=== PATIENT | male | born 1935 | race Caucasian/White ===

== ENCOUNTER → 2016-10-04 | Outpatient (CLI) | payer MEDICARE, BC ==
[~2016-10-04] MED LIST: ALB0.5V PO; ALBU2.5V4 IH; ASCO-262 PO; ASP325TEC PO; ASPI-9 PO; ASPI-983 PO; ATEN1TAB3 PO; ATEN25TA PO; ATEN50TA PO; ATN50T; Aspirin PO; CARV12.53 PO; CEFD300C3 PO; CHOL20003 PO; CLD600T; CLOP75TA28 PO; CLOP75TA69 PO; COD LIVER OIL; CRAN500C3 PO; DICL500C PO; DIGO125T6 PO; DILT240C53 PO; DIPH25CA6 PO; ENAL10TA; ENOX300V3 SQ; FAMO-119 PO; FURO10VI IV; FURO20TA4 PO; FURO40TA4 PO; GABA-488 PO; GUAI-366 PO; HYDR-3816 PO; INSA10V; INSA10V SQ; INSU100I13 SC; INSU100I13 SQ; INSU100I14 SQ; INSU100V SQ; INSU100V16 SC; INSU100V5 SQ; IPRA3AMP IH; IPRA3AMP NEB; IRON-17 PO; KRIL1CAP12 PO; LACT1CAP62 PO; LOSA25TA2 PO; LOSA25TA21 PO; LOSA50TA36 PO; MAGN400C PO; MAGN400T6 PO; MECL25TA56 PO; MELA1TAB10 PO; MULT-928 PO; MULT1TAB63 PO; MULT1TAB69 PO; NATTOKINASE; NATTOKINASE PO; NEOM14.217 TP; NIA500ERT; NIAC-4 PO; NIAC500T24 PO; NIAC500T9 PO; OMG1KC; ONDA4TAB10 PO; POLY119P5 PO; POTA-51 PO; POTA10CA43 PO; POTA20TA15 PO; POTA20TA8 PO; PRD10T PO; PRD20T PO; RMP5C; SAWP1CAP; TAMS0.4C2 PO; TAMS0.4C98 PO; TRIM100T PO; TURM500C7 PO; Tumeric PO; UBID200C; VANC10VI PO; VANC250C2 PO; VITA1CAP59; WARF-48 PO; WARF2.5T PO; WARF5TAB PO; WARF5TAB6 PO; WARF7.5T PO; WRF10T; WRF1T; WRF5T; WRF5T PO; [UNRECOGNIZED DRUG - CODE] PO
--- OUTSIDE RECORDS SUMMARY | 2016-10-04 10:23 | XMS REPORT | Continuity of Care Document ---
Author Author [facility] Organization [facility] Address Unknown Phone Unavailable Care Team Providers Care Lead Nurse Name Role Phone Jason Ru PCP [phone] Source Comments Some departments are not documenting in the electronic medical record. If you do not see the information that you expected, contact Release of Information in the Health Information Management department at [phone] for further assistance in locating additional records.[facility] Active Allergies and Adverse Reactions Allergen Noted Date Severity Reactions Comments Bactrim 06/30/2015 Medium RASH Current Medications Prescription Sig. Disp. Refills Start End Date Status Date warfarin (COUMADIN) 5 mg Take 5 mg by mouth daily. Active tablet Tues, th, fri, sun 5mg, mon, wed, fri 7.5mg7.5 4 days week 5mg 3 days week 05/31/16 magnesium oxide (MAG-OX) Take 500 mg by mouth Active 400 mg tablet daily. MULTIVITAMIN PO Take by mouth daily. Active insulin aspart 70/30 (+) Inject 30 Units into Active (NOVOLOG MIX 70-30) 100 area(s) as directed twice unit/mL (70/30) soln daily. 30 units in the afternoon and 33 units in the evening niacin 500 mg tablet Take 500 mg by mouth Active daily. other medication 1 Dose daily. Natokinase Active Cholecalciferol (Vitamin Take by mouth daily. Active D3) (VITAMIN D-3) 2,000 unit cap tamsulosin (FLOMAX) 0.4 Take 0.4 mg by mouth Active mg capsule daily. albuterol 0.083% Inhale 3 mL solution as 75 mL 11 10/20/19 Active (PROVENTIL; VENTOLIN) 2.5 directed every 4 hours as 16 mg /3 mL (0.083 %) needed for Wheezing. nebulizer solution Indications: CHRONIC OBSTRUCTIVE PULMONARY DISEASE ipratropium (ATROVENT) Inhale 2.5 mL by mouth 1 Bottle 11 10/20/19 Active 0.02 % nebulizer solution twice daily. Indications: 16 CHRONIC OBSTRUCTIVE ASTHMA diltiazem CD (CARDIZEM Take 2 Caps by mouth 60 Cap 11 10/26/19 Active CD) 240 mg capsule daily. 16 aspirin EC 81 mg tablet Take 81 mg by mouth Active daily. losartan (COZAAR) 25 mg Take 25 mg by mouth Active tablet daily. atenolol (TENORMIN) 25 mg Take 1 Tab by mouth 90 Tab 3 01/17/20 Active tablet daily. 16 furosemide (LASIX) 20 mg Take 1 Tab by mouth twice 180 Tab 3 03/29/20 Active tablet daily. 16 potassium chloride SR Take 2 Tabs by mouth 360 Cap 2 04/22/20 Active (K-DUR) 20 mEq tablet twice daily. 16 Active Problems Problem Noted Date VIPIN treated with BiPAP 05/31/2016 Last Assessment & Plan: Not tolerating current settings which have not been changed since his most recent polysom. -Autotitrating BiPAP on its way. -Will assess with nocox to evaluate need for O2 bleed in. Paroxysmal atrial fibrillation ([facility]) 06/30/2015 Overview: 12/02/13: Echo: LA size 5.5cm. EF 60%. Normal left ventricular systolic function. Mild MR, Mild TR. Essential hypertension 06/30/2015 COPD (chronic obstructive pulmonary disease) ([facility]) 06/30/2015 Last Assessment & Plan: COPD with improvement in wheezing and SOB with bronchodilator. Unfortunately he is so tremulous he cannot actuate a diskus, respimat or MDI. Given his limitation the best mechanism to deliver the medication is via nebulizer. He will not be able to be placed on maximal medical management but hopefully will be enough to improve his symptoms. Also discussed the need the evaluate him for hypoxemia. -alb and atrovent via nebulizer -Home health to train and evaluate his ability to use nebulizer/compressor -Ex ox and Noc ox Coronary artery disease involving [place] coronary artery of [place] heart 10/2014 without angina pectoris Diabetic neuropathy (HCC) 06/30/2015 Diabetes mellitus (HCC) 06/30/2015 Shortness of breath 06/30/2015 Last Assessment & Plan: Multifactorial with deconditioning, Afib, VIPIN Fatigue 06/30/2015 Obesity 06/30/2015 Peripheral neuropathy (HCC) 06/30/2015 Social History Tobacco Use Types Packs/Day Years Used Date Former Smoker Cigarettes 2 50 Smokeless Tobacco: Never Used Comments: Quit in 2002 Alcohol Use Drinks/Week oz/Week Comments No Last Filed Vital Signs Vital Sign Reading Time Taken Blood Pressure 154/88 05/31/2016 12:46 PM CDT Pulse 60 05/31/2016 12:46 PM CDT Temperature 36.7 C (98 F) 05/31/2016 12:46 PM CDT Respiratory Rate 20 05/31/2016 12:46 PM CDT Height 1.727 m (5' 8") 05/31/2016 12:46 PM CDT Weight 119.931 kg (264 lb 6.4 05/31/2016 12:46 PM CDT oz) Body Mass Index 40.21 05/31/2016 12:46 PM CDT Oxygen Saturation 96% 05/31/2016 12:46 PM CDT Plan of Care Date Type Specialty Providers Description 11/15/2016 Appointment Pulmonology Ronen Agosto MD [address] [facility] [address] [place] [address] [phone] (Fax) Health Maintenance Due Date Last Done Comments Physical (Comprehensive) 1942 Exam Pertussis Vaccine 1946 Tetanus Vaccine 1953 Dilated Eye Exam 1954 Foot Exam 1954 Hba1c 1954 Microalbumin 1954 Shingles Vaccine 1996 Prevnar/Pneumovax (#1) 2001 Influenza Vaccine 05/30/2016 Results from Last 3 Months Not on file
[2016-10-04 10:41] LABS: PROTHROMBIN TIME PATIENT 22.1 SEC (12.2-14.7)
== END ==
LOC: HH 10:19
PROVIDERS: ATTEND Internal Medicine Cardiovascular Disease
DX: I48.91 Unspecified atrial fibrillation (principal); I25.10 Atherosclerotic heart disease of native coronary artery without angina pectoris; D64.9 Anemia, unspecified; Z79.01 Long term (current) use of anticoagulants
CPT/HCPCS: 85610

== ENCOUNTER → 2016-10-04 | Outpatient (CLI) | payer MEDICARE, BC ==
--- OUTSIDE RECORDS SUMMARY | 2016-10-04 10:25 | XMS REPORT | Continuity of Care Document ---
Author Author [facility] Organization [facility] Address Unknown Phone Unavailable Care Team Providers Care Occasional Babysitter Name Role Phone Jason Ru PCP [phone] Source Comments Some departments are not documenting in the electronic medical record. If you do not see the information that you expected, contact Release of Information in the Health Information Management department at [phone] for further assistance in locating additional records.[facility] Active Allergies and Adverse Reactions Allergen Noted [...] for O2 bleed in. Paroxysmal atrial fibrillation ([facility]) 06/30/2015 Overview: 12/02/13: Echo: LA size 5.5cm. EF 60%. Normal left ventricular systolic function. Mild MR, Mild TR. Essential hypertension 06/30/2015 COPD (chronic obstructive pulmonary disease) ([facility]) 06/30/2015 Last Assessment & Plan: COPD with [...] Noc ox Coronary artery disease involving [place] coronary artery of [place] heart 10/2014 without angina pectoris Diabetic neuropathy [...] 11/15/2016 Appointment Pulmonology Ronen Agosto MD [address] [facility] [address] [place] [address] [phone] (Fax) Health Maintenance Due Date Last Done Comments Physical (Comprehensive) 1942 Exam Pertussis Vaccine 1947 Tetanus Vaccine 1953 Dilated Eye Exam 1954 Foot Exam 1954 Hba1c 1954 Microalbumin 1954 Shingles Vaccine 1996 Prevnar/Pneumovax (#1) 2001 Influenza Vaccine 05/30/2016 Results from Last 3 Months Not on file
[2016-10-04 10:28] LABS: BASOPHILS % (AUTO) 0 % (0-10); EOSINOPHILS # (AUTO) 0.2 10^3/uL (0.0-0.3); EOSINOPHILS % (AUTO) 1 % (0-10); LYMPHOCYTES % (AUTO) 19 % (12-44); MEAN CORPUSCULAR HEMOGLOBIN 32 PG (25-34); MEAN CORPUSCULAR HGB CONC 35 G/DL (32-36); MEAN CORPUSCULAR VOLUME 90 FL (80-99); MEAN PLATELET VOLUME 10.7 FL (7.4-10.4); MONOCYTES # (AUTO) 1.4 X 10^3 (0.0-1.0); MONOCYTES % (AUTO) 14 % (0-12); NEUTROPHILS # (AUTO) 6.9 X 10^3 (1.8-7.8); NEUTROPHILS % (AUTO) 66 % (42-75); PLATELET COUNT 113 10^3/uL (130-400); RED BLOOD COUNT 4.37 10^6/uL (4.35-5.85); RED CELL DISTRIBUTION WIDTH 14.4 % (10.0-14.5); WHITE BLOOD COUNT 10.4 10^3/uL (4.3-11.0)
[2016-10-04 10:52] LABS: ALBUMIN 3.3 G/DL (3.2-4.5); BILIRUBIN,TOTAL 0.8 MG/DL (0.1-1.0); CALCIUM 9.2 MG/DL (8.5-10.1); CREATININE SERUM 1.24 MG/DL (0.60-1.30); TOTAL PROTEIN 5.6 G/DL (6.4-8.2)
== END ==
LOC: HH 10:21
PROVIDERS: ATTEND Family Medicine
DX: I48.91 Unspecified atrial fibrillation (principal); I11.0 Hypertensive heart disease with heart failure; I50.9 Heart failure, unspecified; I25.10 Atherosclerotic heart disease of native coronary artery without angina pectoris; E11.51 Type 2 diabetes mellitus with diabetic peripheral angiopathy without gangrene; Z79.01 Long term (current) use of anticoagulants
CPT/HCPCS: 80053; 85025

== ENCOUNTER 2016-10-13 21:18 | Inpatient (IN) | payer MEDICARE, BC ==
[~2016-10-13] VITALS: Ht 175.3 cm; Wt 127.3 kg
[~2016-10-13 21:18] MED LIST changes: -ALB0.5V PO; -ALBU2.5V4 IH; -ASCO-262 PO; -CARV12.53 PO; -CLOP75TA28 PO; -CLOP75TA69 PO; -CRAN500C3 PO; -DIGO125T6 PO; -DIPH25CA6 PO; -ENOX300V3 SQ; -FAMO-119 PO; -FURO10VI IV; +FUROSEMIDE 40 MG/4 ML INJ (LASIX) ONE; -GABA-488 PO; -GUAI-366 PO; -HYDR-3816 PO; -INSU100V SQ; -INSU100V16 SC; -INSU100V5 SQ; -IRON-17 PO; -LACT1CAP62 PO; -LOSA25TA2 PO; -MAGN400T6 PO; -MELA1TAB10 PO; -MULT-928 PO; -NEOM14.217 TP; -NIAC500T9 PO; -ONDA4TAB10 PO; -POLY119P5 PO; -POTA-51 PO; +RX-NITROGLYCERIN 0.4 MG TAB BTL 25'S SL ONE; -TAMS0.4C98 PO; -TRIM100T PO; -TURM500C7 PO; -Tumeric PO; -WARF2.5T PO
--- OUTSIDE RECORDS SUMMARY | 2016-10-13 21:24 | XMS REPORT | Continuity of Care Document ---
Author Author [facility] Organization [facility] Address Unknown Phone Unavailable Care Team Providers Care Injection Wax Molder Name Role Phone Jason Ru PCP [phone] Source Comments Some departments are not documenting in the electronic medical record. If you do not see the information that you expected, contact Release of Information in the Health Information Management department at [phone] for further assistance in locating additional records.[facility] Active Allergies and Adverse Reactions [...] daily. 16 Active Problems Problem Noted Date VPIIN treated with BiPAP 05/31/2016 Last Assessment & Plan: Not tolerating current settings which have not been changed since his most recent polysom. -Autotitrating BiPAP on its way. -Will assess with nocox to evaluate need for O2 bleed in. Paroxysmal atrial fibrillation ([facility]) 06/30/2015 Overview: 12/02/13: Echo: LA size 5.5cm. EF 60%. Normal left ventricular systolic function. Mild MR, Mild TR. Essential hypertension 06/30/2015 COPD (chronic obstructive pulmonary disease) ([facility]) 06/30/2015 Last Assessment & Plan: [...] and Noc ox Coronary artery disease involving [place] coronary artery of [place] heart 10/2014 without angina pectoris Diabetic neuropathy (HCC) 06/30/2015 Diabetes mellitus (HCC) 06/30/2015 Shortness of breath 06/30/2015 Last Assessment & Plan: Multifactorial with deconditioning, Afib, VPIIN Fatigue 06/30/2015 Obesity 06/30/2015 Peripheral neuropathy (HCC) [...] 11/15/2016 Appointment Pulmonology Ronen Agosto MD [address] [facility] [address] [place] [address] [phone] (Fax) Health Maintenance Due Date Last Done Comments Physical (Comprehensive) 1942 Exam Pertussis Vaccine 1947 Tetanus Vaccine 1953 Dilated Eye Exam 1954 Foot Exam 1954 Hba1c 1954 Microalbumin 1954 Shingles Vaccine 1996 Prevnar/Pneumovax (#1) 2001 Influenza Vaccine 05/30/2016 Results from Last 3 Months Not on file
--- NOTE | 2016-10-13 21:27 | ED Dyspnea ---
General Stated Complaint: SOA Source of Information: EMS Exam Limitations: No Limitations (DEREK ST APRN) History of Present Illness Time Seen by Provider: 21:25 Initial Comments To ER per EMS from home with reports of shortness of breath since earlier this evening. He wears oxygen at 2 L [id number] for history of COPD. reported that after a trip to the bathroom he returned and his oxygen saturation red 60 percent and he appeared very dyspneic. She increased his oxygen level. EMS arrived and he was ultimately started on CPAP With an increase in his oxygen saturations 96 percent of his mentation did not improve nor did his appearance. He was recently discharged from the hospital from the rehabilitation unit following a prolonged bout of pneumonia complicated by COPD , atrial fibrillation, peripheral vascular disease and heart failure with preserved ejection fraction. Timing/Duration: Unknown Severity: Severe (DEREK ST APRN) Initial Comments reports that he has had increasing shortness of breath over the last 1-2 days but markedly severe tonight. No report of vomiting or fevers at home. reports that he had significant runny nose today as well. Timing/Duration: 24 Hours, Increasing Prior Episodes/Possible Cause: Occasional Episodes Modifying Factors: Improves With Coughing Associated Symptoms: Chest Pain, Cough, Edema, Fever, Weakness (OKSANA MOODY MD) Allergies and Home Medications Allergies Coded Allergies: sulfamethoxazole (Verified Allergy, Mild, RASH, 10/31/15) trimethoprim (Verified Allergy, Mild, RASH, 10/31/15) Home Medications 2,000 UNITS PO DAILY (Reported) Aspirin 81 Mg Tablet.dr 81 MG PO HS (Reported) Atenolol 50 Mg Tablet #30 50 MG PO DAILY Prescribed by: SASCHA MORTENSEN on 09/16/16851 Cholecalciferol (Vitamin D3) 2,000 Unit Capsule 2,000 UNIT PO DAILY (Reported) Diltiazem HCl 240 Mg Cap.er.24h 480 MG PO DAILY (Reported) Furosemide 40 Mg Tablet #30 40 MG PO DAILY@0700 Prescribed by: SASCHA MORTENSEN on 09/16/16851 Furosemide 40 Mg Tablet #30 40 MG PO DAILY@1400 Prescribed by: SASCHA MORTENSEN on 09/16/16851 Insulin Aspart 300 Units/3 Ml Solution 32-33 UNITS SQ HS (Reported) Insuln Asp Prt/Insulin Aspart 300 Units/3 Ml Solution 30 UNITS SQ DAILY@1300 ( Reported) Ipratropium/Albuterol Sulfate 3 Ml Ampul.neb 30Days 3 ML IH Q4H PRN PRN SHORTNESS OF BREATH Prescribed by: SASCHA MORTENSEN on 09/06/16927 Ipratropium/Albuterol Sulfate 3 Ml Ampul.neb 3 ML IH BID PRN PRN SHORTNESS OF BREATH (Reported) Losartan Potassium 50 Mg Tablet #30 50 MG PO DAILY Prescribed by: SASCHA MORTENSEN on 09/16/16851 Magnesium Oxide 500 Mg Tablet 500 MG PO HS (Reported) Multivitamin 1 Each Tablet 1 TAB PO DAILY (Reported) Niacinamide 500 Mg Tablet 500 MG PO DAILY (Reported) Potassium Chloride 20 Meq Tab.er.prt 40 MEQ PO BID (Reported) TAKES 2 (20 MEQ) TABLETS Prednisone 20 Mg Tab #30 20 MG PO DAILY Prescribed by: SASCHA MORTENSEN on 09/16/16851 Tamsulosin HCl 0.4 Mg Cap.er.24h 0.4 MG PO EVERY EVENING (Reported) Warfarin Sodium 5 Mg Tablet 30Days 5 MG PO DAILY Prescribed by: SASCHA MORTENSEN on 09/06/16927 Constitutional: see HPINo chills, No fever, other (unable to obtain review of systems due to his severe respiratory distress) (DEREK ST APRN) Other Unable to complete review of systems due to altered mental status (OKSANA MOODY MD) Past Ncoqkan-Maesvj-Bkkvav Hx Patient Social History Type Used: Cigarettes Former Smoker/When Quit: Apr 24, 2005 Recent Hopitalizations: No (DEREK ST APRN) Immunizations Up To Date Tetanus Booster (TDap): Less than 5yrs PED Vaccines UTD: No Date of Pneumonia Vaccine: Aug 28, 2016 Date of Influenza Vaccine: Aug 28, [address] ([address] APRN) Seasonal Allergies Seasonal Allergies: No (DEREK ST APRN) Surgeries HX Surgeries: Yes (CATARACTS, CARPAL TUNNEL, BILAT.THUMBS) Surgeries: Eye Surgery, Orthopedic, Tonsillectomy (DEREK ST APRN) Respiratory Hx Respiratory Disorders: Yes (CPAP AT HS) Respiratory Disorders: Sleep Apnea, COPD (DEREK ST APRN) Cardiovascular Hx Cardiac Disorders: Yes Cardiac Disorders: Atrial Fibrillation, High Cholesterol, Hypertension (DEREK ST APRN) Neurological Hx Neurological Disorders: Yes (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) Neurological Disorders: Neuropathy (DEREK ST APRN) Reproductive System Hx Reproductive Disorders: No Sexually Transmitted Disease: No HIV/AIDS: No (DEREK ST APRN) Genitourinary Hx Genitourinary Disorders: Yes Genitourinary Disorders: Benign Prostatic Hyperpl (DEREK ST APRN) Gastrointestinal Hx Gastrointestinal Disorders: No (DEREK ST APRN) Musculoskeletal Hx Musculoskeletal Disorders: No (DEREK ST APRN) Endocrine Hx Endocrine Disorders: Yes Endocrine Disorders: Diabetes, Insulin dep (DEERK ST APRN) HEENT HX ENT Disorders: Yes HEENT Disorders: Cataract, Macular Degeneration Hearing Impairment: Hard of Hearing (DEREK ST APRN) Cancer Hx Cancer: Yes (BASAL CELL CARCINOMA) Cancer: Skin (DEREK ST APRN) Psychosocial Hx Psychiatric Problems: No (DEREK ST APRN) Integumentary HX Skin/Integumentary Disorder: Yes (CELLULITIS IN LEFT KNEE EARLY OCTOBER 2013) Skin/Integumentary Disorders: Recent Skin Changes (DEREK ST APRN) Blood Transfusions Hx Blood Disorders: No Adverse Reaction to a Blood Tr: No (DEREK ST APRN) Reviewed Nursing Assessment Reviewed/Agree w Nursing PMH: Yes (OKSANA MOODY MD) Family Medical History Significant Family History: Cancer Family Medial History: COPD 19 FATHER Colon cancer 19 MOTHER Diabetes mellitus G8 SISTER Drug abuse G8 SISTER Lung cancer 19 FATHER Polio G8 BROTHER Sarcoidosis G8 BROTHER (DEREK ST APRN) Family Medial History: COPD 19 FATHER Colon cancer 19 MOTHER Diabetes mellitus G8 SISTER Drug abuse G8 SISTER Lung cancer 19 FATHER Polio G8 BROTHER Sarcoidosis G8 BROTHER (OKSANA MOODY MD) Physical Exam Vital Signs Vital Sign - Last 12Hours 10/13/16 10/13/16 10/13/16 21:18 22:30 23:10 Temp 97.9 Pulse 111 Resp 45 B/P 153/98 Pulse Ox 94 O2 Delivery NIV/CPAP O2 Flow Rate 70 FiO2 100 (OKSANA MOODY MD) Vital Signs Capillary Refill : (DEREK ST APRN) General Appearance: Chronically ill Severe Distress HEENT: PERRL/EOMI Pharynx Normal Neck: Non Tender Supple Respiratory: Accessory Muscle Use Crackles Decreased Breath Sounds Respiratory Distress Wheezing Cardiovascular: Irregularly Irregular Tachycardia Gastrointestinal: Non Tender Soft Extremity: Non Tender Pedal Edema (4+to knees bilaterally) Neurologic/Psychiatric: Disoriented x3 Motor Weakness Other (mumbling a few crosswords and moving all 4 extremities.) Skin: Normal Color Warm/Dry (OKSANA MOODY MD) Date of ETT Placement: Oct 13, 2016 Time of ETT Placement: 21:30 Intubation Method: orotracheal Medications: Etomidate, Fentanyl, Succinylcholine, Versed Positive End Tide CO2: Yes Breath Sounds after Intubation: bilateral-equal Intubation Complications: no complications Post Intubation Xray: Yes (OKSANA MOODY MD) Progress/Results/Core Measures Results/Orders Lab Results Laboratory Tests Test 10/13/16 21:28 10/13/16 21:44 10/13/16 21:53 Range/Units Alanine Aminotransferase (ALT/SGPT) 41 0-55 U/L Albumin 3.9 3.2-4.5 G/DL Alkaline Phosphatase 73 40-136 U/L Anion Gap 12 5-14 MMOL/L Aspartate Amino Transf (AST/SGOT) 37 H 5-34 U/L B-Type Natriuretic Peptide 925.6 H <100.0 PG/ML BUN/Creatinine Ratio 22 Band Neutrophils 1 % Basophils # (Auto) 0.1 0.0-0.1 10^3/uL Basophils % (Manual) 0 % Basophils (%) (Auto) 0 0-10 % Blood Morphology Comment NORMAL Blood Urea Nitrogen 28 H 7-18 MG/DL Calcium Level 9.5 8.5-10.1 MG/DL Carbon Dioxide Level 28 21-32 MMOL/L Chloride Level 97 L 98-107 MMOL/L Creatinine 1.27 0.60-1.30 MG/DL Eosinophils # (Auto) 0.2 0.0-0.3 10^3/uL Eosinophils % (Manual) 0 % Eosinophils (%) (Auto) 1 0-10 % Estimat Glomerular Filtration Rate 55 Glucose Level 273 H 70-105 MG/DL Hematocrit 43 40-54 % Hemoglobin 15.3 13.3-17.7 G/DL INR Comment 1.9 H 0.8-1.4 Lactic Acid Level 1.2 0.5-2.0 MMOL/L Lymphocytes # (Auto) 3.2 1.0-4.0 X 10^3 Lymphocytes % (Manual) 15 % Lymphocytes (%) (Auto) 15 12-44 % Mean Corpuscular Hemoglobin 32 25-34 PG Mean Corpuscular Hemoglobin Concent 35 32-36 G/DL Mean Corpuscular Volume 91 80-99 FL Mean Platelet Volume 10.5 H 7.4-10.4 FL Metamyelocytes % 2 % Monocytes # (Auto) 3.2 H 0.0-1.0 X 10^3 Monocytes % (Manual) 11 % Monocytes (%) (Auto) 15 H 0-12 % Neutrophils # (Auto) 14.5 H 1.8-7.8 X 10^3 Neutrophils % (Manual) 71 % Neutrophils (%) (Auto) 69 42-75 % Platelet Count 172 130-400 10^3/uL Potassium Level 3.6 3.6-5.0 MMOL/L Prothrombin Time 21.6 H 12.2-14.7 SEC Red Blood Count 4.77 4.35-5.85 10^6/uL Red Cell Distribution Width 14.7 H 10.0-14.5 % Sodium Level 137 135-145 MMOL/L Total Bilirubin 0.9 0.1-1.0 MG/DL Total Protein 7.2 6.4-8.2 G/DL White Blood Count 21.1 H 4.3-11.0 10^3/uL Kadeem Test YES-POS Arterial Blood Base Excess 1.5 -2.5-2.5 MMOL/L Arterial Blood HCO3 31 H 23-27 MMOL/L Arterial Blood Oxygen Saturation 99 94-100 % Arterial Blood Partial Pressure CO2 71 *H 35-45 MMHG Arterial Blood Partial Pressure O2 184 H 79-93 MMHG Arterial Blood Total CO2 33.3 H 21.0-31.0 MMOL/L Arterial Blood pH 7.26 *L 7.37-7.43 Blood Gas Inspired Oxygen 100% Blood Gas Patient Temperature 97.4 Blood Gas Puncture Site RT RADIAL Blood Gas Ventilator Setting YES Urine Bacteria NONE /HPF Urine Bilirubin NEGATIVE NEGATIVE Urine Casts NONE /LPF Urine Clarity SLIGHTLY CLOUDY Urine Color YELLOW Urine Crystals NONE /LPF Urine Culture Indicated NO Urine Glucose (UA) 3+ H NEGATIVE Urine Ketones NEGATIVE NEGATIVE Urine Leukocyte Esterase NEGATIVE NEGATIVE Urine Mucus NEGATIVE /LPF Urine Nitrite NEGATIVE NEGATIVE Urine Protein 4+ NEGATIVE Urine RBC 10-25 H /HPF Urine RBC (Auto) 3+ H NEGATIVE Urine Specific [place] 1.015 L 1.016-1.022 Urine Urobilinogen NORMAL NORMAL MG/DL Urine WBC NONE /HPF Urine pH 6 5-9 (OKSANA MOODY MD) Micro Results Microbiology 10/13/16 Influenza Types A,B Antigen (JOSEPH) - Final, Complete (OKSANA MOODY MD) My Orders Orders-OKSANA MOODY MD Catheter(Urinary) Insert & Ass ,15 (10/13/16 21:39) Ng Tube Insert & Assessment (10/13/16 21:39) O2 (10/13/16 21:39) Monitor-Rhythm Ecg Trace Only (10/13/16 21:39) Propofol Injection (Diprivan Injection) (10/13/16 22:15) Propofol Drip (Icu) (Diprivan Drip (Icu) (10/13/16 22:30) Influenza A And B Antigens (10/13/16 22:27) Propofol Drip (Icu) (Diprivan Drip (Icu) (10/13/16 22:30) Levofloxacin 750 Mg/150 Ml Iv (Levaquin (10/13/16 22:58) (OKSANA MOODY MD) Medications Given in ED Current Medications Medications Dose Ordered Sig/Nidhi Route Start Time Stop Time Status Last Admin Dose Admin Furosemide 80 mg ONCE ONCE IVP 10/13/16 21:30 10/13/16 21:31 DC 10/13/16 21:45 80 MG (OKSANA MOODY MD) Vital Signs/I&O Vital Sign - Last 12Hours 10/13/16 10/13/16 10/13/16 10/13/16 21:18 22:30 22:49 23:10 Temp 97.9 98.5 Pulse 111 75 66 Resp 45 16 16 B/P 153/98 109/68 Pulse Ox 94 100 100 100 O2 Delivery NIV/CPAP Mechanical Ventilator Mechanical Ventilator O2 Flow Rate 70 FiO2 100 80 (OKSANA MOODY MD) Progress Note : Progress Note Seen and evaluated on arrival by EMS. Patient is in extremis with significant respiratory distress despite CPAP at 10. Patient's mentation declining to despite improvement in his O2 saturations concerning for hypercarbic respiratory failure. Patient has significant crackles bilaterally with hypertension. I did discuss with the on her arrival shortly after his arrival that patient may need intubation. She states that she does not want her to and to do everything we can. We elected for emergent intubation. He was intubated by me and placed on ventilator after etomidate and succinylcholine. We will continue postintubation sedation with propofol. Interim dosing of Versed and fentanyl given. Labs, EKG, chest x-ray, OG tube and Soriano catheter placed. Lasix 80 mg IV given. Monitor patient. 2229: Patient did receive rocuronium 50 mg IV as he was overbreathing the vent. Patient did become hypotensive with propofol and this was titrated down. Vent was changed. Monitor patient. 2299: Patient tolerating new vent much better. Propofol has been titrated up to 25 mcg/kg/m and patient's blood pressure has stabilized at 109/68 with a heart rate of 72 and O2 sat 98 percent on vent at rate of 16 with tidal line 500 and PEEP of 5. FiO2 titrated down to 50 percent currently. I have discussed the case with Dr. Chamberlain. Patient does have findings of right-sided pneumonia. This would be healthcare acquired due to recent hospitalization. Levaquin 500 mg IV has been given. Patient's lactic acid is 1.2. Currently he is not hypotensive. Patient does have significant volume overload concerns and high volume fluid resuscitation would be detrimental to this patient. I do believe that hypotension was related to his medication effect and initial ventilator concerns. Overall that has improved and he has been titrated up on his propofol. He is not hypotensive. He does have findings of sepsis but not septic shock and we will hold fluid resuscitation now. We are actively trying to decrease overall body volume of fluid with Lasix currently. Admit inpatient status, critical condition. Family agrees with plan. (OKSANA MOODY MD) ECG Initial ECG Impression Date: Oct 13, 2016 Initial ECG Impression Time: 21:36 Initial ECG Rate: 96 Initial ECG Rhythm: A Fib/Flutter Comment Atrial fibrillation rate 96 with left bundle branch block. Normal axis. No evidence of ST elevation NM. Similar to previous of 09/02/16. Interpreted by me. (OKSANA MOODY MD) Diagnostic Imaging Diagonstic Imaging: Xray Plain Films/CT/US/NM/MRI: chest Comments Right middle lung pneumonia. ET tube in good position. OG tube in good position. Reviewed: Reviewed by Me (OKSANA MOODY MD) Departure Communication Time/Spoke to Admitting Phy: 23:00 (OKSANA MOODY MD) Impression Impression: Primary Impression: Acute respiratory failure with hypoxia and hypercapnia Additional Impressions: Pneumonia involving right lung Qualified Code: J18.1 - Lobar pneumonia, unspecified organism Volume overload Qualified Code: E87.70 - Fluid overload, unspecified Disposition: ADMITTED INPATIENT Condition: Critical Decision to Admit Reason: Admit from ER (General) Decision to Admit/Date: Oct 13, 2016 Time/Decision to Admit Time: 23:00 (OKSANA MOODY MD) Departure-Patient Inst. Referrals: ASCENCION CADENA MD (PCP/Family) Primary Care Physician DEREK ST APRN Oct 13, 2016 21:27 OKSANA MOODY MD Oct 13, 2016 21:48
[2016-10-13] MEDS ORDERED: PROPOFOL DRIP (ICU) 100 ML IV ONE (21:28)
[2016-10-13] MEDS ORDERED: NITROGLYCERIN DRIP 25 MG/D5W 250 ML IV SCH (21:30)
[2016-10-13] MEDS ORDERED: FUROSEMIDE 40 MG/4 ML INJ (LASIX) IVP ONE (21:30)
[2016-10-13 21:40] LABS: BASOPHILS # (AUTO) 0.1 10^3/uL (0.0-0.1); BASOPHILS % (AUTO) 0 % (0-10); EOSINOPHILS # (AUTO) 0.2 10^3/uL (0.0-0.3); EOSINOPHILS % (AUTO) 1 % (0-10); LYMPHOCYTES # (AUTO) 3.2 X 10^3 (1.0-4.0); LYMPHOCYTES % (AUTO) 15 % (12-44); MEAN CORPUSCULAR HEMOGLOBIN 32 PG (25-34); MEAN CORPUSCULAR HGB CONC 35 G/DL (32-36); MEAN CORPUSCULAR VOLUME 91 FL (80-99); MEAN PLATELET VOLUME 10.5 FL (7.4-10.4); MONOCYTES # (AUTO) 3.2 X 10^3 (0.0-1.0); MONOCYTES % (AUTO) 15 % (0-12); NEUTROPHILS # (AUTO) 14.5 X 10^3 (1.8-7.8); NEUTROPHILS % (AUTO) 69 % (42-75); PLATELET COUNT 172 10^3/uL (130-400); RED BLOOD COUNT 4.77 10^6/uL (4.35-5.85); RED CELL DISTRIBUTION WIDTH 14.7 % (10.0-14.5); WHITE BLOOD COUNT 21.1 10^3/uL (4.3-11.0)
[2016-10-13 21:46] LABS: INR 1.9 (0.8-1.4); PROTHROMBIN TIME PATIENT 21.6 SEC (12.2-14.7)
[2016-10-13 21:52] LABS: ABG BASE EXCESS 1.5 MMOL/L (-2.5-2.5); ABG HCO3 31 MMOL/L (23-27); ABG OXYGEN SATURATION 99 % (94-100); ABG PO2 184 MMHG (79-93); ABG TCO2 33.3 MMOL/L (21.0-31.0)
[2016-10-13 21:55] LABS: ABG PCO2 71 MMHG (35-45); ABG PH 7.26 (7.37-7.43)
[2016-10-13 21:56] LABS: ALLENS TEST YES-POS; PATIENT TEMP 97.4
[2016-10-13 21:57] LABS: ALBUMIN 3.9 G/DL (3.2-4.5); BILIRUBIN,TOTAL 0.9 MG/DL (0.1-1.0); CALCIUM 9.5 MG/DL (8.5-10.1); CREATININE SERUM 1.27 MG/DL (0.60-1.30); POTASSIUM 3.6 MMOL/L (3.6-5.0); TOTAL PROTEIN 7.2 G/DL (6.4-8.2)
[2016-10-13] MEDS ORDERED: ETOMIDATE IV SOLN 20 MG/10 ML VIAL IV ONE (22:00)
[2016-10-13] MEDS ORDERED: fentaNYL INJECTION 100 MCG/2 ML AMP INJ ONE (22:00)
[2016-10-13] MEDS ORDERED: MIDAZOLAM 5 MG/5 ML (VERSED) VIAL INJ ONE (22:00)
[2016-10-13] MEDS ORDERED: ROCURONIUM 50 MG/5 ML (ZEMURON) VIAL IV ONE (22:00)
[2016-10-13] MEDS ORDERED: SUCCINYLCHOLINE INJ 100 MG/5 ML SYR INJ ONE (22:00)
[2016-10-13 22:03] LABS: BILIRUBIN,URINE NEGATIVE (NEGATIVE); KETONES,URINE NEGATIVE (NEGATIVE); LEUKOCYTE ESTERASE ,URINE NEGATIVE (NEGATIVE); NITRITE,URINE NEGATIVE (NEGATIVE); PH,URINE 6 (5-9); PROTEIN,URINE 4+ (NEGATIVE); UROBILINOGEN,URINE NORMAL (NORMAL)
[2016-10-13] MEDS ORDERED: DOPamine DRIP 250 ML IV ONE (22:03)
[2016-10-13 22:10] LABS: BAND NEUTROPHILS 1 %; BASOPHILS % (MANUAL) 0 %; EOSINOPHILS % (MANUAL) 0 %; LYMPHOCYTES % (MANUAL) 15 %; METAMYELOCYTES % 2 %; NEUTROPHILS % (MANUAL) 71 %
[2016-10-13] MEDS ORDERED: PROPOFOL INJECTION 50 ML IV SCH (22:15)
[2016-10-13] MEDS ORDERED: PROPOFOL DRIP (ICU) 100 ML IV SCH ×2 (22:30)
[2016-10-13] MEDS ORDERED: LEVOFLOXACIN 750 MG/150 ML IV 150 ML IV STA (22:58)
[2016-10-13 23:10] VITALS: BP 109/68
[2016-10-13 23:47] VITALS: BP 111/52
[2016-10-14] VITALS (36 sets, daily range): BP systolic 100–142; BP diastolic 50–94
[2016-10-14] MEDS ORDERED: NS IV 1000 ML 1,000 ML ONE (00:01)
[2016-10-14] MEDS ORDERED: VANCOMYCIN 1 GM/NS 250 ML IVPB IV SCH ×2 (00:30)
[2016-10-14] MEDS: NS IV 1000 ML 1,000 ML IV SCH ×2 (00:33→13:16)
[2016-10-14] MEDS: CEFEPIME 2 GM/NS 50 ML IVPB IV SCH ×4 (01:26→15:45)
[2016-10-14] MEDS ORDERED: PRD20T PO (03:09)
[2016-10-14] MEDS ORDERED: Tumeric PO (03:09)
[2016-10-14] MEDS ORDERED: LACT1CAP62 PO (03:11)
[2016-10-14 04:41] LABS: BASOPHILS % (AUTO) 0 % (0-10); EOSINOPHILS # (AUTO) 0.1 10^3/uL (0.0-0.3); EOSINOPHILS % (AUTO) 1 % (0-10); LYMPHOCYTES # (AUTO) 1.2 X 10^3 (1.0-4.0); LYMPHOCYTES % (AUTO) 12 % (12-44); MEAN CORPUSCULAR HEMOGLOBIN 32 PG (25-34); MEAN CORPUSCULAR HGB CONC 35 G/DL (32-36); MEAN CORPUSCULAR VOLUME 92 FL (80-99); MEAN PLATELET VOLUME 10.5 FL (7.4-10.4); MONOCYTES # (AUTO) 1.9 X 10^3 (0.0-1.0); MONOCYTES % (AUTO) 18 % (0-12); NEUTROPHILS # (AUTO) 7.3 X 10^3 (1.8-7.8); NEUTROPHILS % (AUTO) 69 % (42-75); PLATELET COUNT 114 10^3/uL (130-400); RED BLOOD COUNT 3.55 10^6/uL (4.35-5.85); RED CELL DISTRIBUTION WIDTH 14.6 % (10.0-14.5); WHITE BLOOD COUNT 10.5 10^3/uL (4.3-11.0)
[2016-10-14 05:08] LABS: ALBUMIN 2.7 G/DL (3.2-4.5); CALCIUM 8.7 MG/DL (8.5-10.1); CREATININE SERUM 1.31 MG/DL (0.60-1.30); MAGNESIUM 2.1 MG/DL (1.8-2.4); PHOSPHORUS 3.8 MG/DL (2.3-4.7); POTASSIUM 3.6 MMOL/L (3.6-5.0); TOTAL PROTEIN 4.7 G/DL (6.4-8.2)
[2016-10-14 05:35] LABS: ABG BASE EXCESS 5.4 MMOL/L (-2.5-2.5); ABG HCO3 31 MMOL/L (23-27); ABG OXYGEN SATURATION 93 % (94-100); ABG PCO2 48 MMHG (35-45); ABG PH 7.43 (7.37-7.43); ABG PO2 61 MMHG (79-93); ABG TCO2 32.4 MMOL/L (21.0-31.0)
[2016-10-14 05:36] LABS: ALLENS TEST YES-POS
[2016-10-14] MEDS: MAGNESIUM 1 GM/100 ML IVPB 100 ML IV SCH (06:00)
[2016-10-14] MEDS: POTASSIUM CL 10MEQ/50ML IVPB 50 ML IV SCH ×3 (06:00→07:54)
[2016-10-14] MEDS: KCL 20 MEQ TAB (K-DUR) PO SCH (06:00)
--- NOTE | 2016-10-14 07:09 | Pulmonary Consultation ---
History of Present Illness History of Present Illness Date of Consultation 10/14/16 07:02 Date of Admission History of Present Illness 80yo with hx of severe COPD oxygen dependents presents secondary to worsening SOB. PT was placed on CPAP and oxygen saturations imporved. PT was intubated in ED. He was recently discharged from the hospital from the rehabilitation unit following a prolonged bout of pneumonia complicated by COPD, atrial fibrillation , peripheral vascular disease and heart failure with preserved ejection fraction. I am consulted for pulmonary management. Allergies and Home Medications Allergies Coded Allergies: sulfamethoxazole (Verified Allergy, Mild, RASH, 10/31/15) trimethoprim (Verified Allergy, Mild, RASH, 10/31/15) Home Medications 2,000 UNITS PO DAILY (Reported) 500 MG PO DAILY (Reported) Aspirin 81 Mg Tablet.dr 81 MG PO DAILY (Reported) Atenolol 50 Mg Tablet #30 50 MG PO DAILY Prescribed by: SASCHA MORTENSEN on 09/16/16 0852 Cholecalciferol (Vitamin D3) 2,000 Unit Capsule 2,000 UNIT PO DAILY (Reported) Diltiazem HCl 240 Mg Cap.er.24h 480 MG PO DAILY (Reported) Furosemide 40 Mg Tablet #30 40 MG PO DAILY@0700 Prescribed by: SASCHA MORTENSEN on 09/16/16 0852 Furosemide 40 Mg Tablet #30 40 MG PO DAILY@1400 Prescribed by: SASCHA MORTENSEN on 09/16/16 08 Insulin Aspart 300 Units/3 Ml Solution 32-33 UNITS SQ HS (Reported) Insuln Asp Prt/Insulin Aspart 300 Units/3 Ml Solution 30 UNITS SQ DAILY ( Reported) Daily in am Ipratropium/Albuterol Sulfate 3 Ml Ampul.neb 30Days 3 ML IH Q4H PRN PRN SHORTNESS OF BREATH Prescribed by: SASCHA MORTENSEN on 09/06/16 0928 Ipratropium/Albuterol Sulfate 3 Ml Ampul.neb 3 ML IH BID PRN PRN SHORTNESS OF BREATH (Reported) Lactobacillus Acidophilus 1 Each Capsule 1 EACH PO DAILY (Reported) Losartan Potassium 50 Mg Tablet #30 50 MG PO DAILY Prescribed by: SASCHA MORTENSEN on 09/16/16 0852 Magnesium Oxide 500 Mg Tablet 500 MG PO HS (Reported) Multivitamin 1 Each Tablet 1 TAB PO DAILY (Reported) Niacinamide 500 Mg Tablet 500 MG PO DAILY (Reported) Potassium Chloride 20 Meq Tab.er.prt 40 MEQ PO BID (Reported) TAKES 2 (20 MEQ) TABLETS Prednisone 20 Mg Tab #11 20 MG PO DAILY (Reported) Tapered down to 5 mg PO daily. Tamsulosin HCl 0.4 Mg Cap.er.24h 0.4 MG PO EVERY EVENING (Reported) Warfarin Sodium 5 Mg Tablet 30Days 5 MG PO DAILY Prescribed by: SASCHA MORTENSEN on 09/06/16 0928 Past Eegwkhu-Vvlgzi-Qgsacc Hx Patient Social History Alcohol Use: Denies Use Recreational Drug Use: No Smoking Status: Former Smoker Type Used: Cigarettes Former Smoker/When Quit: Apr 24, 2005 Recent Foreign Travel: No Contact w/Someone Who Travel: No Recent Infectious Disease Expo: No Recent Hopitalizations: Yes (Pneumonia 08/2016) Physical Abuse Screen: No Sexual Abuse: No Immunizations Up To Date Tetanus Booster (TDap): Less than 5yrs PED Vaccines UTD: No Date of Pneumonia Vaccine: Aug 28, 2016 Date of Influenza Vaccine: Aug 28, 2016 Seasonal Allergies Seasonal Allergies: No Surgeries HX Surgeries: Yes (CATARACTS, CARPAL TUNNEL, BILAT.THUMBS) Surgeries: Eye Surgery, Orthopedic, Tonsillectomy Respiratory Hx Respiratory Disorders: Yes (CPAP AT HS) Respiratory Disorders: Pneumonia, Sleep Apnea, COPD Cardiovascular Hx Cardiac Disorders: Yes Cardiac Disorders: Atrial Fibrillation, High Cholesterol, Hypertension Neurological Hx Neurological Disorders: Yes (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) Neurological Disorders: Neuropathy Reproductive System Hx Reproductive Disorders: No Sexually Transmitted Disease: No HIV/AIDS: No Genitourinary Hx Genitourinary Disorders: Yes Genitourinary Disorders: Benign Prostatic Hyperpl Gastrointestinal Hx Gastrointestinal Disorders: No Musculoskeletal Hx Musculoskeletal Disorders: No Endocrine Hx Endocrine Disorders: Yes Endocrine Disorders: Diabetes, Insulin dep HEENT HX ENT Disorders: Yes HEENT Disorders: Cataract, Macular Degeneration Hearing Impairment: Hard of Hearing Cancer Hx Cancer: Yes (BASAL CELL CARCINOMA) Cancer: Skin Psychosocial Hx Psychiatric Problems: No Integumentary HX Skin/Integumentary Disorder: Yes (CELLULITIS IN LEFT KNEE EARLY OCTOBER 2013) Skin/Integumentary Disorders: Recent Skin Changes Blood Transfusions Hx Blood Disorders: No Adverse Reaction to a Blood Tr: No Reviewed Nursing Assessment Reviewed/Agree w Nursing PMH: Yes Family Medical History Significant Family History: Cancer Family Medial History: COPD 19 FATHER Colon cancer 19 MOTHER Diabetes mellitus G8 SISTER Drug abuse G8 SISTER Lung cancer 19 FATHER Polio G8 BROTHER Sarcoidosis G8 BROTHER Exam Exam Vital Signs Date Time Temp Pulse Resp B/P Pulse Ox O2 Delivery O2 Flow Rate FiO2 10/14/16 06:52 62 115/72 Mechanical Ventilator 50.00 10/14/16 06:42 64 10 90 45 10/14/16 06:01 57 15 113/78 91 Mechanical Ventilator 45.00 10/14/16 05:00 53 114/77 92 Mechanical Ventilator 45.00 10/14/16 04:42 47 16 91 45 10/14/16 04:00 91 Mechanical Ventilator 45 10/14/16 04:00 97.0 55 17 102/65 91 Mechanical Ventilator 45.00 10/14/16 03:25 51 16 91 45 10/14/16 03:00 56 100/70 91 Mechanical Ventilator 45.00 10/14/16 02:00 56 103/68 91 Mechanical Ventilator 45.00 10/14/16 01:39 60 105/68 10/14/16 01:00 70 16 105/68 92 Mechanical Ventilator 45.00 10/14/16 01:00 70 105/68 92 Mechanical Ventilator 45.00 10/14/16 00:35 69 111/72 10/14/16 00:23 67 18 95 50 10/14/16 00:18 67 10/14/16 00:01 70 10/14/16 00:00 65 110/73 96 Mechanical Ventilator 50.00 10/13/16 23:47 96 Mechanical Ventilator 50 10/13/16 23:47 97.0 70 18 111/52 96 Mechanical Ventilator 50.00 10/13/16 23:40 99.1 61 16 98/68 96 Mechanical Ventilator 10/13/16 23:21 98.5 72 16 96 Mechanical Ventilator 50 10/13/16 23:10 98.5 66 16 109/68 100 Mechanical Ventilator 70 10/13/16 22:49 100 Mechanical Ventilator 80 10/13/16 22:30 75 16 100 100 10/13/16 21:18 97.9 111 45 153/98 94 NIV/CPAP I & O 10/14/16 07:00 Intake Total 900 ml Output Total 550 ml Balance 350 ml General Appearance: Chronically ill Severe Distress HEENT: PERRL/EOMI Pharynx Normal Neck: Non Tender Supple Respiratory: Accessory Muscle Use Crackles Decreased Breath Sounds Respiratory Distress Wheezing Cardiovascular: Irregularly Irregular Tachycardia Capillary Refill: Less Than 3 Seconds Extremity: Non Tender Pedal Edema (4+to knees bilaterally) Neurologic/Psychiatric: Disoriented x3 Motor Weakness Other (mumbling a few crosswords and moving all 4 extremities.) Skin: Normal Color Warm/Dry Results Lab Laboratory Tests 10/13/16 21:28 10/14/16 04:00 Assessment/Plan Assessment/Plan Acute respiratory failure -Continue current vent management. Pulmonary edema -Lasix Hx of severe COPD Clinical Quality Measures DVT/VTE Risk/Contraindication: Risk Factor Score Per Nursin RFS Level Per Nursing on Admit: 4+=Very High KEIKO VALENZUELA DO Oct 14, 2016 07:08
--- NOTE | 2016-10-14 07:28 | Diagnostic Imaging Report ---
INDICATION: Intubation. COMPARISON: 09/13/2016. FINDINGS: ET tube has tip 3 cm above the latisha. Enteric tube is seen coursing into the stomach and off the telhp-aa-bnjh. There are bilateral interstitial opacities in the midlung zones, which are new since prior examination. On the right, there are ill-defined pulmonary airspace opacities. No pleural effusion or pneumothorax. Normal heart size. IMPRESSION: 1. Increasing bilateral midlung zone interstitial opacities which could be due to developing pulmonary edema. Additionally, there are increased heterogeneous opacities in the right midlung zone which may relate to pneumonia in the appropriate setting. 2. Life support devices as detailed above. Dictated by: Dictated on workstation # [id number]
[2016-10-14] MEDS ORDERED: RT-ALBUTEROL/IPRATROPIUM 3 ML (DUONEB) VIAL INH PRN (08:00)
[2016-10-14] MEDS ORDERED: RT-ALBUTEROL/IPRATROPIUM 3 ML (DUONEB) VIAL INH SCH (08:00)
--- NOTE | 2016-10-14 08:04 | Diagnostic Imaging Report ---
INDICATION: Respiratory distress. 0511 hours Comparison is made study of one day earlier. FINDINGS: There is mild cardiomegaly and pulmonary venous congestion. There is no focal consolidation, although mildly prominent interstitial markings have increased since previous study. There is no evidence of pneumothorax. Old right rib fractures are noted. Nasogastric tube passes below the diaphragm. Enteric tube is in place with tip just below the thoracic inlet. IMPRESSION: Increased interstitial prominence may reflect mild interstitial edema or pneumonitis. No consolidation or other significant change is identified. Dictated by: Dictated on workstation # [id number]
--- NOTE | 2016-10-14 08:54 | History & Physical-Hospitalist ---
HPI History of Present Illness: HPI/Chief Complaint This is a 80-year-old white male just recently discharged after a 3 week hospitalization for respiratory failure and diabetes out of control. He had been doing fairly well but had a being fluctuating weight at home. He is been followed closely by home health. denies any increased pedal edema. Evidently he got up in the middle of the night and went to the bathroom to get a drink of water. He became acutely short of breath and unable to catch his breath despite using his home oxygen. He presented to the emergency room in hypercapnic respiratory failure and was intubated. This morning he is still intubated with improved blood gases. Chest x-ray shows increased interstitial edema. Source: family Exam Limitations: clinical condition Date Seen 10/14/16 Attending Physician Hiram Chamberlain MD PCP Ru Gomez MD Referring Physician Date of Admission Oct 13, 2016 at 23:19 Home Medications & Allergies Home Medications Reviewed patient Home Medication Reconciliation Form Allergies Coded Allergies: sulfamethoxazole (Verified Allergy, Mild, RASH, 10/31/15) trimethoprim (Verified Allergy, Mild, RASH, 10/31/15) Past Hhbiyls-Xurukk-Maenwd Hx Patient Social History Alcohol Use: Denies Use Recreational Drug Use: No Smoking Status: Former Smoker Former smoker/When Quit: Apr 24, 2005 Type Used: Cigarettes Physical Abuse Screen: No Sexual Abuse: No Recent Foreign Travel: No Contact w/other who traveled: No Recent Hopitalizations: Yes (Pneumonia 08/2016) Recent Infectious Disease Expo: No Immunizations Up To Date Tetanus Booster (TDap): Less than 5yrs Date of Pneumonia Vaccine: Aug 28, 2016 Date of Influenza Vaccine: Aug 28, 2016 Seasonal Allergies Seasonal Allergies: No Surgeries HX Surgeries: Yes (CATARACTS, CARPAL TUNNEL, BILAT.THUMBS) Surgeries: Eye Surgery, Orthopedic, Tonsillectomy Respiratory Hx Respiratory Disorders: Yes (CPAP AT HS) Cardiovascular Hx Cardiovascular Disorders: Yes Cardiac Disorders: Atrial Fibrillation, High Cholesterol, Hypertension Neurological Hx Neurological Disorders: Yes (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) Neurological Disorders: Neuropathy Reproductive System Hx Reproductive Disorders: No Sexually Transmitted Disease: No HIV/AIDS: No Genitourinary Hx Genitourinary Disorders: Yes Genitourinary Disorders: Benign Prostatic Hyperpl Gastrointestinal Hx Gastrointestinal Disorders: No Musculoskeletal Hx Musculoskeletal Disorders: No Endocrine Hx Endocrine Disorders: Yes Endocrine Disorders: Diabetes, Insulin dep HEENT HX ENT Disorders: Yes HEENT Disorders: Cataract, Macular Degeneration Hearing Impairment: Hard of Hearing Cancer Hx Cancer: Yes (BASAL CELL CARCINOMA) Cancer: Skin Psychosocial Hx Psychiatric Problems: No Integumentary HX Skin/Integumentary Disorder: Yes (CELLULITIS IN LEFT KNEE EARLY OCTOBER 2013) Skin/Integumentary Disorders: Recent Skin Changes Blood Transfusions Hx Blood Disorders: No Adverse Reaction to a Blood Tr: No Reviewed Nursing Assessment Reviewed/Agree w Nursing PMH: Yes Family Medical History Significant Family History: Cancer Family Hx: COPD 19 FATHER Colon cancer 19 MOTHER Diabetes mellitus G8 SISTER Drug abuse G8 SISTER Lung cancer 19 FATHER Polio G8 BROTHER Sarcoidosis G8 BROTHER Review of Systems Constitutional: weight gain Respiratory: short of breath Physical Exam Physical Exam Vital Signs Vital Sign - Last 12Hours 10/13/16 10/13/16 10/13/16 21:18 22:30 23:10 Temp 97.9 Pulse 111 Resp 45 B/P 153/98 Pulse Ox 94 O2 Delivery NIV/CPAP O2 Flow Rate 70 FiO2 100 Capillary Refill : Less Than 3 Seconds General Appearance: Other (Intubated) HEENT: Other (Patient will edema) Neck: Limited Range of Motion Respiratory: Decreased Breath Sounds Rales Cardiovascular: Irregularly Irregular Gastrointestinal: Soft Rectal: Deferred Extremity: Pedal Edema Neurologic/Psychiatric: Other (Intubated sedated) Results Results/Procedures Lab Laboratory Tests 10/13/16 21:28 10/14/16 04:00 Assessment/Plan Admission Diagnosis 1. Acute respiratory uvbcoph-uuxvcntvwfg-bt cefepime, Levaquin, and vancomycin and steroids 2. Chronic respiratory failure 3. Chronic atrial fibrillation 4. Type II diabetes out of control 5. CHF most likely secondary to diastolic dysfunction 6. Morbid obesity 7. Deconditioning 8. Anemia with a drop in hemoglobin- Hemoccult stools. NG aspirin 9. Acute renal insufficiency Plan- continue ventilator support, Lasix as needed, monitor blood sugars, pulmonary and cardiac consultation, Clinical Quality Measures DVT/VTE Risk/Contraindication: Risk Factor Score Per Nursin RFS Level Per Nursing on Admit: 4+=Very High ASHLEY MEJIAS MD Oct 14, 2016 08:54
[2016-10-14] MEDS: RT-ALBUTEROL/IPRATROPIUM 3 ML (DUONEB) VIAL INH SCH ×4 (10:08→21:57)
[2016-10-14] MEDS ORDERED: PRD10T PO (10:46)
[2016-10-14] MEDS ORDERED: GABA-488 PO (10:46)
[2016-10-14] MEDS ORDERED: WARF-48 PO (10:46)
[2016-10-14] MEDS ORDERED: ATEN25TA PO (10:46)
[2016-10-14] MEDS ORDERED: FURO40TA4 PO (10:57)
[2016-10-14] MEDS ORDERED: LOSA50TA36 PO (10:57)
[2016-10-14] MEDS ORDERED: inSUlin (REGULAR) HUMAN 1 UNIT/0.01 ML (CHARGE PER UNIT) SC SCH (11:00)
[2016-10-14] MEDS ORDERED: VANCOMYCIN INJECTION 1,750 MG in NS IV 500 ML 500 ML IV SCH (11:00)
[2016-10-14] MEDS: FUROSEMIDE 40 MG/4 ML INJ (LASIX) IV SCH ×2 (13:16→21:18)
[2016-10-14 13:48] LABS: OCCULT BLOOD NEGATIVE QC NEGATIVE (NEGATIVE); OCCULT BLOOD POSITIVE QC POSITIVE (POSITIVE); OCCULT BLOOD,GASTRIC FLUID POSITIVE (NEGATIVE)
--- NOTE | 2016-10-14 14:16 | Physician Query-General Query ---
Physician Query-General Query to Physician: For clarification: 1. ED record indicated that the patient did have findings of sepsis, not septic shock. Do you agree or disagree with the diagnosis of sepsis? 2. If sepsis, was the acute respiratory failure related to it or other etiology ? 3. Pneumonia was listed on ED also. Was it ruled in or out? 4. Was patient's diastolic heart failure acute, chronic or acute on chronic? PHYSICIAN RESPONSE: Based on the clinical findings in the record, please respond to the query above on this document as an addendum. Possible, probable, or questionable diagnosis can be coded for INPATIENTS ONLY. Physician Response: Physician Response 1. No sepsis 2. acute RESPIRATORY FAILURE SECONDARY TO PULMONARY EDEMA FROM DIASTOLIC DYSFUNCTION 3. No evidence for pneumonia 4. Acute on chronic If you have questions please contact: Impregnating Tank Operator:Uma Figueroa [facility] Ext:[phone] Thank you for your time and cooperation. Clinical Bleacher Pulp/Impregnating Tank Operator This is a permanent part of the medical record UMA FIGUEROA Oct 14, 2016 14:16 ASHLEY MEJIAS MD Oct 17, 2016 10:20
[2016-10-14 14:27] LABS: BASOPHILS % (AUTO) 0 % (0-10); EOSINOPHILS # (AUTO) 0.1 10^3/uL (0.0-0.3); EOSINOPHILS % (AUTO) 1 % (0-10); LYMPHOCYTES # (AUTO) 1.5 X 10^3 (1.0-4.0); LYMPHOCYTES % (AUTO) 14 % (12-44); MEAN CORPUSCULAR HEMOGLOBIN 32 PG (25-34); MEAN CORPUSCULAR HGB CONC 35 G/DL (32-36); MEAN CORPUSCULAR VOLUME 93 FL (80-99); MEAN PLATELET VOLUME 10.1 FL (7.4-10.4); MONOCYTES # (AUTO) 1.6 X 10^3 (0.0-1.0); MONOCYTES % (AUTO) 15 % (0-12); NEUTROPHILS # (AUTO) 7.3 X 10^3 (1.8-7.8); NEUTROPHILS % (AUTO) 70 % (42-75); PLATELET COUNT 101 10^3/uL (130-400); RED BLOOD COUNT 3.82 10^6/uL (4.35-5.85); RED CELL DISTRIBUTION WIDTH 14.7 % (10.0-14.5); WHITE BLOOD COUNT 10.5 10^3/uL (4.3-11.0)
[2016-10-14] MEDS: inSUlin (REGULAR) HUMAN 1 UNIT/0.01 ML (CHARGE PER UNIT) SC SCH (18:00)
[2016-10-14] MEDS: CATHETER FLUSH 10 ML SYR IV PRN (21:18)
[2016-10-14] MEDS: LEVOFLOXACIN 750 MG/150 ML D5W (PRE-MIX) IV SCH (22:12)
[2016-10-15] VITALS (28 sets, daily range): BP systolic 87–154; BP diastolic 60–107
[2016-10-15] MEDS: CEFEPIME 2 GM/NS 50 ML IVPB IV SCH ×2 (00:51)
[2016-10-15] MEDS: RT-ALBUTEROL/IPRATROPIUM 3 ML (DUONEB) VIAL INH SCH ×6 (02:35→22:31)
[2016-10-15 04:44] LABS: BASOPHILS % (AUTO) 0 % (0-10); EOSINOPHILS # (AUTO) 0.1 10^3/uL (0.0-0.3); EOSINOPHILS % (AUTO) 1 % (0-10); LYMPHOCYTES # (AUTO) 1.3 X 10^3 (1.0-4.0); LYMPHOCYTES % (AUTO) 12 % (12-44); MEAN CORPUSCULAR HEMOGLOBIN 32 PG (25-34); MEAN CORPUSCULAR HGB CONC 34 G/DL (32-36); MEAN CORPUSCULAR VOLUME 94 FL (80-99); MONOCYTES # (AUTO) 1.8 X 10^3 (0.0-1.0); MONOCYTES % (AUTO) 17 % (0-12); NEUTROPHILS # (AUTO) 7.5 X 10^3 (1.8-7.8); NEUTROPHILS % (AUTO) 70 % (42-75); PLATELET COUNT 111 10^3/uL (130-400); RED BLOOD COUNT 3.82 10^6/uL (4.35-5.85); RED CELL DISTRIBUTION WIDTH 14.8 % (10.0-14.5); WHITE BLOOD COUNT 10.7 10^3/uL (4.3-11.0)
[2016-10-15 04:44] LABS: ABG BASE EXCESS 5.9 MMOL/L (-2.5-2.5); ABG HCO3 31 MMOL/L (23-27); ABG OXYGEN SATURATION 94 % (94-100); ABG PCO2 49 MMHG (35-45); ABG PH 7.42 (7.37-7.43); ABG PO2 66 MMHG (79-93); ABG TCO2 32.8 MMOL/L (21.0-31.0)
[2016-10-15 04:50] LABS: ALLENS TEST YES-POS; PATIENT TEMP 98.4
[2016-10-15 05:10] LABS: ALBUMIN 2.8 G/DL (3.2-4.5); CALCIUM 8.6 MG/DL (8.5-10.1); CREATININE SERUM 1.52 MG/DL (0.60-1.30); PHOSPHORUS 3.5 MG/DL (2.3-4.7); POTASSIUM 3.2 MMOL/L (3.6-5.0); TOTAL PROTEIN 5.1 G/DL (6.4-8.2)
[2016-10-15] MEDS: NS IV 1000 ML 1,000 ML IV SCH ×2 (05:24→17:24)
[2016-10-15] MEDS: POTASSIUM CL 10MEQ/50ML IVPB 50 ML IV SCH ×5 (05:38→08:17)
[2016-10-15] MEDS: MAGNESIUM 1 GM/100 ML IVPB 100 ML IV SCH (05:42)
[2016-10-15] MEDS: KCL 20 MEQ TAB (K-DUR) PO SCH ×3 (05:42→17:23)
--- NOTE | 2016-10-15 06:34 | Pulmonary Progress Note ---
Subjective Subjective/Events-last exam no complications noted. Exam Exam Vital Signs Date Time Temp Pulse Resp B/P Pulse Ox O2 Delivery O2 Flow Rate FiO2 10/15/16 06:15 113 16 106/71 98 Mechanical Ventilator 35.00 10/15/16 06:10 112 16 100 35 10/15/16 06:00 112 16 106/71 100 Mechanical Ventilator 35.00 10/15/16 05:00 120 9 107/83 98 Mechanical Ventilator 35.00 10/15/16 04:32 123 19 94 40 10/15/16 04:00 97 Mechanical Ventilator 35 10/15/16 04:00 98.4 118 18 108/81 97 Mechanical Ventilator 35.00 10/15/16 03:10 126 21 118/67 94 Mechanical Ventilator 35.00 10/15/16 03:00 125 15 118/67 97 Mechanical Ventilator 35.00 10/15/16 02:35 110 16 96 35 10/15/16 02:00 112 15 128/69 94 Mechanical Ventilator 35.00 10/15/16 01:00 111 10/15/16 01:00 111 17 128/81 97 Mechanical Ventilator 35.00 10/15/16 00:45 117 16 108/70 91 Mechanical Ventilator 35.00 10/15/16 00:15 111 16 91 40 10/15/16 00:00 91 Mechanical Ventilator 35 10/15/16 00:00 99.3 126 12 115/78 90 Mechanical Ventilator 35.00 10/14/16 23:00 146 11 139/77 87 Mechanical Ventilator 35.00 10/14/16 22:11 108 16 142/79 92 Mechanical Ventilator 35.00 10/14/16 22:00 112 9 142/79 97 Mechanical Ventilator 35.00 10/14/16 21:58 111 20 94 35 10/14/16 21:00 102 15 128/69 91 Mechanical Ventilator 35.00 10/14/16 20:20 84 16 92 40 10/14/16 20:00 98.6 121 20 128/69 95 Mechanical Ventilator 35.00 10/14/16 20:00 95 Mechanical Ventilator 35 10/14/16 19:39 135/86 10/14/16 19:00 121 10/14/16 19:00 121 34 116/50 98 Mechanical Ventilator 35.00 10/14/16 18:36 111 21 94 35 10/14/16 18:00 94 21 127/65 93 Mechanical Ventilator 45.00 10/14/16 17:00 93 23 117/74 99 Mechanical Ventilator 45.00 10/14/16 16:58 119/89 10/14/16 16:14 84 16 92 40 10/14/16 16:00 85 119/89 94 Mechanical Ventilator 45.00 10/14/16 16:00 98.5 Mechanical Ventilator 45.00 10/14/16 16:00 94 Mechanical Ventilator 45 10/14/16 15:00 92 32 121/61 93 Mechanical Ventilator 45.00 10/14/16 14:35 77 16 93 45 10/14/16 14:14 127/77 10/14/16 14:00 75 5 111/92 92 Mechanical Ventilator 45.00 10/14/16 13:27 84 16 92 45 10/14/16 13:00 81 10/14/16 13:00 80 117/88 91 Mechanical Ventilator 45.00 10/14/16 12:00 98.8 Mechanical Ventilator 45.00 10/14/16 12:00 86 117/72 94 Mechanical Ventilator 45.00 10/14/16 12:00 94 Mechanical Ventilator 45 10/14/16 11:00 82 30 125/73 97 Mechanical Ventilator 45.00 10/14/16 10:55 137/77 10/14/16 10:08 61 16 93 45 10/14/16 10:00 67 15 137/77 93 Mechanical Ventilator 45.00 10/14/16 09:00 68 15 110/73 94 Mechanical Ventilator 45.00 10/14/16 08:34 58 16 93 50 10/14/16 08:00 94 Mechanical Ventilator 45 10/14/16 08:00 98.4 Mechanical Ventilator 45.00 10/14/16 08:00 64 116/75 96 Mechanical Ventilator 45.00 10/14/16 07:26 65 16 92 50 10/14/16 07:00 71 10/14/16 07:00 63 16 124/94 91 Mechanical Ventilator 45.00 10/14/16 06:52 62 115/72 Mechanical Ventilator 50.00 10/14/16 06:42 64 10 90 45 I & O 10/15/16 06:59 Intake Total 2891 ml Output Total 3125 ml Balance -234 ml General Appearance: No Apparent Distress Other (Intubated) HEENT: Other (Patient will edema) Neck: Limited Range of Motion Respiratory: Decreased Breath Sounds Rales Cardiovascular: Irregularly Irregular Capillary Refill: Less Than 3 Seconds Extremity: Pedal Edema Neurologic/Psychiatric: Other (Intubated sedated) Skin: Normal Color Warm/Dry Results Lab Laboratory Tests 10/13/16 21:28 10/14/16 04:00 10/14/16 14:21 10/15/16 04:05 Assessment/Plan Assessment/Plan Acute respiratory failure -will attempt vent weaning -change Diprivan to Precedex -Add morphine -D/C vanco and cefepime and continue Levaquin for now Hypokalemia -replace Pulmonary edema -Lasix acute renal failure -monitor Hx of severe COPD morbid obesity Clinical Quality Measures DVT/VTE Risk/Contraindication: Risk Factor Score Per Nursin RFS Level Per Nursing on Admit: 4+=Very High KEIKO VALENZUELA DO Oct 15, 2016 06:34
[2016-10-15] MEDS ORDERED: morphine INJ 4 MG/ML 1 ML (VIAL/SYRINGE) IVP PRN (06:45)
[2016-10-15] MEDS: inSUlin (REGULAR) HUMAN 1 UNIT/0.01 ML (CHARGE PER UNIT) SC SCH ×5 (06:46→21:20)
[2016-10-15] MEDS: DEXMEDETOMIDINE PRE-MIX 100 ML IV SCH ×2 (06:55→22:29)
[2016-10-15] MEDS ORDERED: HALOPERIDOL 5 MG/ML (HALDOL) AMP ONE (06:58)
[2016-10-15] MEDS ORDERED: ENOXAPARIN 40 MG/0.4 ML (LOVENOX) SYR SC SCH (08:15)
[2016-10-15] MEDS: FUROSEMIDE 40 MG/4 ML INJ (LASIX) IV SCH ×2 (08:17→21:14)
--- NOTE | 2016-10-15 08:36 | Diagnostic Imaging Report ---
INDICATION: Dyspnea, intubation. DISCUSSION: Single portable upright view of the chest was obtained, comparison 10/14/2016. Stable normal heart size. The lungs remain hyperinflated, consistent with underlying COPD. Improved aeration of the bilateral lungs with decreasing interstitial opacities. No focal consolidation. Multiple right rib fractures are again noted. No pneumothorax. Stable endotracheal tube and enteric tube. IMPRESSION: 1. COPD with improved aeration. Dictated by: Dictated on workstation # [id number]
[2016-10-15] MEDS: GABAPENTIN 300 MG (NEURONTIN) CAP PO SCH ×3 (09:06→21:14)
[2016-10-15] MEDS: MAGNESIUM OXIDE (MAG-OX)400 MG TAB PO SCH (09:06)
[2016-10-15] MEDS: ASPIRIN E.C. 81 MG (ECOTRIN) TAB PO SCH (09:06)
[2016-10-15] MEDS: DILTIAZEM 240 MG (CARDIZEM CD) CAP PO SCH (09:08)
[2016-10-15] MEDS: ATENOLOL 25 MG (TENORMIN) TAB PO SCH (09:08)
[2016-10-15] MEDS: LOSARTAN 50 MG (COZAAR) TAB PO SCH (09:08)
--- NOTE | 2016-10-15 15:16 | Progress Note-Hospitalist ---
Standard Progress Note Progress Notes/Assess & Plan Date Seen 10/15/16 Diagnosis 1. Acute respiratory kkxcojk-pmdtldgzjmc-hg cefepime, Levaquin, and vancomycin and steroids 2. Chronic respiratory failure 3. Chronic atrial fibrillation 4. Type II diabetes out of control 5. CHF most likely secondary to diastolic dysfunction 6. Morbid obesity 7. Deconditioning 8. Anemia with a drop in hemoglobin- Hemoccult stools. NG aspirin 9. Acute renal insufficiency Plan- continue ventilator support, Lasix as needed, monitor blood sugars, pulmonary and cardiac consultation, Assess & Plan/Chief Complaint The patient was successfully extubated today. He is sitting at the bedside in a chair. He is able to speak in complete sentences. He reports that the staff attempted to stand him up and he was shocked at how weak he felt. We also discussed removal of his Soriano catheter and he is in favor of that. Physical exam: He is pink and comfortable. Lungs are distant but clear. CV is regular without murmur. The abdomen is quite obese. The hands show and puffiness on the dorsum and the ankles appear to be puffy as well. Impression: Severe respiratory disease/COPD with successful extubation. Generalized weakness. Plan: PT consult and advance activity Labs Laboratory Tests 10/13/16 21:28 10/14/16 04:00 10/14/16 14:21 10/15/16 04:05 MARILOU RODAS MD Oct 15, 2016 15:16
--- NOTE | 2016-10-15 15:30 | Physical Therapy Evaluation ---
PT Evaluation-General Medical Diagnosis Admission Date Oct 13, 2016 at 23:19 Medical Diagnosis: pneumonia/ARF Onset Date: Oct 13, 2016 Therapy Diagnosis Therapy Diagnosis: debility and weakness Height/Weight Height (Feet): 5 Height (Inches): 9.00 Weight (Pounds): 280 Weight (Ounces): 4.8 Precautions Precautions/Isolations: Fall Prevention, Standard Precautions Referral Physician: Merrill Reason for Referral: Evaluation/Treatment Medical History Pertinent Medical History: Atrial Fib, COPD, DM, HTN, Macular Degenertion, Neuropathy, PVD, Smoking Additional Medical History recent stay in ARU Current History ED per EMS - Cpap, hypoxia, on 2L O2 NC at home continuous; decrease in SAO2 to 60% after ambulating to bathroom at home Reviewed History: Yes Social History Home: Single Level Current Living Status: Spouse Prior/Core FIM Prior Level of Function Functional [place] Measure 0=Not Assessed/NA 4=Minimal Assistance 1=Total Assistance 5=Supervision or Setup 2=Maximal Assistance 6=Modified [place] 3=Moderate Assistance 7=Complete [place] Bed Mobility: 6 Transfers (B,C,W/C) (FIM): 6 Gait: 6 PT Evaluation-Current Subjective Patient is sitting in recliner and agrees to PT. Patient voices frustration with his disease process. Pain Numeric Pain Scale: 0-No Pain Location: No Pain Reported Objective Patient Orientation: Normal For Age Problem Solving: Fair Attachments: Oxygen, Soriano Catheter, IV ROM/Strength ROM Lower Extremities bilateral LE WFL Strenght Lower Extremities 3/5 grossly bilateral LE in seated position with MMT Integumentary/Posture Integumentary noted increase in edema bilateral LE with redness Bowel Incontinence: No Bladder Incontinence: Soriano Cath Posture WNL Neuromuscular (Tone, Coordination, Reflexes) diminished coordination; noted bilateral hand tremors Sensory Vision: Functional Hearing: Functional Sensation Right Lower Extremit: Impaired Sensation Left Lower Extremity: Impaired Transfers Functional [place] Measure 0=Not Assessed/NA 4=Minimal Assistance 1=Total Assistance 5=Supervision or Setup 2=Maximal Assistance 6=Modified [place] 3=Moderate Assistance 7=Complete [place] Transfers (B, C, W/C) (FIM): 2 Scootin Sit to/from Stand: 2 Gait Mode of Locomotion: Walk Anticipated Mode of Locomotion: Walk Gait (FIM): 1 Distance (FIM): 1=up to 49 ft Distance: 10' Gait Level of Assist: 3 Gait Persons Needed: 2 (for safety) Gait Assistive Device: FWW Comments/Gait Description unsteady Balance Sitting Static: Normal Sitting Dynamic: Normal Standing Static: Fair Standing Dynamic: Fair Assessment/Needs 80 y.o. male, will benefit from skilled PT to address functional strength and mobility to improve cardiopulmonary function to safely return to home with spouse at maximum LOF. Patient currently wears O2 2L NC at home 21/04. Rehab Potential: Fair Post Rehab Potential-Barriers: COPD PT Halfway Goals Foam Tank Laminator Goals PT Halfway Goals Time Frame: Oct 29, 2016 Transfers (B,C,W/C) (FIM): 6 Gait (FIM): 6 Gait distance (FIM): 3=150 ft Distance: 150' Gait Level of Assist: 6 Gait Assistive Device: FWW, Cane Single Point PT Plan Problem List Problem List: Activity Tolerance, Functional Strength, Safety, Balance, Gait, Transfer Treatment/Plan Treatment Plan: Continue Plan of Care Treatment Plan: Bed Mobility, Education, Functional Activity Amanda, Functional Strength, Gait, Safety, Therapeutic Exercise, Transfers Treatment Duration: Oct 29, 2016 # of days/week 6 Visits Per Week: 10-11 Pt/Family Agrees w/Plan: Yes Safety Risks/Education Patient Education: Instructions to Caregiver, Safety Issues Teaching Recipient: Patient Teaching Methods: Discussion Response to Teaching: Verbalize Understanding Time/GCodes Time In: 1450 Time Out: 1515 Total Billed Treatment Time: 25 Total Billed Treatment 1 visit EVHigh 25 min NIKHIL LEBLANC PT Oct 15, 2016 15:30
--- NOTE | 2016-10-15 15:57 | Occupational Therapy Eval ---
OT Evaluation-General/PLF Medical Diagnosis Admission Date Oct 13, 2016 at 23:19 Medical Diagnosis: pneumonia/ARF Onset Date: Oct 13, 2016 Therapy Diagnosis Therapy Diagnosis: weakness, decreased self care skills Height/Weight Height (Feet): 5 Height (Inches): 9.00 Weight (Pounds): 280 Weight (Ounces): 4.8 Precautions Precautions/Isolations: Fall Prevention, Standard Precautions Safety Interventions: Place Restraint, Reorient-Attempt, Reorient-PRN Referral Physician: Merrill Medical History Pertinent Medical History: Atrial Fib, COPD, DM, HTN, Macular Degenertion, Neuropathy, PVD, Smoking Additional Medical History carpal tunnel, sleep apnea, high cholesterol, BPH, cataracts, basal cell carcinoma, left knee cellulitis 11/12 Reviewed History: Yes Social History Home: Single Level Current Living Status: Spouse Entry Into Home: Stairs With Railing Steps Into Home: 4 ADL-Prior Level of Function ADL PLOF Comments Pt had recent ARU stay, states since he has been home he receives assistance donning socks and occasionally pants. Uses cane for mobility. Pt states he has some difficulty with feeding secondary to tremors. Has UE wrist weights that improve feeding ability. DME/Equipment: Grab Bars, Shower, Sock Aid, Tall Toilet DME/Equipment Comments shoe funnel OT Current Status Subjective Pt sitting in chair with spouse present. Agrees to therapy evaluation. Mental Status/Objective Patient Orientation: Person, Place, Situation Attachments: Soriano Catheter, IV, Oxygen Current Hand Dominance: Right Upper Extremity ROM Grossly WFL Upper Extremity Coordination Decreased Upper Extremity Sensation Pt reports numbness/tingling in hands and feet Upper Extremity Strength Grossly 3/5 Edema: Pt has edema in bilateral UE ADL-Treatment ADL-Current Pt participated in UE assessment while seated. Pt states he recently got up to chair, states he had great difficulty with task. Pt drinks from cup with straw without assistance. Will assess further ADLs as pt able to tolerate. Education provided regarding role of OT and plan of care. Pt states understanding and agrees. Pt sitting in chair with needs met and spouse present after session. Functional [place] Measure 0=Not Assessed/NA 4=Minimal Assistance 1=Total Assistance 5=Supervision or Setup 2=Maximal Assistance 6=Modified [place] 3=Moderate Assistance 7=Complete IndependenceIRFPAI Quality Coding Scale 6 Independent with activity with or without an assistive device 5 Patient requires set up or clean up by helper. Patient completes activity by themselves 4 Supervision or touching assist (CGA). [place] provide cues , steadying assist 3 The helper provides less than half the effort to complete the activity 2 The helper provides more than half the effort to complete the activity 1 Dependent. The helper does all the effort to complete an activity 7 Patient refused to complete or attempt activity 9 The patient did not perform the activity before the current illness or injury 88 Not attempted due to Medical conditions or safety concerns Education OT Patient Education: Rehab process Teaching Recipient: Patient Teaching Methods: Discussion Response to Teaching: Verbalize Understanding OT Short Term Goals Short Term Goals 1=Demonstrate adherence to instructed precautions during ADL tasks. 2=Patient will verbalize/demonstrate understanding of assistive devices/ modifications for ADL. 3=Patient will improve strength/tolerance for activity to enable patient to perform ADL's. OT Head Librarian Goals Head Librarian Goals Time Frame: Oct 29, 2016 Eating (FIM): 6 Grooming(FIM): 6 Upper Body Dressing(FIM): 5 Lower Body Dressing(FIM): 4 Toileting(FIM): 5 Toilet/Commode Transfer(FIM): 5 Additional Goals: 1-Demonstrate ADL Tasks, 2-Verbalize Understanding, 3- ImproveStrength/Amanda 1=Demonstrate adherence to instructed precautions during ADL tasks. 2=Patient will verbalize/demonstrate understanding of assistive devices/ modifications for ADL. 3=Patient will improve strength/tolerance for activity to enable patient to perform ADL's. OT Education/Plan Problem List/Assessment Assessment: Decreased Activ Tolerance, Decreased UE Strength, Dependent Transfers, Impaired Coordination, Impaired Funct Balance, Impaired Self-Care Skills Pt demonstrates decreased activity tolerance, mobility, strength, and ADL functioning. Pt to benefit from skilled OT intervention for ADL training, transfers, strengthening, adaptive equipment training as needed and home safety education to increase level of independence and allow safe discharge. Discharge Recommendations Plan/Recommendations: Continue POC Treatment Plan/Plan of Care Treatment,Training & Education: Yes Patient would benefit from OT for education, treatment and training to promote independence in ADL's, mobility, safety and/or upper extremity function for ADL' s. Plan of Care: ADL Retraining, Functional Mobility, UE Funct Exercise/Act Treatment Duration: Oct 29, 2016 # of days/week 5 Visits Per Week: 5 Agreement: Yes Rehab Potential: Fair Time/GCodes Start Time: 15:30 Stop Time: 15:45 Total Time Billed (hr/min): 15 Billed Treatment Time 1 visit, [facility](15minutes) AROLDO HORTON OT Oct 15, 2016 15:57
[2016-10-15] MEDS: NIACIN 500 MG TABLET PO SCH (17:23)
[2016-10-15] MEDS: ALFUZOSIN HCL 10 MG TAB (UROXATRAL) PO SCH (21:14)
[2016-10-15] MEDS: LEVOFLOXACIN 750 MG/150 ML D5W (PRE-MIX) IV SCH (22:09)
[2016-10-16] VITALS (14 sets, daily range): BP systolic 87–132; BP diastolic 53–83
[2016-10-16] MEDS: RT-ALBUTEROL/IPRATROPIUM 3 ML (DUONEB) VIAL INH SCH ×5 (02:24→19:05)
[2016-10-16 04:41] LABS: BASOPHILS % (AUTO) 0 % (0-10); EOSINOPHILS # (AUTO) 0.1 10^3/uL (0.0-0.3); EOSINOPHILS % (AUTO) 1 % (0-10); LYMPHOCYTES # (AUTO) 1.2 X 10^3 (1.0-4.0); LYMPHOCYTES % (AUTO) 12 % (12-44); MEAN CORPUSCULAR HEMOGLOBIN 32 PG (25-34); MEAN CORPUSCULAR HGB CONC 34 G/DL (32-36); MEAN CORPUSCULAR VOLUME 93 FL (80-99); MEAN PLATELET VOLUME 10.5 FL (7.4-10.4); MONOCYTES # (AUTO) 1.5 X 10^3 (0.0-1.0); MONOCYTES % (AUTO) 15 % (0-12); NEUTROPHILS # (AUTO) 7.2 X 10^3 (1.8-7.8); NEUTROPHILS % (AUTO) 72 % (42-75); PLATELET COUNT 101 10^3/uL (130-400); RED BLOOD COUNT 3.42 10^6/uL (4.35-5.85); RED CELL DISTRIBUTION WIDTH 14.4 % (10.0-14.5)
[2016-10-16 05:02] LABS: ALBUMIN 2.7 G/DL (3.2-4.5); BILIRUBIN,TOTAL 1.3 MG/DL (0.1-1.0); CALCIUM 8.6 MG/DL (8.5-10.1); CREATININE SERUM 1.5 MG/DL (0.60-1.30); MAGNESIUM 1.9 MG/DL (1.8-2.4); PHOSPHORUS 2.9 MG/DL (2.3-4.7); POTASSIUM 3.3 MMOL/L (3.6-5.0); TOTAL PROTEIN 4.9 G/DL (6.4-8.2)
[2016-10-16] MEDS: NS IV 1000 ML 1,000 ML IV SCH (05:50)
[2016-10-16] MEDS: MAGNESIUM 1 GM/100 ML IVPB 100 ML IV SCH (05:53)
[2016-10-16] MEDS: KCL 20 MEQ TAB (K-DUR) PO SCH ×3 (05:53→17:27)
[2016-10-16] MEDS: POTASSIUM CL 10MEQ/50ML IVPB 50 ML IV SCH (05:53)
[2016-10-16] MEDS: inSUlin (REGULAR) HUMAN 1 UNIT/0.01 ML (CHARGE PER UNIT) SC SCH ×4 (06:00→21:22)
--- NOTE | 2016-10-16 06:22 | Pulmonary Progress Note ---
Subjective Subjective/Events-last exam Pt is doing well off vent no complications noted. Exam Exam Vital Signs Date Time Temp Pulse Resp B/P Pulse Ox O2 Delivery O2 Flow Rate FiO2 10/16/16 06:00 89 27 116/63 97 High Flow NC 1.50 10/16/16 05:00 92 21 110/59 92 High Flow NC 1.50 10/16/16 04:00 98.9 10/16/16 04:00 94 25 116/64 90 High Flow NC 1.50 10/16/16 04:00 95 Nasal Cannula 1.50 10/16/16 03:00 87 22 88/72 91 High Flow NC 1.50 10/16/16 02:24 94 Nasal Cannula 1.50 10/16/16 02:00 102 27 116/73 92 High Flow NC 1.50 10/16/16 01:00 89 18 102/53 93 High Flow NC 1.50 10/16/16 01:00 89 10/16/16 00:00 90 25 105/56 91 High Flow NC 1.50 10/16/16 00:00 95 Nasal Cannula 1.50 10/16/16 00:00 99.0 10/15/16 23:00 86 28 110/60 92 High Flow NC 1.50 10/15/16 22:31 94 Nasal Cannula 1.50 10/15/16 22:00 85 26 130/65 94 High Flow NC 1.50 10/15/16 21:00 95 17 121/72 93 High Flow NC 1.50 10/15/16 20:00 99.9 96 23 129/91 92 High Flow NC 1.50 10/15/16 20:00 95 Nasal Cannula 1.50 10/15/16 19:00 98 12 114/65 94 High Flow NC 1.50 10/15/16 19:00 98 10/15/16 18:39 94 Nasal Cannula 1.50 10/15/16 18:00 96 21 133/82 98 High Flow NC 1.50 10/15/16 17:00 93 18 153/92 94 High Flow NC 4.00 10/15/16 16:36 94 High Flow NC 4.00 10/15/16 16:36 97.9 10/15/16 16:00 96 20 132/75 93 High Flow NC 4.00 10/15/16 15:00 93 11 123/69 93 High Flow NC 4.00 10/15/16 14:00 83 13 136/63 100 High Flow NC 4.00 10/15/16 13:52 95 Nasal Cannula 4.00 10/15/16 13:00 94 25 112/67 96 High Flow NC 4.00 10/15/16 13:00 98 10/15/16 12:00 110 17 118/62 92 High Flow NC 4.00 10/15/16 11:54 98.5 10/15/16 11:54 94 High Flow NC 4.00 10/15/16 11:00 134 18 87/71 92 High Flow NC 4.00 10/15/16 10:20 94 Nasal Cannula 4.00 10/15/16 10:00 116 29 140/83 95 High Flow NC 4.00 10/15/16 09:00 115 8 154/101 94 High Flow NC 4.00 10/15/16 08:26 99.8 94 High Flow NC 4.00 10/15/16 08:25 94 High Flow NC 4.00 10/15/16 08:00 110 18 149/107 94 Mechanical Ventilator 30.00 10/15/16 07:10 95 Nasal Cannula 4.00 10/15/16 07:00 133 16 152/83 98 Mechanical Ventilator 30.00 10/15/16 07:00 122 10/15/16 06:55 120 12 112/73 100 Mechanical Ventilator 30.00 I & O 10/16/16 06:59 Intake Total 2200 ml Output Total 2825 ml Balance -625 ml General Appearance: No Apparent Distress HEENT: Other (Patient will edema) Neck: Limited Range of Motion Respiratory: Decreased Breath Sounds Rales Cardiovascular: Irregularly Irregular Capillary Refill: Less Than 3 Seconds Extremity: Pedal Edema Neurologic/Psychiatric: Other (Intubated sedated) Skin: Normal Color Warm/Dry Results Lab Laboratory Tests 10/14/16 14:21 10/15/16 04:05 10/16/16 04:18 Assessment/Plan Assessment/Plan Acute respiratory failure --Pt is doing well off vent -Levaquin for now Pulmonary edema -Lasix acute renal failure -monitor Hx of severe COPD -Continue SVNs morbid obesity Deconditioning -consult PT/OT transfer to [facility] Clinical Quality Measures DVT/VTE Risk/Contraindication: Risk Factor Score Per Nursin RFS Level Per Nursing on Admit: 4+=Very High KEIKO VALENZUELA DO Oct 16, 2016 06:22
[2016-10-16] MEDS ORDERED: ENOXAPARIN 40 MG/0.4 ML (LOVENOX) SYR SC SCH (08:00)
[2016-10-16] MEDS: MAGNESIUM OXIDE (MAG-OX)400 MG TAB PO SCH (08:28)
[2016-10-16] MEDS: ATENOLOL 25 MG (TENORMIN) TAB PO SCH (08:28)
[2016-10-16] MEDS: GABAPENTIN 300 MG (NEURONTIN) CAP PO SCH ×3 (08:28→20:29)
[2016-10-16] MEDS: DILTIAZEM 240 MG (CARDIZEM CD) CAP PO SCH (08:28)
[2016-10-16] MEDS: LOSARTAN 50 MG (COZAAR) TAB PO SCH (08:28)
[2016-10-16] MEDS: FUROSEMIDE 40 MG/4 ML INJ (LASIX) IV SCH ×2 (08:28→20:28)
[2016-10-16] MEDS: ASPIRIN E.C. 81 MG (ECOTRIN) TAB PO SCH (08:30)
--- NOTE | 2016-10-16 08:35 | Diagnostic Imaging Report ---
INDICATION: Respiratory failure. EXAMINATION: Portable chest at 5:19 AM. FINDINGS: The heart size and pulmonary vascularity are normal. The lungs are clear. There are no effusions or pneumothoraces. There has been interval removal of the ET tube and NG tube since the previous day. The right posterior thoracic rib fractures are again noted. IMPRESSION: Interval removal of the support tubes. No acute abnormalities are seen in the chest. Dictated by: Dictated on workstation # [id number]
--- NOTE | 2016-10-16 09:39 | Physical Therapy Daily Note ---
PT Daily Note-Current Subjective Patient in recliner pre tx, agrees to PT reluctantly, patient is very tired but he has to use the commode. Pain Numeric Pain Scale: 0-No Pain Appearance Patient in recliner post tx, has nurse call, phone, tray, all needs met. Mental Status Patient Orientation: Normal For Age Attachments: Oxygen Transfers Functional [place] Measure 0=Not Assessed/NA 4=Minimal Assistance 1=Total Assistance 5=Supervision or Setup 2=Maximal Assistance 6=Modified [place] 3=Moderate Assistance 7=Complete IndependenceIRFPAI Quality Coding Scale 6 Independent with activity with or without an assistive device 5 Patient requires set up or clean up by helper. Patient completes activity by themselves 4 Supervision or touching assist (CGA). [place] provide cues , steadying assist 3 The helper provides less than half the effort to complete the activity 2 The helper provides more than half the effort to complete the activity 1 Dependent. The helper does all the effort to complete an activity 7 Patient refused to complete or attempt activity 9 The patient did not perform the activity before the current illness or injury 88 Not attempted due to Medical conditions or safety concerns Transfers (B, C, W/C) (FIM): 3 Sit to/from Stand: 3 Patient performed sit to stand with mod assist the first time but with min assist the second time, going back to the recliner. Patient was transferred to the commode and back. His O2 dropped to mid 80's during the transfer but came back up to 90 quickly. He was very SOB with any activity. Gait Training Gait (FIM): 1 Distance: 5' Gait Level of Assist: 4 (CGA) Gait Persons Needed: 1 Gait Assistive Device: FWW Treatments transfers, patient was toileted, ambulation Assessment Current Status: Poor Progress no changes in mobility, patient very SOB and O2 drops with activity PT Environmental Engineering Technician Goals Snf Goals PT Snf Goals Time Frame: Oct 29, 2016 Transfers (B,C,W/C) (FIM): 6 Gait (FIM): 6 Gait distance (FIM): 3=150 ft Distance: 150' Gait Level of Assist: 6 Gait Assistive Device: FWW, Cane Single Point PT Plan Problem List Problem List: Activity Tolerance, Functional Strength, Safety, Balance, Gait, Transfer, Bed Mobility Treatment/Plan Treatment Plan: Continue Plan of Care Treatment Plan: Bed Mobility, Education, Functional Activity Amanda, Functional Strength, Gait, Safety, Therapeutic Exercise, Transfers Treatment Duration: Oct 29, 2016 Visits Per Week: 10-11 Safety Risks/Education Patient Education: Gait Training, Transfer Techniques, Safety Issues Teaching Recipient: Patient Teaching Methods: Demonstration, Discussion Response to Teaching: Reinforcement Needed Time/GCodes Time In: 907 Time Out: 931 Total Billed Treatment Time: 24 Total Billed Treatment 1 visit FA 24 min JOHN MAYO PT Oct 16, 2016 09:39
[2016-10-16] MEDS ORDERED: TROUGH ORDER-PHARMACY XX NR (10:00)
--- NOTE | 2016-10-16 10:37 | Consultation-Cardiology ---
HPI-Cardiology Cardiology Consultation Date of Consultation 10/16/16 Date of Admission Indication: dyspnea, CHF HPI Patient is a 80 y/o gentleman with history of severe COPD, diastolic dysfunction , chronic afib, with hospitalization in August 2016 for respiratory failure and pneumonia. Presented to the ER on 10/13/16 with complaints of increased dyspnea. Patient is maintained on O2 at home. Currently sitting up in chair, continues to complain of dyspnea. Denies any CP, dizziness,lightheadedness, or syncope. Complains of chronic peripheral edema. Patient was seen and evaluated with Mayi, he is a 80-year-old gentleman with history of severe COPD, history of left ventricular diastolic dysfunction and chronic atrial fibrillation, hospitalized for pneumonia recently. Was in his usual state of health started having sudden onset of shortness of breath, increasing dyspnea on exertion, admitted to the hospital intubated, patient was extubated and we were called for evaluation for fluid overload possible decompensated heart failure. He denied any cough or sputum. Has been having worsening pedal edema, having significant dyspnea with minimal exertion Home Medications & Allergies Allergies: Coded Allergies: sulfamethoxazole (Verified Allergy, Mild, RASH, 10/31/15) trimethoprim (Verified Allergy, Mild, RASH, 10/31/15) Home Medication List Reviewed: Yes [id number] Hx Patient Social History Marital Status: Alcohol Use: Denies Use Recreational Drug Use: No Smoking Status: Former Smoker Former smoker/When Quit: Apr 24, 2005 Type Used: Cigarettes Recent Foreign Travel: No Recent Infectious Disease Expo: No Recent Hopitalizations: Yes (Pneumonia 08/2016) Physical Abuse Screen: No Sexual Abuse: No Immunizations Up To Date Tetanus Booster (TDap): Less than 5yrs Date of Pneumonia Vaccine: Aug 28, 2016 Date of Influenza Vaccine: Aug 28, 2016 Past Medical History Afib, COPD, diastolic dysfunction, DM, HTN Family Medical History Significant Family History: Cancer Family History: COPD 19 FATHER Colon cancer 19 MOTHER Diabetes mellitus G8 SISTER Drug abuse G8 SISTER Lung cancer 19 FATHER Polio G8 BROTHER Sarcoidosis G8 BROTHER Constitutional: No chills, No diaphoresis, No dizziness, No fever, malaise weakness EENTM: No blurred vision, No double vision, No epistaxis, No nose pain, No throat pain, No vision loss Respiratory: cough dyspnea on exertionNo orthopnea, short of breath Cardiovascular: No chest pain, edemaNo palpitations, No syncope, vascular heart diseas Gastrointestinal: No abdominal pain, No constipation, No diarrhea Genitourinary: No dysuria, No frequency Musculoskeletal: No back pain Skin: No lesions, No rash Psychiatric/Neurological: Denies Anxiety, Denies Depressed Reviewed Test Results Reviewed Test Results Lab Laboratory Tests 10/15/16 11:59: Glucometer 207H 10/15/16 17:29: Glucometer 178H 10/15/16 21:17: Glucometer 217H 10/16/16 04:18: Alanine Aminotransferase (ALT/SGPT) 17, Albumin 2.7L, Alkaline Phosphatase 43, Anion Gap 10, Aspartate Amino Transf (AST/SGOT) 16, BUN/Creatinine Ratio 15, Basophils # (Auto) 0.0, Basophils (%) (Auto) 0, Blood Urea Nitrogen 23H, Calcium Level 8.6, Carbon Dioxide Level 25, Chloride Level 101, Creatinine 1.50H , Eosinophils # (Auto) 0.1, Eosinophils (%) (Auto) 1, Estimat Glomerular Filtration Rate 45, Glucose Level 147H, Hematocrit 32L, Hemoglobin 10.9L, Lymphocytes # (Auto) 1.2, Lymphocytes (%) (Auto) 12, Magnesium Level 1.9, Mean Corpuscular Hemoglobin 32, Mean Corpuscular Hemoglobin Concent 34, Mean Corpuscular Volume 93, Mean Platelet Volume 10.5H, Monocytes # (Auto) 1.5H, Monocytes (%) (Auto) 15H, Neutrophils # (Auto) 7.2, Neutrophils (%) (Auto) 72, Phosphorus Level 2.9, Platelet Count 101L, Potassium Level 3.3L, Red Blood Count 3.42L, Red Cell Distribution Width 14.4, Sodium Level 136, Total Bilirubin 1.3H, Total Protein 4.9L, White Blood Count 10.0 10/16/16 09:58: Vancomycin Level Trough 6.4L Microbiology 10/13/16 Blood Culture - Preliminary, Resulted No growth 10/14/16 Gram Stain - Final, Resulted 10/14/16 Sputum Culture - Preliminary, Resulted Usual/normal [place] isolated. ECG Impression ECG Initial ECG Rhythm: A Fib/Flutter Physical Exam Vital Signs Vital Sign - Last 12Hours 10/13/16 10/13/16 10/13/16 21:18 22:30 23:10 Temp 97.9 Pulse 111 Resp 45 B/P 153/98 Pulse Ox 94 O2 Delivery NIV/CPAP O2 Flow Rate 70 FiO2 100 Capillary Refill : Less Than 3 Seconds General Appearance: No Apparent Distress WD/WN HEENT: PERRL/EOMI Normal ENT Inspection Neck: Non Tender Supple Respiratory: No Accessory Muscle Use No Respiratory Distress Decreased Breath Sounds Rhonci Cardiovascular: No Gallop No JVD No Murmur Irregularly Irregular Tachycardia Gastrointestinal: Normal Bowel Sounds Non Tender Soft Rectal: Deferred Back: No CVA Tenderness Extremity: Non Tender No Calf Tenderness Pedal Edema Neurologic/Psychiatric: Alert Oriented x3 gate agent II-XII Norm as Tested A/P-Cardiology Admission Diagnosis Respiratory failure Permanent atrial fibrillation COPD HTN Assessment/Plan Acute respiratory failure- patient is extubated and up in chair. Slowly improving. was hospitalized in Aug 2016 for respiratory failure and pneumonia. patient is receiving IV Lasix and antibiotics. I'll continue with aggressive diuresis, noted to have a elevated BNP, I will evaluate echocardiogram. Permanent atrial fibrillation, rate slightly tachycardic. [id number] score is 4, yearly risk of stroke without oral anticoagulation is 4 percent. Maintained on Coumadin. Recommended INR is 2-3. Continue to monitor telemetry. Severe COPD, VIPIN- followed by Dr. Herring. Patient uses CPAP at home. Hypertension. Controlled. Continue to monitor BP/HR Diastolic dysfunction- most recent 2D Echo 11/14 revealed EF 60%, diastolic dysfunction. BNP elevated. Continue to diurese. I will reevaluate 2D Echo. Questionable coronary artery disease, patient has multiple risk factors, has been refusing to have a stress test. Peripheral vascular disease, patient had RANULFO done in February 2015, it was 0.54 on the right, 0.77 on the left, patient had angiogram with complex intervention with angioplasty to the right anterior tibial artery, the right peroneal artery with good results with Dr. Gutiérrez. 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 Patient was staged for angiogram and intervention of the left leg then Dr. Gutiérrez has left. Most recent RANULFO done October 2015 within normal limits. Continue to monitor. Chronic venous insufficiency, seen by Dr. Castro in [place], status post ablation by Dr. Castro on the right side. Acute on chronic renal insufficiency- continue to monitor renal function. Hyperlipidemia, controlled. Continue to monitor Diabetes mellitus. Followed and managed by primary care physician. Continue to monitor, no changes. Diabetic neuropathy. Mild bilateral carotid stenosis, last ultrasound was done in March 2016. Continue to monitor. Thank you for allowing us to participate in the management of Mr. Bourne. This is Mayi Ryan PA-C as a scribe for Dr. Niño. This is Dr. Niño, I have seen and evaluated the patient with Mayi, patient is extubated, still having dyspnea with minimal exertion, has fluid overload in addition to exacerbation of COPD. I will reevaluate 2-D echocardiogram, continue an antibiotic and on diuretics. Monitor intake and output closely. Patient is at an increased risk of coronary artery disease, has been refusing stress test in the past. He might require cardiac catheterization, renal function appeared to be slightly worse after aggressive diuretics. He is maintained on Lasix 40 mg IV twice a day, still having significant edema. Lungs exam showed diminished air entry at the bases with bilateral rhonchi, distant heart sound. I reviewed the current note, I agree with a scribe, did few minor modification, I used Italic Font Clinical Quality Measures DVT/VTE Risk/Contraindication: Risk Factor Score Per Nursin RFS Level Per Nursing on Admit: 4+=Very High MAYI SHARPE Oct 16, 2016 10:37 KEELEY NIÑO MD Oct 16, 2016 13:03
--- NOTE | 2016-10-16 10:51 | Progress Note-Hospitalist ---
Progress Note HPI/CC on Admission This is a 80-year-old white male just recently discharged after a 3 week hospitalization for respiratory failure and diabetes out of control. He had been doing fairly well but had a being fluctuating weight at home. He is been followed closely by home health. denies any increased pedal edema. Evidently he got up in the middle of the night and went to the bathroom to get a drink of water. He became acutely short of breath and unable to catch his breath despite using his home oxygen. He presented to the emergency room in hypercapnic respiratory failure and was intubated. This morning he is still intubated with improved blood gases. Chest x-ray shows increased interstitial edema. Progress Notes/Assess & Plan Date Seen 10/16/16 Diagonsis/Assessment & Plan Chart Review: No fever Vitals stable Extubated without difficulty Conferred with Dr. 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 Patient Interview: Pt states that Dr. Niño is his [place]. Pt has significant cough. Physical exam was stable. Dr. Mortensen explains to pt why he may have increased fluid on lungs. Pt states that he has not seen Dr. Niño today. Pt states that PCP is Dr. Gomez. Pt states that he thinks he saw Dr. Gomez after his previous hospitalization. Pt has home O2 but only recently started using it regularly. Pt states that he has significant SOB and desatting when he walks. Pt states that he has not had a BM since he came to the ICU. Pt ate oatmeal and sausage today. AFVSS, Chronically ill, pleasant Irr Irr, CTAB decreased BS all [place] Trace edema Laboratory Tests 10/16/16 04:18 Assessment: 1. VDRF s/p extubation due to acute on chronic diastolic dysfunction with pulmonary edema s/p with possible atypical pneumonia that is requiring Levaquin. 2. Acute COPD exacerbation 3. Chronic atrial fibrillation on Coumadin 4. Type II diabetes mellitus insulin-requiring and monitor fingerstick blood sugars. 5. Mild hypokalemia 6. Debility 7. Edema 8. ARF Plan: Consult Cardiology Move to 4th floor Replace potassium Palliative care consultation Scribed by Shalom Alexandra under the direct supervision of Dr. Mortensen. SASCHA MORTENSEN DO Oct 16, 2016 10:51
--- NOTE | 2016-10-16 12:54 | Occupational Ther Daily Note ---
OT Current Status-Daily Note Subjective Pt seen in room in ICU, up on BSC, agreeable to OT. Pt c/o feeling short of air. O2 sats 88-89%. Nsg notified Appearance Alert, cooperative Mental Status/Objective Functional [place] Measure 0=Not Assessed/NA 4=Minimal Assistance 1=Total Assistance 5=Supervision or Setup 2=Maximal Assistance 6=Modified [place] 3=Moderate Assistance 7=Complete [place] ADL-Treatment Nursing adjusted O2 and sats came up to 90-92% while at rest. Pt was up on BSC and ready to go back to chair. Pt needed mod assist sit to stand and mod assist transfer back to recliner, using FWW. Nursing noted that his transfer was much better with FWW than without and pt reluctantly agreed. Cues for hand placement and for not sitting too soon. He was unable to adequately control his descent to the chair. Pt left up in recliner, call light present, O2 in place, aida needs met. Toilet/Commode Transfer (FIM): 3 Education OT Patient Education: Correct positioning, Purpose of tx/functional activities , Safety issues, Transfer techniques Teaching Recipient: Patient Teaching Methods: Discussion Response to Teaching: Return Demonstration, Reinforcement Needed OT Short Term Goals Short Term Goals 1=Demonstrate adherence to instructed precautions during ADL tasks. 2=Patient will verbalize/demonstrate understanding of assistive devices/ modifications for ADL. 3=Patient will improve strength/tolerance for activity to enable patient to perform ADL's. OT Reel Operator Goals Long-Term Goals Time Frame: Oct 29, 2016 Eating (FIM): 6 Grooming(FIM): 6 Upper Body Dressing(FIM): 5 Lower Body Dressing(FIM): 4 Toileting(FIM): 5 Toilet/Commode Transfer(FIM): 5 Additional Goals: 1-Demonstrate ADL Tasks, 2-Verbalize Understanding, 3- ImproveStrength/Amanda 1=Demonstrate adherence to instructed precautions during ADL tasks. 2=Patient will verbalize/demonstrate understanding of assistive devices/ modifications for ADL. 3=Patient will improve strength/tolerance for activity to enable patient to perform ADL's. OT Education/Plan Problem List/Assessment Pt demonstrates decreased activity tolerance, mobility, strength, and ADL functioning. Pt to benefit from skilled OT intervention for ADL training, transfers, strengthening, adaptive equipment training as needed and home safety education to increase level of independence and allow safe discharge. Discharge Recommendations Plan/Recommendations: Continue POC Treatment Plan/Plan of Care Patient would benefit from OT for education, treatment and training to promote independence in ADL's, mobility, safety and/or upper extremity function for ADL' s. Plan of Care: ADL Retraining, Functional Mobility, UE Funct Exercise/Act Treatment Duration: Oct 29, 2016 Visits Per Week: 5 Agreement: Yes Rehab Potential: Fair Time/GCodes Start Time: 10:58 Stop Time: 11:12 Total Time Billed (hr/min): 14 Billed Treatment Time visit, 14 minutes ADL MAGDALENA OSBORN OT Oct 16, 2016 12:54
--- NOTE | 2016-10-16 15:39 | Physical Therapy Daily Note ---
PT Daily Note-Current Subjective Patient in recliner pre tx, has come downstairs to the medical floor to 409. He agrees to PT. Pain Numeric Pain Scale: 0-No Pain Appearance Patient in recliner post tx with legs elevated and on a pillow, son in room, has nurse call, phone, tray, all needs met. Mental Status Patient Orientation: Normal For Age Attachments: Oxygen Transfers Functional [place] Measure 0=Not Assessed/NA 4=Minimal Assistance 1=Total Assistance 5=Supervision or Setup 2=Maximal Assistance 6=Modified [place] 3=Moderate Assistance 7=Complete IndependenceIRFPAI Quality Coding Scale 6 Independent with activity with or without an assistive device 5 Patient requires set up or clean up by helper. Patient completes activity by themselves 4 Supervision or touching assist (CGA). [place] provide cues , steadying assist 3 The helper provides less than half the effort to complete the activity 2 The helper provides more than half the effort to complete the activity 1 Dependent. The helper does all the effort to complete an activity 7 Patient refused to complete or attempt activity 9 The patient did not perform the activity before the current illness or injury 88 Not attempted due to Medical conditions or safety concerns Transfers (B, C, W/C) (FIM): 4 Supine to/from Sit: 4 Patient needed min assist to stand, he thought he could stand on his own but he was not able to. He stood by the chair for about 10 min before fatigue and needing to sit down. He did also get SOB. Exercises Seated Therapy Exercises: Ankle pumps, Long arc quads, Hip flexion Seated Reps: 20 Treatments transfers, standing, functional strengthening Assessment Current Status: Fair Progress increasing endurance, he may be able to ambulate a short distance tomorrow PT [facility] Goals School Operations Manager Goals PT School Operations Manager Goals Time Frame: Oct 29, 2016 Transfers (B,C,W/C) (FIM): 6 Gait (FIM): 6 Gait distance (FIM): 3=150 ft Distance: 150' Gait Level of Assist: 6 Gait Assistive Device: FWW, Cane Single Point PT Plan Problem List Problem List: Activity Tolerance, Functional Strength, Safety, Balance, Gait, Transfer, Bed Mobility Treatment/Plan Treatment Plan: Continue Plan of Care Treatment Plan: Bed Mobility, Education, Functional Activity Amanda, Functional Strength, Gait, Safety, Therapeutic Exercise, Transfers Treatment Duration: Oct 29, 2016 Visits Per Week: 10-11 Safety Risks/Education Patient Education: Transfer Techniques, Correct Positioning, Safety Issues Teaching Recipient: Patient Teaching Methods: Demonstration, Discussion Response to Teaching: Reinforcement Needed Time/GCodes Time In: 1405 Time Out: 1420 Total Billed Treatment Time: 15 Total Billed Treatment 1 visit FA 15 min JOHN MAYO PT Oct 16, 2016 15:39
[2016-10-16] MEDS: NIACIN 500 MG TABLET PO SCH (18:45)
[2016-10-16] MEDS: CATHETER FLUSH 10 ML SYR IV PRN (20:28)
[2016-10-16] MEDS: ALFUZOSIN HCL 10 MG TAB (UROXATRAL) PO SCH (20:29)
[2016-10-16] MEDS: LEVOFLOXACIN 750 MG/150 ML D5W (PRE-MIX) IV SCH (21:23)
[2016-10-17] VITALS: BP 129/69
[2016-10-17 04:00] VITALS: BP 131/76
[2016-10-17 06:00] LABS: BASOPHILS % (AUTO) 0 % (0-10); EOSINOPHILS # (AUTO) 0.2 10^3/uL (0.0-0.3); EOSINOPHILS % (AUTO) 2 % (0-10); LYMPHOCYTES % (AUTO) 11 % (12-44); MEAN CORPUSCULAR HEMOGLOBIN 32 PG (25-34); MEAN CORPUSCULAR HGB CONC 35 G/DL (32-36); MEAN CORPUSCULAR VOLUME 94 FL (80-99); MEAN PLATELET VOLUME 10.6 FL (7.4-10.4); MONOCYTES # (AUTO) 1.3 X 10^3 (0.0-1.0); MONOCYTES % (AUTO) 14 % (0-12); NEUTROPHILS # (AUTO) 6.9 X 10^3 (1.8-7.8); NEUTROPHILS % (AUTO) 74 % (42-75); PLATELET COUNT 117 10^3/uL (130-400); RED BLOOD COUNT 3.41 10^6/uL (4.35-5.85); RED CELL DISTRIBUTION WIDTH 14.3 % (10.0-14.5); WHITE BLOOD COUNT 9.4 10^3/uL (4.3-11.0)
[2016-10-17] MEDS: inSUlin (REGULAR) HUMAN 1 UNIT/0.01 ML (CHARGE PER UNIT) SC SCH ×4 (06:00→21:10)
[2016-10-17 06:27] LABS: ALBUMIN 2.8 G/DL (3.2-4.5); BILIRUBIN,TOTAL 0.8 MG/DL (0.1-1.0); CALCIUM 9.1 MG/DL (8.5-10.1); CREATININE SERUM 1.72 MG/DL (0.60-1.30); MAGNESIUM 2.1 MG/DL (1.8-2.4); TOTAL PROTEIN 5.1 G/DL (6.4-8.2)
[2016-10-17] MEDS: KCL 20 MEQ TAB (K-DUR) PO SCH ×2 (06:42→17:13)
--- NOTE | 2016-10-17 07:22 | Pulmonary Progress Note ---
Subjective Subjective/Events-last exam No complications noted. Exam Exam Vital Signs Date Time Temp Pulse Resp B/P Pulse Ox O2 Delivery O2 Flow Rate FiO2 10/17/16 04:00 97.4 84 20 131/76 94 High Flow NC 3.00 10/17/16 01:18 81 10/17/16 00:00 98.5 78 20 129/69 96 High Flow NC 3.00 10/16/16 20:00 99.5 78 20 129/62 95 High Flow NC 1.50 10/16/16 20:00 Nasal Cannula 3.00 10/16/16 19:05 94 3.00 10/16/16 19:00 81 10/16/16 17:27 99.4 10/16/16 16:00 99.4 70 20 100/58 95 High Flow NC 1.50 10/16/16 14:45 96 Nasal Cannula 3.00 10/16/16 13:00 Nasal Cannula 3.00 10/16/16 12:45 99.1 10/16/16 12:00 99.1 10/16/16 12:00 97.1 103 20 132/83 94 High Flow NC 1.50 10/16/16 12:00 96 Nasal Cannula 1.50 10/16/16 10:00 112 23 126/72 88 High Flow NC 1.50 10/16/16 09:00 111 18 131/62 90 High Flow NC 1.50 10/16/16 08:00 96 Nasal Cannula 1.50 10/16/16 08:00 91 24 87/63 98 High Flow NC 1.50 10/16/16 08:00 97.2 96 High Flow NC 1.50 10/16/16 07:40 95 Nasal Cannula 1.50 I & O 10/17/16 07:00 Intake Total 2140 ml Output Total 1600 ml Balance 540 ml General Appearance: No Apparent Distress WD/WN HEENT: PERRL/EOMI Normal ENT Inspection Neck: Non Tender Supple Respiratory: No Accessory Muscle Use No Respiratory Distress Decreased Breath Sounds Rhonci Cardiovascular: No Gallop No JVD No Murmur Irregularly Irregular Tachycardia Capillary Refill: Less Than 3 Seconds Extremity: Non Tender No Calf Tenderness Pedal Edema Neurologic/Psychiatric: Alert Oriented x3 wire bender II-XII Norm as Tested Skin: Normal Color Warm/Dry Results Lab Laboratory Tests 10/16/16 04:18 10/17/16 05:06 Assessment/Plan Assessment/Plan Acute respiratory failure s/p vent -Levaquin for now Pulmonary edema -Lasix acute renal failure -monitor Hx of severe COPD -Continue SVNs morbid obesity with VIPIN -Pt uses home BiPAP with oxygen -restart hospital BiPAP Deconditioning obesity -SW for possible ECF vs hospice -Dietary for education -consult PT/OT Clinical Quality Measures DVT/VTE Risk/Contraindication: Risk Factor Score Per Nursin RFS Level Per Nursing on Admit: 4+=Very High KEIKO VALENZUELA DO Oct 17, 2016 07:22
--- NOTE | 2016-10-17 07:42 | ECHOCARDIOGRAPHY REPORT ---
PROCEDURE PHYSICIAN: KEELEY ROSSI DATE OF PROCEDURE: 10/16/2016 TWO DIMENSIONAL ECHOCARDIOGRAM REPORT PRIMARY PHYSICIAN: OTHER PHYSICIAN: REFERRING PHYSICIAN: Dr. Goyal ORDERING PHYSICIAN: INDICATION FOR THE PROCEDURE: Shortness of breath. MEASUREMENTS DERIVED VALUES LV DIAMETER (LAX) NORMALS NORMALS Diastolic (3.6-5.2) Eject. Fract. (60%+/-6%) Systolic (2.3-3.9) Diastolic Vol. % Shortening (0.22-0.42) Systolic Vol. Aortic Root IVS THICKNESS Diastolic (0.6-1.1) LVPW THICKNESS Diastolic (0.6-1.1) LA DIAMETER Systolic (2.1-3.7) FINDINGS: 1. Technically difficult study. Contrast was used for better enhancement of the endocardium. 2. The left ventricle is normal in size. Endocardium was not well visualized initially. After the contrast it appeared to be normal in contractility with ejection fraction 60%. Diastolic dysfunction is suggested by Doppler. 3. The left atrium is slightly prominent. No clot or thrombus were seen. 4. The right atrium and right ventricle are normal in size. No clot or thrombus were seen within the right side. 5. Mitral valve is normal in morphology with mild mitral regurgitation noted by color Doppler flow. No mitral valve prolapse. No mitral valve stenosis. 6. Aortic valve is functioning normally. No significant aortic stenosis or regurgitation was seen. 7. Tricuspid valve is normal in morphology with mild tricuspid regurgitation noted by color Doppler flow. Doppler across tricuspid valve estimated pulmonary artery pressure 16+ right atrial pressure. 8. Pulmonic valve is functioning normally. 9. No pericardial effusion. IN CONCLUSION: 1. Technically difficult study. Contrast was used for better enhancement of the endocardium. 2. Normal left ventricular size and systolic function. Estimated ejection fraction 60%. 3. Diastolic dysfunction is suggested by Doppler. 4. Mild mitral and tricuspid regurgitation. 5. Estimated pulmonary artery pressure of 25 mmHg. Job ID: [id number] Dictated Date: 10/16/2016 14:54:40 Pad Hand Date: 10/17/2016 07:39:22 / debra
[2016-10-17 08:34] VITALS: BP 140/70
[2016-10-17] MEDS: RT-ALBUTEROL/IPRATROPIUM 3 ML (DUONEB) VIAL INH SCH ×4 (08:39→19:16)
[2016-10-17] MEDS: MAGNESIUM OXIDE (MAG-OX)400 MG TAB PO SCH (08:49)
[2016-10-17] MEDS: LOSARTAN 50 MG (COZAAR) TAB PO SCH (08:49)
[2016-10-17] MEDS: FUROSEMIDE 40 MG/4 ML INJ (LASIX) IV SCH ×2 (08:50→21:10)
[2016-10-17] MEDS: DILTIAZEM 240 MG (CARDIZEM CD) CAP PO SCH (08:50)
[2016-10-17] MEDS: GABAPENTIN 300 MG (NEURONTIN) CAP PO SCH ×3 (08:50→21:10)
[2016-10-17] MEDS: ATENOLOL 25 MG (TENORMIN) TAB PO SCH (08:50)
--- NOTE | 2016-10-17 09:49 | Physical Therapy Daily Note ---
PT Daily Note-Current Subjective Patient is up in recliner with spouse present. Patient agrees to PT. Pain Numeric Pain Scale: 0-No Pain Location: No Pain Reported Mental Status Patient Orientation: Normal For Age Attachments: Oxygen (3L HF NC) Transfers Functional [place] Measure 0=Not Assessed/NA 4=Minimal Assistance 1=Total Assistance 5=Supervision or Setup 2=Maximal Assistance 6=Modified [place] 3=Moderate Assistance 7=Complete IndependenceIRFPAI Quality Coding Scale 6 Independent with activity with or without an assistive device 5 Patient requires set up or clean up by helper. Patient completes activity by themselves 4 Supervision or touching assist (CGA). [place] provide cues , steadying assist 3 The helper provides less than half the effort to complete the activity 2 The helper provides more than half the effort to complete the activity 1 Dependent. The helper does all the effort to complete an activity 7 Patient refused to complete or attempt activity 9 The patient did not perform the activity before the current illness or injury 88 Not attempted due to Medical conditions or safety concerns Transfers (B, C, W/C) (FIM): 4 Scootin Sit to/from Stand: 4 CGA assist with initial sit to stand transfers Gait Training Gait (FIM): 2 Distance (FIM): 7=323-10 ft Distance: 80' x 3 Gait Level of Assist: 4 Gait Persons Needed: 1 Gait Assistive Device: FWW safe and functional Exercises Seated Therapy Exercises: Ankle pumps, Long arc quads, Hip flexion Seated Reps: 20 (x 2 sets) Treatments increase in activity to improve cardiopulmonary functional with functional mobility Assessment Patient is improving with treatment. Education with patient and spouse on continuing exercises and ambulation at home after dismissal given. Patient continued to state he is very inactive when he returns to home. Patient SAO2 on 3L with activity remains 90% or better. PT Shelter Goals Shelter Goals PT Electronic Equipment Trades Worker Goals Time Frame: Oct 29, 2016 Transfers (B,C,W/C) (FIM): 6 Gait (FIM): 6 Gait distance (FIM): 3=150 ft Distance: 150' Gait Level of Assist: 6 Gait Assistive Device: FWW, Cane Single Point PT Plan Treatment/Plan Treatment Plan: Continue Plan of Care Treatment Plan: Bed Mobility, Education, Functional Activity Amanda, Functional Strength, Gait, Safety, Therapeutic Exercise, Transfers Treatment Duration: Oct 29, 2016 Visits Per Week: 10-11 Time/GCodes Time In: 855 Time Out: 920 Total Billed Treatment Time: 25 Total Billed Treatment 1 visit FA 15 min EX 10 min NIKHIL LEBLANC PT Oct 17, 2016 09:49
--- NOTE | 2016-10-17 10:00 | Progress Note-Hospitalist ---
Progress Note HPI/CC on Admission This is a 80-year-old white male just recently discharged after a 3 week hospitalization for respiratory failure and diabetes out of control. He had been doing fairly well but had a being fluctuating weight at home. He is been followed closely by home health. denies any increased pedal edema. Evidently he got up in the middle of the night and went to the bathroom to get a drink of water. He became acutely short of breath and unable to catch his breath despite using his home oxygen. He presented to the emergency room in hypercapnic respiratory failure and was intubated. This morning he is still intubated with improved blood gases. Chest x-ray shows increased interstitial edema. Progress Notes/Assess & Plan Date Seen 10/17/16 Diagonsis/Assessment & Plan Chart Review: RN called to report hematuria so Lovenox and Aspirin were stopped and pt declined consult with Dr. Ascencio. No fever. Vitals stable. WBC 9.4 Hgb 11 Creat 1.[address] Herring Pt interview: Pt has been working with PT. Pt no longer urinating blood. Pt states that he has had BM. Physical exam was stable. Pt has concerns about weight gain. Dr. Mortensen discusses options with pt in case he does not qualify for in-pt rehab. Pt states that he does not want to go home, but does not have specific care facility in mind. AFVSS, Chronically ill, pleasant Irr Irr, CTAB decreased BS all [place] but improved Trace edema Laboratory Tests 10/17/16 05:06 Assessment: 1. VDRF s/p extubation due to acute on chronic diastolic dysfunction with pulmonary edema s/p with possible atypical pneumonia that is requiring Levaquin. 2. Acute COPD exacerbation 3. Chronic atrial fibrillation on Coumadin 4. Type II diabetes mellitus insulin-requiring and monitor fingerstick blood sugars. 5. Mild hypokalemia 6. Debility 7. Edema 8. ARF worsened due to Lasix 9. Hematuria gross requiring hold of Lovenox and Coumadin and ASA Plan: In-pt rehab eval but likely will go to [facility] tomorrow SW/SS consult regarding DC to care/rehab facility Will confer with Cardiology regarding anti-coagulation and ASA since both were stopped yesterday due to hematuria Poor prognosis film writer and Palliative Care has been consulted for preparation since the decline is noted and multiple hospitalization recently and now [facility] placement indicating decline Scribed by Shalom Alexandra under the direct supervision of Dr. Mortensen. SASCHA MORTENSEN DO Oct 17, 2016 10:00
--- NOTE | 2016-10-17 10:45 | Occupational Ther Daily Note ---
OT Current Status-Daily Note Subjective Pt alert, sitting in recliner. Pt's present in room. Pt agreed to therapy. Pt stated that he was going to take a shower later. No c/o pain at this time. Mental Status/Objective Patient Orientation: Person, Place, Time, Situation Functional [place] Measure 0=Not Assessed/NA 4=Minimal Assistance 1=Total Assistance 5=Supervision or Setup 2=Maximal Assistance 6=Modified [place] 3=Moderate Assistance 7=Complete [place] Attachments: IV, Oxygen Other Treatment Pt completed 4 UE exercises against gravity 2 sets of sets. Pt tolerated exercises though had increased SOA and c/o shldr discomfort, recovered in moderate time. Arm chair pushups completed 1 set of 3 reps and 1 set of 2 reps , pt very fatigued after this. Pt given exercise handout to complete when able. After therapy, pt sitting in recliner with call light/phone in reach. All needs met in room. present in room. OT Short Term Goals Short Term Goals 1=Demonstrate adherence to instructed precautions during ADL tasks. 2=Patient will verbalize/demonstrate understanding of assistive devices/ modifications for ADL. 3=Patient will improve strength/tolerance for activity to enable patient to perform ADL's. OT Data Warehousing Manager Goals [facility] Goals Time Frame: Oct 29, 2016 Eating (FIM): 6 Grooming(FIM): 6 Upper Body Dressing(FIM): 5 Lower Body Dressing(FIM): 4 Toileting(FIM): 5 Toilet/Commode Transfer(FIM): 5 Additional Goals: 1-Demonstrate ADL Tasks, 2-Verbalize Understanding, 3- ImproveStrength/Amanda 1=Demonstrate adherence to instructed precautions during ADL tasks. 2=Patient will verbalize/demonstrate understanding of assistive devices/ modifications for ADL. 3=Patient will improve strength/tolerance for activity to enable patient to perform ADL's. OT Education/Plan Problem List/Assessment Pt demonstrates decreased activity tolerance, mobility, strength, and ADL functioning. Pt to benefit from skilled OT intervention for ADL training, transfers, strengthening, adaptive equipment training as needed and home safety education to increase level of independence and allow safe discharge. Discharge Recommendations Plan/Recommendations: Continue POC Treatment Plan/Plan of Care Patient would benefit from OT for education, treatment and training to promote independence in ADL's, mobility, safety and/or upper extremity function for ADL' s. Plan of Care: ADL Retraining, Functional Mobility, UE Funct Exercise/Act Treatment Duration: Oct 29, 2016 Visits Per Week: 5 Agreement: Yes Rehab Potential: Fair Time/GCodes Start Time: 09:30 Stop Time: 09:50 Total Time Billed (hr/min): 20 Billed Treatment Time 1 visit-EX 1 (20 min) PIYUSH RAZO Oct 17, 2016 10:45
--- NOTE | 2016-10-17 10:57 | Cardiology Progress Note ---
Subjective Subjective/Events-last exam Patient sitting up in bed, no new complaint. Continues to complain of dyspnea. Review of Systems General: No Night Sweats, No Fatigue, No Malaise HEENT: No Visual Changes, No Dysphasia, No Sore Throat Pulmonary: No Dyspnea, No Cough Cardiovascular: : EdemaNo: Chest Pain, Palpitations, Paroxysmal Noc. Dyspnea Gastrointestinal: No: Nausea, Vomiting Genitourinary: No Dysuria, No Frequency, Hematuria Musculoskeletal: No: neck pain Neurological: : WeaknessNo: Change in speech, Confusion, Numbness Objective-Cardiology Exam Last Set of Vital Signs Vital Signs 10/15/16 10/17/16 10/17/16 10/17/16 06:10 08:34 08:39 10:35 Temp 97.2 Pulse 81 Resp 20 B/P 140/70 Pulse Ox 92 O2 Delivery Nasal Cannula O2 Flow Rate 3.00 FiO2 35 Capillary Refill : Less Than 3 Seconds I&O Intake and Output 10/17/16 00:00 Intake Total 1990 ml Output Total 1400 ml Balance 590 ml Intake Oral 1840 ml IV Total 150 ml Output Urine Total 1400 ml # Bowel Movements 1 General: Alert, Oriented X3, Cooperative HEENT: Atraumatic, PERRLA Neck: Supple, No JVD, No Thyromegaly Lungs: Other (diminished breath sounds) Heart: Other (irregularly irregular) Abdomen: Normal Bowel Sounds, Soft Extremities: Other (+2 edema BLE) Neuro: Normal Speech, Cranial Nerves 3-12 NL Psych/Mental Status: Mental Status NL, Mood NL Results Lab Laboratory Tests 10/17/16 05:06 A/P-Cardiology Admission Diagnosis Respiratory failure Permanent atrial fibrillation COPD HTN Assessment/Plan Acute respiratory failure- patient is extubated and up in chair. Slowly improving. was hospitalized in Aug 2016 for respiratory failure and pneumonia. Improving slowly. Continue to monitor Permanent atrial fibrillation, rate slightly tachycardic. [id number] score is 4, yearly risk of stroke without oral anticoagulation is 4 percent. Coumadin on hold secondary to hematuria. Severe COPD, VIPIN- followed by Dr. Herring. Patient uses CPAP at home. Hypertension. Controlled. Continue to monitor BP/HR Diastolic dysfunction- most recent 2D Echo 10/16/16 revealed EF 60%, diastolic dysfunction. Questionable coronary artery disease, patient has multiple risk factors, has been refusing to have a stress test. Peripheral vascular disease, patient had RANULFO done in February 2015, it was 0.54 on the right, 0.77 on the left, patient had angiogram with complex intervention with angioplasty to the right anterior tibial artery, the right peroneal artery with good results with Dr. Gutiérrez. 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 Patient was staged for angiogram and intervention of the left leg then Dr. Gutiérrez has left. Most recent RANULFO done October 2015 within normal limits. Continue to monitor. Chronic venous insufficiency, seen by Dr. Castro in [place], status post ablation by Dr. Castro on the right side. Acute on chronic renal insufficiency- continue to monitor renal function. Hyperlipidemia, controlled. Continue to monitor Diabetes mellitus. Followed and managed by primary care physician. Continue to monitor, no changes. Diabetic neuropathy. Mild bilateral carotid stenosis, last ultrasound was done in March 2016. Continue to monitor. Gross hematuria- refusing urology consult. Will hold ASA and Coumadin at this time until follow up in our office next week. Clinical Quality Measures DVT/VTE Risk/Contraindication: Risk Factor Score Per Nursin RFS Level Per Nursing on Admit: 4+=Very High JACQUELINE SHARPE Oct 17, 2016 10:57
[2016-10-17 11:59] VITALS: BP 120/66
--- NOTE | 2016-10-17 13:38 | Physical Therapy Daily Note ---
PT Daily Note-Current Subjective Patient is in bed and just returned from taking a shower with JACKET CHANGER assistance. Noted increase SOA on 3L O2 NC HF with SAO2 95% taken by PT. Pain Numeric Pain Scale: 0-No Pain Location: No Pain Reported Mental Status Patient Orientation: Normal For Age Attachments: Oxygen Transfers Functional [place] Measure 0=Not Assessed/NA 4=Minimal Assistance 1=Total Assistance 5=Supervision or Setup 2=Maximal Assistance 6=Modified [place] 3=Moderate Assistance 7=Complete IndependenceIRFPAI Quality Coding Scale 6 Independent with activity with or without an assistive device 5 Patient requires set up or clean up by helper. Patient completes activity by themselves 4 Supervision or touching assist (CGA). [place] provide cues , steadying assist 3 The helper provides less than half the effort to complete the activity 2 The helper provides more than half the effort to complete the activity 1 Dependent. The helper does all the effort to complete an activity 7 Patient refused to complete or attempt activity 9 The patient did not perform the activity before the current illness or injury 88 Not attempted due to Medical conditions or safety concerns Treatments Education with patient on proper breathing techniques and energy conservation to improve quality of life. PT asked patient is O2 was in place with taking a shower. Patient answered "no". Education with patient on possible/probable negative side effects of not wearing O2 continuously, even in the shower. Patient education on energy conservation with using assistance with all upper body activity with ADL's due to increase SOA and decreased SAO2 with excessive upper body use and not using O2 at all time. Patient voiced understanding. Assessment Patient educated given to patient on breathing techniques and energy conservation. Patient is very limited with cardiopulmonary function. RT in for treatment. PT Residential Goals Hat Blocking Operator Goals PT Residential Goals Time Frame: Oct 29, 2016 Transfers (B,C,W/C) (FIM): 6 Gait (FIM): 6 Gait distance (FIM): 3=150 ft Distance: 150' Gait Level of Assist: 6 Gait Assistive Device: FWW, Cane Single Point PT Plan Treatment/Plan Treatment Plan: Continue Plan of Care Treatment Plan: Bed Mobility, Education, Functional Activity Amanda, Functional Strength, Gait, Safety, Therapeutic Exercise, Transfers Treatment Duration: Oct 29, 2016 Visits Per Week: 10-11 Safety Risks/Education Patient Education: Disease Process, Safety Issues Teaching Recipient: Patient Teaching Methods: Discussion Response to Teaching: Verbalize Understanding Discharge Recommendations Therapy D/C Recommendations: Group Home (TCU/NH) Time/GCodes Time In: 1322 Time Out: 1332 Total Billed Treatment Time: 10 Total Billed Treatment 1 visit Educ 10 min NIKHIL LEBLANC PT Oct 17, 2016 13:38
--- NOTE | 2016-10-17 15:18 | Cardiology Progress Note ---
Subjective Subjective/Events-last exam Patient is sitting in a chair, still having pedal edema, denied any chest pain. Significant dyspnea. Review of Systems General: No Chills, No Night Sweats, No Fatigue, No Malaise, No Appetite, No Other HEENT: No Head Aches, No Visual Changes, No Eye Pain, No Ear Pain, No Dysphasia , No Sinus Congestion, No Post Nasal Drip, No Sore Throat, No Other Pulmonary: DyspneaNo Cough, No Pleuritic Chest Pain, No Other Cardiovascular: : EdemaNo: Chest Pain, Lt Headedness, Orthopnea, Other, Palpitations, Paroxysmal Noc. Dyspnea Objective-Cardiology Exam Last Set of Vital Signs Vital Signs 10/15/16 10/17/16 10/17/16 06:10 11:59 13:43 Temp 98.0 Pulse 68 Resp 16 B/P 120/66 Pulse Ox 98 O2 Delivery High Flow NC O2 Flow Rate 36.00 FiO2 35 Capillary Refill : Less Than 3 Seconds I&O Intake and Output 10/17/16 00:00 Intake Total 1990 ml Output Total 1400 ml Balance 590 ml Intake Oral 1840 ml IV Total 150 ml Output Urine Total 1400 ml # Bowel Movements 1 General: Alert, Oriented X3, Cooperative HEENT: Atraumatic, PERRLA Neck: Supple, No JVD, No Thyromegaly Lungs: Other (diminished breath sounds) Heart: Other (irregularly irregular) Abdomen: Normal Bowel Sounds, Soft Extremities: Other (+2 edema BLE) Neuro: Normal Speech, Cranial Nerves 3-12 NL Psych/Mental Status: Mental Status NL, Mood NL Results Lab Laboratory Tests 10/17/16 05:06 A/P-Cardiology Admission Diagnosis Respiratory failure Permanent atrial fibrillation COPD HTN Assessment/Plan Acute respiratory failure- patient is extubated and up in chair. Slowly improving. was hospitalized in Aug 2016 for respiratory failure and pneumonia. Improving slowly. Continue to monitor Permanent atrial fibrillation, rate slightly tachycardic. [id number] score is 4, yearly risk of stroke without oral anticoagulation is 4 percent. Coumadin on hold secondary to hematuria. Patient refuses to see Dr. Ascencio. Managed by primary care physician. I'll see him as an outpatient in my office next week Severe COPD, VIPIN- followed by Dr. Herring. Patient uses CPAP at home. Hypertension. Controlled. Continue to monitor BP/HR Diastolic dysfunction- most recent 2D Echo 10/16/16 revealed EF 60%, acute on chronic left ventricular diastolic dysfunction. Hypertensive heart disease, continue on current medications and monitor as an outpatient. Questionable coronary artery disease, patient has multiple risk factors, has been refusing to have a stress test. Peripheral vascular disease, patient had RANULFO done in February 2015, it was 0.54 on the right, 0.77 on the left, patient had angiogram with complex intervention with angioplasty to the right anterior tibial artery, the right peroneal artery with good results with Dr. Gutiérrez. 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 Patient was staged for angiogram and intervention of the left leg then Dr. Gutiérrez has left. Most recent RANULFO done October 2015 within normal limits. Continue to monitor. Chronic venous insufficiency, seen by Dr. Castro in [place], status post ablation by Dr. Castro on the right side. Acute on chronic renal insufficiency- continue to monitor renal function. Hyperlipidemia, controlled. Continue to monitor Diabetes mellitus. Followed and managed by primary care physician. Continue to monitor, no changes. Diabetic neuropathy. Mild bilateral carotid stenosis, last ultrasound was done in March 2016. Continue to monitor. Gross hematuria- refusing urology consult. Will hold ASA and Coumadin at this time until follow up in our office next week. Clinical Quality Measures DVT/VTE Risk/Contraindication: Risk Factor Score Per Nursin RFS Level Per Nursing on Admit: 4+=Very High KEELEY ROSSI MD Oct 17, 2016 3:18 pm
[2016-10-17 16:39] VITALS: BP 113/69
[2016-10-17] MEDS: NIACIN 500 MG TABLET PO SCH (17:12)
[2016-10-17 20:00] VITALS: BP 156/61
[2016-10-17] MEDS: LEVOFLOXACIN 750 MG/150 ML D5W (PRE-MIX) IV SCH (21:09)
[2016-10-17] MEDS: ALFUZOSIN HCL 10 MG TAB (UROXATRAL) PO SCH (21:10)
[2016-10-18] VITALS: BP 136/84
[2016-10-18 04:00] VITALS: BP 159/70
[2016-10-18 04:50] LABS: BASOPHILS % (AUTO) 0 % (0-10); EOSINOPHILS # (AUTO) 0.1 10^3/uL (0.0-0.3); EOSINOPHILS % (AUTO) 1 % (0-10); LYMPHOCYTES # (AUTO) 1.2 X 10^3 (1.0-4.0); LYMPHOCYTES % (AUTO) 11 % (12-44); MEAN CORPUSCULAR HEMOGLOBIN 32 PG (25-34); MEAN CORPUSCULAR HGB CONC 34 G/DL (32-36); MEAN CORPUSCULAR VOLUME 94 FL (80-99); MEAN PLATELET VOLUME 10.3 FL (7.4-10.4); MONOCYTES # (AUTO) 1.6 X 10^3 (0.0-1.0); MONOCYTES % (AUTO) 15 % (0-12); NEUTROPHILS # (AUTO) 7.5 X 10^3 (1.8-7.8); NEUTROPHILS % (AUTO) 72 % (42-75); PLATELET COUNT 125 10^3/uL (130-400); RED BLOOD COUNT 3.58 10^6/uL (4.35-5.85); RED CELL DISTRIBUTION WIDTH 14.2 % (10.0-14.5); WHITE BLOOD COUNT 10.4 10^3/uL (4.3-11.0)
[2016-10-18 05:00] LABS: INR 1.2 (0.8-1.4); PROTHROMBIN TIME PATIENT 14.8 SEC (12.2-14.7)
[2016-10-18 05:11] LABS: BILIRUBIN,TOTAL 0.9 MG/DL (0.1-1.0); CALCIUM 9.5 MG/DL (8.5-10.1); CREATININE SERUM 1.79 MG/DL (0.60-1.30); MAGNESIUM 2.1 MG/DL (1.8-2.4); PHOSPHORUS 3.1 MG/DL (2.3-4.7); POTASSIUM 4.6 MMOL/L (3.6-5.0); TOTAL PROTEIN 5.7 G/DL (6.4-8.2)
[2016-10-18] MEDS: KCL 20 MEQ TAB (K-DUR) PO SCH (05:56)
[2016-10-18] MEDS: inSUlin (REGULAR) HUMAN 1 UNIT/0.01 ML (CHARGE PER UNIT) SC SCH ×2 (05:56→11:59)
--- NOTE | 2016-10-18 06:24 | Pulmonary Progress Note ---
Subjective Subjective/Events-last exam Pt doing well no complications noted. Exam Exam Vital Signs Date Time Temp Pulse Resp B/P Pulse Ox O2 Delivery O2 Flow Rate FiO2 10/18/16 02:20 21 36.00 10/18/16 01:00 73 10/18/16 00:43 78 28 95 36.00 10/18/16 00:00 99.8 71 24 136/84 98 NIV/Bilevel 10/17/16 20:00 Nasal Cannula 3.00 10/17/16 20:00 97.9 88 18 156/61 98 High Flow NC 3.00 10/17/16 19:16 95 3.00 10/17/16 19:00 91 10/17/16 16:39 97.8 78 20 113/69 92 High Flow NC 3.00 10/17/16 13:43 68 16 98 36.00 10/17/16 13:29 69 10/17/16 11:59 98.0 80 20 120/66 97 High Flow NC 3.00 10/17/16 10:35 92 3.00 10/17/16 09:00 Nasal Cannula 3.50 10/17/16 08:39 91 Nasal Cannula 3.00 10/17/16 08:34 97.2 81 20 140/70 91 High Flow NC 3.00 10/17/16 07:33 88 I & O 10/18/16 07:00 Intake Total 1920 ml Output Total 1100 ml Balance 820 ml General Appearance: No Apparent Distress WD/WN HEENT: PERRL/EOMI Normal ENT Inspection Neck: Non Tender Supple Respiratory: No Accessory Muscle Use No Respiratory Distress Decreased Breath Sounds Rhonci Cardiovascular: No Gallop No JVD No Murmur Irregularly Irregular Tachycardia Capillary Refill: Less Than 3 Seconds Extremity: Non Tender No Calf Tenderness Pedal Edema Neurologic/Psychiatric: Alert 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 Norm as Tested Skin: Normal Color Warm/Dry Results Lab Laboratory Tests 10/17/16 05:06 10/18/16 04:35 Assessment/Plan Assessment/Plan Acute respiratory failure s/p vent -Levaquin - will d/c tomorrow Pulmonary edema -Lasix acute renal failure -monitor Hx of severe COPD -Continue SVNs morbid obesity with VIPIN -Pt uses home BiPAP with oxygen -restart hospital BiPAP Deconditioning obesity -SW for possible ECF vs hospice -Dietary for education -consult PT/OT Clinical Quality Measures DVT/VTE Risk/Contraindication: Risk Factor Score Per Nursin RFS Level Per Nursing on Admit: 4+=Very High KEIKO VALENZUELA DO Oct 18, 2016 06:24
[2016-10-18 06:42] VITALS: BP 159/70
[2016-10-18] MEDS: RT-ALBUTEROL/IPRATROPIUM 3 ML (DUONEB) VIAL INH SCH ×2 (07:04→10:28)
[2016-10-18 08:00] VITALS: BP 132/85
[2016-10-18] MEDS: GABAPENTIN 300 MG (NEURONTIN) CAP PO SCH ×2 (08:52→11:59)
[2016-10-18] MEDS: LOSARTAN 50 MG (COZAAR) TAB PO SCH (08:52)
[2016-10-18] MEDS: FUROSEMIDE 40 MG/4 ML INJ (LASIX) IV SCH (08:53)
[2016-10-18] MEDS: ATENOLOL 25 MG (TENORMIN) TAB PO SCH (08:53)
[2016-10-18] MEDS: DILTIAZEM 240 MG (CARDIZEM CD) CAP PO SCH (08:53)
[2016-10-18] MEDS: MAGNESIUM OXIDE (MAG-OX)400 MG TAB PO SCH (08:53)
--- NOTE | 2016-10-18 10:09 | Discharge Summary-Hospitalist ---
Diagnosis/Chief Complaint Date of Admission Oct 13, 2016 at 23:19 Date of Discharge Discharge Date: Admission Diagnosis 1. Acute respiratory cydbrls-[id number]-wr cefepime, Levaquin, and vancomycin and steroids 2. Chronic respiratory failure 3. Chronic atrial fibrillation 4. Type II diabetes out of control 5. CHF most likely secondary to diastolic dysfunction 6. Morbid obesity 7. Deconditioning 8. Anemia with a drop in hemoglobin- Hemoccult stools. NG aspirin 9. Acute renal insufficiency Plan- continue ventilator support, Lasix as needed, monitor blood sugars, pulmonary and cardiac consultation, Discharge Diagnosis Assessment: 1. VDRF s/p extubation due to acute on chronic diastolic dysfunction with pulmonary edema s/p with possible atypical pneumonia that is requiring Levaquin. 2. Acute COPD exacerbation 3. Chronic atrial fibrillation on Coumadin 4. Type II diabetes mellitus insulin-requiring and monitor fingerstick blood sugars. 5. Mild hypokalemia 6. Debility 7. Edema 8. ARF worsened due to Lasix 9. Hematuria gross requiring hold of Lovenox and Coumadin and ASA Chart Review: RN called to report hematuria so Lovenox and Aspirin were stopped and pt declined consult with Dr. Ascencio. No fever. Vitals stable. WBC 9.4 Hgb 11 Creat 1.[address] Herring Pt interview: Pt has been working with PT. Pt no longer urinating blood. Pt states that he has had BM. Physical exam was stable. Pt has concerns about weight gain. Dr. Mortensen discusses options with pt in case he does not qualify for in-pt rehab. Pt states that he does not want to go home, but does not have specific care facility in mind. AFVSS, Chronically ill, pleasant Irr Irr, CTAB decreased BS all [place] but improved Trace edema Laboratory Tests 10/17/16 05:06 Assessment: 1. VDRF s/p extubation due to acute on chronic diastolic dysfunction with pulmonary edema s/p with possible atypical pneumonia that is requiring Levaquin. 2. Acute COPD exacerbation 3. Chronic atrial fibrillation on Coumadin 4. Type II diabetes mellitus insulin-requiring and monitor fingerstick blood sugars. 5. Mild hypokalemia 6. Debility 7. Edema 8. ARF worsened due to Lasix 9. Hematuria gross requiring hold of Lovenox and Coumadin and ASA Plan: In-pt rehab eval but likely will go to [facility] tomorrow SW/SS consult regarding DC to care/rehab facility Will confer with Cardiology regarding anti-coagulation and ASA since both were stopped yesterday due to hematuria Poor prognosis director of mechanical engineering and Palliative Care has been consulted for preparation since the decline is noted and multiple hospitalization recently and now [facility] placement indicating decline Scribed by Shalom Alexandra under the direct supervision of Dr. Mortensen. Reason Hospital Visit/Course This is a 80-year-old white male just recently discharged after a 3 week hospitalization for respiratory failure and diabetes out of control. He had been doing fairly well but had a being fluctuating weight at home. He is been followed closely by home health. denies any increased pedal edema. Evidently he got up in the middle of the night and went to the bathroom to get a drink of water. He became acutely short of breath and unable to catch his breath despite using his home oxygen. He presented to the emergency room in hypercapnic respiratory failure and was intubated. This morning he is still intubated with improved blood gases. Chest x-ray shows increased interstitial edema. Notes from 10/18/2016: Chart Review: WBC 10.4 Hgb 11.4 Creat 1.79 Cardiology finalized their specialty meds and will have close follow-up Pt had a fall yesterday but was not injured Patient Interview: Pt states that he feels able to DC today, and does not need any pain meds. Pt will go to [facility] upon DC Pt will be off Aspirin and blood-thinners but will have a close follow-up with Cardiology Physical exam was stable no fever vitals stable, pleasant, oriented 3, chronically ill, sitting in chair , family at bedside irregular rhythm, clear to auscultation bilaterally but decreased breath sounds all [place] No edema Plan: DC to [facility] on skilled care DC Aspirin and blood-thinners until follow-up with Cardiology Pt follow-up with PCP Scribed by Shalom Alexandra under the direct supervision of Dr. Mortensen. Hospital course: Patient had a lengthy hospital course after he was admitted for respiratory failure required BiPAP and intubation due to overt heart failure and exacerbation of COPD and obstructive sleep apnea. Patient was able to be extubated without complication under Dr. Herring's expertise is placed on Levaquin empirically for bronchitis. Hematuria gross type occurred requiring. Of aspirin therapy and Lovenox and holding Coumadin and that resolved and he declined urology consultation. Overall his labs return back to normal but multiple hospitalizations have caused significant ability to the patient and he required skilled nursing admission on skilled therapy to [facility] on date of discharge with close follow-up with Dr. Gomez his primary care provider and Dr. Niño's residential substance abuse counselor. Aspirin and Lovenox and Coumadin will be held until close follow-up for stroke prophylaxis restart of meds due to the fact of the hematuria but risk outweighed the benefits of stroke prophylaxis with anticoagulation due to overt hematuria could occur. Overall prognosis is extremely poor I did consult palliative care in preparation for end-stage illness in preparation for future readmissions and decline status. Discharge Summary Discharge Physical Examination Allergies: Coded Allergies: sulfamethoxazole (Verified Allergy, Mild, RASH, 10/31/15) trimethoprim (Verified Allergy, Mild, RASH, 10/31/15) Vitals & I&Os Vital Signs Date Time Temp Pulse Resp B/P Pulse Ox O2 Delivery O2 Flow Rate FiO2 10/18/16 10:31 79 3.00 10/18/16 09:00 Nasal Cannula 10/18/16 08:00 97.4 80 20 132/85 10/15/16 06:10 35 Hospital Course Labs (last 24 hrs) Laboratory Tests 10/17/16 15:47: Glucometer 154H 10/17/16 20:44: Glucometer 243H 10/18/16 04:35: Alanine Aminotransferase (ALT/SGPT) 22, Albumin 3.0L, Alkaline Phosphatase 53, Anion Gap 10, Aspartate Amino Transf (AST/SGOT) 23, BUN/Creatinine Ratio 18, Basophils # (Auto) 0.0, Basophils (%) (Auto) 0, Blood Urea Nitrogen 32H, Calcium Level 9.5, Carbon Dioxide Level 24, Chloride Level 101, Creatinine 1.79H , Eosinophils # (Auto) 0.1, Eosinophils (%) (Auto) 1, Estimat Glomerular Filtration Rate 37, Glucose Level 122H, Hematocrit 34L, Hemoglobin 11.4L, INR Comment 1.2, Lymphocytes # (Auto) 1.2, Lymphocytes (%) (Auto) 11L, Magnesium Level 2.1, Mean Corpuscular Hemoglobin 32, Mean Corpuscular Hemoglobin Concent 34, Mean Corpuscular Volume 94, Mean Platelet Volume 10.3, Monocytes # (Auto) 1.6H, Monocytes (%) (Auto) 15H, Neutrophils # (Auto) 7.5, Neutrophils (%) (Auto ) 72, Phosphorus Level 3.1, Platelet Count 125L, Potassium Level 4.6, Prothrombin Time 14.8H, Red Blood Count 3.58L, Red Cell Distribution Width 14.2 , Sodium Level 135, Total Bilirubin 0.9, Total Protein 5.7L, White Blood Count 10.4 10/18/16 04:40: Glucometer 132H 10/18/16 05:32: Glucometer 151H 10/18/16 10:40: Glucometer 196H Microbiology 10/13/16 Blood Culture - Preliminary, Resulted No growth 10/14/16 Gram Stain - Final, Complete 10/14/16 Sputum Culture - Final, Complete Usual/normal akilah isolated. Pending Labs Laboratory Tests 10/18/16 04:35: Alanine Aminotransferase (ALT/SGPT) 22, Albumin 3.0, Alkaline Phosphatase 53, Anion Gap 10, Aspartate Amino Transf (AST/SGOT) 23, BUN/Creatinine Ratio 18, Basophils # (Auto) 0.0, Basophils (%) (Auto) 0, Blood Urea Nitrogen 32, Calcium Level 9.5, Carbon Dioxide Level 24, Chloride Level 101, Creatinine 1.79, Eosinophils # (Auto) 0.1, Eosinophils (%) (Auto) 1, Estimat Glomerular Filtration Rate 37, Glucose Level 122, Hematocrit 34, Hemoglobin 11.4, INR Comment 1.2, Lymphocytes # (Auto) 1.2, Lymphocytes (%) (Auto) 11, Magnesium Level 2.1, Mean Corpuscular Hemoglobin 32, Mean Corpuscular Hemoglobin Concent 34, Mean Corpuscular Volume 94, Mean Platelet Volume 10.3, Monocytes # (Auto) 1.6, Monocytes (%) (Auto) 15, Neutrophils # (Auto) 7.5, Neutrophils (%) (Auto) 72, Phosphorus Level 3.1, Platelet Count 125, Potassium Level 4.6, Prothrombin Time 14.8, Red Blood Count 3.58, Red Cell Distribution Width 14.2, Sodium Level 135, Total Bilirubin 0.9, Total Protein 5.7, White Blood Count 10.4 10/18/16 04:40: Glucometer 132 10/18/16 05:32: Glucometer 151 1/20/17 10:40: Glucometer 196 Discharge Home Medications: Active Scripts Active Reported Losartan Potassium 50 Mg Tablet 50 Mg PO DAILY Furosemide 40 Mg Tablet 40 Mg PO BID@0700,1400 Atenolol 25 Mg Tablet 25 Mg PO DAILY Prednisone 10 Mg Tab 10 Mg PO DAILY Warfarin Sodium 5 Mg Tablet 5 Mg PO DAILY Gabapentin 300 Mg Capsule 300 Mg PO TID Probiotic (Lactobacillus Acidophilus) 1 Each Capsule 1 Cap PO DAILY [Tumeric] 500 Mg PO DAILY Iprat-Albut 0.5-3(2.5) mg/3 ml (Ipratropium/Albuterol Sulfate) 3 Ml Ampul.neb 3 Ml IH Q4H PRN Novolog Flexpen (Insulin Aspart) 300 Units/3 Ml Solution 32-33 Units SQ HS Aspirin EC (Aspirin) 81 Mg Tablet.dr 81 Mg PO DAILY Multivitamins (Multivitamin) 1 Each Tablet 1 Tab PO DAILY [Nattokinase] 2,000 Units PO DAILY Niacin (Niacinamide) 500 Mg Tablet 500 Mg PO DAILY Vitamin D3 (Cholecalciferol (Vitamin D3)) 2,000 Unit Capsule 2,000 Unit PO DAILY Novolog Mix 70-30 Flexpen Syrn (Insuln Asp Prt/Insulin Aspart) 300 Units/3 Ml Solution 30 Units SQ DAILY Daily in am Cartia Xt (Diltiazem HCl) 240 Mg Cap.er.24h 480 Mg PO DAILY Tamsulosin HCl 0.4 Mg Cap.er.24h 0.4 Mg PO HS Klor-Con M20 (Potassium Chloride) 20 Meq Tab.er.prt 40 Meq PO BID TAKES 2 (20 MEQ) TABLETS Magnesium (Magnesium Oxide) 500 Mg Tablet 500 Mg PO HS Instructions to patient/family Please see electonic discharge instructions given to patient. Clinical Quality Measures DVT/VTE Risk/Contraindication: Risk Factor Score Per Nursin RFS Level Per Nursing on Admit: 4+=Very High SASCHA MORTENSEN DO Oct 18, 2016 10:09
--- NOTE | 2016-10-18 10:36 | Discharge Inst-Skilled Nursing ---
Discharge Inst-Skilled NF Patient Instructions Patient Problems: CHF Pulmonary edema Pneumonia Severe VIPIN and COPD Goal: Return to independent living in home Consult/Follow Up/Orders Follow Up Appt.: Obtain f/u appt with Dr Gomez in [address] pavon in 2 weeks Skilled NF Admit to: [facility]ification ([facility]) I certify that SNF services are required to be given on an inpatient basis because of the above named patient's need for fdc care on a continuing basis for the conditions(s) for which he/she was receiving inpatient hospital services prior to his/her transfer to the [facility]. [facility] Facility Order: Nursing Services, Instrument Setter-Evaluate & Treat, Physical Therapy-Evaluate & Treat Discharge Diet: Low Sodium Diet, ADA Diet, Cardiac Diet Daily Activity as Tolerated: Yes New & Resume Previous Orders Paulina Goyal Oct 18, 2016 10:35 PAULINA GOYAL DO Oct 18, 2016 10:36
--- NOTE | 2016-10-18 10:38 | Physical Therapy Daily Note ---
PT Daily Note-Current Subjective Patient is up in chair and agrees to PT. Pain Numeric Pain Scale: 0-No Pain Location: No Pain Reported Mental Status Patient Orientation: Normal For Age Attachments: Oxygen (3L O2 NC HF) Transfers Functional [place] Measure 0=Not Assessed/NA 4=Minimal Assistance 1=Total Assistance 5=Supervision or Setup 2=Maximal Assistance 6=Modified [place] 3=Moderate Assistance 7=Complete IndependenceIRFPAI Quality Coding Scale 6 Independent with activity with or without an assistive device 5 Patient requires set up or clean up by helper. Patient completes activity by themselves 4 Supervision or touching assist (CGA). [place] provide cues , steadying assist 3 The helper provides less than half the effort to complete the activity 2 The helper provides more than half the effort to complete the activity 1 Dependent. The helper does all the effort to complete an activity 7 Patient refused to complete or attempt activity 9 The patient did not perform the activity before the current illness or injury 88 Not attempted due to Medical conditions or safety concerns Transfers (B, C, W/C) (FIM): 5 Scootin Sit to/from Stand: 5 Gait Training Gait (FIM): 4 Distance (FIM): 3=150 ft Distance: 150' Gait Level of Assist: 4 Gait Persons Needed: 1 Gait Assistive Device: FWW slightly unsteady due to increase SOA with exertion on 4L O2 NC HF; Patient requires 3 standing recovery periods due to SOA Assessment Noted diminished cardiopulmonary function with minimal activity. RT in for breathing treatment. Patient to dismiss to [place] on this date for continued care. PT Mcc Goals Mcc Goals PT Die Welder Goals Time Frame: Oct 29, 2016 Transfers (B,C,W/C) (FIM): 6 Gait (FIM): 6 Gait distance (FIM): 3=150 ft Distance: 150' Gait Level of Assist: 6 Gait Assistive Device: FWW, Cane Single Point PT Plan Treatment/Plan Treatment Plan: Discontinue PT Treatment Plan: Bed Mobility, Education, Functional Activity Amanda, Functional Strength, Gait, Safety, Therapeutic Exercise, Transfers Treatment Duration: Oct 29, 2016 Visits Per Week: 10-11 Time/GCodes Time In: 1015 Time Out: 1025 Total Billed Treatment Time: 10 Total Billed Treatment 1 visit GT 10 min NIKHIL LEBLANC PT Oct 18, 2016 10:38
--- NOTE | 2016-10-18 10:39 | Cardiology Progress Note ---
Subjective Subjective/Events-last exam patient is still having significant dyspnea, sitting in chair. Hypoxemia with minimal exertion. Review of Systems General: No Chills, No Night Sweats, No Fatigue, No Malaise, No Appetite, No Other HEENT: No Head Aches, No Visual Changes, No Eye Pain, No Ear Pain, No Dysphasia , No Sinus Congestion, No Post Nasal Drip, No Sore Throat, No Other Pulmonary: No Dyspnea, No Cough, No Pleuritic Chest Pain, No Other Cardiovascular: No: Chest Pain, Edema, Lt Headedness, Orthopnea, Other, Palpitations, Paroxysmal Noc. Dyspnea Objective-Cardiology Exam Last Set of Vital Signs Vital Signs 10/15/16 10/18/16 10/18/16 06:10 08:00 10:31 Temp 97.4 Pulse 80 Resp 20 B/P 132/85 Pulse Ox 79 O2 Delivery High Flow NC O2 Flow Rate 3.00 FiO2 35 Capillary Refill : Less Than 3 Seconds I&O Intake and Output 10/18/16 00:00 Intake Total 2420 ml Output Total 1300 ml Balance 1120 ml Intake Oral 2270 ml IV Total 150 ml Output Urine Total 1300 ml General: Alert, Oriented X3, Cooperative HEENT: Atraumatic, PERRLA Neck: Supple, No JVD, No Thyromegaly Lungs: Other (diminished breath sounds) Heart: Normal S1, Normal S2, Other (irregularly irregular) Abdomen: Normal Bowel Sounds, Soft Extremities: No Clubbing, No Cyanosis, Other (+2 edema BLE) Neuro: Normal Speech, Cranial Nerves 3-12 NL Psych/Mental Status: Mental Status NL, Mood NL Results Lab Laboratory Tests 10/18/16 04:35 A/P-Cardiology Admission Diagnosis Respiratory failure Permanent atrial fibrillation COPD HTN Assessment/Plan Acute respiratory failure, improving, still receiving physical therapy, significant hypoxemia with minimal exertion, exacerbation of COPD. Receiving antibiotics. Permanent atrial fibrillation, rate slightly tachycardic. [id number] score is 4, yearly risk of stroke without oral anticoagulation is 4 percent. Coumadin on hold secondary to hematuria. Patient refuses to see Dr. Ascencio. Managed by primary care physician. Severe COPD, VIPIN- followed by Dr. Herring. Patient uses CPAP at home. Hypertension. Controlled. Continue to monitor BP/HR Diastolic dysfunction- most recent 2D Echo 10/16/16 revealed EF 60%, acute on chronic left ventricular diastolic dysfunction. Hypertensive heart disease, continue on current medications and monitor as an outpatient. Questionable coronary artery disease, patient has multiple risk factors, has been refusing to have a stress test. Peripheral vascular disease, patient had RANULFO done in February 2015, it was 0.54 on the right, 0.77 on the left, patient had angiogram with complex intervention with angioplasty to the right anterior tibial artery, the right peroneal artery with good results with Dr. Gutiérrez. 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 Patient was staged for angiogram and intervention of the left leg then Dr. Gutiérrez has left. Most recent RANULFO done October 2015 within normal limits. Continue to monitor. Chronic venous insufficiency, seen by Dr. Castro in [place], status post ablation by Dr. Castro on the right side. Acute on chronic renal insufficiency- continue to monitor renal function. Hyperlipidemia, controlled. Continue to monitor Diabetes mellitus. Followed and managed by primary care physician. Continue to monitor, no changes. Diabetic neuropathy. Mild bilateral carotid stenosis, last ultrasound was done in March 2016. Continue to monitor. Gross hematuria- refusing urology consult. Clinical Quality Measures DVT/VTE Risk/Contraindication: Risk Factor Score Per Nursin RFS Level Per Nursing on Admit: 4+=Very High KEELEY ROSSI MD Oct 18, 2016 10:39
[2016-10-18] MEDS ORDERED: FUROSEMIDE 40 MG/4 ML INJ (LASIX) IVP NR (10:45)
[2016-10-18] MEDS ORDERED: ENOXAPARIN 40 MG/0.4 ML (LOVENOX) SYR SQ SCH (11:00)
[2016-10-18 13:00] VITALS: BP 141/81
[2016-10-19] MEDS ORDERED: LEVOFLOXACIN 750 MG TAB (LEVAQUIN) PO SCH (21:00)
== END 2016-10-18 13:30 | DRG 208 ==
LOC: EDUNIT# 21:18 → ER 21:20 → ICU 23:19 → 4TH 10-16 12:20
PROVIDERS: ADMIT Internal Medicine; ATTEND Internal Medicine
PROC: 5A1945Z Respiratory Ventilation, 24-96 Consecutive Hours (ICD-10-PCS; principal; 2016-10-13)
DX: J96.22 Acute and chronic respiratory failure with hypercapnia (principal); J96.01 Acute respiratory failure with hypoxia; I11.0 Hypertensive heart disease with heart failure; I50.33 Acute on chronic diastolic (congestive) heart failure; J44.1 Chronic obstructive pulmonary disease with (acute) exacerbation; N17.9 Acute kidney failure, unspecified; E66.01 Morbid (severe) obesity due to excess calories; Z68.41 Body mass index [BMI] 40.0-44.9, adult; I48.2 Chronic atrial fibrillation; G47.33 Obstructive sleep apnea (adult) (pediatric); E11.65 Type 2 diabetes mellitus with hyperglycemia; E11.51 Type 2 diabetes mellitus with diabetic peripheral angiopathy without gangrene; E11.42 Type 2 diabetes mellitus with diabetic polyneuropathy; R19.5 Other fecal abnormalities; R31.0 Gross hematuria; E78.00 Pure hypercholesterolemia, unspecified; H35.30 Unspecified macular degeneration; I95.2 Hypotension due to drugs; T41.295A Adverse effect of other general anesthetics, initial encounter; E87.6 Hypokalemia; Z99.81 Dependence on supplemental oxygen; Z79.4 Long term (current) use of insulin; Z87.891 Personal history of nicotine dependence; Z85.828 Personal history of other malignant neoplasm of skin
CPT/HCPCS: 36415; 51702; 71010; 80053; 80202; 81000; 82271; 82805; 82962; 83605; 83735; 83880; 84100; 85007; 85025; 85027; 85610; 87040; 87070; 87081; 87205; 87804; 93005; 93041; 93306; 94002; 94003; 94640; 94660; 94760; 94799; 96365; 96375

== ENCOUNTER 2016-10-19 02:40 | Inpatient (IN) | payer MEDICARE, BC ==
[~2016-10-19] VITALS: Ht 172.7 cm; Wt 132.9 kg
[2016-10-19] VITALS (23 sets, daily range): BP systolic 94–126; BP diastolic 57–85
[~2016-10-19 02:40] MED LIST changes: -FUROSEMIDE 40 MG/4 ML INJ (LASIX) ONE; +GABA-488 PO; +LACT1CAP62 PO; +RT-ALBUTEROL/IPRATROPIUM 3 ML (DUONEB) VIAL ONE; -RX-NITROGLYCERIN 0.4 MG TAB BTL 25'S SL ONE; +Tumeric PO
--- OUTSIDE RECORDS SUMMARY | 2016-10-19 02:46 | XMS REPORT | Continuity of Care Document ---
Author Author [facility] Organization [facility] Address Unknown Phone Unavailable Care Team Providers Care Consolidation Accountant Name Role Phone Jason Ru PCP [phone] Source Comments Some departments are not documenting in the electronic medical record. If you do not see the information that you expected, contact Release of Information in the Health Information Management department at [phone] for further assistance in locating additional records.[facility] Active Allergies and Adverse Reactions Allergen Noted [...] bleed in. Paroxysmal atrial fibrillation ([facility]) 06/30/2015 Overview: 12/02/13: Echo: LA size 5.5cm. EF 60%. Normal left ventricular systolic function. Mild MR, Mild TR. Essential hypertension 06/30/2015 COPD (chronic obstructive pulmonary disease) ([facility]) 06/30/2015 Last Assessment & Plan: COPD [...] and Noc ox Coronary artery disease involving citizen [place] coronary artery of [place] heart 10/2014 without angina pectoris Diabetic neuropathy [...] 11/15/2016 Appointment Pulmonology Ronen Agosto MD [address] [facility] [address] [place] [address] [phone] (Fax) Health Maintenance Due Date Last Done Comments Physical (Comprehensive) 1943 Exam Pertussis Vaccine 1947 Tetanus Vaccine 1953 Dilated Eye Exam 1954 Foot Exam 1954 Hba1c 1954 Microalbumin 1954 Shingles Vaccine 1996 Prevnar/Pneumovax (#1) 2001 Influenza Vaccine 05/30/2016 Results from Last 3 Months Not on file
[2016-10-19] MEDS ORDERED: DEXTROSE 50% 50 ML (IMS) SYR ONE ×2 (02:47→06:22)
[2016-10-19] MEDS ORDERED: RT-ALBUTEROL/IPRATROPIUM 3 ML (DUONEB) VIAL INH ONE (03:00)
[2016-10-19] MEDS ORDERED: DEXTROSE 50% 50 ML (IMS) SYR IV ONE ×2 (03:00→03:45)
[2016-10-19 03:09] LABS: BASOPHILS % (AUTO) 0 % (0-10); EOSINOPHILS # (AUTO) 0.2 10^3/uL (0.0-0.3); EOSINOPHILS % (AUTO) 1 % (0-10); LYMPHOCYTES # (AUTO) 0.9 X 10^3 (1.0-4.0); MEAN CORPUSCULAR HEMOGLOBIN 32 PG (25-34); MEAN CORPUSCULAR HGB CONC 35 G/DL (32-36); MEAN CORPUSCULAR VOLUME 93 FL (80-99); MEAN PLATELET VOLUME 10.2 FL (7.4-10.4); MONOCYTES # (AUTO) 2.1 X 10^3 (0.0-1.0); NEUTROPHILS # (AUTO) 8.7 X 10^3 (1.8-7.8); NEUTROPHILS % (AUTO) 73 % (42-75); PLATELET COUNT 131 10^3/uL (130-400); RED BLOOD COUNT 3.39 10^6/uL (4.35-5.85); RED CELL DISTRIBUTION WIDTH 14.2 % (10.0-14.5); WHITE BLOOD COUNT 11.9 10^3/uL (4.3-11.0)
[2016-10-19 03:13] LABS: INR 1.2 (0.8-1.4); PROTHROMBIN TIME PATIENT 14.9 SEC (12.2-14.7)
[2016-10-19 03:15] LABS: LYMPHOCYTES % (AUTO) 9 % (12-44); MONOCYTES % (AUTO) 17 % (0-12)
--- NOTE | 2016-10-19 03:23 | ED General ---
General Chief Complaint: Glucose Problems Stated Complaint: LOW BLOOD SUGAR Nursing Triage Note: Pt to ED via [facility] from [facility]. EMS reports initially called to scene for low blood sugar - EMS reports FSBS upon arrival 23. Pt was given 1 amp D50 which increased sugar to 170. Upon arrival to ED, EMS reports FSBS of 115. Facility reports pt was given juice to help increase sugar - pt lung sounds coarse upon arrival. Facility reports o2 saturation in 60s, EMS reprots initial o2 saturation in 80s improved to 90% via 15L nonrebreather. Pt responsive only to painful stimuli upon arrival to ED. Nursing Sepsis Screen: No Definite Risk Source of Information: EMS, Old Records (ALL PMH IS FROM OLD RECORDS), Spouse History of Present Illness Time Seen by Provider: 02:45 Initial Comments PT ARRIVES VIA EMS FROM [facility] [place]. PT WAS REPORTED TO HAVE DECREASED MENTATION--DIFFICULT TO WAKE-AND WAS SWEATY, AND ACCUCHECK WAS 47 PER CARE HOME STAFF THEY GAVE PT ORANGE JUICE, WITH SUSPECTED ASPIRATION--PT NOW WITH "GURGLING" WHICH HE DID NOT HAVE AT BEDTIME AND WAS REPORTEDLY "NORMAL" EMS REPORT THAT OR STAFF TOLD THEM HIS O2 SAT WAS IN 60'S AND WAS PLACED ON NASAL CANULA, PT HAD TAKEN OFF HS CPAP. EMS STATES THAT PT'S O2 SAT WAS 85% ON NASAL CANULA ON THEIR ARRIVAL AT SCENE. EMS STAFF SUCTIONED PT WITH WHAT APPEARED TO BE ORANGE JUICE NOTED AND ODOR OF O.J. ACCUCHECK FOR EMS WAS 23 AND 1 AMP D50 WAS GIVEN, REPEAT ACCUCHECK WAS 170, THEN ANOTHER ACCUCHECK DONE WHILE PULLING INTO ER AND WAS DOWN TO 115 ACCUCHECK 62 ON ARRIVAL INTO ER, ADDITIONAL 2 AMPS OF D50 GIVEN AT THAT TIME BY ER STAFF PT WAS GIVEN 32 UNITS OF INSULIN AT BEDTIME, PER ORDERS. PT WAS ADMITTED TO THIS HOSPITAL 10/15/16-10/18/16 FOR RESPIRATORY FAILURE AND WAS ON VENTILATOR, AND HAD PNEUMONIA---WAS ADMITTED TO [facility] [place] YESTERDAY 10/18/16 ON DISMISSAL FROM HOSPITAL PT WAS ADMITTED HERE IN AUGUST WELL FOR RESPIRATORY FAILURE BUT WAS NOT ON VENTILATOR AT THAT TIME PT HAS HISTORY OF COPD, CHF, IDDM, CHRONIC RENAL FAILURE/INSUFFICIENCY PCP: DR. CADENA. Allergies and Home Medications Allergies Coded Allergies: sulfamethoxazole (Verified Allergy, Mild, RASH, 10/31/15) trimethoprim (Verified Allergy, Mild, RASH, 10/31/15) Home Medications 2,000 UNITS PO DAILY (Reported) 500 MG PO DAILY (Reported) Atenolol 25 Mg Tablet 25 MG PO DAILY (Reported) Cholecalciferol (Vitamin D3) 2,000 Unit Capsule 2,000 UNIT PO DAILY (Reported) Diltiazem HCl 240 Mg Cap.er.24h 480 MG PO DAILY (Reported) Furosemide 40 Mg Tablet 40 MG PO BID@0700,1400 (Reported) Gabapentin 300 Mg Capsule 300 MG PO TID (Reported) Insulin Aspart 300 Units/3 Ml Solution 32-33 UNITS SQ HS (Reported) Insuln Asp Prt/Insulin Aspart 300 Units/3 Ml Solution 30 UNITS SQ DAILY ( Reported) Daily in am Ipratropium/Albuterol Sulfate 3 Ml Ampul.neb 3 ML IH Q4H PRN PRN SHORTNESS OF BREATH (Reported) Lactobacillus Acidophilus 1 Each Capsule 1 CAP PO DAILY (Reported) Losartan Potassium 50 Mg Tablet 50 MG PO DAILY (Reported) Magnesium Oxide 500 Mg Tablet 500 MG PO HS (Reported) Multivitamin 1 Each Tablet 1 TAB PO DAILY (Reported) Niacinamide 500 Mg Tablet 500 MG PO DAILY (Reported) Potassium Chloride 20 Meq Tab.er.prt 40 MEQ PO BID (Reported) TAKES 2 (20 MEQ) TABLETS Prednisone 10 Mg Tab 10 MG PO DAILY (Reported) Tamsulosin HCl 0.4 Mg Cap.er.24h 0.4 MG PO HS (Reported) Constitutional: other (DECREASED MENTATION AND PT NOT TALKING AT ALL, NOT FOLLOWING COMMANDS OR ANSWERING QUESTIONS. ) Respiratory: see HPI Cardiovascular: edema Past Qgwdxxy-Eqotoy-Jvscte Hx Patient Social History Alcohol Use: Denies Use Recreational Drug Use: No Smoking Status: Unknown if Ever Smoked Type Used: Cigarettes Former Smoker/When Quit: Apr 24, 2005 Recent Foreign Travel: No Contact w/Someone Who Travel: No Recent Infectious Disease Expo: No Recent Hopitalizations: Yes (Pneumonia 08/2016) Physical Abuse Screen: No Sexual Abuse: No Immunizations Up To Date Tetanus Booster (TDap): Less than 5yrs PED Vaccines UTD: No Date of Pneumonia Vaccine: Aug 28, 2016 Date of Influenza Vaccine: Aug 28, 2016 Seasonal Allergies Seasonal Allergies: No Surgeries HX Surgeries: Yes (CATARACTS, CARPAL TUNNEL, BILAT.THUMBS) Surgeries: Eye Surgery, Orthopedic, Tonsillectomy Respiratory Hx Respiratory Disorders: Yes (CPAP AT HS; ACUTE ON CHRONIC RESPIRATORY FAILURE ) Respiratory Disorders: Pneumonia, Sleep Apnea, COPD Cardiovascular Hx Cardiac Disorders: Yes Cardiac Disorders: Atrial Fibrillation, High Cholesterol, Hypertension Neurological Hx Neurological Disorders: Yes (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) Neurological Disorders: Neuropathy Reproductive System Hx Reproductive Disorders: No Sexually Transmitted Disease: No HIV/AIDS: No Genitourinary Hx Genitourinary Disorders: Yes Genitourinary Disorders: Benign Prostatic Hyperpl Gastrointestinal Hx Gastrointestinal Disorders: No Musculoskeletal Hx Musculoskeletal Disorders: No Endocrine Hx Endocrine Disorders: Yes Endocrine Disorders: Diabetes, Insulin dep HEENT HX ENT Disorders: Yes HEENT Disorders: Cataract, Macular Degeneration Hearing Impairment: Hard of Hearing Cancer Hx Cancer: Yes (BASAL CELL CARCINOMA) Cancer: Skin Psychosocial Hx Psychiatric Problems: No Integumentary HX Skin/Integumentary Disorder: Yes (CELLULITIS IN LEFT KNEE EARLY OCTOBER 2013) Skin/Integumentary Disorders: Recent Skin Changes Blood Transfusions Hx Blood Disorders: No Adverse Reaction to a Blood Tr: No Family Medical History Significant Family History: Cancer Family Medial History: COPD 19 FATHER Colon cancer 19 MOTHER Diabetes mellitus G8 SISTER Drug abuse G8 SISTER Lung cancer 19 FATHER Polio G8 BROTHER Sarcoidosis G8 BROTHER Physical Exam Vital Signs Vital Sign - Last 12Hours 10/19/16 10/19/16 02:47 03:00 Temp 97.0 Pulse 83 Resp 28 B/P 117/63 Pulse Ox 90 O2 Delivery Nonrebreather O2 Flow Rate 15 Capillary Refill : Greater Than 3 Seconds General Appearance: Obese (MOEBIDLY) Other (UNRESPONSIVE TO VERBAL STIMULI, BUT MINIMALLY RESPONSIVE TO STRONG TACTILE STIMULI. ) Respiratory: Accessory Muscle Use Respiratory Distress (MILD TO MODERATE) Rhonci Other (AUDIBLE RHONICH/UPPER AIRWAY NOISE. TACHYPENIC, WITH LABORED RESPIRATIONS) Cardiovascular: Tachycardia Gastrointestinal: Other (OBESE, FIRM. MULTIPLE BRUISES TO ABDOMEN-APPEAR TO BE FROM INJECTIONS; RASH TO LOWER ABDOMEN; EXCORIATION/SCABBING FOR TELEMETRY PATCHES. ) Extremity: Pedal Edema (2+ EDEMA OF LEGS AND ARMS) Neurologic/Psychiatric: Other (MENTATION ABOVE) Skin: Normal Color Ecchymosis (MULTIPLE) Other (RASH/ERYTHEMA TO ABDOMEN; CHRONIC VENOUS STASIS CHANGES TO LOWER LEGS; SCABBED WOUND TO RIGHT KNEE--NO SIGNS OF INFECTION) Date of ETT Placement: Oct 13, 2016 Time of ETT Placement: 2129 Progress/Results/Core Measures Results/Orders Lab Results Laboratory Tests Test 10/19/16 02:50 10/19/16 02:52 10/19/16 02:53 10/19/16 03:16 Range/Units Activated Partial Thromboplast Time 46 H 24-35 SEC Alanine Aminotransferase (ALT/SGPT) 29 0-55 U/L Albumin 3.0 L 3.2-4.5 G/DL Alkaline Phosphatase 58 40-136 U/L Anion Gap 7 5-14 MMOL/L Aspartate Amino Transf (AST/SGOT) 26 5-34 U/L BUN/Creatinine Ratio 20 Basophils # (Auto) 0.0 0.0-0.1 10^3/uL Basophils (%) (Auto) 0 0-10 % Blood Urea Nitrogen 39 H 7-18 MG/DL Calcium Level 9.6 8.5-10.1 MG/DL Carbon Dioxide Level 25 21-32 MMOL/L Chloride Level 105 98-107 MMOL/L Creatinine 1.94 H 0.60-1.30 MG/DL Eosinophils # (Auto) 0.2 0.0-0.3 10^3/uL Eosinophils (%) (Auto) 1 0-10 % Estimat Glomerular Filtration Rate 34 Glucose Level 58 *L 70-105 MG/DL Hematocrit 32 L 40-54 % Hemoglobin 10.9 L 13.3-17.7 G/DL INR Comment 1.2 0.8-1.4 Lymphocytes # (Auto) 0.9 L 1.0-4.0 X 10^3 Lymphocytes (%) (Auto) 9 L 12-44 % Mean Corpuscular Hemoglobin 32 25-34 PG Mean Corpuscular Hemoglobin Concent 35 32-36 G/DL Mean Corpuscular Volume 93 80-99 FL Mean Platelet Volume 10.2 7.4-10.4 FL Monocytes # (Auto) 2.1 H 0.0-1.0 X 10^3 Monocytes (%) (Auto) 17 H 0-12 % Neutrophils # (Auto) 8.7 H 1.8-7.8 X 10^3 Neutrophils (%) (Auto) 73 42-75 % Platelet Count 131 130-400 10^3/uL Potassium Level 4.5 3.6-5.0 MMOL/L Prothrombin Time 14.9 H 12.2-14.7 SEC Red Blood Count 3.39 L 4.35-5.85 10^6/uL Red Cell Distribution Width 14.2 10.0-14.5 % Sodium Level 137 135-145 MMOL/L Total Bilirubin 0.6 0.1-1.0 MG/DL Total Protein 5.6 L 6.4-8.2 G/DL White Blood Count 11.9 H 4.3-11.0 10^3/uL B-Type Natriuretic Peptide 208.9 H <100.0 PG/ML Troponin I < 0.30 <0.30 NG/ML Glucometer 62 L 183 H 70-110 MG/DL Test 10/19/16 03:35 10/19/16 04:21 10/19/16 04:35 10/19/16 05:13 Range/Units Glucometer 124 H 269 H 201 H 70-110 MG/DL Kadeem Test YES-POS Arterial Blood Base Excess -1.4 -2.5-2.5 MMOL/L Arterial Blood HCO3 28 H 23-27 MMOL/L Arterial Blood Oxygen Saturation 48 L 94-100 % Arterial Blood Partial Pressure CO2 68 H 35-45 MMHG Arterial Blood Partial Pressure O2 31 *L 79-93 MMHG Arterial Blood Total CO2 29.8 21.0-31.0 MMOL/L Arterial Blood pH 7.22 *L 7.37-7.43 Blood Gas Inspired Oxygen 60%FI02 Blood Gas Patient Temperature 96.2 Blood Gas Puncture Site R BRACH Blood Gas Ventilator Setting NO Test 10/19/16 05:25 10/19/16 06:28 Range/Units Lactic Acid Level 1.1 0.5-2.0 MMOL/L Kadeem Test YES-POS Arterial Blood Base Excess -1.3 -2.5-2.5 MMOL/L Arterial Blood HCO3 25 23-27 MMOL/L Arterial Blood Oxygen Saturation 97 94-100 % Arterial Blood Partial Pressure CO2 47 H 35-45 MMHG Arterial Blood Partial Pressure O2 94 H 79-93 MMHG Arterial Blood Total CO2 26.2 21.0-31.0 MMOL/L Arterial Blood pH 7.34 *L 7.37-7.43 Blood Gas Inspired Oxygen 60% Blood Gas Patient Temperature 98.3 Blood Gas Puncture Site R RAD Blood Gas Ventilator Setting NO My Orders Orders-DARIN BROWNE DO Albuterol/Ipra Inhalation Soln (Duoneb I (10/19/16 02:40) Accucheck Stat ONCE (10/19/16 02:50) Saline Lock/Iv-Start (10/19/16 02:50) O2 (10/19/16 02:50) Monitor-Rhythm Ecg Trace Only (10/19/16 02:50) Cbc With Automated Diff (10/19/16 02:50) Comprehensive Metabolic Panel (10/19/16 02:50) Protime With Inr (10/19/16 02:50) Partial Thromboplastin Time (10/19/16 02:50) Chest 1 View, Ap/Pa Only (10/19/16 02:50) Albuterol/Ipra Inhalation Soln (Duoneb I (10/19/16 03:00) Svn Sm Volume Nebulizer Rt-Rfs (10/19/16 02:50) D50w (Emergency) Syringe (Dextrose 50% 5 (10/19/16 03:00) Arterial Blood Gas (10/19/16 04:35) D50w (Emergency) Syringe (Dextrose 50% 5 (10/19/16 02:47) D50w (Emergency) Syringe (Dextrose 50% 5 (10/19/16 03:45) D5 1/2 Ns 1000 Ml Iv Solution (Dextrose (10/19/16 03:45) Accucheck Stat ONCE (10/19/16 03:55) Furosemide Injection (Lasix Injection) (10/19/16 04:00) Catheter(Urinary) Insert & Ass 03,15 (10/19/16 03:55) BNP (10/19/16 03:57) Troponin I (10/19/16 03:57) Lactic Acid Analyzer (10/19/16 04:46) Blood Culture (10/19/16 04:46) Accucheck Stat ONCE (10/19/16 04:52) Medications Given in ED Current Medications Medications Dose Ordered Sig/Nidhi Route Start Time Stop Time Status Last Admin Dose Admin Dextrose 50 ml ONCE ONCE IV 10/19/16 03:45 10/19/16 03:46 DC 10/19/16 03:39 50 ML Dextrose 100 ml ONCE ONCE IV 10/19/16 03:00 10/19/16 03:01 DC 10/19/16 02:56 100 ML Furosemide 80 mg ONCE ONCE IVP 10/19/16 04:00 10/19/16 04:01 DC 10/19/16 04:16 80 MG Vital Signs/I&O Vital Sign - Last 12Hours 10/19/16 10/19/16 10/19/16 10/19/16 02:47 02:53 03:00 04:47 Temp 97.0 Pulse 83 72 Resp 28 23 B/P 117/63 Pulse Ox 90 91 90 100 O2 Delivery Nonrebreather Non Rebreather Nasal Cannula O2 Flow Rate 15 15 15 60 10/19/16 10/19/16 10/19/16 10/19/16 05:23 05:30 06:14 06:29 Temp 97.0 98.3 Pulse 66 64 65 63 Resp 20 22 22 22 B/P 103/67 94/58 Pulse Ox 100 97 97 100 O2 Delivery NIV/CPAP NIV Bilevel NIV Bilevel O2 Flow Rate 60.00 60.00 60.00 Blood Pressure Mean: 81 Point of Care Testing Finger Stick Blood Glucose: 62 Progress Note : Progress Note PT GIVEN MULTIPLE DOSES OF D50 AND STARTED ON D5 1/ NS MULTIPLE ATTEMPTS TO OBTAIN ABG'S UNSUCCESSFUL. PT DID NOT REACT WITH IV STICKS, ABG ATTEMPTS OR ADLER INSERTION, BUT DID WAKE WITH SUCTIONING BOTH TIMES O2 SATS UP TO LOW 90'S ON O2 VIA MASK 0410--RT SUCTIONING PT AGAIN AND AFTER 4TH DOSE OF D50 PT SUDDENLY AWAKE, TALKING, AND STATES HE WOULD AGREE THAT HE GOT CHOKED ON O.J. THEN PT QUICKLY STARTED TALKING NONSENSICAL AND WENT BACK TO SLEEP. EASILY AWAKENED BUT TALKING NON-SENSICAL. PT IS FOLLOWING SIMPLE COMMANDS. THEN SLEPT FOR REMAINDER OF ER STAY LUNG SOUNDS IMPROVED AFTER THIS SUCTIONING AND "GURGLING" / AIRWAY NOISE HAS ESSENTIALLY RESOLVED. REPEAT ACCUCHECK 267 ACCUCHECK 201 AT TIME OF ADMIT PT PLACED ON CPAP AND O2 SATS IMPROVED TO 98% NO FURTHER DETERIORATION IN PT'S CONDITION DURING ER STAY Diagnostic Imaging Comments CXR--CHF, PENDING RADIOLOGIST REVIEW Departure Communication Progress Notes 0440--SPOKE WITH DR. MEJIAS, ACCEPTS PT FOR ADMIT. Impression Impression: Primary Impression: Acute on chronic respiratory failure Additional Impressions: Hypoglycemia associated with diabetes CHF (congestive heart failure) Chronic renal insufficiency Aspiration into airway RECENT PNEUMONIA IDDM (insulin dependent diabetes mellitus) IDDM Disposition: ADMITTED INPATIENT Condition: Improved Departure-Patient Inst. Referrals: ASCENCION CADENA MD (PCP/Family) Primary Care Physician DARIN BROWNE DO Oct 19, 2016 03:22
[2016-10-19 03:24] LABS: BILIRUBIN,TOTAL 0.6 MG/DL (0.1-1.0); CALCIUM 9.6 MG/DL (8.5-10.1); CREATININE SERUM 1.94 MG/DL (0.60-1.30); POTASSIUM 4.5 MMOL/L (3.6-5.0); TOTAL PROTEIN 5.6 G/DL (6.4-8.2)
[2016-10-19] MEDS ORDERED: D5 1/2 NS 1000 ML IV SOLUTION 1,000 ML IV SCH ×3 (03:45→06:30)
[2016-10-19] MEDS ORDERED: FUROSEMIDE 40 MG/4 ML INJ (LASIX) IVP ONE (04:00)
[2016-10-19 04:55] LABS: ABG BASE EXCESS -1.4 MMOL/L (-2.5-2.5); ABG HCO3 28 MMOL/L (23-27); ABG OXYGEN SATURATION 48 % (94-100); ABG PCO2 68 MMHG (35-45); ABG TCO2 29.8 MMOL/L (21.0-31.0)
[2016-10-19 05:02] LABS: ABG PH 7.22 (7.37-7.43); ABG PO2 31 MMHG (79-93); ALLENS TEST YES-POS; PATIENT TEMP 96.2
[2016-10-19] MEDS ORDERED: RT-ALBUTEROL/IPRATROPIUM 3 ML (DUONEB) VIAL INH PRN (05:45)
[2016-10-19] MEDS ORDERED: RT-ALBUTEROL/IPRATROPIUM 3 ML (DUONEB) VIAL INH SCH ×2 (06:00→11:00)
[2016-10-19] MEDS ORDERED: PIPERACILLIN/TAZO 4.5 GM VIAL (ZOSYN) IV ONE ×2 (06:10→20:27)
[2016-10-19] MEDS ORDERED: NORMAL SALINE (BAXTER MINI) 100 ML IV ONE ×2 (06:11→20:27)
[2016-10-19] MEDS ORDERED: LEVOFLOXACIN 750 MG/150 ML IV 150 ML IV ONE ×2 (06:12→06:30)
[2016-10-19] MEDS ORDERED: PIPERACILLIN SODIUM/TAZOBACTAM 4.5 GM in NORMAL SALINE (BAXTER MINI) 100 ML IV ONE (06:30)
[2016-10-19] MEDS ORDERED: VANCOMYCIN 1 GM/NS 250 ML IVPB IV SCH ×2 (06:30)
[2016-10-19 06:34] LABS: ABG BASE EXCESS -1.3 MMOL/L (-2.5-2.5); ABG HCO3 25 MMOL/L (23-27); ABG OXYGEN SATURATION 97 % (94-100); ABG PCO2 47 MMHG (35-45); ABG PO2 94 MMHG (79-93); ABG TCO2 26.2 MMOL/L (21.0-31.0); ALLENS TEST YES-POS
[2016-10-19 06:35] LABS: PATIENT TEMP 98.3
[2016-10-19 06:36] LABS: ABG PH 7.34 (7.37-7.43)
[2016-10-19] MEDS: inSUlin (REGULAR) HUMAN 1 UNIT/0.01 ML (CHARGE PER UNIT) SC SCH ×8 (07:00→20:57)
[2016-10-19] MEDS ORDERED: VANCOMYCIN IV ADD-VANTAGE 1,000 MG in SODIUM CHLORIDE (ADD-VANTAGE) 250 ML IV SCH ×2 (08:00→20:00)
[2016-10-19] MEDS ORDERED: VANCOMYCIN IV ADD-VANTAGE 1,000 MG in SODIUM CHLORIDE (ADD-VANTAGE) 250 ML IV ONE (08:00)
[2016-10-19] MEDS ORDERED: inSUlin (REGULAR) HUMAN 1 UNIT/0.01 ML (CHARGE PER UNIT) SC SCH (08:00)
--- NOTE | 2016-10-19 08:15 | Diagnostic Imaging Report ---
INDICATION: Hypoglycemia and hypoxia. Comparison made with prior examination from 10/16/16. FINDINGS: There's cardiomegaly. There is some venous congestion. There is no pleural effusion or pneumothorax. The mediastinum is unremarkable. IMPRESSION: Cardiomegaly and moderate central pulmonary venous congestion. Dictated by: Dictated on workstation # [id number]
[2016-10-19] MEDS ORDERED: VANCOMYCIN 2000 MG/NS 500 ML IVPB IV NR ×2 (09:00)
[2016-10-19] MEDS ORDERED: CATHETER FLUSH 10 ML SYR IV PRN (09:45)
--- NOTE | 2016-10-19 09:57 | History & Physical-Hospitalist ---
HPI History of Present Illness: HPI/Chief Complaint this is a 80-year-old white male just discharged yesterday after a prolonged hospitalization for respiratory failure congestive heart failure and declining physical status. The patient had been discharged via [facility] without complication. Last night he was given a full dose of his Humalog without having eaten an adequate dinner. In the middle the night he was found to be unresponsive. Nursing staff attempted to give him orange juice by mouth. Unfortunately he aspirated the orange juice and was brought to the emergency room in acute respiratory failure with hypoglycemia.the patient was given multiple doses of D50 with yarsanism of his blood sugar. He however developed mild congestive failure and respiratory insufficiency secondary to aspiration. He has been maintained on BiPAP overnight and his O2 sats on 40 percent are in the mid 90s. He is awake and alert at the time of my interview. Source: patient Exam Limitations: clinical condition Date Seen 10/19/16 Attending Physician Megan Matthews MD PCP Ru Gomez MD Referring Physician Date of Admission Oct 19, 2016 at 04:40 Home Medications & Allergies Home Medications Reviewed patient Home Medication Reconciliation Form Allergies Coded Allergies: sulfamethoxazole (Verified Allergy, Mild, RASH, 10/31/15) trimethoprim (Verified Allergy, Mild, RASH, 10/31/15) Past Zwglzqs-Hcprjz-Ivnzme Hx Patient Social History Employed/Student: retired Alcohol Use: Denies Use Recreational Drug Use: No Smoking Status: Former Smoker Former smoker/When Quit: Apr 24, 2005 Type Used: Cigarettes Physical Abuse Screen: No Sexual Abuse: No Recent Foreign Travel: No Contact w/other who traveled: No Recent Hopitalizations: Yes (Pneumonia 08/2016) Recent Infectious Disease Expo: No Immunizations Up To Date Tetanus Booster (TDap): Less than 5yrs Date of Pneumonia Vaccine: Aug 28, 2016 Date of Influenza Vaccine: Aug 28, 2016 Seasonal Allergies Seasonal Allergies: No Surgeries HX Surgeries: Yes (CATARACTS, CARPAL TUNNEL, BILAT.THUMBS) Surgeries: Eye Surgery, Orthopedic, Tonsillectomy Respiratory Hx Respiratory Disorders: Yes (CPAP AT HS; ACUTE ON CHRONIC RESPIRATORY FAILURE ) Cardiovascular Hx Cardiovascular Disorders: Yes Cardiac Disorders: Atrial Fibrillation, High Cholesterol, Hypertension Neurological Hx Neurological Disorders: Yes (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) Neurological Disorders: Neuropathy Reproductive System Hx Reproductive Disorders: No Sexually Transmitted Disease: No HIV/AIDS: No Genitourinary Hx Genitourinary Disorders: Yes Genitourinary Disorders: Benign Prostatic Hyperpl Gastrointestinal Hx Gastrointestinal Disorders: No Musculoskeletal Hx Musculoskeletal Disorders: No Endocrine Hx Endocrine Disorders: Yes Endocrine Disorders: Diabetes, Insulin dep HEENT HX ENT Disorders: Yes HEENT Disorders: Cataract, Macular Degeneration Hearing Impairment: Hard of Hearing Cancer Hx Cancer: Yes (BASAL CELL CARCINOMA) Cancer: Skin Psychosocial Hx Psychiatric Problems: No Integumentary HX Skin/Integumentary Disorder: Yes (CELLULITIS IN LEFT KNEE EARLY OCTOBER 2013) Skin/Integumentary Disorders: Recent Skin Changes Blood Transfusions Hx Blood Disorders: No Adverse Reaction to a Blood Tr: No Family Medical History Significant Family History: Cancer Family Hx: COPD 19 FATHER Colon cancer 19 MOTHER Diabetes mellitus G8 SISTER Drug abuse G8 SISTER Lung cancer 19 FATHER Polio G8 BROTHER Sarcoidosis G8 BROTHER Review of Systems Constitutional: weakness EENTM: no symptoms reported Respiratory: cough short of breath Cardiovascular: no symptoms reported Gastrointestinal: no symptoms reported Genitourinary: hematuria Musculoskeletal: muscle weakness Skin: other (trauma to his toes) Psychiatric/Neurological: Depressed Physical Exam Physical Exam Vital Signs Vital Sign - Last 12Hours 10/19/16 10/19/16 02:47 03:00 Temp 97.0 Pulse 83 Resp 28 B/P 117/63 Pulse Ox 90 O2 Delivery Nonrebreather O2 Flow Rate 15 Capillary Refill : Less Than 3 Seconds General Appearance: Mild Distress HEENT: Normal ENT Inspection Neck: Supple Respiratory: Decreased Breath Sounds Rales Cardiovascular: Irregularly Irregular Gastrointestinal: Abnormal Bowel Sounds Distended Extremity: Pedal Edema Neurologic/Psychiatric: Alert Skin: Normal Color Warm/Dry Lymphatic: No Adenopathy Results Results/Procedures Lab Laboratory Tests 10/19/16 02:50 Assessment/Plan Admission Diagnosis 1. acute respiratory failure secondary to aspiration 2. Hypoglycemia resolved 3. Chronic respiratory failure secondary to hypercapnia 4. Acute on chronic congestive heart failure secondary to A. fib and diastolic dysfunction 5. Hematuria- having been off aspirin and Coumadin. Will use Lovenox cautiously 6. Chronic atrial fibrillation good rate control 7. Morbid obesity 8. Type II diabetes labile in nature 9. Hypoglycemia resolved 10. Debility Plan is to admit follow closely, reestablish change in insulin, monitor respiratory status, and physical therapy Clinical Quality Measures DVT/VTE Risk/Contraindication: Risk Factor Score Per Nursin RFS Level Per Nursing on Admit: 4+=Very High MEGAN MATTHEWS MD Oct 19, 2016 09:57
--- NOTE | 2016-10-19 10:25 | Occupational Therapy Eval ---
OT Evaluation-General/PLF Medical Diagnosis Admission Date Oct 19, 2016 at 04:40 Medical Diagnosis: Respiratory failure, hypolgelcemia Onset Date: Oct 19, 2016 Therapy Diagnosis Therapy Diagnosis: weakness, decreased self care Height/Weight Height (Feet): 5 Height (Inches): 8.00 Weight (Pounds): 288 Weight (Ounces): 0.8 Precautions Precautions/Isolations: Fall Prevention, Standard Precautions Referral Physician: Byron Medical History Pertinent Medical History: Atrial Fib, COPD, DM, HTN, Macular Degenertion, Neuropathy, PVD, Smoking Additional Medical History carpal tunnel, sleep apnea, high cholesterol, BPH, cataracts, basal cell carcinoma Current History Pt was discharged from hospital yesterday to [facility] and re-admitted with hypoglycemia and respiratory failure. Reviewed History: Yes Social History Home: Single Level Current Living Status: Spouse Entry Into Home: Stairs With Railing Steps Into Home: 4 ADL-Prior Level of Function ADL PLOF Comments Prior to pt's hospital admission on 10/13, pt was at home with spouse and was receiving assist with LE dressing as needed. Pt states he was able to complete other ADLs. Used a cane for most mobility. Pt states he has a walker, but does not use frequently. Pt has decreased ability to feed self secondary to tremors.Pt states he has wrist weights that he sometimes wears to decreased tremors and improve feeding ability DME/Equipment: Bath Chair, Grab Bars, Sock Aid, Tall Toilet DME/Equipment Comments shoe funnel Drive Self: No OT Current Status Subjective RN states pt okay for therapy at this time. Pt alert in bed with bi-pap in place. Pt agrees to therapy. No c/o pain during session. Pt c/o feeling weak. Mental Status/Objective Patient Orientation: Person, Place Attachments: Soriano Catheter, IV, Oxygen Current Hand Dominance: Right Upper Extremity ROM Grossly WFL Upper Extremity Coordination Decreased secondary to tremors Upper Extremity Sensation Impaired Upper Extremity Strength Grossly 3+/5 ADL-Treatment ADL-Current UE assessment completed with pt in bed. Pt unable to tolerate full ADL assessment at this time. Will complete as able. Education provided regarding role of OT and plan of care. Pt states understanding of education and is agreeable to participate in therapy. Pt in bed with RT present after session. Functional Brutus Measure 0=Not Assessed/NA 4=Minimal Assistance 1=Total Assistance 5=Supervision or Setup 2=Maximal Assistance 6=Modified Brutus 3=Moderate Assistance 7=Complete IndependenceIRFPAI Quality Coding Scale 6 Independent with activity with or without an assistive device 5 Patient requires set up or clean up by helper. Patient completes activity by themselves 4 Supervision or touching assist (CGA). [place] provide cues , steadying assist 3 The helper provides less than half the effort to complete the activity 2 The helper provides more than half the effort to complete the activity 1 Dependent. The helper does all the effort to complete an activity 7 Patient refused to complete or attempt activity 9 The patient did not perform the activity before the current illness or injury 88 Not attempted due to Medical conditions or safety concerns Education OT Patient Education: Rehab process Teaching Recipient: Patient Teaching Methods: Discussion OT Short Term Goals Short Term Goals 1=Demonstrate adherence to instructed precautions during ADL tasks. 2=Patient will verbalize/demonstrate understanding of assistive devices/ modifications for ADL. 3=Patient will improve strength/tolerance for activity to enable patient to perform ADL's. OT Long-Term Goals Long-Term Goals Time Frame: November 02, 2016 Eating (FIM): 6 Grooming(FIM): 6 Upper Body Dressing(FIM): 5 Lower Body Dressing(FIM): 4 Toileting(FIM): 4 Toilet/Commode Transfer(FIM): 4 Additional Goals: 1-Demonstrate ADL Tasks, 2-Verbalize Understanding, 3- ImproveStrength/Amanda 1=Demonstrate adherence to instructed precautions during ADL tasks. 2=Patient will verbalize/demonstrate understanding of assistive devices/ modifications for ADL. 3=Patient will improve strength/tolerance for activity to enable patient to perform ADL's. OT Education/Plan Problem List/Assessment Assessment: Decreased Activ Tolerance, Decreased UE Strength, Dependent Transfers, Impaired Coordination, Impaired Funct Balance, Impaired Self-Care Skills Pt demonstrates impaired strength, activity tolerance, mobility and ADL functioning. Pt to benefit from skilled OT intervention for ADL training, transfers, strengthening, adaptive equipment training as needed and safety education to maximize level of function and allow safe discharge plan. Discharge Recommendations Plan/Recommendations: Continue POC Treatment Plan/Plan of Care Treatment,Training & Education: Yes Patient would benefit from OT for education, treatment and training to promote independence in ADL's, mobility, safety and/or upper extremity function for ADL' s. Plan of Care: ADL Retraining, Functional Mobility, UE Funct Exercise/Act Treatment Duration: Nov 02, 2016 # of days/week 5 Visits Per Week: 5 Agreement: Yes Rehab Potential: Fair Time/GCodes Start Time: 10:00 Stop Time: 10:16 Total Time Billed (hr/min): 16 Billed Treatment Time 1 visit, [facility](16minutes) AROLDO HORTON OT Oct 19, 2016 10:25
--- NOTE | 2016-10-19 10:56 | Consultation-Cardiology ---
HPI-Cardiology Cardiology Consultation Date of Consultation 10/19/16 Date of Admission Indication: congestive heart failure HPI 80-year-old gentleman with history of coronary artery disease, left ventricular diastolic dysfunction, admitted for respiratory failure and COPD exacerbation and pneumonia, treated and discharged to half-way. Apparently overnight he became hypoglycemic. He was given orange juice and aspirated. Came into the emergency room required fluid resuscitation and multiple injections of D50. Currently still short of breath, on BiPAP. Denied any chest pain, still shortness of breath, does not recall the events of last night. Still having significant pedal edema Home Medications & Allergies Allergies: Coded Allergies: sulfamethoxazole (Verified Allergy, Mild, RASH, 10/31/15) trimethoprim (Verified Allergy, Mild, RASH, 10/31/15) Home Medication List Reviewed: Yes CLC-Nxzfan-Avrysj Hx Patient Social History Marital Status: Employed/Student: retired Alcohol Use: Denies Use Recreational Drug Use: No Smoking Status: Former Smoker Former smoker/When Quit: Apr 24, 2005 Type Used: Cigarettes Recent Foreign Travel: No Recent Infectious Disease Expo: No Recent Hopitalizations: Yes (Pneumonia 08/2016) Physical Abuse Screen: No Sexual Abuse: No Immunizations Up To Date Tetanus Booster (TDap): Less than 5yrs Date of Pneumonia Vaccine: Aug 28, 2016 Date of Influenza Vaccine: Aug 28, 2016 Past Medical History past medical history as discussed below Family Medical History Significant Family History: Cancer Family History: 19 FATHER Lung cancer COPD 19 MOTHER Colon cancer G8 BROTHER Polio Sarcoidosis G8 SISTER Drug abuse Diabetes mellitus Constitutional: see HPI malaise weakness weight gain EENTM: no symptoms reported see HPI Respiratory: see HPI cough dyspnea on exertion orthopnea short of breath Cardiovascular: see HPINo chest pain, edemaNo Hx of Intervention, No palpitations, No syncope, No vascular heart diseas, No other Gastrointestinal: see HPI Genitourinary: see HPI Musculoskeletal: see HPI joint swelling muscle weakness Skin: see HPI change in color Psychiatric/Neurological: No Symptoms Reported See HPI Anxiety Depressed Reviewed Test Results Reviewed Test Results Lab Laboratory Tests Test 10/19/16 02:50 10/19/16 02:52 10/19/16 02:53 10/19/16 03:16 Range/Units Activated Partial Thromboplast Time 46 H 24-35 SEC Alanine Aminotransferase (ALT/SGPT) 29 0-55 U/L Albumin 3.0 L 3.2-4.5 G/DL Alkaline Phosphatase 58 40-136 U/L Anion Gap 7 5-14 MMOL/L Aspartate Amino Transf (AST/SGOT) 26 5-34 U/L BUN/Creatinine Ratio 20 Basophils # (Auto) 0.0 0.0-0.1 10^3/uL Basophils (%) (Auto) 0 0-10 % Blood Urea Nitrogen 39 H 7-18 MG/DL Calcium Level 9.6 8.5-10.1 MG/DL Carbon Dioxide Level 25 21-32 MMOL/L Chloride Level 105 98-107 MMOL/L Creatinine 1.94 H 0.60-1.30 MG/DL Eosinophils # (Auto) 0.2 0.0-0.3 10^3/uL Eosinophils (%) (Auto) 1 0-10 % Estimat Glomerular Filtration Rate 34 Glucose Level 58 *L 70-105 MG/DL Hematocrit 32 L 40-54 % Hemoglobin 10.9 L 13.3-17.7 G/DL INR Comment 1.2 0.8-1.4 Lymphocytes # (Auto) 0.9 L 1.0-4.0 X 10^3 Lymphocytes (%) (Auto) 9 L 12-44 % Mean Corpuscular Hemoglobin 32 25-34 PG Mean Corpuscular Hemoglobin Concent 35 32-36 G/DL Mean Corpuscular Volume 93 80-99 FL Mean Platelet Volume 10.2 7.4-10.4 FL Monocytes # (Auto) 2.1 H 0.0-1.0 X 10^3 Monocytes (%) (Auto) 17 H 0-12 % Neutrophils # (Auto) 8.7 H 1.8-7.8 X 10^3 Neutrophils (%) (Auto) 73 42-75 % Platelet Count 131 130-400 10^3/uL Potassium Level 4.5 3.6-5.0 MMOL/L Prothrombin Time 14.9 H 12.2-14.7 SEC Red Blood Count 3.39 L 4.35-5.85 10^6/uL Red Cell Distribution Width 14.2 10.0-14.5 % Sodium Level 137 135-145 MMOL/L Total Bilirubin 0.6 0.1-1.0 MG/DL Total Protein 5.6 L 6.4-8.2 G/DL White Blood Count 11.9 H 4.3-11.0 10^3/uL B-Type Natriuretic Peptide 208.9 H <100.0 PG/ML Troponin I < 0.30 <0.30 NG/ML Glucometer 62 L 183 H 70-110 MG/DL Test 10/19/16 03:35 10/19/16 04:21 10/19/16 04:35 10/19/16 05:13 Range/Units Glucometer 124 H 269 H 201 H 70-110 MG/DL Kadeem Test YES-POS Arterial Blood Base Excess -1.4 -2.5-2.5 MMOL/L Arterial Blood HCO3 28 H 23-27 MMOL/L Arterial Blood Oxygen Saturation 48 L 94-100 % Arterial Blood Partial Pressure CO2 68 H 35-45 MMHG Arterial Blood Partial Pressure O2 31 *L 79-93 MMHG Arterial Blood Total CO2 29.8 21.0-31.0 MMOL/L Arterial Blood pH 7.22 *L 7.37-7.43 Blood Gas Inspired Oxygen 60%FI02 Blood Gas Patient Temperature 96.2 Blood Gas Puncture Site R BRACH Blood Gas Ventilator Setting NO Test 10/19/16 05:25 10/19/16 06:28 10/19/16 06:29 10/19/16 07:05 Range/Units Lactic Acid Level 1.1 0.5-2.0 MMOL/L Kadeem Test YES-POS Arterial Blood Base Excess -1.3 -2.5-2.5 MMOL/L Arterial Blood HCO3 25 23-27 MMOL/L Arterial Blood Oxygen Saturation 97 94-100 % Arterial Blood Partial Pressure CO2 47 H 35-45 MMHG Arterial Blood Partial Pressure O2 94 H 79-93 MMHG Arterial Blood Total CO2 26.2 21.0-31.0 MMOL/L Arterial Blood pH 7.34 *L 7.37-7.43 Blood Gas Inspired Oxygen 60% Blood Gas Patient Temperature 98.3 Blood Gas Puncture Site R RAD Blood Gas Ventilator Setting NO Glucometer 160 H 165 H 70-110 MG/DL Test 10/19/16 07:54 10/19/16 09:14 Range/Units Glucometer 176 H 205 H 70-110 MG/DL Physical Exam Vital Signs Vital Sign - Last 12Hours 10/19/16 10/19/16 02:47 03:00 Temp 97.0 Pulse 83 Resp 28 B/P 117/63 Pulse Ox 90 O2 Delivery Nonrebreather O2 Flow Rate 15 Capillary Refill : Less Than 3 Seconds General Appearance: WD/WN Moderate Distress Eyes: Bilateral Eye EOMI, Bilateral Eye Normal Inspection, Bilateral Eye PERRL HEENT: PERRL/EOMI TMs Normal Normal ENT Inspection Pharynx Normal Neck: Full Range of Motion Normal Inspection Non Tender Supple Respiratory: Chest Non Tender No Accessory Muscle Use No Respiratory Distress Crackles Decreased Breath Sounds Expiration Rales Cardiovascular: No Gallop No JVD Systolic Murmur Other (irregular rhythm, +3 pedal edema, systolic murmur at the left sternal border) Gastrointestinal: Normal Bowel Sounds No Organomegaly No Pulsatile Mass Non Tender Soft Back: Normal Inspection No CVA Tenderness No Vertebral Tenderness Extremity: Normal Inspection Non Tender No Calf Tenderness Pedal Edema Slow Capillary Refill Swelling Neurologic/Psychiatric: Alert Oriented x3 Abnormal Gait Motor Weakness Skin: Normal Color Warm/Dry Lymphatic: No Adenopathy A/P-Cardiology Admission Diagnosis Change in mental status Hypoglycemia COPD Congestive heart failure, acute on chronic left ventricular diastolic dysfunction, hypertensive heart disease Acute respiratory failure Assessment/Plan Status post change of mental status and unresponsiveness secondary to severe hypoglycemia, improved at this time. Managed by primary care physician. Continue to monitor Status post acute respiratory failure, worsened after the episode of hypoglycemia, currently on BiPAP being weaned off. Complaining of generalized weakness. Severe COPD, sleep apnea, using C Pap at home, generalized weakness, severe dyspnea with exertion, was discharged from the hospital to half-way for physical therapy and exercise. Permanent atrial fibrillation, Controlled rate, continue on current medication monitor heart rate. [id number] score is 4, yearly risk of stroke without oral anticoagulation is 4 percent. Coumadin was on hold, secondary to hematuria. I will restart Coumadin and monitor his tolerance and response Hypertension, restart medication monitor blood pressure Diastolic dysfunction, acute on chronic left ventricular diastolic dysfunction, hypertensive heart disease- most recent 2D Echo 10/16/16 revealed EF 60%, acute on chronic left ventricular diastolic dysfunction. Hypertensive heart disease, continue on current medications and monitor as an outpatient. Questionable coronary artery disease, patient has multiple risk factors, has been refusing to have a stress test. Peripheral vascular disease, patient had RANULFO done in February 2015, it was 0.54 on the right, 0.77 on the left, patient had angiogram with complex intervention with angioplasty to the right anterior tibial artery, the right peroneal artery with good results with Dr. Gutiérrez. 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 Patient was staged for angiogram and intervention of the left leg then Dr. Gutiérrez has left. Most recent RANULFO done October 2015 within normal limits. Continue to monitor. Chronic venous insufficiency, seen by Dr. Castro in [place], status post ablation by Dr. Castro on the right side. Acute on chronic renal failure, continue on diuretics. Monitor renal function Hyperlipidemia, controlled. Continue to monitor Diabetes mellitus, status post episode of severe hypoglycemia, better at this time, managed by primary care physician Diabetic neuropathy. Mild bilateral carotid stenosis, last ultrasound was done in March 2016. Continue to monitor. Gross hematuria, reporting improvement, refused urology consultation Clinical Quality Measures DVT/VTE Risk/Contraindication: Risk Factor Score Per Nursin RFS Level Per Nursing on Admit: 4+=Very High KEELEY ROSSI MD Oct 19, 2016 10:56
[2016-10-19] MEDS: LOSARTAN 50 MG (COZAAR) TAB PO SCH (10:57)
[2016-10-19] MEDS: FUROSEMIDE 40 MG/4 ML INJ (LASIX) IV SCH ×2 (10:57→16:53)
[2016-10-19] MEDS: ASPIRIN E.C. 81 MG (ECOTRIN) TAB PO SCH (10:57)
[2016-10-19] MEDS: DILTIAZEM 240 MG (CARDIZEM CD) CAP PO SCH (10:58)
[2016-10-19] MEDS: MAGNESIUM OXIDE (MAG-OX)400 MG TAB PO SCH (10:58)
[2016-10-19] MEDS: ATENOLOL 25 MG (TENORMIN) TAB PO SCH (10:58)
[2016-10-19] MEDS: KCL 20 MEQ TAB (K-DUR) PO SCH ×2 (10:58→16:54)
[2016-10-19] MEDS ORDERED: PIPER/TAZOB 4.5 GM/NS 50 ML IVPB IV SCH ×2 (11:00)
[2016-10-19] MEDS: ENOXAPARIN 40 MG/0.4 ML (LOVENOX) SYR SQ SCH (11:42)
[2016-10-19] MEDS ORDERED: PIPERACILLIN SODIUM/TAZOBACTAM 4.5 GM in NORMAL SALINE (BAXTER MINI) 100 ML IV SCH (12:30)
--- NOTE | 2016-10-19 12:30 | Physical Therapy Evaluation ---
PT Evaluation-General Medical Diagnosis Admission Date Oct 19, 2016 at 04:40 Medical Diagnosis: Respiratory failure, hypolgelcemia Onset Date: Oct 19, 2016 Therapy Diagnosis Therapy Diagnosis: weakness; abn gait Height/Weight Height (Feet): 5 Height (Inches): 8.00 Weight (Pounds): 288 Weight (Ounces): 0.8 Precautions Precautions/Isolations: Fall Prevention, Standard Precautions Referral Physician: Byron Reason for Referral: Evaluation/Treatment Medical History Pertinent Medical History: Atrial Fib, COPD, DM, HTN, Macular Degenertion, Neuropathy, PVD, Smoking Current History Pt admitted with ARF and hypoglyecemia; pt had just left hospital yesterday and returned in the night with Respiratory failure and low blood sugar. Reviewed History: Yes Social History Home: Single Level Current Living Status: Spouse Entry Into Home: Stairs With Railing PT Steps Into Home: 4 Pt had discharged to [facility] yesterday but unsure where he plans to discharge to after this stay. Prior/Core FIM Prior Level of Function Functional Potter Measure 0=Not Assessed/NA 4=Minimal Assistance 1=Total Assistance 5=Supervision or Setup 2=Maximal Assistance 6=Modified Potter 3=Moderate Assistance 7=Complete Potter Unsure of prior function; pt likely needed assist most recently with all mobility due to discharge to hospital. Pt reports he did use a cane. PT Evaluation-Current Subjective Agrees to PT. Wants to get up to the chair. Objective Patient Orientation: Person, Place, Time, Situation ROM/Strength ROM Lower Extremities WFL Strenght Lower Extremities grossly 3/5 throughout; pt able to stand Integumentary/Posture Integumentary refer to nursing notes; B LE edema noted. Bowel Incontinence: No Bladder Incontinence: Soriano Cath Posture rounded shoulders Neuromuscular (Tone, Coordination, Reflexes) intact for age and functional Sensory Hand Dominance: Right Sensation Right Lower Extremit: Impaired Sensation Left Lower Extremity: Impaired Transfers Functional Potter Measure 0=Not Assessed/NA 4=Minimal Assistance 1=Total Assistance 5=Supervision or Setup 2=Maximal Assistance 6=Modified Potter 3=Moderate Assistance 7=Complete Potter Transfers (B, C, W/C) (FIM): 2 Supine to/from Sit: 2 Sit to/from Stand: 3 max assist with bed mobility and mod assist to stand. SPT with FWW with mod assist of 2; pt plopped into chair; needed assist to partially stand to situate in chair. In chair post treatment with needs met. Gait Mode of Locomotion: Walk Comments/Gait Description gait not assessed this visit. Balance Sitting Static: Fair Sitting Dynamic: Fair Standing Static: Fair Standing Dynamic: Fair Assessment/Needs Pt presents post recent hospitalization with return due to low blood sugar and acute resp failure. He is alert and oriented today and willing to participate. Pt presents with the need for much assist with bed mobility and transfers as well as LE weakness. He has difficutly with standing and limited functional activity tolerance with balance disturbances as he attempts to transfer. His presentation at this time is unstable due to fluctuating blood sugar and respiratory concerns. He will benefit from skilled PT services to address functional mobility and strength. Rehab Potential: Guarded PT Teacher Kindergarten Goals Teacher Kindergarten Goals PT Teacher Kindergarten Goals Time Frame: Oct 25, 2016 Transfers (B,C,W/C) (FIM): 6 Gait (FIM): 5 Distance: household distance Gait Assistive Device: FWW PT Plan Problem List Problem List: Activity Tolerance, Functional Strength, Safety, Balance, Gait, Transfer, Bed Mobility Treatment/Plan Treatment Plan: Continue Plan of Care Treatment Plan: Bed Mobility, Education, Functional Activity Amanda, Functional Strength, Gait, Safety, Therapeutic Exercise, Transfers Treatment Duration: Oct 25, 2016 # of days/week 5-6 Visits Per Week: 5-6 Pt/Family Agrees w/Plan: Yes Safety Risks/Education Patient Education: Transfer Techniques, Safety Issues Teaching Recipient: Patient Teaching Methods: Discussion Response to Teaching: Reinforcement Needed Time/GCodes Time In: 1200 Time Out: 1225 Total Billed Treatment Time: 25 Total Billed Treatment visit [facility] 25 PIYUSH FAYE PT Oct 19, 2016 12:29
[2016-10-19] MEDS: GABAPENTIN 300 MG (NEURONTIN) CAP PO SCH ×2 (13:20→20:49)
[2016-10-19] MEDS: PIPER/TAZOB 4.5 GM/NS 50 ML IVPB IV SCH ×4 (13:21→20:49)
[2016-10-19] MEDS: RT-ALBUTEROL/IPRATROPIUM 3 ML (DUONEB) VIAL INH SCH ×3 (14:29→21:48)
[2016-10-19] MEDS: NIACIN 500 MG TABLET PO SCH (16:53)
[2016-10-19] MEDS ORDERED: warFARin 5 MG (COUMADIN) TAB PO SCH (18:00)
[2016-10-19] MEDS ORDERED: VANCOMYCIN 1 GM ADD-VANTAGE VIAL IV ONE (19:36)
[2016-10-19] MEDS ORDERED: SODIUM CHLORIDE (ADD-VANTAGE) 250 ML ONE (19:36)
[2016-10-19] MEDS: VANCOMYCIN 1 GM/NS 250 ML IVPB IV SCH ×2 (19:45)
[2016-10-19] MEDS: ALFUZOSIN HCL 10 MG TAB (UROXATRAL) PO SCH (20:49)
[2016-10-20] VITALS (24 sets, daily range): BP systolic 83–134; BP diastolic 23–76
[2016-10-20] MEDS ORDERED: ACETAMINOPHEN 325 MG TABLET/CAPLET (TYLENOL) ONE (00:13)
[2016-10-20] MEDS ORDERED: ACETAMINOPHEN 325 MG TABLET/CAPLET (TYLENOL) PO ONE (00:30)
[2016-10-20] MEDS ORDERED: ACETAMINOPHEN 500 MG TAB (TYLENOL) PO ONE (00:30)
[2016-10-20] MEDS: RT-ALBUTEROL/IPRATROPIUM 3 ML (DUONEB) VIAL INH SCH ×6 (02:11→22:17)
[2016-10-20 04:04] LABS: MEAN PLATELET VOLUME 10.7 FL (7.4-10.4); RED CELL DISTRIBUTION WIDTH 14.4 % (10.0-14.5); WHITE BLOOD COUNT 11.8 10^3/uL (4.3-11.0)
[2016-10-20 04:12] LABS: INR 1.2 (0.8-1.4); PROTHROMBIN TIME PATIENT 14.6 SEC (12.2-14.7)
[2016-10-20 04:14] LABS: ALBUMIN 2.7 G/DL (3.2-4.5); BILIRUBIN,TOTAL 0.7 MG/DL (0.1-1.0); CALCIUM 8.8 MG/DL (8.5-10.1); CREATININE SERUM 2.1 MG/DL (0.60-1.30); PHOSPHORUS 2.9 MG/DL (2.3-4.7); TOTAL PROTEIN 5.1 G/DL (6.4-8.2)
[2016-10-20] MEDS: PIPER/TAZOB 4.5 GM/NS 50 ML IVPB IV SCH ×2 (05:24)
[2016-10-20] MEDS: FUROSEMIDE 40 MG/4 ML INJ (LASIX) IV SCH ×2 (06:30→16:35)
[2016-10-20] MEDS: KCL 20 MEQ TAB (K-DUR) PO SCH ×2 (06:30→16:35)
[2016-10-20] MEDS ORDERED: LEVOFLOXACIN 750 MG/150 ML D5W (PRE-MIX) IV SCH (06:30)
[2016-10-20] MEDS: inSUlin (REGULAR) HUMAN 1 UNIT/0.01 ML (CHARGE PER UNIT) SC SCH (06:31)
--- NOTE | 2016-10-20 07:44 | Diagnostic Imaging Report ---
Indication: Short of air. Congestion. Findings: Upright portable chest shows cardiomegaly with normal vascularity. No infiltrates or effusions are seen. Impression: There is cardiomegaly with no failure. The vascularity has decreased slightly since the prior study from 10/19/16. Dictated by: Dictated on workstation # [id number]
[2016-10-20] MEDS: ATENOLOL 25 MG (TENORMIN) TAB PO SCH (08:53)
[2016-10-20] MEDS: GABAPENTIN 300 MG (NEURONTIN) CAP PO SCH ×3 (08:53→20:56)
[2016-10-20] MEDS: ASPIRIN E.C. 81 MG (ECOTRIN) TAB PO SCH (08:53)
[2016-10-20] MEDS: DILTIAZEM 240 MG (CARDIZEM CD) CAP PO SCH (08:53)
[2016-10-20] MEDS: VANCOMYCIN 1 GM/NS 250 ML IVPB IV SCH ×2 (08:53)
[2016-10-20] MEDS: LOSARTAN 50 MG (COZAAR) TAB PO SCH (08:53)
[2016-10-20] MEDS: MAGNESIUM OXIDE (MAG-OX)400 MG TAB PO SCH (08:53)
[2016-10-20] MEDS ORDERED: LEVOFLOXACIN 750 MG/150 ML IV 150 ML IV SCH (09:00)
--- NOTE | 2016-10-20 09:50 | Cardiology Progress Note ---
Subjective Subjective/Events-last exam patient is feeling better, sitting up in a chair, still complaining of generalized weakness and loss of energy, still have shortness of breath. Review of Systems General: No Chills, No Night Sweats, No Fatigue, No Malaise, No Appetite, No Other HEENT: No Head Aches, No Visual Changes, No Eye Pain, No Ear Pain, No Dysphasia , No Sinus Congestion, No Post Nasal Drip, No Sore Throat, No Other Pulmonary: No Dyspnea, CoughNo Pleuritic Chest Pain, No Other Cardiovascular: : EdemaNo: Chest Pain, Lt Headedness, Orthopnea, Other, Palpitations, Paroxysmal Noc. Dyspnea Objective-Cardiology Exam Last Set of Vital Signs Vital Signs 10/20/16 10/20/16 06:00 08:00 Temp 98.9 Pulse 75 Resp 12 B/P 99/55 Pulse Ox 92 O2 Delivery High Flow N/C O2 Flow Rate 6.00 Capillary Refill : Less Than 3 Seconds I&O Bad tableGeneral: Alert, Oriented X3, Cooperative, Mild Distress HEENT: Atraumatic, PERRLA Neck: Supple, No JVD, No Thyromegaly Lungs: Normal Air Movement, Other (bilateral wet rales, bilateral rhonchi) Heart: Normal S1, Normal S2, No Murmurs, Other (irregular rhythm, +2-3 pedal edema) Abdomen: Normal Bowel Sounds, Soft, No Tenderness, No Hepatosplenomegaly, No Masses Extremities: No Clubbing, No Cyanosis, No Tenderness/Swelling Skin: No Breakdown, No Significant Lesion, Other (erythema and edema) Neuro: Normal Speech, Strength at 5/5 X4 Ext, Normal Tone, Sensation Intact Psych/Mental Status: Mental Status NL, Mood NL Results Lab Laboratory Tests 10/20/16 03:15 A/P-Cardiology Admission Diagnosis Change in mental status Hypoglycemia COPD Congestive heart failure, acute on chronic left ventricular diastolic dysfunction, hypertensive heart disease Acute respiratory failure Assessment/Plan Status post change of mental status and unresponsiveness secondary to severe hypoglycemia, better today. Managed by primary care physician Status post acute respiratory failure, better today, doing better, starting physical therapy again Severe COPD, sleep apnea, using C Pap at home, generalized weakness, severe dyspnea with exertion, continue with rehabilitation Permanent atrial fibrillation, Controlled rate, continue on current medication monitor heart rate. [id number]-PGFc score is 4, yearly risk of stroke without oral anticoagulation is 4 percent. Coumadin was on hold, secondary to hematuria, restarted yesterday, continue to monitor INR Hypertension, monitor blood pressure, borderline hypotensive at this time Diastolic dysfunction, acute on chronic left ventricular diastolic dysfunction, hypertensive heart disease- most recent 2D Echo 10/16/16 revealed EF 60%, acute on chronic left ventricular diastolic dysfunction. Hypertensive heart disease, continue on current medications and monitor as an outpatient. Questionable coronary artery disease, patient has multiple risk factors, has been refusing to have a stress test. Peripheral vascular disease, patient had RANULFO done in February 2015, it was 0.54 on the right, 0.77 on the left, patient had angiogram with complex intervention with angioplasty to the right anterior tibial artery, the right peroneal artery with good results with Dr. Gutiérrez. 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 Patient was staged for angiogram and intervention of the left leg then Dr. Gutiérrez has left. Most recent RANULFO done October 2015 within normal limits. Continue to monitor. Chronic venous insufficiency, seen by Dr. Castro in [place], status post ablation by Dr. Castro on the right side. Acute on chronic renal failure, continue on diuretics. Monitor renal function Hyperlipidemia, controlled. Continue to monitor Diabetes mellitus, status post episode of severe hypoglycemia, better at this time, managed by primary care physician Diabetic neuropathy. Mild bilateral carotid stenosis, last ultrasound was done in March 2016. Continue to monitor. Gross hematuria, reporting improvement, refused urology consultation Clinical Quality Measures DVT/VTE Risk/Contraindication: Risk Factor Score Per Nursin RFS Level Per Nursing on Admit: 4+=Very High KEELEY ROSSI MD Oct 20, 2016 09:50
--- NOTE | 2016-10-20 09:53 | Progress Note-Hospitalist ---
Subjective HPI/CC On Admission this is a 80-year-old white male just discharged yesterday after a prolonged hospitalization for respiratory failure congestive heart failure and declining physical status. The patient had been discharged via [facility] without complication. Last night he was given a full dose of his Humalog without having eaten an adequate dinner. In the middle the night he was found to be unresponsive. Nursing staff attempted to give him orange juice by mouth. Unfortunately he aspirated the orange juice and was brought to the emergency room in acute respiratory failure with hypoglycemia.the patient was given multiple doses of D50 with presybeterian of his blood sugar. He however developed mild congestive failure and respiratory insufficiency secondary to aspiration. He has been maintained on BiPAP overnight and his O2 sats on 40 percent are in the mid 90s. He is awake and alert at the time of my interview. Date Seen 10/20/16 Subjective/Events-last exam patient is up sitting in a chair on 2 L nasal cannula and looks much better. He remains very weak and unable to barely transfer by himself without a 3 person assist. Chest x-ray shows clearing he remains afebrile with a normal white count. Sugars are much better controlled. Review of Systems Neurological: : Weakness Objective Exam Vital Signs Vital Sign - Last 12Hours 10/19/16 10/19/16 02:47 03:00 Temp 97.0 Pulse 83 Resp 28 B/P 117/63 Pulse Ox 90 O2 Delivery Nonrebreather O2 Flow Rate 15 Capillary Refill : Less Than 3 Seconds General Appearance: No Apparent Distress Obese HEENT: Normal ENT Inspection Neck: Supple Respiratory: Lungs Clear Normal Breath Sounds No Accessory Muscle Use Cardiovascular: No Gallop Irregularly Irregular Gastrointestinal: Abnormal Bowel Sounds Distended Extremity: Pedal Edema Neurologic/Psychiatric: Alert Oriented x3 Skin: Normal Color Warm/Dry Results/Procedures Lab Laboratory Tests 10/20/16 03:15 Assessment/Plan Assessment and Plan Assess & Plan/Chief Complaint 1. acute respiratory failure secondary to aspiration-no evidence of pneumonia will DC antibiotics 2. Hypoglycemia resolved 3. Chronic respiratory failure secondary to hypercapnia-currently compensated 4. Acute on chronic congestive heart failure secondary to A. fib and diastolic dysfunction 5. Hematuria- having been off aspirin and Coumadin. Will use Lovenox cautiously 6. Chronic atrial fibrillation good rate control 7. Morbid obesity 8. Type II diabetes labile in nature 9. Hypoglycemia resolved 10. Debility 11. abdominal distention will use suppository to try and get the bowels to move. Transfer to ASHLEY MEJIAS MD Oct 20, 2016 09:53
[2016-10-20] MEDS: ENOXAPARIN 40 MG/0.4 ML (LOVENOX) SYR SQ SCH (11:37)
[2016-10-20] MEDS: inSUlin ASPART (NovoLOG) 1 UNIT/0.01 ML (CHARGE PER UNIT) SC SCH ×2 (11:37→16:34)
[2016-10-20] MEDS: NIACIN 500 MG TABLET PO SCH (16:34)
[2016-10-20] MEDS ORDERED: TROUGH ORDER-PHARMACY XX NR (19:00)
[2016-10-20] MEDS: ALFUZOSIN HCL 10 MG TAB (UROXATRAL) PO SCH (20:57)
[2016-10-20] MEDS: inSUlin DETERMIR 1 UNIT/0.01 ML (LEVEMIR) CHARGE PER UNIT SQ SCH (20:58)
[2016-10-21] VITALS (17 sets, daily range): BP systolic 91–144; BP diastolic 37–107
[2016-10-21] MEDS: RT-ALBUTEROL/IPRATROPIUM 3 ML (DUONEB) VIAL INH SCH ×6 (01:27→21:54)
[2016-10-21 04:51] LABS: INR 1.2 (0.8-1.4); PROTHROMBIN TIME PATIENT 14.5 SEC (12.2-14.7)
[2016-10-21 05:03] LABS: BASOPHILS % (AUTO) 0 % (0-10); EOSINOPHILS # (AUTO) 0.2 10^3/uL (0.0-0.3); EOSINOPHILS % (AUTO) 1 % (0-10); LYMPHOCYTES # (AUTO) 0.7 X 10^3 (1.0-4.0); LYMPHOCYTES % (AUTO) 7 % (12-44); MEAN CORPUSCULAR HEMOGLOBIN 32 PG (25-34); MEAN CORPUSCULAR HGB CONC 34 G/DL (32-36); MEAN CORPUSCULAR VOLUME 95 FL (80-99); MEAN PLATELET VOLUME 10.4 FL (7.4-10.4); MONOCYTES # (AUTO) 1.8 X 10^3 (0.0-1.0); MONOCYTES % (AUTO) 16 % (0-12); NEUTROPHILS # (AUTO) 8.3 X 10^3 (1.8-7.8); NEUTROPHILS % (AUTO) 76 % (42-75); PLATELET COUNT 156 10^3/uL (130-400); RED BLOOD COUNT 3.03 10^6/uL (4.35-5.85); RED CELL DISTRIBUTION WIDTH 14.4 % (10.0-14.5)
[2016-10-21 05:05] LABS: BILIRUBIN,TOTAL 0.7 MG/DL (0.1-1.0); CALCIUM 9.5 MG/DL (8.5-10.1); CREATININE SERUM 2.07 MG/DL (0.60-1.30); MAGNESIUM 2.2 MG/DL (1.8-2.4); PHOSPHORUS 3.4 MG/DL (2.3-4.7); TOTAL PROTEIN 5.6 G/DL (6.4-8.2)
[2016-10-21 05:10] LABS: POTASSIUM 5.5 MMOL/L (3.6-5.0)
[2016-10-21 05:30] LABS: BAND NEUTROPHILS 4 %; BASOPHILS % (MANUAL) 0 %; EOSINOPHILS % (MANUAL) 1 %; LYMPHOCYTES % (MANUAL) 6 %; NEUTROPHILS % (MANUAL) 79 %; REACTIVE LYMPHOCYTES 4 %
[2016-10-21 05:38] LABS: ABG BASE EXCESS 0.4 MMOL/L (-2.5-2.5); ABG HCO3 25 MMOL/L (23-27); ABG OXYGEN SATURATION 97 % (94-100); ABG PCO2 40 MMHG (35-45); ABG PH 7.42 (7.37-7.43); ABG PO2 75 MMHG (79-93); ABG TCO2 26.4 MMOL/L (21.0-31.0)
[2016-10-21 05:44] LABS: ALLENS TEST YES-POS
[2016-10-21 05:45] LABS: PATIENT TEMP 97.5
[2016-10-21] MEDS ORDERED: NS IV 1000 ML 1,000 ML IV SCH (06:21)
--- NOTE | 2016-10-21 06:32 | Pulmonary Consultation ---
History of Present Illness History of Present Illness Date of Consultation 10/21/16 06:27 Date of Admission Reason for Visit: congestive heart failure History of Present Illness 80yo who was recently discharged after prolonged hospitalization secondary to CHF, and respiratory failure. Pt was given a full dose of his Humalog without having eaten an adequate dinner. In the middle the night he was found to be unresponsive. Nursing staff attempted to give him orange juice by mouth. he then aspirated the orange juice and was brought to the emergency room in acute respiratory failure with hypoglycemia.the patient was given multiple doses of D50 with yarsani of his blood sugar. Pt is now feeling much improved and does not remember the event so unable to obtain ROS . I am consulted for pulmonary management Allergies and Home Medications Allergies Coded Allergies: sulfamethoxazole (Verified Allergy, Mild, RASH, 10/31/15) trimethoprim (Verified Allergy, Mild, RASH, 10/31/15) Home Medications 2,000 UNITS PO DAILY (Reported) 500 MG PO DAILY (Reported) Atenolol 25 Mg Tablet 25 MG PO DAILY (Reported) Cholecalciferol (Vitamin D3) 2,000 Unit Capsule 2,000 UNIT PO DAILY (Reported) Diltiazem HCl 240 Mg Cap.er.24h 480 MG PO DAILY (Reported) Furosemide 40 Mg Tablet 40 MG PO BID@0700,1400 (Reported) Gabapentin 300 Mg Capsule 300 MG PO TID (Reported) Insulin Aspart 300 Units/3 Ml Solution 32-33 UNITS SQ HS (Reported) Insuln Asp Prt/Insulin Aspart 300 Units/3 Ml Solution 30 UNITS SQ DAILY ( Reported) Daily in am Ipratropium/Albuterol Sulfate 3 Ml Ampul.neb 3 ML IH Q4H PRN PRN SHORTNESS OF BREATH (Reported) Lactobacillus Acidophilus 1 Each Capsule 1 CAP PO DAILY (Reported) Losartan Potassium 50 Mg Tablet 50 MG PO DAILY (Reported) Magnesium Oxide 500 Mg Tablet 500 MG PO HS (Reported) Multivitamin 1 Each Tablet 1 TAB PO DAILY (Reported) Niacinamide 500 Mg Tablet 500 MG PO DAILY (Reported) Potassium Chloride 20 Meq Tab.er.prt 40 MEQ PO BID (Reported) TAKES 2 (20 MEQ) TABLETS Prednisone 10 Mg Tab 10 MG PO DAILY (Reported) Tamsulosin HCl 0.4 Mg Cap.er.24h 0.4 MG PO HS (Reported) Past Aovefra-Lyxxcd-Jrxhzd Hx Patient Social History Alcohol Use: Denies Use Recreational Drug Use: No Smoking Status: Former Smoker Type Used: Cigarettes Former Smoker/When Quit: Apr 24, 2005 Recent Foreign Travel: No Contact w/Someone Who Travel: No Recent Infectious Disease Expo: No Recent Hopitalizations: Yes (Pneumonia 08/2016) Physical Abuse Screen: No Sexual Abuse: No Immunizations Up To Date Tetanus Booster (TDap): Less than 5yrs PED Vaccines UTD: No Date of Pneumonia Vaccine: Aug 28, 2016 Date of Influenza Vaccine: Aug 28, 2016 Seasonal Allergies Seasonal Allergies: No Surgeries HX Surgeries: Yes (CATARACTS, CARPAL TUNNEL, BILAT.THUMBS) Surgeries: Eye Surgery, Orthopedic, Tonsillectomy Respiratory Hx Respiratory Disorders: Yes (CPAP AT HS; ACUTE ON CHRONIC RESPIRATORY FAILURE ) Respiratory Disorders: Pneumonia, Sleep Apnea, COPD Cardiovascular Hx Cardiac Disorders: Yes Cardiac Disorders: Atrial Fibrillation, High Cholesterol, Hypertension Neurological Hx Neurological Disorders: Yes (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) Neurological Disorders: Neuropathy Reproductive System Hx Reproductive Disorders: No Sexually Transmitted Disease: No HIV/AIDS: No Genitourinary Hx Genitourinary Disorders: Yes Genitourinary Disorders: Benign Prostatic Hyperpl Gastrointestinal Hx Gastrointestinal Disorders: No Musculoskeletal Hx Musculoskeletal Disorders: No Endocrine Hx Endocrine Disorders: Yes Endocrine Disorders: Diabetes, Insulin dep HEENT HX ENT Disorders: Yes HEENT Disorders: Cataract, Macular Degeneration Hearing Impairment: Hard of Hearing Cancer Hx Cancer: Yes (BASAL CELL CARCINOMA) Cancer: Skin Psychosocial Hx Psychiatric Problems: No Integumentary HX Skin/Integumentary Disorder: Yes (CELLULITIS IN LEFT KNEE EARLY OCTOBER 2013) Skin/Integumentary Disorders: Recent Skin Changes Blood Transfusions Hx Blood Disorders: No Adverse Reaction to a Blood Tr: No Family Medical History Significant Family History: Cancer Family Medial History: COPD 19 FATHER Colon cancer 19 MOTHER Diabetes mellitus G8 SISTER Drug abuse G8 SISTER Lung cancer 19 FATHER Polio G8 BROTHER Sarcoidosis G8 BROTHER Exam Exam Vital Signs Date Time Temp Pulse Resp B/P Pulse Ox O2 Delivery O2 Flow Rate FiO2 10/21/16 06:14 89 6.00 10/21/16 06:00 89 29 99/62 90 Nasal Cannula 6.00 10/21/16 05:00 83 20 113/82 95 NIV Bilevel 40.00 10/21/16 04:00 97.4 90 22 98/59 91 NIV Bilevel 40.00 10/21/16 04:00 94 NIV/Bilevel 40 1/23/17 03:55 87 21 92 40.00 10/21/16 03:00 80 12 91/52 95 NIV Bilevel 40.00 10/21/16 02:00 87 20 118/77 96 High Flow N/C 6.00 10/21/16 01:27 90 32 91 30.00 10/21/16 01:00 90 18 131/68 91 High Flow N/C 6.00 10/21/16 01:00 80 10/21/16 00:00 98.5 93 28 128/68 91 High Flow N/C 6.00 10/21/16 00:00 93 High Flow NC 6.00 10/20/16 23:00 82 18 120/64 94 High Flow N/C 5.50 10/20/16 22:18 92 6.00 10/20/16 22:00 80 15 109/59 93 High Flow N/C 5.50 10/20/16 21:00 81 12 119/66 93 High Flow N/C 5.50 10/20/16 20:00 99.4 92 16 134/65 90 High Flow N/C 5.50 10/20/16 20:00 94 High Flow NC 5.50 10/20/16 19:00 80 9 109/73 91 High Flow N/C 5.50 10/20/16 19:00 87 10/20/16 18:21 91 6.00 10/20/16 18:00 83 18 110/61 High Flow N/C 6.00 10/20/16 17:00 76 29 100/59 92 High Flow N/C 6.00 10/20/16 16:00 92 High Flow NC 6.00 10/20/16 16:00 74 27 98/49 93 High Flow N/C 6.00 10/20/16 16:00 99.4 High Flow N/C 6.00 10/20/16 15:00 75 35 89/63 93 High Flow N/C 6.00 10/20/16 14:22 81 10/20/16 14:00 67 13 108/70 90 High Flow N/C 6.00 10/20/16 13:04 72 10/20/16 13:00 111 28 110/63 High Flow N/C 6.00 10/20/16 12:00 97.3 High Flow N/C 6.00 10/20/16 12:00 83/69 High Flow N/C 6.00 10/20/16 12:00 92 High Flow NC 6.00 10/20/16 11:00 91 14 99/58 High Flow N/C 6.00 10/20/16 10:49 93 6.00 10/20/16 10:00 9 93/58 High Flow N/C 6.00 10/20/16 09:00 24 90/23 High Flow N/C 6.00 10/20/16 08:00 98.9 High Flow N/C 6.00 10/20/16 08:00 92 High Flow NC 6.00 10/20/16 08:00 24 96/64 High Flow N/C 6.00 10/20/16 07:00 75 20 98/52 High Flow N/C 6.00 10/20/16 06:51 97 6.00 I & O 10/21/16 07:00 Intake Total 1175 ml Output Total 1105 ml Balance 70 ml General Appearance: No Apparent Distress Obese HEENT: Normal ENT Inspection Neck: Supple Respiratory: Lungs Clear Normal Breath Sounds No Accessory Muscle Use Cardiovascular: No Gallop Irregularly Irregular Capillary Refill: Less Than 3 Seconds Extremity: Pedal Edema Neurologic/Psychiatric: Alert Oriented x3 Skin: Normal Color Warm/Dry Lymphatic: No Adenopathy Results Lab Laboratory Tests 10/20/16 03:15 10/21/16 04:02 Assessment/Plan Assessment/Plan ACute on chronic respiratory failure s/p aspiration Hyperkalemia with acute renal failure and very little urine output -give 1 liter bolus over 2 hrs -Kayexalate Severe hypoglycemia -now improved CHF diastolic morbid obesity Pt is doing much better he is off BiPAP setting up in chair and eating breakfast. Monitor I&Os accurately. Clinical Quality Measures DVT/VTE Risk/Contraindication: Risk Factor Score Per Nursin RFS Level Per Nursing on Admit: 4+=Very High KEIKO VALENZUELA DO Oct 21, 2016 06:32
[2016-10-21] MEDS ORDERED: SOD POLYSTERENE 15 GM/60 ML (KAYEXALATE) UNIT DOSE PO NR (06:45)
[2016-10-21] MEDS ORDERED: LEVOFLOXACIN 750 MG/150 ML D5W (PRE-MIX) IV SCH (07:00)
[2016-10-21] MEDS: inSUlin ASPART (NovoLOG) 1 UNIT/0.01 ML (CHARGE PER UNIT) SC SCH ×3 (07:32→17:18)
--- NOTE | 2016-10-21 07:35 | Cardiology Progress Note ---
Subjective Subjective/Events-last exam Patient is in a chair, still complaining of generalized weakness and fatigue. Denied any chest pain, significant edema, very low urine output Review of Systems General: No Chills, No Night Sweats, Fatigue MalaiseNo Appetite, No Other HEENT: No Head Aches, No Visual Changes, No Eye Pain, No Ear Pain, No Dysphasia , No Sinus Congestion, No Post Nasal Drip, No Sore Throat, No Other Pulmonary: Dyspnea CoughNo Pleuritic Chest Pain, No Other Cardiovascular: : EdemaNo: Chest Pain, Lt Headedness, Orthopnea, Other, Palpitations, Paroxysmal Noc. Dyspnea Objective-Cardiology Exam Last Set of Vital Signs Vital Signs 10/21/16 10/21/16 10/21/16 04:00 06:00 06:14 Temp 97.4 Pulse 89 Resp 29 B/P 99/62 Pulse Ox 89 O2 Delivery Nasal Cannula O2 Flow Rate 6.00 FiO2 40 Capillary Refill : Less Than 3 Seconds I&O Intake and Output 10/21/16 00:00 Intake Total 1725 ml Output Total 1375 ml Balance 350 ml Intake Oral 1325 ml IV Total 400 ml Output Urine Total 1375 ml # Bowel Movements 1 General: Alert, Oriented X3, Cooperative, Mild Distress HEENT: Atraumatic, PERRLA Neck: Supple, No Thyromegaly Lungs: Normal Air Movement, Other (bilateral wheezing, rhonchi) Heart: Normal S1, Normal S2, No Murmurs, Other (irregular rhythm, +2-3 pedal edema) Abdomen: Normal Bowel Sounds, Soft, No Tenderness, No Hepatosplenomegaly, No Masses Extremities: No Clubbing, No Cyanosis, No Tenderness/Swelling Skin: No Breakdown, No Significant Lesion, Other (erythema and edema) Neuro: Normal Speech, Strength at 5/5 X4 Ext, Normal Tone, Sensation Intact Psych/Mental Status: Mental Status NL, Mood NL Results Lab Laboratory Tests 10/21/16 04:02 A/P-Cardiology Admission Diagnosis Change in mental status Hypoglycemia COPD Congestive heart failure, acute on chronic left ventricular diastolic dysfunction, hypertensive heart disease Acute respiratory failure Assessment/Plan Status post change of mental status and unresponsiveness secondary to severe hypoglycemia, better, continue to monitor. Managed by primary care physician Status post acute respiratory failure, doing better at this time. Continue to monitor. Oliguria, acute on chronic renal insufficiency, receiving IV fluid bolus of 1 L , I will hold Lasix today, restart it tomorrow. Hypokalemia, hold potassium, receiving Kayexalate. Monitor electrolytes closely. Severe COPD, sleep apnea, using C Pap at home, generalized weakness, severe dyspnea with exertion, continue with physical therapy. Permanent atrial fibrillation, Controlled rate, continue on current medication monitor heart rate. [id number] score is 4, yearly risk of stroke without oral anticoagulation is 4 percent. restarted on Coumadin, I will use Lovenox bridging. Monitor for hematuria Hypertension, borderline hypotensive, receiving IV fluid, continue to monitor Diastolic dysfunction, acute on chronic left ventricular diastolic dysfunction, hypertensive heart disease- most recent 2D Echo 10/16/16 revealed EF 60%, acute on chronic left ventricular diastolic dysfunction. Hypertensive heart disease, continue on current medications and monitor as an outpatient. Questionable coronary artery disease, patient has multiple risk factors, has been refusing to have a stress test. Peripheral vascular disease, patient had RANULFO done in February 2015, it was 0.54 on the right, 0.77 on the left, patient had angiogram with complex intervention with angioplasty to the right anterior tibial artery, the right peroneal artery with good results with Dr. Gutiérrez. 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 Patient was staged for angiogram and intervention of the left leg then Dr. Gutiérrez has left. Most recent RANULFO done October 2015 within normal limits. Continue to monitor. Chronic venous insufficiency, seen by Dr. Castro in [place], status post ablation by Dr. Castro on the right side. Hyperlipidemia, continue on current medications and monitor. Diabetes mellitus, status post episode of severe hypoglycemia, better at this time, managed by primary care physician Diabetic neuropathy. Mild bilateral carotid stenosis, last ultrasound was done in March 2016. Continue to monitor. Gross hematuria, reporting improvement, refused urology consultation Clinical Quality Measures DVT/VTE Risk/Contraindication: Risk Factor Score Per Nursin RFS Level Per Nursing on Admit: 4+=Very High KEELEY ROSSI MD Oct 21, 2016 07:35
--- NOTE | 2016-10-21 08:00 | Diagnostic Imaging Report ---
EXAMINATION: Portable erect AP chest at 4:31 PM INDICATION: Congestion The heart size is stable when compared to the prior exam of 10/20/16. Both the left lung base and right midlung do seem better aerated than on the prior study. I still suspect that there is some atelectasis/infiltrate in each of these areas, however, the upper lungs remain clear. There are small bilateral pleural effusions. These are unchanged when compared to the prior study. The mediastinum is not widened. The osseous structures are intact. IMPRESSION: The appearance of the chest has improved as the lungs do seem better aerated. A followup study would be recommended for continued evaluation. Dictated by: Dictated on workstation # [id number]
--- NOTE | 2016-10-21 08:31 | Progress Note-Hospitalist ---
Progress Note HPI/CC on Admission This is a 80-year-old white male discharged recently after a prolonged hospitalization for respiratory failure congestive heart failure and declining physical status. The patient had been discharged via [facility] without complication. While there he was given a full dose of his Humalog without having eaten an adequate dinner. In the middle the night he was found to be unresponsive. Nursing staff attempted to give him orange juice by mouth. Unfortunately he aspirated the orange juice and was brought to the emergency room in acute respiratory failure with hypoglycemia.the patient was given multiple doses of D50 with yazidi of his blood sugar. He however developed mild congestive failure and respiratory insufficiency secondary to aspiration. He has been maintained on BiPAP overnight and has had oxygen saturations in the upper 80's lower 90's. Despite his recent illness he states he feels well and "has never really been sick". This is concerning he is not really understanding his disease process as he has multiple comorbidities and is not objectively doing well. Progress Notes/Assess & Plan Date Seen 10/21/16 Admission Dx/Process 1. Aspiration pneumonitis vs COPD exacerbation 2. hypoxia 3. hypoglycemia 4. DM 5. Heart failure with preserved ejection fraction 6. chronic afib 7. hyperkalemia 8. oliguria 9. hematuria 10. hypotension Diagonsis/Assessment & Plan AFVSS, O2 sat 89% on 6L high flow Irr Irr, coarseness w/wheezing 1+ edema Laboratory Tests 10/21/16 04:02 1. acute respiratory failure secondary to aspiration-no evidence of pneumonia will DC antibiotics 2. Hypoglycemia resolved 3. Chronic respiratory failure secondary to hypercapnia-currently compensated 4. Acute on chronic congestive heart failure secondary to A. fib and diastolic dysfunction 5. Hematuria- having been off aspirin and Coumadin. Will use Lovenox cautiously 6. Chronic atrial fibrillation good rate control 7. Morbid obesity 8. Type II diabetes labile in nature 9. Hypoglycemia resolved 10. Debility 11. abdominal distention will use suppository to try and get the bowels to move. 12. Oliguria with hypotension and hyperkalemia Plan: -receiving fluid bolus currently due to hypotension overnight and low urinary output -holding Lasix due to hypotension, blood pressure has improved this morning -will likely need 40mg IV Lasix soon with blood pressure improving but he is still fluid overloaded with hypoxia. This will be a delicate balance as he is oliguric as well. -consider Bipap as his O2 is 88% during patient interview on 6L by NC -resp therapy with breathing tx's -pulm consult -cards consult -palliative care consult Poor prognosis SASCHA MORTENSEN DO Oct 21, 2016 08:31
[2016-10-21] MEDS: ATENOLOL 25 MG (TENORMIN) TAB PO SCH (08:34)
[2016-10-21] MEDS: DILTIAZEM 240 MG (CARDIZEM CD) CAP PO SCH (08:34)
[2016-10-21] MEDS: ASPIRIN E.C. 81 MG (ECOTRIN) TAB PO SCH (08:34)
[2016-10-21] MEDS: MAGNESIUM OXIDE (MAG-OX)400 MG TAB PO SCH (08:34)
[2016-10-21] MEDS: LOSARTAN 50 MG (COZAAR) TAB PO SCH (08:34)
[2016-10-21] MEDS: GABAPENTIN 300 MG (NEURONTIN) CAP PO SCH ×3 (08:34→23:09)
[2016-10-21] MEDS: FUROSEMIDE 40 MG/4 ML INJ (LASIX) IV SCH (08:52)
[2016-10-21] MEDS: KCL 20 MEQ TAB (K-DUR) PO SCH (08:52)
--- NOTE | 2016-10-21 09:15 | Physical Therapy Daily Note ---
PT Daily Note-Current Subjective Patient is up in recliner and agrees to PT. Pain Numeric Pain Scale: 0-No Pain Location: No Pain Reported Appearance distended abdomen; bilateral LE and UE 2+ edema Mental Status Patient Orientation: Normal For Age Attachments: Oxygen (6L HF), IV Transfers Functional [place] Measure 0=Not Assessed/NA 4=Minimal Assistance 1=Total Assistance 5=Supervision or Setup 2=Maximal Assistance 6=Modified [place] 3=Moderate Assistance 7=Complete IndependenceIRFPAI Quality Coding Scale 6 Independent with activity with or without an assistive device 5 Patient requires set up or clean up by helper. Patient completes activity by themselves 4 Supervision or touching assist (CGA). [place] provide cues , steadying assist 3 The helper provides less than half the effort to complete the activity 2 The helper provides more than half the effort to complete the activity 1 Dependent. The helper does all the effort to complete an activity 7 Patient refused to complete or attempt activity 9 The patient did not perform the activity before the current illness or injury 88 Not attempted due to Medical conditions or safety concerns Transfers (B, C, W/C) (FIM): 2 Scootin Sit to/from Stand: 2 sit to stand transfer training maximum assist to improve pulmonary function. SAO2 decreased to 81% on 6L O2 HF NC with very slow recovery (~3 minutes) to 90% ; sit to stand x 2 sets Exercises Seated Therapy Exercises: Ankle pumps, Long arc quads Seated Reps: 20 SAO2 decreased with exercises due to diminished lung capacity; exercises, transfer training and gait training to address pulmonary function Assessment Patient requires time to complete tasks due to increase SOA and decreased SAO2 with minimal activity. PT to increase activity as tolerated by patient. PT Detention Goals Detention Goals PT Detention Goals Time Frame: Oct 25, 2016 Transfers (B,C,W/C) (FIM): 6 Gait (FIM): 5 Distance: household distance Gait Assistive Device: FWW PT Plan Treatment/Plan Treatment Plan: Continue Plan of Care Treatment Plan: Bed Mobility, Education, Functional Activity Amanda, Functional Strength, Gait, Safety, Therapeutic Exercise, Transfers Treatment Duration: Oct 25, 2016 Visits Per Week: 5-6 Time/GCodes Time In: 820 Time Out: 845 Total Billed Treatment Time: 25 Total Billed Treatment 1 visit FA 15 min EX 10 min NIKHIL LEBLANC PT Oct 21, 2016 09:15
[2016-10-21] MEDS: ENOXAPARIN 300 MG/3 ML (LOVENOX) MULTI-DOSE VIAL SQ SCH ×2 (11:44→23:19)
[2016-10-21] MEDS ORDERED: TURM500C7 PO (12:02)
--- NOTE | 2016-10-21 12:41 | Occ Therapy Progress Note ---
Therapy Progress Note OT went and attempted to work with pt at 1115. Pt stated that he was too tired to do anything and he was frustrated that it took 3 people to help him out of bed and sit in the chair. Pt is on 6-7 L of O2 at 90% sat level. Pt declined to complete any exercise, grooming or bathing task at this time. PIYUSH RAZO Oct 21, 2016 12:41
[2016-10-21] MEDS: NIACIN 500 MG TABLET PO SCH (17:18)
[2016-10-21] MEDS: ALFUZOSIN HCL 10 MG TAB (UROXATRAL) PO SCH (23:09)
[2016-10-21] MEDS: inSUlin DETERMIR 1 UNIT/0.01 ML (LEVEMIR) CHARGE PER UNIT SQ SCH (23:14)
[2016-10-22] VITALS (8 sets, daily range): BP systolic 117–153; BP diastolic 60–118
[2016-10-22 01:15] LABS: ABG BASE EXCESS 0.8 MMOL/L (-2.5-2.5); ABG HCO3 26 MMOL/L (23-27); ABG OXYGEN SATURATION 97 % (94-100); ABG PCO2 46 MMHG (35-45); ABG PH 7.38 (7.37-7.43); ABG PO2 84 MMHG (79-93); ABG TCO2 27.9 MMOL/L (21.0-31.0)
[2016-10-22 01:17] LABS: ALLENS TEST YES-POS
[2016-10-22 01:18] LABS: PATIENT TEMP 97.6
[2016-10-22] MEDS: RT-ALBUTEROL/IPRATROPIUM 3 ML (DUONEB) VIAL INH SCH ×6 (01:49→22:28)
[2016-10-22 04:25] LABS: BASOPHILS % (AUTO) 0 % (0-10); EOSINOPHILS # (AUTO) 0.2 10^3/uL (0.0-0.3); EOSINOPHILS % (AUTO) 2 % (0-10); LYMPHOCYTES # (AUTO) 0.8 X 10^3 (1.0-4.0); LYMPHOCYTES % (AUTO) 10 % (12-44); MEAN CORPUSCULAR HEMOGLOBIN 32 PG (25-34); MEAN CORPUSCULAR HGB CONC 34 G/DL (32-36); MEAN CORPUSCULAR VOLUME 94 FL (80-99); MEAN PLATELET VOLUME 9.9 FL (7.4-10.4); MONOCYTES # (AUTO) 1.3 X 10^3 (0.0-1.0); MONOCYTES % (AUTO) 17 % (0-12); NEUTROPHILS # (AUTO) 5.5 X 10^3 (1.8-7.8); NEUTROPHILS % (AUTO) 71 % (42-75); PLATELET COUNT 154 10^3/uL (130-400); RED BLOOD COUNT 3.06 10^6/uL (4.35-5.85); RED CELL DISTRIBUTION WIDTH 14.3 % (10.0-14.5); WHITE BLOOD COUNT 7.8 10^3/uL (4.3-11.0)
[2016-10-22 04:36] LABS: INR 1.2 (0.8-1.4); PROTHROMBIN TIME PATIENT 15.2 SEC (12.2-14.7)
[2016-10-22 04:56] LABS: ALBUMIN 2.9 G/DL (3.2-4.5); BILIRUBIN,TOTAL 0.6 MG/DL (0.1-1.0); CALCIUM 9.3 MG/DL (8.5-10.1); CREATININE SERUM 1.57 MG/DL (0.60-1.30); MAGNESIUM 2.1 MG/DL (1.8-2.4); PHOSPHORUS 3.3 MG/DL (2.3-4.7); POTASSIUM 4.4 MMOL/L (3.6-5.0); TOTAL PROTEIN 5.3 G/DL (6.4-8.2)
--- NOTE | 2016-10-22 06:25 | Pulmonary Progress Note ---
Subjective Subjective/Events-last exam Pt's respiratory status is now worse after holding lasix and 1 liter IVF bolus Exam Exam Vital Signs Date Time Temp Pulse Resp B/P Pulse Ox O2 Delivery O2 Flow Rate FiO2 10/22/16 04:33 97 27 98 60.00 10/22/16 04:00 93 NIV/Bilevel 60 10/22/16 04:00 98.3 NIV Bilevel 60.00 10/22/16 01:49 10.00 10/22/16 00:00 93 NIV/Bilevel 60 10/22/16 00:00 98.0 NIV Bilevel 60.00 10/21/16 23:19 98.3 10/21/16 23:14 98.3 10/21/16 21:54 105 29 97 60.00 10/21/16 20:18 95 29 96 60.00 10/21/16 20:00 97.6 NIV Bilevel 60.00 10/21/16 20:00 92 NIV/Bilevel 60 10/21/16 18:56 60 10/21/16 18:34 68 29 97 75.00 10/21/16 16:43 6.00 10/21/16 16:00 92 High Flow NC 6.00 10/21/16 16:00 98.3 High Flow N/C 6.00 10/21/16 14:00 92 25 96/69 90 High Flow N/C 6.00 10/21/16 13:00 90 24 131/76 90 High Flow N/C 6.00 10/21/16 12:00 92 High Flow NC 6.00 10/21/16 12:00 97 22 144/37 88 High Flow N/C 6.00 10/21/16 12:00 97.8 High Flow N/C 6.00 10/21/16 11:52 92 6.00 10/21/16 10:00 83 23 133/72 93 High Flow N/C 6.00 10/21/16 09:00 79 26 138/107 87 High Flow N/C 6.00 10/21/16 08:00 98.0 High Flow N/C 6.00 10/21/16 08:00 84 35 120/64 90 High Flow N/C 6.00 10/21/16 08:00 92 High Flow NC 6.00 10/21/16 07:00 77 23 115/66 90 High Flow N/C 6.00 10/21/16 07:00 91 I & O 10/22/16 07:00 Intake Total 1140 ml Output Total 550 ml Balance 590 ml General Appearance: No Apparent Distress Obese HEENT: Normal ENT Inspection Neck: Supple Respiratory: Lungs Clear Normal Breath Sounds No Accessory Muscle Use Cardiovascular: No Gallop Irregularly Irregular Capillary Refill: Less Than 3 Seconds Extremity: Pedal Edema Neurologic/Psychiatric: Alert Oriented x3 Skin: Normal Color Warm/Dry Lymphatic: No Adenopathy Results Lab Laboratory Tests 10/21/16 04:02 10/22/16 04:07 Assessment/Plan Assessment/Plan ACute on chronic respiratory failure s/p aspiration -Worse today after holding lasix and 1 liter bolus yesterday -restart lasix -IVF are hep locked Acute renal failure -improved with holding lasix however respiratory status is now worse CHF diastolic morbid obesity Clinical Quality Measures DVT/VTE Risk/Contraindication: Risk Factor Score Per Nursin RFS Level Per Nursing on Admit: 4+=Very High KEIKO VALENZUELA DO Oct 22, 2016 06:25
--- NOTE | 2016-10-22 07:27 | Physician Query-General Query ---
Physician Query-General Query to Physician: For clarification: Was this patient's hypoglycemia on admission with or without coma? PHYSICIAN RESPONSE: Based on the clinical findings in the record, please respond to the query above on this document as an addendum. Possible, probable, or questionable diagnosis can be coded for INPATIENTS ONLY. Physician Response: Physician Response with coma If you have questions please contact: Color Receiver:Uma Figueroa [facility],CCDS Ext:[phone] Thank you for your time and cooperation. Clinical [employer] Log[employer] Operator/Color Receiver This is a permanent part of the medical record UMA FIGUEROA Oct 22, 2016 07:27 SASCHA MORTENSEN DO Oct 22, 2016 14:32
[2016-10-22] MEDS: DILTIAZEM 240 MG (CARDIZEM CD) CAP PO SCH (08:00)
[2016-10-22] MEDS: inSUlin ASPART (NovoLOG) 1 UNIT/0.01 ML (CHARGE PER UNIT) SC SCH ×3 (08:00→20:30)
[2016-10-22] MEDS: LOSARTAN 50 MG (COZAAR) TAB PO SCH (08:00)
[2016-10-22] MEDS: ASPIRIN E.C. 81 MG (ECOTRIN) TAB PO SCH (08:00)
[2016-10-22] MEDS: ATENOLOL 25 MG (TENORMIN) TAB PO SCH (08:00)
[2016-10-22] MEDS: GABAPENTIN 300 MG (NEURONTIN) CAP PO SCH ×3 (08:00→20:30)
[2016-10-22] MEDS: MAGNESIUM OXIDE (MAG-OX)400 MG TAB PO SCH (08:00)
--- NOTE | 2016-10-22 08:35 | Progress Note-Hospitalist ---
Progress Note HPI/CC on Admission This is a 80-year-old white male discharged recently after a prolonged hospitalization for respiratory failure congestive heart failure and declining physical status. The patient had been discharged via [facility] without complication. While there he was given a full dose of his Humalog without having eaten an adequate dinner. In the middle the night he was found to be unresponsive. Nursing staff attempted to give him orange juice by mouth. Unfortunately he aspirated the orange juice and was brought to the emergency room in acute respiratory failure with hypoglycemia.the patient was given multiple doses of D50 with jain of his blood sugar. He however developed mild congestive failure and respiratory insufficiency secondary to aspiration. He has been maintained on BiPAP overnight and has had oxygen saturations in the upper 80's lower 90's. Despite his recent illness he states he feels well and "has never really been sick". This is concerning he is not really understanding his disease process as he has multiple comorbidities and is not objectively doing well. Progress Notes/Assess & Plan Date Seen 10/22/16 Admission Dx/Process 1. Aspiration pneumonitis vs COPD exacerbation 2. hypoxia 3. hypoglycemia 4. DM 5. Heart failure with preserved ejection fraction 6. chronic afib 7. hyperkalemia 8. oliguria 9. hematuria 10. hypotension Diagonsis/Assessment & Plan Pt continues to be complex management. Conferred with Dr Herring Palliative care consulted each and every time due to end stage illness status Checked meds and labs + BM Confusion last night now cleared AFVSS, O2 sat 90% on 6L high flow currently but required biPAP yesterday/last night Irr Irr, coarseness w/wheezing 1+ edema Laboratory Tests 10/22/16 04:07 Assessment: 1. acute respiratory failure secondary to aspiration-no evidence of pneumonia will DC antibiotics 2. Hypoglycemia resolved 3. Chronic respiratory failure secondary to hypercapnia-currently compensated 4. Acute on chronic congestive heart failure secondary to A. fib and diastolic dysfunction 5. Hematuria- having been off aspirin and Coumadin. Will use Lovenox cautiously 6. Chronic atrial fibrillation good rate control 7. Morbid obesity 8. Type II diabetes labile in nature 9. Hypoglycemia resolved 10. Debility 11. abdominal distention will use suppository to try and get the bowels to move. 12. Oliguria with hypotension and hyperkalemia 13. Delirium Plan: -s/p fluid bolus currently due to hypotension overnight and low urinary output -Lasix due to volume overload -Bipap as needed as his O2 is 90% during patient interview on 6L by NC -resp therapy with breathing tx's -pulm consult -cards consult -palliative care consult Poor prognosis SB evaluation Insulin will be monitored closely especially at [place] SASCHA MORTENSEN DO Oct 22, 2016 08:35
[2016-10-22] MEDS ORDERED: INSU100I13 SQ (08:41)
--- NOTE | 2016-10-22 08:41 | Diagnostic Imaging Report ---
INDICATION: Congestion, shortness of air. COMPARISON: 10/21/2016. FINDINGS: Right basilar patchy and confluent opacities have not significantly changed. Left basilar opacities are also similar. No pneumothorax. Blunting of the right lateral costophrenic angle could be due to small pleural effusion or subjacent atelectasis. Stable cardiomegaly. Remote right-sided rib fractures are unchanged. IMPRESSION: 1. Unchanged bibasilar pulmonary opacities which may relate to a combination of atelectasis and/or pulmonary edema. Multifocal infection could have a similar appearance in the appropriate setting. 2. Probable small right pleural effusion. Dictated by: Dictated on workstation # [id number]
--- NOTE | 2016-10-22 09:43 | Physical Therapy Daily Note ---
PT Daily Note-Current Subjective Patient is up in recliner and agrees to PT. Pain Numeric Pain Scale: 0-No Pain Location: No Pain Reported Mental Status Patient Orientation: Normal For Age Attachments: Oxygen Transfers Functional [place] Measure 0=Not Assessed/NA 4=Minimal Assistance 1=Total Assistance 5=Supervision or Setup 2=Maximal Assistance 6=Modified [place] 3=Moderate Assistance 7=Complete IndependenceIRFPAI Quality Coding Scale 6 Independent with activity with or without an assistive device 5 Patient requires set up or clean up by helper. Patient completes activity by themselves 4 Supervision or touching assist (CGA). [place] provide cues , steadying assist 3 The helper provides less than half the effort to complete the activity 2 The helper provides more than half the effort to complete the activity 1 Dependent. The helper does all the effort to complete an activity 7 Patient refused to complete or attempt activity 9 The patient did not perform the activity before the current illness or injury 88 Not attempted due to Medical conditions or safety concerns Transfers (B, C, W/C) (FIM): 4 Scootin Sit to/from Stand: 4 close CGA for safety with transfers Exercises Standing: Marching (10 reps x 4 sets), Sit to Stand (x 4 sets) standing exercises to promote increasing pulmonary function Assessment SAO2 decrease with exercises to 80% with 30 sec recovery to 94%. PT to increase activity as tolerated by patient. PT Usp Goals Usp Goals PT Usp Goals Time Frame: Oct 25, 2016 Transfers (B,C,W/C) (FIM): 6 Gait (FIM): 5 Distance: household distance Gait Assistive Device: FWW PT Plan Treatment/Plan Treatment Plan: Continue Plan of Care Treatment Plan: Bed Mobility, Education, Functional Activity Amanda, Functional Strength, Gait, Safety, Therapeutic Exercise, Transfers Treatment Duration: Oct 25, 2016 Visits Per Week: 5-6 Time/GCodes Time In: 922 Time Out: 934 Total Billed Treatment Time: 12 Total Billed Treatment 1 visit FA 12 min NIKHIL LEBLANC PT Oct 22, 2016 09:43
[2016-10-22] MEDS: ENOXAPARIN 300 MG/3 ML (LOVENOX) MULTI-DOSE VIAL SQ SCH ×2 (10:29→22:30)
--- NOTE | 2016-10-22 16:04 | Occupational Ther Daily Note ---
OT Current Status-Daily Note Subjective Pt. does not report pain. Appearance Pt. is sitting up in chair. Has 10 L O2 on. Sats at 92%. Mental Status/Objective Patient Orientation: Person, Place, Time, Situation Functional [place] Measure 0=Not Assessed/NA 4=Minimal Assistance 1=Total Assistance 5=Supervision or Setup 2=Maximal Assistance 6=Modified [place] 3=Moderate Assistance 7=Complete [place] Attachments: Oxygen ADL-Treatment Lower Body Dressing (FIM): 3 (Pt. is able to get socks off with dressing stick , but is only able to get the left one on with sock aide.) Pt. practiced doffing/donning socks with adaptive equipment, as he has this at home. Spouse in room. Noted that pt. has significant swelling in all limbs and some scrapes on left toes that his states he got when he "fell at the half-way." Task of getting off/on socks with equipment was difficult for pt , as he continually would become SOA. Required frequent rest breaks to regain breath. Sats would drop from 92%-78%, but would come back up with rest. Tolerated treatment well with increased rest. OT brought theraband as well, and educated in exercises. All needs met in room. Education OT Patient Education: Correct positioning, Energy conservation, Modified ADL techniques, Progress toward Goal/Update tx plan, Purpose of tx/functional activities, Reviewed precautions, Rehab process Teaching Recipient: Patient, Significant Other Teaching Methods: Demonstration, Discussion Response to Teaching: Verbalize Understanding, Return Demonstration OT Short Term Goals Short Term Goals 1=Demonstrate adherence to instructed precautions during ADL tasks. 2=Patient will verbalize/demonstrate understanding of assistive devices/ modifications for ADL. 3=Patient will improve strength/tolerance for activity to enable patient to perform ADL's. OT Fdc Goals Fdc Goals Time Frame: November 02, 2016 Eating (FIM): 6 Grooming(FIM): 6 Upper Body Dressing(FIM): 5 Lower Body Dressing(FIM): 4 Toileting(FIM): 4 Toilet/Commode Transfer(FIM): 4 Additional Goals: 1-Demonstrate ADL Tasks, 2-Verbalize Understanding, 3- ImproveStrength/Amanda 1=Demonstrate adherence to instructed precautions during ADL tasks. 2=Patient will verbalize/demonstrate understanding of assistive devices/ modifications for ADL. 3=Patient will improve strength/tolerance for activity to enable patient to perform ADL's. OT Education/Plan Problem List/Assessment Assessment: Decreased Activ Tolerance, Decreased UE Strength, Dependent Transfers, Impaired Bed Mobility, Impaired Funct Balance, Impaired I ADL's, Impaired Self-Care Skills Pt demonstrates impaired strength, activity tolerance, mobility and ADL functioning. Pt to benefit from skilled OT intervention for ADL training, transfers, strengthening, adaptive equipment training as needed and safety education to maximize level of function and allow safe discharge plan. Discharge Recommendations Plan/Recommendations: Continue POC Therapy D/C Recommendations: Home w/ Family Support, Occupational Therapy Home Care, Scheduled Assistance Barriers to Progress Pt. has a difficult time keeping O2 sats up. Becomes SOA with most activities. Treatment Plan/Plan of Care Treatment,Training & Education: Yes Patient would benefit from OT for education, treatment and training to promote independence in ADL's, mobility, safety and/or upper extremity function for ADL' s. Plan of Care: ADL Retraining, Functional Mobility, UE Funct Exercise/Act Treatment Duration: Nov 02, 2016 Visits Per Week: 5 Agreement: Yes Rehab Potential: Guarded Time/GCodes Start Time: 14:40 Stop Time: 15:05 Total Time Billed (hr/min): 25 Billed Treatment Time 1, EX x 2 BASIM LYNN OT Oct 22, 2016 16:04
[2016-10-22] MEDS: NIACIN 500 MG TABLET PO SCH (18:08)
[2016-10-22] MEDS: FUROSEMIDE 40 MG/4 ML INJ (LASIX) IV SCH (18:08)
[2016-10-22] MEDS: ALFUZOSIN HCL 10 MG TAB (UROXATRAL) PO SCH (20:30)
[2016-10-22] MEDS: inSUlin DETERMIR 1 UNIT/0.01 ML (LEVEMIR) CHARGE PER UNIT SQ SCH (22:30)
[2016-10-23] MEDS: RT-ALBUTEROL/IPRATROPIUM 3 ML (DUONEB) VIAL INH SCH ×4 (02:18→15:06)
[2016-10-23 03:40] VITALS: BP 151/82
[2016-10-23 05:54] LABS: BASOPHILS % (AUTO) 0 % (0-10); EOSINOPHILS # (AUTO) 0.1 10^3/uL (0.0-0.3); EOSINOPHILS % (AUTO) 1 % (0-10); LYMPHOCYTES # (AUTO) 0.8 X 10^3 (1.0-4.0); LYMPHOCYTES % (AUTO) 12 % (12-44); MEAN CORPUSCULAR HEMOGLOBIN 32 PG (25-34); MEAN CORPUSCULAR HGB CONC 34 G/DL (32-36); MEAN CORPUSCULAR VOLUME 94 FL (80-99); MEAN PLATELET VOLUME 9.5 FL (7.4-10.4); MONOCYTES % (AUTO) 15 % (0-12); NEUTROPHILS % (AUTO) 72 % (42-75); PLATELET COUNT 165 10^3/uL (130-400); RED BLOOD COUNT 2.87 10^6/uL (4.35-5.85); RED CELL DISTRIBUTION WIDTH 14.2 % (10.0-14.5); WHITE BLOOD COUNT 6.9 10^3/uL (4.3-11.0)
[2016-10-23 06:07] LABS: INR 1.2 (0.8-1.4); PROTHROMBIN TIME PATIENT 14.6 SEC (12.2-14.7)
[2016-10-23 06:21] LABS: ALBUMIN 2.8 G/DL (3.2-4.5); BILIRUBIN,TOTAL 0.6 MG/DL (0.1-1.0); CALCIUM 9.3 MG/DL (8.5-10.1); CREATININE SERUM 1.35 MG/DL (0.60-1.30); PHOSPHORUS 3.2 MG/DL (2.3-4.7)
[2016-10-23] MEDS: FUROSEMIDE 40 MG/4 ML INJ (LASIX) IV SCH (06:29)
--- NOTE | 2016-10-23 06:55 | Pulmonary Progress Note ---
Subjective Subjective/Events-last exam Pt is currently using BiPAP Exam Exam Vital Signs Date Time Temp Pulse Resp B/P Pulse Ox O2 Delivery O2 Flow Rate FiO2 10/23/16 03:55 96 23 92 60.00 10/23/16 03:40 97.2 92 20 151/82 97 NIV Bilevel 60.00 10/23/16 02:18 102 20 98 60.00 10/23/16 01:00 80 10/23/16 00:00 81 26 99 60.00 10/22/16 23:55 98.8 86 24 153/88 99 NIV Bilevel 60.00 10/22/16 22:29 102 24 98 60.00 10/22/16 21:12 85 18 97 60.00 10/22/16 20:40 98.5 106 28 138/71 90 NIV Bilevel 60.00 10/22/16 20:00 93 NIV/Bilevel 60 10/22/16 19:17 88 24 97 60.00 10/22/16 19:00 77 10/22/16 17:22 85 31 98 60.00 10/22/16 15:30 98.2 77 26 153/70 92 Vapotherm 10.00 10/22/16 14:26 98 10.00 90 10/22/16 14:18 94 15.00 100 10/22/16 12:54 81 10/22/16 12:00 98.0 77 26 131/69 95 Vapotherm 15.00 10/22/16 12:00 91 15.00 10/22/16 10:14 93 15.00 100 10/22/16 08:00 97.2 90 26 123/67 92 Vapotherm 15.00 10/22/16 08:00 91 15.00 I & O 10/23/16 07:00 Intake Total 1140 ml Output Total 2150 ml Balance -1010 ml General Appearance: No Apparent Distress Obese HEENT: Normal ENT Inspection Neck: Supple Respiratory: Lungs Clear Normal Breath Sounds No Accessory Muscle Use Cardiovascular: No Gallop Irregularly Irregular Capillary Refill: Less Than 3 Seconds Extremity: Pedal Edema Neurologic/Psychiatric: Alert Oriented x3 Skin: Normal Color Warm/Dry Lymphatic: No Adenopathy Results Lab Laboratory Tests 10/22/16 04:07 10/23/16 05:35 Assessment/Plan Assessment/Plan ACute on chronic respiratory failure s/p aspiration -IVF are hep locked -Will trial pt off biPAP this AM Acute renal failure -monitor CHF diastolic morbid obesity Clinical Quality Measures DVT/VTE Risk/Contraindication: Risk Factor Score Per Nursin RFS Level Per Nursing on Admit: 4+=Very High KEIKO VALENZUELA DO Oct 23, 2016 06:55
--- NOTE | 2016-10-23 07:53 | Cardiology Progress Note ---
Subjective Subjective/Events-last exam patient is laying down in bed, using BiPAP, significant edema and shortness of breath Review of Systems General: No Chills, No Night Sweats, No Fatigue, No Malaise, No Appetite, No Other HEENT: No Head Aches, No Visual Changes, No Eye Pain, No Ear Pain, No Dysphasia , No Sinus Congestion, No Post Nasal Drip, No Sore Throat, No Other Pulmonary: Dyspnea CoughNo Pleuritic Chest Pain, No Other Cardiovascular: : EdemaNo: Chest Pain, Lt Headedness, Orthopnea, Other, Palpitations, Paroxysmal Noc. Dyspnea Objective-Cardiology Exam Last Set of Vital Signs Vital Signs 10/22/16 10/23/16 10/23/16 20:00 03:40 07:42 Temp 97.2 Pulse 102 Resp 20 B/P 151/82 Pulse Ox 98 O2 Delivery NIV Bilevel O2 Flow Rate 60.00 FiO2 60 Capillary Refill : Less Than 3 Seconds I&O Intake and Output 10/23/16 00:00 Intake Total 1640 ml Output Total 1900 ml Balance -260 ml Intake Oral 1640 ml Output Urine Total 1900 ml General: Alert, Oriented X3, Cooperative, Mild Distress HEENT: Atraumatic, PERRLA Neck: Supple, No Thyromegaly Lungs: Normal Air Movement, Other (bilateral wheezing, rhonchi) Heart: Normal S1, Normal S2, No Murmurs, Other (irregular rhythm, +2-3 pedal edema) Abdomen: Normal Bowel Sounds, Soft, No Tenderness, No Hepatosplenomegaly, No Masses Extremities: No Clubbing, No Cyanosis, No Tenderness/Swelling Skin: No Breakdown, No Significant Lesion, Other (erythema and edema) Neuro: Normal Speech, Strength at 5/5 X4 Ext, Normal Tone, Sensation Intact Psych/Mental Status: Mental Status NL, Mood NL Results Lab Laboratory Tests 10/23/16 05:35 A/P-Cardiology Admission Diagnosis Change in mental status Hypoglycemia COPD Congestive heart failure, acute on chronic left ventricular diastolic dysfunction, hypertensive heart disease Acute respiratory failure Assessment/Plan Status post acute respiratory failure, worsening dyspnea today and significant edema, I will give additional dose of Lasix. Chronic renal failure, had transient oliguria, given IV fluid, became more edematous and short of breath, now receiving Lasix, I will give additional dose of IV Lasix and monitor Electrolyte imbalance, receiving IV Lasix, monitor closely. Severe COPD, sleep apnea, using C Pap at home, generalized weakness, severe dyspnea with exertion, continue with physical therapy. Permanent atrial fibrillation, Controlled rate, continue on current medication monitor heart rate. [id number] score is 4, yearly risk of stroke without oral anticoagulation is 4 percent. restarted on Coumadin, I will use Lovenox bridging. Monitor for hematuria Hypertension, borderline hypotensive, receiving IV fluid, continue to monitor Diastolic dysfunction, acute on chronic left ventricular diastolic dysfunction, hypertensive heart disease- most recent 2D Echo 10/16/16 revealed EF 60%, acute on chronic left ventricular diastolic dysfunction. Hypertensive heart disease, continue on current medications and monitor as an outpatient. Questionable coronary artery disease, patient has multiple risk factors, has been refusing to have a stress test. Peripheral vascular disease, patient had RANULFO done in February 2015, it was 0.54 on the right, 0.77 on the left, patient had angiogram with complex intervention with angioplasty to the right anterior tibial artery, the right peroneal artery with good results with Dr. Gutiérrez. 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 Patient was staged for angiogram and intervention of the left leg then Dr. Gutiérrez has left. Most recent RANULFO done October 2015 within normal limits. Continue to monitor. Chronic venous insufficiency, seen by Dr. Castro in [place], status post ablation by Dr. Castro on the right side. Hyperlipidemia, continue on current medications and monitor. Diabetes mellitus, status post episode of severe hypoglycemia, better at this time, managed by primary care physician Diabetic neuropathy. Mild bilateral carotid stenosis, last ultrasound was done in March 2016. Continue to monitor. Gross hematuria, reporting improvement, refused urology consultation Clinical Quality Measures DVT/VTE Risk/Contraindication: Risk Factor Score Per Nursin RFS Level Per Nursing on Admit: 4+=Very High KEELEY ROSSI MD Oct 23, 2016 07:53
[2016-10-23 08:00] VITALS: BP 118/62
[2016-10-23] MEDS ORDERED: FUROSEMIDE 40 MG/4 ML INJ (LASIX) IVP NR (08:17)
[2016-10-23] MEDS: MAGNESIUM OXIDE (MAG-OX)400 MG TAB PO SCH (09:00)
[2016-10-23] MEDS: DILTIAZEM 240 MG (CARDIZEM CD) CAP PO SCH (09:00)
[2016-10-23] MEDS: ASPIRIN E.C. 81 MG (ECOTRIN) TAB PO SCH (09:00)
[2016-10-23] MEDS: ATENOLOL 25 MG (TENORMIN) TAB PO SCH (09:00)
[2016-10-23] MEDS: LOSARTAN 50 MG (COZAAR) TAB PO SCH (09:00)
[2016-10-23] MEDS: GABAPENTIN 300 MG (NEURONTIN) CAP PO SCH ×2 (09:00→14:10)
[2016-10-23] MEDS: ENOXAPARIN 300 MG/3 ML (LOVENOX) MULTI-DOSE VIAL SQ SCH (09:01)
--- NOTE | 2016-10-23 10:32 | Discharge Summary-Hospitalist ---
Diagnosis/Chief Complaint Date of Admission Oct 19, 2016 at 04:40 Date of Discharge Admission Diagnosis 1. Aspiration pneumonitis vs COPD exacerbation 2. hypoxia 3. hypoglycemia 4. DM 5. Heart failure with preserved ejection fraction 6. chronic afib 7. hyperkalemia 8. oliguria 9. hematuria 10. hypotension Discharge Diagnosis Assessment: 1. acute respiratory failure secondary to aspiration-no evidence of pneumonia will DC antibiotics 2. Hypoglycemia resolved 3. Chronic respiratory failure secondary to hypercapnia-currently compensated but still requiring biPAP so consulting [facility] for better long-term plan and patient and family agrees 4. Acute on chronic congestive heart failure secondary to A. fib and diastolic dysfunction 5. Hematuria- having been off aspirin and Coumadin. Will use Lovenox cautiously at 120mg SQ BID 6. Chronic atrial fibrillation good rate control 7. Morbid obesity 8. Type II diabetes labile in nature 9. Hypoglycemia resolved 10. Debility 11. abdominal distention will use suppository to try and get the bowels to move. 12. Oliguria with hypotension and hyperkalemia now resolved with gentle IVF 13. Delirium Pt continues to be complex management. Conferred with Dr Herring Palliative care consulted each and every time due to end stage illness status Checked meds and labs + BM Confusion last night now cleared AFVSS, O2 sat 90% on 6L high flow currently but required biPAP yesterday/last night Irr Irr, coarseness w/wheezing 1+ edema Laboratory Tests 10/23/16 05:35 Assessment: 1. acute respiratory failure secondary to aspiration-no evidence of pneumonia will DC antibiotics 2. Hypoglycemia resolved 3. Chronic respiratory failure secondary to hypercapnia-currently compensated 4. Acute on chronic congestive heart failure secondary to A. fib and diastolic dysfunction 5. Hematuria- having been off aspirin and Coumadin. Will use Lovenox cautiously 6. Chronic atrial fibrillation good rate control 7. Morbid obesity 8. Type II diabetes labile in nature 9. Hypoglycemia resolved 10. Debility 11. abdominal distention will use suppository to try and get the bowels to move. 12. Oliguria with hypotension and hyperkalemia 13. Delirium Plan: -s/p fluid bolus currently due to hypotension overnight and low urinary output -Lasix due to volume overload -Bipap as needed as his O2 is 90% during patient interview on 6L by NC -resp therapy with breathing tx's -pulm consult -cards consult -palliative care consult Poor prognosis SB evaluation Insulin will be monitored closely especially at [facility] Hospital Visit/Course This is a 80-year-old white male discharged recently after a prolonged hospitalization for respiratory failure congestive heart failure and declining physical status. The patient had been discharged via [facility] without complication. While there he was given a full dose of his Humalog without having eaten an adequate dinner. In the middle the night he was found to be unresponsive. Nursing staff attempted to give him orange juice by mouth. Unfortunately he aspirated the orange juice and was brought to the emergency room in acute respiratory failure with hypoglycemia.the patient was given multiple doses of D50 with taoist of his blood sugar. He however developed mild congestive failure and respiratory insufficiency secondary to aspiration. He has been maintained on BiPAP overnight and has had oxygen saturations in the upper 80's lower 90's. Despite his recent illness he states he feels well and "has never really been sick". This is concerning he is not really understanding his disease process as he has multiple comorbidities and is not objectively doing well. 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 Pt states that he is having BMs. Physical exam stable. Pt denies having any pain. Dr. Mortensen discusses working with [facility] in [place]. Pt agrees to explore this option. no fever vital signs stable, pleasant, oriented 3 but very chronically ill sitting at the side of the bed with mild tachypnea on high flow oxygen Irregular irregular rhythm, decreased breath sounds all [place] and mild wheezing noted mild tachypnea but not in any distress 1+ edema lower extremities with venous stasis changes Plan: Swingbed? Consult [facility]? Midline insertion Scribed by Shalom Alexandra under the direct supervision of Dr. Mortensen. Hospital course: Patient had a lengthy hospital course he remained in ICU for 3 days due to respiratory failure requiring BiPAP and high flow oxygen along with pulmonary consultation. Hypoglycemia resolved quickly with glucose administration but volume overload occurred along with exacerbation of COPD making it more more difficult for patient to recover due to the severity of COPD. IV access was lost of midline was placed and patient was monitor closely due to history of hematuria last hospital visit requiring the discontinuation of Coumadin and aspirin but Lovenox was added at 1 mg/kg during this hospital stay and did not have any gross hematuria at time of discharge. Creatinine remained stable for the renal insufficiency has and his diabetes was well- controlled on insulin with close monitoring for hypoglycemia. Overall his prognosis extremely poor but he was given information for hospice but they did not seem ready for that step yet even though I think that would be reasonable so I consulted [facility] for long-term COPD management to try to decrease readmissions but that would not change likely the prognosis long-term. Discharge Summary Discharge Physical Examination Allergies: Coded Allergies: sulfamethoxazole (Verified Allergy, Mild, RASH, 10/31/15) trimethoprim (Verified Allergy, Mild, RASH, 10/31/15) Vitals & I&Os Vital Signs Date Time Temp Pulse Resp B/P Pulse Ox O2 Delivery O2 Flow Rate FiO2 10/23/16 08:00 96.2 98 24 118/62 99 NIV Bilevel 60.00 10/22/16 20:00 60 Hospital Course Labs (last 24 hrs) Laboratory Tests 10/22/16 16:20: Glucometer 144H 10/22/16 22:18: Glucometer 225H 10/23/16 05:35: Alanine Aminotransferase (ALT/SGPT) 28, Albumin 2.8L, Alkaline Phosphatase 57, Anion Gap 8, Aspartate Amino Transf (AST/SGOT) 18, BUN/Creatinine Ratio 21, Basophils # (Auto) 0.0, Basophils (%) (Auto) 0, Blood Urea Nitrogen 28H, Calcium Level 9.3, Carbon Dioxide Level 25, Chloride Level 106, Creatinine 1.35H , Eosinophils # (Auto) 0.1, Eosinophils (%) (Auto) 1, Estimat Glomerular Filtration Rate 51, Glucose Level 135H, Hematocrit 27L, Hemoglobin 9.2L, INR Comment 1.2, Lymphocytes # (Auto) 0.8L, Lymphocytes (%) (Auto) 12, Magnesium Level 2.0, Mean Corpuscular Hemoglobin 32, Mean Corpuscular Hemoglobin Concent 34, Mean Corpuscular Volume 94, Mean Platelet Volume 9.5, Monocytes # (Auto) 1.0 , Monocytes (%) (Auto) 15H, Neutrophils # (Auto) 5.0, Neutrophils (%) (Auto) 72 , Phosphorus Level 3.2, Platelet Count 165, Potassium Level 4.0, Prothrombin Time 14.6, Red Blood Count 2.87L, Red Cell Distribution Width 14.2, Sodium Level 139, Total Bilirubin 0.6, Total Protein 5.0L, White Blood Count 6.9 Microbiology 10/19/16 Blood Culture - Preliminary, Resulted No growth 10/19/16 MRSA Screen - Final, Complete MRSA not isolated Pending Labs Laboratory Tests 10/23/16 05:35: Alanine Aminotransferase (ALT/SGPT) 28, Albumin 2.8, Alkaline Phosphatase 57, Anion Gap 8, Aspartate Amino Transf (AST/SGOT) 18, BUN/Creatinine Ratio 21, Basophils # (Auto) 0.0, Basophils (%) (Auto) 0, Blood Urea Nitrogen 28, Calcium Level 9.3, Carbon Dioxide Level 25, Chloride Level 106, Creatinine 1.35, Eosinophils # (Auto) 0.1, Eosinophils (%) (Auto) 1, Estimat Glomerular Filtration Rate 51, Glucose Level 135, Hematocrit 27, Hemoglobin 9.2, INR Comment 1.2, Lymphocytes # (Auto) 0.8, Lymphocytes (%) (Auto) 12, Magnesium Level 2.0, Mean Corpuscular Hemoglobin 32, Mean Corpuscular Hemoglobin Concent 34, Mean Corpuscular Volume 94, Mean Platelet Volume 9.5, Monocytes # (Auto) 1.0 , Monocytes (%) (Auto) 15, Neutrophils # (Auto) 5.0, Neutrophils (%) (Auto) 72, Phosphorus Level 3.2, Platelet Count 165, Potassium Level 4.0, Prothrombin Time 14.6, Red Blood Count 2.87, Red Cell Distribution Width 14.2, Sodium Level 139, Total Bilirubin 0.6, Total Protein 5.0, White Blood Count 6.9 Discharge Home Medications: Active Scripts Active Reported Novolog Mix 70-30 Flexpen Syrn (Insuln Asp Prt/Insulin Aspart) 300 Units/3 Ml Solution 32 Units SQ HS Turmeric (Turmeric Root Extract) 500 Mg Capsule 500 Mg PO DAILY Losartan Potassium 50 Mg Tablet 50 Mg PO DAILY Furosemide 40 Mg Tablet 40 Mg PO 0700,1400 Atenolol 25 Mg Tablet 25 Mg PO DAILY Prednisone 10 Mg Tab 10 Mg PO DAILY Gabapentin 300 Mg Capsule 300 Mg PO TID Probiotic (Lactobacillus Acidophilus) 1 Each Capsule 1 Cap PO DAILY Iprat-Albut 0.5-3(2.5) mg/3 ml (Ipratropium/Albuterol Sulfate) 3 Ml Ampul.neb 3 Ml NEB Q4H PRN Multivitamins (Multivitamin) 1 Each Tablet 1 Tab PO DAILY [Nattokinase] 2,000 Units PO DAILY Niacin (Niacinamide) 500 Mg Tablet 500 Mg PO DAILY Vitamin D3 (Cholecalciferol (Vitamin D3)) 2,000 Unit Capsule 2,000 Unit PO DAILY Novolog Mix 70-30 Flexpen Syrn (Insuln Asp Prt/Insulin Aspart) 300 Units/3 Ml Solution 30 Units SQ DAILY Cartia Xt (Diltiazem HCl) 240 Mg Cap.er.24h 480 Mg PO DAILY Tamsulosin HCl 0.4 Mg Cap.er.24h 0.4 Mg PO DAILY Klor-Con M20 (Potassium Chloride) 20 Meq Tab.er.prt 40 Meq PO BID TAKES 2 (20 MEQ) TABLETS Magnesium (Magnesium Oxide) 500 Mg Tablet 500 Mg PO HS Instructions to patient/family Please see electonic discharge instructions given to patient. Clinical Quality Measures DVT/VTE Risk/Contraindication: Risk Factor Score Per Nursin RFS Level Per Nursing on Admit: 4+=Very High SASCHA MORTENSEN DO Oct 23, 2016 10:32
[2016-10-23] MEDS: inSUlin ASPART (NovoLOG) 1 UNIT/0.01 ML (CHARGE PER UNIT) SC SCH ×2 (11:53→16:00)
[2016-10-23 12:00] VITALS: BP 96/60
--- NOTE | 2016-10-23 14:52 | Occupational Ther Daily Note ---
OT Current Status-Daily Note Subjective Pt. states that he is feeling better, but that he is still short of air. Appearance Pt. is up on BSC. Nursing is assessing him. Agrees to treatment. Mental Status/Objective Patient Orientation: Person, Place Functional [place] Measure 0=Not Assessed/NA 4=Minimal Assistance 1=Total Assistance 5=Supervision or Setup 2=Maximal Assistance 6=Modified [place] 3=Moderate Assistance 7=Complete [place] ADL-Treatment Toileting (FIM): 2 (Pt. attempted to cleanse rear clay area in stance after toileting from BSC. Stood with walker. Unable to gain balance however to let go of walker to cleanse clay area. Required max assist for this.) Transfers (B, C, W/C) (FIM): 4 (Pt. able to stand with min assist from BSC and transfer to bedside. Stood again later to transfer to BSC with min assist.) Toilet/Commode Transfer (FIM): 4 After toileting, pt. agreed to bilateral UE exercises with red theraband. Completed 4 exercises x 15 reps each with red theraband in all planes. Tolerated this well with frequent rest breaks. Pt. on 10 L 02. All needs met in room. Pt. requested to get back on BSC. Transferred with min assist. Nursing in room with pt. Education OT Patient Education: Modified ADL techniques, Progress toward Goal/Update tx plan, Purpose of tx/functional activities, Reviewed precautions, Rehab process, Transfer techniques Teaching Recipient: Patient Teaching Methods: Demonstration, Discussion Response to Teaching: Verbalize Understanding, Return Demonstration OT Short Term Goals Short Term Goals 1=Demonstrate adherence to instructed precautions during ADL tasks. 2=Patient will verbalize/demonstrate understanding of assistive devices/ modifications for ADL. 3=Patient will improve strength/tolerance for activity to enable patient to perform ADL's. OT [facility] Goals Pediatric Immunologist Goals Time Frame: November 02, 2016 Eating (FIM): 6 Grooming(FIM): 6 Upper Body Dressing(FIM): 5 Lower Body Dressing(FIM): 4 Toileting(FIM): 4 Toilet/Commode Transfer(FIM): 4 Additional Goals: 1-Demonstrate ADL Tasks, 2-Verbalize Understanding, 3- ImproveStrength/Amanda 1=Demonstrate adherence to instructed precautions during ADL tasks. 2=Patient will verbalize/demonstrate understanding of assistive devices/ modifications for ADL. 3=Patient will improve strength/tolerance for activity to enable patient to perform ADL's. OT Education/Plan Problem List/Assessment Assessment: Decreased Activ Tolerance, Decreased UE Strength, Dependent Transfers, Impaired Bed Mobility, Impaired Funct Balance, Impaired I ADL's, Impaired Self-Care Skills, Restricted Funct UE ROM Pt demonstrates impaired strength, activity tolerance, mobility and ADL functioning. Pt to benefit from skilled OT intervention for ADL training, transfers, strengthening, adaptive equipment training as needed and safety education to maximize level of function and allow safe discharge plan. Discharge Recommendations Plan/Recommendations: Continue POC Therapy D/C Recommendations: Home w/ Family Support, Occupational Therapy Home Care, Scheduled Assistance Treatment Plan/Plan of Care Treatment,Training & Education: Yes Patient would benefit from OT for education, treatment and training to promote independence in ADL's, mobility, safety and/or upper extremity function for ADL' s. Plan of Care: ADL Retraining, Functional Mobility, UE Funct Exercise/Act Treatment Duration: Nov 02, 2016 Visits Per Week: 5 Agreement: Yes Rehab Potential: Guarded Time/GCodes Start Time: 08:45 Stop Time: 09:00 Total Time Billed (hr/min): 15 Billed Treatment Time 1, EX BASIM LYNN OT Oct 23, 2016 14:52
[2016-10-23 15:30] VITALS: BP 133/65
[2016-10-23] MEDS ORDERED: ENOX300V3 SQ (16:27)
[2016-10-23] MEDS ORDERED: NIAC500T9 PO (16:27)
[2016-10-23] MEDS ORDERED: INSU100V16 SC (16:27)
[2016-10-23] MEDS ORDERED: ASPI-983 PO (16:27)
[2016-10-23] MEDS ORDERED: FURO10VI IV (16:27)
[2016-10-23] MEDS ORDERED: INSU100V5 SQ (16:27)
[2016-10-23] MEDS ORDERED: WARF5TAB PO (16:30)
[2016-10-23 17:30] VITALS: BP 133/65
== END 2016-10-23 17:30 | DRG 205 ==
LOC: EDUNIT# 02:40 → ER 02:42 → ICU 04:40 → 4TH 10-22 14:14
PROVIDERS: ADMIT Internal Medicine; ATTEND Internal Medicine
DX: T17.920A Food in respiratory tract, part unspecified causing asphyxiation, initial encounter (principal); J96.22 Acute and chronic respiratory failure with hypercapnia; E11.641 Type 2 diabetes mellitus with hypoglycemia with coma; I13.0 Hypertensive heart and chronic kidney disease with heart failure and stage 1 through stage 4 chronic kidney disease, or unspecified chronic kidney disease; I50.33 Acute on chronic diastolic (congestive) heart failure; J44.1 Chronic obstructive pulmonary disease with (acute) exacerbation; N17.9 Acute kidney failure, unspecified; Z68.41 Body mass index [BMI] 40.0-44.9, adult; N18.9 Chronic kidney disease, unspecified; E66.01 Morbid (severe) obesity due to excess calories; I48.2 Chronic atrial fibrillation; E11.42 Type 2 diabetes mellitus with diabetic polyneuropathy; R31.0 Gross hematuria; G47.30 Sleep apnea, unspecified; I65.23 Occlusion and stenosis of bilateral carotid arteries; I87.2 Venous insufficiency (chronic) (peripheral); E78.5 Hyperlipidemia, unspecified; Z87.891 Personal history of nicotine dependence; Z79.4 Long term (current) use of insulin; Z99.81 Dependence on supplemental oxygen; Y92.122 Bedroom in nursing home as the place of occurrence of the external cause
CPT/HCPCS: 36415; 51702; 71010; 80053; 80202; 82805; 82962; 83605; 83735; 83880; 84100; 84484; 85007; 85025; 85027; 85610; 85730; 87040; 87081; 93041; 94640; 94660; 94664; 96361; 96365; 96375; 96376

== ENCOUNTER 2016-12-26 11:46 | Inpatient (IN) | payer MEDICARE, BC ==
[~2016-12-26] VITALS: Ht 172.7 cm; Wt 107.1 kg
[~2016-12-26 11:46] MED LIST changes: +ENOX300V3 SQ; +FURO10VI IV; +INSU100V16 SC; +INSU100V5 SQ; +NIAC500T9 PO; -RT-ALBUTEROL/IPRATROPIUM 3 ML (DUONEB) VIAL ONE; +TURM500C7 PO
[2016-12-26] MEDS ORDERED: NS IV 500 ML 500 ML IV ONE (12:12)
[2016-12-26 12:26] LABS: BASOPHILS % (AUTO) 0 % (0-10); EOSINOPHILS # (AUTO) 0.1 10^3/uL (0.0-0.3); EOSINOPHILS % (AUTO) 1 % (0-10); LYMPHOCYTES # (AUTO) 1.2 X 10^3 (1.0-4.0); LYMPHOCYTES % (AUTO) 13 % (12-44); MEAN CORPUSCULAR HEMOGLOBIN 27 PG (25-34); MEAN CORPUSCULAR HGB CONC 32 G/DL (32-36); MEAN CORPUSCULAR VOLUME 83 FL (80-99); MEAN PLATELET VOLUME 10.4 FL (7.4-10.4); MONOCYTES # (AUTO) 1.5 X 10^3 (0.0-1.0); MONOCYTES % (AUTO) 15 % (0-12); NEUTROPHILS # (AUTO) 6.8 X 10^3 (1.8-7.8); NEUTROPHILS % (AUTO) 71 % (42-75); PLATELET COUNT 213 10^3/uL (130-400); RED BLOOD COUNT 2.96 10^6/uL (4.35-5.85); RED CELL DISTRIBUTION WIDTH 15.3 % (10.0-14.5); WHITE BLOOD COUNT 9.5 10^3/uL (4.3-11.0)
--- NOTE | 2016-12-26 12:29 | ED General ---
General Stated Complaint: LOW BLOOD PRESSURE Source of Information: Patient, Family Exam Limitations: No Limitations History of Present Illness Time Seen by Provider: 11:50 Initial Comments Here with weakness that has progressed and apparently low blood pressure. He was seen at an outside facility and noted to have low blood pressure there so was sent here for evaluation initial blood pressure here was in the 100s systolic range. Patient is mentating well and answering questions well. He does admit to weakness and some cough. He has had multiple illnesses over the last couple of months requiring hospitalization and rehospitalization as well as long-term hospital care. He had Soriano catheter placement and then replacement recently. There is apparently some purulent drainage there. He admits to not eating or drinking well. Denies current fever or vomiting. Timing/Duration: 4-5 Days Severity: Moderate Associated Systoms: No Chest Pain, Cough, No Fever/Chills Allergies and Home Medications Allergies Coded Allergies: sulfamethoxazole (Verified Allergy, Mild, RASH, 10/31/15) trimethoprim (Verified Allergy, Mild, RASH, 10/31/15) Home Medications Aspirin 81 Mg Tablet.dr, 81 MG PO DAILY for 30 Days Prescribed by: SASCHA MORTENSEN on 10/23/161626 Atenolol 25 Mg Tablet, 25 MG PO DAILY, (Reported) Cholecalciferol (Vitamin D3) 2,000 Unit Capsule, 2,000 UNIT PO DAILY, (Reported) Diltiazem HCl 240 Mg Cap.er.24h, 480 MG PO DAILY, (Reported) Enoxaparin Sodium 300 Mg/3 Ml Vial, 120 MG SQ BID@10,22 for 30 Days Prescribed by: SASCHA MORTENSEN on 10/23/161626 Furosemide 10 Mg/1 Ml Vial, 40 MG IV LASIXBID for 30 Days Prescribed by: SASCHA MORTENSEN on 10/23/161626 Gabapentin 300 Mg Capsule, 300 MG PO TID, (Reported) Insulin Aspart 100 Unit/1 Ml Susp, 6 UNIT SC AC for 30 Days Prescribed by: SASCHA MORTENSEN on 10/23/161626 Insulin Determir 1,000 Units/10 Ml Soln, 20 UNIT SQ HS for 30 Days Prescribed by: SASCHA MORTENSEN on 10/23/161626 Ipratropium/Albuterol Sulfate 3 Ml Ampul.neb, 3 ML NEB Q4H PRN for SHORTNESS OF BREATH, (Reported) Lactobacillus Acidophilus 1 Each Capsule, 1 CAP PO DAILY, (Reported) Losartan Potassium 50 Mg Tablet, 50 MG PO DAILY, (Reported) Magnesium Oxide 500 Mg Tablet, 500 MG PO HS, (Reported) Niacin 500 Mg Tablet, 500 MG PO DAILY@1700 for 30 Days Prescribed by: SASCHA MORTENSEN on 10/23/16 1627 Prednisone 10 Mg Tab, 10 MG PO DAILY, (Reported) Tamsulosin HCl 0.4 Mg Cap.er.24h, 0.4 MG PO DAILY, (Reported) Warfarin Sodium 5 Mg Tablet, 5 MG PO DAILY for 30 Days Prescribed by: SASCHA MORTENSEN on 10/23/16 1630 Constitutional: see HPI, No chills, No fever EENTM: no symptoms reported Respiratory: see HPI, cough, No short of breath Cardiovascular: No chest pain, No palpitations Gastrointestinal: No abdominal pain, loss of appetite, No nausea, No vomiting Genitourinary: see HPI Musculoskeletal: back pain, muscle pain Skin: no symptoms reported Psychiatric/Neurological: No Symptoms Reported All Other Systems Reviewed Negative Unless Noted: Yes Past Wwumexq-Sxsurb-Ixeeme Hx Patient Social History Alcohol Use: Denies Use Recreational Drug Use: No Smoking Status: Former Smoker Type Used: Cigarettes Former Smoker/When Quit: Apr 24, 2005 Recent Foreign Travel: No Contact w/Someone Who Travel: No Recent Hopitalizations: Yes (Pneumonia 08/2016) Immunizations Up To Date Tetanus Booster (TDap): Less than 5yrs PED Vaccines UTD: No Date of Pneumonia Vaccine: Aug 28, 2016 Date of Influenza Vaccine: Aug 28, 2016 Seasonal Allergies Seasonal Allergies: No Surgeries HX Surgeries: Yes (CATARACTS, CARPAL TUNNEL, BILAT.THUMBS) Surgeries: Eye Surgery, Orthopedic, Tonsillectomy Respiratory Hx Respiratory Disorders: Yes (CPAP AT HS; ACUTE ON CHRONIC RESPIRATORY FAILURE ) Respiratory Disorders: Pneumonia, Sleep Apnea, COPD Cardiovascular Hx Cardiac Disorders: Yes Cardiac Disorders: Atrial Fibrillation, High Cholesterol, Hypertension Neurological Hx Neurological Disorders: Yes (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) Neurological Disorders: Neuropathy Reproductive System Hx Reproductive Disorders: No Sexually Transmitted Disease: No HIV/AIDS: No Genitourinary Hx Genitourinary Disorders: Yes Genitourinary Disorders: Benign Prostatic Hyperpl Gastrointestinal Hx Gastrointestinal Disorders: No Musculoskeletal Hx Musculoskeletal Disorders: No Endocrine Hx Endocrine Disorders: Yes Endocrine Disorders: Diabetes, Insulin dep HEENT HX ENT Disorders: Yes HEENT Disorders: Cataract, Macular Degeneration Hearing Impairment: Hard of Hearing Cancer Hx Cancer: Yes (BASAL CELL CARCINOMA) Cancer: Skin Psychosocial Hx Psychiatric Problems: No Integumentary HX Skin/Integumentary Disorder: Yes (CELLULITIS IN LEFT KNEE EARLY OCTOBER 2013) Skin/Integumentary Disorders: Recent Skin Changes Blood Transfusions Hx Blood Disorders: No Adverse Reaction to a Blood Tr: No Reviewed Nursing Assessment Reviewed/Agree w Nursing PMH: Yes Family Medical History Significant Family History: Cancer Family Medial History: COPD 19 FATHER Colon cancer 19 MOTHER Diabetes mellitus G8 SISTER Drug abuse G8 SISTER Lung cancer 19 FATHER Polio G8 BROTHER Sarcoidosis G8 BROTHER Physical Exam Vital Signs Vital Sign - Last 12Hours 12/26/16 11:50 Temp 97.9 Pulse 88 Resp 16 B/P (MAP) 93/62 Pulse Ox 99 Capillary Refill : General Appearance: No Apparent Distress, WD/WN HEENT: PERRL/EOMI, Pharynx Normal Neck: Non Tender, Supple Respiratory: Lungs Clear, Normal Breath Sounds Cardiovascular: No Murmur, Irregularly Irregular Gastrointestinal: Non Tender, Soft Back: Normal Inspection, No CVA Tenderness, No Vertebral Tenderness Extremity: Normal Range of Motion, Non Tender Neurologic/Psychiatric: Alert, Oriented x3 Skin: Normal Color, Warm/Dry Focused Exam Lactic Acid Level Laboratory Tests Test 12/26/16 12:05 Lactic Acid Level 1.42 MMOL/L (0.50-2.00) Date of ETT Placement: Oct 13, 2016 Time of ETT Placement: 2129 Progress/Results/Core Measures Results/Orders Lab Results Laboratory Tests Test 12/26/16 12:05 Range/Units White Blood Count 9.5 4.3-11.0 10^3/uL Red Blood Count 2.96 L 4.35-5.85 10^6/uL Hemoglobin 8.0 L 13.3-17.7 G/DL Hematocrit 25 L 40-54 % Mean Corpuscular Volume 83 80-99 FL Mean Corpuscular Hemoglobin 27 25-34 PG Mean Corpuscular Hemoglobin Concent 32 32-36 G/DL Red Cell Distribution Width 15.3 H 10.0-14.5 % Platelet Count 213 130-400 10^3/uL Mean Platelet Volume 10.4 7.4-10.4 FL Neutrophils (%) (Auto) 71 42-75 % Lymphocytes (%) (Auto) 13 12-44 % Monocytes (%) (Auto) 15 H 0-12 % Eosinophils (%) (Auto) 1 0-10 % Basophils (%) (Auto) 0 0-10 % Neutrophils # (Auto) 6.8 1.8-7.8 X 10^3 Lymphocytes # (Auto) 1.2 1.0-4.0 X 10^3 Monocytes # (Auto) 1.5 H 0.0-1.0 X 10^3 Eosinophils # (Auto) 0.1 0.0-0.3 10^3/uL Basophils # (Auto) 0.0 0.0-0.1 10^3/uL Prothrombin Time 21.6 H 12.2-14.7 SEC INR Comment 1.9 H 0.8-1.4 Activated Partial Thromboplast Time 51 H 24-35 SEC Urine Color YELLOW Urine Clarity SLIGHTLY CLOUDY Urine pH 5 5-9 Urine Specific [place] 1.020 1.016-1.022 Urine Protein 3+ H NEGATIVE Urine Glucose (UA) NEGATIVE NEGATIVE Urine Ketones NEGATIVE NEGATIVE Urine Nitrite NEGATIVE NEGATIVE Urine Bilirubin NEGATIVE NEGATIVE Urine Urobilinogen 1 NORMAL MG/DL Urine Leukocyte Esterase 3+ H NEGATIVE Urine RBC (Auto) 5+ H NEGATIVE Urine RBC 25-50 H /HPF Urine WBC 25-50 H /HPF Urine Squamous Epithelial Cells 0-2 /HPF Urine Crystals NONE /LPF Urine Bacteria MODERATE H /HPF Urine Casts PRESENT /LPF Urine Hyaline Casts 2-5 H /LPF Urine Granular Casts 0-2 H /LPF Urine Mucus SMALL H /LPF Urine Culture Indicated YES Sodium Level 131 L 135-145 MMOL/L Potassium Level 5.3 H 3.6-5.0 MMOL/L Chloride Level 101 98-107 MMOL/L Carbon Dioxide Level 26 21-32 MMOL/L Anion Gap 4 L 5-14 MMOL/L Blood Urea Nitrogen 31 H 7-18 MG/DL Creatinine 2.39 H 0.60-1.30 MG/DL Estimat Glomerular Filtration Rate 26 BUN/Creatinine Ratio 13 Glucose Level 172 H 70-105 MG/DL Lactic Acid Level 1.42 0.50-2.00 MMOL/L Calcium Level 9.0 8.5-10.1 MG/DL Magnesium Level 1.6 L 1.8-2.4 MG/DL Total Bilirubin 0.5 0.1-1.0 MG/DL Aspartate Amino Transf (AST/SGOT) 13 5-34 U/L Alanine Aminotransferase (ALT/SGPT) 9 0-55 U/L Alkaline Phosphatase 65 40-136 U/L C-Reactive Protein High Sensitivity 9.70 H 0.00-0.50 MG/DL Total Protein 6.9 6.4-8.2 G/DL Albumin 2.5 L 3.2-4.5 G/DL My Orders Orders - OKSANA MOODY MD Cbc With Automated Diff (12/26/16 12:12) Comprehensive Metabolic Panel (12/26/16 12:12) Hs C Reactive Protein (12/26/16 12:12) Magnesium (12/26/16 12:12) Protime With Inr (12/26/16 12:12) Partial Thromboplastin Time (12/26/16 12:12) Ua Culture If Indicated (12/26/16 12:12) Blood Culture (12/26/16 12:12) Saline Lock/Iv-Start (12/26/16 12:12) Ns Iv 500 Ml (Sodium Chloride 0.9%) (12/26/16 12:12) Ekg Tracing (12/26/16 12:12) Monitor-Rhythm Ecg Trace Only (12/26/16 12:12) Chest 1 View, Ap/Pa Only (12/26/16 12:12) Lactic Acid Analyzer (12/26/16 12:12) Urine Culture (12/26/16 12:05) Saline Lock/Iv-Start (12/26/16 13:53) Ns Iv 1000 Ml (Sodium Chloride 0.9%) (12/26/16 13:53) Cefepime Injection (Maxipime Injection) (12/26/16 14:00) Medications Given in ED Current Medications Medications Dose Ordered Sig/Nidhi Route Start Time Stop Time Status Last Admin Dose Admin Cefepime HCl 2000 mg/Sodium Chloride 50 ml @ 100 mls/hr ONCE ONCE IV 12/26/16 14:00 12/26/16 14:29 DC 12/26/16 14:16 100 MLS/HR Sodium Chloride 500 ml @ 0 mls/hr Q0M ONCE IV 12/26/16 12:12 12/26/16 12:14 DC 12/26/16 13:18 999 MLS/HR Sodium Chloride 1,000 ml @ 0 mls/hr Q0M ONCE IV 12/26/16 13:53 12/26/16 13:55 DC 12/26/16 14:16 1,000 MLS/HR Vital Signs/I&O Vital Sign - Last 12Hours 12/26/16 11:50 Temp 97.9 Pulse 88 Resp 16 B/P (MAP) 93/62 Pulse Ox 99 Progress Note : Progress Note Seen and evaluated. IV, labs and UA ordered. Chest x-ray and EKG ordered. Normal saline 500 mL bolus. Monitor patient. Patient was low on his blood pressure but in the low normal range. He had occasional below normal range but patient talks with his arms and each repeat blood pressure showed him to be in normal. I do believe that his blood pressure is low normal but not hypotensive. He does have findings of minimal right lower lobe pneumonia as well as probable UTI. Also finding acute on chronic renal failure. Patient appears to be hypovolemic which is likely related to decreased by mouth intake. I do believe that all findings are related to low volume and not septic shock. Patient does have some findings of sepsis with the infection and creatinine is elevated which could indicate severe sepsis but this appears to be more a response to poor fluid intake and less about severe sepsis. He was given 1.5 L total of normal saline for which she responded very well. We will initiate him on pneumonia protocol with 3 drug combination given his 2 month history of being in the hospital. I discussed all of this with Dr. Alexander who agrees. Patient will be admitted, inpatient status for pneumonia and UTI. At this time there is not findings of septic shock and he does not require high- volume fluid resuscitation. We will continue to monitor for changes and adjust as necessary. This also was discussed with Dr. Alexander who agrees. ECG Initial ECG Impression Date: Dec 26, 2016 Initial ECG Impression Time: 11:57 Initial ECG Rate: 81 Initial ECG Rhythm: A Fib/Flutter Initial ECG Impression: Atrial Fibrillation Comment Atrial fibrillation with normal axis. No evidence of ST elevation FL. Change from previous in which left bundle branch block is noted. Interpreted by me. Diagnostic Imaging Diagonstic Imaging: Xray Plain Films/CT/US/NM/MRI: chest [facility] [place], [place] NAME: ANIYAH MANZANARES REC#: [id number] PT STATUS: REG ER : 1935 PHYSICIAN: OKSANA MOODY MD ADMIT DATE: 12/26/16/ER Draft Date of Exam:12/26/16 CHEST 1 VIEW, AP/PA ONLY INDICATION: Hypertension. Comparison study: Chest from 10/22/2016. FINDINGS: Portable view of the chest demonstrates the heart size and vascularity to be normal. There is tortuosity of the aorta. Mild infiltrates are present in the right lung base. No pleural effusions are seen. IMPRESSION: There are infiltrates in the right lung base. Dictated on workstation # [id number] Dict: 12/26/16 1309 Trans: 12/26/16 1312 [id number] Interpreted by: MIAY HUNTLEY MD Electronically signed by: Departure Communication Time/Spoke to Admitting Phy: 13:58 Impression Impression: Primary Impression: Acute on chronic renal failure Additional Impressions: Dehydration Right lower lobe pneumonia Qualified Codes: J18.1 - Lobar pneumonia, unspecified organism Muscular deconditioning Urinary tract infection Qualified Codes: N30.00 - Acute cystitis without hematuria Disposition: ADMITTED INPATIENT Condition: Stable Decision to Admit Reason: Admit from ER (General) Decision to Admit/Date: Dec 26, 2016 Time/Decision to Admit Time: 13:58 Departure-Patient Inst. Referrals: ASCENCION CADENA MD (PCP/Family) Primary Care Physician OKSANA MOODY MD Dec 26, 2016 12:29
[2016-12-26 12:34] LABS: BILIRUBIN,URINE NEGATIVE (NEGATIVE); KETONES,URINE NEGATIVE (NEGATIVE); LEUKOCYTE ESTERASE ,URINE 3+ (NEGATIVE); NITRITE,URINE NEGATIVE (NEGATIVE); PH,URINE 5 (5-9); PROTEIN,URINE 3+ (NEGATIVE); UROBILINOGEN,URINE 1 MG/DL (NORMAL)
[2016-12-26 12:35] LABS: INR 1.9 (0.8-1.4); PROTHROMBIN TIME PATIENT 21.6 SEC (12.2-14.7)
[2016-12-26 12:45] LABS: ALBUMIN 2.5 G/DL (3.2-4.5); BILIRUBIN,TOTAL 0.5 MG/DL (0.1-1.0); CREATININE SERUM 2.39 MG/DL (0.60-1.30); MAGNESIUM 1.6 MG/DL (1.8-2.4); POTASSIUM 5.3 MMOL/L (3.6-5.0); TOTAL PROTEIN 6.9 G/DL (6.4-8.2); hs C REACTIVE PROTEIN 9.7 MG/DL (0.00-0.50)
[2016-12-26 12:59] LABS: WBC,URINE 25-50 /HPF
[2016-12-26 13:00] LABS: GRANULAR CASTS,URINE 0-2 /LPF; SQUAMOUS EPITHELIAL CELL,UR 0-2 /HPF
--- NOTE | 2016-12-26 13:12 | Diagnostic Imaging Report ---
INDICATION: Hypertension. Comparison study: Chest from 10/22/2016. FINDINGS: Portable view of the chest demonstrates the heart size and vascularity to be normal. There is tortuosity of the aorta. Mild infiltrates are present in the right lung base. No pleural effusions are seen. IMPRESSION: There are infiltrates in the right lung base. Dictated by: Dictated on workstation # [id number]
[2016-12-26] MEDS ORDERED: NS IV 1000 ML 1,000 ML IV ONE (13:53)
[2016-12-26] MEDS ORDERED: CEFEPIME INJECTION 2,000 MG in NS (IVPB) 50 ML IV ONE (14:00)
[2016-12-26 15:20] VITALS: BP 121/56
[2016-12-26] MEDS ORDERED: VANCOMYCIN 1500 MG/NS 500 ML IVPB IV NR ×2 (15:45)
[2016-12-26] MEDS ORDERED: ONDANSETRON 4 MG/2 ML (SDV) Z0FRAN IV PRN (16:00)
[2016-12-26] MEDS ORDERED: CATHETER FLUSH 10 ML SYR IV PRN (16:00)
[2016-12-26] MEDS: inSUlin (REGULAR) HUMAN 1 UNIT/0.01 ML (CHARGE PER UNIT) SC SCH ×2 (16:00→20:00)
[2016-12-26] MEDS: NS IV 1000 ML 1,000 ML IV SCH (16:08)
[2016-12-26] MEDS ORDERED: FAMO-119 PO (16:36)
[2016-12-26] MEDS ORDERED: ALBU2.5V4 IH (16:36)
[2016-12-26] MEDS ORDERED: LOSA25TA2 PO (16:36)
[2016-12-26] MEDS ORDERED: INSU100V SQ (16:36)
[2016-12-26] MEDS ORDERED: CARV12.53 PO (16:36)
[2016-12-26] MEDS ORDERED: TAMS0.4C98 PO (16:36)
[2016-12-26] MEDS ORDERED: WARF2.5T PO (16:36)
[2016-12-26] MEDS ORDERED: TRIM100T PO (16:36)
[2016-12-26] MEDS ORDERED: MELA1TAB10 PO (16:36)
[2016-12-26] MEDS ORDERED: GUAI-366 PO (16:36)
[2016-12-26] MEDS ORDERED: WARF-48 PO (16:36)
[2016-12-26] MEDS ORDERED: HYDR-3816 PO (16:36)
[2016-12-26] MEDS ORDERED: ASCO-262 PO (16:36)
[2016-12-26] MEDS ORDERED: NEOM14.217 TP (16:36)
[2016-12-26] MEDS ORDERED: CRAN500C3 PO (16:36)
[2016-12-26] MEDS ORDERED: DIGO125T6 PO (16:36)
[2016-12-26] MEDS ORDERED: POTA-51 PO (16:36)
[2016-12-26] MEDS ORDERED: FURO20TA4 PO (16:36)
[2016-12-26] MEDS ORDERED: DIPH25CA6 PO (16:36)
[2016-12-26] MEDS ORDERED: ONDA4TAB10 PO (16:36)
[2016-12-26] MEDS ORDERED: POLY119P5 PO (16:36)
[2016-12-26] MEDS: LEVOFLOXACIN 750 MG/D5W 150 ML (PRE-MIX) IV SCH (16:58)
--- NOTE | 2016-12-26 17:50 | History & Physical ---
History of Present Illness History of Present Illness Reason for visit/HPI 81-year-old male with a history of sleep apnea, hypertension, diabetes, coronary artery disease, COPD, chronic kidney disease stage III, congestive heart failure and atrial fibrillation. 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 He was sent to the ED for further evaluation. Patient's blood pressure in the emergency department was 90s over 70s. He did have some normotensive blood pressures. Likely etiology for his hypotension is low volume status due to poor by mouth intake. Does not appear he is in septic shock. Patient's current baseline is weak and deconditioned due to previous admissions in October 2016 for sepsis due to pneumonia as well as VRE urinary tract infection and candidemia. He was previously at [facility] for these. He had recently been admitted to [facility] a couple weeks ago. His blood pressure seems to be responding to IV fluids. He was placed on vancomycin and Levaquin and cefepime for healthcare related pneumonia. Appears the pneumonia is in the right lower lobe. Patient's urine also appears to be infected but he does have an indwelling catheter and just finished Augmentin for urinary tract infection. patient is currently being fluid hydrated via IV. Of note on admission his hemoglobin was 8.0 and his INR was 1.9. Patient is on Coumadin for atrial fibrillation. We'll recheck his hemoglobin in the a.m. if continues to decline will need a blood transfusion. Furthermore patient's blood pressure does not continue respond IV fluids and antibiotics will have to do the 30 mL per kilogram bolus and transferred to ICU as it may appear he is moving toward septic shock. Currently though patient looks good and doesn't appear to be in any discomfort. Patient has not had any fevers. Lactic acid was not elevated. Patient admitted for further evaluation and treatment. Date of Admission Dec 26, 2016 at 14:50 I consulted on this patient on 12/26/16 17:41 Attending Physician Hugo Alexander MD Admitting Physician Hugo Alexander MD Consult Allergies and Home Medications Allergies Coded Allergies: sulfamethoxazole (Verified Allergy, Mild, RASH, 12/26/16) trimethoprim (Verified Allergy, Mild, RASH, 12/26/16) Home Medications Albuterol Sulfate 2.5 Mg/3 Ml Vial.neb, 2.5 MG IH Q4H PRN for SHORTNESS OF BREATH, (Reported) Ascorbate Calcium 500 Mg Tablet, 500 MG PO DAILY, (Reported) Carvedilol 12.5 Mg Tablet, 12.5 MG PO BID, (Reported) Cranberry 500 Mg Capsule, 500 MG PO BID, (Reported) Digoxin 125 Mcg Tablet, 125 MCG PO DAILY, (Reported) Diphenhydramine HCl 25 Mg Capsule, 25 MG PO DAILY, (Reported) Famotidine 20 Mg Tablet, 20 MG PO BID, (Reported) Furosemide 20 Mg Tablet, 40 MG PO BID, (Reported) TAKES 2 (20 MG) TABLETS Gabapentin 300 Mg Capsule, 300 MG PO BID, (Reported) Guaifenesin/Dextromethorphan 1 Each Tab.er.12h, 1 TAB PO BID, (Reported) Hydrocodone/Acetaminophen 1 Each Tablet, 1 TAB PO Q6H PRN for PAIN, (Reported) Insulin Lispro 100 Unit/1 Ml Vial, SQ SLIDING/SCALE, (Reported) 141-180 1 UNIT 181-220 2 UNITS [phone] 3 UNITS 281-340 5 UNITS 341- 400 8 UNITS Ipratropium/Albuterol Sulfate 3 Ml Ampul.neb, 3 ML NEB Q4H PRN for SHORTNESS OF BREATH, (Reported) Losartan Potassium 25 Mg Tablet, 25 MG PO DAILY, (Reported) Melatonin/Pyridoxine 1 Each Tablet, 6 MG PO HS, (Reported) TAKES 2 (3 MG) TABLETS Neomycin Teixeira/Bacitrac Zn/Poly 14.2 Gm Oint...g., TP TID, (Reported) APPLIES TO TIP OF PENIS Ondansetron HCl 4 Mg Tablet, 4 MG PO Q6H PRN for NAUSEA/VOMITING, (Reported) Polyethylene Glycol 3350 119 Gm Powder, 17 GM PO DAILY, (Reported) Potassium Chloride 20 Meq Tablet.er, 40 MEQ PO BID, (Reported) TAKES 2 (20 MEQ) TABLETS Tamsulosin HCl 0.4 Mg Cap, 0.8 MG PO DAILY@1800, (Reported) TAKES 2 (0.4 MG) CAPSULES Trimethoprim 100 Mg Tablet, 100 MG PO HS, (Reported) Warfarin Sodium 2.5 Mg Tablet, 2.5 MG PO SuTuThSa, (Reported) Warfarin Sodium 5 Mg Tablet, 5 MG PO MoWeFr, (Reported) Past Dxqwblv-Wzalub-Kuejxv Hx Patient Social History Marrital Status: Alcohol Use: Denies Use Recreational Drug Use: No Smoking Status: Former Smoker Former smoker/When Quit: Apr 24, 2005 Type Used: Cigarettes Physical Abuse Screen: No Sexual Abuse: No Recent Foreign Travel: No Contact w/other who traveled: No Recent Hopitalizations: Yes (SEP 2016 PER ) Recent Infectious Disease Expo: No Immunizations Up To Date Tetanus Booster (TDap): Less than 5yrs Date of Pneumonia Vaccine: Aug 28, 2016 Date of Influenza Vaccine: Aug 28, 2016 Seasonal Allergies Seasonal Allergies: No Surgeries HX Surgeries: Yes (CATARACTS, CARPAL TUNNEL, BILAT.THUMBS) Surgeries: Eye Surgery, Orthopedic, Tonsillectomy Respiratory Hx Respiratory Disorders: Yes (CPAP AT HS; ACUTE ON CHRONIC RESPIRATORY FAILURE ) Cardiovascular Hx Cardiovascular Disorders: Yes Cardiac Disorders: Atrial Fibrillation, High Cholesterol, Hypertension Neurological Hx Neurological Disorders: Yes (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) Neurological Disorders: Neuropathy Reproductive System Hx Reproductive Disorders: No Sexually Transmitted Disease: No HIV/AIDS: No Genitourinary Hx Genitourinary Disorders: Yes Genitourinary Disorders: Benign Prostatic Hyperpl, Renal Failure, UTI-Chronic Gastrointestinal Hx Gastrointestinal Disorders: No Gastrointestinal Disorders: Gastroesophageal Reflux, Chronic Constipation Musculoskeletal Hx Musculoskeletal Disorders: No Endocrine Hx Endocrine Disorders: Yes Endocrine Disorders: Diabetes, Insulin dep HEENT HX ENT Disorders: Yes HEENT Disorders: Cataract, Macular Degeneration Hearing Impairment: Hard of Hearing Cancer Hx Cancer: Yes (BASAL CELL CARCINOMA) Cancer: Skin Psychosocial Hx Psychiatric Problems: No Behavioral Health Disorders: Sleep Difficulties Integumentary HX Skin/Integumentary Disorder: Yes (CELLULITIS IN LEFT KNEE EARLY OCTOBER 2013) Skin/Integumentary Disorders: Recent Skin Changes Blood Transfusions Hx Blood Disorders: No Adverse Reaction to a Blood Tr: No Reviewed Nursing Assessment Reviewed/Agree w Nursing PMH: Yes Family Medical History Significant Family History: Cancer Family Hx: COPD 19 FATHER Colon cancer 19 MOTHER Diabetes mellitus G8 SISTER Drug abuse G8 SISTER Lung cancer 19 FATHER Polio G8 BROTHER Sarcoidosis G8 BROTHER Review of Systems Review of Systems General: No Chills, No Night Sweats HEENT: No Head Aches, No Visual Changes Pulmonary: No Dyspnea, Cough Cardiovascular: No: Chest Pain, Orthopnea, Palpitations Gastrointestinal: No: Abdominal Pain, Nausea, Vomiting Genitourinary: No Dysuria, No Frequency Musculoskeletal: No: neck pain, shoulder pain Neurological: Weakness All Other Systems Reviewed All Other Systems Reviewed: Yes Physical Exam Vital Signs Vital Sign - Last 12Hours 12/26/16 12/26/16 11:50 15:20 Temp 97.9 Pulse 88 Resp 16 B/P (MAP) 93/62 Pulse Ox 99 O2 Delivery Nasal Cannula O2 Flow Rate 2.00 Capillary Refill : Less Than 3 Seconds General Appearance: No Apparent Distress, WD/WN Eyes: Bilateral Eye PERRL HEENT: PERRL/EOMI Neck: Full Range of Motion, Normal Inspection, Non Tender, Supple Respiratory: Chest Non Tender, No Accessory Muscle Use, No Respiratory Distress , Decreased Breath Sounds (right lower lung field), Wheezing (occassional) Cardiovascular: Other (irregular rythm, regular rate) Gastrointestinal: Normal Bowel Sounds, Non Tender, Soft Rectal: Deferred Back: No CVA Tenderness, No Vertebral Tenderness Extremity: Non Tender, No Calf Tenderness, Pedal Edema (trace), Other (venous stasis legs- right calf wrapped) Neurologic/Psychiatric: Alert, Oriented x3 Skin: Warm/Dry Assessment/Plan Assessment/Plan Assessment/Plan 81 yo M admitted 12/26/16 hypotension- normtensive with IVF, monitor acute renal failure on chronic kidney disease stage III - likely due to hypotension- Cr may plateau tomorrow then expect it to improve with IVF- jani monitor lytes- No iv contrast, nsaids- avoid nephrotoxic agents. Sepsis due to respiratory source- ivf, abx RLL pneumonia- blood cultures- continue levofloxacin, cefepime, vanc- will try to get rid of vanc soon. on 2L NC congestive heart failure- monitor status for overload. atrial fibrillation- INR 1.9- continue coumadin- will recheck INR- continue digoxin CHADSVASC 4 hypertension- not an issue currently holding BP meds diabetes mellitus ii- sliding scale insulin coronary artery disease- stable COPD- may go up to 4L NC while sleeping- MAT protocol, CPAP sleep apnea- CPAP venous stasis- leg wounds- consult wound care in AM dvt ppx- heparin (until INR 2), scds Dispo: continue ivf, abx- reassess clinical condition as pt can decompensate quick- Would like to d/c vancomycin tomorrow. Problems: HUGO ALEXANDER MD Dec 26, 2016 17:50
[2016-12-26] MEDS ORDERED: warFARin 2.5 MG (COUMADIN) TAB PO SCH (18:15)
[2016-12-26] MEDS ORDERED: warFARin 5 MG (COUMADIN) TAB PO NR (18:30)
[2016-12-26] MEDS: NYSTATIN CREAM (MYCOSTATIN) 30 GM TUBE TP SCH (20:37)
[2016-12-26] MEDS: FAMOTIDINE 20 MG (PEPCID) TABLET PO SCH (20:37)
[2016-12-26] MEDS: GABAPENTIN 300 MG (NEURONTIN) CAP PO SCH (20:37)
[2016-12-26 20:50] VITALS: BP 123/64
[2016-12-26] MEDS ORDERED: NON-FORMULARY MEDICATION 1 EA EA (Trimethoprim 100 MG) PO SCH (21:00)
[2016-12-27] VITALS (12 sets, daily range): BP systolic 118–160; BP diastolic 59–92
[2016-12-27 04:40] LABS: BASOPHILS % (AUTO) 0 % (0-10); EOSINOPHILS # (AUTO) 0.1 10^3/uL (0.0-0.3); EOSINOPHILS % (AUTO) 1 % (0-10); LYMPHOCYTES # (AUTO) 1.1 X 10^3 (1.0-4.0); LYMPHOCYTES % (AUTO) 17 % (12-44); MEAN CORPUSCULAR HEMOGLOBIN 26 PG (25-34); MEAN CORPUSCULAR HGB CONC 32 G/DL (32-36); MEAN CORPUSCULAR VOLUME 84 FL (80-99); MEAN PLATELET VOLUME 10.5 FL (7.4-10.4); MONOCYTES % (AUTO) 15 % (0-12); NEUTROPHILS # (AUTO) 4.3 X 10^3 (1.8-7.8); NEUTROPHILS % (AUTO) 66 % (42-75); PLATELET COUNT 191 10^3/uL (130-400); RED BLOOD COUNT 2.73 10^6/uL (4.35-5.85); RED CELL DISTRIBUTION WIDTH 15.2 % (10.0-14.5); WHITE BLOOD COUNT 6.5 10^3/uL (4.3-11.0)
[2016-12-27 04:59] LABS: INR 2.3 (0.8-1.4); PROTHROMBIN TIME PATIENT 25.5 SEC (12.2-14.7)
[2016-12-27 05:16] LABS: POTASSIUM 4.7 MMOL/L (3.6-5.0)
[2016-12-27 05:17] LABS: ALBUMIN 2.1 G/DL (3.2-4.5); BILIRUBIN,TOTAL 0.4 MG/DL (0.1-1.0); CALCIUM 8.5 MG/DL (8.5-10.1); CREATININE SERUM 1.65 MG/DL (0.60-1.30)
[2016-12-27] MEDS: inSUlin (REGULAR) HUMAN 1 UNIT/0.01 ML (CHARGE PER UNIT) SC SCH ×4 (05:42→21:05)
--- NOTE | 2016-12-27 08:50 | Progress Note (SOAP) ---
Subjective Subjective 81 yo M - no overnight events- Pt did not get his CPAP. Nursing staff to ask to bring his from home (if he has one at home, pt says he does but he is currently living at [facility]). Review of Systems General: No Chills, No Night Sweats HEENT: No Head Aches, No Visual Changes Pulmonary: No Dyspnea, Cough Cardiovascular: No: Chest Pain, Orthopnea, Palpitations Gastrointestinal: No: Abdominal Pain, Nausea, Vomiting Genitourinary: No Dysuria, No Frequency Musculoskeletal: No: neck pain, shoulder pain Neurological: Weakness All Other Systems Reviewed All Other Systems Reviewed: Yes Objective Exam Vital Signs Vital Signs Date Time Temp Pulse Resp B/P (MAP) Pulse Ox O2 Delivery O2 Flow Rate FiO2 12/27/16 07:07 2.00 12/27/16 04:00 98.5 84 20 131/68 94 Nasal Cannula 2.00 12/27/16 00:00 97.5 82 20 139/63 95 Nasal Cannula 2.00 12/26/16 21:00 92 Nasal Cannula 2.00 12/26/16 20:50 98.2 83 22 123/64 93 Nasal Cannula 2.00 12/26/16 15:20 97.4 68 18 121/56 92 Nasal Cannula 2.00 12/26/16 15:20 Nasal Cannula 2.00 12/26/16 15:09 97.9 87 16 97 12/26/16 11:50 97.9 88 16 93/62 99 I & O 12/27/16 07:00 Intake Total 2615 ml Output Total 1675 ml Balance 940 ml General Appearance: No Apparent Distress, WD/WN Eyes: Bilateral Eye PERRL HEENT: PERRL/EOMI Neck: Full Range of Motion, Normal Inspection, Non Tender, Supple Respiratory: Chest Non Tender, No Accessory Muscle Use, No Respiratory Distress , Decreased Breath Sounds (right lower lung field), Wheezing (occassional) Cardiovascular: Other (irregular rythm, regular rate) Gastrointestinal: Normal Bowel Sounds, Non Tender, Soft Rectal: Deferred Back: No CVA Tenderness, No Vertebral Tenderness Extremity: Non Tender, No Calf Tenderness, Pedal Edema (trace), Other (venous stasis legs- right calf wrapped) Neurologic/Psychiatric: Alert, Oriented x3 Skin: Warm/Dry Results Lab Laboratory Tests 12/26/16 12:05: White Blood Count 9.5, Red Blood Count 2.96L, Hemoglobin 8.0L, Hematocrit 25L, Mean Corpuscular Volume 83, Mean Corpuscular Hemoglobin 27, Mean Corpuscular Hemoglobin Concent 32, Red Cell Distribution Width 15.3H, Platelet Count 213, Mean Platelet Volume 10.4, Neutrophils (%) (Auto) 71, Lymphocytes (%) (Auto) 13 , Monocytes (%) (Auto) 15H, Eosinophils (%) (Auto) 1, Basophils (%) (Auto) 0, Neutrophils # (Auto) 6.8, Lymphocytes # (Auto) 1.2, Monocytes # (Auto) 1.5H, Eosinophils # (Auto) 0.1, Basophils # (Auto) 0.0, Prothrombin Time 21.6H, INR Comment 1.9H, Activated Partial Thromboplast Time 51H, Urine Color YELLOW, Urine Clarity SLIGHTLY CLOUDY, Urine pH 5, Urine Specific [place] 1.020, Urine Protein 3+H, Urine Glucose (UA) NEGATIVE, Urine Ketones NEGATIVE, Urine Nitrite NEGATIVE, Urine Bilirubin NEGATIVE, Urine Urobilinogen 1, Urine Leukocyte Esterase 3+H, Urine RBC (Auto) 5+H, Urine RBC 25-50H, Urine WBC 25-50H, Urine Squamous Epithelial Cells 0-2, Urine Crystals NONE, Urine Bacteria MODERATEH, Urine Casts PRESENT, Urine Hyaline Casts 2-5H, Urine Granular Casts 0-2H, Urine Mucus SMALLH, Urine Culture Indicated YES, Sodium Level 131L, Potassium Level 5.3H, Chloride Level 101, Carbon Dioxide Level 26, Anion Gap 4L, Blood Urea Nitrogen 31H, Creatinine 2.39H, Estimat Glomerular Filtration Rate 26, BUN/ Creatinine Ratio 13, Glucose Level 172H, Lactic Acid Level 1.42, Calcium Level 9.0, Magnesium Level 1.6L, Total Bilirubin 0.5, Aspartate Amino Transf (AST/SGOT ) 13, Alanine Aminotransferase (ALT/SGPT) 9, Alkaline Phosphatase 65, C- Reactive Protein High Sensitivity 9.70H, Total Protein 6.9, Albumin 2.5L 12/26/16 20:59: Glucometer 140H 12/27/16 04:15: White Blood Count 6.5, Red Blood Count 2.73L, Hemoglobin 7.2L, Hematocrit 23L, Mean Corpuscular Volume 84, Mean Corpuscular Hemoglobin 26, Mean Corpuscular Hemoglobin Concent 32, Red Cell Distribution Width 15.2H, Platelet Count 191, Mean Platelet Volume 10.5H, Neutrophils (%) (Auto) 66, Lymphocytes (%) (Auto) 17 , Monocytes (%) (Auto) 15H, Eosinophils (%) (Auto) 1, Basophils (%) (Auto) 0, Neutrophils # (Auto) 4.3, Lymphocytes # (Auto) 1.1, Monocytes # (Auto) 1.0, Eosinophils # (Auto) 0.1, Basophils # (Auto) 0.0, Prothrombin Time 25.5H, INR Comment 2.3H, Sodium Level 134L, Potassium Level 4.7, Chloride Level 107, Carbon Dioxide Level 21, Anion Gap 6, Blood Urea Nitrogen 24H, Creatinine 1.65H , Estimat Glomerular Filtration Rate 40, BUN/Creatinine Ratio 15, Glucose Level 100, Calcium Level 8.5, Total Bilirubin 0.4, Aspartate Amino Transf (AST/SGOT) 14, Alanine Aminotransferase (ALT/SGPT) 9, Alkaline Phosphatase 52, Total Protein 6.0L, Albumin 2.1L 12/27/16 06:27: Glucometer 112H Assessment/Plan Assessment/Plan Assessment/Plan 81 yo M admitted 12/26/16 hypotension- improved- normtensive with IVF, monitor acute renal failure on chronic kidney disease stage III - likely due to hypotension and dehydration- Cr improving- currently at near his baseline Cr. No iv contrast, nsaids- avoid nephrotoxic agents. Sepsis due to respiratory source- ivf, abx RLL pneumonia- blood cultures- continue levofloxacin, cefepime on 2L NC congestive heart failure- monitor status for overload. IVF KVO atrial fibrillation- monitoring INR continue coumadin- will recheck INR- continue digoxin CHADSVASC 4 hypertension- not an issue currently holding BP meds diabetes mellitus ii- sliding scale insulin coronary artery disease- stable, Dr. Niño cardiology- (Dr. Meneses covering this weekend) COPD- may go up to 4L NC while sleeping- MAT protocol sleep apnea- CPAP venous stasis- leg wounds- consult wound care Anemia (multifactorial) due to CKD, anemia of chronic disease - 8->7.2 symptomatic- will transfuse today. hypomagnesemia- replacing dvt ppx- scds , on coumadin Dispo: continue ivf, abx- reassess clinical condition as pt can decompensate quick- transfusing today, d/c'd vancomycin, d/c'd heparin as INR is >2. Likely d/c back to [facility] on Friday12/30/16 Problems: Clinical Quality Measures DVT/VTE Risk/Contraindication: Risk Factor Score Per Nursin RFS Level Per Nursing on Admit: 4+=Very High RUBEN SANCHEZ MD Dec 27, 2016 08:50
[2016-12-27] MEDS ORDERED: NS IV 500 ML 500 ML IV SCH (08:54)
[2016-12-27] MEDS ORDERED: MAGNESIUM 1 GM/100 ML IVPB 100 ML IV NR (08:56)
[2016-12-27] MEDS: NYSTATIN CREAM (MYCOSTATIN) 30 GM TUBE TP SCH ×3 (09:51→21:05)
[2016-12-27] MEDS: DIGOXIN 0.125 MG (LANOXIN) TAB PO SCH (09:52)
[2016-12-27] MEDS: GABAPENTIN 300 MG (NEURONTIN) CAP PO SCH ×2 (09:52→21:05)
[2016-12-27] MEDS: MAGNESIUM OXIDE (MAG-OX)400 MG TAB PO SCH ×2 (10:01→17:07)
[2016-12-27] MEDS ORDERED: TROUGH ORDER-PHARMACY XX NR (15:00)
[2016-12-27] MEDS: CEFEPIME 2 GM/NS 50 ML IVPB IV SCH ×2 (15:46)
[2016-12-27] MEDS ORDERED: VANCOMYCIN 1 GM/NS 250 ML IVPB IV SCH ×2 (16:00)
[2016-12-27] MEDS: ALFUZOSIN HCL 10 MG TAB (UROXATRAL) PO SCH (17:05)
[2016-12-27] MEDS ORDERED: warFARin 5 MG (COUMADIN) TAB PO SCH (18:00)
[2016-12-27] MEDS ORDERED: TAMSULOSIN 0.4 MG (FLOMAX) CAP PO SCH (18:00)
[2016-12-27] MEDS ORDERED: MUPIROCIN 2% OINT 22 GM (BACTROBAN) TUBE TOP SCH (18:45)
--- NOTE | 2016-12-27 18:45 | Wound Care Progress Note ---
Subjective Subjective Subjective/Events-last exam 81 year old male with diabetic ulcers of R castro, R heel, and L lateral foot. The patient has severe congestive heart failure, and because of orthopnea is little able to elevate his legs significantly. He therefore has chronic ulcerations of the legs, and weeping from multiple areas of severe edema of the bilateral lower extremities. Past medical history is remarkable for congestive heart failure atrial fibrillation hypertension sleep apnea diabetes coronary artery disease COPD and chronic kidney disease. Social history: Patient is denies alcohol and is a former smoker. Family history: This is positive for diabetes COPD, lung cancer, colon cancer, sarcoidosis. Review of Systems General: Fatigue Pulmonary: Dyspnea Cardiovascular: Edema, Orthopnea Gastrointestinal: Nausea Objective Exam Last Set of Vital Signs Vital Signs Date Time Temp Pulse Resp B/P (MAP) Pulse Ox O2 Delivery O2 Flow Rate FiO2 12/27/16 17:16 97.8 88 20 160/74 97 2.00 12/27/16 16:02 Nasal Cannula Capillary Refill : Less Than 3 Seconds I&O Bad tableGeneral: Cooperative, Mild Distress HEENT: Atraumatic Neck: Supple Lungs: Normal Air Movement Extremities: Other (massive bilateral lower extremity edema with weeping areas. ) Skin: Other (right castro wound2.7-1.6 x 0.4 cm, base is a dusky slough with moderate serosanguineous drainage. Right heel wound2.6 x 2.0 x 0.2 cm, purple blister with intact surrounding skin. Left lateral foot3.1 x 2.7 x 0.5 cm, base is necrotic slough, periwound is inflamed.) Results Lab Laboratory Tests 12/26/16 20:59: Glucometer 140H 12/27/16 04:15: White Blood Count 6.5, Red Blood Count 2.73L, Hemoglobin 7.2L, Hematocrit 23L, Mean Corpuscular Volume 84, Mean Corpuscular Hemoglobin 26, Mean Corpuscular Hemoglobin Concent 32, Red Cell Distribution Width 15.2H, Platelet Count 191, Mean Platelet Volume 10.5H, Neutrophils (%) (Auto) 66, Lymphocytes (%) (Auto) 17 , Monocytes (%) (Auto) 15H, Eosinophils (%) (Auto) 1, Basophils (%) (Auto) 0, Neutrophils # (Auto) 4.3, Lymphocytes # (Auto) 1.1, Monocytes # (Auto) 1.0, Eosinophils # (Auto) 0.1, Basophils # (Auto) 0.0, Prothrombin Time 25.5H, INR Comment 2.3H, Sodium Level 134L, Potassium Level 4.7, Chloride Level 107, Carbon Dioxide Level 21, Anion Gap 6, Blood Urea Nitrogen 24H, Creatinine 1.65H , Estimat Glomerular Filtration Rate 40, BUN/Creatinine Ratio 15, Glucose Level 100, Calcium Level 8.5, Total Bilirubin 0.4, Aspartate Amino Transf (AST/SGOT) 14, Alanine Aminotransferase (ALT/SGPT) 9, Alkaline Phosphatase 52, Total Protein 6.0L, Albumin 2.1L 12/27/16 06:27: Glucometer 112H 12/27/16 10:05: Glucometer 168H 12/27/16 16:54: Glucometer 165H Microbiology 12/26/16 Blood Culture - Preliminary, Resulted No growth 12/26/16 Urine Culture - Final, Complete Assessment/Plan Assessment/Plan Assessment/Plan 1. Diabetic ulcer of the left lateral foot, grade 2 with cellulitis. 2. Right heel ulcer, diabetic, grade 1 3. Diabetic ulcer of right castro, grade 2 4. Multiple significant comorbidities including cardiac and respiratory failure , uncompensated congestive heart failure with significant lymphedema. Plan: Stabilizing dressings have been ordered for the patient, but the prognosis for these wounds is very poor, considering the underlying significant comorbidities. JONATHAN CROUCH MD Dec 27, 2016 18:45
[2016-12-27] MEDS ORDERED: PATIENT MAY USE OWN MED,SINGLE MED PO SCH (19:45)
[2016-12-27] MEDS: NS IV 1000 ML 1,000 ML IV SCH (20:22)
[2016-12-27] MEDS: FAMOTIDINE 20 MG (PEPCID) TABLET PO SCH (21:05)
[2016-12-27] MEDS: TRIMETHOPRIM 100 MG TAB (PROLOPRIM) NON-FORMULARY PO SCH (21:05)
[2016-12-28] VITALS: BP 141/61
[2016-12-28 04:00] VITALS: BP 144/67
[2016-12-28] MEDS: inSUlin (REGULAR) HUMAN 1 UNIT/0.01 ML (CHARGE PER UNIT) SC SCH ×4 (06:00→21:26)
[2016-12-28 06:22] LABS: INR 2.5 (0.8-1.4)
[2016-12-28 07:00] LABS: BASOPHILS % (AUTO) 0 % (0-10); EOSINOPHILS # (AUTO) 0.1 10^3/uL (0.0-0.3); EOSINOPHILS % (AUTO) 1 % (0-10); LYMPHOCYTES % (AUTO) 16 % (12-44); MEAN CORPUSCULAR HEMOGLOBIN 27 PG (25-34); MEAN CORPUSCULAR HGB CONC 33 G/DL (32-36); MEAN CORPUSCULAR VOLUME 83 FL (80-99); MEAN PLATELET VOLUME 10.5 FL (7.4-10.4); MONOCYTES % (AUTO) 18 % (0-12); NEUTROPHILS # (AUTO) 3.8 X 10^3 (1.8-7.8); NEUTROPHILS % (AUTO) 65 % (42-75); PLATELET COUNT 198 10^3/uL (130-400); RED BLOOD COUNT 3.47 10^6/uL (4.35-5.85); RED CELL DISTRIBUTION WIDTH 14.9 % (10.0-14.5); WHITE BLOOD COUNT 5.9 10^3/uL (4.3-11.0)
[2016-12-28 07:19] LABS: ALBUMIN 2.3 G/DL (3.2-4.5); ANION GAP 6 MMOL/L (5-14); BLOOD UREA NITROGEN 15 MG/DL (7-18); BUN/CREATININE RATIO 13; CALCIUM 8.8 MG/DL (8.5-10.1); CARBON DIOXIDE 23 MMOL/L (21-32); CHLORIDE 106 MMOL/L (98-107); CREATININE SERUM 1.12 MG/DL (0.60-1.30); GFR ESTIMATED > 60; GLUCOSE 130 MG/DL (70-105); MAGNESIUM 1.9 MG/DL (1.8-2.4); PHOSPHORUS 2.3 MG/DL (2.3-4.7); POTASSIUM 3.9 MMOL/L (3.6-5.0); SODIUM 135 MMOL/L (135-145)
[2016-12-28 08:35] VITALS: BP 149/73
--- NOTE | 2016-12-28 09:21 | Progress Note (SOAP) ---
Subjective Subjective/Events-last exam PT REPORTS THAT HE IS FEELING BETTER TODAY - HE STATES THAT HE IS NOT SHORT OF BREATH BECAUSE HE HAS OXYGEN ON AND IT HELPS HIS BREATHING. NOT PRESENT THIS MORNING. Review of Systems General: Fatigue HEENT: No Head Aches Pulmonary: Dyspnea, No Cough Cardiovascular: No: Chest Pain Gastrointestinal: No: Abdominal Pain, Nausea Neurological: Confusion (INTERMITTENT), Weakness Objective Exam Vital Signs Date Time Temp Pulse Resp B/P (MAP) Pulse Ox O2 Delivery O2 Flow Rate FiO2 12/28/16 08:35 97.4 92 22 149/73 93 Room Air 12/28/16 08:26 2.00 12/28/16 08:00 Nasal Cannula 2.00 12/28/16 04:00 96.8 74 20 144/67 95 Nasal Cannula 2.00 12/28/16 01:00 70 12/28/16 00:00 98.0 80 22 141/61 94 Nasal Cannula 2.00 12/27/16 21:00 Nasal Cannula 2.00 12/27/16 20:23 97.8 77 18 138/76 94 2.00 12/27/16 20:00 97.3 75 20 149/67 95 Nasal Cannula 2.00 12/27/16 19:00 67 12/27/16 17:16 97.8 88 20 160/74 97 2.00 12/27/16 17:01 97.8 83 20 153/70 96 2.00 12/27/16 16:02 98.0 80 22 121/59 96 Nasal Cannula 2.00 12/27/16 15:34 66 12/27/16 15:00 97.7 83 18 131/63 83 12/27/16 12:24 97.6 74 20 131/92 97 2.00 12/27/16 12:00 96.9 77 20 118/60 99 Nasal Cannula 2.00 12/27/16 11:50 96.9 77 20 118/60 97 2.00 I & O 12/28/16 07:00 Intake Total 1350 ml Output Total 2130 ml Balance -780 ml Capillary Refill : Less Than 3 Seconds General Appearance: No Apparent Distress, WD/WN HEENT: PERRL/EOMI Neck: Supple Respiratory: Chest Non Tender, Crackles (FAINT AT BASES) Cardiovascular: Irregularly Irregular Gastrointestinal: normal bowel sounds, non tender, soft, no organomegaly, no pulsatile mass Extremity: Normal Inspection, Normal Range of Motion, No Calf Tenderness, No Pedal Edema Neurologic/Psychiatric: Alert, Normal Mood/Affect, Other (ORIENTED TO PERSON/ PLACE) Skin: Warm/Dry Results Lab Laboratory Tests 12/27/16 10:05: Glucometer 168H 12/27/16 16:54: Glucometer 165H 12/27/16 21:04: Glucometer 182H 12/28/16 05:10: White Blood Count 5.9, Red Blood Count 3.47L, Hemoglobin 9.5#L, Hematocrit 29L, Mean Corpuscular Volume 83, Mean Corpuscular Hemoglobin 27, Mean Corpuscular Hemoglobin Concent 33, Red Cell Distribution Width 14.9H, Platelet Count 198, Mean Platelet Volume 10.5H, Neutrophils (%) (Auto) 65, Lymphocytes (%) (Auto) 16 , Monocytes (%) (Auto) 18H, Eosinophils (%) (Auto) 1, Basophils (%) (Auto) 0, Neutrophils # (Auto) 3.8, Lymphocytes # (Auto) 1.0, Monocytes # (Auto) 1.0, Eosinophils # (Auto) 0.1, Basophils # (Auto) 0.0, Prothrombin Time 27.0H, INR Comment 2.5H, Sodium Level 135, Potassium Level 3.9, Chloride Level 106, Carbon Dioxide Level 23, Anion Gap 6, Blood Urea Nitrogen 15, Creatinine 1.12, Estimat Glomerular Filtration Rate > 60, BUN/Creatinine Ratio 13, Glucose Level 130H, Calcium Level 8.8, Phosphorus Level 2.3, Magnesium Level 1.9, Albumin 2.3L 12/28/16 06:03: Glucometer 150H Microbiology 12/26/16 Blood Culture - Preliminary, Resulted No growth 12/26/16 Urine Culture - Final, Complete Assessment/Plan Assessment/Plan Assess & Plan/Chief Complaint SEPSIS - DUE TO PNEUMONIA - PT ON IV ANTIBIOTICS, (LEVAQUIN, CEFEPIME) - CONTINUE WITH ANTIBIOTICS AND MONITOR CHEST XRAYS. ENCOURAGE INCENTIVE SPIROMETRY HYPOTENSION - RESOLVED - MONITOR HEART RATE AND BLOOD PRESSURE. ARF - WITH CHRONIC RENAL FAILURE - STABILIZED CREATININE. HEART FAILURE - SYMPTOMS IMPROVED - SUPPORTIVE CARE AFIB - RATE CONTROLLED AT THIS TIME - MONITOR HEART RATE, CONTINUE WITH CHRONIC THERAPIES AND BLOOD THINNERS. DM II - ON SLIDING SCALE INSULIN ANEMIA - PT IS POST-TRANSFUSION YESTERDAY - MONITOR CBC TOMORROW. Clinical Quality Measures DVT/VTE Risk/Contraindication: Risk Factor Score Per Nursin RFS Level Per Nursing on Admit: 4+=Very High HORTENSIA REYES MD Dec 28, 2016 09:20
[2016-12-28] MEDS: DIGOXIN 0.125 MG (LANOXIN) TAB PO SCH (09:28)
[2016-12-28] MEDS: MAGNESIUM OXIDE (MAG-OX)400 MG TAB PO SCH ×2 (09:29→17:40)
[2016-12-28] MEDS: GABAPENTIN 300 MG (NEURONTIN) CAP PO SCH ×2 (09:29→20:56)
[2016-12-28] MEDS: NYSTATIN CREAM (MYCOSTATIN) 30 GM TUBE TP SCH ×3 (09:30→20:56)
[2016-12-28 12:50] VITALS: BP 144/70
[2016-12-28] MEDS: CEFEPIME 2 GM/NS 50 ML IVPB IV SCH ×2 (13:58)
[2016-12-28 16:25] VITALS: BP 134/86
[2016-12-28] MEDS: ALFUZOSIN HCL 10 MG TAB (UROXATRAL) PO SCH (17:40)
[2016-12-28] MEDS: warFARin 2.5 MG (COUMADIN) TAB PO SCH (17:40)
[2016-12-28] MEDS: LEVOFLOXACIN 750 MG/D5W 150 ML (PRE-MIX) IV SCH (17:41)
[2016-12-28 20:00] VITALS: BP 144/65
[2016-12-28] MEDS: FAMOTIDINE 20 MG (PEPCID) TABLET PO SCH (20:56)
[2016-12-28] MEDS: TRIMETHOPRIM 100 MG TAB (PROLOPRIM) NON-FORMULARY PO SCH (20:56)
[2016-12-28] MEDS: HYDROcodone/APAP 7.5 MG/325 MG (LORTAB, LORCET PLUS) TABLET PO PRN (21:01)
[2016-12-29] VITALS: BP 140/65
[2016-12-29 04:05] VITALS: BP 146/70
[2016-12-29] MEDS: NS IV 1000 ML 1,000 ML IV SCH (05:40)
[2016-12-29] MEDS: inSUlin (REGULAR) HUMAN 1 UNIT/0.01 ML (CHARGE PER UNIT) SC SCH ×4 (06:00→21:48)
[2016-12-29 06:11] LABS: BASOPHILS % (AUTO) 0 % (0-10); EOSINOPHILS # (AUTO) 0.1 10^3/uL (0.0-0.3); EOSINOPHILS % (AUTO) 2 % (0-10); LYMPHOCYTES # (AUTO) 1.1 X 10^3 (1.0-4.0); LYMPHOCYTES % (AUTO) 18 % (12-44); MEAN CORPUSCULAR HEMOGLOBIN 27 PG (25-34); MEAN CORPUSCULAR HGB CONC 33 G/DL (32-36); MEAN CORPUSCULAR VOLUME 83 FL (80-99); MEAN PLATELET VOLUME 10.3 FL (7.4-10.4); MONOCYTES % (AUTO) 16 % (0-12); NEUTROPHILS # (AUTO) 4.1 X 10^3 (1.8-7.8); NEUTROPHILS % (AUTO) 64 % (42-75); PLATELET COUNT 203 10^3/uL (130-400); RED CELL DISTRIBUTION WIDTH 15.1 % (10.0-14.5); WHITE BLOOD COUNT 6.4 10^3/uL (4.3-11.0)
[2016-12-29 06:23] LABS: INR 2.6 (0.8-1.4); PROTHROMBIN TIME PATIENT 27.9 SEC (12.2-14.7)
[2016-12-29 06:33] LABS: ALBUMIN 2.1 G/DL (3.2-4.5); ANION GAP 5 MMOL/L (5-14); BLOOD UREA NITROGEN 12 MG/DL (7-18); BUN/CREATININE RATIO 12; CALCIUM 8.8 MG/DL (8.5-10.1); CARBON DIOXIDE 22 MMOL/L (21-32); CHLORIDE 109 MMOL/L (98-107); GFR ESTIMATED > 60; GLUCOSE 120 MG/DL (70-105); MAGNESIUM 1.8 MG/DL (1.8-2.4); PHOSPHORUS 2.4 MG/DL (2.3-4.7); POTASSIUM 3.7 MMOL/L (3.6-5.0); SODIUM 136 MMOL/L (135-145)
[2016-12-29 08:00] VITALS: BP 124/61
--- NOTE | 2016-12-29 09:07 | Progress Note (SOAP) ---
Subjective Subjective/Events-last exam PT REPORTS THAT HE IS FEELING PRETTY GOOD THIS MORNING. HE DENIES ANY CHEST PAIN, SHORTNESS OF BREATH, ABDOMINAL PAIN, NAUSEA, DIZZINESS. HE REPORTS THAT HE HAD A GOOD BOWEL MOVEMENT THIS MORNING. STAFF DENIES ANY CONCERNS WITH THE PATIENT. Review of Systems General: No Fatigue, No Malaise HEENT: No Head Aches Pulmonary: No Dyspnea, No Cough Cardiovascular: No: Chest Pain Gastrointestinal: No: Abdominal Pain, Constipation, Diarrhea, Nausea Neurological: Confusion (INTERMITTENT), Weakness Objective Exam Vital Signs Date Time Temp Pulse Resp B/P (MAP) Pulse Ox O2 Delivery O2 Flow Rate FiO2 12/29/16 08:00 Nasal Cannula 2.00 12/29/16 04:05 97.0 77 20 146/70 93 Nasal Cannula 2.00 12/29/16 00:56 86 12/29/16 00:00 97.6 93 24 140/65 94 Nasal Cannula 2.00 12/28/16 21:00 Nasal Cannula 2.00 12/28/16 20:00 97.6 79 22 144/65 95 Nasal Cannula 2.00 12/28/16 19:00 73 12/28/16 16:25 97.1 82 22 134/86 96 Nasal Cannula 2.00 12/28/16 13:00 80 12/28/16 12:50 97.5 81 18 144/70 95 Room Air I & O 12/29/16 07:00 Intake Total 1360 ml Output Total 1650 ml Balance -290 ml Capillary Refill : Less Than 3 Seconds General Appearance: No Apparent Distress, WD/WN HEENT: PERRL/EOMI Neck: Full Range of Motion, Supple Respiratory: Chest Non Tender, Lungs Clear, Normal Breath Sounds Cardiovascular: Regular Rate, Rhythm Gastrointestinal: normal bowel sounds, non tender, soft Extremity: Pedal Edema (TRACE) Neurologic/Psychiatric: Alert, No Motor/Sensory Deficits, Normal Mood/Affect, Other (ALERT AND ORIENTED TO PERSON) Skin: Warm/Dry, Other (LOWER LEGS WITH DRESSINGS C/D/I) Lymphatic: No Adenopathy Results Lab Laboratory Tests 12/28/16 10:56: Glucometer 176H 12/28/16 15:44: Glucometer 167H 12/28/16 21:06: Glucometer 201H 12/29/16 05:30: White Blood Count 6.4, Red Blood Count 3.50L, Hemoglobin 9.5L, Hematocrit 29L, Mean Corpuscular Volume 83, Mean Corpuscular Hemoglobin 27, Mean Corpuscular Hemoglobin Concent 33, Red Cell Distribution Width 15.1H, Platelet Count 203, Mean Platelet Volume 10.3, Neutrophils (%) (Auto) 64, Lymphocytes (%) (Auto) 18 , Monocytes (%) (Auto) 16H, Eosinophils (%) (Auto) 2, Basophils (%) (Auto) 0, Neutrophils # (Auto) 4.1, Lymphocytes # (Auto) 1.1, Monocytes # (Auto) 1.0, Eosinophils # (Auto) 0.1, Basophils # (Auto) 0.0, Prothrombin Time 27.9H, INR Comment 2.6H, Sodium Level 136, Potassium Level 3.7, Chloride Level 109H, Carbon Dioxide Level 22, Anion Gap 5, Blood Urea Nitrogen 12, Creatinine 1.00, Estimat Glomerular Filtration Rate > 60, BUN/Creatinine Ratio 12, Glucose Level 120H, Calcium Level 8.8, Phosphorus Level 2.4, Magnesium Level 1.8, Albumin 2.1L 12/29/16 06:10: Glucometer 130H Microbiology 12/26/16 Blood Culture - Preliminary, Resulted No growth 12/26/16 Urine Culture - Final, Complete Assessment/Plan Assessment/Plan Assess & Plan/Chief Complaint SEPSIS - DUE TO PNEUMONIA - PT ON IV ANTIBIOTICS, (LEVAQUIN, CEFEPIME) - CONTINUE WITH ANTIBIOTICS AND MONITOR CHEST XRAYS. ENCOURAGE INCENTIVE SPIROMETRY HYPOTENSION - RESOLVED - MONITOR HEART RATE AND BLOOD PRESSURE. ARF - WITH CHRONIC RENAL FAILURE - STABILIZED CREATININE. HEART FAILURE - SYMPTOMS IMPROVED - SUPPORTIVE CARE AFIB - RATE CONTROLLED AT THIS TIME - MONITOR HEART RATE, CONTINUE WITH CHRONIC THERAPIES AND BLOOD THINNERS. DM II - ON SLIDING SCALE INSULIN ANEMIA - PT IS POST-TRANSFUSION - HGB STABLE - MONITOR CBC TOMORROW. Clinical Quality Measures DVT/VTE Risk/Contraindication: Risk Factor Score Per Nursin RFS Level Per Nursing on Admit: 4+=Very High HORTENSIA REYES MD Dec 29, 2016 09:07
[2016-12-29] MEDS: DIGOXIN 0.125 MG (LANOXIN) TAB PO SCH (10:03)
[2016-12-29] MEDS: MAGNESIUM OXIDE (MAG-OX)400 MG TAB PO SCH ×2 (10:03→18:00)
[2016-12-29] MEDS: GABAPENTIN 300 MG (NEURONTIN) CAP PO SCH ×2 (10:03→21:47)
[2016-12-29] MEDS: NYSTATIN CREAM (MYCOSTATIN) 30 GM TUBE TP SCH ×3 (10:04→21:47)
[2016-12-29 12:00] VITALS: BP 156/71
[2016-12-29] MEDS: CEFEPIME 2 GM/NS 50 ML IVPB IV SCH ×2 (14:43)
[2016-12-29 16:00] VITALS: BP 151/69
[2016-12-29] MEDS: ALFUZOSIN HCL 10 MG TAB (UROXATRAL) PO SCH (18:00)
[2016-12-29] MEDS: warFARin 2.5 MG (COUMADIN) TAB PO SCH (18:00)
[2016-12-29] MEDS: HYDROcodone/APAP 7.5 MG/325 MG (LORTAB, LORCET PLUS) TABLET PO PRN (19:21)
[2016-12-29 20:00] VITALS: BP 138/66
[2016-12-29] MEDS: FAMOTIDINE 20 MG (PEPCID) TABLET PO SCH (21:47)
[2016-12-29] MEDS: TRIMETHOPRIM 100 MG TAB (PROLOPRIM) NON-FORMULARY PO SCH (21:47)
[2016-12-30 00:52] VITALS: BP 147/70
[2016-12-30 05:00] VITALS: BP 140/78
[2016-12-30 05:42] LABS: BASOPHILS % (AUTO) 0 % (0-10); EOSINOPHILS # (AUTO) 0.1 10^3/uL (0.0-0.3); EOSINOPHILS % (AUTO) 2 % (0-10); LYMPHOCYTES # (AUTO) 1.1 X 10^3 (1.0-4.0); LYMPHOCYTES % (AUTO) 17 % (12-44); MEAN CORPUSCULAR HEMOGLOBIN 27 PG (25-34); MEAN CORPUSCULAR HGB CONC 32 G/DL (32-36); MEAN CORPUSCULAR VOLUME 83 FL (80-99); MEAN PLATELET VOLUME 9.7 FL (7.4-10.4); MONOCYTES # (AUTO) 1.1 X 10^3 (0.0-1.0); MONOCYTES % (AUTO) 17 % (0-12); NEUTROPHILS # (AUTO) 4.2 X 10^3 (1.8-7.8); NEUTROPHILS % (AUTO) 64 % (42-75); PLATELET COUNT 203 10^3/uL (130-400); RED BLOOD COUNT 3.62 10^6/uL (4.35-5.85); RED CELL DISTRIBUTION WIDTH 15.1 % (10.0-14.5); WHITE BLOOD COUNT 6.5 10^3/uL (4.3-11.0)
[2016-12-30] MEDS: inSUlin (REGULAR) HUMAN 1 UNIT/0.01 ML (CHARGE PER UNIT) SC SCH (06:00)
[2016-12-30 06:01] LABS: INR 2.6 (0.8-1.4); PROTHROMBIN TIME PATIENT 27.6 SEC (12.2-14.7)
[2016-12-30 06:25] LABS: ALBUMIN 2.2 G/DL (3.2-4.5); ANION GAP 5 MMOL/L (5-14); BLOOD UREA NITROGEN 10 MG/DL (7-18); BUN/CREATININE RATIO 11; CALCIUM 8.7 MG/DL (8.5-10.1); CARBON DIOXIDE 23 MMOL/L (21-32); CHLORIDE 107 MMOL/L (98-107); CREATININE SERUM 0.94 MG/DL (0.60-1.30); GFR ESTIMATED > 60; GLUCOSE 124 MG/DL (70-105); MAGNESIUM 1.8 MG/DL (1.8-2.4); PHOSPHORUS 2.3 MG/DL (2.3-4.7); POTASSIUM 3.8 MMOL/L (3.6-5.0); SODIUM 135 MMOL/L (135-145)
[2016-12-30] MEDS ORDERED: CEFD300C3 PO (07:55)
[2016-12-30] MEDS ORDERED: MAGN400T6 PO (07:55)
--- NOTE | 2016-12-30 07:57 | Discharge Inst-Skilled Nursing ---
Discharge Inst-Skilled NF Consult/Follow Up/Orders Follow Up Appt.: 1-2 weeks [facility] Skilled NF Admit to: [facility] Certification (SNF) I certify that SNF services are required to be given on an inpatient basis because of the above named patient's need for nursing home care on a continuing basis for the conditions(s) for which he/she was receiving inpatient hospital services prior to his/her transfer to the SNF. Assisted Facility Order: Nursing Services, [employer]-Evaluate & Treat, Physical Therapy-Evaluate & Treat Discharge Diet: ADA Diet Daily Activity as Tolerated: Yes New & Resume Previous Orders Hugo Sanchez Dec 30, 2016 07:56 HUGO SANCHEZ MD Dec 30, 2016 07:57
[2016-12-30 08:25] VITALS: BP 146/73
[2016-12-30] MEDS: DIGOXIN 0.125 MG (LANOXIN) TAB PO SCH (08:31)
[2016-12-30] MEDS: MAGNESIUM OXIDE (MAG-OX)400 MG TAB PO SCH (08:31)
[2016-12-30] MEDS: GABAPENTIN 300 MG (NEURONTIN) CAP PO SCH (08:32)
[2016-12-30] MEDS: NYSTATIN CREAM (MYCOSTATIN) 30 GM TUBE TP SCH (08:32)
[2016-12-30] MEDS ORDERED: FAMOTIDINE 20 MG (PEPCID) TABLET PO SCH (09:00)
[2016-12-30] MEDS ORDERED: LEVOFLOXACIN 750 MG/D5W 150 ML (PRE-MIX) IV SCH (11:00)
--- NOTE | 2016-12-31 00:21 | Discharge Summary ---
Diagnosis/Chief Complaint Date of Admission Dec 26, 2016 at 14:50 Date of Discharge Dec 30, 2016 at 09:45 Discharge Date: Dec 30, 2016 Admission Diagnosis Admission Diagnosis 81 yo M admitted 12/26/16 hypotension acute renal failure on chronic kidney disease stage III - Sepsis due to respiratory source- RLL pneumonia- congestive heart failure- atrial fibrillation- hypertension- diabetes mellitus ii- coronary artery disease- COPD- sleep apnea- venous stasis- Discharge Diagnosis hypotension - resolved acute renal failure on chronic kidney disease stage III - improved, at baseline Sepsis due to respiratory source- resolved RLL pneumonia- improved congestive heart failure- stable atrial fibrillation- stable hypertension- normotensive diabetes mellitus ii- coronary artery disease- stable COPD- sleep apnea- venous stasis- anemia of chronic disease. Reason Hospital Visit 81-year-old male with a history of sleep apnea, hypertension, diabetes, coronary artery disease, COPD, chronic kidney disease stage III, congestive heart failure and atrial fibrillation. 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 He was sent to the ED for further evaluation. Patient's blood pressure in the emergency department was 90s over 70s. He did have some normotensive blood pressures. Likely etiology for his hypotension is low volume status due to poor by mouth intake. Does not appear he is in septic shock. Patient's current baseline is weak and deconditioned due to previous admissions in October 2016 for sepsis due to pneumonia as well as VRE urinary tract infection and candidemia. He was previously at [facility] for these. He had recently been admitted to [facility] a couple weeks ago. His blood pressure seems to be responding to IV fluids. He was placed on vancomycin and Levaquin and cefepime for healthcare related pneumonia. Appears the pneumonia is in the right lower lobe. Patient's urine also appears to be infected but he does have an indwelling catheter and just finished Augmentin for urinary tract infection. patient is currently being fluid hydrated via IV. Of note on admission his hemoglobin was 8.0 and his INR was 1.9. Patient is on Coumadin for atrial fibrillation. We'll recheck his hemoglobin in the a.m. if continues to decline will need a blood transfusion. Furthermore patient's blood pressure does not continue respond IV fluids and antibiotics will have to do the 30 mL per kilogram bolus and transferred to ICU as it may appear he is moving toward septic shock. Currently though patient looks good and doesn't appear to be in any discomfort. Patient has not had any fevers. Lactic acid was not elevated. Patient admitted for further evaluation and treatment. Discharge Summary Hospital Course Hospital Course 81 yo M admitted 12/26/16 patient was started on broad-spectrum antibiotics for apparent sepsis likely due to right lower lobe pneumonia. Patient's antibiotics were tailored down to cefdinir prior to discharge. Patient's hypotension resolved. His acute on chronic renal failure also improved. Creatinine on discharge was around 1. It was noted though patient was anemic on admission with hemoglobin of 8; he did drop down to 7.2. We transfused him 2 units of packed red blood cells with a hemoglobin of 9.7 on day of discharge. On admission patient's INR was 1.9 we continued his warfarin and on day of discharge INR was 2.6. Wound care was consulted for his lower extremity venous stasis with ulcers. Given his multiple comorbidities complete healing of his lower extremities is unlikely. Patient will follow-up with wound care clinic in 1 week. Patient mood perked up by the day of discharge. Decision was made to leave his indwelling catheter in place, secondary to urinary retention. Patient will follow-up with Dr. Delatorre, urology on December 31. Felicity was discharged back to the [facility] on December 30, 2016. Labs Laboratory Tests 01/01/17 16:58: Procedures None. Consultations Dr. Farrell Discharge Physical Examination Allergies: Coded Allergies: sulfamethoxazole (Verified Allergy, Mild, RASH, 12/26/16) trimethoprim (Verified Allergy, Mild, RASH, 12/26/16) Vitals & I&Os Vital Signs Date Time Temp Pulse Resp B/P (MAP) Pulse Ox O2 Delivery O2 Flow Rate FiO2 12/30/16 09:00 Nasal Cannula 2.00 12/30/16 08:25 96.9 88 18 146/73 94 General Appearance: Alert, Oriented X3, Cooperative HEENT: Atraumatic Respiratory: Clear to Auscultation Cardiovascular: Regular Rate Abdominal: Normal Bowel Sounds, Soft Extremities: Other (edema- venous stasis) Neuro: Normal Speech Psych/Mental Status: Mental Status NL (at baseline.) Discharge Home Medications Reviewed and agree with Discharge Medication list on patient's Discharge Instruction sheet Condition at Discharge improved Instructions to Patient/Family Please see electronic discharge instructions given to patient. Clinical Quality Measures DVT/VTE Risk/Contraindication: Risk Factor Score Per Nursin RFS Level Per Nursing on Admit: 4+=Very High RUBEN SANCHEZ MD Dec 31, 2016 00:21
--- OUTSIDE RECORDS SUMMARY | 2017-01-19 06:17 | XMS REPORT | Continuity of Care Document ---
Author Author [facility] Organization [facility] Address Unknown Phone Unavailable Care Team Providers Care Certified Medical Coding Specialist Name Role Phone Ru Gomez PCP [phone] Source Comments Some departments are not documenting in the electronic medical record. If you do not see the information that you expected, contact Release of Information in the Health Information Management department at [phone] for further assistance in locating additional records.[facility] Active Allergies and Adverse Reactions Allergen Noted Date Severity Reactions Comments Bactrim 06/30/2015 Medium RASH Current Medications Prescription Sig. Disp. Refills Start End Date Status Date warfarin (COUMADIN) 5 mg Take 5 mg by mouth daily. Active tablet , , fri, sun 5mg, mon, wed, fri 7.5mg7.5 [...] O2 bleed in. Paroxysmal atrial fibrillation ([facility]) 06/30/2015 Overview: 12/02/13: Echo: LA size 5.5cm. EF 60%. Normal left ventricular systolic function. Mild MR, Mild TR. Essential hypertension 06/30/2015 COPD (chronic obstructive pulmonary disease) ([facility]) 06/30/2015 Last Assessment & Plan: COPD with [...] and Noc ox Coronary artery disease involving [place] coronary artery of [place] heart 10/2014 without angina pectoris Diabetic neuropathy [...] 05/31/2016 12:46 PM CDT Plan of Care Health Maintenance Due Date Last Done Comments Physical (Comprehensive) 1943 Exam Pertussis Vaccine 1947 Tetanus Vaccine 1953 Dilated Eye Exam 1954 Foot Exam 1954 Hba1c 1954 Microalbumin 1954 Shingles Vaccine 1996 Prevnar/Pneumovax (#1) 2001 Influenza Vaccine 05/30/2017 Results from Last 3 Months Not on file
--- OUTSIDE RECORDS SUMMARY | 2017-01-19 06:43 | XMS REPORT | Continuity of Care Document ---
Author Author [facility] Organization [facility] Address Unknown Phone Unavailable Care Team Providers Care Dipper And Drier Name Role Phone Ru Gomez PCP [phone] Source Comments Some departments are not documenting in the electronic medical record. If you do not see the information that you expected, contact Release of Information in the Health Information Management department at [phone] for further assistance in locating additional records.[facility] Active Allergies and Adverse Reactions Allergen Noted [...] for O2 bleed in. Paroxysmal atrial fibrillation ([facility]) 06/30/2015 Overview: 12/02/13: Echo: LA size 5.5cm. EF 60%. Normal left ventricular systolic function. Mild MR, Mild TR. Essential hypertension 06/30/2015 COPD (chronic obstructive pulmonary disease) ([facility]) 06/30/2015 Last Assessment & Plan: COPD [...] and Noc ox Coronary artery disease involving [place] coronary artery of [place] heart 10/2014 without angina pectoris Diabetic neuropathy [...]
== END 2016-12-30 09:45 | DRG 871 ==
LOC: DELPENDDIS → EDUNIT# 11:46 → ER 11:49 → 4TH 14:50
PROVIDERS: ADMIT Family Medicine; ATTEND Family Medicine
DX: A41.9 Sepsis, unspecified organism (principal); J44.0 Chronic obstructive pulmonary disease with (acute) lower respiratory infection; J18.9 Pneumonia, unspecified organism; N17.9 Acute kidney failure, unspecified; N30.00 Acute cystitis without hematuria; I13.0 Hypertensive heart and chronic kidney disease with heart failure and stage 1 through stage 4 chronic kidney disease, or unspecified chronic kidney disease; L97.411 Non-pressure chronic ulcer of right heel and midfoot limited to breakdown of skin; L97.422 Non-pressure chronic ulcer of left heel and midfoot with fat layer exposed; L97.212 Non-pressure chronic ulcer of right calf with fat layer exposed; I50.9 Heart failure, unspecified; E11.622 Type 2 diabetes mellitus with other skin ulcer; I95.9 Hypotension, unspecified; E86.0 Dehydration; N18.3 Chronic kidney disease, stage 3 (moderate); I83.012 Varicose veins of right lower extremity with ulcer of calf; G47.30 Sleep apnea, unspecified; I25.10 Atherosclerotic heart disease of native coronary artery without angina pectoris; I48.91 Unspecified atrial fibrillation; E11.42 Type 2 diabetes mellitus with diabetic polyneuropathy; N40.0 Benign prostatic hyperplasia without lower urinary tract symptoms; K21.9 Gastro-esophageal reflux disease without esophagitis; E78.00 Pure hypercholesterolemia, unspecified; E11.22 Type 2 diabetes mellitus with diabetic chronic kidney disease; C44.91 Basal cell carcinoma of skin, unspecified; Z99.81 Dependence on supplemental oxygen; Z79.01 Long term (current) use of anticoagulants; Z87.891 Personal history of nicotine dependence; Z79.4 Long term (current) use of insulin; E83.42 Hypomagnesemia; D63.1 Anemia in chronic kidney disease
CPT/HCPCS: 36415; 71010; 80053; 80069; 81000; 82962; 83605; 83735; 85025; 85610; 85730; 86141; 86850; 86900; 86901; 86920; 87040; 87088; 93005; 93041; 96365

== ENCOUNTER 2017-01-29 07:51 | Day surgery (SDC) | payer MEDICARE, BC ==
[2017-01-29] VITALS (19 sets, daily range): BP systolic 124–176; BP diastolic 68–94
[~2017-01-29] VITALS: Ht 172.7 cm; Wt 102.2 kg
[~2017-01-29 07:51] MED LIST changes: +ALBU2.5V4 IH; +ASCO-262 PO; +CARV12.53 PO; +CRAN500C3 PO; +DIGO125T6 PO; +DIPH25CA6 PO; +FAMO-119 PO; +GUAI-366 PO; +HYDR-3816 PO; +INSU100V SQ; +LOSA25TA2 PO; +MAGN400T6 PO; +MELA1TAB10 PO; +NEOM14.217 TP; +ONDA4TAB10 PO; +POLY119P5 PO; +POTA-51 PO; +TAMS0.4C98 PO; +TRIM100T PO; +WARF2.5T PO
[2017-01-29] MEDS ORDERED: NS IV 1000 ML 1,000 ML ONE ×2 (08:03→10:33)
[2017-01-29] MEDS ORDERED: HEParin (CATH LAB) 2,000 ML IV ONE (08:03)
[2017-01-29] MEDS ORDERED: LIDOCAINE 1% INJ 20 ML (XYLOCAINE) VIAL ONE (08:03)
[2017-01-29] MEDS ORDERED: NS IV 1000 ML 1,000 ML IV SCH ×2 (08:09→08:30)
[2017-01-29 08:27] LABS: MEAN PLATELET VOLUME 9.7 FL (7.4-10.4); RED BLOOD COUNT 3.72 10^6/uL (4.35-5.85); RED CELL DISTRIBUTION WIDTH 17.3 % (10.0-14.5); WHITE BLOOD COUNT 13.2 10^3/uL (4.3-11.0)
[2017-01-29 08:48] LABS: INR 1.2 (0.8-1.4); PROTHROMBIN TIME PATIENT 14.4 SEC (12.2-14.7)
--- NOTE | 2017-01-29 08:55 | Cardiac Procedure Note-CS/ASA ---
Pre-Procedure Note Pre-Op Procedure Note H&P Reviewed The H&P was reviewed, patient examined and no changes noted. Date H&P Reviewed: January 29, 2017 Time H&P Reviewed: 08:55 Conscious Sedation Pre-Proced Time Reviewed: 08:55 ASA Class: 3 Airway Mallampati Classification: ([place] appropriate class) I. II. III, IV Lungs Heart ASA score ASA 1: a normal healthy patient ASA 2: a patient with a mild systemic disease (mid diabetes, controlled hypertension, obesity x ASA 3: a patient with a severe systemic disease that limits activity (angina , COPD, prior Myocardial infarction) ASA 4: a patient with an incapacitating disease that is a constant threat to life (CHF, renal failure) ASA 5: a moribund patient not expected to survive 24 hrs. (ruptured aneurysm) ASA 6: a declared brain patient whose organs are being harvested. For emergent operations, add the letter E after the classification Grade 3 Sedation Plan: Analgesia, Amnesia, Plan communicated to team members, Discussed options with patient/fam, Discussed risks with patient/fam Note The patient is an appropriate candidate to undergo the planned procedure, sedation, and anesthesia. The patient immediately re-assessed prior to indication. KEELEY ROSSI MD January 29, 2017 08:55
[2017-01-29 08:58] LABS: ALANINE AMINOTRANSFERASE 9 U/L (0-55); ALBUMIN 3.1 G/DL (3.2-4.5); ANION GAP 8 MMOL/L (5-14); ASPARTATE AMINO TRANSFERASE 11 U/L (5-34); BLOOD UREA NITROGEN 11 MG/DL (7-18); BUN/CREATININE RATIO 10; CALCIUM 9.5 MG/DL (8.5-10.1); CARBON DIOXIDE 28 MMOL/L (21-32); CHLORIDE 100 MMOL/L (98-107); CHOLESTEROL 121 MG/DL (< 200); CREATININE SERUM 1.12 MG/DL (0.60-1.30); DIRECT LDL 85 MG/DL (1-129); GFR ESTIMATED > 60; GLUCOSE 227 MG/DL (70-105); POTASSIUM 3.6 MMOL/L (3.6-5.0); SODIUM 136 MMOL/L (135-145); TOTAL PROTEIN 7.2 G/DL (6.4-8.2); TRIGLYCERIDES 79 MG/DL (<150); VLDL CHOLESTEROL 16 MG/DL (5-40)
--- NOTE | 2017-01-29 09:06 | Diagnostic Imaging Report ---
INDICATION: Peripheral vascular disease. COMPARISON: 12/26/2016. FINDINGS: Old deformities to right ribs superolaterally is a chronic finding. The right basilar parenchymal opacity has improved from the prior exam. No new parenchymal abnormality. No effusion or pneumothorax. The heart size is at the upper limits of normal but stable. No gross over dilatation of the vascularity. No pleural fluid. IMPRESSION: Improvements in right basilar parenchymal opacity. Residual density could be some scarring from the prior infiltrate. Stable rib deformities are chronic. No new abnormality. Dictated by: Dictated on workstation # [id number]
[2017-01-29] MEDS ORDERED: MULT-928 PO (09:07)
[2017-01-29] MEDS ORDERED: ALB0.5V PO (09:07)
[2017-01-29] MEDS ORDERED: fentaNYL INJECTION 100 MCG/2 ML AMP ONE (09:53)
[2017-01-29] MEDS ORDERED: MIDAZOLAM 5 MG/5 ML (VERSED) VIAL ONE (09:53)
[2017-01-29] MEDS ORDERED: HEParin 1000 UNIT/ML (10ML VIAL) FOR BOLUS ONE (10:05)
[2017-01-29] MEDS ORDERED: NITROGLYCERIN DRIP 25 MG/D5W 250 ML IV ONE (10:05)
[2017-01-29] MEDS ORDERED: CLOPIDOGREL 300 MG (PLAVIX) TABLET PO ONE (11:31)
[2017-01-29] MEDS ORDERED: ASPIRIN 325 MG (5 GR) TABLET ONE (11:31)
[2017-01-29] MEDS ORDERED: RT-ALBUTEROL/IPRATROPIUM 3 ML (DUONEB) VIAL IH PRN (11:45)
[2017-01-29] MEDS ORDERED: HYDROcodone/APAP 7.5 MG/325 MG (LORTAB, LORCET PLUS) TABLET PO PRN (11:45)
[2017-01-29] MEDS ORDERED: PATIENT MAY USE OWN MEDS, ALL PO SCH (11:45)
[2017-01-29] MEDS ORDERED: RT-ALBUTEROL SULF 2.5 MG/3 ML PRE-MIX VIAL IH PRN ×2 (17:45→18:00)
[2017-01-29] MEDS ORDERED: ONDANSETRON 4 MG (ZOFRAN) ORAL DISSOLVE TAB PO PRN (17:45)
[2017-01-29] MEDS ORDERED: warFARin 5 MG (COUMADIN) TAB PO SCH (18:00)
[2017-01-29] MEDS ORDERED: ALFUZOSIN HCL 10 MG TAB (UROXATRAL) PO SCH (18:00)
[2017-01-29] MEDS: NEO/POLY/BAC (NEOSPORIN) OINT 15 GM TUBE TP SCH ×2 (18:49→22:10)
--- NOTE | 2017-01-29 19:14 | CARDIAC CATHETERIZATION ---
DATE OF SERVICE: 01/29/2017 REFERRING PHYSICIAN: Dr. Hugo Alexander. BRIEF HISTORY: The patient is an 81-year-old gentleman with extensive peripheral arterial disease, had complex intervention in [address] Gutiérrez to the right lower extremity and he was 0029 for the left lower extremity. He felt better, no further interventions were made, then he developed nonhealing ulcers on his legs. The patient was scheduled for peripheral angiogram. PROCEDURE NOTE: After I explained the procedure to the patient, all pros and cons were explained, all questions were answered. The patient signed the consent, then he was placed on the cardiac catheterization laboratory. The right groin was prepped in a sterile fashion, local anesthesia applied to the right groin. A 6-Belarusian sheath was placed in the right femoral artery, runoff of the right lower extremity was done. Then Pigtail catheter was advanced to the abdominal aorta, abdominal aortogram and evaluation of the bifurcation was made. Then using the pigtail catheter I advanced the Storq wire across the pigtail catheter to the left lower extremity, exchanged pigtail to a straight catheter and did runoff of the left lower extremity. At that point, I decided to proceed with percutaneous intervention. The patient had total occlusion of the anterior tibial artery, posterior tibial artery and peroneal artery on the left lower extremity. The Storq wire was advanced again, straight catheter was removed and the sheath while exchanging to 55 mm 6-Belarusian sheath, runoff of the left lower extremity was made. Then, I advanced the straight catheter again and attempted to cross the arterial tibial total occlusion with command wire without success, then straight catheter was removed and I advanced mini catheter to the anterior tibial artery. I was able to use it as support to cross the lesion down to the foot. The command wire was advanced to the foot, then the mini catheter was advanced to the foot and the command wire was removed. I directly injected in the distal anterior tibial artery. I evaluated the artery, then I proceeded with advancement of ViperWire. The ViperWire was advanced, then I used CSI atherectomy at 60,000 rpm throughout the proximal and mid anterior tibial artery; then 90,000 rpm. Then I proceed with balloon dilatation, using 2.5 x 200 mm [place] balloon, inflated multiple times. Then the balloon was removed and the wire was retracted and advanced into the peroneal artery. The peroneal artery was also totally occluded, I advanced the [place] balloon again and inflated it once, then I used a 3.0 x 60 mm [place] balloon to the proximal area. Angiogram at the end showed excellent result, no residual stenosis. At that point, I exchanged the catheter back to short 6-Belarusian sheath and then the sheath was removed and device deployed, no complication noticed. FINDINGS: 1. Abdominal aortogram showed atherosclerotic plaque. No dissection or aneurysm. 2. The left lower extremity SFA has heavy atherosclerotic plaque. Mild to moderate disease, nonobstructive disease. Total occlusion of the anterior tibial, posterior tibial and peroneal artery. Successful atherectomy to the anterior tibial using CSI, then balloon angioplasty using 2.5 x 200 mm [place] balloon, multiple inflation with excellent results. Peroneal artery was totally occluded, successful balloon angioplasty using 2.5 x 200 and 3.0 x 60 mm to the proximal portion with excellent results. The posterior tibial artery is totally occluded. After the intervention of the anterior tibial and peroneal artery, it was getting filled with collaterals. Decision was made to evaluate his response and the wound healing. 4. Right lower extremity, runoff of the right lower extremity has diffuse atherosclerotic disease in the SFA. Total occlusion of the anterior tibial, posterior tibial and peroneal artery, which will be staged to be brought later. TOTAL CONTRAST USED: 115 mL. TOTAL RADIATION DOSE: 158 mGy. IN CONCLUSION: 1. Total occlusion of the anterior tibial, posterior tibial and peroneal artery on the left lower extremity, successful atherectomy to the anterior tibial, then balloon angioplasty using 2.5 x 200 balloon with excellent results. 2. Total occlusion of the peroneal artery on the left lower extremity, successful balloon angioplasty using 2.5 x 200, then proximally 3.0 x 60 with excellent results. 3. Total occlusion of the posterior tibial artery on the left lower extremity, that was not treated due to the fact that after intervention on the anterior tibial and peroneal artery, there was good collateral filling the distal posterior tibial artery. 4. Severe disease below the knee on the right lower extremity with total occlusion of the anterior tibial, posterior tibial and peroneal artery with planned intervention to be staged due to limit the amount of contrast exposure and due to the fact that we will need to access the left groin for the intervention. Job ID: [id number] DocumentID: [id number] Dictated Date: 01/29/2017 12:00:38 Plant Director Date: 01/29/2017 14:30:43 Dictated By: KEELEY ROSSI MD
[2017-01-29] MEDS: FUROSEMIDE 40 MG (LASIX) TAB PO SCH (19:47)
[2017-01-29] MEDS: ASCORBIC ACID (VIT C) 500 MG TABLET PO SCH (19:47)
[2017-01-29] MEDS: KCL 20 MEQ TAB (K-DUR) PO SCH (19:47)
[2017-01-29] MEDS ORDERED: CRANBERRY 500 MG PO SCH (21:00)
[2017-01-29] MEDS ORDERED: MELATONIN 3 MG TABLET PO SCH (21:00)
[2017-01-29] MEDS ORDERED: NON-FORMULARY MEDICATION 1 EA EA (Trimethoprim 100 MG) PO SCH (21:00)
[2017-01-29] MEDS ORDERED: POLYETHYLENE GLYCOL 17 GM (MIRALAX) PACK PO PRN (21:00)
[2017-01-29] MEDS ORDERED: inSUlin (REGULAR) HUMAN 1 UNIT/0.01 ML (CHARGE PER UNIT) ONE (22:05)
[2017-01-29] MEDS: guaiFENesin/DM (ROBITUSSIN DM) 10 ML UDC PO SCH (22:10)
[2017-01-29] MEDS: inSUlin (REGULAR) HUMAN 1 UNIT/0.01 ML (CHARGE PER UNIT) SC SCH (22:10)
[2017-01-29] MEDS: CARVEDILOL 12.5 MG (COREG) TABLET PO SCH (22:10)
[2017-01-29] MEDS: GABAPENTIN 300 MG (NEURONTIN) CAP PO SCH (22:10)
[2017-01-29] MEDS: FAMOTIDINE 20 MG (PEPCID) TABLET PO SCH (22:11)
[2017-01-30] VITALS (8 sets, daily range): BP systolic 124–149; BP diastolic 71–95
[2017-01-30 03:49] LABS: MEAN PLATELET VOLUME 9.6 FL (7.4-10.4); RED BLOOD COUNT 3.3 10^6/uL (4.35-5.85); RED CELL DISTRIBUTION WIDTH 17.3 % (10.0-14.5); WHITE BLOOD COUNT 12.2 10^3/uL (4.3-11.0)
[2017-01-30 04:01] LABS: ANION GAP 10 MMOL/L (5-14); BLOOD UREA NITROGEN 11 MG/DL (7-18); BUN/CREATININE RATIO 11; CALCIUM 9.2 MG/DL (8.5-10.1); CARBON DIOXIDE 26 MMOL/L (21-32); CHLORIDE 103 MMOL/L (98-107); CREATININE SERUM 1.01 MG/DL (0.60-1.30); GFR ESTIMATED > 60; GLUCOSE 181 MG/DL (70-105); POTASSIUM 3.6 MMOL/L (3.6-5.0); SODIUM 139 MMOL/L (135-145)
[2017-01-30] MEDS: FUROSEMIDE 40 MG (LASIX) TAB PO SCH (06:17)
[2017-01-30] MEDS: ASCORBIC ACID (VIT C) 500 MG TABLET PO SCH (06:17)
[2017-01-30] MEDS: inSUlin (REGULAR) HUMAN 1 UNIT/0.01 ML (CHARGE PER UNIT) SC SCH (06:17)
[2017-01-30] MEDS: KCL 20 MEQ TAB (K-DUR) PO SCH (06:18)
[2017-01-30] MEDS: NS IV 1000 ML 1,000 ML IV SCH ×2 (06:18→06:19)
[2017-01-30] MEDS ORDERED: MULTIVIT W/MINERALS TAB (THERAGRAN M) PO SCH (07:00)
[2017-01-30] MEDS ORDERED: ASPI-983 PO (07:35)
[2017-01-30] MEDS ORDERED: CLOP75TA28 PO (07:35)
--- NOTE | 2017-01-30 07:36 | Discharge Inst-Post CATH ---
Discharge Inst-CATH Post Cardiac Cath D/C Inst Follow Up/Plan Appointment with Dr. Niño's office on Friday CARDIAC CATH DISCHARGE INSTRUCTIONS *Hold Metformin for 48 hours post heart cath. ACTIVITY * Go Home directly and rest. * Limit activity of the leg (or wrist if it was used) for 7 days including aerobics, swimming, jogging, bicycling, etc. * Restrict stair-climbing for 7 days if possible, if not, climb up with your non -cath leg, then bring together on the same step. * Avoid lifting, pushing, pulling or excessive movement of the affected extremity for 7 days. * Customary sexual activity may be resumed after 2 days-use caution not to use a position that strains or causes pain to the affected extremity. * No driving for 24 hours. * NO SMOKING. * Avoid straining for bowel movements for 7 days. * Gentle walking on level ground is allowed. * Returning to work will depend on the type of procedure and the results. Your doctor will discuss this with you. CALL YOUR DOCTOR FOR ANY OF THE FOLLOWING: *If bleeding from the puncture site occurs- Apply gentle pressure to site with clean cloth and call your doctor or EMS. * If a knot or lump forms under the skin, increases in size, or causes pain. * If bruising appears to be worsening or moving further down your leg instead of disappearing. * Temperature above 101 F. CARE OF YOUR GROIN INCISION; * Bruising or purple discoloration of the skin near the puncture site is common. * You may shower only, no bathtub bathing for 5 days. Be careful to avoid slipping as your leg may feel stiff. * If a closure device was used on your femoral artery, please see the attached guide regarding care of the device and your leg. * REMOVE the dressing from your groin the next day after your procedure in the shower. CARE OF YOUR WRIST INCISION; * Bruising or purple discoloration of the skin near the puncture site is common. * You may shower. * DO NOT submerge wrist. * Remove dressing in 24 hours. KEELEY NIÑO MD January 30, 2017 07:36
--- NOTE | 2017-01-30 07:38 | Clinic Account Progress/Dx ---
Clinic Account Progress/Dx DIAGNOSIS: Diagnosis peripheral arterial disease Hypertension Hyperlipidemia Coronary artery disease KEELEY ROSSI MD January 30, 2017 07:38
--- NOTE | 2017-01-30 07:38 | Cardiology Progress Note ---
Subjective Subjective/Events-last exam patient is laying down in bed, was confused last night, feeling better, groin is healing well. Review of Systems General: No Chills, No Night Sweats, No Fatigue, No Malaise, No Appetite, No Other HEENT: No Head Aches, No Visual Changes, No Eye Pain, No Ear Pain, No Dysphasia , No Sinus Congestion, No Post Nasal Drip, No Sore Throat, No Other Pulmonary: No Dyspnea, No Cough, No Pleuritic Chest Pain, No Other Cardiovascular: No: Chest Pain, Edema, Lt Headedness, Orthopnea, Other, Palpitations, Paroxysmal Noc. Dyspnea Objective-Cardiology Exam Last Set of Vital Signs Vital Signs 01/30/17 01/30/17 04:00 06:00 Temp 97.0 Pulse 88 Resp 22 B/P (MAP) 149/79 Pulse Ox 97 O2 Delivery Nasal Cannula O2 Flow Rate 4.00 Capillary Refill : Less Than 3 Seconds I&O Intake and Output 01/30/17 00:00 Intake Total 1350 ml Output Total 125 ml Balance 1225 ml Intake Oral 350 ml IV Total 1000 ml Output Urine Total 125 ml # Urine Diapers 2 General: Alert, Oriented X3, Cooperative HEENT: Atraumatic, PERRLA Neck: Supple, No JVD, No Thyromegaly Lungs: Clear to Auscultation, Normal Air Movement Heart: Regular Rate, Normal S1, Normal S2, No Murmurs Abdomen: Normal Bowel Sounds, Soft, No Tenderness, No Hepatosplenomegaly, No Masses Extremities: No Clubbing, No Cyanosis, No Edema, Normal Pulses, No Tenderness/ Swelling Skin: No Rashes, No Breakdown, No Significant Lesion Neuro: Normal Gait, Normal Speech, Strength at 5/5 X4 Ext, Normal Tone, Sensation Intact Psych/Mental Status: Mental Status NL, Mood NL Results Lab Laboratory Tests 01/29/17 08:20 01/30/17 03:30 A/P-Cardiology Admission Diagnosis peripheral arterial disease Hypertension Hyperlipidemia Coronary artery disease Assessment/Plan peripheral arterial disease status post complex intervention to the left lower extremity, planning to do intervention on the right lower except in the future Coronary artery disease clinically stable Hypertension-controlled Hyperlipidemia Paroxysmal atrial fibrillation KEELEY ROSSI MD January 30, 2017 07:38
[2017-01-30] MEDS: guaiFENesin/DM (ROBITUSSIN DM) 10 ML UDC PO SCH (08:51)
[2017-01-30] MEDS: GABAPENTIN 300 MG (NEURONTIN) CAP PO SCH (08:52)
[2017-01-30] MEDS: FAMOTIDINE 20 MG (PEPCID) TABLET PO SCH (08:52)
[2017-01-30] MEDS: CARVEDILOL 12.5 MG (COREG) TABLET PO SCH (08:52)
[2017-01-30] MEDS: NEO/POLY/BAC (NEOSPORIN) OINT 15 GM TUBE TP SCH (08:53)
[2017-01-30] MEDS ORDERED: DIGOXIN 0.125 MG (LANOXIN) TAB PO SCH (09:00)
[2017-01-30] MEDS ORDERED: CLOPIDOGREL 75 MG (PLAVIX) TABLET PO SCH (09:00)
[2017-01-30] MEDS ORDERED: LOSARTAN 25 MG (COZAAR) TAB PO SCH (09:00)
[2017-01-30] MEDS ORDERED: ASPIRIN E.C. 81 MG (ECOTRIN) TAB PO SCH (09:00)
[2017-01-30] MEDS ORDERED: warFARin 2.5 MG (COUMADIN) TAB PO SCH (18:00)
== END 2017-01-30 09:41 ==
LOC: CATH 07:51 → ICU 15:00 → ENPENDDIS 01-30 09:00 → CATH 01-30 09:41
PROVIDERS: ATTEND Internal Medicine Cardiovascular Disease
DX: I70.203 Unspecified atherosclerosis of native arteries of extremities, bilateral legs (principal); I70.92 Chronic total occlusion of artery of the extremities; I70.0 Atherosclerosis of aorta; L97.909 Non-pressure chronic ulcer of unspecified part of unspecified lower leg with unspecified severity; E11.40 Type 2 diabetes mellitus with diabetic neuropathy, unspecified; I48.0 Paroxysmal atrial fibrillation; I10 Essential (primary) hypertension; E78.5 Hyperlipidemia, unspecified; G62.9 Polyneuropathy, unspecified; I87.2 Venous insufficiency (chronic) (peripheral); J44.9 Chronic obstructive pulmonary disease, unspecified; G47.33 Obstructive sleep apnea (adult) (pediatric); Z98.62 Peripheral vascular angioplasty status; Z87.891 Personal history of nicotine dependence; Z79.4 Long term (current) use of insulin; Z79.899 Other long term (current) drug therapy; Z79.01 Long term (current) use of anticoagulants
CPT/HCPCS: 36245; 36415; 37228; 37229; 71010; 75625; 75716; 75774; 80048; 80053; 80061; 82962; 85027; 85347; 85610; 85730; 87081; 93005; 94640

== ENCOUNTER 2017-02-05 07:15 | Day surgery (SDC) | payer MEDICARE, BC ==
[~2017-02-05] VITALS: Ht 172.7 cm; Wt 104.6 kg
[2017-02-05] VITALS (9 sets, daily range): BP systolic 125–163; BP diastolic 70–114
[~2017-02-05 07:15] MED LIST changes: +ALB0.5V PO; +CLOP75TA28 PO; +MULT-928 PO
[2017-02-05] MEDS ORDERED: LIDOCAINE 1% INJ 20 ML (XYLOCAINE) VIAL ONE (07:17)
[2017-02-05] MEDS ORDERED: HEParin (CATH LAB) 2,000 ML IV ONE (07:17)
[2017-02-05] MEDS ORDERED: NS IV 1000 ML 1,000 ML ONE (07:17)
[2017-02-05] MEDS ORDERED: NS IV 1000 ML 1,000 ML IV SCH (07:24)
[2017-02-05 07:39] LABS: MEAN PLATELET VOLUME 10.4 FL (7.4-10.4); RED BLOOD COUNT 3.6 10^6/uL (4.35-5.85); RED CELL DISTRIBUTION WIDTH 18.6 % (10.0-14.5); WHITE BLOOD COUNT 11.8 10^3/uL (4.3-11.0)
[2017-02-05] MEDS ORDERED: ASPI-983 PO (07:41)
[2017-02-05] MEDS ORDERED: CLOP75TA69 PO ×2 (07:41→07:42)
[2017-02-05 07:47] LABS: INR 1.2 (0.8-1.4); PROTHROMBIN TIME PATIENT 14.4 SEC (12.2-14.7)
[2017-02-05 08:01] LABS: ALBUMIN 3.2 G/DL (3.2-4.5); BILIRUBIN,TOTAL 0.7 MG/DL (0.1-1.0); CALCIUM 9.5 MG/DL (8.5-10.1); CREATININE SERUM 1.2 MG/DL (0.60-1.30); POTASSIUM 3.9 MMOL/L (3.6-5.0); TOTAL PROTEIN 7.1 G/DL (6.4-8.2)
[2017-02-05] MEDS ORDERED: MIDAZOLAM 5 MG/5 ML (VERSED) VIAL ONE ×2 (08:09→09:00)
[2017-02-05] MEDS ORDERED: fentaNYL INJECTION 100 MCG/2 ML AMP ONE ×2 (08:10→09:00)
[2017-02-05] MEDS ORDERED: NITROGLYCERIN DRIP 25 MG/D5W 250 ML IV ONE (08:13)
[2017-02-05] MEDS ORDERED: HEParin 1000 UNIT/ML (10ML VIAL) FOR BOLUS ONE (08:13)
[2017-02-05] MEDS ORDERED: ASPIRIN 325 MG (5 GR) TABLET ONE (09:52)
[2017-02-05] MEDS ORDERED: CLOPIDOGREL 75 MG (PLAVIX) TABLET ONE (09:53)
--- NOTE | 2017-02-05 09:56 | Cardiac Procedure Note-CS/ASA ---
Pre-Procedure Note Pre-Op Procedure Note H&P Reviewed The H&P was reviewed, patient examined and no changes noted. Date H&P Reviewed: February 05, 2017 Time H&P Reviewed: 08:00 Conscious Sedation Pre-Proced Time Reviewed: 08:00 ASA Class: 3 Airway Mallampati Classification: ([place] appropriate class) I. II. III, IV Lungs Heart ASA score ASA 1: a normal healthy patient ASA 2: a patient with a mild systemic disease (mid diabetes, controlled hypertension, obesity x ASA 3: a patient with a severe systemic disease that limits activity (angina , COPD, prior Myocardial infarction) ASA 4: a patient with an incapacitating disease that is a constant threat to life (CHF, renal failure) ASA 5: a moribund patient not expected to survive 24 hrs. (ruptured aneurysm) ASA 6: a declared brain patient whose organs are being harvested. For emergent operations, add the letter E after the classification Grade 3 Sedation Plan: Analgesia, Amnesia, Plan communicated to team members, Discussed options with patient/fam, Discussed risks with patient/fam Note The patient is an appropriate candidate to undergo the planned procedure, sedation, and anesthesia. The patient immediately re-assessed prior to indication. KEELEY ROSSI MD February 05, 2017 09:56
[2017-02-05] MEDS ORDERED: NON-FORMULARY MEDICATION 1 EA EA (Polyethylene Glycol 3350 (Miralax) 17 GM) PO PRN (10:00)
[2017-02-05] MEDS ORDERED: NON-FORMULARY MEDICATION 1 EA EA (Ondansetron HCl 4 MG) PO PRN (10:00)
[2017-02-05] MEDS ORDERED: HYDROcodone/APAP 7.5 MG/325 MG (LORTAB, LORCET PLUS) TABLET PO PRN (10:00)
[2017-02-05] MEDS ORDERED: RT-ALBUTEROL/IPRATROPIUM 3 ML (DUONEB) VIAL IH PRN (10:00)
[2017-02-05] MEDS ORDERED: NON-FORMULARY MEDICATION 1 EA EA (Albuterol Sulfate 2.5 MG) PO PRN (10:00)
[2017-02-05] MEDS ORDERED: PATIENT MAY USE OWN MEDS, ALL PO SCH (10:00)
[2017-02-05] MEDS: NS IV 1000 ML 1,000 ML IV SCH ×2 (10:05→21:13)
--- NOTE | 2017-02-05 10:18 | CARDIAC CATHETERIZATION ---
DATE OF SERVICE: 02/05/2017 PERIPHERAL ANGIOGRAM AND DISCHARGE SUMMARY BRIEF HISTORY: The patient is an 81-year-old gentleman with a history of peripheral arterial disease, nonhealing wound on his feet. The patient underwent angioplasty to the anterior tibial and peroneal artery of the left lower extremity last week. The wound is healing. During that procedure, angiogram to the right lower extremity showed severe disease in the right lower extremity below the knee. He was staged to have a procedure done today. PROCEDURE NOTE: After explaining the procedure to the patient, all pros and cons were explained, all questions were answered. The patient signed the consent and then he was placed in the cardiac catheterization laboratory. The left groin was prepped in a sterile fashion. Local anesthesia applied. A 6-Malaysian sheath was placed in the left groin. Then, I proceed with advancement of a rim catheter and long stalk wire and then straight catheter down to the popliteal artery. Angiogram to the right lower extremity showed the anterior tibial artery to have mild to moderate disease. The peroneal artery is totally occluded and the posterior tibial artery has severe disease diffusely. The patient was given 5,000 units of heparin. I was able to advance Command wire tucked in the distal portion of the anterior tibial artery. Then, I used a 2.0 x 100 mm [place] balloon inflated multiple times in the anterior tibial artery and then I advanced Orient 3.0 x 200 mm to the proximal anterior tibial artery, also inflated once. The balloon was removed. Angiogram showed excellent flow in the anterior tibial artery and posterior tibial artery. At that point, I pulled the catheter out and then the long sheath was exchanged to a short sheath and I advanced a pigtail catheter to the abdominal aorta. Abdominal aortogram was done, which showed no complication. Then, I did runoff through the sheath to the left lower extremity and evaluated the arteries below the knee that appeared still patent. At the end of the procedure, sheath was removed, Mynx device deployed, hemostasis achieved. Total contrast used was 65 mL. Total radiation dose was 183 mL. FINDINGS: 1. Abdominal aortogram: Showed atherosclerotic disease in the abdominal aorta and the bifurcation. No dissection or aneurysm. 2. Left lower extremity: The left lower extremity runoff was done just below the knee, which showed patent anterior tibial and peroneal artery, excellent flow through the posterior tibial and anterior tibial at the foot area. 3. Right lower extremity: The right lower extremity runoff done at multiple different angles to evaluate the posterior tibial artery appeared to have ostial disease, about 50%-60% nonobstructive disease. The peroneal artery is totally occluded. The anterior tibial artery has severe diffuse disease. Successful balloon angioplasty using 2.0 x 100 [place] balloon, then 3.0 x 200 [place] balloon with excellent results. CONCLUSION: 1. Successful balloon angioplasty to the anterior tibial artery of the right lower extremity with excellent flow. 2. Mild to moderate disease in the posterior tibial artery. 3. Totally occluded peroneal artery that was not intervened on due to the fact that the patient has excellent flow down to the foot through the anterior and posterior tibial artery. 4. Patent anterior tibial artery and peroneal artery on the left lower extremity with occluded posterior tibial artery, if patient continues to have nonhealing wound on the left lower extremity I will consider intervention on the posterior tibial artery. 5. Atherosclerotic disease of the abdominal aorta and bifurcation. DISCUSSION AND RECOMMENDATION: Continue maximizing medical therapy. FINAL DIAGNOSES: 1. Nonhealing foot ulcer. 2. Peripheral arterial disease. 3. Hypertension. 4. Hyperlipidemia. Job ID: [id number] DocumentID: [id number] Dictated Date: 02/05/2017 09:47:32 Supervisor Plastics Date: 02/05/2017 10:17:40 Dictated By: KEELEY ROSSI MD
[2017-02-05] MEDS ORDERED: TAMSULOSIN HCL 0.8 MG PO SCH (18:00)
[2017-02-05] MEDS ORDERED: ONDANSETRON 4 MG (ZOFRAN) ORAL DISSOLVE TAB PO PRN (20:00)
[2017-02-05] MEDS ORDERED: warFARin 5 MG (COUMADIN) TAB PO SCH (20:00)
[2017-02-05] MEDS ORDERED: POLYETHYLENE GLYCOL 17 GM (MIRALAX) PACK PO PRN (20:00)
[2017-02-05] MEDS ORDERED: ALFUZOSIN HCL 10 MG TAB (UROXATRAL) PO SCH (20:00)
[2017-02-05] MEDS ORDERED: GABAPENTIN 300 MG (NEURONTIN) CAP PO SCH (21:00)
[2017-02-05] MEDS ORDERED: NON-FORMULARY MEDICATION 1 EA EA (Guaifenesin/Dextromethorphan (Mucinex Dm ER 600-30 mg Ta PO SCH (21:00)
[2017-02-05] MEDS ORDERED: FAMOTIDINE 20 MG (PEPCID) TABLET PO SCH (21:00)
[2017-02-05] MEDS ORDERED: NON-FORMULARY MEDICATION 1 EA EA (Potassium Chloride 40 MEQ) PO SCH (21:00)
[2017-02-05] MEDS ORDERED: guaiFENesin (MUCINEX) 600 MG TAB PO SCH (21:00)
[2017-02-05] MEDS ORDERED: MELATONIN PO SCH (21:00)
[2017-02-05] MEDS ORDERED: CRANBERRY 500 MG PO SCH (21:00)
[2017-02-05] MEDS ORDERED: PYRIDOXINE PO SCH (21:00)
[2017-02-05] MEDS ORDERED: NON-FORMULARY MEDICATION 1 EA EA (Trimethoprim 100 MG) PO SCH (21:00)
[2017-02-05] MEDS ORDERED: MELATONIN 3 MG TABLET PO SCH (21:00)
[2017-02-05] MEDS ORDERED: CARVEDILOL 12.5 MG (COREG) TABLET PO SCH (21:00)
[2017-02-05] MEDS: KCL 20 MEQ TAB (K-DUR) PO SCH (21:23)
[2017-02-05] MEDS: FUROSEMIDE 20 MG (LASIX) TAB PO SCH (21:24)
[2017-02-06] VITALS: BP 127/73
[2017-02-06 04:07] VITALS: BP 122/58
[2017-02-06 04:10] LABS: MEAN PLATELET VOLUME 10.4 FL (7.4-10.4); RED BLOOD COUNT 2.84 10^6/uL (4.35-5.85); RED CELL DISTRIBUTION WIDTH 18.2 % (10.0-14.5); WHITE BLOOD COUNT 10.4 10^3/uL (4.3-11.0)
[2017-02-06 04:24] LABS: CREATININE SERUM 1.24 MG/DL (0.60-1.30); POTASSIUM 3.8 MMOL/L (3.6-5.0)
[2017-02-06] MEDS: KCL 20 MEQ TAB (K-DUR) PO SCH (06:14)
[2017-02-06] MEDS: FUROSEMIDE 20 MG (LASIX) TAB PO SCH (06:14)
[2017-02-06] MEDS ORDERED: MULTIVIT W/MINERALS TAB (THERAGRAN M) PO SCH (07:00)
--- NOTE | 2017-02-06 07:20 | Cardiology Progress Note ---
Subjective Subjective/Events-last exam patient is sitting in bed, feeling well, ate breakfast, denied any chest pain or shortness of breath, no hematoma was noted Review of Systems General: No Chills, No Night Sweats, No Fatigue, No Malaise, No Appetite, No Other HEENT: No Head Aches, No Visual Changes, No Eye Pain, No Ear Pain, No Dysphasia , No Sinus Congestion, No Post Nasal Drip, No Sore Throat, No Other Pulmonary: No Dyspnea, No Cough, No Pleuritic Chest Pain, No Other Cardiovascular: No: Chest Pain, Edema, Lt Headedness, Orthopnea, Other, Palpitations, Paroxysmal Noc. Dyspnea Objective-Cardiology Exam Last Set of Vital Signs Vital Signs 02/06/17 04:07 Temp 98.1 Pulse 76 Resp 16 B/P (MAP) 122/58 Pulse Ox 98 O2 Delivery Nasal Cannula O2 Flow Rate 4.00 Capillary Refill : Less Than 3 Seconds I&O Intake and Output 02/06/17 00:00 Intake Total 1000 ml Balance 1000 ml IV Total 1000 ml General: Alert, Oriented X3, Cooperative HEENT: Atraumatic, PERRLA Neck: Supple, No JVD, No Thyromegaly Lungs: Clear to Auscultation, Normal Air Movement Heart: Regular Rate, Normal S1, Normal S2, No Murmurs Abdomen: Normal Bowel Sounds, Soft, No Tenderness, No Hepatosplenomegaly, No Masses Extremities: No Clubbing, No Cyanosis, No Edema, Normal Pulses, No Tenderness/ Swelling Skin: No Rashes, No Breakdown, No Significant Lesion Neuro: Normal Gait, Normal Speech, Strength at 5/5 X4 Ext, Normal Tone, Sensation Intact Psych/Mental Status: Mental Status NL, Mood NL Results Lab Laboratory Tests 02/05/17 07:30 02/06/17 03:47 A/P-Cardiology Admission Diagnosis peripheral arterial disease Nonhealing foot ulcer Coronary artery disease Hypertension Hyperlipidemia Assessment/Plan peripheral arterial disease, nonhealing wound of the foot, status post balloon angioplasty with good results Coronary artery disease clinically stable continue to monitor Hypertension continue current medication Hyperlipidemia, continue current medication Anemia, anemia of chronic disease, worse with aggressive hydration, patient will be placed on iron supplement KEELEY ROSSI MD February 06, 2017 07:20
[2017-02-06] MEDS ORDERED: IRON-17 PO (07:22)
--- NOTE | 2017-02-06 07:23 | Discharge Inst-Post CATH ---
Discharge Inst-CATH Post Cardiac Cath D/C Inst Follow Up/Plan Appointment with Dr. Niño's office in 2 weeks CARDIAC CATH DISCHARGE INSTRUCTIONS *Hold Metformin for 48 hours post heart cath. ACTIVITY * Go Home directly and rest. * Limit activity of the leg (or wrist if it was used) for 7 days including aerobics, swimming, jogging, bicycling, etc. * Restrict stair-climbing for 7 days if possible, if not, climb up with your non -cath leg, then bring together on the same step. * Avoid lifting, pushing, pulling or excessive movement of the affected extremity for 7 days. * Customary sexual activity may be resumed after 2 days-use caution not to use a position that strains or causes pain to the affected extremity. * No driving for 24 hours. * NO SMOKING. * Avoid straining for bowel movements for 7 days. * Gentle walking on level ground is allowed. * Returning to work will depend on the type of procedure and the results. Your doctor will discuss this with you. CALL YOUR DOCTOR FOR ANY OF THE FOLLOWING: *If bleeding from the puncture site occurs- Apply gentle pressure to site with clean cloth and call your doctor or EMS. * If a knot or lump forms under the skin, increases in size, or causes pain. * If bruising appears to be worsening or moving further down your leg instead of disappearing. * Temperature above 101 F. CARE OF YOUR GROIN INCISION; * Bruising or purple discoloration of the skin near the puncture site is common. * You may shower only, no bathtub bathing for 5 days. Be careful to avoid slipping as your leg may feel stiff. * If a closure device was used on your femoral artery, please see the attached guide regarding care of the device and your leg. * REMOVE the dressing from your groin the next day after your procedure in the shower. CARE OF YOUR WRIST INCISION; * Bruising or purple discoloration of the skin near the puncture site is common. * You may shower. * DO NOT submerge wrist. * Remove dressing in 24 hours. KEELEY NIÑO MD February 06, 2017 07:23
[2017-02-06] MEDS ORDERED: ASCORBIC ACID (VIT C) 500 MG TABLET PO SCH (08:00)
[2017-02-06 08:30] VITALS: BP 123/66
[2017-02-06] MEDS ORDERED: [UNRECOGNIZED DRUG - OTHER] PO SCH (09:00)
[2017-02-06] MEDS ORDERED: ZINC PO SCH (09:00)
[2017-02-06] MEDS ORDERED: DIGOXIN 0.125 MG (LANOXIN) TAB PO SCH (09:00)
[2017-02-06] MEDS ORDERED: LOSARTAN 25 MG (COZAAR) TAB PO SCH (09:00)
[2017-02-06] MEDS ORDERED: NON-FORMULARY MEDICATION 1 EA EA (Ascorbate Calcium (Vitamin C) 500 MG) PO SCH (09:00)
[2017-02-06] MEDS ORDERED: ASPIRIN E.C. 81 MG (ECOTRIN) TAB PO SCH (09:00)
[2017-02-06] MEDS ORDERED: CLOPIDOGREL 75 MG (PLAVIX) TABLET PO SCH (09:00)
[2017-02-06] MEDS ORDERED: warFARin 2.5 MG (COUMADIN) TAB PO SCH (18:00)
== END 2017-02-06 09:25 | disposition home or self-care (01) ==
LOC: CATH 07:15 → ICU 10:05 → CSD 15:55 → CATH 02-06 09:25
PROVIDERS: ATTEND Internal Medicine Cardiovascular Disease
DX: I70.203 Unspecified atherosclerosis of native arteries of extremities, bilateral legs (principal); I70.0 Atherosclerosis of aorta; I70.92 Chronic total occlusion of artery of the extremities; L97.529 Non-pressure chronic ulcer of other part of left foot with unspecified severity; E11.621 Type 2 diabetes mellitus with foot ulcer; I48.2 Chronic atrial fibrillation; I10 Essential (primary) hypertension; E78.5 Hyperlipidemia, unspecified; J44.9 Chronic obstructive pulmonary disease, unspecified; I25.10 Atherosclerotic heart disease of native coronary artery without angina pectoris; E11.40 Type 2 diabetes mellitus with diabetic neuropathy, unspecified; Z79.899 Other long term (current) drug therapy; Z79.4 Long term (current) use of insulin; Z79.01 Long term (current) use of anticoagulants; Z99.81 Dependence on supplemental oxygen; Z98.62 Peripheral vascular angioplasty status
CPT/HCPCS: 36415; 37228; 80048; 80053; 80061; 85027; 85347; 85610; 85730; 87081

== ENCOUNTER → 2017-03-06 | Outpatient (CLI) | payer MEDICARE, BC ==
[~2017-03-06] MED LIST changes: +CLOP75TA69 PO; +IRON-17 PO
[2017-03-06 15:23] LABS: INR 2.7 (0.8-1.4); PROTHROMBIN TIME PATIENT 28.3 SEC (12.2-14.7)
== END ==
LOC: LAB 14:36
PROVIDERS: ATTEND Internal Medicine Cardiovascular Disease
DX: I48.91 Unspecified atrial fibrillation (principal)
CPT/HCPCS: 36415; 85610

== ENCOUNTER 2017-03-17 09:27 | Outpatient (RCR) | payer MEDICARE, BC ==
[~2017-03-17 09:27] MED LIST changes: -GUAI-366 PO; +GUAI-367 PO
[2017-08-20] MEDS ORDERED: KRIL500C PO (09:28)
[2017-08-20] MEDS ORDERED: POTA20TA8 PO (09:28)
[2017-08-20] MEDS ORDERED: CEFD300C3 PO (09:28)
[2017-08-20] MEDS ORDERED: DCL250C PO (09:28)
[2017-08-20] MEDS ORDERED: IRON-17 PO (09:28)
[2017-08-20] MEDS ORDERED: TROS20TA3 PO (09:28)
[2017-08-21] MEDS ORDERED: CLOP75TA28 PO (09:20)
== END 2017-06-11 | disposition home or self-care (01) ==
LOC: LAB 09:27
PROVIDERS: ATTEND Surgery
DX: E11.621 Type 2 diabetes mellitus with foot ulcer (principal); L97.423 Non-pressure chronic ulcer of left heel and midfoot with necrosis of muscle; L97.412 Non-pressure chronic ulcer of right heel and midfoot with fat layer exposed; L97.422 Non-pressure chronic ulcer of left heel and midfoot with fat layer exposed; I70.234 Atherosclerosis of native arteries of right leg with ulceration of heel and midfoot; I70.244 Atherosclerosis of native arteries of left leg with ulceration of heel and midfoot; Z79.899 Other long term (current) drug therapy
CPT/HCPCS: 36415; 80162

== ENCOUNTER 2017-03-22 10:20 | Emergency (ER) | payer MEDICARE, BC ==
[~2017-03-22] VITALS: Ht 172.7 cm; Wt 100.7 kg
[~2017-03-22 10:20] MED LIST changes: +GUAI-366 PO; -GUAI-367 PO
[2017-03-22 11:03] LABS: BILIRUBIN,URINE NEGATIVE (NEGATIVE); KETONES,URINE NEGATIVE (NEGATIVE); LEUKOCYTE ESTERASE ,URINE 2+ (NEGATIVE); NITRITE,URINE NEGATIVE (NEGATIVE); PH,URINE 6 (5-9); PROTEIN,URINE 3+ (NEGATIVE); UROBILINOGEN,URINE NORMAL (NORMAL)
[2017-03-22 11:12] LABS: MEAN PLATELET VOLUME 10.8 FL (7.4-10.4); RED BLOOD COUNT 3.33 10^6/uL (4.35-5.85); WHITE BLOOD COUNT 11.7 10^3/uL (4.3-11.0)
[2017-03-22 11:17] LABS: PROTHROMBIN TIME PATIENT 22.1 SEC (12.2-14.7)
[2017-03-22 11:24] LABS: CALCIUM 9.4 MG/DL (8.5-10.1); CREATININE SERUM 1.65 MG/DL (0.60-1.30); ICTERUS 0.5 (-100-1.9); POTASSIUM 3.8 MMOL/L (3.6-5.0)
[2017-03-22] MEDS ORDERED: NS IV 500 ML 500 ML IV ONE (11:41)
--- NOTE | 2017-03-22 11:41 | ED GU-Male ---
General Chief Complaint: -Male Stated Complaint: BLOOD IN URINE Nursing Triage Note: TO ED PER W/C NOTICED BLOOD IN URINE HAD TURP 2 MONTHS AGO IN [place] Source: patient, old records Exam Limitations: no limitations History of Present Illness Time seen by provider: 10:23 Initial Comments This 81-year-old gentleman presents to the emergency room with gross hematuria that started yesterday. He is presently on warfarin for atrial fibrillation and on aspirin and Plavix for peripheral vascular disease. He reports having a TURP procedure performed in [place] about 2 months ago. Allergies and Home Medications Allergies Coded Allergies: sulfamethoxazole (Verified Allergy, Mild, RASH, 12/26/16) trimethoprim (Verified Allergy, Mild, RASH, 12/26/16) Home Medications Albuterol Sulfate 2.5 Mg/0.5 Ml Vial.neb, 2.5 MG PO Q4H PRN for SHORTNESS OF BREATH, (Reported) Ascorbate Calcium 500 Mg Tablet, 500 MG PO DAILY, (Reported) Aspirin 81 Mg Tablet.dr, 81 MG PO DAILY, (Reported) Carvedilol 12.5 Mg Tablet, 12.5 MG PO BID, (Reported) Clopidogrel Bisulfate 75 Mg Tablet, 75 MG PO DAILY, (Reported) Cranberry 500 Mg Capsule, 500 MG PO BID, (Reported) Digoxin 125 Mcg Tablet, 125 MCG PO DAILY, (Reported) Famotidine 20 Mg Tablet, 20 MG PO BID, (Reported) Furosemide 20 Mg Tablet, 40 MG PO BID, (Reported) TAKES 2 (20 MG) TABLETS Gabapentin 300 Mg Capsule, 300 MG PO BID, (Reported) Guaifenesin/Dextromethorphan 1 Each Tab.er.12h, 1 TAB PO BID, (Reported) Hydrocodone/Acetaminophen 1 Each Tablet, 1 TAB PO Q6H PRN for PAIN-MODERATE, ( Reported) Insulin Lispro 100 Unit/1 Ml Vial, SQ SLIDING/SCALE, (Reported) 141-180 1 UNIT 181-220 2 UNITS 221-280 3 UNITS 281-340 5 UNITS 341- [phone] 8 UNITS Ipratropium/Albuterol Sulfate 3 Ml Ampul.neb, 3 ML NEB Q4H PRN for SHORTNESS OF BREATH, (Reported) Iron Ag,Ps/C/Fa6/B12/Zn/SA/Sto 1 Each Tablet, 1 EACH PO BID, #60 Ref 2 Prescribed by: KEELEY NIÑO on 02/06/17 0722 Losartan Potassium 25 Mg Tablet, 25 MG PO DAILY, (Reported) Melatonin/Pyridoxine 1 Each Tablet, 6 MG PO HS, (Reported) TAKES 2 (3 MG) TABLETS Multivits,Stress Formula/Zinc 1 Each Tablet, 1 TAB PO DAILY, (Reported) Neomycin Teixeira/Bacitrac Zn/Poly 14.2 Gm Oint...g., TP TID, (Reported) APPLIES TO TIP OF PENIS Ondansetron HCl 4 Mg Tablet, 4 MG PO Q6H PRN for NAUSEA/VOMITING, (Reported) Polyethylene Glycol 3350 119 Gm Powder, 17 GM PO DAILY PRN for CONSTIPATION-1ST LINE, (Reported) Potassium Chloride 20 Meq Tablet.er, 40 MEQ PO BID, (Reported) TAKES 2 (20 MEQ) TABLETS Tamsulosin HCl 0.4 Mg Cap, 0.8 MG PO DAILY@1800, (Reported) TAKES 2 (0.4 MG) CAPSULES Trimethoprim 100 Mg Tablet, 100 MG PO HS, (Reported) Warfarin Sodium 2.5 Mg Tablet, 2.5 MG PO SuTuThSa, (Reported) Warfarin Sodium 5 Mg Tablet, 5 MG PO MoWeFr, (Reported) Constitutional: no symptoms reported EENTM: no symptoms reported Respiratory: no symptoms reported Cardiovascular: see HPI Gastrointestinal: no symptoms reported Genitourinary: see HPI Musculoskeletal: no symptoms reported Skin: no symptoms reported Psychiatric/Neurological: No Symptoms Reported Endocrine: No Symptoms Reported Past Iqbtpsd-Wiupxm-Aiicdt Hx Patient Social History Alcohol Use: Past History Recreational Drug Use: No Smoking Status: Former Smoker Type Used: Cigarettes Former Smoker/When Quit: Apr 24, 2005 Recent Foreign Travel: No Contact w/Someone Who Travel: No Recent Infectious Disease Expo: No Recent Hopitalizations: Yes (SEP 2016 PER ) Immunizations Up To Date Tetanus Booster (TDap): Less than 5yrs PED Vaccines UTD: No Date of Pneumonia Vaccine: Aug 28, 2016 Date of Influenza Vaccine: Aug 28, 2016 Seasonal Allergies Seasonal Allergies: No Surgeries HX Surgeries: Yes (CATARACTS, CARPAL TUNNEL, BILAT.THUMBS) Surgeries: Eye Surgery, Orthopedic, Prostatectomy, Tonsillectomy Respiratory Hx Respiratory Disorders: Yes (CPAP AT HS; ACUTE ON CHRONIC RESPIRATORY FAILURE ) Respiratory Disorders: Pneumonia, Sleep Apnea, COPD Cardiovascular Hx Cardiac Disorders: Yes Cardiac Disorders: Atrial Fibrillation (chronic anticoagulation on warfarin), High Cholesterol, Hypertension Neurological Hx Neurological Disorders: Yes (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) Neurological Disorders: Neuropathy Reproductive System Hx Reproductive Disorders: No Sexually Transmitted Disease: No HIV/AIDS: No Genitourinary Hx Genitourinary Disorders: Yes Genitourinary Disorders: Benign Prostatic Hyperpl, Renal Failure, UTI-Chronic Gastrointestinal Hx Gastrointestinal Disorders: Yes Gastrointestinal Disorders: Gastroesophageal Reflux, Chronic Constipation Musculoskeletal Hx Musculoskeletal Disorders: No Endocrine Hx Endocrine Disorders: Yes Endocrine Disorders: Diabetes, Insulin dep HEENT HX ENT Disorders: Yes HEENT Disorders: Cataract, Macular Degeneration Hearing Impairment: Hard of Hearing Cancer Hx Cancer: Yes (BASAL CELL CARCINOMA) Cancer: Skin Psychosocial Hx Psychiatric Problems: No Behavioral Health Disorders: Sleep Difficulties Integumentary HX Skin/Integumentary Disorder: Yes (CELLULITIS IN LEFT KNEE EARLY OCTOBER 2013) Skin/Integumentary Disorders: Recent Skin Changes Blood Transfusions Hx Blood Disorders: No Adverse Reaction to a Blood Tr: No Family Medical History Significant Family History: Cancer Family Medial History: COPD 19 FATHER Colon cancer 19 MOTHER Diabetes mellitus G8 SISTER Drug abuse G8 SISTER Lung cancer 19 FATHER Polio G8 BROTHER Sarcoidosis G8 BROTHER Physical Exam Vital Signs Vital Sign - Last 12Hours 03/22/17 03/22/17 10:20 12:21 Temp 97.2 Pulse 84 Resp 18 B/P (MAP) 130/92 Pulse Ox 97 O2 Delivery Nasal Cannula Capillary Refill : Less Than 3 Seconds General Appearance: WD/WN, no apparent distress HEENT: normal ENT inspection Cardiovascular: no murmur, irregularly irregular Respiratory: lungs clear, normal breath sounds, no respiratory distress, no accessory muscle use Gastrointestinal: normal bowel sounds, non tender, soft, no organomegaly Extremities: swelling, other (chronic wounds on the feet with intact dressing. No blood noted on dressings) Neurologic/Psychiatric: sas analyst II-XII nml as tested, no motor/sensory deficits, alert, normal mood/affect, oriented x 3 Skin: normal color, warm/dry, other (dressed chronic wounds on feet) Date of ETT Placement: Oct 13, 2016 Time of ETT Placement: 2129 Progress/Results/Core Measures Results/Orders Lab Results Laboratory Tests Test 03/22/17 10:50 Range/Units White Blood Count 11.7 H 4.3-11.0 10^3/uL Red Blood Count 3.33 L 4.35-5.85 10^6/uL Hemoglobin 9.9 L 13.3-17.7 G/DL Hematocrit 30 L 40-54 % Mean Corpuscular Volume 90 80-99 FL Mean Corpuscular Hemoglobin 30 25-34 PG Mean Corpuscular Hemoglobin Concent 33 32-36 G/DL Red Cell Distribution Width 16.0 H 10.0-14.5 % Platelet Count 168 130-400 10^3/uL Mean Platelet Volume 10.8 H 7.4-10.4 FL Prothrombin Time 22.1 H 12.2-14.7 SEC INR Comment 2.0 H 0.8-1.4 Urine Color RED H Urine Clarity BLOODY H Urine pH 6 5-9 Urine Specific Branch 1.015 L 1.016-1.022 Urine Protein 3+ H NEGATIVE Urine Glucose (UA) 2+ H NEGATIVE Urine Ketones NEGATIVE NEGATIVE Urine Nitrite NEGATIVE NEGATIVE Urine Bilirubin NEGATIVE NEGATIVE Urine Urobilinogen NORMAL NORMAL MG/DL Urine Leukocyte Esterase 2+ H NEGATIVE Urine RBC (Auto) 5+ H NEGATIVE Urine RBC TNTC H /HPF Urine WBC 5-10 H /HPF Urine Squamous Epithelial Cells NONE /HPF Urine Crystals NONE /LPF Urine Bacteria NEGATIVE /HPF Urine Casts NONE /LPF Urine Mucus NEGATIVE /LPF Urine Culture Indicated YES Sodium Level 137 135-145 MMOL/L Potassium Level 3.8 3.6-5.0 MMOL/L Chloride Level 105 98-107 MMOL/L Carbon Dioxide Level 25 21-32 MMOL/L Anion Gap 7 5-14 MMOL/L Blood Urea Nitrogen 36 H 7-18 MG/DL Creatinine 1.65 H 0.60-1.30 MG/DL Estimat Glomerular Filtration Rate 40 BUN/Creatinine Ratio 22 H 0-20 Glucose Level 174 H 70-105 MG/DL Calcium Level 9.4 8.5-10.1 MG/DL Micro Results Microbiology 03/22/17 Urine Culture - Final, Complete NO GROWTH My Orders Orders - AYALA JOHN MD Ua Culture If Indicated (03/22/17 10:23) Cbc No Diff (03/22/17 10:25) Protime With Inr (03/22/17 10:25) Basic Metabolic Panel (03/22/17 10:31) Saline Lock/Iv-Start (03/22/17 10:50) Urine Culture (03/22/17 10:50) Ns Iv 500 Ml (Sodium Chloride 0.9%) (03/22/17 11:41) Medications Given in ED Vital Signs/I&O Vital Sign - Last 12Hours 03/22/17 03/22/17 10:20 12:21 Temp 97.2 Pulse 84 81 Resp 18 18 B/P (MAP) 130/92 Pulse Ox 97 O2 Delivery Nasal Cannula Blood Pressure Mean: 105 Progress Note : Progress Note Case was reviewed with Dr. Niño. He suggests stopping aspirin and Plavix for now and monitoring for the next couple of days. I agree with this plan. Patient and family were given strict instructions to return if symptoms worsen and to follow-up next week with Dr. Niño. They communicated the patient already has an appointment with Dr. Niño on Friday. Patient received 500 mL of normal saline by IV route because of renal insufficiency. See discharge instructions for discussion with patient. Departure Impression Impression: Primary Impression: Gross hematuria Additional Impressions: Chronic anticoagulation Atrial fibrillation Qualified Codes: I48.2 - Chronic atrial fibrillation Acute renal insufficiency Disposition: HOME, SELF-CARE Condition: Improved Departure-Patient Inst. Decision time for Depature: 11:46 Referrals: RUBEN SANCHEZ MD (PCP/Family) Primary Care Physician Patient Instructions: Blood in the Urine (Hematuria) in Adults, Warfarin Add. Discharge Instructions: Stop aspirin and Plavix (clopidogrel). Continue with Coumadin (warfarin). Keep your appointment with Dr. Niño on Friday and discuss use of these medications. Return to the emergency room if symptoms worsen or you develop problems urinating. Drink plenty of clear liquids. Have Dr. Sanchez or Dr. Niño review the results of your urine culture on Friday. All discharge instructions reviewed with patient and/or family. Voiced understanding. Copy Copies To 1: KEELEY NIÑO MD Copies To 2: RUBEN SANCHEZ MD, JOSHUA T MD Mar 22, 2017 11:41
[2017-03-22 12:21] VITALS: BP 120/74
--- OUTSIDE RECORDS SUMMARY | 2017-03-24 16:53 | XMS REPORT | Continuity of Care Document ---
Author Author [facility] Organization [facility] Address Unknown Phone Unavailable Care Team Providers Care Anodic Treater Name Role Phone Ru Gomez PCP [phone] Source Comments Some departments are not documenting in the electronic medical record. If you do not see the information that you expected, contact Release of Information in the Health Information Management department at [phone] for further assistance in locating additional records.[facility] Active Allergies and Adverse Reactions Allergen [...] for O2 bleed in. Paroxysmal atrial fibrillation ([facility]) 06/30/2015 Overview: 12/02/13: Echo: LA size 5.5cm. EF 60%. Normal left ventricular systolic function. Mild MR, Mild TR. 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
== END 2017-03-22 12:29 | disposition home or self-care (01) ==
LOC: EDUNIT# 10:20 → ER 10:22
DX: R31.0 Gross hematuria (principal); I48.91 Unspecified atrial fibrillation; N28.9 Disorder of kidney and ureter, unspecified; E11.40 Type 2 diabetes mellitus with diabetic neuropathy, unspecified; I73.9 Peripheral vascular disease, unspecified; J44.9 Chronic obstructive pulmonary disease, unspecified; E78.00 Pure hypercholesterolemia, unspecified; I10 Essential (primary) hypertension; Z79.01 Long term (current) use of anticoagulants; Z79.82 Long term (current) use of aspirin; Z79.02 Long term (current) use of antithrombotics/antiplatelets; Z79.4 Long term (current) use of insulin; Z87.891 Personal history of nicotine dependence; Z90.49 Acquired absence of other specified parts of digestive tract
CPT/HCPCS: 36415; 80048; 81000; 85027; 85610; 87088

== ENCOUNTER 2017-04-11 09:00 | Outpatient (RCR) | payer MEDICARE, BC | END 2017-04-13 | disposition home or self-care (01) | LOC: WOUNDCARE 09:00 | PROVIDERS: ATTEND Surgery | DX: E11.621 Type 2 diabetes mellitus with foot ulcer (principal); L97.412 Non-pressure chronic ulcer of right heel and midfoot with fat layer exposed; L97.422 Non-pressure chronic ulcer of left heel and midfoot with fat layer exposed; I70.234 Atherosclerosis of native arteries of right leg with ulceration of heel and midfoot; I70.244 Atherosclerosis of native arteries of left leg with ulceration of heel and midfoot; L97.211 Non-pressure chronic ulcer of right calf limited to breakdown of skin; L97.423 Non-pressure chronic ulcer of left heel and midfoot with necrosis of muscle | CPT/HCPCS: 11042; 11043; 11045; 82962; 87070; 87075; 87077; 87186; 87205; 97597; 97598; 99183; 99211; 99212; 99213; 99214; 99215 ==

== ENCOUNTER → 2017-04-16 | Outpatient (CLI) | payer MEDICARE, BC ==
[2017-04-16 12:31] LABS: BASOPHILS % (AUTO) 0 % (0-10); EOSINOPHILS # (AUTO) 0.1 10^3/uL (0.0-0.3); EOSINOPHILS % (AUTO) 1 % (0-10); LYMPHOCYTES # (AUTO) 1.6 X 10^3 (1.0-4.0); LYMPHOCYTES % (AUTO) 16 % (12-44); MEAN CORPUSCULAR HEMOGLOBIN 30 PG (25-34); MEAN CORPUSCULAR HGB CONC 32 G/DL (32-36); MEAN CORPUSCULAR VOLUME 92 FL (80-99); MEAN PLATELET VOLUME 9.4 FL (7.4-10.4); MONOCYTES # (AUTO) 0.9 X 10^3 (0.0-1.0); MONOCYTES % (AUTO) 9 % (0-12); NEUTROPHILS # (AUTO) 7.2 X 10^3 (1.8-7.8); NEUTROPHILS % (AUTO) 74 % (42-75); PLATELET COUNT 133 10^3/uL (130-400); RED BLOOD COUNT 3.22 10^6/uL (4.35-5.85); RED CELL DISTRIBUTION WIDTH 15.4 % (10.0-14.5); WHITE BLOOD COUNT 9.7 10^3/uL (4.3-11.0)
[2017-04-16 12:38] LABS: BILIRUBIN,URINE NEGATIVE (NEGATIVE); KETONES,URINE NEGATIVE (NEGATIVE); LEUKOCYTE ESTERASE ,URINE 1+ (NEGATIVE); NITRITE,URINE NEGATIVE (NEGATIVE); PH,URINE 6.5 (5-9); PROTEIN,URINE 3+ (NEGATIVE); UROBILINOGEN,URINE NORMAL (NORMAL)
[2017-04-16 13:01] LABS: ALBUMIN 3.2 GM/DL (3.2-4.5); BILIRUBIN,TOTAL 0.9 MG/DL (0.1-1.0); CALCIUM 9.2 MG/DL (8.5-10.1); CREATININE SERUM 1.37 MG/DL (0.60-1.30); MAGNESIUM 2.2 MG/DL (1.8-2.4); POTASSIUM 4.8 MMOL/L (3.6-5.0)
== END ==
LOC: LAB 11:50
PROVIDERS: ATTEND Family Medicine
DX: I12.9 Hypertensive chronic kidney disease with stage 1 through stage 4 chronic kidney disease, or unspecified chronic kidney disease (principal); N18.4 Chronic kidney disease, stage 4 (severe); E11.9 Type 2 diabetes mellitus without complications; R41.9 Unspecified symptoms and signs involving cognitive functions and awareness; E87.6 Hypokalemia; R51 Headache; R53.83 Other fatigue; N39.0 Urinary tract infection, site not specified
CPT/HCPCS: 36415; 80053; 81000; 83735; 85025; 87088

== ENCOUNTER → 2017-04-30 | Outpatient (CLI) | payer MEDICARE, BC | LOC: WOUNDCARE 11:03 | PROVIDERS: ATTEND Surgery | DX: E11.621 Type 2 diabetes mellitus with foot ulcer (principal); L97.423 Non-pressure chronic ulcer of left heel and midfoot with necrosis of muscle; L97.412 Non-pressure chronic ulcer of right heel and midfoot with fat layer exposed; I70.234 Atherosclerosis of native arteries of right leg with ulceration of heel and midfoot; I70.244 Atherosclerosis of native arteries of left leg with ulceration of heel and midfoot ==

== ENCOUNTER → 2017-05-07 | Outpatient (CLI) | payer MEDICARE, BC | LOC: WOUNDCARE 08:57 | PROVIDERS: ATTEND Surgery | DX: E11.621 Type 2 diabetes mellitus with foot ulcer (principal); L97.423 Non-pressure chronic ulcer of left heel and midfoot with necrosis of muscle; L97.412 Non-pressure chronic ulcer of right heel and midfoot with fat layer exposed; I70.234 Atherosclerosis of native arteries of right leg with ulceration of heel and midfoot; I70.244 Atherosclerosis of native arteries of left leg with ulceration of heel and midfoot | CPT/HCPCS: 87070; 87075; 87077; 87186; 87205 ==

== ENCOUNTER → 2017-05-07 | Outpatient (CLI) | payer MEDICARE, BC ==
[2017-05-07 13:05] LABS: BASOPHILS % (AUTO) 0 % (0-10); EOSINOPHILS # (AUTO) 0.1 10^3/uL (0.0-0.3); EOSINOPHILS % (AUTO) 1 % (0-10); LYMPHOCYTES % (AUTO) 12 % (12-44); MEAN CORPUSCULAR HEMOGLOBIN 28 PG (25-34); MEAN CORPUSCULAR HGB CONC 32 G/DL (32-36); MEAN CORPUSCULAR VOLUME 90 FL (80-99); MEAN PLATELET VOLUME 10.1 FL (7.4-10.4); MONOCYTES # (AUTO) 1.1 X 10^3 (0.0-1.0); MONOCYTES % (AUTO) 13 % (0-12); NEUTROPHILS % (AUTO) 74 % (42-75); PLATELET COUNT 168 10^3/uL (130-400); RED BLOOD COUNT 3.21 10^6/uL (4.35-5.85); RED CELL DISTRIBUTION WIDTH 16.5 % (10.0-14.5); WHITE BLOOD COUNT 8.2 10^3/uL (4.3-11.0)
[2017-05-07 13:21] LABS: ALBUMIN 3.1 GM/DL (3.2-4.5); BILIRUBIN,TOTAL 1.2 MG/DL (0.1-1.0); CALCIUM 9.2 MG/DL (8.5-10.1); CREATININE SERUM 1.39 MG/DL (0.60-1.30)
== END ==
LOC: LAB 12:40
PROVIDERS: ATTEND Surgery
DX: E11.621 Type 2 diabetes mellitus with foot ulcer (principal); L97.423 Non-pressure chronic ulcer of left heel and midfoot with necrosis of muscle; L97.412 Non-pressure chronic ulcer of right heel and midfoot with fat layer exposed; I70.234 Atherosclerosis of native arteries of right leg with ulceration of heel and midfoot; I70.244 Atherosclerosis of native arteries of left leg with ulceration of heel and midfoot
CPT/HCPCS: 36415; 80053; 83036; 85025

== ENCOUNTER 2017-05-12 08:52 | Outpatient (RCR) | payer MEDICARE, BC ==
[2017-06-16] MEDS ORDERED: CEPH-507 PO (00:30)
[2017-06-18] MEDS ORDERED: IRON150C3 PO (09:35)
[2017-06-18] MEDS ORDERED: WARF-48 PO (09:38)
[2017-06-18] MEDS ORDERED: TROS60CA4 PO (09:41)
[2017-06-18] MEDS ORDERED: nattokinase PO (09:44)
[2017-06-18] MEDS ORDERED: MAGN500C15 PO (09:45)
[2017-06-18] MEDS ORDERED: LACT1CAP64 PO (09:45)
[2017-06-18] MEDS ORDERED: HYDR-3816 PO (09:46)
[2017-06-18] MEDS ORDERED: HUM100VI15 SQ (09:48)
[2017-06-18] MEDS ORDERED: INSA70301U SQ ×2 (09:50)
[2017-06-19] MEDS ORDERED: CLOP75TA28 PO (08:12)
[2017-06-19] MEDS ORDERED: MERO1PIG IV (09:32)
== END 2017-06-28 | disposition home or self-care (01) ==
LOC: WOUNDCARE 08:52
PROVIDERS: ATTEND Surgery
DX: E11.621 Type 2 diabetes mellitus with foot ulcer (principal); L97.412 Non-pressure chronic ulcer of right heel and midfoot with fat layer exposed; L97.422 Non-pressure chronic ulcer of left heel and midfoot with fat layer exposed; I70.234 Atherosclerosis of native arteries of right leg with ulceration of heel and midfoot; I70.244 Atherosclerosis of native arteries of left leg with ulceration of heel and midfoot
CPT/HCPCS: 11042; 11043; 11045; 15275; 82962; 99183

== ENCOUNTER → 2017-05-14 | Outpatient (CLI) | payer MEDICARE, BC | LOC: WOUNDCARE 08:55 | PROVIDERS: ATTEND Surgery | DX: E11.621 Type 2 diabetes mellitus with foot ulcer (principal); L97.423 Non-pressure chronic ulcer of left heel and midfoot with necrosis of muscle; L97.412 Non-pressure chronic ulcer of right heel and midfoot with fat layer exposed; I70.234 Atherosclerosis of native arteries of right leg with ulceration of heel and midfoot; I70.244 Atherosclerosis of native arteries of left leg with ulceration of heel and midfoot | CPT/HCPCS: 11042 ==

== ENCOUNTER 2017-05-21 11:05 | Outpatient (RCR) | payer MEDICARE, BC ==
[~2017-05-21 11:05] MED LIST changes: -CEPH-507 PO; -DCL250C PO; +GUAI-366 PO; -GUAI-367 PO; -HUM100VI15 SQ; -INSA70301U SQ; -IRON150C3 PO; -KRIL500C PO; -LACT1CAP64 PO; -MAGN500C15 PO; -MERO1PIG IV; -TROS20TA3 PO; -TROS60CA4 PO; -nattokinase PO
[2017-05-21 11:39] LABS: INR 2.3 (0.8-1.4); PROTHROMBIN TIME PATIENT 25.5 SEC (12.2-14.7)
[2017-06-16] MEDS ORDERED: CEPH-507 PO (00:30)
[2017-06-18] MEDS ORDERED: IRON150C3 PO (09:35)
[2017-06-18] MEDS ORDERED: WARF-48 PO (09:38)
[2017-06-18] MEDS ORDERED: TROS60CA4 PO (09:41)
[2017-06-18] MEDS ORDERED: nattokinase PO (09:44)
[2017-06-18] MEDS ORDERED: LACT1CAP64 PO (09:45)
[2017-06-18] MEDS ORDERED: MAGN500C15 PO (09:45)
[2017-06-18] MEDS ORDERED: HYDR-3816 PO (09:46)
[2017-06-18] MEDS ORDERED: HUM100VI15 SQ (09:48)
[2017-06-18] MEDS ORDERED: INSA70301U SQ ×2 (09:50)
[2017-06-19] MEDS ORDERED: CLOP75TA28 PO (08:12)
[2017-06-19] MEDS ORDERED: MERO1PIG IV (09:32)
== END 2017-06-28 | disposition home or self-care (01) ==
LOC: LAB 11:05
PROVIDERS: ATTEND Surgery
DX: E11.621 Type 2 diabetes mellitus with foot ulcer (principal); L97.423 Non-pressure chronic ulcer of left heel and midfoot with necrosis of muscle; L97.412 Non-pressure chronic ulcer of right heel and midfoot with fat layer exposed; I70.234 Atherosclerosis of native arteries of right leg with ulceration of heel and midfoot; I70.244 Atherosclerosis of native arteries of left leg with ulceration of heel and midfoot
CPT/HCPCS: 36415; 85610

== ENCOUNTER → 2017-05-21 | Outpatient (CLI) | payer MEDICARE, BC ==
[~2017-05-21] MED LIST changes: +CEPH-507 PO; +DCL250C PO; -GUAI-366 PO; +GUAI-367 PO; +HUM100VI15 SQ; +INSA70301U SQ; +IRON150C3 PO; +KRIL500C PO; +LACT1CAP64 PO; +MAGN500C15 PO; +MERO1PIG IV; +TROS20TA3 PO; +TROS60CA4 PO; +nattokinase PO
== END ==
LOC: WOUNDCARE 09:19
PROVIDERS: ATTEND Surgery
DX: E11.621 Type 2 diabetes mellitus with foot ulcer (principal); L97.423 Non-pressure chronic ulcer of left heel and midfoot with necrosis of muscle; L97.412 Non-pressure chronic ulcer of right heel and midfoot with fat layer exposed; I70.234 Atherosclerosis of native arteries of right leg with ulceration of heel and midfoot; I70.244 Atherosclerosis of native arteries of left leg with ulceration of heel and midfoot
CPT/HCPCS: 11042; 15275

== ENCOUNTER → 2017-05-28 | Outpatient (CLI) | payer MEDICARE, BC ==
[~2017-05-28] MED LIST changes: +CEPH-507 PO; +DCL250C PO; -GUAI-366 PO; +GUAI-367 PO; +HUM100VI15 SQ; +INSA70301U SQ; +IRON150C3 PO; +KRIL500C PO; +LACT1CAP64 PO; +MAGN500C15 PO; +MERO1PIG IV; +TROS20TA3 PO; +TROS60CA4 PO; +nattokinase PO
== END ==
LOC: WOUNDCARE 08:56
PROVIDERS: ATTEND Surgery
DX: E11.621 Type 2 diabetes mellitus with foot ulcer (principal); L97.412 Non-pressure chronic ulcer of right heel and midfoot with fat layer exposed; L97.423 Non-pressure chronic ulcer of left heel and midfoot with necrosis of muscle; I70.234 Atherosclerosis of native arteries of right leg with ulceration of heel and midfoot; I70.244 Atherosclerosis of native arteries of left leg with ulceration of heel and midfoot
CPT/HCPCS: 11042; 11043

== ENCOUNTER → 2017-05-30 | Outpatient (CLI) | payer MEDICARE, BC ==
[~2017-05-30] MED LIST changes: -CEPH-507 PO; -DCL250C PO; +GUAI-366 PO; -GUAI-367 PO; -HUM100VI15 SQ; -INSA70301U SQ; -IRON150C3 PO; -KRIL500C PO; -LACT1CAP64 PO; -MAGN500C15 PO; -MERO1PIG IV; -TROS20TA3 PO; -TROS60CA4 PO; -nattokinase PO
== END ==
LOC: LAB 08:49
PROVIDERS: ATTEND Surgery
DX: E11.621 Type 2 diabetes mellitus with foot ulcer (principal); L97.423 Non-pressure chronic ulcer of left heel and midfoot with necrosis of muscle; L97.412 Non-pressure chronic ulcer of right heel and midfoot with fat layer exposed; I70.234 Atherosclerosis of native arteries of right leg with ulceration of heel and midfoot; I70.244 Atherosclerosis of native arteries of left leg with ulceration of heel and midfoot
CPT/HCPCS: 36415; 83036

== ENCOUNTER → 2017-06-04 | Outpatient (CLI) | payer MEDICARE, BC ==
[~2017-06-04] MED LIST changes: +CEPH-507 PO; +DCL250C PO; -GUAI-366 PO; +GUAI-367 PO; +HUM100VI15 SQ; +INSA70301U SQ; +IRON150C3 PO; +KRIL500C PO; +LACT1CAP64 PO; +MAGN500C15 PO; +MERO1PIG IV; +TROS20TA3 PO; +TROS60CA4 PO; +nattokinase PO
== END ==
LOC: WOUNDCARE 09:28
PROVIDERS: ATTEND Surgery
DX: E11.621 Type 2 diabetes mellitus with foot ulcer (principal); L97.423 Non-pressure chronic ulcer of left heel and midfoot with necrosis of muscle; L97.412 Non-pressure chronic ulcer of right heel and midfoot with fat layer exposed; I70.234 Atherosclerosis of native arteries of right leg with ulceration of heel and midfoot; I70.244 Atherosclerosis of native arteries of left leg with ulceration of heel and midfoot
CPT/HCPCS: 11042; 87070; 87075; 87205

== ENCOUNTER → 2017-06-11 | Outpatient (CLI) | payer MEDICARE, BC | LOC: WOUNDCARE 08:42 | PROVIDERS: ATTEND Surgery | DX: E11.621 Type 2 diabetes mellitus with foot ulcer (principal); L97.423 Non-pressure chronic ulcer of left heel and midfoot with necrosis of muscle; L97.523 Non-pressure chronic ulcer of other part of left foot with necrosis of muscle; I70.244 Atherosclerosis of native arteries of left leg with ulceration of heel and midfoot | CPT/HCPCS: 11042 ==

== ENCOUNTER 2017-06-15 21:15 | Emergency (ER) | payer MEDICARE, BC ==
[~2017-06-15] VITALS: Ht 172.7 cm; Wt 101.0 kg
[~2017-06-15 21:15] MED LIST changes: -CEPH-507 PO; -DCL250C PO; -HUM100VI15 SQ; -INSA70301U SQ; -IRON150C3 PO; -KRIL500C PO; -LACT1CAP64 PO; -MAGN500C15 PO; -MERO1PIG IV; -TROS20TA3 PO; -TROS60CA4 PO; -nattokinase PO
--- OUTSIDE RECORDS SUMMARY | 2017-06-15 21:22 | XMS REPORT | Clinical Summary ---
Author Author [facility] Organization [facility] Address Unknown Phone Unavailable Care Team Providers Care Acid Pump Operator Name Role Phone PCP Unavailable Source Comments Some departments are not documenting in the electronic medical record. If you do not see the information that you expected, contact Release of Information in the Health Information Management department at [phone] for further assistance in locating additional records.[facility] Allergies Active Allergy Reactions Severity Noted Date Comments Sulfamethoxazole-Trimetho RASH Medium 06/30/2015 prim Current Medications Prescription Sig. Disp. Refills Start [...] mL (0.083 %) needed for Wheezing. nebulizer Indications: CHRONIC solutionIndications: OBSTRUCTIVE PULMONARY CHRONIC OBSTRUCTIVE DISEASE PULMONARY DISEASE ipratropium (ATROVENT) Inhale 2.5 mL by mouth 1 Bottle 11 10/20/19 Active 0.02 % nebulizer twice daily. Indications: 16 solutionIndications: CHRONIC OBSTRUCTIVE CHRONIC OBSTRUCTIVE ASTHMA ASTHMA diltiazem CD (CARDIZEM Take 2 Caps by mouth 60 Cap 11 10/26/19 Active CD) 240 mg daily. 16 capsuleIndications: Paroxysmal atrial fibrillation (HCC), Shortness of breath, Essential hypertension, Coronary artery disease involving [place] coronary artery of [place] heart without angina pectoris aspirin EC 81 mg tablet Take 81 [...] bleed in. Paroxysmal atrial fibrillation ([facility]) 06/30/2015 Overview: 12/02/13: Echo: LA size 5.5cm. EF 60%. Normal left ventricular systolic function. Mild MR, Mild TR. 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 without angina pectoris Diabetic neuropathy (HCC) 06/30/2015 Diabetes mellitus (HCC) 06/30/2015 Shortness of breath 06/30/2015 Last Assessment & Plan: Multifactorial with deconditioning, Afib, VIPIN Fatigue 06/30/2015 Obesity 06/30/2015 Peripheral neuropathy (HCC) 06/30/2015 Family History Relation Name Status Comments Father Mother Social History Tobacco Use Types Packs/Day Years Used Date Former Smoker Cigarettes 2 50 Smokeless Tobacco: Never Used Comments: Quit in 2002 Alcohol Use Drinks/Week oz/Week Comments No Sex Assigned at Date Recorded Not on file Last Filed Vital Signs Vital Sign Reading Time Taken Blood Pressure 154/88 05/31/2016 12:46 PM CDT Pulse 60 05/31/2016 12:46 PM CDT Temperature 36.7 C (98 F) 05/31/2016 12:46 PM CDT Respiratory Rate 20 05/31/2016 12:46 PM CDT Oxygen Saturation 96% 05/31/2016 12:46 PM CDT Inhaled Oxygen - - Concentration Weight 119.9 kg (264 lb 6.4 oz) 05/31/2016 12:46 PM CDT Height 172.7 cm (5' 8") 05/31/2016 12:46 PM CDT Body Mass Index 40.2 05/31/2016 12:46 PM CDT Plan of Treatment Health Maintenance Due Date Last Done Comments PHYSICAL (COMPREHENSIVE) 1943 EXAM PERTUSSIS VACCINE 1947 TETANUS VACCINE 1953 DILATED EYE EXAM 1954 FOOT EXAM 1954 HBA1C 1954 MICROALBUMIN 1954 SHINGLES VACCINE 1996 PREVNAR/PNEUMOVAX (#1) 2001 INFLUENZA VACCINE 06/29/2017 Results Not on filefrom Last 3 Months
--- NOTE | 2017-06-15 21:54 | ED Fall/Injury ---
General Chief Complaint: Trauma-Non Activation Stated Complaint: FALL R HAND INJ LEG INJ Nursing Triage Note: PT BROUGHT TO ROOM BY WHEELCHAIR. PT STATES HE WAS AT HOME AT WAS GOING TO THE BR AND FELT DIZZY AND FELL. PT DENIES HITTING HEAD AND DENIES LOC. FALL HAPPENED AT APPROX. 2100 TODAY. PT HAS A RIGHT MIDDLE FINGER INJURY AND SMALL SKIN TEARS ON HIS RIGHT KNEE. PT DENIES LIST OF COMPLAINTS AT THIS TIME DUE TO DIABETIC NEUROPATHY. Source: patient, family ( and son) Exam Limitations: no limitations History of Present Illness Time seen by provider: 21:49 Initial Comments Patient presents to ER by private conveyance with a chief complaint that he had a fall just prior to arrival landed on his right hand and now has a deformity to his third digit. 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 He says he felt a little lightheaded like she could pass out just prior to the fall. She is been having quite a few falls in the last few months. He denies any dysuria or pain. He has no nausea. Patient denies pain anywhere else. He has no shortness of breath or cough. No diarrhea or dysuria. He says he did not lose consciousness and cannot member. It is had or not. Location Injury Occurred: HOME Allergies and Home Medications Allergies Coded Allergies: sulfamethoxazole (Verified Allergy, Mild, RASH, 12/26/16) trimethoprim (Verified Allergy, Mild, RASH, 12/26/16) Home Medications Albuterol Sulfate 2.5 Mg/0.5 Ml Vial.neb, 2.5 MG PO Q4H PRN for SHORTNESS OF BREATH, (Reported) Ascorbate Calcium 500 Mg Tablet, 500 MG PO DAILY, (Reported) Aspirin 81 Mg Tablet.dr, 81 MG PO DAILY, (Reported) Carvedilol 12.5 Mg Tablet, 12.5 MG PO BID, (Reported) Cephalexin 500 Mg Capsule, 500 MG PO BID for 7 Days, #14 Ref 0 Prescribed by: FARZAD BAE on 06/16/17 0030 Clopidogrel Bisulfate 75 Mg Tablet, 75 MG PO DAILY, (Reported) Cranberry 500 Mg Capsule, 500 MG PO BID, (Reported) Digoxin 125 Mcg Tablet, 125 MCG PO DAILY, (Reported) Famotidine 20 Mg Tablet, 20 MG PO BID, (Reported) Furosemide 20 Mg Tablet, 40 MG PO BID, (Reported) TAKES 2 (20 MG) TABLETS Gabapentin 300 Mg Capsule, 300 MG PO BID, (Reported) Guaifenesin/Dextromethorphan 1 Each Tab.er.12h, 1 TAB PO BID, (Reported) Hydrocodone/Acetaminophen 1 Each Tablet, 1 TAB PO Q6H PRN for PAIN-MODERATE, ( Reported) Insulin Lispro 100 Unit/1 Ml Vial, SQ SLIDING/SCALE, (Reported) 141-180 1 UNIT 181-220 2 UNITS 221-280 3 UNITS 281-340 5 UNITS 341- 400 8 UNITS Ipratropium/Albuterol Sulfate 3 Ml Ampul.neb, 3 ML NEB Q4H PRN for SHORTNESS OF BREATH, (Reported) Iron Ag,Ps/C/Fa6/B12/Zn/SA/Sto 1 Each Tablet, 1 EACH PO BID, #60 Ref 2 Prescribed by: KEELEY ROSSI on 02/06/17 0722 Losartan Potassium 25 Mg Tablet, 25 MG PO DAILY, (Reported) Melatonin/Pyridoxine 1 Each Tablet, 6 MG PO HS, (Reported) TAKES 2 (3 MG) TABLETS Multivits,Stress Formula/Zinc 1 Each Tablet, 1 TAB PO DAILY, (Reported) Neomycin Teixeira/Bacitrac Zn/Poly 14.2 Gm Oint...g., TP TID, (Reported) APPLIES TO TIP OF PENIS Ondansetron HCl 4 Mg Tablet, 4 MG PO Q6H PRN for NAUSEA/VOMITING, (Reported) Polyethylene Glycol 3350 119 Gm Powder, 17 GM PO DAILY PRN for CONSTIPATION-1ST LINE, (Reported) Potassium Chloride 20 Meq Tablet.er, 40 MEQ PO BID, (Reported) TAKES 2 (20 MEQ) TABLETS Tamsulosin HCl 0.4 Mg Cap, 0.8 MG PO DAILY@1800, (Reported) TAKES 2 (0.4 MG) CAPSULES Trimethoprim 100 Mg Tablet, 100 MG PO HS, (Reported) Warfarin Sodium 2.5 Mg Tablet, 2.5 MG PO SuTuThSa, (Reported) Warfarin Sodium 5 Mg Tablet, 5 MG PO MoWeFr, (Reported) Constitutional: No chills, No diaphoresis, No fever, No malaise Eyes: Denies Blindness, Denies Blurred Vision Ears, Nose, Mouth, Throat: denies ear pain, denies ear discharge Respiratory: No cough, No short of breath Cardiovascular: No chest pain, No palpitations Gastrointestinal: No abdominal pain, No constipation, No diarrhea, No nausea, No vomiting Genitourinary: No discharge, No dysuria Musculoskeletal: No back pain, No joint pain Skin: No pruritus, No rash, other (abrasions to right knee new and left knee old) Psychiatric/Neurological: Denies Headache, Denies Numbness, Denies Paresthesia , Pre-Existing Deficit (peripheral neuropathy precludes him having any pain in his lower extremities or upper extremities past the elbow or knees.), Denies Weakness Past Tihvlky-Tcznyo-Nmolwo Hx Patient Social History Alcohol Use: Denies Use Recreational Drug Use: No Smoking Status: Former Smoker Type Used: Cigarettes Former Smoker, Quit: February 05, 2003 2nd Hand Smoke Exposure: No Recent Foreign Travel: No Contact w/Someone Who Travel: No Recent Infectious Disease Expo: No Recent Hopitalizations: Yes (SEP 2016 PER ) Physical Abuse: No Sexual Abuse: No Immunizations Up To Date Tetanus Booster (TDap): Less than 5yrs PED Vaccines UTD: No Date of Pneumonia Vaccine: Aug 28, 2016 Date of Influenza Vaccine: Aug 28, 2016 Seasonal Allergies Seasonal Allergies: No Surgeries History of Surgeries: Yes (CATARACTS, CARPAL TUNNEL, BILAT.THUMBS) Surgeries: Eye Surgery, Orthopedic, Prostatectomy, Tonsillectomy Respiratory History of Respiratory Disorde: Yes (CPAP AT HS; ACUTE ON CHRONIC RESPIRATORY FAILURE) Respiratory Disorders: Pneumonia, Sleep Apnea, COPD Currently Using CPAP: Yes Currently Using BIPAP: No Cardiovascular History of Cardiac Disorders: Yes Cardiac Disorders: Atrial Fibrillation, High Cholesterol, Hypertension Neurological History of Neurological Disord: Yes (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) Neurological Disorders: Neuropathy Reproductive System Hx Reproductive Disorders: No Sexually Transmitted Disease: No HIV/AIDS: No Genitourinary History of Genitourinary Disor: Yes (CHRONIC ADLER/TURP) Genitourinary Disorders: Benign Prostatic Hyperpl, Renal Failure, UTI-Chronic Gastrointestinal History of Gastrointestinal Di: No Gastrointestinal Disorders: Gastroesophageal Reflux, Chronic Constipation Musculoskeletal History of Musculoskeletal Dis: Yes (GENERALIZED WEAKNESS ) Endocrine History of Endocrine Disorders: Yes Endocrine Disorders: Diabetes, Insulin dep HEENT History of HEENT Disorders: Yes HEENT Disorders: Cataract, Macular Degeneration Hearing Impairment: Hard of Hearing Cancer History of Cancer: Yes (BASAL CELL CARCINOMA) Cancer: Skin Did You Recieve Any Treatments: No Psychosocial History of Psychiatric Problem: Yes Behavioral Health Disorders: Sleep Difficulties Suicide Risk Score: 0 Integumentary History of Skin or Integumenta: Yes (CELLULITIS IN LEFT KNEE EARLY OCTOBER 2013) Skin/Integumentary Disorders: Recent Skin Changes Blood Transfusions History of Blood Disorders: No Adverse Reaction to a Blood Tr: No Family Medical History Significant Family History: Cancer Family Medial History: COPD 19 FATHER Colon cancer 19 MOTHER Diabetes mellitus G8 SISTER Drug abuse G8 SISTER Lung cancer 19 FATHER Polio G8 BROTHER Sarcoidosis G8 BROTHER Physical Exam Vital Signs Vital Sign - Last 12Hours 06/15/17 21:27 Temp 97.8 Pulse 81 Resp 20 B/P (MAP) 159/83 Pulse Ox 100 O2 Delivery Nasal Cannula O2 Flow Rate 4.00 Capillary Refill : Less Than 3 Seconds General Appearance: WD/WN, no apparent distress HEENT: PERRL/EOMI, normal ENT inspection, TMs normal, pharynx normal Neck: non-tender, full range of motion, supple, normal inspection Cardiovascular: normal peripheral pulses, regular rate, rhythm, no edema Respiratory: chest non-tender, lungs clear Peripheral Pulses: 2+ Dorsalis Pedis (R), 2+ Left Dors-Pedis (L), 2+ Radial Pulses (R), 2+ Radial Pulses (L) Gastrointestinal: normal bowel sounds, non tender, soft Back: normal inspection, no CVA tenderness, no vertebral tenderness Extremities: normal range of motion, non-tender, normal capillary refill, other (right hand third digit has deformity and is directed medially at the first phalanx) Neurologic/Psychiatric: french folder II-XII nml as tested, alert, normal mood/affect, oriented x 3 Skin: normal color, warm/dry, other (fresh abrasions to the right knee) [place] Coma Score Best Eye Response: (4) Open Spontaneously Best Verbal Response: (5) Oriented Best Motor Response: (6) Obeys Commands [place] Total: 15 Date of ETT Placement: Oct 13, 2016 Time of ETT Placement: 2129 Splinting and Joint Reduction : Location: right hand third digit between the proximal and medial phalanx dislocation Pre-Proc Neuro Vasc Exam: normal Post-Proc Neuro Vasc Exam: normal, unchanged from pre-exam Progress Patient has significant peripheral neuropathy and had no pain while manipulating the joint. We applied gentle traction to the distal and medial phalanx as well as to the elbow and 180 fashion. The joint easily relocated audibly and palpably. The patient had easy full range of motion afterwards with mild ecchymosis and swelling. The patient tolerated the procedure well. Finger was then splinted by rakan taping to the adjoining fingers. Reduction Attempts: 1 Pre-Procedure NV Exam: Yes post joint reduction film: joint reduced Progress/Results/Core Measures Results/Orders Lab Results Laboratory Tests Test 06/15/17 22:19 Range/Units White Blood Count 9.2 4.3-11.0 10^3/uL Red Blood Count 3.31 L 4.35-5.85 10^6/uL Hemoglobin 8.9 L 13.3-17.7 G/DL Hematocrit 28 L 40-54 % Mean Corpuscular Volume 85 80-99 FL Mean Corpuscular Hemoglobin 27 25-34 PG Mean Corpuscular Hemoglobin Concent 32 32-36 G/DL Red Cell Distribution Width 15.5 H 10.0-14.5 % Platelet Count 224 130-400 10^3/uL Mean Platelet Volume 10.4 7.4-10.4 FL Urine Color YELLOW Urine Clarity SLIGHTLY CLOUDY Urine pH 6 5-9 Urine Specific [place] 1.010 L 1.016-1.022 Urine Protein 3+ H NEGATIVE Urine Glucose (UA) NEGATIVE NEGATIVE Urine Ketones NEGATIVE NEGATIVE Urine Nitrite NEGATIVE NEGATIVE Urine Bilirubin NEGATIVE NEGATIVE Urine Urobilinogen NORMAL NORMAL MG/DL Urine Leukocyte Esterase 3+ H NEGATIVE Urine RBC (Auto) 3+ H NEGATIVE Urine RBC 2-5 H /HPF Urine WBC 50-100 H /HPF Urine Crystals NONE /LPF Urine Bacteria LARGE H /HPF Urine Casts NONE /LPF Urine Mucus NEGATIVE /LPF Urine Culture Indicated YES Sodium Level 137 135-145 MMOL/L Potassium Level 4.1 3.6-5.0 MMOL/L Chloride Level 105 98-107 MMOL/L Carbon Dioxide Level 24 21-32 MMOL/L Anion Gap 8 5-14 MMOL/L Blood Urea Nitrogen 27 H 7-18 MG/DL Creatinine 1.56 H 0.60-1.30 MG/DL Estimat Glomerular Filtration Rate 43 BUN/Creatinine Ratio 17 Glucose Level 136 H 70-105 MG/DL Calcium Level 9.1 8.5-10.1 MG/DL My Orders Orders - FARZAD BAE Ua Culture If Indicated (06/15/17 21:51) Ct Head Wo (06/15/17 21:51) Finger(S) (06/15/17 21:51) Knee, Right, 3 Views (06/15/17 21:51) Basic Metabolic Panel (06/15/17 21:54) Cbc No Diff (06/15/17 21:54) Urine Culture (06/15/17 22:19) Finger(S) (06/16/17 00:28) Cephalexin Capsule (Keflex Capsule) (06/16/17 00:45) Medications Given in ED Current Medications Medications Dose Ordered Sig/Nidhi Route Start Time Stop Time Status Last Admin Dose Admin Cephalexin HCl 500 mg ONCE ONCE PO 06/16/17 00:45 06/16/17 00:46 DC 06/16/17 00:51 500 MG Vital Signs/I&O Vital Sign - Last 12Hours 06/15/17 21:27 Temp 97.8 Pulse 81 Resp 20 B/P (MAP) 159/83 Pulse Ox 100 O2 Delivery Nasal Cannula O2 Flow Rate 4.00 Blood Pressure Mean: 108 Diagnostic Imaging Diagonstic Imaging: Xray Plain Films/CT/US/NM/MRI: hand (right) Comments Third digit between the proximal and medial phalanx dislocation without any evidence of fracture. Reviewed: Reviewed by Me Diagonstic Imaging: Xray Plain Films/CT/US/NM/MRI: knee (right) Comments No evidence of acute osseous abnormality. Reviewed: Reviewed by Me Diagonstic Imaging: CT Plain Films/CT/US/NM/MRI: c-spine, head Comments No acute intracranial hemorrhage, skull fracture or other acute intracranial abnormality. There is atrophy and chronic small vessel ischemic disease. Reviewed: Reviewed Night [place] Study, Reviewed by Me Diagonstic Imaging: Xray Plain Films/CT/US/NM/MRI: hand Comments Status post reduction no fracture noted. Reviewed: Reviewed by Me Departure Impression Impression: Primary Impression: UTI (urinary tract infection) Qualified Codes: N30.01 - Acute cystitis with hematuria Additional Impressions: Fall Qualified Codes: W19.XXXA - Unspecified fall, initial encounter Dislocation, finger closed Qualified Codes: S63.259A - Unspecified dislocation of unspecified finger, initial encounter Disposition: HOME, SELF-CARE Condition: Stable Departure-Patient Inst. Decision time for Depature: 00:28 Referrals: RUBEN SANCHEZ MD (PCP/Family) Primary Care Physician Patient Instructions: Urinary Tract Infection, Adult (DC) Add. Discharge Instructions: Drink plenty of fluids. Take the Keflex twice a day by mouth to completion. If you start having worsening symptoms he should follow-up with her primary care physician. Keep your finger taped to the adjoining fingers or obtain a splint for the next 2 weeks. Obtain probiotics and take one capsule twice a day while on antibiotics to try and reduce the risk of loose stools caused by antibiotics. You may also use Ukrainian yogurt or any yogurt with active culture. All discharge instructions reviewed with patient and/or family. Voiced understanding. Scripts Cephalexin (Keflex) 500 Mg Capsule 500 MG PO BID for 7 Days, #14 CAP 0 Refills Prov: FARZAD BAE 06/16/17 Copy Copies To 1: RUBEN SANCHEZ MD, TITUS J Jun 15, 2017 21:54
[2017-06-15 22:36] LABS: MEAN PLATELET VOLUME 10.4 FL (7.4-10.4); RED BLOOD COUNT 3.31 10^6/uL (4.35-5.85); RED CELL DISTRIBUTION WIDTH 15.5 % (10.0-14.5); WHITE BLOOD COUNT 9.2 10^3/uL (4.3-11.0)
[2017-06-15 22:37] LABS: BILIRUBIN,URINE NEGATIVE (NEGATIVE); KETONES,URINE NEGATIVE (NEGATIVE); LEUKOCYTE ESTERASE ,URINE 3+ (NEGATIVE); NITRITE,URINE NEGATIVE (NEGATIVE); PH,URINE 6 (5-9); PROTEIN,URINE 3+ (NEGATIVE); UROBILINOGEN,URINE NORMAL (NORMAL)
[2017-06-15 22:53] LABS: CALCIUM 9.1 MG/DL (8.5-10.1); CREATININE SERUM 1.56 MG/DL (0.60-1.30); POTASSIUM 4.1 MMOL/L (3.6-5.0)
[2017-06-15 23:07] LABS: WBC,URINE 50-100 /HPF
[2017-06-16] MEDS ORDERED: CEPH-507 PO (00:30)
[2017-06-16] MEDS ORDERED: CEPHALEXIN 250 MG (KEFLEX) CAP PO ONE (00:45)
[2017-06-16 01:13] VITALS: BP 152/69
--- NOTE | 2017-06-16 08:04 | Diagnostic Imaging Report ---
PROCEDURE: CT head without contrast. TECHNIQUE: Multiple contiguous axial images were obtained through the brain without the use of intravenous contrast. INDICATION: Injury. FINDINGS: There is no intracranial hemorrhage, edema, or mass effect. There is periventricular and deep white hypodensities compatible with chronic microvascular ischemic changes. No hydrocephalus. No extra-axial fluid collection. The calvarium and orbits appear grossly unremarkable. There is mild opacification in the inferior aspect of the mastoid air cells more on the right side. IMPRESSION: 1. No intracranial hemorrhage. Findings compatible with chronic microvascular ischemic changes in the white matter. 2. Partial opacification of the mastoid air cells could relate to mastoiditis in the appropriate clinical setting. Dictated by: Dictated on workstation # [id number]
--- NOTE | 2017-06-16 08:10 | Diagnostic Imaging Report ---
Three views of the right knee. INDICATION: Injury. FINDINGS: No fracture, dislocation or radiopaque foreign body is seen. No joint effusion is evident. No significant arthritic changes seen. Prominent vascular calcifications noted. IMPRESSION: No acute process. Dictated by: Dictated on workstation # [id number]
--- NOTE | 2017-06-16 08:17 | Diagnostic Imaging Report ---
INDICATION: Post reduction right third finger AP, oblique, and lateral views of the right hand are obtained at 1244 AM and compared to the previous day. There has been successful reduction of the dislocation of the third DIP joint. No associated fracture is seen. There is diffuse degenerative change throughout the interphalangeal joints as well as the first carpal metacarpal joint and radiocarpal joint. There are vascular calcifications noted. IMPRESSION: Successful reduction of previous dislocation of the third PIP joint, with no associated fracture. Dictated by: Dictated on workstation # [id number]
--- NOTE | 2017-06-16 08:29 | Diagnostic Imaging Report ---
INDICATION: Deformity to finger post fall. TECHNIQUE: Three views of the right hand with attention to the middle finger at 10:36 PM. CORRELATION STUDY: None. FINDINGS: There is ulnar and dorsal dislocation of the middle phalanx in relation to the proximal phalanx of the third finger. There is nearly 90 degrees of angulation present as well within a nearly perpendicular orientation. No definitive fracture. The remaining osseous structures demonstrate degenerative changes through the interphalangeal joints but are otherwise intact and normal in alignment. There is rather pronounced vascular calcification. IMPRESSION: Dislocation at the proximal interphalangeal joint of the middle finger with nearly 90 degrees of angulation present. Dictated by: Dictated on workstation # [id number]
[2017-08-20] MEDS ORDERED: TROS20TA3 PO (09:28)
[2017-08-20] MEDS ORDERED: POTA20TA8 PO (09:28)
[2017-08-20] MEDS ORDERED: IRON-17 PO (09:28)
[2017-08-20] MEDS ORDERED: CEFD300C3 PO (09:28)
[2017-08-20] MEDS ORDERED: DCL250C PO (09:28)
[2017-08-20] MEDS ORDERED: KRIL500C PO (09:28)
[2017-08-21] MEDS ORDERED: CLOP75TA28 PO (09:20)
== END 2017-06-16 01:13 | disposition home or self-care (01) ==
LOC: EDUNIT# 21:15 → ER 21:18
DX: S63.252A Unspecified dislocation of right middle finger, initial encounter (principal); N39.0 Urinary tract infection, site not specified; E11.40 Type 2 diabetes mellitus with diabetic neuropathy, unspecified; G47.30 Sleep apnea, unspecified; J44.9 Chronic obstructive pulmonary disease, unspecified; I48.91 Unspecified atrial fibrillation; E78.00 Pure hypercholesterolemia, unspecified; I10 Essential (primary) hypertension; N40.0 Benign prostatic hyperplasia without lower urinary tract symptoms; K21.9 Gastro-esophageal reflux disease without esophagitis; Z96.0 Presence of urogenital implants; Z80.0 Family history of malignant neoplasm of digestive organs; Z80.1 Family history of malignant neoplasm of trachea, bronchus and lung; Z87.440 Personal history of urinary (tract) infections; Z85.828 Personal history of other malignant neoplasm of skin; Z87.09 Personal history of other diseases of the respiratory system; Z90.89 Acquired absence of other organs; Z79.82 Long term (current) use of aspirin; Z79.4 Long term (current) use of insulin; Z79.01 Long term (current) use of anticoagulants; Z87.891 Personal history of nicotine dependence; W18.39XA Other fall on same level, initial encounter
CPT/HCPCS: 36415; 70450; 73140; 73562; 80048; 81000; 85027; 87077; 87088; 87186; 99283

== ENCOUNTER 2017-06-18 08:41 | Day surgery (SDC) | payer MEDICARE, BC ==
[2017-06-18] VITALS (8 sets, daily range): BP systolic 147–169; BP diastolic 71–88
[~2017-06-18] VITALS: Ht 172.7 cm; Wt 100.6 kg
[~2017-06-18 08:41] MED LIST changes: +CEPH-507 PO; +GUAI-366 PO; -GUAI-367 PO
[2017-06-18] MEDS ORDERED: NS IV 1000 ML 1,000 ML ONE ×2 (08:44→11:34)
[2017-06-18] MEDS ORDERED: HEParin (CATH LAB) 2,000 ML IV ONE (08:44)
--- OUTSIDE RECORDS SUMMARY | 2017-06-18 08:46 | XMS REPORT | Clinical Summary ---
Author Author [facility] Organization [facility] Address Unknown Phone Unavailable Care Team Providers Care Semiconductor Processing Technician Name Role Phone PCP Unavailable Source Comments Some departments are not documenting in the electronic medical record. If you do not see the information that you expected, contact Release of Information in the Health Information Management department at [phone] for further assistance in locating additional records.[facility] Allergies Active Allergy Reactions Severity Noted Date [...] breath, Essential hypertension, Coronary artery disease involving [place] coronary artery of [place] heart without angina pectoris aspirin EC 81 [...] bleed in. Paroxysmal atrial fibrillation ([facility]) 06/30/2015 Overview: 12/02/13: Echo: LA size 5.5cm. EF 60%. Normal left ventricular systolic function. Mild MR, Mild TR. Essential hypertension 06/30/2015 COPD (chronic obstructive pulmonary disease) ([facility]) 06/30/2015 Last Assessment & Plan: COPD [...] and Noc ox Coronary artery disease involving [place] coronary artery of [place] heart 10/2014 without angina pectoris Diabetic neuropathy [...]
[2017-06-18] MEDS: NS IV 1000 ML 1,000 ML IV SCH ×4 (09:12→23:30)
[2017-06-18 09:13] LABS: MEAN PLATELET VOLUME 10.1 FL (7.4-10.4); RED BLOOD COUNT 3.48 10^6/uL (4.35-5.85); RED CELL DISTRIBUTION WIDTH 15.2 % (10.0-14.5); WHITE BLOOD COUNT 9.7 10^3/uL (4.3-11.0)
[2017-06-18 09:23] LABS: INR 2.2 (0.8-1.4)
--- NOTE | 2017-06-18 09:29 | Diagnostic Imaging Report ---
INDICATION: Peripheral neuropathy wound, vascular disease. COMPARISON: 01/29/2017 FINDINGS: Old right lateral chest wall deformity chronic. Heart size upper limits but stable. No vascular congestion. No edema, pneumonia, effusion or pneumothorax. IMPRESSION: Chronic findings otherwise negative. Dictated by: Dictated on workstation # [id number]
[2017-06-18 09:30] LABS: ALBUMIN 3.3 GM/DL (3.2-4.5); BILIRUBIN,TOTAL 0.6 MG/DL (0.1-1.0); CALCIUM 9.5 MG/DL (8.5-10.1); CREATININE SERUM 1.49 MG/DL (0.60-1.30); POTASSIUM 4.2 MMOL/L (3.6-5.0); TOTAL PROTEIN 7.7 GM/DL (6.4-8.2)
[2017-06-18] MEDS ORDERED: IRON150C3 PO (09:35)
[2017-06-18] MEDS ORDERED: WARF-48 PO (09:38)
[2017-06-18] MEDS ORDERED: TROS60CA4 PO (09:41)
[2017-06-18] MEDS ORDERED: nattokinase PO (09:44)
[2017-06-18] MEDS ORDERED: MAGN500C15 PO (09:45)
[2017-06-18] MEDS ORDERED: LACT1CAP64 PO (09:45)
[2017-06-18] MEDS ORDERED: HYDR-3816 PO (09:46)
[2017-06-18] MEDS ORDERED: HUM100VI15 SQ (09:48)
[2017-06-18] MEDS ORDERED: INSA70301U SQ ×2 (09:50)
[2017-06-18] MEDS ORDERED: fentaNYL INJECTION 100 MCG/2 ML AMP ONE (11:19)
[2017-06-18] MEDS ORDERED: MIDAZOLAM 5 MG/5 ML (VERSED) VIAL ONE (11:19)
[2017-06-18] MEDS ORDERED: HEParin 1000 UNIT/ML (10ML VIAL) FOR BOLUS ONE (11:20)
[2017-06-18] MEDS: MEROPENEM 1,000 MG in NS (IVPB) 100 ML IV SCH ×2 (11:51→14:18)
[2017-06-18] MEDS ORDERED: MEROPENEM 1,000 MG in NS (IVPB) 100 ML IV NR (12:00)
[2017-06-18] MEDS ORDERED: NITROGLYCERIN DRIP 25 MG/D5W 250 ML IV ONE (12:10)
[2017-06-18] MEDS ORDERED: ASPIRIN 325 MG (5 GR) TABLET ONE (13:26)
[2017-06-18] MEDS ORDERED: CLOPIDOGREL 300 MG (PLAVIX) TABLET PO ONE (13:26)
[2017-06-18] MEDS ORDERED: PATIENT MAY USE OWN MEDS, ALL PO SCH (13:30)
--- NOTE | 2017-06-18 13:39 | Cardiac Cath Report ---
Cardiac Cath Report Physician (s)/Information Services Manager (s) Physician KEELEY ROSSI MD Pre-Procedure Diagnosis Pre-Procedure Diagnosis: peripheral arterial disease, nonhealing foot ulcer Post-Procedure Note Procedure Start Date: Jun 18, 2017 Procedure Start Time: 13:31 Name of Procedure: Abdominal aortogram Bilateral lower extremity runoff Balloon angioplasty to the left anterior tibial artery Balloon angioplasty to the left posterior tibial artery Additional review Third order Findings/Procedure Note PROCEDURE NOTE: After explaining the procedure to the patient, all pros and cons were explained, all questions were answered. The patient signed the consent and then she was placed on the cardiac catheterization laboratory. The patient was placed on the cardiac catheterization laboratory. Groin was prepped SL fashion local anesthesia was used. Sheath placed in the artery. I advanced the pigtail catheter and crossed over to the left side then placed a straight catheter. Runoff to the left lower except he was done. Patient was given 5000 units of heparin then I exchanged the sheath initially 27 Amharic sheath international units 65 cm then 45 cm, advanced to straight catheter down to the popliteal artery then the tibial perineal trunk angiogram at multiple sections were made then patient was noted to have total occlusion of the anterior tibial artery advanced command wire then fitted balloon angioplasty using 2.5200 mm balloon at multiple inflation with excellent results. Patient had total occlusion of the posterior tibial artery and attempted multiple times to cross the lesion without success, I changed to command wire into T200 wire, cross the lesion advanced 2.0 balloon and inflated post inflation there was a perforation in the balloon with extravasation of the contrast. I removed the balloon and placed 3.0 balloon and inflated for 5 minutes repeat angiogram showed no contrast leak. During the procedure I advanced a straight catheter to the posterior tibial artery and selective injection in the posterior tibial artery was made. At the end of the procedure the sheath was pulled out and exchanging to short 7 Amharic sheath then I advanced a pigtail Catheter to the abdominal aorta and abdominal aortogram was done. Then runoff to the right lower extremity at multiple segments with injection through the sheath was made. At the end of the procedure sheath was removed with closure device deployed no complication noted FINDINGS: 1. Abdominal aortogram showed mild bilateral disease in the distal abdominal aorta and bifurcation nonobstructive disease no aneurysm or dissection. 2. Left lower extremity runoff showed moderate disease in the SFA at multiple segment, total occlusion of the anterior and posterior tibial artery, balloon angioplasty to the anterior tibial artery with 2.5200 mm balloon with excellent results down to the ankle. The posterior tibial artery had total occlusion small artery successful crossing the lesion but complicated by small perforation which was healed with balloon inflation of 30 mm. At the end of the procedure complication noted. 3. Right lower except he runoff showed moderate disease in the SFA, severe disease below the knee with subtotal occlusion of the tibial peroneal trunk, severe disease at the anterior tibial artery at multiple segment. Which will be intervened on at a later point CONCLUSION: 1. Total occlusion of the left anterior tibial artery was successful balloon angioplasty using 2.5200 balloon with excellent results at multiple inflation 2. Total occlusion of the left posterior tibial artery, unsuccessful attempt for intervention 3. Mild to moderate disease at the left SFA which will be monitored closely. 4. Mild to moderate disease at the right SFA, severe disease below the knee with subtotal occlusion of the tibioperoneal trunk and anterior tibial artery which will be intervened on at a later point 4. Mild disease in the abdominal aorta and the bifurcation. DISCUSSION AND RECOMMENDATION: I will continue maximizing medical therapy at this point Anesthesia Type: Conscious Sedation Estimated blood loss (mL): 25 ml Contrast Amount: 70 ml Total Radiation Dose: 173 mGy Post-Procedure Diagnosis Post-operative diagnosis: Nonhealing foot ulcer Peripheral retinal disease Coronary artery disease Hypertension KEELEY ROSSI MD Jun 18, 2017 13:39
[2017-06-18] MEDS: KCL 20 MEQ TAB (K-DUR) PO SCH (17:22)
[2017-06-18] MEDS: FUROSEMIDE 20 MG (LASIX) TAB PO SCH (17:23)
[2017-06-18] MEDS: MEROPENEM 500 MG/NS 100 ML IVPB IV SCH ×2 (17:45)
--- NOTE | 2017-06-18 19:17 | Consultation ---
History of Present Illness History of Present Illness Patient Consulted On(maria t/time) 06/18/17 19:12 Date Seen by Provider: Jun 18, 2017 Time Seen by Provider: 19:00 Reason for Visit: same day surgery admit for catheterization of lower extremities History of Present Illness 81 yo M seen today by Dr. Niño for catheterization of his lower extremities- regarding peripheral vascular disease. Procedure went well- The left anterior tibial artery was opened up but the left posterior tibial artery was unsuccessful. Pt went to the ER on 06/15/2017 for a fall- found to have a dislocated finger that was put back into place and ESBL urinary tract infection grew on urine culture. He will be started on meropenem, renally adjusted. Pt denies dysuria but does have frequency- he denies fever. He has had history of UTIs, usually due to retention. Pt is urinating without a adler. Pt has ambulated post-cath. He has no new complaints or concerns right now. Denies any respiratory changes- on his home oxygen of 2L- COPD doing well- He does have a cough that he has been dealing with for quite a while. Goal to discharge to home tomorrow. I was consulted as his PCP for chronic kidney disease stage III and UTI due to ESBL. Allergies and Home Medications Allergies Coded Allergies: sulfamethoxazole (Verified Allergy, Mild, RASH, 12/26/16) trimethoprim (Verified Allergy, Mild, RASH, 12/26/16) Home Medications Aspirin 81 Mg Tablet.dr, 81 MG PO DAILY, (Reported) Carvedilol 12.5 Mg Tablet, 12.5 MG PO BID, (Reported) Cephalexin 500 Mg Capsule, 500 MG PO BID for 7 Days, #14 Ref 0 Prescribed by: FARZAD BAE on 06/16/17 0030 Clopidogrel Bisulfate 75 Mg Tablet, 75 MG PO DAILY, #30 Ref 1 Prescribed by: KEELEY NIÑO on 06/19/17 0812 Digoxin 125 Mcg Tablet, 125 MCG PO DAILY, (Reported) Famotidine 20 Mg Tablet, 20 MG PO BID, (Reported) Furosemide 20 Mg Tablet, 40 MG PO BID, (Reported) TAKES 2 (20 MG) TABLETS Gabapentin 300 Mg Capsule, 300 MG PO BID, (Reported) Hydrocodone/Acetaminophen 1 Each Tablet, 1 EACH PO Q8H PRN for PAIN-MILD TO MODERATE, (Reported) Insuln Asp Prt/Insulin Aspart 1 Unit/0.01 Ml Susp, 25 UNIT SQ early afternoon, ( Reported) Insuln Asp Prt/Insulin Aspart 1 Unit/0.01 Ml Susp, 27-32 UNIT SQ HS, (Reported) Iron Polysaccharide Complex 150 Mg Capsule, 150 MG PO BID, (Reported) Lactobacillus Combo No.11 1 Each Cap.sprink, 1 EACH PO DAILY, (Reported) Losartan Potassium 25 Mg Tablet, 25 MG PO DAILY, (Reported) Magnesium Oxide 500 Mg Capsule, 500 MG PO DAILY, (Reported) Meropenem-0.9% Sodium Chloride 1 Gm/50 Ml Piggyback, 1 GM IV Q12HR for [address] [facility] to start 06/20/2017 end date: 06/25/2017 Prescribed by: RUBEN SANCHEZ on 06/19/17 0932 Potassium Chloride 20 Meq Tablet.er, 40 MEQ PO BID, (Reported) TAKES 2 (20 MEQ) TABLETS Trospium Chloride 60 Mg Cap.er.24h, 60 MG PO DAILY, (Reported) Warfarin Sodium 5 Mg Tablet, 5 MG PO HS, (Reported) [nattokinase] , 2,000 PO DAILY, (Reported) Past [place]me[place]-X[place] Hx Patient Social History Smoking Status: Former Smoker Type Used: Cigarettes Former Smoker, Quit: Jun 18, 2004 2nd Hand Smoke Exposure: No Recent Foreign Travel: No Contact w/Someone Who Travel: No Recent Infectious Disease Expo: No Recent Hopitalizations: Yes (SEP 2016 PER ) Immunizations Up To Date Tetanus Booster (TDap): Less than 5yrs PED Vaccines UTD: No Date of Pneumonia Vaccine: Aug 28, 2016 Date of Influenza Vaccine: Aug 28, 2016 Seasonal Allergies Seasonal Allergies: No Surgeries History of Surgeries: Yes (CATARACTS, CARPAL TUNNEL, BILAT.THUMBS) Surgeries: Eye Surgery, Orthopedic, Prostatectomy, Tonsillectomy Respiratory History of Respiratory Disorde: Yes (CPAP AT HS; ACUTE ON CHRONIC RESPIRATORY FAILURE) Respiratory Disorders: Pneumonia, Sleep Apnea, COPD Currently Using CPAP: Yes Currently Using BIPAP: No Cardiovascular History of Cardiac Disorders: Yes Cardiac Disorders: Atrial Fibrillation, High Cholesterol, Hypertension Neurological History of Neurological Disord: Yes (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) Neurological Disorders: Neuropathy Reproductive System Hx Reproductive Disorders: No Sexually Transmitted Disease: No HIV/AIDS: No Genitourinary History of Genitourinary Disor: Yes (CHRONIC ADLER/TURP) Genitourinary Disorders: Benign Prostatic Hyperpl, Renal Failure, UTI-Chronic Gastrointestinal History of Gastrointestinal Di: No Gastrointestinal Disorders: Gastroesophageal Reflux, Chronic Constipation Musculoskeletal History of Musculoskeletal Dis: Yes (GENERALIZED WEAKNESS ) Endocrine History of Endocrine Disorders: Yes Endocrine Disorders: Diabetes, Insulin dep HEENT History of HEENT Disorders: Yes HEENT Disorders: Cataract, Macular Degeneration Hearing Impairment: Hard of Hearing Cancer History of Cancer: Yes (BASAL CELL CARCINOMA) Cancer: Skin Did You Recieve Any Treatments: No Psychosocial History of Psychiatric Problem: Yes Behavioral Health Disorders: Sleep Difficulties Integumentary History of Skin or Integumenta: Yes (CELLULITIS IN LEFT KNEE EARLY OCTOBER 2013) Skin/Integumentary Disorders: Recent Skin Changes Blood Transfusions History of Blood Disorders: No Adverse Reaction to a Blood Tr: No Family Medical History Significant Family History: Cancer Family Medial History: COPD 19 FATHER Colon cancer 19 MOTHER Diabetes mellitus G8 SISTER Drug abuse G8 SISTER Lung cancer 19 FATHER Polio G8 BROTHER Sarcoidosis G8 BROTHER Review of Systems Review of Systems General: No Chills, No Night Sweats HEENT: No Head Aches, No Visual Changes Pulmonary: No Dyspnea, Cough Cardiovascular: No: Chest Pain, Palpitations, Orthopnea Gastrointestinal: No: Nausea, Vomiting, Abdominal Pain Genitourinary: No Dysuria, Frequency Musculoskeletal: No: neck pain, shoulder pain Neurological: Weakness, No: Numbness Physical Exam Vital Signs Vital Sign - Last 12Hours 06/18/17 10:24 Temp 97.8 Pulse 62 Resp 16 B/P (MAP) 151/76 Pulse Ox 100 O2 Delivery Nasal Cannula O2 Flow Rate 4.00 Capillary Refill : Less Than 3 Seconds General Appearance: No Apparent Distress, WD/WN HEENT: PERRL/EOMI Neck: Non Tender, Supple Respiratory: Chest Non Tender, Lungs Clear, Normal Breath Sounds Cardiovascular: Other (atrial fibrillation) Gastrointestinal: Non Tender, Soft Rectal: Deferred Extremity: Non Tender Neurologic/Psychiatric: Alert, Oriented x3, Normal Mood/Affect Skin: Normal Color, Warm/Dry Assessment/Plan Assessment/Plan Assessment/Plan 81 yo M Urinary tract infection due to ESBL- contact precautions- meropenem 500mg q6hr while in hospital- then will change to 1g q12hr x 7 days- IV abx set up with Zafin- renally adjusted for CrCl 45, eGFR 45 chronic kidney disease III- IVF- avoid unnecessary nephrotoxic agents- monitor Cr, eGFR, CrCl permanent atrial fibrillation- Dr. Niño monitoring INR, on warfarin HTN- monitor bp, continue home meds Peripheral vascular disease- s/p catherization chronic venous insufficiency- monitor HLD- monitor DMII- starting SSI, achs accuchecks COPD- on 2L oxygen- stable Dispo: will treat ESBL with meropenem- I have arranged [facility] to continue meropenem at home on discharge. will repeat BMP. Problems: RUBEN SANCHEZ MD Jun 18, 2017 19:17
[2017-06-18] MEDS ORDERED: warFARin 5 MG (COUMADIN) TAB PO SCH (21:00)
[2017-06-18] MEDS: CARVEDILOL 12.5 MG (COREG) TABLET PO SCH (21:01)
[2017-06-18] MEDS: FAMOTIDINE 20 MG (PEPCID) TABLET PO SCH (21:02)
[2017-06-18] MEDS: GABAPENTIN 300 MG (NEURONTIN) CAP PO SCH (21:03)
[2017-06-18] MEDS: inSUlin ASPART (NovoLOG) 1 UNIT/0.01 ML (CHARGE PER UNIT) SC SCH (22:25)
[2017-06-19] VITALS: BP 160/85
[2017-06-19] MEDS: MEROPENEM 500 MG/NS 100 ML IVPB IV SCH ×4 (00:03→06:44)
[2017-06-19 04:00] VITALS: BP 153/86
[2017-06-19 05:02] LABS: MEAN PLATELET VOLUME 10.5 FL (7.4-10.4); RED BLOOD COUNT 3.12 10^6/uL (4.35-5.85); WHITE BLOOD COUNT 7.1 10^3/uL (4.3-11.0)
[2017-06-19 05:21] LABS: CALCIUM 8.7 MG/DL (8.5-10.1); CREATININE SERUM 1.18 MG/DL (0.60-1.30); POTASSIUM 3.6 MMOL/L (3.6-5.0)
[2017-06-19] MEDS: inSUlin ASPART (NovoLOG) 1 UNIT/0.01 ML (CHARGE PER UNIT) SC SCH (06:00)
[2017-06-19] MEDS: FUROSEMIDE 20 MG (LASIX) TAB PO SCH (07:38)
[2017-06-19] MEDS: KCL 20 MEQ TAB (K-DUR) PO SCH (07:38)
[2017-06-19] MEDS: CARVEDILOL 12.5 MG (COREG) TABLET PO SCH (07:39)
[2017-06-19] MEDS: GABAPENTIN 300 MG (NEURONTIN) CAP PO SCH (07:40)
[2017-06-19] MEDS: FAMOTIDINE 20 MG (PEPCID) TABLET PO SCH (07:40)
[2017-06-19] MEDS: NS IV 1000 ML 1,000 ML IV SCH (07:40)
--- NOTE | 2017-06-19 08:09 | Cardiology Progress Note ---
Subjective Date Seen by Provider: Jun 19, 2017 Time Seen by Provider: 08:05 Subjective/Events-last exam patient is sitting in a chair, feeling well, groin is healing well. Denied any chest pain. Leg wound is wrapped Review of Systems General: No Chills, No Night Sweats, No Fatigue, No Malaise, No Appetite, No Other HEENT: No Head Aches, No Visual Changes, No Eye Pain, No Ear Pain, No Dysphasia , No Sinus Congestion, No Post Nasal Drip, No Sore Throat, No Other Pulmonary: No Dyspnea, No Cough, No Pleuritic Chest Pain, No Other Cardiovascular: No: Chest Pain, Palpitations, Orthopnea, Paroxysmal Noc. Dyspnea, Edema, Lt Headedness, Other Objective-Cardiology Exam Last Set of Vital Signs Vital Signs 06/19/17 04:00 Temp 98.2 Pulse 73 Resp 24 B/P (MAP) 153/86 Pulse Ox 96 O2 Delivery Nasal Cannula O2 Flow Rate 2.00 Capillary Refill : Less Than 3 Seconds I&O Intake and Output 06/20/17 00:00 Intake Total 245 ml Balance 245 ml Intake Oral 150 ml IV Total 95 ml # Voids 2 # Bowel Movements 1 General: Alert, Oriented X3, Cooperative HEENT: Atraumatic, PERRLA Neck: Supple, No JVD, No Thyromegaly Lungs: Clear to Auscultation, Normal Air Movement Heart: Regular Rate, Normal S1, Normal S2, No Murmurs Abdomen: Normal Bowel Sounds, Soft, No Tenderness, No Hepatosplenomegaly, No Masses Extremities: No Clubbing, No Cyanosis, No Edema, Normal Pulses, No Tenderness/ Swelling Skin: No Rashes, Other (2 small ulcers on the heel of the left foot) Neuro: Normal Speech, Normal Tone Psych/Mental Status: Mental Status NL, Mood NL Results Lab Laboratory Tests 06/18/17 09:08 06/19/17 04:26 A/P-Cardiology Admission Diagnosis Peripheral arterial disease Coronary artery disease Urinary tract infection Chronic renal insufficiency Assessment/Plan Peripheral arterial disease, extensive disease, angiogram was done yesterday. 1. Total occlusion of the left anterior tibial artery was successful balloon angioplasty using 2.5200 balloon with excellent results at multiple inflation 2. Total occlusion of the left posterior tibial artery, unsuccessful attempt for intervention, I will consider intervention with pedal access if the ulcer did not heal 3. Mild to moderate disease at the left SFA which will be monitored closely. 4. Mild to moderate disease at the right SFA, severe disease below the knee with subtotal occlusion of the tibioperoneal trunk and anterior tibial artery which will be intervened on at a later point if patient became symptomatic 4. Mild disease in the abdominal aorta and the bifurcation. Coronary artery disease, clinically stable, asymptomatic at this time. Continue to monitor Hypertension, controlled, continue on current medication monitor Hyperlipidemia, continue on current medications and monitor Diabetes mellitus, followed and managed by primary care physician Chronic renal insufficiency, renal function are better on IV fluid. Received 70 mL of contrast. Continue to monitor closely. Next Urinary tract infection, started on meropenem. Managed by primary care physician KEELEY ROSSI MD Jun 19, 2017 08:09
[2017-06-19] MEDS ORDERED: CLOP75TA28 PO (08:12)
--- NOTE | 2017-06-19 08:13 | Discharge Inst-Post CATH ---
Discharge Inst-CATH Post Cardiac Cath D/C Inst Follow Up/Plan Appointment with Dr. Niño's office next week CARDIAC CATH DISCHARGE INSTRUCTIONS *Hold Metformin for 48 hours post heart cath. ACTIVITY * Go Home directly and rest. * Limit activity of the leg (or wrist if it was used) for 7 days including aerobics, swimming, jogging, bicycling, etc. * Restrict stair-climbing for 7 days if possible, if not, climb up with your non -cath leg, then bring together on the same step. * Avoid lifting, pushing, pulling or excessive movement of the affected extremity for 7 days. * Customary sexual activity may be resumed after 2 days-use caution not to use a position that strains or causes pain to the affected extremity. * No driving for 24 hours. * NO SMOKING. * Avoid straining for bowel movements for 7 days. * Gentle walking on level ground is allowed. * Returning to work will depend on the type of procedure and the results. Your doctor will discuss this with you. CALL YOUR DOCTOR FOR ANY OF THE FOLLOWING: *If bleeding from the puncture site occurs- Apply gentle pressure to site with clean cloth and call your doctor or EMS. * If a knot or lump forms under the skin, increases in size, or causes pain. * If bruising appears to be worsening or moving further down your leg instead of disappearing. * Temperature above 101 F. CARE OF YOUR GROIN INCISION; * Bruising or purple discoloration of the skin near the puncture site is common. * You may shower only, no bathtub bathing for 5 days. Be careful to avoid slipping as your leg may feel stiff. * If a closure device was used on your femoral artery, please see the attached guide regarding care of the device and your leg. * REMOVE the dressing from your groin the next day after your procedure in the shower. CARE OF YOUR WRIST INCISION; * Bruising or purple discoloration of the skin near the puncture site is common. * You may shower. * DO NOT submerge wrist. * Remove dressing in 24 hours. KEELEY NIÑO MD Jun 19, 2017 08:13
[2017-06-19] MEDS ORDERED: ASPIRIN E.C. 81 MG (ECOTRIN) TAB PO SCH ×2 (09:00)
[2017-06-19] MEDS ORDERED: CLOPIDOGREL 75 MG (PLAVIX) TABLET PO SCH (09:00)
[2017-06-19] MEDS ORDERED: DIGOXIN 0.125 MG (LANOXIN) TAB PO SCH (09:00)
[2017-06-19] MEDS ORDERED: LOSARTAN 25 MG (COZAAR) TAB PO SCH (09:00)
[2017-06-19] MEDS ORDERED: MERO1PIG IV (09:32)
== END 2017-06-19 11:20 | disposition home or self-care (01) ==
LOC: CATH 08:41 → ICU 14:14 → CATH 14:14 → ICU 06-19 01:31 → CATH 06-19 11:20
PROVIDERS: ATTEND Internal Medicine Cardiovascular Disease
DX: I70.293 Other atherosclerosis of native arteries of extremities, bilateral legs (principal); I70.92 Chronic total occlusion of artery of the extremities; I48.2 Chronic atrial fibrillation; J44.9 Chronic obstructive pulmonary disease, unspecified; E78.5 Hyperlipidemia, unspecified; I87.2 Venous insufficiency (chronic) (peripheral); E11.40 Type 2 diabetes mellitus with diabetic neuropathy, unspecified; I50.32 Chronic diastolic (congestive) heart failure; Z99.81 Dependence on supplemental oxygen; Z95.820 Peripheral vascular angioplasty status with implants and grafts; Z79.01 Long term (current) use of anticoagulants; Z79.899 Other long term (current) drug therapy; Z79.4 Long term (current) use of insulin
CPT/HCPCS: 36247; 36415; 37228; 37232; 71010; 75625; 75716; 75774; 80048; 80053; 80061; 82962; 85027; 85347; 85610; 85730; 87081; 93005

== ENCOUNTER → 2017-06-25 | Outpatient (CLI) | payer MEDICARE, BC ==
[~2017-06-25] MED LIST changes: +HUM100VI15 SQ; +INSA70301U SQ; +IRON150C3 PO; +LACT1CAP64 PO; +MAGN500C15 PO; +MERO1PIG IV; +TROS60CA4 PO; +nattokinase PO
== END ==
LOC: WOUNDCARE 08:52
PROVIDERS: ATTEND Surgery
DX: E11.621 Type 2 diabetes mellitus with foot ulcer (principal); L97.423 Non-pressure chronic ulcer of left heel and midfoot with necrosis of muscle; L97.523 Non-pressure chronic ulcer of other part of left foot with necrosis of muscle; I70.244 Atherosclerosis of native arteries of left leg with ulceration of heel and midfoot
CPT/HCPCS: 11042

== ENCOUNTER → 2017-07-02 | Outpatient (CLI) | payer MEDICARE, BC | LOC: WOUNDCARE 09:09 | PROVIDERS: ATTEND Surgery | DX: E11.621 Type 2 diabetes mellitus with foot ulcer (principal); I70.244 Atherosclerosis of native arteries of left leg with ulceration of heel and midfoot; L97.422 Non-pressure chronic ulcer of left heel and midfoot with fat layer exposed; L97.522 Non-pressure chronic ulcer of other part of left foot with fat layer exposed | CPT/HCPCS: 11042; 87070; 87075; 87205 ==

== ENCOUNTER → 2017-07-16 | Outpatient (CLI) | payer MEDICARE, BC | LOC: WOUNDCARE 09:07 | PROVIDERS: ATTEND Surgery | DX: E11.621 Type 2 diabetes mellitus with foot ulcer (principal); L97.422 Non-pressure chronic ulcer of left heel and midfoot with fat layer exposed; L97.522 Non-pressure chronic ulcer of other part of left foot with fat layer exposed; I70.244 Atherosclerosis of native arteries of left leg with ulceration of heel and midfoot | CPT/HCPCS: 11042 ==

== ENCOUNTER → 2017-07-23 | Outpatient (CLI) | payer MEDICARE, BC | LOC: WOUNDCARE 08:53 | PROVIDERS: ATTEND Surgery | DX: E11.621 Type 2 diabetes mellitus with foot ulcer (principal); L97.422 Non-pressure chronic ulcer of left heel and midfoot with fat layer exposed; L97.522 Non-pressure chronic ulcer of other part of left foot with fat layer exposed; I70.244 Atherosclerosis of native arteries of left leg with ulceration of heel and midfoot | CPT/HCPCS: 11042 ==

== ENCOUNTER → 2017-07-30 | Outpatient (CLI) | payer MEDICARE, BC ==
--- NOTE | 2017-07-30 15:42 | Diagnostic Imaging Report ---
EXAMINATION: Scrotal ultrasound. INDICATION: Left scrotal pain. FINDINGS: The right testicle is 4.6 x 2.5 x 3 cm. The left testicle is 4.5 x 1.7 x 3.1 cm. Both testicles demonstrate fairly homogeneous parenchyma. Arterial and venous waveforms are demonstrated over both testicles. There is a complex lesion measuring 5.4 x 4.3 x 4.7 cm in the left scrotum above and lateral to the left testicle. There does not demonstrate internal vascularity and has increased through transmission. This may relate to a hematoma. There is a small to moderate simple appearing hydrocele on the right side. There are elongated oval circumscribed hypoechoic areas measuring up to 7 mm in size. These appear to be surrounded by fluid and not necessarily attached to the testicle. The etiology is uncertain and this could be related to debris in the hydrocele from prior hemorrhage, trauma, or infection. IMPRESSION: 1. A complex lesion above the left testicle measuring 5.4 cm in size is favored to be a hematoma. 2. Small to moderate right-sided hydrocele. Within the hydrocele, there are oval circumscribed bodies up to 7 mm in size which may relate to debris from prior hemorrhage, infection, or injury. Dictated by: Dictated on workstation # [id number]
== END ==
LOC: RAD 12:19
PROVIDERS: ATTEND Specialist
DX: N43.3 Hydrocele, unspecified (principal); S30.22XA Contusion of scrotum and testes, initial encounter; X58.XXXA Exposure to other specified factors, initial encounter; Y99.8 Other external cause status
CPT/HCPCS: 76870

== ENCOUNTER → 2017-07-30 | Outpatient (CLI) | payer MEDICARE, BC | LOC: WOUNDCARE 09:00 | PROVIDERS: ATTEND Surgery | DX: E11.621 Type 2 diabetes mellitus with foot ulcer (principal); L97.422 Non-pressure chronic ulcer of left heel and midfoot with fat layer exposed; L98.491 Non-pressure chronic ulcer of skin of other sites limited to breakdown of skin; L97.522 Non-pressure chronic ulcer of other part of left foot with fat layer exposed; I70.244 Atherosclerosis of native arteries of left leg with ulceration of heel and midfoot; S50.11XA Contusion of right forearm, initial encounter | CPT/HCPCS: 11042 ==

== ENCOUNTER → 2017-08-06 | Outpatient (CLI) | payer MEDICARE, BC ==
[~2017-08-06] MED LIST changes: -GUAI-366 PO; +GUAI-367 PO
== END ==
LOC: WOUNDCARE 08:55
PROVIDERS: ATTEND Surgery
DX: E11.621 Type 2 diabetes mellitus with foot ulcer (principal); L97.422 Non-pressure chronic ulcer of left heel and midfoot with fat layer exposed; L97.521 Non-pressure chronic ulcer of other part of left foot limited to breakdown of skin; I70.244 Atherosclerosis of native arteries of left leg with ulceration of heel and midfoot; L98.491 Non-pressure chronic ulcer of skin of other sites limited to breakdown of skin
CPT/HCPCS: 11042; 87070; 87075; 87077; 87186; 87205; 97597

== ENCOUNTER → 2017-08-13 | Outpatient (CLI) | payer MEDICARE, BC | LOC: WOUNDCARE 08:55 | PROVIDERS: ATTEND Surgery | DX: E11.621 Type 2 diabetes mellitus with foot ulcer (principal); I70.235 Atherosclerosis of native arteries of right leg with ulceration of other part of foot; L97.512 Non-pressure chronic ulcer of other part of right foot with fat layer exposed; I70.244 Atherosclerosis of native arteries of left leg with ulceration of heel and midfoot; L97.522 Non-pressure chronic ulcer of other part of left foot with fat layer exposed; L97.422 Non-pressure chronic ulcer of left heel and midfoot with fat layer exposed | CPT/HCPCS: 11042 ==

== ENCOUNTER 2017-08-22 21:43 | Inpatient (IN) | payer MEDICARE, BC ==
[~2017-08-22] VITALS: Ht 177.8 cm; Wt 104.9 kg
[~2017-08-22 21:43] MED LIST changes: +DCL250C PO; +KRIL500C PO; +TROS20TA3 PO
--- OUTSIDE RECORDS SUMMARY | 2017-08-22 21:49 | XMS REPORT | Clinical Summary ---
Author Author [facility] Organization [facility] Address Unknown Phone Unavailable Care Team Providers Care Senior Ui Developer Name Role Phone PCP Unavailable Source Comments Some departments are not documenting in the electronic medical record. If you do not see the information that you expected, contact Release of Information in the Health Information Management department at [phone] for further assistance in locating additional records.[facility] Allergies Active Allergy Reactions Severity Noted [...] breath, Essential hypertension, Coronary artery disease involving [place] coronary artery of [place] heart without angina pectoris aspirin EC 81 [...] for O2 bleed in. Paroxysmal atrial fibrillation ([facility]) 06/30/2015 Overview: 12/02/13: Echo: LA size 5.5cm. EF 60%. Normal left ventricular systolic function. Mild MR, Mild TR. Essential hypertension 06/30/2015 COPD (chronic obstructive pulmonary disease) ([facility]) 06/30/2015 Last Assessment & Plan: [...] and Noc ox Coronary artery disease involving [place] coronary artery of [place] heart 10/2014 without angina pectoris Diabetic neuropathy [...] VACCINE 1996 PREVNAR/PNEUMOVAX (#1) 2001 INFLUENZA VACCINE 04/29/2017 Results Not on filefrom Last 3 Months
[2017-08-22] MEDS ORDERED: NS IV 500 ML 500 ML IV ONE (22:03)
[2017-08-22] MEDS ORDERED: RT-ALBUTEROL/IPRATROPIUM 3 ML (DUONEB) VIAL INH ONE (22:15)
[2017-08-22 22:20] LABS: BASOPHILS % (AUTO) 0 % (0-10); EOSINOPHILS % (AUTO) 0 % (0-10); LYMPHOCYTES % (AUTO) 7 % (12-44); MEAN CORPUSCULAR HEMOGLOBIN 28 PG (25-34); MEAN CORPUSCULAR HGB CONC 33 G/DL (32-36); MEAN CORPUSCULAR VOLUME 83 FL (80-99); MEAN PLATELET VOLUME 10.2 FL (7.4-10.4); MONOCYTES # (AUTO) 2.2 X 10^3 (0.0-1.0); MONOCYTES % (AUTO) 16 % (0-12); NEUTROPHILS # (AUTO) 10.3 X 10^3 (1.8-7.8); NEUTROPHILS % (AUTO) 77 % (42-75); PLATELET COUNT 146 10^3/uL (130-400); RED BLOOD COUNT 3.19 10^6/uL (4.35-5.85); RED CELL DISTRIBUTION WIDTH 16.1 % (10.0-14.5); WHITE BLOOD COUNT 13.5 10^3/uL (4.3-11.0)
[2017-08-22 22:37] LABS: ALBUMIN 3.2 GM/DL (3.2-4.5); BILIRUBIN,TOTAL 1.2 MG/DL (0.1-1.0); CALCIUM 9.6 MG/DL (8.5-10.1); CREATININE SERUM 1.5 MG/DL (0.60-1.30); MAGNESIUM 1.8 MG/DL (1.8-2.4); POTASSIUM 3.6 MMOL/L (3.6-5.0); TOTAL PROTEIN 7.5 GM/DL (6.4-8.2); hs C REACTIVE PROTEIN 11.4 MG/DL (0.00-0.50)
--- NOTE | 2017-08-22 22:37 | ED Respiratory ---
General Chief Complaint: Respiratory Problems Stated Complaint: NAUSEA,WEAKNESS Source: patient Exam Limitations: no limitations History of Present Illness Time seen by provider: 21:45 Initial Comments Here by EMS with report of shortness of breath as well as vomiting. Apparently was discharged from the hospital yesterday. He did have procedure to the right leg due to vascular concerns and had the vessels opened up apparently. Ultimately discharged yesterday and went home. Last night the reports he may have not got his meds but did give him his meds this morning. She noted that his blood sugar was elevated and gave him his insulin dosing. Afterwards he had some nausea and vomiting and shortness of breath. This evening, EMS was summoned because he had increasing shortness of breath and was feeling weak. He was on his home BiPAP which did help with his breathing. This was continued by EMS. His O2 sats were noted to be normal and in the high 90s on BiPAP at home and per EMS. No reported fevers. does report that he has had a few episodes of vomiting today. Denies diarrhea. He did take his morning medicines but did not take his night medicines. Timing/Duration: this morning Severity: moderate Associated Symptoms: No chest pain/soreness, No cough, nasal congestion, nasal drainage, shortness of breath, No sore throat, No wheezing Allergies and Home Medications Allergies Coded Allergies: sulfamethoxazole (Verified Allergy, Mild, RASH, 12/26/16) trimethoprim (Verified Allergy, Mild, RASH, 12/26/16) Home Medications Aspirin 81 Mg Tablet.dr, 81 MG PO 1400, (Reported) Carvedilol 12.5 Mg Tablet, 12.5 MG PO BID, (Reported) Cefdinir 300 Mg Capsule, 300 MG PO BID for 10 Days, (Reported) 10 DAY SUPPLY FILLED 08-11-17 Clopidogrel Bisulfate 75 Mg Tablet, 75 MG PO DAILY, #30 Ref 3 Prescribed by: KEELEY NIÑO on 08/21/17 0920 Dicloxacillin Sodium 250 Mg Cap, 250 MG PO QID for 10 Days, (Reported) 10 DAY SUPPLY FILLED 08-11-17 Digoxin 125 Mcg Tablet, 125 MCG PO DAILY, (Reported) Famotidine 20 Mg Tablet, 20 MG PO BID, (Reported) Furosemide 20 Mg Tablet, 40 MG PO 0800,1400, (Reported) TAKES 2 (20 MG) TABLETS Gabapentin 300 Mg Capsule, 300 MG PO BID, (Reported) Hydrocodone/Acetaminophen 1 Each Tablet, 1 EACH PO Q8H PRN for PAIN-MODERATE, ( Reported) Insuln Asp Prt/Insulin Aspart 1 Unit/0.01 Ml Susp, 28 UNIT SQ 1200, (Reported) WITH LUNCH Insuln Asp Prt/Insulin Aspart 1 Unit/0.01 Ml Susp, 30-32 UNIT SQ HS, (Reported) Iron Ag,Ps/C/Fa6/B12/Zn/SA/Sto 1 Each Tablet, 150 MG PO BID, (Reported) ON HOLD WHILE ON ANTIBIOTICS Krill Oil 500 Mg Capsule, 500 MG PO DAILY, (Reported) Lactobacillus Combo No.11 1 Each Cap.sprink, 1 CAP PO DAILY, (Reported) Losartan Potassium 25 Mg Tablet, 25 MG PO DAILY, (Reported) Potassium Chloride 20 Meq Tab.er.prt, 40 MEQ PO BID, (Reported) TAKES 2 (20MEQ) TABLETS Trospium Chloride 60 Mg Cap.er.24h, 60 MG PO DAILY, (Reported) Warfarin Sodium 5 Mg Tablet, 5 MG PO HS, (Reported) [nattokinase] , 2,000 PO DAILY, (Reported) Constitutional: see HPI, No chills, No fever EENTM: see HPI Respiratory: see HPI, cough, short of breath Cardiovascular: No chest pain, No palpitations Gastrointestinal: nausea, vomiting Genitourinary: No dysuria Musculoskeletal: No muscle pain, muscle weakness Skin: no symptoms reported Psychiatric/Neurological: No Symptoms Reported All Other Systems Reviewed Negative Unless Noted: Yes Past [id number]-Dozhjl Hx Patient Social History Alcohol Use: Denies Use Recreational Drug Use: No Smoking Status: Former Smoker Type Used: Cigarettes Former Smoker, Quit: Aug 20, 2005 2nd Hand Smoke Exposure: No Recent Foreign Travel: No Contact w/Someone Who Travel: No Recent Hopitalizations: Yes (SEP 2016 PER ) Immunizations Up To Date Tetanus Booster (TDap): Less than 5yrs PED Vaccines UTD: No Date of Pneumonia Vaccine: Aug 28, 2016 Date of Influenza Vaccine: Jul 16, 2017 Seasonal Allergies Seasonal Allergies: No Surgeries History of Surgeries: Yes (CATARACTS, CARPAL TUNNEL, BILAT.THUMBS) Surgeries: Eye Surgery, Orthopedic, Prostatectomy, Tonsillectomy, Vascular Surgery Respiratory History of Respiratory Disorde: Yes (CPAP AT HS; ACUTE ON CHRONIC RESPIRATORY FAILURE) Respiratory Disorders: Pneumonia, Sleep Apnea, COPD Currently Using CPAP: Yes Currently Using BIPAP: No Cardiovascular History of Cardiac Disorders: Yes Cardiac Disorders: Atrial Fibrillation, High Cholesterol, Hypertension Neurological History of Neurological Disord: Yes (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) Neurological Disorders: Neuropathy Reproductive System Hx Reproductive Disorders: No Sexually Transmitted Disease: No HIV/AIDS: No Genitourinary History of Genitourinary Disor: Yes (CHRONIC ADLER/TURP) Genitourinary Disorders: Benign Prostatic Hyperpl, Renal Failure, UTI-Chronic Gastrointestinal History of Gastrointestinal Di: No Gastrointestinal Disorders: Gastroesophageal Reflux, Chronic Constipation Musculoskeletal History of Musculoskeletal Dis: Yes (GENERALIZED WEAKNESS ) Endocrine History of Endocrine Disorders: Yes Endocrine Disorders: Diabetes, Insulin dep HEENT History of HEENT Disorders: Yes HEENT Disorders: Cataract, Macular Degeneration Hearing Impairment: Hard of Hearing Cancer History of Cancer: Yes (BASAL CELL CARCINOMA) Cancer: Skin Did You Recieve Any Treatments: No Psychosocial History of Psychiatric Problem: Yes Behavioral Health Disorders: Sleep Difficulties Integumentary History of Skin or Integumenta: Yes (CELLULITIS IN LEFT KNEE EARLY OCTOBER 2013) Skin/Integumentary Disorders: Recent Skin Changes Blood Transfusions History of Blood Disorders: No Adverse Reaction to a Blood Tr: No Reviewed Nursing Assessment Reviewed/Agree w Nursing PMH: Yes Family Medical History Significant Family History: Cancer Family Medial History: COPD 19 FATHER Colon cancer 19 MOTHER Diabetes mellitus G8 SISTER Drug abuse G8 SISTER Lung cancer 19 FATHER Polio G8 BROTHER Sarcoidosis G8 BROTHER Physical Exam Vital Signs Vital Sign - Last 12Hours 08/22/17 08/22/17 21:43 22:46 Temp 98.7 Pulse 90 Resp 20 B/P (MAP) 179/95 Pulse Ox 100 O2 Delivery NIV/CPAP O2 Flow Rate 50.00 Capillary Refill : General Appearance: WD/WN, mild distress (respiratory but improved with BiPAP) HEENT: PERRL/EOMI Neck: full range of motion, supple Respiratory: lungs clear, normal breath sounds Cardiovascular: tachycardia, irregularly irregular Gastrointestinal: non tender, soft Extremities: non-tender, pedal edema (1+ bilateral) Neurologic/Psychiatric: alert, oriented x 3 Skin: warm/dry, other (venous stasis changes to the bilateral lower extremities.) Focused Exam Evaluation Lactate Level Laboratory Tests 08/22/17 22:30: Lactic Acid Level 1.00 Lactic Acid Level Laboratory Tests Test 08/22/17 22:30 Lactic Acid Level 1.00 MMOL/L (0.50-2.00) Date of ETT Placement: Oct 13, 2016 Time of ETT Placement: 2129 Progress/Results/Core Measures Suspected Sepsis SIRS Temperature: Pulse: Respiratory Rate: Laboratory Tests 08/22/17 21:55: White Blood Count 13.5H Blood Pressure / Mean: Laboratory Tests 08/22/17 22:30: Lactic Acid Level 1.00 Laboratory Tests 08/22/17 21:55: Creatinine 1.50H, INR Comment 1.3, Platelet Count 146, Total Bilirubin 1.2H Results/Orders Lab Results Laboratory Tests Test 08/22/17 21:55 08/22/17 21:59 08/22/17 22:30 Range/Units White Blood Count 13.5 H 4.3-11.0 10^3/uL Red Blood Count 3.19 L 4.35-5.85 10^6/uL Hemoglobin 8.8 L 13.3-17.7 G/DL Hematocrit 27 L 40-54 % Mean Corpuscular Volume 83 80-99 FL Mean Corpuscular Hemoglobin 28 25-34 PG Mean Corpuscular Hemoglobin Concent 33 32-36 G/DL Red Cell Distribution Width 16.1 H 10.0-14.5 % Platelet Count 146 130-400 10^3/uL Mean Platelet Volume 10.2 7.4-10.4 FL Neutrophils (%) (Auto) 77 H 42-75 % Lymphocytes (%) (Auto) 7 L 12-44 % Monocytes (%) (Auto) 16 H 0-12 % Eosinophils (%) (Auto) 0 0-10 % Basophils (%) (Auto) 0 0-10 % Neutrophils # (Auto) 10.3 H 1.8-7.8 X 10^3 Lymphocytes # (Auto) 1.0 1.0-4.0 X 10^3 Monocytes # (Auto) 2.2 H 0.0-1.0 X 10^3 Eosinophils # (Auto) 0.0 0.0-0.3 10^3/uL Basophils # (Auto) 0.0 0.0-0.1 10^3/uL Neutrophils % (Manual) 83 % Lymphocytes % (Manual) 9 % Monocytes % (Manual) 6 % Eosinophils % (Manual) 0 % Basophils % (Manual) 0 % Band Neutrophils 2 % Blood Morphology Comment NORMAL Prothrombin Time 15.9 H 12.2-14.7 SEC INR Comment 1.3 0.8-1.4 Activated Partial Thromboplast Time 43 H 24-35 SEC Sodium Level 136 135-145 MMOL/L Potassium Level 3.6 3.6-5.0 MMOL/L Chloride Level 103 98-107 MMOL/L Carbon Dioxide Level 24 21-32 MMOL/L Anion Gap 9 5-14 MMOL/L Blood Urea Nitrogen 20 H 7-18 MG/DL Creatinine 1.50 H 0.60-1.30 MG/DL Estimat Glomerular Filtration Rate 45 BUN/Creatinine Ratio 13 Glucose Level 208 H 70-105 MG/DL Calcium Level 9.6 8.5-10.1 MG/DL Magnesium Level 1.8 1.8-2.4 MG/DL Total Bilirubin 1.2 H 0.1-1.0 MG/DL Aspartate Amino Transf (AST/SGOT) 11 5-34 U/L Alanine Aminotransferase (ALT/SGPT) 9 0-55 U/L Alkaline Phosphatase 70 40-136 U/L C-Reactive Protein High Sensitivity 11.40 H 0.00-0.50 MG/DL Total Protein 7.5 6.4-8.2 GM/DL Albumin 3.2 3.2-4.5 GM/DL B-Type Natriuretic Peptide 667.7 H <100.0 PG/ML Lactic Acid Level 1.00 0.50-2.00 MMOL/L My Orders Orders - OKSANA MOODY MD Cbc With Automated Diff (08/22/17 22:03) Comprehensive Metabolic Panel (08/22/17 22:03) Hs C Reactive Protein (08/22/17 22:03) Magnesium (08/22/17 22:03) Protime With Inr (08/22/17 22:03) Partial Thromboplastin Time (08/22/17 22:03) Ns Iv 500 Ml (Sodium Chloride 0.9%) (08/22/17 22:03) Chest 1 View, Ap/Pa Only (08/22/17 22:03) Albuterol/Ipra Inhalation Soln (Duoneb I (08/22/17 22:15) Svn Sm Volume Nebulizer Rt-Rfs (08/22/17 22:03) Ekg Tracing (08/22/17 22:06) O2 (08/22/17 22:06) Monitor-Rhythm Ecg Trace Only (08/22/17 22:06) Manual Differential (08/22/17 21:55) Lactic Acid Analyzer (08/22/17 22:40) Blood Culture (08/22/17 22:40) BNP (08/22/17 22:40) Piperacillin Sodium/Tazobactam (Zosyn Vi (08/22/17 23:30) Furosemide Injection (Lasix Injection) (08/22/17 23:19) Piperacillin Sodium/Tazobactam (Zosyn Vi (08/22/17 23:13) Ns (Ivpb) (Sodium Chloride 0.9% Ivpb Bag (08/22/17 23:14) Medications Given in ED Current Medications Medications Dose Ordered Sig/Nidhi Route Start Time Stop Time Status Last Admin Dose Admin Albuterol/ Ipratropium 3 ml ONCE ONCE INH 08/22/17 22:15 08/22/17 22:16 DC 08/22/17 22:46 3 ML Sodium Chloride 500 ml @ 0 mls/hr Q0M ONCE IV 08/22/17 22:03 08/22/17 22:06 DC 08/22/17 22:21 500 MLS/HR Vital Signs/I&O Vital Sign - Last 12Hours 08/22/17 08/22/17 08/22/17 21:43 21:50 22:46 Temp 98.7 Pulse 90 89 Resp 20 28 B/P (MAP) 179/95 Pulse Ox 100 100 100 O2 Delivery NIV/CPAP NIV CPAP O2 Flow Rate 50.00 Capillary Refill : Progress Note : Progress Note Seen and evaluated. IV by EMS. Labs, EKG and chest x-ray ordered. Blood cultures and lactic acid ordered after chest x-ray findings concerning for infiltrate. Heart rate improved with 500 mL of normal saline. Monitor patient. 2315: I have reviewed the labs and chest x-ray with Dr. Niño. There is a question of volume overload as patient did receive quite a bit of fluid during the procedures yesterday and the day before. There is also question of infiltrate. Patient's white count is elevated which may be related to the vomiting but also may be pneumonia. We will go ahead and treat as pneumonia but also consider volume overload. Zosyn 4.5 g IV initiated. Lasix 40 mg IV ordered. Admit, inpatient status. Patient and family agree with plan. Patient is currently on BiPAP with heart rate in the 80s to 90s now and feeling more comfortable. ECG Initial ECG Impression Date: Aug 22, 2017 Initial ECG Impression Time: 21:49 Initial ECG Rate: 101 Initial ECG Rhythm: A Fib/Flutter Initial ECG Comparisson: No Previous ECG Available Comment Atrial fibrillation with normal axis. No evidence of ST elevation [place]. Ventricular leads show widened QRS complexes from previous. Interpreted by me. Diagnostic Imaging Diagonstic Imaging: Xray Plain Films/CT/US/NM/MRI: chest Comments Questionable bibasilar infiltrate. Increased vascular congestion. Departure Communication (Admissions) Time/Spoke to Admitting Phy: 23:15 Impression Impression: Primary Impression: Bilateral pneumonia Qualified Codes: J18.9 - Pneumonia, unspecified organism Additional Impression: Acute heart failure Qualified Codes: I50.9 - Heart failure, unspecified Disposition: 09 ADMITTED INPATIENT Condition: Stable Admissions Decision to Admit Reason: Admit from ER (General) Decision to Admit/Date: Aug 22, 2017 Time/Decision to Admit Time: 23:15 Departure-Patient Inst. Referrals: RUBEN SANCHEZ MD (PCP/Family) Primary Care Physician OKSANA MOODY MD Aug 22, 2017 22:37
[2017-08-22 22:41] LABS: BAND NEUTROPHILS 2 %; BASOPHILS % (MANUAL) 0 %; EOSINOPHILS % (MANUAL) 0 %; LYMPHOCYTES % (MANUAL) 9 %; NEUTROPHILS % (MANUAL) 83 %
[2017-08-22 22:45] LABS: INR 1.3 (0.8-1.4); PROTHROMBIN TIME PATIENT 15.9 SEC (12.2-14.7)
[2017-08-22 22:46] VITALS: BP 179/95
[2017-08-22] MEDS ORDERED: PIPERACILLIN/TAZO 4.5 GM VIAL (ZOSYN) IV ONE ×2 (23:13→23:30)
[2017-08-22] MEDS ORDERED: NS (IVPB) 100 ML ONE (23:14)
[2017-08-22] MEDS ORDERED: FUROSEMIDE 40 MG/4 ML INJ (LASIX) IV STA (23:19)
--- OUTSIDE RECORDS SUMMARY | 2017-08-23 00:39 | XMS REPORT | Clinical Summary ---
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 If you do not see the information that you expected, contact Release of Information in the Health Information Management department at [phone] for further assistance in locating additional records.[facility] Allergies Active Allergy Reactions Severity Noted [...] breath, Essential hypertension, Coronary artery disease involving [place] coronary artery of [place] heart without angina pectoris aspirin EC 81 [...] O2 bleed in. Paroxysmal atrial fibrillation ([facility]) 06/30/2015 Overview: 12/02/13: Echo: LA size 5.5cm. EF 60%. Normal left ventricular systolic function. Mild MR, Mild TR. Essential hypertension 06/30/2015 COPD (chronic obstructive pulmonary disease) ([facility]) 06/30/2015 Last Assessment & Plan: COPD with [...] and Noc ox Coronary artery disease involving [place] coronary artery of [place] heart 10/2014 without angina pectoris Diabetic neuropathy [...]
[2017-08-23 01:00] VITALS: BP 169/80
[2017-08-23] MEDS ORDERED: CATHETER FLUSH 10 ML SYR IV PRN (02:00)
[2017-08-23] MEDS ORDERED: ONDANSETRON 4 MG/2 ML (SDV) Z0FRAN IV PRN (02:00)
[2017-08-23] MEDS: NS IV 1000 ML 1,000 ML IV SCH (02:54)
[2017-08-23 03:16] VITALS: BP_SYST 164; BP_SYST 169; BP_DIAS 77; BP_DIAS 80
[2017-08-23] MEDS ORDERED: RT-ALBUTEROL/IPRATROPIUM 3 ML (DUONEB) VIAL INH PRN (03:30)
[2017-08-23] MEDS: PIPERACILLIN/TAZOBACTAM 4.5 GM/NS100 ML IVPB IV SCH ×6 (05:13→20:44)
[2017-08-23] MEDS ORDERED: inSUlin (REGULAR) HUMAN 1 UNIT/0.01 ML (CHARGE PER UNIT) SC SCH (06:00)
[2017-08-23] MEDS: CATHETER FLUSH 10 ML SYR IV SCH ×3 (06:10→22:00)
[2017-08-23] MEDS: RT-ALBUTEROL/IPRATROPIUM 3 ML (DUONEB) VIAL INH SCH ×5 (07:02→22:12)
[2017-08-23 08:00] VITALS: BP 162/76
--- NOTE | 2017-08-23 08:11 | Diagnostic Imaging Report ---
INDICATION: Shortness of breath, weakness. COMPARISON: 08/20/2017. FINDINGS: Chronic COPD, air trapping and prominence of the interstitial lung markings with old healed right rib deformities, all unchanged. No effusion or pneumothorax. Mild cardiomegaly is not substantially changed. No free air beneath the diaphragms. IMPRESSION: Air trapping. COPD. Chronic interstitial opacities. Mild cardiomegaly. Old rib deformities. All unchanged from prior. Dictated by: Dictated on workstation # [id number]
--- NOTE | 2017-08-23 10:10 | Cardiology History & Physical ---
HPI-Cardiology Cardiology Consultation Date of Consultation 08/23/17 Date of Admission Time Seen by Provider: 10:04 Indication: Shortness of breath HPI 81 years old gentleman with extensive history of peripheral Disease and coronary artery disease patient renal insufficiency. Patient underwent angiogram last week, received large amount of IV fluid pre-and post intervention and educated on consuming large amount of fluid. He has been having nausea and vomiting, increasing shortness of breath which became significantly worse yesterday, brought to the emergency room. Has been having mild chest pain. No fever or chills. No palpitation. No pedal edema. PMH-Cardiology Immunizations Up To Date Tetanus Booster (DTap): Less than 5yrs Date of Pneumonia Vaccine: Aug 28, 2016 Date of Influenza Vaccine: Jul 16, 2017 Seasonal Allergies Seasonal Allergies: No Surgeries Yes (CATARACTS, CARPAL TUNNEL, BILAT.THUMBS) Adenoidectomy, Tonsillectomy, Orthopedic Respiratory Yes (CPAP AT HS; ACUTE ON CHRONIC RESPIRATORY FAILURE) Cardiovascular Yes Atrial Fibrillation, Hypertension Neurological Yes (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) Neuropathy Reproductive System Hx Reproductive Disorders: No Sexually Transmitted Disease: No HIV/AIDS: No Genitourinary Yes (CHRONIC ADLER/TURP) Benign Prostatic Hyperpl, Renal Failure, UTI-Chronic Gastrointestinal No Gastroesophageal Reflux, Chronic Constipation Musculoskeletal Yes (GENERALIZED WEAKNESS ) Endocrine Yes Diabetes, Insulin dep HEENT Yes Cataract, Macular Degeneration Hearing Impairment: Hard of Hearing Cancer Yes (BASAL CELL CARCINOMA) Skin Did You Recieve Any Treatments: No Psychosocial Yes Sleep Difficulties Integumentary Yes (CELLULITIS IN LEFT KNEE EARLY OCTOBER 2013) Recent Skin Changes Blood Transfusions No Adverse Rxn to Transfusion: No Social History Patient Social History Marrital Status: Employed/Student: retired Alcohol Use: Denies Use Recreational Drug Use: No Dip or chew tobacco?: No Recent Foreign Travel: No Contact w/other who traveled: No Recent Infectious Disease Expo: No Family Hx Significant Family History: Cancer Family History: COPD 19 FATHER Colon cancer 19 MOTHER Diabetes mellitus G8 SISTER Drug abuse G8 SISTER Lung cancer 19 FATHER Polio G8 BROTHER Sarcoidosis G8 BROTHER ROS-Cardiology Review of Systems General: No Chills, No Night Sweats, Fatigue, Malaise, Appetite HEENT: No Head Aches, No Visual Changes, No Eye Pain, No Ear Pain, No Dysphasia , No Sinus Congestion, No Post Nasal Drip, No Sore Throat Pulmonary: Dyspnea, No Cough, No Pleuritic Chest Pain Cardiovascular: Chest Pain, Edema, No: Palpitations, Orthopnea, Paroxysmal Noc. Dyspnea, Lt Headedness Gastrointestinal: Nausea, Vomiting, No: Abdominal Pain, Diarrhea, Constipation , Melena, Hematochezia Genitourinary: No Dysuria, No Frequency, No Incontinence, No Hematuria, No Retention Musculoskeletal: neck pain, No: shoulder pain, arm pain, back pain, hand pain, leg pain, foot pain Neurological: Weakness, No: Numbness, Incoordination, Change in speech, Confusion, Seizures Home Medications & Allergies Allergies: Coded Allergies: sulfamethoxazole (Verified Allergy, Mild, RASH, 12/26/16) trimethoprim (Verified Allergy, Mild, RASH, 12/26/16) Home Medication List Reviewed: Yes Exam-Cardiology Vital Signs Vital Signs Date Time Temp Pulse Resp B/P (MAP) Pulse Ox O2 Delivery O2 Flow Rate FiO2 08/23/17 08:00 98.9 100 24 162/76 98 NIV Bilevel 08/23/17 07:02 35.00 08/23/17 03:16 45 Exam General Appearance: Alert, Oriented X3, Cooperative, No Acute Distress HEENT: Atraumatic, PERRLA Respiratory: Clear to Auscultation, Normal Air Movement Cardiovascular: Regular Rate, Normal S1, Normal S2, No Murmurs Abdominal: Normal Bowel Sounds, Soft, No Tenderness, No Hepatosplenomegaly, No Masses Extremities: No Cyanosis, No Edema, No Tenderness/Swelling, Other (foot ulcers bilaterally) Skin: No Rashes, No Breakdown, No Significant Lesion Neuro: Normal Gait, Normal Speech, Strength at 5/5 X4 Ext, Normal Tone, Sensation Intact Psych/Mental Status: Mental Status NL, Mood NL Results Labs Labs Laboratory Tests 08/22/17 21:55: White Blood Count 13.5H, Red Blood Count 3.19L, Hemoglobin 8.8L, Hematocrit 27L , Mean Corpuscular Volume 83, Mean Corpuscular Hemoglobin 28, Mean Corpuscular Hemoglobin Concent 33, Red Cell Distribution Width 16.1H, Platelet Count 146, Mean Platelet Volume 10.2, Neutrophils (%) (Auto) 77H, Lymphocytes (%) (Auto) 7L , Monocytes (%) (Auto) 16H, Eosinophils (%) (Auto) 0, Basophils (%) (Auto) 0, Neutrophils # (Auto) 10.3H, Lymphocytes # (Auto) 1.0, Monocytes # (Auto) 2.2H, Eosinophils # (Auto) 0.0, Basophils # (Auto) 0.0, Neutrophils % (Manual) 83, Lymphocytes % (Manual) 9, Monocytes % (Manual) 6, Eosinophils % (Manual) 0, Basophils % (Manual) 0, Band Neutrophils 2, Blood Morphology Comment NORMAL, Prothrombin Time 15.9H, INR Comment 1.3, Activated Partial Thromboplast Time 43H , Sodium Level 136, Potassium Level 3.6, Chloride Level 103, Carbon Dioxide Level 24, Anion Gap 9, Blood Urea Nitrogen 20H, Creatinine 1.50H, Estimat Glomerular Filtration Rate 45, BUN/Creatinine Ratio 13, Glucose Level 208H, Calcium Level 9.6, Magnesium Level 1.8, Total Bilirubin 1.2H, Aspartate Amino Transf (AST/SGOT) 11, Alanine Aminotransferase (ALT/SGPT) 9, Alkaline Phosphatase 70, C-Reactive Protein High Sensitivity 11.40H, Total Protein 7.5, Albumin 3.2 08/22/17 21:59: B-Type Natriuretic Peptide 667.7H 08/22/17 22:30: Lactic Acid Level 1.00 08/23/17 05:27: Glucometer 172H A/P-Cardiology Admission Diagnosis Shortness of breath Acute excess her vision of COPD Fluid overload Peripheral arterial disease Assessment/Plan Shortness of breath, worsening fluid overload, received large amount of IV fluid over the past few days. Started on IV Lasix, having leukocytosis, monitor chest x-ray, restart home medication. Patient was started on IV antibiotics empirically, blood cultures were done. Lactic acid is normal. History of COPD, Obstructive sleep apnea, status post prolonged respiratory failure and transferred to [facility]. Recent hospitalization for sepsis at [facility]. Nausea and loss of appetite. Reporting improvement. Continue to monitor. Permanent atrial fibrillation. [id number] score is 4, yearly risk of stroke without oral anticoagulation is 4 percent. Maintained on Coumadin. Continue on current medications and monitor. Dyspnea on exertion, chronic. Limited exercise ability, advanced COPD, oxygen dependent. Generalized weakness. History of chronic left ventricular diastolic dysfunction, ejection fraction 60 percent in September 2016. Hypertensive heart disease. Continue to monitor. Hypertension, restart home medication monitor blood pressure Questionable coronary artery disease, patient has multiple risk factors, has been refusing to have a stress test. Continue to monitor Peripheral vascular disease, extensive disease, multiple interventions in the past, last cardiac catheterization was done earlier last week showin. Severe peripheral arterial disease below the knee on the right side, successful balloon angioplasty to the tibioperoneal trunk and the posterior tibial artery with improvement of total occlusion and into patent artery with good flow, the peroneal artery is occluded reconstructed by collaterals. 2. Moderate disease at the anterior tibial artery on the right side with good flow down to the foot 3. Severe stenosis at the proximal portion of the left SFA 4. Severe stenosis at the left side below the knee with single-vessel runoff down to the foot Chronic venous insufficiency, seen by Dr. Castro in [place], status post ablation by Dr. Castro on the right side. Hyperlipidemia, lipid profile was done on June 18, 2017 showing total cholesterol 110, triglyceride 78, HDL 19, LDL 78. Continue current medications and monitor Diabetes mellitus. Followed and managed by primary care physician. Continue to monitor Diabetic neuropathy. Chronic renal insufficiency, continue to monitor renal function. Mild bilateral carotid stenosis, last ultrasound was done in May 2017, continue to monitor. Clinical Quality Measures DVT/VTE Risk/Contraindication: Risk Factor Score Per Nursin RFS Level Per Nursing on Admit: 4+=Very High KEELEY ROSSI MD Aug 23, 2017 10:10
[2017-08-23] MEDS ORDERED: HYDROcodone/APAP 7.5 MG/325 MG (LORTAB, LORCET PLUS) TABLET PO PRN (10:30)
--- NOTE | 2017-08-23 11:44 | Consultation-Hospitalist ---
HPI History of Present Illness: HPI/Chief Complaint CC: Dyspnea with volume overload and pneumonia HPI: This is an 81yoWM patient of Dr Hugo Alexander who presented to the ER w/c/o dyspnea w/h/o severe PVD s/p intervention per Dr Niño this past week and went home on Friday but was given fluids prior to intervention due to h/o elevated creatinine who began to have N/V once her was DC and worsened to the point of reporting to the ER and found to have volume overload and evidence of pneumonia. Currently he is on biPAP and comfortable with that. I reviewed home meds and adjusted insulin regimen and restarted his DM neuropathy meds. Currently he is breathing better and labs were reviewed along with current MAR. Source: patient Exam Limitations: no limitations Date Seen 08/23/17 Attending Physician Willis Niño MD PCP Hugo Alexander MD Referring Physician Date of Admission Aug 22, 2017 at 23:30 Home Medications & Allergies Home Medications Reviewed patient Home Medication Reconciliation Form Allergies Allergies Coded Allergies sulfamethoxazole (Verified Allergy, Mild, RASH, 12/26/16) trimethoprim (Verified Allergy, Mild, RASH, 12/26/16) Past [id number] Hx Patient Social History Marrital Status: Employed/Student: retired Alcohol Use: Denies Use Recreational Drug Use: No Smoking Status: Former Smoker Former Smoker, Quit: Aug 20, 2005 Type Used: Cigarettes 2nd Hand Smoke Exposure: No Physical Abuse Screen: No Sexual Abuse: No Recent Foreign Travel: No Contact w/other who traveled: No Recent Hopitalizations: Yes (SEP 2016 PER ) Recent Infectious Disease Expo: No Immunizations Up To Date Tetanus Booster (TDap): Less than 5yrs Pediatric: No Date of Pneumonia Vaccine: Aug 28, 2016 Date of Influenza Vaccine: Jul 16, 2017 Seasonal Allergies Seasonal Allergies: No Surgeries Yes (CATARACTS, CARPAL TUNNEL, BILAT.THUMBS) Eye Surgery, Orthopedic, Prostatectomy, Tonsillectomy, Vascular Surgery Respiratory Yes (CPAP AT HS; ACUTE ON CHRONIC RESPIRATORY FAILURE) COPD, Pneumonia, Sleep Apnea Currently Using CPAP: Yes Currently Using BIPAP: No Cardiovascular Yes Atrial Fibrillation, High Cholesterol, Hypertension Neurological Yes (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) Neuropathy Reproductive System Hx Reproductive Disorders: No Sexually Transmitted Disease: No HIV/AIDS: No Genitourinary Yes (CHRONIC ADLER/TURP) Benign Prostatic Hyperpl, Renal Failure, UTI-Chronic Gastrointestinal No Gastroesophageal Reflux, Chronic Constipation Musculoskeletal Yes (GENERALIZED WEAKNESS ) Endocrine History of Endocrine Disorders: Yes Endocrine Disorders: Diabetes, Insulin dep HEENT History of HEENT Disorders: Yes HEENT Disorders: Cataract, Macular Degeneration Hearing Impairment: Hard of Hearing Cancer Yes (BASAL CELL CARCINOMA) Skin Did You Recieve Any Treatments: No Psychosocial History of Psychiatric Problem: Yes Behavioral Health Disorders: Sleep Difficulties Integumentary History of Skin or Integumenta: Yes (CELLULITIS IN LEFT KNEE EARLY OCTOBER 2013) Skin/Integumentary Disorders: Recent Skin Changes Blood Transfusions History of Blood Disorders: No Adverse Reaction to a Blood Tr: No Reviewed Nursing Assessment Reviewed/Agree w Nursing PMH: Yes Family Medical History Significant Family History: Cancer Family Hx: COPD 19 FATHER Colon cancer 19 MOTHER Diabetes mellitus G8 SISTER Drug abuse G8 SISTER Lung cancer 19 FATHER Polio G8 BROTHER Sarcoidosis G8 BROTHER Review of Systems Constitutional: see HPI, weakness EENTM: no symptoms reported Respiratory: short of breath Cardiovascular: no symptoms reported Gastrointestinal: nausea, vomiting Genitourinary: no symptoms reported Musculoskeletal: joint pain Skin: no symptoms reported Psychiatric/Neurological: Numbness, Tingling All Other Systems Reviewed Negative Unless Noted: Yes Physical Exam Physical Exam Vital Signs Vital Sign - Last 12Hours 08/22/17 08/22/17 08/23/17 21:43 22:46 03:16 Temp 98.7 Pulse 90 Resp 20 B/P (MAP) 179/95 Pulse Ox 100 O2 Delivery NIV/CPAP O2 Flow Rate 50.00 FiO2 45 Capillary Refill : Less Than 3 Seconds General Appearance: No Apparent Distress, WD/WN, Chronically ill, Obese Eyes: Bilateral Eye Normal Inspection, Bilateral Eye PERRL HEENT: PERRL/EOMI, Normal ENT Inspection, Pharynx Normal Neck: Full Range of Motion, Normal Inspection, Non Tender, Supple, Carotid Bruit Respiratory: Chest Non Tender, Normal Breath Sounds, No Accessory Muscle Use, No Respiratory Distress, Decreased Breath Sounds, Other (on biPAP) Cardiovascular: Regular Rate, Rhythm, No Edema, No Gallop, No JVD, No Murmur, Normal Peripheral Pulses Gastrointestinal: Normal Bowel Sounds, No Organomegaly, No Pulsatile Mass, Non Tender, Soft Back: Normal Inspection, No CVA Tenderness, No Vertebral Tenderness Extremity: Normal Capillary Refill, Normal Inspection, Normal Range of Motion, Non Tender, No Calf Tenderness, No Pedal Edema Neurologic/Psychiatric: Alert, Oriented x3, No Motor/Sensory Deficits, Normal Mood/Affect Skin: Normal Color, Warm/Dry Lymphatic: No Adenopathy Results Results/Procedures Lab Laboratory Tests 08/22/17 21:55 Assessment/Plan Admission Diagnosis Assessment: Dyspnea with hypoxia requiring biPAP, IV diuresis and IV abx for infiltrate on CXR Severe PVD s/p intervention last week with IVF given to protect from contrast Dementia DM Neuropathy severe CRI Anemia of chronic illness Assessment and Plan Plan: IV abx Accuchecks with SSI Novolog Home meds Monitor creatinine Nebs BiPAP Prognosis guarded Clinical Quality Measures DVT/VTE Risk/Contraindication: Risk Factor Score Per Nursin RFS Level Per Nursing on Admit: 4+=Very High SASCHA MORTENSEN DO Aug 23, 2017 11:44
[2017-08-23 12:00] VITALS: BP 136/77
[2017-08-23] MEDS ORDERED: inSUlin Protamine/ASPart 70/30 1 UNIT/0.01 ML DOSE SQ SCH ×2 (12:00→21:00)
[2017-08-23] MEDS: FUROSEMIDE 40 MG/4 ML INJ (LASIX) IVP SCH ×2 (13:18→16:57)
[2017-08-23] MEDS: LOSARTAN 25 MG (COZAAR) TAB PO SCH (13:19)
[2017-08-23] MEDS: DIGOXIN 0.125 MG (LANOXIN) TAB PO SCH (13:19)
[2017-08-23] MEDS: CLOPIDOGREL 75 MG (PLAVIX) TABLET PO SCH (13:19)
[2017-08-23] MEDS: ASPIRIN E.C. 81 MG (ECOTRIN) TAB PO SCH (13:19)
[2017-08-23] MEDS: GABAPENTIN 300 MG (NEURONTIN) CAP PO SCH ×2 (13:19→20:46)
[2017-08-23] MEDS: CARVEDILOL 12.5 MG (COREG) TABLET PO SCH ×2 (13:20→20:46)
[2017-08-23] MEDS ORDERED: FUROSEMIDE 20 MG (LASIX) TAB PO SCH (14:00)
[2017-08-23 16:29] VITALS: BP 126/69
[2017-08-23] MEDS: inSUlin ASPART (NovoLOG) 1 UNIT/0.01 ML (CHARGE PER UNIT) SC SCH ×2 (16:57→20:45)
[2017-08-23] MEDS: KCL 20 MEQ TAB (K-DUR) PO SCH (16:57)
[2017-08-23 20:20] VITALS: BP 160/85
[2017-08-23] MEDS: warFARin 5 MG (COUMADIN) TAB PO SCH (20:45)
[2017-08-23] MEDS ORDERED: GABAPENTIN 300 MG (NEURONTIN) CAP PO SCH (21:00)
[2017-08-23] MEDS ORDERED: CARVEDILOL 12.5 MG (COREG) TABLET PO SCH (21:00)
[2017-08-24] VITALS (8 sets, daily range): BP systolic 100–163; BP diastolic 62–81
[2017-08-24] MEDS: RT-ALBUTEROL/IPRATROPIUM 3 ML (DUONEB) VIAL INH SCH ×6 (02:20→21:02)
[2017-08-24 04:33] LABS: BASOPHILS % (AUTO) 0 % (0-10); EOSINOPHILS # (AUTO) 0.1 10^3/uL (0.0-0.3); EOSINOPHILS % (AUTO) 2 % (0-10); LYMPHOCYTES # (AUTO) 1.3 X 10^3 (1.0-4.0); LYMPHOCYTES % (AUTO) 14 % (12-44); MEAN CORPUSCULAR HEMOGLOBIN 27 PG (25-34); MEAN CORPUSCULAR HGB CONC 32 G/DL (32-36); MEAN CORPUSCULAR VOLUME 85 FL (80-99); MEAN PLATELET VOLUME 10.5 FL (7.4-10.4); MONOCYTES # (AUTO) 1.5 X 10^3 (0.0-1.0); MONOCYTES % (AUTO) 17 % (0-12); NEUTROPHILS # (AUTO) 6.3 X 10^3 (1.8-7.8); NEUTROPHILS % (AUTO) 68 % (42-75); PLATELET COUNT 143 10^3/uL (130-400); RED BLOOD COUNT 2.56 10^6/uL (4.35-5.85); RED CELL DISTRIBUTION WIDTH 16.2 % (10.0-14.5); WHITE BLOOD COUNT 9.3 10^3/uL (4.3-11.0)
[2017-08-24 04:52] LABS: INR 1.5 (0.8-1.4); PROTHROMBIN TIME PATIENT 17.7 SEC (12.2-14.7)
[2017-08-24 05:01] LABS: ALBUMIN 2.7 GM/DL (3.2-4.5); BILIRUBIN,TOTAL 1.3 MG/DL (0.1-1.0); CREATININE SERUM 1.81 MG/DL (0.60-1.30); MAGNESIUM 1.8 MG/DL (1.8-2.4); POTASSIUM 3.4 MMOL/L (3.6-5.0); TOTAL PROTEIN 6.3 GM/DL (6.4-8.2)
[2017-08-24] MEDS: KCL 20 MEQ TAB (K-DUR) PO SCH ×2 (06:07→17:09)
[2017-08-24] MEDS: FUROSEMIDE 40 MG/4 ML INJ (LASIX) IVP SCH ×2 (06:07→17:09)
[2017-08-24] MEDS: PIPERACILLIN/TAZOBACTAM 4.5 GM/NS100 ML IVPB IV SCH ×6 (06:08→21:12)
[2017-08-24] MEDS: inSUlin ASPART (NovoLOG) 1 UNIT/0.01 ML (CHARGE PER UNIT) SC SCH ×4 (06:12→20:43)
[2017-08-24] MEDS: CATHETER FLUSH 10 ML SYR IV SCH ×3 (06:13→21:13)
[2017-08-24] MEDS: GABAPENTIN 300 MG (NEURONTIN) CAP PO SCH ×2 (08:01→20:07)
[2017-08-24] MEDS: DIGOXIN 0.125 MG (LANOXIN) TAB PO SCH (08:01)
[2017-08-24] MEDS: CARVEDILOL 12.5 MG (COREG) TABLET PO SCH ×2 (08:02→20:07)
[2017-08-24] MEDS: LOSARTAN 25 MG (COZAAR) TAB PO SCH (08:02)
[2017-08-24] MEDS: CLOPIDOGREL 75 MG (PLAVIX) TABLET PO SCH (08:02)
[2017-08-24] MEDS: LACTOBACILLUS Acidoph/Bulgar (LACTINEX/FLORANEX) TAB PO SCH (08:02)
[2017-08-24] MEDS ORDERED: TROSPIUM CHLORIDE 60 MG PO SCH (09:00)
[2017-08-24] MEDS ORDERED: DIGOXIN 0.125 MG (LANOXIN) TAB PO SCH (09:00)
[2017-08-24] MEDS ORDERED: NON-FORMULARY MEDICATION 1 EA EA (Krill Oil 500 MG) PO SCH (09:00)
[2017-08-24] MEDS ORDERED: [UNRECOGNIZED DRUG - OTHER] PO SCH (09:00)
[2017-08-24] MEDS ORDERED: LOSARTAN 25 MG (COZAAR) TAB PO SCH (09:00)
[2017-08-24] MEDS ORDERED: CLOPIDOGREL 75 MG (PLAVIX) TABLET PO SCH (09:00)
[2017-08-24] MEDS: NS IV 1000 ML 1,000 ML IV SCH (09:02)
--- NOTE | 2017-08-24 09:20 | Diagnostic Imaging Report ---
INDICATION: Short of air. Pneumonia. FINDINGS: 2 view shows mild cardiomegaly with normal vascularity. No infiltrates are seen. Small effusion present seen posteriorly which I believe is on the left. IMPRESSION: The interstitial infiltrates have resolved since 08/22/2017. There is a small pleural effusion. Dictated by: Dictated on workstation # [id number]
[2017-08-24] MEDS ORDERED: NS IV 500 ML 500 ML IV SCH (10:14)
--- NOTE | 2017-08-24 11:20 | Progress Note-Hospitalist ---
Progress Note HPI/CC on Admission CC: Dyspnea with volume overload and pneumonia HPI: This is an 81yoWM patient of Dr Hugo Alexander who presented to the ER w/c/o dyspnea w/h/o severe PVD s/p intervention per Dr Niño this past week and went home on Friday but was given fluids prior to intervention due to h/o elevated creatinine who began to have N/V once her was DC and worsened to the point of reporting to the ER and found to have volume overload and evidence of pneumonia. Currently he is on biPAP and comfortable with that. I reviewed home meds and adjusted insulin regimen and restarted his DM neuropathy meds. Currently he is breathing better and labs were reviewed along with current MAR. Progress Notes/Assess & Plan Date Seen 08/24/17 Time Seen by Provider: 10:30 Admission Dx/Process Assessment: Dyspnea with hypoxia requiring biPAP, IV diuresis and IV abx for infiltrate on CXR Severe PVD s/p intervention last week with IVF given to protect from contrast Dementia DM Neuropathy severe CRI Anemia of chronic illness Diagonsis/Assessment & Plan Patient doing better today, off biPAP. Conferred with Dr Niño and updated him on the need for 1 unit of blood. Pt has long standing h/o chronic illnesses along with acute issues currently as the source of the decrease rbc production + BM Urinating well. Dr Niño will address more of the severe PVD at a later date. at bedside Checked meds and labs CXR improved AFVSS, Pleasant, O x 2-3 poor recall, flat affect RRR, CTAB diminished in bases No edema Laboratory Tests 08/24/17 04:24 Assessment: Dyspnea with hypoxia requiring biPAP, IV diuresis and IV abx for infiltrate on CXR AECOPD Severe PVD s/p intervention last week with IVF given to protect from contrast Dementia DM Neuropathy severe CRI creat 1.8 Anemia of chronic illness now 7.0 needs 1 unit of blood Coumadin treatment Plan: IV abx Accuchecks with SSI Novolog but decreasing the home dose of insulin due to hypoglycemia Home meds Monitor creatinine Nebs BiPAP prn Prognosis guarded SASCHA MORTENSEN DO Aug 24, 2017 11:20
--- NOTE | 2017-08-24 11:21 | Cardiology Progress Note ---
Subjective Date Seen by Provider: Aug 24, 2017 Time Seen by Provider: 11:19 Subjective/Events-last exam patient is laying down in bed, reporting improvement, breathing is better. Denied any chest pain. Review of Systems General: No Chills, No Night Sweats, No Fatigue, No Malaise, No Appetite, No Other HEENT: No Head Aches, No Visual Changes, No Eye Pain, No Ear Pain, No Dysphasia , No Sinus Congestion, No Post Nasal Drip, No Sore Throat, No Other Pulmonary: Dyspnea, No Cough, No Pleuritic Chest Pain, No Other Cardiovascular: Edema, No: Chest Pain, Palpitations, Orthopnea, Paroxysmal Noc. Dyspnea, Lt Headedness, Other Objective-Cardiology Exam Last Set of Vital Signs Vital Signs 08/23/17 08/24/17 03:16 08:12 Temp 97.8 Pulse 102 Resp 20 B/P (MAP) 121/70 Pulse Ox 97 O2 Delivery Nasal Cannula O2 Flow Rate 6.00 FiO2 45 Capillary Refill : Less Than 3 Seconds I&O Intake and Output 08/25/17 00:00 Intake Total 600 ml Output Total 300 ml Balance 300 ml Intake Oral 600 ml Output Urine Total 300 ml # Voids 1 # Bowel Movements 1 General: Alert, Oriented X3, Cooperative, No Acute Distress HEENT: Atraumatic, PERRLA Lungs: Clear to Auscultation, Normal Air Movement Heart: Regular Rate, Normal S1, Normal S2, No Murmurs Abdomen: Normal Bowel Sounds, Soft, No Tenderness, No Hepatosplenomegaly, No Masses Extremities: No Cyanosis, No Edema, No Tenderness/Swelling, Other (foot ulcers bilaterally) Skin: No Rashes, No Breakdown, No Significant Lesion Neuro: Normal Gait, Normal Speech, Strength at 5/5 X4 Ext, Normal Tone, Sensation Intact Psych/Mental Status: Mental Status NL, Mood NL Results Lab Laboratory Tests 08/24/17 04:24 A/P-Cardiology Admission Diagnosis Shortness of breath Acute excess her vision of COPD Fluid overload Peripheral arterial disease Assessment/Plan Shortness of breath, fluid overload, improved at this time. Continue on current treatment and monitor Anemia, significantly worse, multifactorial. Patient is receiving 1 unit today and I will monitor his H&H. History of COPD, Obstructive sleep apnea, status post prolonged respiratory failure and transferred to [facility]. Recent hospitalization for sepsis at [facility]. Nausea and loss of appetite. Reporting improvement. Continue to monitor. Permanent atrial fibrillation. [id number] score is 4, yearly risk of stroke without oral anticoagulation is 4 percent. Maintained on Coumadin. Continue on current medications and monitor. Dyspnea on exertion, chronic. Limited exercise ability, advanced COPD, oxygen dependent. Generalized weakness. History of chronic left ventricular diastolic dysfunction, ejection fraction 60 percent in September 2016. Hypertensive heart disease. Continue to monitor. Hypertension, restart home medication monitor blood pressure Questionable coronary artery disease, patient has multiple risk factors, has been refusing to have a stress test. Continue to monitor Peripheral vascular disease, extensive disease, multiple interventions in the past, last cardiac catheterization was done earlier last week showin. Severe peripheral arterial disease below the knee on the right side, successful balloon angioplasty to the tibioperoneal trunk and the posterior tibial artery with improvement of total occlusion and into patent artery with good flow, the peroneal artery is occluded reconstructed by collaterals. 2. Moderate disease at the anterior tibial artery on the right side with good flow down to the foot 3. Severe stenosis at the proximal portion of the left SFA 4. Severe stenosis at the left side below the knee with single-vessel runoff down to the foot Chronic venous insufficiency, seen by Dr. Castro in [place], status post ablation by Dr. Castro on the right side. Hyperlipidemia, lipid profile was done on June 18, 2017 showing total cholesterol 110, triglyceride 78, HDL 19, LDL 78. Continue current medications and monitor Diabetes mellitus. Followed and managed by primary care physician. Continue to monitor Diabetic neuropathy. Chronic renal insufficiency, continue to monitor renal function. Mild bilateral carotid stenosis, last ultrasound was done in May 2017, continue to monitor. Clinical Quality Measures DVT/VTE Risk/Contraindication: Risk Factor Score Per Nursin RFS Level Per Nursing on Admit: 4+=Very High KEELEY ROSSI MD Aug 24, 2017 11:21
[2017-08-24] MEDS ORDERED: inSUlin Protamine/ASPart 70/30 1 UNIT/0.01 ML DOSE SQ SCH ×2 (12:00→21:00)
[2017-08-24] MEDS: UMECLIDINIUM BROMIDE (INCRUSE ELLIPTA) 7'S IH SCH (14:00)
[2017-08-24] MEDS: ASPIRIN E.C. 81 MG (ECOTRIN) TAB PO SCH (14:48)
[2017-08-24] MEDS: warFARin 5 MG (COUMADIN) TAB PO SCH (20:06)
[2017-08-25 00:22] VITALS: BP 132/80
[2017-08-25] MEDS: RT-ALBUTEROL/IPRATROPIUM 3 ML (DUONEB) VIAL INH SCH ×2 (01:39→07:28)
[2017-08-25 04:10] VITALS: BP 136/78
[2017-08-25] MEDS: PIPERACILLIN/TAZOBACTAM 4.5 GM/NS100 ML IVPB IV SCH ×2 (04:30)
[2017-08-25 05:05] VITALS: BP 136/78
[2017-08-25] MEDS: inSUlin ASPART (NovoLOG) 1 UNIT/0.01 ML (CHARGE PER UNIT) SC SCH (05:23)
[2017-08-25] MEDS: CATHETER FLUSH 10 ML SYR IV SCH (05:23)
[2017-08-25 06:10] LABS: BASOPHILS % (AUTO) 0 % (0-10); EOSINOPHILS # (AUTO) 0.3 10^3/uL (0.0-0.3); EOSINOPHILS % (AUTO) 4 % (0-10); LYMPHOCYTES # (AUTO) 1.1 X 10^3 (1.0-4.0); LYMPHOCYTES % (AUTO) 13 % (12-44); MEAN CORPUSCULAR HEMOGLOBIN 28 PG (25-34); MEAN CORPUSCULAR HGB CONC 33 G/DL (32-36); MEAN CORPUSCULAR VOLUME 84 FL (80-99); MEAN PLATELET VOLUME 10.6 FL (7.4-10.4); MONOCYTES % (AUTO) 12 % (0-12); NEUTROPHILS # (AUTO) 6.3 X 10^3 (1.8-7.8); NEUTROPHILS % (AUTO) 72 % (42-75); PLATELET COUNT 157 10^3/uL (130-400); RED BLOOD COUNT 3.37 10^6/uL (4.35-5.85); RED CELL DISTRIBUTION WIDTH 15.9 % (10.0-14.5); WHITE BLOOD COUNT 8.8 10^3/uL (4.3-11.0)
[2017-08-25] MEDS: KCL 20 MEQ TAB (K-DUR) PO SCH (06:16)
[2017-08-25] MEDS: FUROSEMIDE 40 MG/4 ML INJ (LASIX) IVP SCH (06:16)
[2017-08-25 06:23] LABS: INR 1.2 (0.8-1.4); PROTHROMBIN TIME PATIENT 15.7 SEC (12.2-14.7)
[2017-08-25 06:31] LABS: ALBUMIN 2.8 GM/DL (3.2-4.5); CALCIUM 9.2 MG/DL (8.5-10.1); CREATININE SERUM 1.66 MG/DL (0.60-1.30); POTASSIUM 3.6 MMOL/L (3.6-5.0); TOTAL PROTEIN 6.8 GM/DL (6.4-8.2)
[2017-08-25] MEDS: UMECLIDINIUM BROMIDE (INCRUSE ELLIPTA) 7'S IH SCH (07:29)
[2017-08-25 08:14] VITALS: BP 153/80
--- NOTE | 2017-08-25 08:32 | Progress Note (SOAP) ---
Subjective Subjective Date Seen by Provider: Aug 25, 2017 Time Seen by Provider: 08:27 81 yo M admitted for pneumonia over the weekend- Also noted to have acute kidney injury. Pt reports he is doing well now near baseline. Back on 4L oxygen. Eating drinking without difficulty Denies any chest pain or trouble breathing. He thinks he will hold off on any more of the leg blood vessel interventions. Review of Systems General: No Chills, No Night Sweats, No Fatigue, No Malaise, No Appetite, No Other HEENT: No Head Aches, No Visual Changes, No Eye Pain, No Ear Pain, No Dysphasia , No Sinus Congestion, No Post Nasal Drip, No Sore Throat, No Other Pulmonary: Dyspnea, No Cough, No Pleuritic Chest Pain, No Other Cardiovascular: Edema, No: Chest Pain, Palpitations, Orthopnea, Paroxysmal Noc. Dyspnea, Lt Headedness, Other Gastrointestinal: No: Nausea, Vomiting, Abdominal Pain, Diarrhea, Constipation , Melena, Hematochezia Genitourinary: No Dysuria, No Frequency, No Incontinence, No Hematuria, No Retention Musculoskeletal: No: neck pain, shoulder pain, arm pain, back pain, hand pain, leg pain, foot pain Neurological: Weakness, No: Numbness, Incoordination, Change in speech, Confusion, Seizures All Other Systems Reviewed All Other Systems Reviewed: Yes Objective Exam Vital Signs Vital Signs Date Time Temp Pulse Resp B/P (MAP) Pulse Ox O2 Delivery O2 Flow Rate FiO2 08/25/17 08:14 97.0 82 24 153/80 92 Nasal Cannula 6.00 08/25/17 08:00 High Flow N/C 4.00 08/25/17 07:28 93 High Flow N/C 4.00 08/25/17 05:05 98.0 70 23 136/78 99 Nasal Cannula 6.00 08/25/17 04:10 98.0 70 23 136/78 99 Nasal Cannula 6.00 08/25/17 01:41 85 23 98 35.00 08/25/17 01:00 67 08/25/17 00:22 98.2 72 24 132/80 100 NIV Bilevel 08/24/17 21:04 99 High Flow N/C 4.00 08/24/17 21:00 High Flow N/C 4.00 08/24/17 19:59 96.8 84 20 163/81 99 Nasal Cannula 6.00 08/24/17 19:00 81 08/24/17 18:18 98 High Flow N/C 4.00 08/24/17 16:13 97.2 73 16 137/79 97 Nasal Cannula 6.00 08/24/17 14:55 98.0 80 20 120/70 96 Nasal Cannula 4.00 08/24/17 14:01 93 High Flow N/C 4.00 08/24/17 13:00 85 08/24/17 12:00 98.2 88 20 98 Nasal Cannula 5.00 08/24/17 11:45 97.7 79 20 128/62 98 Nasal Cannula 3.00 08/24/17 11:41 97.7 79 20 128/62 98 Nasal Cannula 6.00 08/24/17 09:00 95 High Flow N/C 4.00 08/24/17 09:00 Nasal Cannula 5.00 General Appearance: No Apparent Distress, WD/WN, No Anxious, Obese HEENT: PERRL/EOMI, Normal ENT Inspection, Pharynx Normal, Other (dentures ) Neck: Full Range of Motion, Normal Inspection, Non Tender, Supple Respiratory: Chest Non Tender, Normal Breath Sounds, No Accessory Muscle Use, No Respiratory Distress, Decreased Breath Sounds (bases), Other Cardiovascular: Other (regular rate, irregular rhythm) Gastrointestinal: Normal Bowel Sounds, No Organomegaly, No Pulsatile Mass, Non Tender, Soft Rectal: Deferred Back: Normal Inspection, No CVA Tenderness, No Vertebral Tenderness Extremity: Normal Capillary Refill, Normal Inspection, Normal Range of Motion, Non Tender, No Calf Tenderness, Pedal Edema (trace) Neurologic/Psychiatric: Alert, Oriented x3, No Motor/Sensory Deficits, Normal Mood/Affect Skin: Normal Color, Warm/Dry Lymphatic: No Adenopathy Results Lab Laboratory Tests 08/24/17 11:35: Glucometer 177H 08/24/17 15:36: Glucometer 222H 08/24/17 20:28: Glucometer 170H 08/25/17 05:21: Glucometer 159H 08/25/17 05:50: White Blood Count 8.8, Red Blood Count 3.37L, Hemoglobin 9.3#L, Hematocrit 28L, Mean Corpuscular Volume 84, Mean Corpuscular Hemoglobin 28, Mean Corpuscular Hemoglobin Concent 33, Red Cell Distribution Width 15.9H, Platelet Count 157, Mean Platelet Volume 10.6H, Neutrophils (%) (Auto) 72, Lymphocytes (%) (Auto) 13 , Monocytes (%) (Auto) 12, Eosinophils (%) (Auto) 4, Basophils (%) (Auto) 0, Neutrophils # (Auto) 6.3, Lymphocytes # (Auto) 1.1, Monocytes # (Auto) 1.0, Eosinophils # (Auto) 0.3, Basophils # (Auto) 0.0, Prothrombin Time 15.7H, INR Comment 1.2, Sodium Level 138, Potassium Level 3.6, Chloride Level 105, Carbon Dioxide Level 24, Anion Gap 9, Blood Urea Nitrogen 33H, Creatinine 1.66H, Estimat Glomerular Filtration Rate 40, BUN/Creatinine Ratio 20, Glucose Level 146H, Calcium Level 9.2, Total Bilirubin 1.0, Aspartate Amino Transf (AST/SGOT) 15, Alanine Aminotransferase (ALT/SGPT) 14, Alkaline Phosphatase 76, Total Protein 6.8, Albumin 2.8L Microbiology 08/22/17 Blood Culture - Preliminary, Resulted No growth Assessment/Plan Assessment/Plan Assessment/Plan 81 yo M Acute respiratory distress due to likely pulmonary edema- and not pneumonia- interstitial- on zosyn; discontinuing zosyn today. continue IS and RT. Acute on chronic kidney failure, stage III- Cr improving. PO hydration PAD- s/p procedure with Dr. Niño last week. COPD- on baseline oxygen 4L NC VIPIN- continue home PAP settings DMII, insulin dependent- continue insulin 70/30 hga1c 6 on 05/30/17 chronic anemia multifactorial- s/p 1 pRBC as his hgb was down to 7- will monitor h/h. permanent atrial fibrillation- on warfarin Dispo: pt is at baseline with oxygen- kidneys are improving- may discharge to home from my standpoint. follow up at [facility] in 2 weeks. Problems: Clinical Quality Measures DVT/VTE Risk/Contraindication: Risk Factor Score Per Nursin RFS Level Per Nursing on Admit: 4+=Very High RUBEN SANCHEZ MD Aug 25, 2017 8:32 am
--- NOTE | 2017-08-25 08:35 | Cardiology Progress Note ---
Subjective Date Seen by Provider: Aug 25, 2017 Time Seen by Provider: 08:32 Subjective/Events-last exam Patient is sitting up in bed, no new complaints. Denies any CP or increased dyspnea. Asking to go home. Review of Systems General: No Night Sweats, No Fatigue, No Malaise HEENT: No Visual Changes, No Dysphasia Pulmonary: Dyspnea, No Cough Cardiovascular: Edema, No: Chest Pain, Palpitations, Paroxysmal Noc. Dyspnea Gastrointestinal: No: Nausea, Vomiting, Abdominal Pain Genitourinary: No Dysuria, No Frequency Musculoskeletal: No: neck pain, back pain Neurological: No: Weakness, Numbness Objective-Cardiology Exam Last Set of Vital Signs Vital Signs 08/23/17 08/25/17 03:16 08:14 Temp 97.0 Pulse 82 Resp 24 B/P (MAP) 153/80 Pulse Ox 92 O2 Delivery Nasal Cannula O2 Flow Rate 6.00 FiO2 45 Capillary Refill : Less Than 3 Seconds I&O Intake and Output 08/26/17 00:00 Intake Total 250 ml Output Total 150 ml Balance 100 ml Intake Oral 150 ml IV Total 100 ml Output Urine Total 150 ml # Voids 1 General: Alert, Oriented X3, Cooperative, No Acute Distress HEENT: Atraumatic, PERRLA Lungs: Clear to Auscultation, Normal Air Movement Heart: Regular Rate, Normal S1, Normal S2, No Murmurs Abdomen: Normal Bowel Sounds, Soft, No Tenderness, No Hepatosplenomegaly, No Masses Extremities: No Cyanosis, No Edema, No Tenderness/Swelling, Other (foot ulcers bilaterally) Skin: No Rashes, No Breakdown, No Significant Lesion Neuro: Normal Gait, Normal Speech, Strength at 5/5 X4 Ext, Normal Tone, Sensation Intact Psych/Mental Status: Mental Status NL, Mood NL Results Lab Laboratory Tests 08/25/17 05:50 A/P-Cardiology Admission Diagnosis Shortness of breath Acute excess her vision of COPD Fluid overload Peripheral arterial disease Assessment/Plan Shortness of breath, fluid overload, improved at this time. Continue on current treatment and monitor Anemia, multifactorial. Received blood transfusion yesterday. Continue to monitor H/H. History of COPD, Obstructive sleep apnea, status post prolonged respiratory failure and transferred to [facility]. Recent hospitalization for sepsis at [facility]. Nausea and loss of appetite. Reporting improvement. Continue to monitor. Permanent atrial fibrillation. [id number] score is 4, yearly risk of stroke without oral anticoagulation is 4 percent. Maintained on Coumadin. Continue on current medications and monitor. Dyspnea on exertion, chronic. Limited exercise ability, advanced COPD, oxygen dependent. Generalized weakness. History of chronic left ventricular diastolic dysfunction, ejection fraction 60 percent in September 2016. Hypertensive heart disease. Continue to monitor. Hypertension, restart home medication monitor blood pressure Questionable coronary artery disease, patient has multiple risk factors, has been refusing to have a stress test. Continue to monitor Peripheral vascular disease, extensive disease, multiple interventions in the past, last cardiac catheterization was done earlier last week showin. Severe peripheral arterial disease below the knee on the right side, successful balloon angioplasty to the tibioperoneal trunk and the posterior tibial artery with improvement of total occlusion and into patent artery with good flow, the peroneal artery is occluded reconstructed by collaterals. 2. Moderate disease at the anterior tibial artery on the right side with good flow down to the foot 3. Severe stenosis at the proximal portion of the left SFA 4. Severe stenosis at the left side below the knee with single-vessel runoff down to the foot Chronic venous insufficiency, seen by Dr. Castro in [place], status post ablation by Dr. Castro on the right side. Hyperlipidemia, lipid profile was done on June 18, 2017 showing total cholesterol 110, triglyceride 78, HDL 19, LDL 78. Continue current medications and monitor Diabetes mellitus. Followed and managed by primary care physician. Continue to monitor Diabetic neuropathy. Chronic renal insufficiency, continue to monitor renal function. 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 Mild bilateral carotid stenosis, last ultrasound was done in May 2017, continue to monitor. Clinical Quality Measures DVT/VTE Risk/Contraindication: Risk Factor Score Per Nursin RFS Level Per Nursing on Admit: 4+=Very High JACQUELINE SHARPE Aug 25, 2017 08:35
[2017-08-25] MEDS: DIGOXIN 0.125 MG (LANOXIN) TAB PO SCH (08:56)
[2017-08-25] MEDS: LACTOBACILLUS Acidoph/Bulgar (LACTINEX/FLORANEX) TAB PO SCH (08:56)
[2017-08-25] MEDS: CLOPIDOGREL 75 MG (PLAVIX) TABLET PO SCH (08:56)
[2017-08-25] MEDS: CARVEDILOL 12.5 MG (COREG) TABLET PO SCH (08:56)
[2017-08-25] MEDS: LOSARTAN 25 MG (COZAAR) TAB PO SCH (08:56)
[2017-08-25] MEDS: GABAPENTIN 300 MG (NEURONTIN) CAP PO SCH (08:56)
--- NOTE | 2017-08-25 09:00 | Physical Therapy Evaluation ---
PT Evaluation-General Medical Diagnosis Admission Date Aug 22, 2017 at 23:30 Medical Diagnosis: Pneumonia basilar, heart failure, acute COPD Onset Date: Aug 23, 2017 Therapy Diagnosis Therapy Diagnosis: weakness Height/Weight Height (Feet): 5 Height (Inches): 10.00 Weight (Pounds): 231 Weight (Ounces): 5.0 Precautions Precautions/Isolations: Contact Isolation, Fall Prevention, Standard Precautions Weight Bear Status Right Lower Extremity: Right Weight Bearing/Tolerated Left Lower Extremity: Left Weight Bearing/Tolerated Referral Physician: Barrett Reason for Referral: Evaluation/Treatment Medical History Pertinent Medical History: Atrial Fib, COPD, DM, HTN, Macular Degenertion, Neuropathy, PVD, Smoking Social History Home: Single Level Current Living Status: Spouse Entry Into Home: Ramp Prior/Core FIM Prior Level of Function Functional [place] Measure 0=Not Assessed/NA 4=Minimal Assistance 1=Total Assistance 5=Supervision or Setup 2=Maximal Assistance 6=Modified [place] 3=Moderate Assistance 7=Complete [place] Bed Mobility: 7 Transfers (B,C,W/C) (FIM): 7 Gait: 6 Locomotion: 6 Patient ambulates with FWW in the home. PT Evaluation-Current Subjective Patient states his status has improved since admission this weekend. He reports being very simple minded recently with not much remembrance of recent events. He states that he has not gotten up much since admittance into hospital and agrees to PT eval. Pain Numeric Pain Scale: 0-No Pain Location: No Pain Reported Pt/Family Goals Patient wishes to return to the home. Objective Patient Orientation: Person, Place, Situation Problem Solving: Fair Attachments: Oxygen, IV 4.0 L of O2 at rest ROM/Strength ROM Upper Extremities WNL ROM Lower Extremities WNL Strength Upper Extremities WNL Strength Lower Extremities WNL Integumentary/Posture Integumentary diabetic wound on plantar surface of L foot Bowel Incontinence: No Bladder Incontinence: Yes Neuromuscular (Tone, Coordination, Reflexes) normal Sensory Vision: Functional Hearing: Functional Sensation Right Upper Extremit: Impaired Sensation Left Upper Extremity: Impaired Sensation Right Lower Extremit: Impaired Sensation Left Lower Extremity: Impaired Sensation Lower Extremities Accuracy of dull touch throughout bilateral LE is spotty Transfers Functional [place] Measure 0=Not Assessed/NA 4=Minimal Assistance 1=Total Assistance 5=Supervision or Setup 2=Maximal Assistance 6=Modified [place] 3=Moderate Assistance 7=Complete [place] Transfers (B, C, W/C) (FIM): 4 Scootin Rollin Supine to/from Sit: 4 Sit to/from Stand: 5 Patient required slight assistance from PT to rise from supine. Patient was SBA for all other bed transfers. Gait Mode of Locomotion: Walk Anticipated Mode of Locomotion: Walk Gait (FIM): 4 Distance: 200' Gait Level of Assist: 4 Gait Persons Needed: 1 Gait Assistive Device: FWW Comments/Gait Description Patient required CGA due to instability associated with neuropathy in LEs. Patient walks with normal reciprocal gait pattern a majority of the time. Patient started to experience some noticeable dyspnea. Balance Sitting Static: Normal Sitting Dynamic: Normal Standing Static: Fair Standing Dynamic: Fair Assessment/Needs Patient is experiencing improved status since admission into the hospital. Patient will be seen once a day to promote physical activity to improve shortness of breath upon exertion. Patient has a good outlook for recovery of returning to the home with supportive spouse. Rehab Potential: Good PT Group Home Goals Pulp Grinder Feeder Goals PT Group Home Goals Time Frame: Sep 01, 2017 Transfers (B,C,W/C) (FIM): 5 Gait (FIM): 5 Distance: >300' Gait Level of Assist: 5 Gait Assistive Device: FWW PT Plan Problem List Problem List: Activity Tolerance, Functional Strength, Safety, Balance, Gait, Transfer, Bed Mobility Treatment/Plan Treatment Plan: Continue Plan of Care Treatment Plan: Bed Mobility, Education, Functional Activity Amanda, Functional Strength, Gait, Therapeutic Exercise Treatment Duration: Sep 01, 2017 Frequency: 6 times per week Estimated Hrs Per Day: .25 hour per day Patient and/or Family Agrees t: Yes Safety Risks/Education Patient Education: Gait Training, Safety Issues Teaching Recipient: Patient Teaching Methods: Demonstration, Discussion Response to Teaching: Verbalize Understanding, Return Demonstration Discharge Recommendations Therapy D/C Recommendations: Home w/ Family Support Equpiment Recommendations-D/C: Front Wheeled Walker Time/GCodes Time In: 820 Time Out: 845 Total Billed Treatment Time: 25 Total Billed Treatment 1 visit EVM 25 min NIKHIL LEBLANC PT Aug 25, 2017 09:00
--- NOTE | 2017-08-25 09:21 | Cardiology Discharge Summary ---
Diagnosis/Chief Complaint Date of Admission Aug 22, 2017 at 23:30 Date of Discharge August 25, 2017 Admission Diagnosis Shortness of breath Acute exacerbation of COPD Fluid overload Peripheral arterial disease Discharge Diagnosis shortness of breath Acute exacerbation of COPD Fluid overload Peripheral arterial disease Chief Complaint/HPI Chief Complaint/HPI 81 years old gentleman with extensive history of peripheral Disease and coronary artery disease patient renal insufficiency. Patient underwent angiogram last week, received large amount of IV fluid pre-and post intervention and educated on consuming large amount of fluid. He has been having nausea and vomiting, increasing shortness of breath which became significantly worse yesterday, brought to the emergency room. Has been having mild chest pain. No fever or chills. No palpitation. No pedal edema. Patient was admitted, diuresed, renal function became slightly worse, noted to have worsening anemia, received one unit of packed RBCs, feeling better today. Asking to go home. Breathing is better. Discharge Summary Hospital Course Hospital Course Shortness of breath, fluid overload, secondary to aggressive IV fluid hydration post angiogram and contrast, responded to diuretics well. No signs of pneumonia. Received antibiotics empirically, feeling better. Planning for discharge today Echocardiogram showed normal left ventricular size and systolic function with ejection fraction 55-60 percent, left atrial dilation. Pulmonary artery pressure of 40 mmHg, probably acute left ventricular diastolic dysfunction with fluid overload secondary to atrial fibrillation and hypertension Anemia, multifactorial. Received blood transfusion yesterday. Continue to monitor H/H as an outpatient History of COPD, Obstructive sleep apnea, status post prolonged respiratory failure and transferred to [facility]. Recent hospitalization for sepsis at [facility]. Nausea and loss of appetite. Reporting improvement. Continue to monitor. Permanent atrial fibrillation. [id number] score is 4, yearly risk of stroke without oral anticoagulation is 4 percent. Maintained on Coumadin. Continue on current medications and monitor. Dyspnea on exertion, chronic. Limited exercise ability, advanced COPD, oxygen dependent. Generalized weakness. History of chronic left ventricular diastolic dysfunction, ejection fraction 60 percent in September 2016. Hypertensive heart disease. Continue to monitor. Hypertension, restart home medication monitor blood pressure Questionable coronary artery disease, patient has multiple risk factors, has been refusing to have a stress test. Continue to monitor Peripheral vascular disease, extensive disease, multiple interventions in the past, last cardiac catheterization was done earlier last week showin. Severe peripheral arterial disease below the knee on the right side, successful balloon angioplasty to the tibioperoneal trunk and the posterior tibial artery with improvement of total occlusion and into patent artery with good flow, the peroneal artery is occluded reconstructed by collaterals. 2. Moderate disease at the anterior tibial artery on the right side with good flow down to the foot 3. Severe stenosis at the proximal portion of the left SFA 4. Severe stenosis at the left side below the knee with single-vessel runoff down to the foot At this point I am hesitant to perform a procedure on his left lower extremity due to his multiple cor morbid condition and renal insufficiency in addition to the anemia and intolerance to IV fluid, patient is scheduled to see a drawing operator. Chronic venous insufficiency, seen by Dr. Castro in [place], status post ablation by Dr. Castro on the right side. Hyperlipidemia, lipid profile was done on June 18, 2017 showing total cholesterol 110, triglyceride 78, HDL 19, LDL 78. Continue current medications and monitor Diabetes mellitus. Followed and managed by primary care physician. Continue to monitor Diabetic neuropathy. Chronic renal insufficiency, continue to monitor renal function. Has follow up appt with drawing operator on . Mild bilateral carotid stenosis, last ultrasound was done in May 2017, continue to monitor. Labs Laboratory Tests 08/22/17 21:55: White Blood Count 13.5H, Red Blood Count 3.19L, Hemoglobin 8.8L, Hematocrit 27L , Red Cell Distribution Width 16.1H, Neutrophils (%) (Auto) 77H, Lymphocytes (% ) (Auto) 7L, Monocytes (%) (Auto) 16H, Neutrophils # (Auto) 10.3H, Monocytes # ( Auto) 2.2H, Prothrombin Time 15.9H, Activated Partial Thromboplast Time 43H, Blood Urea Nitrogen 20H, Creatinine 1.50H, Glucose Level 208H, Total Bilirubin 1.2H, C-Reactive Protein High Sensitivity 11.40H 08/22/17 21:59: B-Type Natriuretic Peptide 667.7H 08/22/17 22:30: 08/23/17 05:27: Glucometer 172H 08/23/17 10:48: Glucometer 181H 08/23/17 16:19: Glucometer 235H 08/23/17 20:17: Glucometer 250H 08/24/17 04:24: Red Blood Count 2.56L, Hemoglobin 7.0L, Hematocrit 22L, Red Cell Distribution Width 16.2H, Mean Platelet Volume 10.5H, Monocytes (%) (Auto) 17H, Monocytes # ( Auto) 1.5H, Prothrombin Time 17.7H, INR Comment 1.5H, Potassium Level 3.4L, Blood Urea Nitrogen 29H, Creatinine 1.81H, Glucose Level 59*L, Total Bilirubin 1.3H, B-Type Natriuretic Peptide 199.8H, Total Protein 6.3L, Albumin 2.7L 08/24/17 06:06: Glucometer 111H 08/24/17 11:35: Glucometer 177H 08/24/17 15:36: Glucometer 222H 08/24/17 20:28: Glucometer 170H 08/25/17 05:21: Glucometer 159H 08/25/17 05:50: Red Blood Count 3.37L, Hemoglobin 9.3#L, Hematocrit 28L, Red Cell Distribution Width 15.9H, Mean Platelet Volume 10.6H, Prothrombin Time 15.7H, Blood Urea Nitrogen 33H, Creatinine 1.66H, Glucose Level 146H, Albumin 2.8L Procedures None. Discharge Physical Examination Allergies: Coded Allergies: sulfamethoxazole (Verified Allergy, Mild, RASH, 12/26/16) trimethoprim (Verified Allergy, Mild, RASH, 12/26/16) Vitals & I&Os Vital Signs Date Time Temp Pulse Resp B/P (MAP) Pulse Ox O2 Delivery O2 Flow Rate FiO2 08/25/17 08:14 97.0 82 24 153/80 92 Nasal Cannula 6.00 08/23/17 03:16 45 General Appearance: Alert, Oriented X3, Cooperative, No Acute Distress HEENT: Atraumatic, PERRLA Respiratory: Normal Air Movement, Other (Bilateral rhonchi) Cardiovascular: Normal S1, Normal S2, No Murmurs, Other (irregular rhythm) Abdominal: Normal Bowel Sounds, Soft, No Tenderness, No Hepatosplenomegaly, No Masses Extremities: No Tenderness/Swelling, Other Skin: No Rashes, Other (ulcer on the heel on the left, on the foot on the right ) Neuro: Normal Gait, Normal Speech, Normal Tone, Sensation Intact, Reflexes 2+ Psych/Mental Status: Mental Status NL, Mood NL Discharge Home Medications Reviewed and agree with Discharge Medication list on patient's Discharge Instruction sheet Instructions to Patient/Family Please see electronic discharge instructions given to patient. Clinical Quality Measures DVT/VTE Risk/Contraindication: Risk Factor Score Per Nursin RFS Level Per Nursing on Admit: 4+=Very High KEELEY ROSSI MD Aug 25, 2017 09:21
--- NOTE | 2017-08-25 09:23 | Diagnostic Imaging Report ---
INDICATION: Dyspnea, pneumonia. TECHNIQUE: Two view chest at 7:37 AM. CORRELATION STUDY: 08/24/2017. FINDINGS: The heart size is enlarged. The vasculature is slightly prominent but less severe from the prior study. Scattered pulmonary parenchymal densities persist within both lung [place], right greater than left. There is slightly more nodular density in the left costophrenic angle. Likely old healed right-sided posterolateral rib fracture deformities are noted. IMPRESSION: The cardiac enlargement and vascular congestion have improved. There are scattered pulmonary parenchymal densities, edema versus infiltrate. Dictated by: Dictated on workstation # [id number]
[2017-08-25 10:07] LABS: BILIRUBIN,URINE NEGATIVE (NEGATIVE); KETONES,URINE NEGATIVE (NEGATIVE); LEUKOCYTE ESTERASE ,URINE 2+ (NEGATIVE); NITRITE,URINE NEGATIVE (NEGATIVE); PH,URINE 6 (5-9); PROTEIN,URINE 3+ (NEGATIVE); UROBILINOGEN,URINE NORMAL (NORMAL)
[2017-08-25 10:25] VITALS: BP 153/80
[2017-08-25 10:26] LABS: PROTEIN/CREATININE RATIO 3.17
[2017-08-25] MEDS ORDERED: AMOXICILLIN 500 MG (POLYMOX) CAP PO SCH (21:00)
[2017-08-26 07:00] LABS: CALCIUM PARA THYROID HORMONE 8.7 mg/dL (8.5-10.5)
--- NOTE | 2017-09-04 09:01 | Physician Query Clarification ---
PQ-Intro New Diagnosis Admission/Discharge Admission Date: Aug 22, 2017 at 23:30 Discharge Date: Aug 25, 2017 at 10:25 The medical record reflects the following clinical scenario: History/Risk Factors: Fluid Overload Acute heart failure per ED physician Atrial Fibrillation Clinical Findings: BNP 667.7 EF 55-60% Treatment:IV Lasix Question: What condition best reflects the above clinical scenario? Your discharge summary documented probably acute left ventricular diastolic dysfunction with fluid overload secondary to atrial fibrillation and hypertension. Please clarify which should be coded . Please document below. 1. Acute on chronic diastolic congestive heart failure with hypertensive cardiorenal disease. 2. Acute left ventricular diastolic dysfunction with fluid overload without acute congestive heart failure. 3. Other, with explanation of the clinical findings. 4. Clinically undetermined, no explanation for the clinical findings. PHYSICIAN RESPONSE What condition reflects above: 1 In responding to this query, please exercise your independent professional judgment. The purpose of this communication is to more accurately reflect the complexity of your patients condition. The fact that a question is asked does not imply that any particular answer is desired or expected. Thank you for your timely response to this clarification. Requestors name: Uma Figueroa [facility] Phone # ext [phone] or [phone] THIS PHYSICIAN QUERY FORM IS A PERMANENT PART OF THE MEDICAL RECORD UMA FIGUEROA Sep 04, 2017 09:01 KEELEY ROSSI MD Sep 04, 2017 14:31
--- NOTE | 2017-09-04 09:11 | Physician Query Clarification ---
PQ-Conflicting Diagnosis Admission/Discharge Admission Date: Aug 22, 2017 at 23:30 Discharge Date: Aug 25, 2017 at 10:25 The medical record reflects the following clinical scenario: History/Risk Factors: Hypertensive cardiorenal disease Fluid overload Clinical Findings:Creatinine of 1.50 on admission rising to 1.81, Estimated GFR of 45 on admission dropping to 36. Treatment:IV Sodium Chloride/PO hydration. Question: Do you agree with the impression of the Acute on chronic renal failure per Dr. Hugo Alexander . Please document a response below. PHYSICIAN RESPONSE Do you agree w/Consulting Dx?: Yes In responding to this query, please exercise your independent professional judgment. The purpose of this communication is to more accurately reflect the complexity of your patients condition. The fact that a question is asked does not imply that any particular answer is desired or expected. Thank you for your timely response to this clarification. Requestors name: Uma Figueroa [facility] Phone # ext [phone] or [phone] THIS PHYSICIAN QUERY FORM IS A PERMANENT PART OF THE MEDICAL RECORD UMA FIGUEROA Sep 04, 2017 09:11 KEELEY ROSSI MD Sep 04, 2017 14:32
== END 2017-08-25 10:25 | disposition home or self-care (01) | DRG 291 ==
LOC: EDUNIT# 21:43 → ER 21:44 → 4TH 23:30
PROVIDERS: ADMIT Internal Medicine Cardiovascular Disease; ATTEND Internal Medicine Cardiovascular Disease
DX: I13.0 Hypertensive heart and chronic kidney disease with heart failure and stage 1 through stage 4 chronic kidney disease, or unspecified chronic kidney disease (principal); I50.33 Acute on chronic diastolic (congestive) heart failure; N18.3 Chronic kidney disease, stage 3 (moderate); E87.79 Other fluid overload; N17.9 Acute kidney failure, unspecified; J44.1 Chronic obstructive pulmonary disease with (acute) exacerbation; I48.2 Chronic atrial fibrillation; J81.1 Chronic pulmonary edema; R06.03 Acute respiratory distress; I70.203 Unspecified atherosclerosis of native arteries of extremities, bilateral legs; G47.33 Obstructive sleep apnea (adult) (pediatric); D63.8 Anemia in other chronic diseases classified elsewhere; E11.40 Type 2 diabetes mellitus with diabetic neuropathy, unspecified; E11.649 Type 2 diabetes mellitus with hypoglycemia without coma; I25.10 Atherosclerotic heart disease of native coronary artery without angina pectoris; I87.2 Venous insufficiency (chronic) (peripheral); I65.23 Occlusion and stenosis of bilateral carotid arteries; F03.90 Unspecified dementia, unspecified severity, without behavioral disturbance, psychotic disturbance, mood disturbance, and anxiety; K59.09 Other constipation; R63.0 Anorexia; E66.9 Obesity, unspecified; E78.5 Hyperlipidemia, unspecified; E78.00 Pure hypercholesterolemia, unspecified; K21.9 Gastro-esophageal reflux disease without esophagitis; R11.2 Nausea with vomiting, unspecified; Z99.81 Dependence on supplemental oxygen; Z87.891 Personal history of nicotine dependence; Z79.01 Long term (current) use of anticoagulants; Z79.4 Long term (current) use of insulin; Z68.33 Body mass index [BMI] 33.0-33.9, adult
CPT/HCPCS: 36415; 71010; 71020; 80048; 80053; 80061; 81000; 82306; 82570; 82962; 83605; 83735; 83880; 83970; 84156; 85007; 85025; 85027; 85610; 85730; 86141; 86850; 86900; 86901; 86920; 87040; 87081; 87088; 93005; 93041; 93306; 94640; 94660; 94760; 96361; 96374; 96375

== ENCOUNTER → 2017-08-27 | Outpatient (CLI) | payer MEDICARE, BC | LOC: WOUNDCARE 09:09 | PROVIDERS: ATTEND Surgery | DX: E11.621 Type 2 diabetes mellitus with foot ulcer (principal); L97.512 Non-pressure chronic ulcer of other part of right foot with fat layer exposed; L97.522 Non-pressure chronic ulcer of other part of left foot with fat layer exposed; L97.422 Non-pressure chronic ulcer of left heel and midfoot with fat layer exposed; I70.235 Atherosclerosis of native arteries of right leg with ulceration of other part of foot; I70.244 Atherosclerosis of native arteries of left leg with ulceration of heel and midfoot | CPT/HCPCS: 11042; 15275 ==

== ENCOUNTER → 2017-09-03 | Outpatient (CLI) | payer MEDICARE, BC | LOC: WOUNDCARE 09:17 | PROVIDERS: ATTEND Surgery | DX: E11.621 Type 2 diabetes mellitus with foot ulcer (principal); L97.512 Non-pressure chronic ulcer of other part of right foot with fat layer exposed; L97.422 Non-pressure chronic ulcer of left heel and midfoot with fat layer exposed; L97.522 Non-pressure chronic ulcer of other part of left foot with fat layer exposed; I70.235 Atherosclerosis of native arteries of right leg with ulceration of other part of foot; I70.244 Atherosclerosis of native arteries of left leg with ulceration of heel and midfoot | CPT/HCPCS: 11042; 15275 ==

== ENCOUNTER → 2017-09-10 | Outpatient (CLI) | payer MEDICARE, BC | LOC: WOUNDCARE 09:01 | PROVIDERS: ATTEND Surgery | DX: E11.621 Type 2 diabetes mellitus with foot ulcer (principal); L97.422 Non-pressure chronic ulcer of left heel and midfoot with fat layer exposed; L97.512 Non-pressure chronic ulcer of other part of right foot with fat layer exposed; I70.235 Atherosclerosis of native arteries of right leg with ulceration of other part of foot; I70.244 Atherosclerosis of native arteries of left leg with ulceration of heel and midfoot | CPT/HCPCS: 11042 ==

== ENCOUNTER → 2017-09-17 | Outpatient (CLI) | payer MEDICARE, BC | LOC: WOUNDCARE 08:57 | PROVIDERS: ATTEND Surgery | DX: E11.621 Type 2 diabetes mellitus with foot ulcer (principal); L97.512 Non-pressure chronic ulcer of other part of right foot with fat layer exposed; L97.422 Non-pressure chronic ulcer of left heel and midfoot with fat layer exposed; I70.235 Atherosclerosis of native arteries of right leg with ulceration of other part of foot; I70.244 Atherosclerosis of native arteries of left leg with ulceration of heel and midfoot | CPT/HCPCS: 11042; 15275 ==

== ENCOUNTER → 2017-09-24 | Outpatient (CLI) | payer MEDICARE, BC | LOC: WOUNDCARE 08:57 | PROVIDERS: ATTEND Surgery | DX: E11.621 Type 2 diabetes mellitus with foot ulcer (principal); L97.422 Non-pressure chronic ulcer of left heel and midfoot with fat layer exposed; L97.512 Non-pressure chronic ulcer of other part of right foot with fat layer exposed; I70.235 Atherosclerosis of native arteries of right leg with ulceration of other part of foot; I70.244 Atherosclerosis of native arteries of left leg with ulceration of heel and midfoot | CPT/HCPCS: 11042; 87070; 87075; 87077; 87186; 87205 ==

== ENCOUNTER → 2017-10-01 | Outpatient (CLI) | payer MEDICARE, BC | LOC: WOUNDCARE 09:08 | PROVIDERS: ATTEND Surgery | DX: E11.621 Type 2 diabetes mellitus with foot ulcer (principal); L97.512 Non-pressure chronic ulcer of other part of right foot with fat layer exposed; L97.422 Non-pressure chronic ulcer of left heel and midfoot with fat layer exposed; I70.235 Atherosclerosis of native arteries of right leg with ulceration of other part of foot; I70.244 Atherosclerosis of native arteries of left leg with ulceration of heel and midfoot | CPT/HCPCS: 11042; 15275 ==

== ENCOUNTER → 2017-10-08 | Outpatient (CLI) | payer MEDICARE, BC ==
[~2017-10-08] MED LIST changes: -ENOX300V3 SQ; +ENOX300V4 SQ
== END ==
LOC: WOUNDCARE 09:07
PROVIDERS: ATTEND Surgery
DX: E11.621 Type 2 diabetes mellitus with foot ulcer (principal); L97.512 Non-pressure chronic ulcer of other part of right foot with fat layer exposed; L97.422 Non-pressure chronic ulcer of left heel and midfoot with fat layer exposed; I70.235 Atherosclerosis of native arteries of right leg with ulceration of other part of foot; I70.244 Atherosclerosis of native arteries of left leg with ulceration of heel and midfoot
CPT/HCPCS: 11042; 15275

== ENCOUNTER → 2017-10-17 | Outpatient (CLI) | payer MEDICARE, BC | LOC: WOUNDCARE 08:40 | PROVIDERS: ATTEND Surgery | DX: E11.621 Type 2 diabetes mellitus with foot ulcer (principal); L97.422 Non-pressure chronic ulcer of left heel and midfoot with fat layer exposed; L97.512 Non-pressure chronic ulcer of other part of right foot with fat layer exposed; I70.235 Atherosclerosis of native arteries of right leg with ulceration of other part of foot; I70.244 Atherosclerosis of native arteries of left leg with ulceration of heel and midfoot | CPT/HCPCS: 11042 ==

== ENCOUNTER → 2017-10-24 | Outpatient (CLI) | payer MEDICARE, BC | LOC: WOUNDCARE 09:08 | PROVIDERS: ATTEND Surgery | DX: E11.621 Type 2 diabetes mellitus with foot ulcer (principal); L97.422 Non-pressure chronic ulcer of left heel and midfoot with fat layer exposed; L97.512 Non-pressure chronic ulcer of other part of right foot with fat layer exposed; I70.235 Atherosclerosis of native arteries of right leg with ulceration of other part of foot; I70.244 Atherosclerosis of native arteries of left leg with ulceration of heel and midfoot | CPT/HCPCS: 11042 ==

== ENCOUNTER → 2017-10-29 | Outpatient (CLI) | payer MEDICARE, BC ==
[~2017-10-29] MED LIST changes: +HYDR-34 PO; -HYDR-3816 PO
== END ==
LOC: WOUNDCARE 09:21
PROVIDERS: ATTEND Surgery
DX: E11.621 Type 2 diabetes mellitus with foot ulcer (principal); L97.422 Non-pressure chronic ulcer of left heel and midfoot with fat layer exposed; I70.244 Atherosclerosis of native arteries of left leg with ulceration of heel and midfoot; E11.42 Type 2 diabetes mellitus with diabetic polyneuropathy
CPT/HCPCS: 15275; 87070; 87075; 87205

== ENCOUNTER → 2017-11-05 | Outpatient (CLI) | payer MEDICARE, BC | LOC: WOUNDCARE 08:57 | PROVIDERS: ATTEND Surgery | DX: E11.621 Type 2 diabetes mellitus with foot ulcer (principal); L97.422 Non-pressure chronic ulcer of left heel and midfoot with fat layer exposed; I70.244 Atherosclerosis of native arteries of left leg with ulceration of heel and midfoot; E11.42 Type 2 diabetes mellitus with diabetic polyneuropathy | CPT/HCPCS: 15275 ==

== ENCOUNTER → 2017-11-11 | Outpatient (CLI) | payer MEDICARE, BC ==
[~2017-11-11] MED LIST changes: +DIGO125T PO; +DOXY100C2 PO; +DOXY100C42 PO; +FAMO20TA5 PO; +FERR325T24 PO; +LINE600T7 PO; +LOTE5GEL OP; +NEO/3.5O18 OP; +ONDN4T PO
[2017-11-11 17:33] LABS: CALCIUM 9.2 MG/DL (8.5-10.1); CREATININE SERUM 1.59 MG/DL (0.60-1.30); POTASSIUM 3.8 MMOL/L (3.6-5.0)
== END ==
LOC: WOUNDCARE 17:08
PROVIDERS: ATTEND Surgery
DX: E11.621 Type 2 diabetes mellitus with foot ulcer (principal); L97.422 Non-pressure chronic ulcer of left heel and midfoot with fat layer exposed; I70.244 Atherosclerosis of native arteries of left leg with ulceration of heel and midfoot; E11.42 Type 2 diabetes mellitus with diabetic polyneuropathy
CPT/HCPCS: 36415; 80048

== ENCOUNTER → 2017-11-11 | Outpatient (CLI) | payer MEDICARE, BC ==
[2017-11-12 10:21] LABS: POTASSIUM 3.8 MMOL/L (3.6-5.0)
[2017-11-12 10:22] LABS: CALCIUM 9.2 MG/DL (8.5-10.1); CREATININE SERUM 1.59 MG/DL (0.60-1.30)
== END ==
LOC: HH 07:00
PROVIDERS: ATTEND Family Medicine
DX: I13.0 Hypertensive heart and chronic kidney disease with heart failure and stage 1 through stage 4 chronic kidney disease, or unspecified chronic kidney disease (principal)
CPT/HCPCS: 80048

== ENCOUNTER → 2017-11-12 | Outpatient (CLI) | payer MEDICARE, BC | LOC: WOUNDCARE 09:07 | PROVIDERS: ATTEND Surgery | DX: E11.621 Type 2 diabetes mellitus with foot ulcer (principal); I70.244 Atherosclerosis of native arteries of left leg with ulceration of heel and midfoot; L97.422 Non-pressure chronic ulcer of left heel and midfoot with fat layer exposed; E11.42 Type 2 diabetes mellitus with diabetic polyneuropathy | CPT/HCPCS: 11042 ==

== ENCOUNTER 2017-11-13 09:27 | Observation (INO) | payer MEDICARE, BC ==
[~2017-11-13] VITALS: Ht 177.8 cm; Wt 99.0 kg
[~2017-11-13 09:27] MED LIST changes: -DIGO125T PO; -DOXY100C2 PO; -DOXY100C42 PO; -FAMO20TA5 PO; -FERR325T24 PO; -LINE600T7 PO; -LOTE5GEL OP; -NEO/3.5O18 OP; -ONDN4T PO
--- NOTE | 2017-11-13 10:20 | ED Fall/Injury ---
General Chief Complaint: Trauma-Non Activation Stated Complaint: FALL/WEAKNESS Source: patient Exam Limitations: no limitations (OKSANA MOODY MD) History of Present Illness Date Seen by Provider: Nov 13, 2017 Time Seen by Provider: 10:10 Initial Comments Patient's had multiple falls over the past couple days including this morning. Story was unwitnessed. He is not sure if he hit his head but does complain of head and middle neck pain. EMS was summoned and brought him here. Family reports progressive weakness over the last several days to weeks. Had history of multiple falls. Does complain of pain to the left hip and knee region and has abrasions over both lower extremities at the knees. There was a question of low back pain as well but he denies this at this time. Occurred: this morning Severity: moderate Injuries/Pain Location: head, neck, pelvis, lower extremity Context: unknown Loss of Consciousness: unsure Modifying Factors: Worse With Movement Associated Symptoms (Fall): No Abdominal Pain, No Chest Pain, Confusion, No Headache, No Nausea/Vomiting, Neck Pain, Shortness of Air, Trouble Walking, No Vision Changes (OKSANA MOODY MD) Allergies and Home Medications Allergies Coded Allergies: sulfamethoxazole (Verified Allergy, Mild, RASH, 12/26/16) trimethoprim (Verified Allergy, Mild, RASH, 12/26/16) Home Medications Aspirin 81 Mg Tablet.dr, 81 MG PO 1400, (Reported) Carvedilol 12.5 Mg Tablet, 12.5 MG PO BID, (Reported) Clopidogrel Bisulfate 75 Mg Tablet, 75 MG PO DAILY, #30 Ref 3 Prescribed by: KEELEY ROSSI on 08/21/17 0920 Dicloxacillin Sodium 250 Mg Cap, 250 MG PO QID for 10 Days, (Reported) 10 DAY SUPPLY FILLED 08-11-17 Digoxin 125 Mcg Tablet, 125 MCG PO DAILY, (Reported) Furosemide 20 Mg Tablet, 40 MG PO 0800,1400, (Reported) TAKES 2 (20 MG) TABLETS Gabapentin 300 Mg Capsule, 300 MG PO BID, (Reported) Hydrocodone Bit/Acetaminophen 1 Each Tablet, 1 EACH PO Q8H PRN for PAIN-MODERATE , (Reported) Insuln Asp Prt/Insulin Aspart 1 Unit/0.01 Ml Susp, 28 UNIT SQ 1200, (Reported) WITH LUNCH Insuln Asp Prt/Insulin Aspart 1 Unit/0.01 Ml Susp, 30 UNIT SQ HS, (Reported) Krill Oil 500 Mg Capsule, 500 MG PO DAILY, (Reported) Lactobacillus Combo No.11 1 Each Cap.sprink, 1 CAP PO DAILY, (Reported) Losartan Potassium 25 Mg Tablet, 25 MG PO DAILY, (Reported) Potassium Chloride 20 Meq Tab.er.prt, 40 MEQ PO BID, (Reported) TAKES 2 (20MEQ) TABLETS Trospium Chloride 60 Mg Cap.er.24h, 60 MG PO DAILY, (Reported) Warfarin Sodium 5 Mg Tablet, 5 MG PO HS, (Reported) [nattokinase] , 2,000 PO DAILY, (Reported) Constitutional: see HPI, No chills, No fever Eyes: No Symptoms Reported Ears, Nose, Mouth, Throat: no symptoms reported Respiratory: no symptoms reported Cardiovascular: no symptoms reported Gastrointestinal: No nausea, No vomiting Genitourinary: no symptoms reported Musculoskeletal: see HPI, muscle pain, muscle weakness, neck pain Skin: change in color, lesions Psychiatric/Neurological: Denies Anxiety, Denies Headache, Weakness (OKSANA MOODY MD) Past Dcejwpo-Egndmd-Yyvsip Hx Patient Social History Alcohol Use: Denies Use Recreational Drug Use: No Smoking Status: Former Smoker Type Used: Cigarettes Former Smoker, Quit: Aug 20, 2005 2nd Hand Smoke Exposure: No Recent Hopitalizations: Yes (SEP 2016 PER ) (OKSANA MOODY MD) Immunizations Up To Date Tetanus Booster (TDap): Less than 5yrs PED Vaccines UTD: No Date of Pneumonia Vaccine: Aug 28, 2016 Date of Influenza Vaccine: Jul 16, 2017 (OKSANA MOODY MD) Seasonal Allergies Seasonal Allergies: No (OKSANA MOODY MD) Surgeries History of Surgeries: Yes (CATARACTS, CARPAL TUNNEL, BILAT.THUMBS) Surgeries: Eye Surgery, Orthopedic, Prostatectomy, Tonsillectomy, Vascular Surgery (OKSANA MOODY MD) Respiratory History of Respiratory Disorde: Yes (CPAP AT HS; ACUTE ON CHRONIC RESPIRATORY FAILURE) Respiratory Disorders: Pneumonia, Sleep Apnea, COPD Currently Using CPAP: Yes Currently Using BIPAP: No (OKSANA MOODY MD) Cardiovascular History of Cardiac Disorders: Yes Cardiac Disorders: Atrial Fibrillation, High Cholesterol, Hypertension (OKSANA MOODY MD) Neurological History of Neurological Disord: Yes (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) Neurological Disorders: Neuropathy (OKSANA MOODY MD) Reproductive System Hx Reproductive Disorders: No Sexually Transmitted Disease: No HIV/AIDS: No (OKSANA MOODY MD) Genitourinary History of Genitourinary Disor: Yes (CHRONIC ADLER/TURP) Genitourinary Disorders: Benign Prostatic Hyperpl, Renal Failure, UTI-Chronic (OKSANA MOODY MD) Gastrointestinal History of Gastrointestinal Di: No Gastrointestinal Disorders: Gastroesophageal Reflux, Chronic Constipation (OKSANA MOODY MD) Musculoskeletal History of Musculoskeletal Dis: Yes (GENERALIZED WEAKNESS ) (OKSANA MOODY MD) Endocrine History of Endocrine Disorders: Yes Endocrine Disorders: Diabetes, Insulin dep (OKSANA MOODY MD) HEENT History of HEENT Disorders: Yes HEENT Disorders: Cataract, Macular Degeneration Hearing Impairment: Hard of Hearing (OKSANA MOODY MD) Cancer History of Cancer: Yes (BASAL CELL CARCINOMA) Cancer: Skin Did You Recieve Any Treatments: No (OKSANA MOODY MD) Psychosocial History of Psychiatric Problem: Yes Behavioral Health Disorders: Sleep Difficulties (OKSANA MOODY MD) Integumentary History of Skin or Integumenta: Yes (CELLULITIS IN LEFT KNEE EARLY OCTOBER 2013) Skin/Integumentary Disorders: Recent Skin Changes (OKSANA MOODY MD) Blood Transfusions History of Blood Disorders: No Adverse Reaction to a Blood Tr: No (OKSANA MOODY MD) Reviewed Nursing Assessment Reviewed/Agree w Nursing PMH: Yes (OKSANA MOODY MD) Family Medical History Significant Family History: Cancer Family Medial History: COPD 19 FATHER Colon cancer 19 MOTHER Diabetes mellitus G8 SISTER Drug abuse G8 SISTER Lung cancer 19 FATHER Polio G8 BROTHER Sarcoidosis G8 BROTHER (OKSANA MOODY MD) Family Medial History: COPD 19 FATHER Colon cancer 19 MOTHER Diabetes mellitus G8 SISTER Drug abuse G8 SISTER Lung cancer 19 FATHER Polio G8 BROTHER Sarcoidosis G8 BROTHER (MARILOU RODAS MD) Physical Exam Vital Signs Capillary Refill : (OKSANA MOODY MD) General Appearance: WD/WN, no apparent distress HEENT: PERRL/EOMI, pharynx normal Neck: No tender lateral, tender midline (mild his C-spine. No obvious deformity or step-off. C-collar remains in place after exam.) Cardiovascular: regular rate, rhythm, no murmur Respiratory: lungs clear, normal breath sounds Gastrointestinal: non tender, soft Back: normal inspection, no CVA tenderness, no vertebral tenderness Extremities: non-tender, normal inspection, other (mild tenderness around abrasions to both knees with left being worse than right. Question of left hip pain) Neurologic/Psychiatric: alert, oriented x 3 Skin: warm/dry, other (multiple abrasions to the anterior knees bilateral and multiple abrasions to the lower region of the legs bilaterally. Has wound dressing to the left ankle and foot that is followed by wound care. This was left in place.) (OKSANA MOODY MD) Mallory Coma Score Best Eye Response: (4) Open Spontaneously Best Verbal Response: (5) Oriented Best Motor Response: (6) Obeys Commands (OKSANA MOODY MD) Date of ETT Placement: Oct 13, 2016 Time of ETT Placement: 2129 (OKSANA MOODY MD) Progress/Results/Core Measures Results/Orders Lab Results Laboratory Tests Test 11/13/17 10:40 Range/Units Urine Color YELLOW Urine Clarity CLEAR Urine pH 7 5-9 Urine Specific [place] 1.010 L 1.016-1.022 Urine Protein 4+ NEGATIVE Urine Glucose (UA) 2+ H NEGATIVE Urine Ketones NEGATIVE NEGATIVE Urine Nitrite NEGATIVE NEGATIVE Urine Bilirubin NEGATIVE NEGATIVE Urine Urobilinogen NORMAL NORMAL MG/DL Urine Leukocyte Esterase NEGATIVE NEGATIVE Urine RBC (Auto) 5+ H NEGATIVE Urine RBC >100 H /HPF Urine WBC NONE /HPF Urine Crystals NONE /LPF Urine Bacteria NEGATIVE /HPF Urine Casts NONE /LPF Urine Mucus NEGATIVE /LPF Urine Culture Indicated NO (MARILOU RODAS MD) Progress Note : Progress Note Seen and evaluated. CT head and neck ordered. X-ray pelvis and left hip as well as left knee. C-collar remains in place. 1353: Patient to be admitted. See Dr. RODAS note for further as he continued evaluation for me. Patient and family agree with plan. (OKSANA MOODY MD) Departure Communication (Admissions) Time/Spoke to Admitting Phy: 13:37 (OKSANA MOODY MD) Progress Notes 1217 took over the completion of patient visit from Dr. Moody. The only remaining testing that was that of the CT scan of the cervical spine. This has returned negative. The collar was removed and the patient was asked to anteflex the neck which she did well and to horizontally rotate to the right and left which he did well. It is noted that the hip films are negative. He was able to straight leg lift. After getting the patient dressed and having to sturdy lads stand him up it was clear that he can walk no more than 2 steps independently and even at risk at that. Inpatient rehabilitation was asked to come down and evaluate him. He was ultimately concluded that he would be admitted observation with PT and OT eval's. This was discussed with his primary physician Dr. Hugo Sanchez and was okayed. (MARILOU RODAS MD) Impression Impression: Primary Impression: fall at home/gait instability Disposition: ADMITTED INPATIENT Condition: Stable/Unchanged Admissions Decision to Admit Reason: Admit from ER (General) Decision to Admit/Date: Nov 13, 2017 Time/Decision to Admit Time: 13:46 (OKSANA MOODY MD) Decision to Admit Reason: Admit from ER (General) Decision to Admit/Date: Nov 13, 2017 Time/Decision to Admit Time: 13:46 (MARILOU RODAS MD) Departure-Patient Inst. Decision time for Depature: 12:16 (MARILOU RODAS MD) Referrals: HUGO SANCHEZ MD (PCP/Family) Primary Care Physician Add. Discharge Instructions: All discharge instructions reviewed with patient and/or family. Voiced understanding. Apply ice pack to any areas of bruising or swelling. Exercise care in ambulation. Consider the use of a walker. OKSANA MOODY MD Nov 13, 2017 10:20 MARILOU RODAS MD Nov 13, 2017 12:17
[2017-11-13 10:46] LABS: BILIRUBIN,URINE NEGATIVE (NEGATIVE); CLARITY,URINE CLEAR; COLOR,URINE YELLOW; GLUCOSE, URINE (UA) 2+ (NEGATIVE); KETONES,URINE NEGATIVE (NEGATIVE); LEUKOCYTE ESTERASE ,URINE NEGATIVE (NEGATIVE); NITRITE,URINE NEGATIVE (NEGATIVE); PH,URINE 7 (5-9); PROTEIN,URINE 4+ (NEGATIVE); UROBILINOGEN,URINE NORMAL (NORMAL)
[2017-11-13 10:56] LABS: BACTERIA,URINE NEGATIVE /HPF; RBC,URINE >100 /HPF
--- NOTE | 2017-11-13 11:44 | Diagnostic Imaging Report ---
Indication: Fall. Time of exam: 11:23 AM Findings: Multiple views of the pelvis and left hip were obtained. Femoral acetabular alignment is normal bilaterally. There is superior joint space narrowing bilaterally. The femoral heads and necks are intact. The rami appear intact. SI joints and symphysis are non-widened. No fractures are seen. Impression: No acute bony normality is detected. Dictated by: Dictated on workstation # [id number]
--- NOTE | 2017-11-13 11:50 | Diagnostic Imaging Report ---
PROCEDURE: CT head and CT cervical spine without contrast. TECHNIQUE: Multiple contiguous axial images were obtained through the brain and cervical spine without the use of intravenous contrast. Sagittal and coronal reformations through the cervical spine were then performed. INDICATION: Fall. CT head: COMPARISON: Comparison is made with prior CT head from 06/15/2017. FINDINGS: The ventricular size and sulcal pattern are appropriate for the patient's age. Moderate periventricular hypodensity is noted consistent with senescent change. No sulcal effacement, midline shift, or hemorrhage is detected. Cisterns are patent. Visualized paranasal sinuses demonstrate small mucus retention cysts or polyps within bilateral maxillary sinuses. IMPRESSION: Senescent changes. No acute intracranial process is detected. CT cervical spine: FINDINGS: Curvature and alignment of the cervical spine is normal. There is multilevel degenerative disc and facet disease. The prevertebral tissues are normal. The odontoid is intact. No fractures are identified. IMPRESSION: Cervical spondylosis. No acute bony abnormality is identified. Dictated by: Dictated on workstation # [id number]
[2017-11-13 13:35] VITALS: BP 147/83
--- NOTE | 2017-11-13 13:41 | Diagnostic Imaging Report ---
INDICATION: Fall and left knee pain. TIME OF EXAM: 11:19 AM 3 views of the left knee were obtained. FINDINGS: The alignment is normal. Joint spaces are well-maintained apart from mild medial compartmental narrowing. The articular surfaces are smooth. No fracture, dislocation or effusion is detected. Femoral popliteal vascular calcifications are noted. IMPRESSION: No acute bony abnormality is identified. Dictated by: Dictated on workstation # [id number]
[2017-11-13] MEDS ORDERED: CATHETER FLUSH 10 ML SYR IV PRN (15:15)
[2017-11-13] MEDS ORDERED: FAMO20TA5 PO (15:20)
[2017-11-13] MEDS ORDERED: INSU100I13 SQ (15:20)
[2017-11-13] MEDS ORDERED: FERR325T24 PO (15:20)
[2017-11-13] MEDS ORDERED: CLOP75TA69 PO (15:20)
[2017-11-13] MEDS ORDERED: INSU100I13 SC (15:20)
[2017-11-13] MEDS ORDERED: DIGO125T PO (15:20)
[2017-11-13] MEDS ORDERED: LOSA25TA21 PO (15:20)
--- NOTE | 2017-11-13 15:36 | Physical Therapy Evaluation ---
PT Evaluation-General Medical Diagnosis Admission Date Nov 13, 2017 at 13:45 Medical Diagnosis: Debility and UTI Onset Date: Nov 13, 2017 Therapy Diagnosis Therapy Diagnosis: Impaired functional mobility, strength, activity tolerance, balance Height/Weight Height (Feet): 5 Height (Inches): 10.00 Weight (Pounds): 231 Weight (Ounces): 5.0 Precautions Precautions/Isolations: Fall Prevention, Standard Precautions Weight Bear Status Right Lower Extremity: Right Full Weight Bearing Left Lower Extremity: Left Full Weight Bearing Referral Physician: Hugo Alexander MD Reason for Referral: Evaluation/Treatment Medical History Pertinent Medical History: Atrial Fib, COPD, DM, GERD, HTN, Macular Degenertion , Neuropathy, PVD, Renal Insufficiency, Smoking Additional Medical History Acute on chronic respiratory failure, high cholesterol, neuropathy in hands and feet, chronic UTI, BPH, sleep apnea Current History EMS called after history of falls and generalized weakness. Reviewed History: Yes Social History Home: Multilevel Current Living Status: Spouse Entry Into Home: Stairs Without Railing PT Steps Into Home: 4 PT Steps Inside Home: 0 Pt has multiple steps in home but they are not used. Prior/Core FIM Prior Level of Function Functional [place] Measure 0=Not Assessed/NA 4=Minimal Assistance 1=Total Assistance 5=Supervision or Setup 2=Maximal Assistance 6=Modified [place] 3=Moderate Assistance 7=Complete [place] Bed Mobility: 6 Transfers (B,C,W/C) (FIM): 6 Gait: 6 Locomotion: 6 Pt used FWW in the home and in community. PT Evaluation-Current Subjective Pt is laying in bed pre eval c/o pain at the castro and knees due to abrasions that occurred from a recent fall. Pt agrees to PT. Pain Comment: No numerical rating given Pt/Family Goals Mod I in home with FWW Objective Patient Orientation: Normal For Age Problem Solving: Fair Attachments: IV ROM/Strength ROM Lower Extremities WFL livan Strength Lower Extremities Grossly 4/5 livan with 3+/5 in livan ankle DF Integumentary/Posture Integumentary multiple abrasions bilateral LE's Bowel Incontinence: No Bladder Incontinence: No Posture WFL Neuromuscular (Tone, Coordination, Reflexes) coordination diminished due to debility and neuropathy Sensory Vision: Cataracts, macular degeneration Hearing: Impaired Sensation Right Lower Extremit: Impaired Sensation Left Lower Extremity: Impaired Sensation Lower Extremities BLE: impaired at L5, S1 Transfers Functional [place] Measure 0=Not Assessed/NA 4=Minimal Assistance 1=Total Assistance 5=Supervision or Setup 2=Maximal Assistance 6=Modified [place] 3=Moderate Assistance 7=Complete [place] Transfers (B, C, W/C) (FIM): 4 Scootin Rollin Supine to/from Sit: 4 Sit to/from Stand: 4 Min A needed for bed mobility and transfer. Gait Mode of Locomotion: Walk Anticipated Mode of Locomotion: Walk Gait (FIM): 4 Distance: 200 feet Gait Level of Assist: 4 Gait Persons Needed: 1 Gait Assistive Device: FWW Comments/Gait Description Pt ambulates with flat foot gait sequence, lack of bilateral ankle DF, and lack of awareness of surroundings. This may be due to history of cataracts and macular generation. Balance Sitting Static: Normal Sitting Dynamic: Normal Standing Static: Fair Standing Dynamic: Fair Assessment/Needs Pt demonstrates BLE weakness and poor activity tolerance. Pt ambulates unsteadily with flat foot gait pattern. Pt will benefit from formal PT services in order to address mentioned impairments. Rehab Potential: Fair Post Rehab Potential-Barriers: compliance with exercise and ambulate upon dismissal PT Short Term Goals Short Term Goals Time Frame: Nov 20, 2017 Transfers (B,C,W/C) (FIM): 5 Gait (FIM): 5 Gait Distance Comment: 200 feet Gait Level of Assist: 5 Gait Assistive Device: FWW PT Plan Problem List Problem List: Activity Tolerance, Functional Strength, Safety, Balance, Gait, Transfer, Bed Mobility, ROM Treatment/Plan Treatment Plan: Continue Plan of Care Treatment Plan: Bed Mobility, Education, Functional Activity Amanda, Functional Strength, Gait, Safety, Therapeutic Exercise, Transfers Treatment Duration: Nov 20, 2017 Frequency: 11 times per week Estimated Hrs Per Day: .5 hour per day Patient and/or Family Agrees t: Yes Safety Risks/Education Patient Education: Gait Training, Transfer Techniques, Correct Positioning, Safety Issues Teaching Methods: Demonstration, Discussion Response to Teaching: Reinforcement Needed Discharge Recommendations Plan Pt will perform bed mobility and transfer training, gait training, strength and activity tolerance training, and education in order to promote independence at home. Therapy D/C Recommendations: Home w/ Family Support Time/GCodes Time In: 1505 Time Out: 1525 Total Billed Treatment Time: 20 Total Billed Treatment 1 visit 20 min EVNini G Codes Necessary: Yes PT/OT Therapy GCodes Therapy Functional Limitation: Physical Therapy Test(s)/Tool used to determine: Level of Assistance Scale Functional Limitation-Current Charge Code: MOBCUR Modifier: CK Functional Limitation-Goal Charge Code: MOBGOSANTA Modifier: NIKHIL KOHLI PT Nov 13, 2017 15:36
--- NOTE | 2017-11-13 15:47 | Occupational Therapy Eval ---
OT Evaluation-General/PLF Medical Diagnosis Admission Date Nov 13, 2017 at 13:45 Medical Diagnosis: UTI, debility Onset Date: Nov 13, 2017 Therapy Diagnosis Therapy Diagnosis: Weakness, Decreased ADL skills Height/Weight Height (Feet): 5 Height (Inches): 10.00 Weight (Pounds): 231 Weight (Ounces): 5.0 Weight Bear Status Weight Bearing Restriction: Weight Bearing/Tolerated Referral Physician: Benjamin Referral Reason: Activity Tolerance, Self Care, Evaluation/Treatment Medical History Pertinent Medical History: Atrial Fib, COPD, DM, HTN, Macular Degenertion, Neuropathy, PVD, Smoking Additional Medical History cataracts, carpal tunnel, prostatectomy, pneumonia, multiple falls, multiple sores on bottom of feet and on shins. Current History Pt. states that he "falls a lot" at home. Pt. would like to improve strength. Reviewed History: Yes Social History Home: Single Level Current Living Status: Spouse Entry Into Home: Stairs With Railing Steps Into Home: 4 ADL-Prior Level of Function ADL PLOF Comments Pt. states that he was able to bathe and dress independently prior to this. DME/Equipment: Bath Chair, Grab Bars, Shower DME/Equipment Comments Pt. has a walker and handicap shower. OT Current Status Subjective Pt. does not report pain, but does state that he "needs" to get stronger. Pt. reports that he has been falling a lot at home. Appearance Pt. in bed. Has just finished with PT. Agrees to work with this therapist. Mental Status/Objective Patient Orientation: Person, Place Current Hand Dominance: Right Upper Extremity ROM Pt. demonstrates approximately 90 degrees shoulder flexion. Upper Extremity Strength 3/5 bilateral UE strength. ADL-Treatment Functional [place] Measure 0=Not Assessed/NA 4=Minimal Assistance 1=Total Assistance 5=Supervision or Setup 2=Maximal Assistance 6=Modified [place] 3=Moderate Assistance 7=Complete IndependenceIRFPAI Quality Coding Scale 6 Independent with activity with or without an assistive device 5 Patient requires set up or clean up by helper. Patient completes activity by themselves 4 Supervision or touching assist (CGA). Mchenry provide cues , steadying assist 3 The helper provides less than half the effort to complete the activity 2 The helper provides more than half the effort to complete the activity 1 Dependent. The helper does all the effort to complete an activity 7 Patient refused to complete or attempt activity 9 The patient did not perform the activity before the current illness or injury 88 Not attempted due to Medical conditions or safety concerns Lower Body Dressing (FIM): 4 (CGA for sitting balance while bending over to doff/don socks.) Transfers (B, C, W/C) (FIM): 3 (Min assist supine-sit. Mod assist sit-stand and steps toward HOB. Pt. able to get his legs back into bed.) Education OT Patient Education: Correct positioning, Modified ADL techniques, Progress toward Goal/Update tx plan, Purpose of tx/functional activities, Reviewed precautions, Rehab process, Transfer techniques Teaching Recipient: Patient Teaching Methods: Demonstration, Discussion Response to Teaching: Verbalize Understanding, Return Demonstration OT Short Term Goals Short Term Goals Time Frame: Nov 20, 2017 Eating(FIM): 5 Grooming(FIM): 5 Bathing(FIM): 4 Upper Body Dressing(FIM): 5 Lower Body Dressing(FIM): 5 Toileting(FIM): 5 Transfers (B,C,W/C) (FIM): 5 Toilet/Commode Transfer(FIM): 5 Shower Transfer(FIM): 4 Additional Short Term Goals: 1-Demonstrate ADL Tasks, 2-Verbalize Understanding , 3-ImproveStrength/Amanda 1=Demonstrate adherence to instructed precautions during ADL tasks. 2=Patient will verbalize/demonstrate understanding of assistive devices/ modifications for ADL. 3=Patient will improve strength/tolerance for activity to enable patient to perform ADL's. OT Three Dimensional Map Modeler Goals Three Dimensional Map Modeler Goals Time Frame: Nov 27, 2017 Eating (FIM): 6 Grooming(FIM): 6 Bathing(FIM): 5 Upper Body Dressing(FIM): 6 Lower Body Dressing(FIM): 6 Toileting(FIM): 6 Transfers (B,C,W/C) (FIM): 6 Toilet/Commode Transfer(FIM): 6 Shower Transfer(FIM): 5 Additional Goals: 1-Demonstrate ADL Tasks, 2-Verbalize Understanding, 3- ImproveStrength/Amanda 1=Demonstrate adherence to instructed precautions during ADL tasks. 2=Patient will verbalize/demonstrate understanding of assistive devices/ modifications for ADL. 3=Patient will improve strength/tolerance for activity to enable patient to perform ADL's. OT Education/Plan Problem List/Assessment Assessment: Decreased Activ Tolerance, Decreased UE Strength, Dependent Transfers, Impaired Bed Mobility, Impaired Funct Balance, Impaired I ADL's, Impaired Self-Care Skills Discharge Recommendations Plan/Recommendations: Continue POC Therapy D/C Recommendations: Acute Rehab Equpiment Recommendations-D/C: Hip Kit Target Placement Acute rehab to gain strength and independence. Treatment Plan/Plan of Care Treatment,Training & Education: Yes Patient would benefit from OT for education, treatment and training to promote independence in ADL's, mobility, safety and/or upper extremity function for ADL' s. Plan of Care: ADL Retraining, Functional Mobility, UE Funct Exercise/Act Treatment Duration: Nov 27, 2017 Frequency: 5 times per week Estimated Hrs Per Day: .25 hour per day Agreement: Yes Rehab Potential: Fair Time/GCodes Start Time: 15:25 Stop Time: 15:40 Total Time Billed (hr/min): 15 Billed Treatment Time 1, CORA Fostercumeet-ULI Selfgoal-BASIM HARRIS OT Nov 13, 2017 15:47
[2017-11-13 16:00] VITALS: BP 143/77
[2017-11-13] MEDS ORDERED: CEFD300C3 PO (16:03)
[2017-11-13] MEDS ORDERED: WARF-48 PO (16:03)
[2017-11-13] MEDS ORDERED: NEO/3.5O18 OP (16:03)
[2017-11-13] MEDS ORDERED: DOXY100C2 PO (16:03)
[2017-11-13] MEDS ORDERED: LINE600T7 PO (16:03)
[2017-11-13] MEDS ORDERED: LOTE5GEL OP (16:03)
[2017-11-13] MEDS ORDERED: DOXY100C42 PO (16:06)
[2017-11-13] MEDS ORDERED: ONDN4T PO (16:06)
[2017-11-13 16:10] LABS: BASOPHILS % (AUTO) 0 % (0-10); EOSINOPHILS # (AUTO) 0.1 10^3/uL (0.0-0.3); EOSINOPHILS % (AUTO) 1 % (0-10); HEMATOCRIT 37 % (40-54); HEMOGLOBIN 13.5 G/DL (13.3-17.7); LYMPHOCYTES # (AUTO) 1.4 X 10^3 (1.0-4.0); LYMPHOCYTES % (AUTO) 12 % (12-44); MEAN CORPUSCULAR HEMOGLOBIN 31 PG (25-34); MEAN CORPUSCULAR HGB CONC 36 G/DL (32-36); MEAN CORPUSCULAR VOLUME 85 FL (80-99); MEAN PLATELET VOLUME 10.9 FL (7.4-10.4); MONOCYTES # (AUTO) 1.6 X 10^3 (0.0-1.0); MONOCYTES % (AUTO) 13 % (0-12); NEUTROPHILS # (AUTO) 9.1 X 10^3 (1.8-7.8); NEUTROPHILS % (AUTO) 74 % (42-75); PLATELET COUNT 121 10^3/uL (130-400); RED BLOOD COUNT 4.39 10^6/uL (4.35-5.85); RED CELL DISTRIBUTION WIDTH 13.8 % (10.0-14.5); WHITE BLOOD COUNT 12.3 10^3/uL (4.3-11.0)
[2017-11-13] MEDS: NS IV 1000 ML 1,000 ML IV SCH (16:26)
[2017-11-13 16:27] LABS: ALBUMIN 2.9 GM/DL (3.2-4.5); BILIRUBIN,TOTAL 1.5 MG/DL (0.1-1.0); CREATININE SERUM 1.55 MG/DL (0.60-1.30); POTASSIUM 3.5 MMOL/L (3.6-5.0)
[2017-11-13] MEDS ORDERED: CEFDINIR 300 MG (OMNICEF) CAP PO SCH (18:30)
[2017-11-13] MEDS ORDERED: HYDROcodone/APAP 7.5 MG/325 MG (LORTAB, LORCET PLUS) TABLET PO PRN (18:30)
[2017-11-13] MEDS ORDERED: warFARin 5 MG (COUMADIN) TAB PO SCH ×2 (18:30→20:15)
--- NOTE | 2017-11-13 18:42 | History & Physical ---
History of Present Illness History of Present Illness Reason for visit/HPI 82 year old male admitted observation for reoccuring recent falls with dizziness and confusion. Pt took a fall overnight 11/11/17 and again last night. He was found by his this morning at 6 am lying on the living room floor naked with the dog blanket on him and likely urinated on himself. Significant confusion. Unknown duration as they sleep in separate rooms and his was unaware of when he got up. Pt sustained injuries to both knees and R leg. Pt was vomiting 2 days ago- (has family that recently had GI compliants of vomiting ). Pt states he was dizzy when he fell last night. Step-Son states he has also had increased confusion. has brought pt to clinic a couple times in past year with complaint of declining mental status. --He is on doxycycline for ESBL UTI -will complete course of doxycycline . --This confusion has been worsening over the past year- worse with infection. -His physical status of weakness has worsened and is not getting better- he is at risk for a serious life changing fall- especially since he is on warfarin for Afib. No fevers. Review of labs from 11/11/17 near baseline. will admit for further work up and strengthening,, placement? Date of Admission Nov 13, 2017 at 13:45 Date Seen by Provider: Nov 13, 2017 Time Seen by Provider: 19:05 I consulted on this patient on 11/13/17 18:28 Attending Physician Hugo Sanchez MD Admitting Physician Hugo Sanchez MD Consult Allergies and Home Medications Allergies Coded Allergies: sulfamethoxazole (Verified Allergy, Mild, RASH, 11/13/17) trimethoprim (Verified Allergy, Mild, RASH, 11/13/17) Home Medications Aspirin 81 Mg Tablet.dr, 81 MG PO 1400, (Reported) Carvedilol 12.5 Mg Tablet, 18.75 MG PO BID, (Reported) TAKES 1 & 1/2 (12.5MG) TABLETS Cefdinir 300 Mg Capsule, 300 MG PO BID, (Reported) #20 CAPSULES FILLED 11-06-17 Clopidogrel Bisulfate 75 Mg Tablet, 75 MG PO DAILY, (Reported) Digoxin 125 Mcg Tablet, 125 MCG PO DAILY, (Reported) Doxycycline Monohydrate 100 Mg Capsule, 100 MG PO BID for 14 Days, (Reported) FILLED #8 CAPSULES 11-05-17 AND FILLED #28 DOXYCYCLINE HYCLATE 10-31-17 SEE PATIENT NOTES FOR DETAILS Famotidine 20 Mg Tablet, 20 MG PO BID, (Reported) Ferrous Sulfate 325 Mg Tablet, 325 MG PO BID, (Reported) ON HOLD WHILE PATIENT IS ON ANTIBIOTIC Furosemide 20 Mg Tablet, 40 MG PO 0800,1400, (Reported) TAKES 2 (20 MG) TABLETS Hydrocodone Bit/Acetaminophen 1 Each Tablet, 1 TAB PO Q8H PRN for PAIN-MODERATE, (Reported) Insuln Asp Prt/Insulin Aspart 300 Units/3 Ml Solution, 28 UNITS SQ 1400, ( Reported) Insuln Asp Prt/Insulin Aspart 300 Units/3 Ml Solution, 32 UNITS SC HS, (Reported ) BETWEEN 10-11PM Krill Oil 500 Mg Capsule, 500 MG PO DAILY, (Reported) Linezolid 600 Mg Tablet, 600 MG PO BID, (Reported) #20 TABLETS FILLED 11-07-17 Losartan Potassium 25 Mg Tablet, 25 MG PO DAILY, (Reported) Loteprednol Etabonate 5 Gm Drops.gel, 1 DROP OP TID, (Reported) 14 DAY SUPPLY FILLED 11-04-17 León/Polymyx B Sulf/Dexameth 3.5 Gm Oint...g., OP UD, (Reported) APPLY 1/4 INCH RIBBON TWICE DAILY X 14 DAYS FILLED 11-04-17 Ondansetron HCl 4 Mg Tab, 4 MG PO BID, (Reported) TAKE BEFORE TAKING DOXYCYCLINE (#10 TABS FILLED 11-12-17) Potassium Chloride 20 Meq Tab.er.prt, 40 MEQ PO BID, (Reported) TAKES 2 (20MEQ) TABLETS Trospium Chloride 60 Mg Cap.er.24h, 60 MG PO DAILY, (Reported) Warfarin Sodium 5 Mg Tablet, 7.5 MG PO SuMoWeFr, (Reported) TAKES 1 & 1/2 (5MG) TABLETS Warfarin Sodium 5 Mg Tablet, 5 MG PO TuThSa, (Reported) [nattokinase] , 2,000 PO DAILY, (Reported) Past Qwvdghn-Ajlvam-Qyvwlx Hx Patient Social History Alcohol Use: Denies Use Recreational Drug Use: No Smoking Status: Former Smoker Former Smoker, Quit: Aug 20, 2005 Type Used: Cigarettes 2nd Hand Smoke Exposure: No Physical Abuse Screen: No Sexual Abuse: No Recent Foreign Travel: No Contact w/other who traveled: No Recent Hopitalizations: Yes (SEP 2016 PER ) Recent Infectious Disease Expo: No Immunizations Up To Date Tetanus Booster (TDap): Less than 5yrs Pediatric: No Date of Pneumonia Vaccine: Aug 28, 2016 Date of Influenza Vaccine: Jul 16, 2017 Seasonal Allergies Seasonal Allergies: No Surgeries Yes (CATARACTS, CARPAL TUNNEL, BILAT.THUMBS) Eye Surgery, Orthopedic, Prostatectomy, Tonsillectomy, Vascular Surgery Respiratory Yes (CPAP AT HS; ACUTE ON CHRONIC RESPIRATORY FAILURE) COPD, Pneumonia, Sleep Apnea Currently Using CPAP: Yes Currently Using BIPAP: No Cardiovascular Yes Atrial Fibrillation, High Cholesterol, Hypertension Neurological Yes (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) Neuropathy Reproductive System Hx Reproductive Disorders: No Sexually Transmitted Disease: No HIV/AIDS: No Genitourinary Yes (CHRONIC ADLER/TURP) Benign Prostatic Hyperpl, Renal Failure, UTI-Chronic Gastrointestinal No Gastroesophageal Reflux, Chronic Constipation Musculoskeletal Yes (GENERALIZED WEAKNESS ) Endocrine History of Endocrine Disorders: Yes Endocrine Disorders: Diabetes, Insulin dep HEENT History of HEENT Disorders: Yes HEENT Disorders: Cataract, Macular Degeneration Hearing Impairment: Hard of Hearing Cancer Yes (BASAL CELL CARCINOMA) Skin Did You Recieve Any Treatments: No Psychosocial History of Psychiatric Problem: Yes Behavioral Health Disorders: Sleep Difficulties Integumentary History of Skin or Integumenta: Yes (CELLULITIS IN LEFT KNEE EARLY OCTOBER 2013) Skin/Integumentary Disorders: Recent Skin Changes Blood Transfusions History of Blood Disorders: No Adverse Reaction to a Blood Tr: No Reviewed Nursing Assessment Reviewed/Agree w Nursing PMH: Yes Family Medical History Significant Family History: Cancer Family Hx: COPD 19 FATHER Colon cancer 19 MOTHER Diabetes mellitus G8 SISTER Drug abuse G8 SISTER Lung cancer 19 FATHER Polio G8 BROTHER Sarcoidosis G8 BROTHER Review of Systems Review of Systems General: No Chills, No Night Sweats HEENT: No Head Aches, No Visual Changes Pulmonary: No Dyspnea, Cough Cardiovascular: No: Chest Pain, Palpitations Gastrointestinal: Nausea, No: Vomiting, Abdominal Pain Genitourinary: No Dysuria, No Frequency Musculoskeletal: leg pain Neurological: Weakness, Confusion Physical Exam Vital Signs Vital Signs - First Documented 11/13/17 09:27 Temp 97.5 Pulse 70 Resp 18 B/P (MAP) 152/82 (105) Pulse Ox 98 O2 Delivery Room Air Capillary Refill : Less Than 3 SecondsLess Than 3 Seconds General Appearance: WD/WN HEENT: PERRL/EOMI Neck: Full Range of Motion, Non Tender, Supple Respiratory: Chest Non Tender, Lungs Clear, Normal Breath Sounds, No Accessory Muscle Use, No Respiratory Distress Cardiovascular: Regular Rate, Rhythm Gastrointestinal: Normal Bowel Sounds, Non Tender, Soft Rectal: Deferred Back: Normal Inspection, No CVA Tenderness Extremity: Normal Range of Motion, Non Tender, No Calf Tenderness, Other (skin tears on anterior skins.) Neurologic/Psychiatric: Alert, Oriented x3 Skin: Normal Color, Warm/Dry Lymphatic: No Adenopathy Assessment/Plan Assessment/Plan Assessment/Plan 82 yo M R53.1 Weakness/deconditioning- PT/OT (Z16.12) Extended spectrum beta lactamase (ESBL) resistance UTI- will complete doxycycline 11/15/17; symptom free- repeat UA- negative for infection - blood present from traumatic catheterization. (N39.0) Urinary tract infection- on doxycycline (R11.2) Nausea with vomiting- improved (R26.2) Difficulty in walking due to recent sedentary lifestyle. (E11.22) Type 2 diabetes mellitus with diabetic chronic kidney disease- insulin 70/30 decreased dosing as he usually does not eat as well inpatient- BID accuchecks. (G47.33) Obstructive sleep apnea - home cpap (N18.3) Chronic kidney disease, stage 3 (moderate) --monitor Cr. currently at baseline Cr- fluid hydration. chronic wound- bottom of foot- wound care consult- on cefdinir and linezolid per Dr. Farrell orders. (J44.9) Chronic obstructive pulmonary disease- continue oxygen prn (currently on room air) (I48.91) atrial fibrillation- continue warfarin- checking INR (I15.9) Secondary hypertension- continue current regimen. (K21.9) Gastro-esophageal reflux disease without esophagitis Chronic (F03.90) dementia without behavioral disturbance- monitor- worsened by infections- Dispo: admitted for observation- for evaluation of inpatient rehab vs long term placement for rehab. Pt needs physical assistance and requires OT/PT intense regimen to return home safely- ideally inpatient rehab but unsure if he will be able to do the 3hours/ day. considering checking CK- as he was lying on the floor of living room and kitchen consecutive nights- consider rhabdomyolysis if Cr elevates. Problems: Clinical Quality Measures DVT/VTE Risk/Contraindication: Risk Factor Score Per Nursin RFS Level Per Nursing on Admit: 2=Moderate HUGO SANCHEZ MD Nov 13, 2017 18:42
[2017-11-13] MEDS ORDERED: PATIENT MAY USE OWN MEDS, ALL MC SCH (18:45)
[2017-11-13 19:30] VITALS: BP 141/67
[2017-11-13] MEDS ORDERED: KCL 20 MEQ TAB (K-DUR) PO SCH (19:30)
[2017-11-13] MEDS ORDERED: NON-FORMULARY MEDICATION 1 EA EA (Loteprednol Etabonate (Lotemax) 1 DROP) OP SCH (21:00)
[2017-11-13] MEDS ORDERED: FAMOTIDINE 20 MG (PEPCID) TABLET PO SCH ×2 (21:00)
[2017-11-13] MEDS ORDERED: FERROUS SULF 325 MG (IRON) TAB PO SCH (21:00)
[2017-11-13] MEDS ORDERED: CARVEDILOL 12.5 MG (COREG) TABLET PO SCH (21:00)
[2017-11-13] MEDS ORDERED: inSUlin Protamine/ASPart 70/30 1 UNIT/0.01 ML DOSE SC SCH ×2 (21:00)
[2017-11-13] MEDS: KCL 20 MEQ TAB (K-DUR) PO SCH (21:26)
[2017-11-13] MEDS: CEFDINIR 300 MG (OMNICEF) CAP PO SCH (21:27)
[2017-11-13] MEDS: LINEZOLID (ZYVOX) 600 MG TAB PO SCH (21:30)
[2017-11-13] MEDS: CARVEDILOL 12.5 MG (COREG) TABLET PO SCH (21:30)
[2017-11-13] MEDS ORDERED: ACETAMINOPHEN 325 MG TABLET/CAPLET (TYLENOL) PO PRN (23:45)
[2017-11-14] VITALS: BP 165/81
[2017-11-14] MEDS: NS IV 1000 ML 1,000 ML IV SCH (02:52)
[2017-11-14 04:00] VITALS: BP 161/89
[2017-11-14] MEDS: KCL 20 MEQ TAB (K-DUR) PO SCH (06:31)
[2017-11-14 06:33] LABS: BASOPHILS % (AUTO) 0 % (0-10); EOSINOPHILS # (AUTO) 0.2 10^3/uL (0.0-0.3); EOSINOPHILS % (AUTO) 2 % (0-10); HEMATOCRIT 37 % (40-54); HEMOGLOBIN 13.1 G/DL (13.3-17.7); LYMPHOCYTES # (AUTO) 1.9 X 10^3 (1.0-4.0); LYMPHOCYTES % (AUTO) 18 % (12-44); MEAN CORPUSCULAR HEMOGLOBIN 30 PG (25-34); MEAN CORPUSCULAR HGB CONC 36 G/DL (32-36); MEAN CORPUSCULAR VOLUME 85 FL (80-99); MEAN PLATELET VOLUME 11.6 FL (7.4-10.4); MONOCYTES # (AUTO) 1.3 X 10^3 (0.0-1.0); MONOCYTES % (AUTO) 12 % (0-12); NEUTROPHILS # (AUTO) 7.1 X 10^3 (1.8-7.8); NEUTROPHILS % (AUTO) 68 % (42-75); PLATELET COUNT 121 10^3/uL (130-400); RED BLOOD COUNT 4.31 10^6/uL (4.35-5.85); WHITE BLOOD COUNT 10.4 10^3/uL (4.3-11.0)
[2017-11-14 06:50] LABS: INR 2.8 (0.8-1.4)
[2017-11-14 06:51] LABS: ALBUMIN 2.8 GM/DL (3.2-4.5); CALCIUM 8.8 MG/DL (8.5-10.1); CREATININE SERUM 1.34 MG/DL (0.60-1.30); PHOSPHORUS 2.5 MG/DL (2.3-4.7); POTASSIUM 3.6 MMOL/L (3.6-5.0)
[2017-11-14] MEDS ORDERED: DOXYCYCLINE 100 MG (VIBRAMYCIN) TABLET PO SCH ×2 (07:00→08:12)
[2017-11-14] MEDS ORDERED: inSUlin Protamine/ASPart 70/30 1 UNIT/0.01 ML DOSE SC SCH ×2 (07:00→09:00)
[2017-11-14 08:00] VITALS: BP 159/78
[2017-11-14] MEDS ORDERED: FUROSEMIDE 20 MG (LASIX) TAB PO SCH ×2 (08:00→08:10)
[2017-11-14] MEDS: CARVEDILOL 12.5 MG (COREG) TABLET PO SCH (08:40)
[2017-11-14] MEDS: LINEZOLID (ZYVOX) 600 MG TAB PO SCH (08:42)
[2017-11-14] MEDS: CEFDINIR 300 MG (OMNICEF) CAP PO SCH (08:42)
[2017-11-14] MEDS ORDERED: DIGOXIN 0.125 MG (LANOXIN) TAB PO SCH ×2 (09:00)
[2017-11-14] MEDS ORDERED: TROSPIUM 60 MG PO SCH (09:00)
[2017-11-14] MEDS ORDERED: LOSARTAN 25 MG (COZAAR) TAB PO SCH ×2 (09:00)
[2017-11-14] MEDS ORDERED: CLOPIDOGREL 75 MG (PLAVIX) TABLET PO SCH ×2 (09:00)
--- NOTE | 2017-11-14 09:11 | Discharge Inst-Simple/Standard ---
Discharge Inst-Standard Patient Instructions/Follow Up Plan of Care/Instructions/FU: transfer to inpatient rehab [facility] as he is unsafe to return home at this time due to increased fall risk coupled with being on plavix and warfarin. High risk for a fall resulting in head trauma that would likely be detrimental and possibly end in due to brain bleed. Plan for him to regain his strength and return home. Activity as Tolerated: Yes Discharge Diet: ADA Diet [facility] to [facility]: decline in status RUBEN SANCHEZ MD Nov 14, 2017 09:11
[2017-11-14 10:20] VITALS: BP 159/78
[2017-11-14] MEDS ORDERED: ASPIRIN E.C. 81 MG (ECOTRIN) TAB PO SCH ×2 (14:00)
--- OUTSIDE RECORDS SUMMARY | 2017-11-14 14:27 | XMS REPORT | Clinical Summary ---
Author Author [facility] Organization [facility] Address Unknown Phone Unavailable Care Team Providers Care Sample Patternmaker Name Role Phone JasonCailin Unavailable Unavailable Ru Gomez MD PCP Ronen Agosto MD Unavailable Source Comments Some departments are not documenting in the electronic medical record. If you do not see the information that you expected, contact Release of Information in the Health Information Management department at [phone] for further assistance in locating additional records.[facility] Allergies Active Allergy Reactions Severity Noted Date Comments Sulfamethoxazole-Trimetho RASH Medium 06/30/2015 prim Current Medications Prescription Sig. Disp. Refills Start End Date Status Date warfarin (COUMADIN) 5 mg Take 5 mg by mouth daily. 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 Paroxysmal atrial fibrillation (HCC) 06/30/2015 Overview: 12/02/13: Echo: LA size 5.5cm. EF 60%. Normal left ventricular systolic function. Mild MR, Mild TR. Essential hypertension 06/30/2015 COPD (chronic obstructive pulmonary disease) (HCC) 06/30/2015 Last Assessment & Plan: COPD with [...] and Noc ox Coronary artery disease involving nez perce coronary artery of nez perce heart 10/2014 without angina pectoris Diabetic neuropathy [...]
--- OUTSIDE RECORDS SUMMARY | 2017-11-14 15:24 | XMS REPORT | Clinical Summary ---
Author Author [facility] Organization [facility] Address Unknown Phone Unavailable Care Team Providers Care Grain Operations Manager Name Role Phone JasonCailin Unavailable Unavailable Ru Gomez MD PCP Ronen Agosto MD Unavailable Source Comments Some departments are not documenting in the electronic medical record. If you do not see the information that you expected, contact Release of Information in the Health Information Management department at [phone] for further assistance in locating additional records.[facility] Allergies Active Allergy Reactions Severity Noted [...] breath, Essential hypertension, Coronary artery disease involving kenaitze coronary artery of kenaitze heart without angina pectoris aspirin EC 81 [...] and Noc ox Coronary artery disease involving kenaitze coronary artery of kenaitze heart 10/2014 without angina pectoris Diabetic neuropathy [...]
[2017-11-14] MEDS ORDERED: warFARin 5 MG (COUMADIN) TAB PO SCH (18:00)
--- NOTE | 2017-11-14 18:02 | Discharge Summary ---
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) Obstructive sleep apnea - (N18.3) Chronic kidney disease, stage 3 (moderate) diabetic foot ulcer (J44.9) Chronic obstructive pulmonary disease- (I48.91) atrial fibrillation (I15.9) Secondary hypertension- (K21.9) Gastro-esophageal reflux disease without esophagitis (F03.90) dementia without behavioral disturbance- Discharge Diagnosis R53.1 Weakness/deconditioning- (Z16.12) Extended spectrum beta lactamase (ESBL) resistance UTI- (N39.0) Urinary tract infection- (R11.2) Nausea with vomiting- (R26.2) Difficulty in walking (E11.22) 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 Pt took a fall overnight 11/11/17 and again last night. He was found by his this morning at 6 am lying on the living room floor naked with the dog blanket on him and likely urinated on himself. Significant confusion. Unknown duration as they sleep in separate rooms and his was unaware of when he got up. Pt sustained injuries to both knees and R leg. Pt was vomiting 2 days ago- (has family that recently had GI compliants of vomiting ). Pt states he was dizzy when he fell last night. Step-Son states he has also had increased confusion. has brought pt to clinic a couple times in past year with complaint of declining mental status. --He is on doxycycline for ESBL UTI -will complete course of doxycycline . --This confusion has been worsening over the past year- worse with infection. -His physical status of weakness has worsened and is not getting better- he is at risk for a serious life changing fall- especially since he is on warfarin for Afib. No fevers. Review of labs from 11/11/17 near baseline. will admit for further work up and strengthening,, placement? Discharge Summary Hospital Course Hospital Course 82 yo male admitted for increased weakness and confusion. He worked with PT/OT and was transferred to inpatient rehab in attempt to keep him out of the hospital and future admissions. He is at high risk of injury/ if he continues to fall at home due to comorbidities thus warranting rehabilitation. IV fluid hydration did improve his creatinine overnight. INR was in range at 2.8. He will complete treatment for his ESBL UTI on 11/15/17. Labs Laboratory Tests 11/13/17 10:40: Urine Specific [place] 1.010L, Urine Glucose (UA) 2+H, Urine RBC (Auto) 5+H, Urine RBC >100H 11/13/17 16:00: White Blood Count 12.3H, Hematocrit 37L, Platelet Count 121L, Mean Platelet Volume 10.9H, Monocytes (%) (Auto) 13H, Neutrophils # (Auto) 9.1H, Monocytes # ( Auto) 1.6H, Potassium Level 3.5L, Blood Urea Nitrogen 27H, Creatinine 1.55H, Glucose Level 195H, Total Bilirubin 1.5H, Total Protein 6.0L, Albumin 2.9L 11/14/17 05:33: 11/14/17 05:59: Hematocrit 37L, Platelet Count 121L, Mean Platelet Volume 11.6H, Monocytes # ( Auto) 1.3H, Blood Urea Nitrogen 24H, Creatinine 1.34H, Albumin 2.8L, Red Blood Count 4.31L, Hemoglobin 13.1L, Prothrombin Time 29.0H, INR Comment 2.8H 11/14/17 12:13: Procedures None. Discharge Physical Examination Allergies: Coded Allergies: sulfamethoxazole (Verified Allergy, Mild, RASH, 11/13/17) trimethoprim (Verified Allergy, Mild, RASH, 11/13/17) Vitals & I&Os Vital Signs Date Time Temp Pulse Resp B/P (MAP) Pulse Ox O2 Delivery O2 Flow Rate FiO2 11/14/17 10:20 87 18 159/78 95 Room Air 11/14/17 08:00 97.7 General Appearance: Alert, Cooperative HEENT: Atraumatic Respiratory: Clear to Auscultation Cardiovascular: Regular Rate Abdominal: Normal Bowel Sounds, Soft Skin: No Breakdown, Other (diabetic foot ulcer- scabs, skin tear on anterior shins) Neuro: Normal Speech Psych/Mental Status: Other (confused at times. but pleasant ) Discharge Home Medications Reviewed and agree with Discharge Medication list on patient's Discharge Instruction sheet Condition at Discharge Discharged to inpatient rehab Instructions to Patient/Family Please see electronic discharge instructions given to patient. Clinical Quality Measures DVT/VTE Risk/Contraindication: Risk Factor Score Per Nursin RFS Level Per Nursing on Admit: 2=Moderate RUBEN SANCHEZ MD Nov 14, 2017 18:02
== END 2017-11-14 09:06 ==
LOC: EDUNIT# 09:27 → ER 09:28 → UNDOADMOB 13:45 → 4TH 13:45 → UNDODISOB 11-14 10:25
PROVIDERS: ADMIT Family Medicine; ATTEND Family Medicine
DX: R53.1 Weakness (principal); N39.0 Urinary tract infection, site not specified; Z16.12 Extended spectrum beta lactamase (ESBL) resistance; R11.2 Nausea with vomiting, unspecified; R26.2 Difficulty in walking, not elsewhere classified; E11.22 Type 2 diabetes mellitus with diabetic chronic kidney disease; G47.33 Obstructive sleep apnea (adult) (pediatric); N18.3 Chronic kidney disease, stage 3 (moderate); J44.9 Chronic obstructive pulmonary disease, unspecified; I48.91 Unspecified atrial fibrillation; I15.9 Secondary hypertension, unspecified; K21.9 Gastro-esophageal reflux disease without esophagitis; F03.90 Unspecified dementia, unspecified severity, without behavioral disturbance, psychotic disturbance, mood disturbance, and anxiety; Z79.01 Long term (current) use of anticoagulants; Z88.2 Allergy status to sulfonamides; Z88.8 Allergy status to other drugs, medicaments and biological substances; Z87.891 Personal history of nicotine dependence; K59.09 Other constipation; N40.0 Benign prostatic hyperplasia without lower urinary tract symptoms; Z79.4 Long term (current) use of insulin
CPT/HCPCS: 36415; 51701; 70450; 72125; 73562; 80053; 80069; 81000; 82962; 83036; 85025; 85610; G0378

== ENCOUNTER 2017-11-14 09:29 | Inpatient (IN) | payer MEDICARE, BC ==
[~2017-11-14] VITALS: Ht 177.8 cm; Wt 100.0 kg
[~2017-11-14 09:29] MED LIST changes: +DIGO-20 PO; +DIGO125T PO; -DIGO125T6 PO; +DOXY100C2 PO; +DOXY100C42 PO; +FAMO20TA5 PO; +FERR325T24 PO; +LINE600T7 PO; +LOTE5GEL OP; +NEO/3.5O18 OP; +ONDN4T PO
--- NOTE | 2017-11-14 10:36 | Physical Therapy Evaluation ---
PT Evaluation-General Medical Diagnosis Admission Date 11/14/17 Medical Diagnosis: Debility, UTI Onset Date: Nov 11, 2017 Therapy Diagnosis Therapy Diagnosis: Impaired functional mobility, strength, activity tolerance, and balance Height/Weight Height (Feet): 5 Height (Inches): 10.00 Weight (Pounds): 218 Weight (Ounces): 4.0 Precautions Precautions/Isolations: Fall Prevention, Standard Precautions Weight Bear Status Right Lower Extremity: Right Full Weight Bearing Left Lower Extremity: Left Full Weight Bearing Referral Physician: Ollie Guadalupe MD Reason for Referral: Evaluation/Treatment Medical History Pertinent Medical History: Atrial Fib, COPD, DM, GERD, HTN, Macular Degenertion , Neuropathy, PVD, Renal Insufficiency, Smoking Additional Medical History UTI, confusion, pneumonia, sleep apnea, high cholesterol, neuropathy in feet and hands, chronic constipation, cataracts, macular degeneration, PAIMIUT, generalized weaknes, stage 3 chronic kidney disease, dementia, CA Surgery: eye, orthopedic, prostatectomy, tonsillectomy, vascular Current History Pt had recent history of falls and developed a UTI and EMS was called to take pt to hospital. Social History Home: Multilevel Current Living Status: Spouse Entry Into Home: Stairs With Railing PT Steps Into Home: 4 PT Steps Inside Home: 12 Pt and do not use the upstairs. Prior/Core FIM Prior Level of Function Functional [place] Measure 0=Not Assessed/NA 4=Minimal Assistance 1=Total Assistance 5=Supervision or Setup 2=Maximal Assistance 6=Modified [place] 3=Moderate Assistance 7=Complete [place] Bed Mobility: 6 Transfers (B,C,W/C) (FIM): 6 Gait: 6 Locomotion: 6 Pt used a FWW to ambulate in the home. PT Evaluation-Current Subjective Pt is laying in bed pre eval and c/o pain at 5/10 in the BLE at this shins. Pt agrees to PT. Pain Numeric Pain Scale: 0-No Pain Location: No Pain Reported Pt/Family Goals Mod I at home with use of FWW Objective Patient Orientation: Normal For Age Attachments: IV ROM/Strength ROM Lower Extremities WFL livan Strenght Lower Extremities Grossly 4/5 livan with ankle DF 3+/5 livan Integumentary/Posture Integumentary Patient has skin lesions on bilateral knees, see nursing notes Neuromuscular (Tone, Coordination, Reflexes) NT Sensory Vision: Cataracts and macualr degeneration Hearing: [place] Sensation Right Lower Extremit: Impaired Sensation Left Lower Extremity: Impaired Sensation Lower Extremities Impaired sensation at L5, S1 demonstrated by lack of sensation at castro and big toe. Transfers Functional [place] Measure 0=Not Assessed/NA 4=Minimal Assistance 1=Total Assistance 5=Supervision or Setup 2=Maximal Assistance 6=Modified [place] 3=Moderate Assistance 7=Complete IndependenceIRFPAI Quality Coding Scale 6 Independent with activity with or without an assistive device 5 Patient requires set up or clean up by helper. Patient completes activity by themselves 4 Supervision or touching assist (CGA). [place] provide cues , steadying assist 3 The helper provides less than half the effort to complete the activity 2 The helper provides more than half the effort to complete the activity 1 Dependent. The helper does all the effort to complete an activity 7 Patient refused to complete or attempt activity 9 The patient did not perform the activity before the current illness or injury 88 Not attempted due to Medical conditions or safety concerns Transfers (B, C, W/C) (FIM): 4 Scootin Rollin Roll Left to Right (QC): 4 Supine to/from Sit: 4 Sit to/from Stand: 4 Sit to Lying (QC): 4 Lying to Sitting/Side of Bed(Q: 4 Sit to Stand (QC): 4 Chair/Eyt-tr-Dwnrm Xfer(QC): 4 Car Transfer (QC): 4 Pt requires more than one attempt to arise from sitting often. Pt requires verbal cues for guidance and hand placement. Patient performs bed mobility and transfers with CGA. Gait Does the Patient Walk?: Yes Mode of Locomotion: Walk Anticipated Mode of Locomotion: Walk Gait (FIM): 4 Distance (FIM): 3=150 ft Walk 10 feet (QC): 4 Walk 50 ft with 2 Turns(QC): 4 Walk 150 ft (QC): 4 Walking 10ft/uneven surface-QC: 4 Distance: 200 feet x1, 75 feet x1 Gait Level of Assist: 4 Gait Persons Needed: 1 Gait Assistive Device: FWW Comments/Gait Description Pt ambulates with flat foot pattern and requires directional cues due to poor eyesight. He can ambulate 200' with a rolling walker with CGA, including 50' with at least 2 turns of 90 degrees and 10' over an uneven surface. Wheelchair Training Does the Pt Use a Wheelchair?: No Stairs Stairs (FIM): 1 #of Steps: 1 Level of Assist: 4 1 Step (curb) (QC): 4 4 Steps (QC): 88 Assistive Device: Walker 12 Steps (QC): 88 If not tested on admit;explain More than one step not attempted due to poor balance. CGA Balance Sitting Static: Normal Sitting Dynamic: Normal Standing Static: Fair Standing Dynamic: Fair Picking up an Object (QC): 88 Special Test Comments Picking up object from floor attempted, but unsuccessful. [place] Balance Assessment: , indicating high fall risk Treatment 12 min with 3 workload on the NuStep Assessment/Needs Pt demonstrates general weakness, specifically livan ankle DF. Pt ambulates with flat foot and reciprocal gait pattern and requires directional cues. Pt will benefit from formal PT services to address these impairments. Rehab Potential: Fair Post Rehab Potential-Barriers: Dementia, confusion PT Short Term Goals Short Term Goals Time Frame: Nov 21, 2017 Transfers (B,C,W/C) (FIM): 5 Gait (FIM): 5 Distance (FIM): 3=150 ft Gait Distance Comment: 300 feet Gait Level of Assist: 5 Gait Assistive Device: FWW Stairs (FIM): 2 # of Steps: 4 Stairs Level of Assist: 4 PT Custodial Goals Custodial Goals PT Store Deli Manager Goals Time Frame: Dec 05, 2017 Transfers (B,C,W/C) (FIM): 6 Sit to Lying (QC): 6 Lying-Sitting on Side/Bed(QC): 6 Sit to Stand (QC): 6 Rollin Roll Left to Right (QC): 6 Chair/Dob-nh-Gkqyj Xfer(QC): 6 Car Transfer (QC): 4 Does the Patient Walk: Yes Gait (FIM): 6 Gait distance (FIM): 3=150 ft Distance: 300 feet Walk 10 feet (QC): 6 Walk 10ft-Uneven Surface(QC): 6 Walk 50ft with 2 Turns (QC): 6 Walk 150 ft (QC): 6 Gait Level of Assist: 6 Gait Assistive Device: FWW Stairs (FIM): 2 # of Steps: 4 1 Step (curb) (QC): 4 4 Steps (QC): 4 12 Steps (QC): 88 Stairs Level Of Assist: 5 Picking up an Object (QC): 5 PT Plan Problem List Problem List: Activity Tolerance, Functional Strength, Safety, Balance, Gait, Transfer, Bed Mobility, ROM Treatment/Plan Treatment Plan: Continue Plan of Care Treatment Plan: Bed Mobility, Education, Functional Activity Amanda, Functional Strength, Group Therapy, Gait, Safety, Therapeutic Exercise, Transfers Treatment Duration: Dec 05, 2017 Frequency: At least 5 of 7 days/Wk (IRF) Estimated Hrs Per Day: 1.5 hours per day Patient and/or Family Agrees t: Yes Safety Risks/Education Patient Education: Gait Training, Transfer Techniques, Steps, Correct Positioning, Safety Issues Teaching Recipient: Patient Teaching Methods: Demonstration, Discussion Response to Teaching: Reinforcement Needed Discharge Recommendations Plan Pt will perform bed mobility and transfer training, gait and stair training, strength and activity tolerance training, balance training and education in order to promote modified independence at home. Therapy D/C Recommendations: Home w/ Family Support Equpiment Recommendations-D/C: Front Wheeled Walker Time/GCodes Time In: 1005 Time Out: 1100 Total Billed Treatment Time: 55 Total Billed Treatment 1 visit 12 min EX 43 min JOHN MCKEON PT Nov 14, 2017 10:36
--- NOTE | 2017-11-14 11:38 | PM&R Post Admission Assessment ---
Post Admission Physician Asses The preadmission screen agrees with the post admission assessment that the patient is a good candidate for inpatient rehabilitation. The patient will have a comprehensive program of inpatient rehabilitation with a goal of maximizing level of functional independence prior to discharge home with spouse and HHC. The patient will have PT/OT ninety minutes per day, each discipline, five days a week for gait, strengthening, conditioning, balance, ADLs, any patient/family/caregiver training as necessary. Speech therapy to do cognitive assessment and treat as indicated. Rehabilitation nursing to assist with bowel, bladder, skin, wound care, medication administration, pain management. Batch Room Technician to assist with discharge planning, community reentry. SCD's for DVT prophylaxis. He appears to be well motivated to participate in three hours of therapy a day. He should be able to tolerate three hours of therapy a day from a medical standpoint. He should benefit from the three hours of therapy a day. He has a reasonable discharge plan, reasonable discharge rehabilitation goals and a supportive family. He has various comorbidities that need to be closely monitored with medications and treatments adjusted on a daily basis as needed. These include: IDDM Diabetic foot ulcer ESBL UTI Chronic anticoagulation for A FIB VIPIN on Home cpap CKD Stage 3 Copd HTN GERD Barriers to discharge for this patient who had been independent prior to this are for him to be modified independent to supervision for ADLs and mobility skills prior to discharge home with spouse and HHC, so as to lessen the burden of the caregivers. Risks for this patient include: 1. Fall 2. Fracture 3. DVT 4. Pulmonary embolism 5. Wound infection 6. Skin breakdown 7. Contractures 8. Poorly controlled pain 9. Urinary retention 10. Recurrent UTI 11. Respiratory infection 12. Aspiration 13. Poorly controlled DM 14.Poorly controlled A FIB Estimated Length of Stay: 17 days Prognosis: Rehab prognosis appears good for goal of discharge home with spouse and HHC modified independent to supervision for ADLs and mobility skills.The patient had been Modified Independent with a walker at home but did not always use it TRINITY COLBERT MD Nov 14, 2017 11:38
--- NOTE | 2017-11-14 12:14 | Occupational Therapy Eval ---
OT Evaluation-General/PLF Medical Diagnosis Admission Date Nov 14, 2017 at 10:27 Medical Diagnosis: Debility, UTI Onset Date: Nov 11, 2017 Therapy Diagnosis Therapy Diagnosis: Weakness, Decreased ADL skills Height/Weight Height (Feet): 5 Height (Inches): 10.00 Weight (Pounds): 218 Weight (Ounces): 4.0 Precautions Precautions/Isolations: Fall Prevention, Standard Precautions Weight Bear Status Weight Bearing Restriction: Weight Bearing/Tolerated Referral Physician: Ollie Guadalupe MD Referral Reason: Activity Tolerance, Self Care, Evaluation/Treatment, Strengthening/ROM Medical History Pertinent Medical History: Atrial Fib, COPD, DM, GERD, HTN, Macular Degenertion , Neuropathy, PVD, Renal Insufficiency, Smoking Additional Medical History Pt. has a wound on left foot and bilateral abrasions on knees from fall. Pt. also has macular degeneration. Current History Pt. has had multiple falls at home. Pt. states that he can't "feel" his feet on the floor. Reviewed History: Yes Social History Home: Multilevel Current Living Status: Spouse Entry Into Home: Stairs With Railing Steps Into Home: 4 Steps Inside Home: 12 Pt. states that he does not use the stairs inside anymore. Now sleeps on the main level. ADL-Prior Level of Function ADL PLOF Comments Pt. states that he was independent with daily tasks before this hospitalization. DME/Equipment: Bath Chair, Shower DME/Equipment Comments Pt. states that he had a handicap shower built with grab bars. OT Current Status Subjective No pain reported. Appearance Pt. up in chair. Agrees to shower. Mental Status/Objective Patient Orientation: Person Pt. is somewhat [place] and has limited vision per family. Current Upper Extremity ROM Pt. demonstrates approximately 90 degrees shoulder flexion. ADL-Treatment Functional [place] Measure 0=Not Assessed/NA 4=Minimal Assistance 1=Total Assistance 5=Supervision or Setup 2=Maximal Assistance 6=Modified [place] 3=Moderate Assistance 7=Complete IndependenceIRFPAI Quality Coding Scale 6 Independent with activity with or without an assistive device 5 Patient requires set up or clean up by helper. Patient completes activity by themselves 4 Supervision or touching assist (CGA). [place] provide cues , steadying assist 3 The helper provides less than half the effort to complete the activity 2 The helper provides more than half the effort to complete the activity 1 Dependent. The helper does all the effort to complete an activity 7 Patient refused to complete or attempt activity 9 The patient did not perform the activity before the current illness or injury 88 Not attempted due to Medical conditions or safety concerns Bathing (FIM): 4 (Min assist in stance to rinse self off. CGA in stance for balance. Pt. requires continual cues for safety, as he will attempt to stand and lift his leg to wash.) Shower/Bathe Self (QC): 4 Lower Body Dressing (FIM): 3 (No street clothing available. Pt. able to get shorts off with CGA for balance and cues for safety. Requires mod assist overall to doff/don socks as he has a bandage on left foot. At one point, required cues to leave the bandage on his foot, as he was going to remove it with the sock.) Lower Body Dressing (QC): 3 On/Off Footwear (QC): 3 Toileting (FIM): 4 (Pt. incontinent of urine in brief. however, able to wash self in shower and remove brief with CGA for balance.) Toileting Hygiene (QC): 4 Transfers (B, C, W/C) (FIM): 4 Toilet/Commode Transfer (FIM): 4 Toilet Transfer (QC): 4 Shower Transfer (FIM): 4 Education OT Patient Education: Modified ADL techniques, Progress toward Goal/Update tx plan, Purpose of tx/functional activities, Reviewed precautions, Rehab process, Transfer techniques Teaching Recipient: Patient Teaching Methods: Demonstration, Discussion Response to Teaching: Verbalize Understanding, Return Demonstration OT Short Term Goals Short Term Goals Time Frame: Nov 21, 2017 Eating(FIM): 5 Grooming(FIM): 5 Bathing(FIM): 5 Upper Body Dressing(FIM): 5 Lower Body Dressing(FIM): 5 Toileting(FIM): 5 Transfers (B,C,W/C) (FIM): 5 Toilet/Commode Transfer(FIM): 5 Shower Transfer(FIM): 5 Additional Short Term Goals: 1-Demonstrate ADL Tasks, 2-Verbalize Understanding , 3-ImproveStrength/Amanda 1=Demonstrate adherence to instructed precautions during ADL tasks. 2=Patient will verbalize/demonstrate understanding of assistive devices/ modifications for ADL. 3=Patient will improve strength/tolerance for activity to enable patient to perform ADL's. OT Divemaster Goals Fpc Goals Time Frame: Dec 05, 2017 Eating (FIM): 6 Eating (QC): 6 Groomin Oral Hygiene (QC): 6 Bathing(FIM): 5 Shower/Bathe Self (QC): 5 Upper Body Dressing(FIM): 6 Upper Body Dressing (QC): 6 Lower Body Dressing(FIM): 6 Lower Body Dressing (QC): 6 On/Off Footwear (QC): 6 Toileting(FIM): 6 Toileting Hygiene (QC): 6 Transfers (B,C,W/C) (FIM): 6 Toilet/Commode Transfer(FIM): 6 Toilet/Commode Transfer (QC): 6 Shower Transfer(FIM): 5 Additional Goals: 1-Demonstrate ADL Tasks, 2-Verbalize Understanding, 3- ImproveStrength/Amanda 1=Demonstrate adherence to instructed precautions during ADL tasks. 2=Patient will verbalize/demonstrate understanding of assistive devices/ modifications for ADL. 3=Patient will improve strength/tolerance for activity to enable patient to perform ADL's. OT Education/Plan Problem List/Assessment Assessment: Decreased Activ Tolerance, Decreased Safety Aware, Dependent Transfers, Impaired Bed Mobility, Impaired Funct Balance, Impaired I ADL's, Impaired Self-Care Skills Discharge Recommendations Plan/Recommendations: Continue POC Therapy D/C Recommendations: Home w/ Family Support, Occupational Therapy Home Care Barriers to Progress Vision and safety awareness Target Placement Home with family support. Treatment Plan/Plan of Care Treatment,Training & Education: Yes Patient would benefit from OT for education, treatment and training to promote independence in ADL's, mobility, safety and/or upper extremity function for ADL' s. Plan of Care: ADL Retraining, Functional Mobility, Group Exercise/Act as Ind, UE Funct Exercise/Act Treatment Duration: Dec 05, 2017 Frequency: At least 5 of 7 days/Wk (IRF) Estimated Hrs Per Day: 1.5 hours per day Agreement: Yes Rehab Potential: Fair Time/GCodes Start Time: 11:00 Stop Time: 12:00 Total Time Billed (hr/min): 60 Billed Treatment Time 1, EVM x 15minutes, ADL x 45minutes BASIM LYNN OT Nov 14, 2017 12:13
--- NOTE | 2017-11-14 13:06 | HISTORY AND PHYSICAL ---
DATE OF SERVICE: 11/14/2017 CHIEF COMPLAINT: Difficulty with walking. HISTORY OF PRESENT ILLNESS: The patient is an 82-year-old retired male, who lives with his spouse in [place] who was admitted to the ER to [facility] on 11/13/2017 due to recurrent falls at home with increased confusion associated with a UTI. The patient was continued on his antibiotic for UTI and has been followed by Dr. Farrell for diabetic foot ulcer on the left heel and rt fourth toe. His insulin was adjusted.He has contact precautions due to UTI. Therapies were begun. He was felt to be appropriate for inpatient rehabilitation unit. The patient presents here with his spouse. His spouse indicates that the patient had been Modified Independent with a walker, but at night when he gets up to use the bathroom, he does not always use it. Currently, he is min assist for transfers, min assist for ambulation with a front wheel walker. He has bandages over his both knees. He is set up for eating and grooming, min assist for upper body dressing, mod assist for lower body dressing, bathing and toileting. He is appropriate and able to follow commands.He has mild memory loss and is [place]. PAST MEDICAL HISTORY: VIPIN, he has CPAP at home, macular degeneration, hypertension, GERD, insulin-dependent diabetes mellitus, COPD, atrial fibrillation, diabetic peripheral neuropathy, peripheral vascular disease, renal insufficiency, tobaccoism, BPH, recurrent falls. PAST SURGICAL HISTORY: No prior joint replacement or spinal surgery. ALLERGIES: SULFA, TRIMETHOPRIM. FAMILY HISTORY: Colon cancer, diabetes mellitus, lung cancer, sarcoidosis. 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 PCP: Dr. Hugo Alexander. REVIEW OF SYSTEMS: Ten point review of systems significant for frequent falls, irregular heartbeat, chronic sore on the left foot, numbness of feet, weakness and increased confusion with UTI. MEDICATIONS: ASA 81 mg p.o. daily, Plavix 75 mg p.o. daily, digoxin 0.125 mg p.o. daily, fish oil 500 mg p.o. daily, Cozaar 25 mg p.o. daily, [place] 60 mg p.o. daily, Coreg 18.75 mg p.o. b.i.d. Omnicef 300 mg p.o. b.i.d. Pepcid 20 mg p.o. b.i.d.; NovoLog insulin 70/30, 14 units subq at 2:00 p.m. and 20 units subcu daily at bedtime. Zyvox 600 mg p.o. b.i.d., Zofran 4 mg p.o. b.i.d., K-Dur 40 mEq p.o. b.i.d., Vibramycin 100 mg p.o. b.i.d. Furosemide 40 mg p.o. b.i.d., Coumadin 5 mg alternating with 7.5 mg every other day, Lortab 10.5 tablet p.o. q. 4 hours p.r.n. moderate pain, Krill oil 500 mg p.o. daily, Lotemax eye drops three times a day, Antibiotic eye ointment apply daily to affected area. PHYSICAL EXAMINATION: GENERAL: Significant for a pleasant male appearing stated age, lying in bed, no acute distress. VITAL SIGNS: Blood pressure 150/80, respirations 18, pulse 70. He is afebrile. O2 sat 98% on room air. HEENT: Vision, speech, hearing grossly intact. No oral lesion is noted. NECK: Supple without mass. CARDIOVASCULAR: Regular rhythm. RESPIRATORY: Chest is clear. ABDOMEN: Soft, nontender. Bowel sounds present. EXTREMITIES: He has dressings over both knees. Skin tears and chronic diabetic foot ulcer in the left heel and fourth rt toe. MUSCULOSKELETAL: Functional active range of motion in all 4 extremities. NEUROLOGIC: Coordination is impaired. Strength is 4/5 other than at the ankles 3+/5. Strength 4/5 in both upper limbs. Cognition alert and oriented times but as per ST has mild memory loss. Sensation is diminished to touch in both feet. ASSESSMENT: 1. Ambulatory dysfunction associated with recurrent falls secondary to diabetic peripheral neuropathy. 2. Urinary tract infection under treatment associated with increased confusion and with contact precautions. 3. Skin breakdown both knees due to recurrent falls. 4. Diabetic left heel and fourth rt toe ulcer followed by Dr. Farrell. 5. Type 2 diabetes mellitus, insulin-dependent with diabetic chronic kidney disease. 6. Obstructive sleep apnea on home CPAP. 7. Chronic kidney disease, stage III. 8. Chronic obstructive pulmonary disease. 9. Atrial fibrillation, chronically anticoagulated on Coumadin. 10. Hypertension, controlled with medication. 11. Gastroesophageal reflux disease without esophagitis, chronic. 12. Mild dementia, probable. PLAN: The patient is admitted to inpatient rehabilitation unit for a comprehensive program of inpatient rehabilitation with goal of maximizing level of functional independence prior to discharge to home with spouse and home health care. The patient on PT, OT, 90 minutes per day each discipline, 5 days a week as outlined in the post-admission physician evaluation with goal of maximizing level of functional dependence prior to discharge. Speech therapy to do cognitive assessment and treat as indicated. Rehabilitation nursing to assist with bowel, bladder, skin, wound care, medication administration, pain management, monitor Accu-Cheks q.i.d. and adjust medications as necessary. Check INR in a.m. and adjust Coumadin as necessary. Follow up with Dr. Hugo Alexander, PCP as per his schedule, therapy with cardiac and fall precautions. community health outreach worker to assist with discharge planning, community reentry. Consult Dr. Farrell for wound care. Respiratory therapy to assist patient with CPAP as necessary. Continue current antibiotics until stop date. Orders per Dr. Abraham orders. ESTIMATED LENGTH OF STAY: 17 days. PROGNOSIS: Rehab prognosis appears good for goal of discharging home with spouse, modified independent to supervision with ADLs and mobility skills. DIET: Carb consistent. CODE STATUS: Full code. Job ID: [id number] DocumentID: [id number] Dictated Date: 11/14/2017 11:53:20 Clerical Assistant Date: 11/14/2017 13:05:25 Dictated By: TRINITY COLBERT MD [facility]
[2017-11-14] MEDS: HYDROcodone/APAP 7.5 MG/325 MG (LORTAB, LORCET PLUS) TABLET PO PRN (13:10)
[2017-11-14] MEDS: NEO/POLY/DEX (MAXITROL) OPHTH OINT 3.5 GM OP SCH (13:11)
[2017-11-14] MEDS: inSUlin Protamine/ASPart 70/30 1 UNIT/0.01 ML DOSE SC SCH ×2 (13:28→21:19)
--- NOTE | 2017-11-14 13:35 | ST Cognitive Linguistic Eval ---
Speech Evaluation-General Medical Diagnosis Debility, UTI Onset Date: Nov 11, 2017 Therapy Diagnosis Therapy Diagnosis: Mild Cognitive Impairment/Confusion Precautions Precautions/Isolations: Fall Prevention, Standard Precautions Referral Referring Physician: Dr. Ollie Guadalupe Reason for Referral: Evaluation/Treatment Cognitive Evaluation Medical History Pertinent Medical History: Atrial Fib, COPD, DM, GERD, HTN, Macular Degenertion , Neuropathy, PVD, Renal Insufficiency, Smoking Reviewed History: Yes Social History Current Living Status: Spouse Speech PLF-Current Status Prior Level of Function Per patient, "I lose my idea and get confused." The patient reported these occasions of confusion have occurred for several months, however, appear to have worsened lately. Subjective The patient was laying in bed upon entrance. The patient greeted the clinician and was agreeable to participation in the cognitive evaluation. Language Eval: Auditory Comprehends Simple Yes/No Ques: Functional Indent/Objects Multiple [place]: Functional Ident/Pics in Multiple [place]: Functional Follows 1-Step Commands: Functional Follows Complex Directions: Mild Follows General Conversations: Mild (The patient intermittently "lost track" of his train of though, requiring repetition of conversational topics and statements.) Language Eval: Verbal Language Completes Spontaneous Greeting: Functional Produces Auto, Serial Info: Functional Imitates Simple Words/Phrases: Functional Word Finding: Functional Requests Basic Needs: Functional States Basic Personal Info: Functional Language Evaluation: Reading Comprehends Single Nouns: Functional The patient is able to read large, bold front. The patient has macular degeneration and is unable to read small font or words at a distance. To note, the patient cannot read his in-room white board, therefore, orientation information should be shared with the patient daily. Cognitive Patient Orientation The patient was independently oriented to self, location, home location, city, rationale for therapy, month, year, and day of week. Objective Cognitive Domain Attention: WNL Memory: Mild Problem Solving: Mild Objective Impression The patient demonstrates a mild cognitive impairment, most notably in the area of memory. Communication/Social Cognition Comprehension: 4 Expression: 4 Social Interaction: 5 Problem Solvin Memory: 3 Speech Patient Assess Expression of Ideas/Wants: Exhibits (3) Understanding [place] Content: Usually Understands (3) Brief Interview-Mental Status: Yes Repetition of Three Words: Three (3) Temporal Orientation: Year: Correct (3) Temporal Orientation: Month: Accurate within 5 days(2) Temporal Orientation: Day: Correct (1) Recall : Wear to say "Sock": No, could not recall (0) Recall : Color: Yes, after cueing (1) Recall : Bed: Yes,after cueing (1) Speech Short Term Goals Short Term Goals Short Term Goals 1. The patient will recall two functional memory strategies for use at home with mild clinician prompting. 2. The patient will recall three items immediately and following a five minute delay. 3. The patient will display 80% accuracy with safety problem solving and sequencing of ADL tasks. Time Frame-STG: One Week Speech Venetian Blind Worker Goals Venetian Blind Worker Goals 1. The patient will demonstrate improved cognitive linguistic skills for increased safety and function with ADL's in the least restrictive setting. Time Frame: Two Weeks Comprehension: 5 Expression: 5 Social Interaction: 5 Problem Solvin Memory: 4 Speech-Plan Treatment Plan Speech Therapy Treatment Plan: Continue Plan of Care Continue skilled speech pathology to target functional communication and problem solving. Treatment Duration: Nov 28, 2017 Frequency: Modified Program (IRF) (4 to 5 times per week.) Estimated Hrs Per Day: .5 hour per day Rehab Potential: Fair Safety Risks/Education Teaching Recipient: Patient Teaching Methods: Discussion Response to Teaching: Verbalize Understanding Education Topics Provided: Results, Recommendations, Plan of Care Time Speech Therapy Time In: 13:00 Speech Therapy Time Out: 13:15 Total Billed Time: 15 Billed Treatment Time 1, SOL FARLEY Nov 14, 2017 13:35
[2017-11-14] MEDS ORDERED: inSUlin Protamine/ASPart 70/30 1 UNIT/0.01 ML DOSE SC SCH ×2 (14:00→21:00)
--- NOTE | 2017-11-14 14:52 | Therapy Group Daily Note ---
Therapy Daily Group Note Patient Education Topic Other List Below (safety and memory strategies) Exercises LE Seated Exercise, UE Exercise Other/Notes Pt. participated in group PT OT session this date. Pt. ambulated to from with FWW min assist and verbal instructions. Pts. were social , introduced themselves and shared their favorite memory. Focus of education was on memory and safety as well as activity using images . Pts. also lead LE and UE seated exercises using written illustrated exercise cards. This pt. requiring much assist to complete this. Pts. shared their personal experiences with memory strategies etc. Pt. ambulated back to his room , up in recline chair with alarm insitu, matthews at hand. Start Time: 13:00 Stop Time: 14:20 Total Billed Treatment Time: 80 Total Billed Treatment 1,GRP TREVER BURNS TEMPLER HEAD Nov 14, 2017 14:52
[2017-11-14] MEDS: KCL 20 MEQ TAB (K-DUR) PO SCH (17:40)
[2017-11-14] MEDS: warFARin 7.5 MG (COUMADIN) TAB PO SCH (17:40)
[2017-11-14] MEDS: FUROSEMIDE 40 MG (LASIX) TAB PO SCH (17:40)
[2017-11-14] MEDS: DOXYCYCLINE 100 MG (VIBRAMYCIN) TABLET PO SCH (17:48)
[2017-11-14 18:40] VITALS: BP 169/89
--- NOTE | 2017-11-14 19:11 | Wound Care Assessment ---
Wound Care Assessment Date Seen by Provider: Nov 14, 2017 Time Seen by Provider: 19:10 Chief Complaint L heel ulcer HPI 82 year old male with DFU L heel and R 4th toe. History of vascular disease. Smoking Status: Former Smoker Recreational Drug Use: No Alcohol Use: Denies Use Exam Vital Signs Date Time Temp Pulse Resp B/P (MAP) Pulse Ox O2 Delivery O2 Flow Rate FiO2 11/14/17 11:33 Room Air Capillary Refill : Results Laboratory Tests 11/14/17 16:04: Glucometer 139H JONATHAN CROUCH MD Nov 14, 2017 19:11
[2017-11-14] MEDS ORDERED: PATIENT MAY USE OWN MED,SINGLE MED PO SCH (20:00)
[2017-11-14] MEDS: ONDANSETRON 4 MG (ZOFRAN) ORAL DISSOLVE TAB PO SCH (21:18)
[2017-11-14] MEDS: CARVEDILOL 12.5 MG (COREG) TABLET PO SCH (21:18)
[2017-11-14] MEDS: FAMOTIDINE 20 MG (PEPCID) TABLET PO SCH (21:18)
[2017-11-14] MEDS: CEFDINIR 300 MG (OMNICEF) CAP PO SCH (21:18)
[2017-11-14] MEDS: LOTEPREDNOL OP SCH (21:18)
[2017-11-14] MEDS: LINEZOLID (ZYVOX) 600 MG TAB PO SCH (21:18)
[2017-11-14] MEDS: FERROUS SULF 325 MG (IRON) TAB PO SCH (21:18)
[2017-11-15 04:07] VITALS: BP 155/79
[2017-11-15 06:24] LABS: INR 2.8 (0.8-1.4); PROTHROMBIN TIME PATIENT 29.3 SEC (12.2-14.7)
[2017-11-15] MEDS: FUROSEMIDE 40 MG (LASIX) TAB PO SCH ×2 (06:38→17:13)
[2017-11-15] MEDS: DOXYCYCLINE 100 MG (VIBRAMYCIN) TABLET PO SCH ×2 (06:38→17:13)
[2017-11-15] MEDS: OMEGA 3 (FISH OIL) 1000 MG CAP PO SCH (06:38)
[2017-11-15] MEDS: KCL 20 MEQ TAB (K-DUR) PO SCH ×2 (06:38→17:13)
[2017-11-15] MEDS: FERROUS SULF 325 MG (IRON) TAB PO SCH ×2 (09:00→20:12)
[2017-11-15] MEDS: CARVEDILOL 12.5 MG (COREG) TABLET PO SCH ×2 (09:00→20:12)
[2017-11-15] MEDS: CLOPIDOGREL 75 MG (PLAVIX) TABLET PO SCH (09:00)
[2017-11-15] MEDS: CEFDINIR 300 MG (OMNICEF) CAP PO SCH ×2 (09:00→20:12)
[2017-11-15] MEDS: ONDANSETRON 4 MG (ZOFRAN) ORAL DISSOLVE TAB PO SCH ×2 (09:00→20:12)
[2017-11-15] MEDS: TROSPIUM 20 MG (SANCTURA) TAB PO SCH (09:01)
[2017-11-15] MEDS: DIGOXIN 0.125 MG (LANOXIN) TAB PO SCH (09:01)
[2017-11-15] MEDS: LOSARTAN 25 MG (COZAAR) TAB PO SCH (09:01)
[2017-11-15] MEDS: ASPIRIN E.C. 81 MG (ECOTRIN) TAB PO SCH (09:01)
[2017-11-15] MEDS: LINEZOLID (ZYVOX) 600 MG TAB PO SCH ×2 (09:01→20:12)
[2017-11-15] MEDS: FAMOTIDINE 20 MG (PEPCID) TABLET PO SCH ×2 (09:01→20:12)
[2017-11-15] MEDS: LOTEPREDNOL OP SCH ×3 (09:02→20:11)
[2017-11-15] MEDS: NEO/POLY/DEX (MAXITROL) OPHTH OINT 3.5 GM OP SCH (09:02)
--- NOTE | 2017-11-15 12:48 | Physical Therapy Daily Note ---
PT Daily Note-Current Subjective Pt. up in recliner agrees to Rx. States he is frustrated by having to call for assist to get up to go to bathroom b/c when he needs to go he has to go so urgently Pain Numeric Pain Scale: 0-No Pain Transfers Functional [place] Measure 0=Not Assessed/NA 4=Minimal Assistance 1=Total Assistance 5=Supervision or Setup 2=Maximal Assistance 6=Modified [place] 3=Moderate Assistance 7=Complete IndependenceIRFPAI Quality Coding Scale 6 Independent with activity with or without an assistive device 5 Patient requires set up or clean up by helper. Patient completes activity by themselves 4 Supervision or touching assist (CGA). [place] provide cues , steadying assist 3 The helper provides less than half the effort to complete the activity 2 The helper provides more than half the effort to complete the activity 1 Dependent. The helper does all the effort to complete an activity 7 Patient refused to complete or attempt activity 9 The patient did not perform the activity before the current illness or injury 88 Not attempted due to Medical conditions or safety concerns Transfers (B, C, W/C) (FIM): 5 Scootin Sit to/from Stand: 5 Weight Bearing Right Lower Extremity: Right Full Weight Bearing Left Lower Extremity: Left Full Weight Bearing Gait Training Does the Patient Walk?: Yes Gait (FIM): 4 Distance (FIM): 3=150 ft (150,75x2) Gait Level of Assist: 4 Gait Persons Needed: 1 Gait Assistive Device: FWW fatigue and min SOB with activity Exercises Seated Therapy Exercises: Ankle pumps, Sit to stand, Long arc quads, Hip flexion Seated Reps: 15 NuStep Minutes: 10 NuStep Workload: 2 Assessment Current Status: Good Progress PT Short Term Goals Short Term Goals Time Frame: Nov 21, 2017 Transfers (B,C,W/C) (FIM): 5 Gait (FIM): 5 Distance (FIM): 3=150 ft Gait Distance Comment: 300 feet Gait Level of Assist: 5 Gait Assistive Device: FWW Stairs (FIM): 2 # of Steps: 4 Stairs Level of Assist: 4 PT Party Demonstrator Goals Senior Living Goals PT Party Demonstrator Goals Time Frame: Dec 05, 2017 Transfers (B,C,W/C) (FIM): 6 Sit to Lying (QC): 6 Lying-Sitting on Side/Bed(QC): 6 Sit to Stand (QC): 6 Rollin Roll Left to Right (QC): 6 Chair/Pdv-if-Nllys Xfer(QC): 6 Car Transfer (QC): 4 Does the Patient Walk: Yes Gait (FIM): 6 Gait distance (FIM): 3=150 ft Distance: 300 feet Walk 10 feet (QC): 6 Walk 10ft-Uneven Surface(QC): 6 Walk 50ft with 2 Turns (QC): 6 Walk 150 ft (QC): 6 Gait Level of Assist: 6 Gait Assistive Device: FWW Stairs (FIM): 2 # of Steps: 4 1 Step (curb) (QC): 4 4 Steps (QC): 4 12 Steps (QC): 88 Stairs Level Of Assist: 5 Picking up an Object (QC): 5 PT Plan Treatment/Plan Treatment Plan: Continue Plan of Care Treatment Plan: Bed Mobility, Education, Functional Activity Amanda, Functional Strength, Group Therapy, Gait, Safety, Therapeutic Exercise, Transfers Treatment Duration: Dec 05, 2017 Frequency: At least 5 of 7 days/Wk (IRF) Estimated Hrs Per Day: 1.5 hours per day Patient and/or Family Agrees t: Yes Safety Risks/Education Patient Education: Gait Training, Transfer Techniques Teaching Recipient: Patient Teaching Methods: Demonstration, Discussion Response to Teaching: Verbalize Understanding, Return Demonstration, Reinforcement Needed Time/GCodes Time In: 1000 Time Out: 1025 Total Billed Treatment Time: 25 Total Billed Treatment 1,GT15m,EX10m G Codes Necessary: TREVER Martínez CORPORATE REAL ESTATE SPECIALIST Nov 15, 2017 12:48
[2017-11-15] MEDS: inSUlin Protamine/ASPart 70/30 1 UNIT/0.01 ML DOSE SC SCH ×2 (13:05→20:12)
[2017-11-15] MEDS: warFARin 5 MG (COUMADIN) TAB PO SCH (17:15)
[2017-11-15 17:52] VITALS: BP 137/77
[2017-11-15] MEDS: HYDROcodone/APAP 7.5 MG/325 MG (LORTAB, LORCET PLUS) TABLET PO PRN (20:12)
[2017-11-16 05:03] VITALS: BP 152/65
[2017-11-16] MEDS: KCL 20 MEQ TAB (K-DUR) PO SCH ×2 (06:33→17:08)
[2017-11-16] MEDS: FUROSEMIDE 40 MG (LASIX) TAB PO SCH ×2 (06:33→17:08)
[2017-11-16] MEDS: OMEGA 3 (FISH OIL) 1000 MG CAP PO SCH (06:33)
[2017-11-16] MEDS: DOXYCYCLINE 100 MG (VIBRAMYCIN) TABLET PO SCH ×2 (06:33→17:08)
[2017-11-16] MEDS: CARVEDILOL 12.5 MG (COREG) TABLET PO SCH ×2 (08:04→21:15)
[2017-11-16] MEDS: CEFDINIR 300 MG (OMNICEF) CAP PO SCH ×2 (08:04→21:15)
[2017-11-16] MEDS: FERROUS SULF 325 MG (IRON) TAB PO SCH ×2 (08:04→21:15)
[2017-11-16] MEDS: ONDANSETRON 4 MG (ZOFRAN) ORAL DISSOLVE TAB PO SCH ×2 (08:04→21:15)
[2017-11-16] MEDS: CLOPIDOGREL 75 MG (PLAVIX) TABLET PO SCH (08:04)
[2017-11-16] MEDS: NEO/POLY/DEX (MAXITROL) OPHTH OINT 3.5 GM OP SCH (08:04)
[2017-11-16] MEDS: FAMOTIDINE 20 MG (PEPCID) TABLET PO SCH ×2 (08:04→21:15)
[2017-11-16] MEDS: DIGOXIN 0.125 MG (LANOXIN) TAB PO SCH (08:04)
[2017-11-16] MEDS: LOTEPREDNOL OP SCH ×3 (08:04→21:19)
[2017-11-16] MEDS: TROSPIUM 20 MG (SANCTURA) TAB PO SCH (08:04)
[2017-11-16] MEDS: ASPIRIN E.C. 81 MG (ECOTRIN) TAB PO SCH (08:05)
[2017-11-16] MEDS: LINEZOLID (ZYVOX) 600 MG TAB PO SCH ×2 (08:05→21:15)
[2017-11-16] MEDS: LOSARTAN 25 MG (COZAAR) TAB PO SCH (08:05)
[2017-11-16] MEDS: inSUlin Protamine/ASPart 70/30 1 UNIT/0.01 ML DOSE SC SCH ×2 (14:04→21:19)
[2017-11-16] MEDS: warFARin 7.5 MG (COUMADIN) TAB PO SCH (17:08)
[2017-11-16 17:30] VITALS: BP 154/80
[2017-11-17 02:00] VITALS: BP 162/84
[2017-11-17] MEDS: FUROSEMIDE 40 MG (LASIX) TAB PO SCH ×2 (06:26→16:48)
[2017-11-17] MEDS: DOXYCYCLINE 100 MG (VIBRAMYCIN) TABLET PO SCH ×2 (06:26→16:48)
[2017-11-17] MEDS: OMEGA 3 (FISH OIL) 1000 MG CAP PO SCH (06:26)
[2017-11-17] MEDS: KCL 20 MEQ TAB (K-DUR) PO SCH ×2 (06:27→16:48)
--- NOTE | 2017-11-17 09:17 | Occupational Ther Daily Note ---
OT Current Status-Daily Note Subjective Pt alert, sitting in recliner. Pt was adamant earlier this morning with nrsg that he was going to get cleaned up. SHAW explained that pt needed to do some ADLs with OT for reassessments. Pt agreed to therapy. No c/o pain. Mental Status/Objective Patient Orientation: Person, Place, Time, Situation Functional [place] Measure 0=Not Assessed/NA 4=Minimal Assistance 1=Total Assistance 5=Supervision or Setup 2=Maximal Assistance 6=Modified [place] 3=Moderate Assistance 7=Complete [place] ADL-Treatment Pt able to don/doff shoes by self. Functional [place] Measure 0=Not Assessed/NA 4=Minimal Assistance 1=Total Assistance 5=Supervision or Setup 2=Maximal Assistance 6=Modified [place] 3=Moderate Assistance 7=Complete IndependenceIRFPAI Quality Coding Scale 6 Independent with activity with or without an assistive device 5 Patient requires set up or clean up by helper. Patient completes activity by themselves 4 Supervision or touching assist (CGA). [place] provide cues , steadying assist 3 The helper provides less than half the effort to complete the activity 2 The helper provides more than half the effort to complete the activity 1 Dependent. The helper does all the effort to complete an activity 7 Patient refused to complete or attempt activity 9 The patient did not perform the activity before the current illness or injury 88 Not attempted due to Medical conditions or safety concerns Nrsg had reported that pt wanted to stand by himself to complete grooming at sink. Nrsg explained to pt that he was unsteady and not safe to be completed by himself. Other Treatment Pt ambulated to therapy gym with CGA using FWW. Completed arm bike for 15 min starting out at 25 mcgill resistance then decreased to 20 mcgill resistance to increase strength and activity tolerance for daily functional tasks. Pt then completed resistive pegs with 1# wt attached to wrists, 50 pegs. Pt then ambulated back to room. After therapy, pt sitting in recliner with safety measures in place. Call light/phone in reach. All needs met in room. OT Short Term Goals Short Term Goals Time Frame: Nov 21, 2017 Eating(FIM): 5 Grooming(FIM): 5 Bathing(FIM): 5 Upper Body Dressing(FIM): 5 Lower Body Dressing(FIM): 5 Toileting(FIM): 5 Transfers (B,C,W/C) (FIM): 5 Toilet/Commode Transfer(FIM): 5 Shower Transfer(FIM): 5 Additional Short Term Goals: 1-Demonstrate ADL Tasks, 2-Verbalize Understanding , 3-ImproveStrength/Amanda 1=Demonstrate adherence to instructed precautions during ADL tasks. 2=Patient will verbalize/demonstrate understanding of assistive devices/ modifications for ADL. 3=Patient will improve strength/tolerance for activity to enable patient to perform ADL's. OT Custodial Goals Custodial Goals Time Frame: Dec 05, 2017 Eating (FIM): 6 Eating (QC): 6 Groomin Oral Hygiene (QC): 6 Bathing(FIM): 5 Shower/Bathe Self (QC): 5 Upper Body Dressing(FIM): 6 Upper Body Dressing (QC): 6 Lower Body Dressing(FIM): 6 Lower Body Dressing (QC): 6 On/Off Footwear (QC): 6 Toileting(FIM): 6 Toileting Hygiene (QC): 6 Transfers (B,C,W/C) (FIM): 6 Toilet/Commode Transfer(FIM): 6 Toilet/Commode Transfer (QC): 6 Shower Transfer(FIM): 5 Comprehension(FIM): 5 Expression (FIM): 5 Social Interaction(FIM): 5 Problem Solving(FIM): 4 Memory(FIM): 4 Additional Goals: 1-Demonstrate ADL Tasks, 2-Verbalize Understanding, 3- ImproveStrength/Amanda 1=Demonstrate adherence to instructed precautions during ADL tasks. 2=Patient will verbalize/demonstrate understanding of assistive devices/ modifications for ADL. 3=Patient will improve strength/tolerance for activity to enable patient to perform ADL's. OT Education/Plan Discharge Recommendations Plan/Recommendations: Continue POC Treatment Plan/Plan of Care Patient would benefit from OT for education, treatment and training to promote independence in ADL's, mobility, safety and/or upper extremity function for ADL' s. Plan of Care: ADL Retraining, Functional Mobility, Group Exercise/Act as Ind, UE Funct Exercise/Act Treatment Duration: Dec 05, 2017 Frequency: At least 5 of 7 days/Wk (IRF) Estimated Hrs Per Day: 1.5 hours per day Agreement: Yes Rehab Potential: Fair Time/GCodes Start Time: 09:00 Stop Time: 10:00 Total Time Billed (hr/min): 60 Billed Treatment Time 1 visit-FA 1 (8 min) EX 3 (52 min) PIYUSH RAZO Nov 17, 2017 09:17
--- NOTE | 2017-11-17 09:24 | Speech Therapy Daily Note ---
Speech Daily Progress Note Subjective Date Seen by Provider: Nov 17, 2017 Time Seen by Provider: 08:30 The patient was seated upright in a recliner upon entrance. The patient greeted the clinician and was agreeable to participation in the cognitive treatment session. Per patient, he continues to struggle with "recent stuff." The patient reported he often forgets specific family members have already passed and refers to them as if they are here. The patient stated he recently visited with his how he "talked to his sibling" but he knows his sibling passed a couple of months ago. Objective The patient completed the Hertel Cognitive Assessment (MoCA) to detail difficulties the patient possesses: - Naming: The patient was able to name three of three black and white photographs. - Memory: The patient was able to recall four of five single words immediately and three of five words following a five minute delay. - Attention: The patient was able to repeat five digits forward, three digits in reverse, identification of a specific letter, and serial seven subtraction. - Language: The patient was able to repeat short phrases and displayed a minimal deficit in word-finding tasks. - Abstraction: The patient was able to identify similarities between two items. - Orientation: The patient was oriented to month, year, day, place, and city. The patient was unable to complete visuospatial/executive tasks due to vision difficulty. The patient displayed a result of +22/25 correlating to a minimal to mild cognitive deficit. Assessment Assessment Current Status: Good Progress Treatment Plan Continue Plan of Care Communication Comprehension: 4 Expression: 4 Social Cognition Social Interaction: 5 Problem Solvin Memory: 4 Speech Short Term Goals Short Term Goals Short Term Goals 1. The patient will recall two functional memory strategies for use at home with mild clinician prompting. 2. The patient will recall three items immediately and following a five minute delay. 3. The patient will display 80% accuracy with safety problem solving and sequencing of ADL tasks. Time Frame-STG: One Week Speech Detention Goals Detention Goals 1. The patient will demonstrate improved cognitive linguistic skills for increased safety and function with ADL's in the least restrictive setting. Time Frame: Two Weeks Comprehension: 5 Expression: 5 Social Interaction: 5 Problem Solvin Memory: 4 Speech-Plan Treatment Plan Speech Therapy Treatment Plan: Continue Plan of Care Continue skilled speech pathology to target functional problem solving and memory. Treatment Duration: Nov 28, 2017 Frequency: Modified Program (IRF) (4 to 5 times per week.) Estimated Hrs Per Day: .5 hour per day Rehab Potential: Fair Safety Risks/Education Teaching Recipient: Patient Teaching Methods: Discussion Response to Teaching: Verbalize Understanding Education Topics Provided: Results, Recommendations, Plan of Care Time Speech Therapy Time In: 08:30 Speech Therapy Time Out: 09:00 Total Billed Time: 30 Billed Treatment Time 1, SOL WILSON Nov 17, 2017 09:24
[2017-11-17] MEDS: FERROUS SULF 325 MG (IRON) TAB PO SCH ×3 (09:56→21:19)
[2017-11-17] MEDS: ASPIRIN E.C. 81 MG (ECOTRIN) TAB PO SCH (09:56)
[2017-11-17] MEDS: TROSPIUM 20 MG (SANCTURA) TAB PO SCH (09:56)
[2017-11-17] MEDS: FAMOTIDINE 20 MG (PEPCID) TABLET PO SCH ×2 (09:56→21:19)
[2017-11-17] MEDS: CEFDINIR 300 MG (OMNICEF) CAP PO SCH ×2 (09:57→21:19)
[2017-11-17] MEDS: DIGOXIN 0.125 MG (LANOXIN) TAB PO SCH (09:57)
[2017-11-17] MEDS: ONDANSETRON 4 MG (ZOFRAN) ORAL DISSOLVE TAB PO SCH ×2 (09:57→21:19)
[2017-11-17] MEDS: LINEZOLID (ZYVOX) 600 MG TAB PO SCH ×2 (09:57→21:19)
[2017-11-17] MEDS: CARVEDILOL 12.5 MG (COREG) TABLET PO SCH ×2 (09:58→21:20)
[2017-11-17] MEDS: LOSARTAN 25 MG (COZAAR) TAB PO SCH (09:58)
[2017-11-17] MEDS: CLOPIDOGREL 75 MG (PLAVIX) TABLET PO SCH (10:15)
[2017-11-17] MEDS: LOTEPREDNOL OP SCH ×3 (10:16→21:20)
[2017-11-17] MEDS: NEO/POLY/DEX (MAXITROL) OPHTH OINT 3.5 GM OP SCH (10:16)
--- NOTE | 2017-11-17 11:31 | Physical Therapy Daily Note ---
PT Daily Note-Current Subjective Pt. agrees to Rx. 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 Pain Numeric Pain Scale: 0-No Pain Mental Status Patient Orientation: Normal For Age Transfers Functional [place] Measure 0=Not Assessed/NA 4=Minimal Assistance 1=Total Assistance 5=Supervision or Setup 2=Maximal Assistance 6=Modified [place] 3=Moderate Assistance 7=Complete IndependenceIRFPAI Quality Coding Scale 6 Independent with activity with or without an assistive device 5 Patient requires set up or clean up by helper. Patient completes activity by themselves 4 Supervision or touching assist (CGA). [place] provide cues , steadying assist 3 The helper provides less than half the effort to complete the activity 2 The helper provides more than half the effort to complete the activity 1 Dependent. The helper does all the effort to complete an activity 7 Patient refused to complete or attempt activity 9 The patient did not perform the activity before the current illness or injury 88 Not attempted due to Medical conditions or safety concerns Transfers (B, C, W/C) (FIM): 5 Scootin Rollin Supine to/from Sit: 5 Sit to/from Stand: 5 Weight Bearing Right Lower Extremity: Right Full Weight Bearing Left Lower Extremity: Left Full Weight Bearing Gait Training Gait (FIM): 5 Distance (FIM): 3=150 ft (175,150) Gait Level of Assist: 5 Gait Persons Needed: 1 Gait Assistive Device: FWW Wheelchair Training Does the Pt Use a Wheelchair?: No Exercises Seated Therapy Exercises: Ankle pumps, Sit to stand, Long arc quads, Hip flexion Seated Reps: 12 NuStep Minutes: 10 NuStep Workload: 3 Assessment Current Status: Good Progress increased funct mob, increased cognition, improved strength PT Short Term Goals Short Term Goals Time Frame: Nov 21, 2017 Transfers (B,C,W/C) (FIM): 5 Gait (FIM): 5 Distance (FIM): 3=150 ft Gait Distance Comment: 300 feet Gait Level of Assist: 5 Gait Assistive Device: FWW Stairs (FIM): 2 # of Steps: 4 Stairs Level of Assist: 4 PT Senior Medical Transcriptionist Goals Senior Medical Transcriptionist Goals PT Chcf Goals Time Frame: Dec 05, 2017 Transfers (B,C,W/C) (FIM): 6 Sit to Lying (QC): 6 Lying-Sitting on Side/Bed(QC): 6 Sit to Stand (QC): 6 Rollin Roll Left to Right (QC): 6 Chair/Zvn-vr-Wwazm Xfer(QC): 6 Car Transfer (QC): 4 Does the Patient Walk: Yes Gait (FIM): 6 Gait distance (FIM): 3=150 ft Distance: 300 feet Walk 10 feet (QC): 6 Walk 10ft-Uneven Surface(QC): 6 Walk 50ft with 2 Turns (QC): 6 Walk 150 ft (QC): 6 Gait Level of Assist: 6 Gait Assistive Device: FWW Stairs (FIM): 2 # of Steps: 4 1 Step (curb) (QC): 4 4 Steps (QC): 4 12 Steps (QC): 88 Stairs Level Of Assist: 5 Picking up an Object (QC): 5 PT Plan Treatment/Plan Treatment Plan: Continue Plan of Care Treatment Plan: Bed Mobility, Education, Functional Activity Amanda, Functional Strength, Group Therapy, Gait, Safety, Therapeutic Exercise, Transfers Treatment Duration: Dec 05, 2017 Frequency: At least 5 of 7 days/Wk (IRF) Estimated Hrs Per Day: 1.5 hours per day Patient and/or Family Agrees t: Yes Safety Risks/Education Patient Education: Gait Training, Transfer Techniques, Issued Written HEP, Correct Positioning, Safety Issues Teaching Recipient: Patient Teaching Methods: Demonstration, Discussion Response to Teaching: Verbalize Understanding, Return Demonstration, Reinforcement Needed Time/GCodes Time In: 1030 Time Out: 1130 Total Billed Treatment Time: 60 Total Billed Treatment 1,EX25m,GT15m,FA20m G Codes Necessary: TREVER Martínez INKER Nov 17, 2017 11:31
[2017-11-17] MEDS: inSUlin Protamine/ASPart 70/30 1 UNIT/0.01 ML DOSE SC SCH ×2 (14:12→21:20)
--- NOTE | 2017-11-17 14:37 | Therapy Group Daily Note ---
Therapy Daily Group Note Patient Education Topic Other List Below (purpose and practices of rehab unit) Exercises LE Seated Exercise, UE Exercise, Other (core and coordiantion ) Other/Notes Pt. participated in group PT OT session. Pt. ambulated to and from with SBA and FWW. Pt. very friendly, very social and contributed well to discussion of rehab unit and expectations. Pts. all shared their place of , and favorite rainy day activity, this pt. states he likes a good movie or a nap. Seated U&L ther ex for core as well as coordination . Pt. returned to room with SBA. In room with call matthews at hand. Start Time: 13:00 Stop Time: 14:05 Total Billed Treatment Time: 65 Total Billed Treatment 1,GRP TREVER BURNS RUBBER INSULATOR Nov 17, 2017 14:37
--- NOTE | 2017-11-17 16:16 | PM & R (SOAP) Progress Note ---
Subjective Time Seen by Provider: 16:10 Subjective/Events-last exam Patient was seen in his room this afternoon Patient SBA for transfers INR and accucheks noted Appreciate Dr Esteves note Review of Systems Neurological: Weakness, Numbness Objective Exam Last Set of Vital Signs Vital Signs Date Time Temp Pulse Resp B/P (MAP) Pulse Ox O2 Delivery O2 Flow Rate FiO2 11/17/17 12:07 4.50 11/17/17 09:00 Room Air 11/17/17 02:00 97.9 95 18 162/84 (110) 98 Capillary Refill : I&O Intake and Output 11/17/17 00:00 Intake Total 1680 ml Balance 1680 ml Intake Oral 1680 ml # Voids 11 General: Alert, Oriented X3, No Acute Distress HEENT: Atraumatic, PERRLA, EOMI, Mucous Memb Moist/[place] Neck: Supple, No JVD Lungs: Clear to Auscultation Heart: Regular Rate Abdomen: Normal Bowel Sounds, Soft, No Tenderness Extremities: Other (trace edeam) Skin: Other (Diabetic ulcer left heel and rt fourth toe) Neuro: Other (Generalized weakness with impaired sensation in feet) Results Lab Laboratory Tests 11/15/17 05:33: Prothrombin Time 29.3H, INR Comment 2.8H 11/15/17 05:39: Glucometer 79 11/15/17 15:20: Glucometer 185H 11/16/17 02:22: Glucometer 46*L 11/16/17 02:37: Glucometer 61L 11/16/17 03:03: Glucometer 124H 11/16/17 06:20: Glucometer 120H 11/16/17 16:00: Glucometer 167H 11/17/17 04:34: Glucometer 124H Assessment/Plan Assessment 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
[2017-11-17 17:45] VITALS: BP 156/77
[2017-11-17] MEDS: warFARin 7.5 MG (COUMADIN) TAB PO SCH (18:52)
[2017-11-18 05:35] VITALS: BP 171/89
[2017-11-18] MEDS: DOXYCYCLINE 100 MG (VIBRAMYCIN) TABLET PO SCH ×2 (06:17→17:59)
[2017-11-18] MEDS: FUROSEMIDE 40 MG (LASIX) TAB PO SCH ×2 (06:17→17:59)
[2017-11-18] MEDS: OMEGA 3 (FISH OIL) 1000 MG CAP PO SCH (06:17)
[2017-11-18] MEDS: KCL 20 MEQ TAB (K-DUR) PO SCH ×2 (06:17→17:59)
--- NOTE | 2017-11-18 08:58 | Speech Therapy Daily Note ---
Speech Daily Progress Note Subjective Date Seen by Provider: Nov 18, 2017 Time Seen by Provider: 08:20 The patient was seated upright in recliner upon entrance. The patient greeted the clinician upon entrance and was agreeable to participation in the cognitive evaluation. The patient denied pain, however, stated he didn't sleep well the night before. The patient was unable to state the reasoning behind his poor sleep. Objective Functional Safety Problem Solving: The patient was provided pictures depicting specific safety concerns in a common home environment. The patient was asked to identify the safety concerns and provide an appropriate solution to each problem. The patient displayed good accuracy with this task, demonstrating approximately 80% accuracy with mild clinician verbal cueing. Assessment Assessment Current Status: Good Progress Treatment Plan Continue Plan of Care Communication Comprehension: 4 Expression: 4 Social Cognition Social Interaction: 5 Problem Solvin Memory: 4 Speech Short Term Goals Short Term Goals Short Term Goals 1. The patient will recall two functional memory strategies for use at home with mild clinician prompting. 2. The patient will recall three items immediately and following a five minute delay. 3. The patient will display 80% accuracy with safety problem solving and sequencing of ADL tasks. Time Frame-STG: One Week Speech Molder Helper Goals Care Home Goals 1. The patient will demonstrate improved cognitive linguistic skills for increased safety and function with ADL's in the least restrictive setting. Time Frame: Two Weeks Comprehension: 5 Expression: 5 Social Interaction: 5 Problem Solvin Memory: 4 Speech-Plan Treatment Plan Speech Therapy Treatment Plan: Continue Plan of Care Continue skilled speech pathology to target functional problem solving and memory. Treatment Duration: Nov 28, 2017 Frequency: Modified Program (IRF) (4 to 5 times per week.) Estimated Hrs Per Day: .5 hour per day Rehab Potential: Fair Safety Risks/Education Teaching Recipient: Patient Teaching Methods: Discussion Response to Teaching: Verbalize Understanding Education Topics Provided: Safety Problem Solving Time Speech Therapy Time In: 08:20 Speech Therapy Time Out: 08:50 Total Billed Time: 30 Billed Treatment Time 1, VALENTINA HENNINGIrvinSOL ST Nov 18, 2017 08:58
[2017-11-18] MEDS: ASPIRIN E.C. 81 MG (ECOTRIN) TAB PO SCH (09:08)
[2017-11-18] MEDS: DIGOXIN 0.125 MG (LANOXIN) TAB PO SCH (09:08)
[2017-11-18] MEDS: CEFDINIR 300 MG (OMNICEF) CAP PO SCH ×2 (09:08→21:30)
[2017-11-18] MEDS: LINEZOLID (ZYVOX) 600 MG TAB PO SCH ×2 (09:09→21:30)
[2017-11-18] MEDS: CLOPIDOGREL 75 MG (PLAVIX) TABLET PO SCH (09:09)
[2017-11-18] MEDS: FAMOTIDINE 20 MG (PEPCID) TABLET PO SCH (09:09)
[2017-11-18] MEDS: LOSARTAN 25 MG (COZAAR) TAB PO SCH (09:09)
[2017-11-18] MEDS: ONDANSETRON 4 MG (ZOFRAN) ORAL DISSOLVE TAB PO SCH ×2 (09:09→21:30)
[2017-11-18] MEDS: FERROUS SULF 325 MG (IRON) TAB PO SCH ×2 (09:09→21:30)
[2017-11-18] MEDS: CARVEDILOL 12.5 MG (COREG) TABLET PO SCH ×2 (09:10→21:30)
[2017-11-18] MEDS: TROSPIUM 20 MG (SANCTURA) TAB PO SCH (09:11)
[2017-11-18] MEDS: LOTEPREDNOL OP SCH ×3 (09:30→21:29)
[2017-11-18] MEDS: NEO/POLY/DEX (MAXITROL) OPHTH OINT 3.5 GM OP SCH (09:40)
--- NOTE | 2017-11-18 10:58 | PM & R (SOAP) Progress Note ---
Subjective Time Seen by Provider: 08:05 Subjective/Events-last exam Patient was seen in his room this AM and then on common area ambulating with OT with SBA with a WW at this time 1055 Objective Exam Last Set of Vital Signs Vital Signs Date Time Temp Pulse Resp B/P (MAP) Pulse Ox O2 Delivery O2 Flow Rate FiO2 11/18/17 05:35 97.3 84 20 171/89 (116) 97 Room Air 11/17/17 12:07 4.50 Capillary Refill : I&O Intake and Output 11/18/17 00:00 Intake Total 1900 ml Balance 1900 ml Intake Oral 1900 ml # Voids 8 General: Alert, Oriented X3, No Acute Distress HEENT: Atraumatic, PERRLA, EOMI, Mucous Memb Moist/[place] Neck: Supple, No JVD Lungs: Clear to Auscultation Heart: Regular Rate Abdomen: Normal Bowel Sounds, Soft, No Tenderness Extremities: Other (trace edeam) Skin: Other (Diabetic ulcer left heel and rt fourth toe) Neuro: Other (Generalized weakness with impaired sensation in feet) Results Lab Laboratory Tests 11/15/17 15:20: Glucometer 185H 11/16/17 02:22: Glucometer 46*L 11/16/17 02:37: Glucometer 61L 11/16/17 03:03: Glucometer 124H 11/16/17 06:20: Glucometer 120H 11/16/17 16:00: Glucometer 167H 11/17/17 04:34: Glucometer 124H 11/17/17 16:46: Glucometer 158H 11/17/17 21:19: Glucometer 169H 11/18/17 06:14: Glucometer 89 Assessment/Plan Assessment 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
--- NOTE | 2017-11-18 11:54 | Individualized Plan of Care ---
Individualized Plan of Care Rehab Nursing IPOC Order Admission Date Nov 14, 2017 at 10:27 Current Orders Orders Admission-Acute Rehab Unit (11/14/17 10:27) Admission Arrival Bed Request (11/14/17 10:27) Consult Physician (11/14/17 10:27) Admission-Acute Rehab Unit (11/14/17 10:56) Vital Signs: Routine 08,16,00 (11/14/17 10:56) Sequential Compression Device 08,20 (11/14/17 10:56) Sack Lifter-Inpt Rehab (11/14/17 10:56) Rehab Nursing Orders-Ipoc (11/14/17 10:56) Physical Therapy Rehab Orders (11/14/17 10:56) Occupational Therapy Rehab Ord (11/14/17 10:56) Speech Therapy Rehab Orders (11/14/17 10:56) Turn And Reposition Q2HR (11/14/17 10:56) Intake & Output 06,14,22 (11/14/17 10:56) Accucheck Daily DAILY (11/14/17 10:56) Weekly Weight (Lbs) WEEK (11/14/17 10:56) Cho 60g/M 1snack (16-2000 Bennie) (11/14/17 Lunch) Aspirin Enteric Coated Tablet (Ecotrin T (11/15/17 09:00) Carvedilol Tablet (Coreg Tablet) (11/14/17 21:00) Cefdinir Capsule (Omnicef Capsule) (11/14/17 21:00) Clopidogrel Tablet (Plavix Tablet) (11/15/17 09:00) Digoxin Tablet (Lanoxin Tablet) (11/15/17 09:00) Doxycycline Hyclate Tablet (Vibramycin T (11/14/17 17:00) Famotidine Tablet (Pepcid Tablet) (11/14/17 21:00) Ferrous Sulfate Tablet (Feosol Tablet) (11/14/17 21:00) Furosemide Tablet (Lasix Tablet) (11/14/17 17:00) Hydrocodone/Apap 7.5/325 Tab (Lortab 7. (11/14/17 11:15) Insulin Protamine/Aspart 70/30 (Novolog (11/14/17 14:00) Insulin Protamine/Aspart 70/30 (Novolog (11/14/17 21:00) [place] 3 Capsule (Fish Oil Capsule) (11/15/17 07:00) Linezolid Tablet (Zyvox Tablet) (11/14/17 21:00) Losartan Tablet (Cozaar Tablet) (11/15/17 09:00) Ondansetron Oral Dissolve Tab (Zofran (11/14/17 21:00) Potassium Chloride (Tablet) (K Dur Table (11/14/17 17:00) Trospium Tablet (Sanctura Tablet) (11/15/17 09:00) Pharmacy Communication (Pharmacy Communi (11/14/17 11:30) Accucheck Achs ACHS (11/14/17 11:22) Protime With Inr (11/15/17 06:22) Consult Physician (11/14/17 11:24) Insulin Protamine/Aspart 70/30 (Novolog (11/14/17 14:00) Insulin Protamine/Aspart 70/30 (Novolog (11/14/17 21:00) [place]/Poly/Dex Ophthalmic Oint (Maxitrol O (11/14/17 11:55) Warfarin Tablet (Coumadin Tablet) (11/14/17 18:00) Warfarin Tablet (Coumadin Tablet) (11/15/17 18:00) Ambulate TID (11/14/17 12:18) Sequential Compression Device 08,20 (11/14/17 12:18) Dvt/Vte Risk - Notifiy Physici 08 (11/14/17 12:18) Isolation Central Supply Req (11/14/17 13:05) Patient Visit (11/14/17 ) Speech Sound Lang Comp (11/14/17 ) Pharmacy Consult/Message (11/14/17 13:48) Patient Visit (11/14/17 ) Pt Eval High Complexity (11/14/17 ) Exercise Therap, Ea 15 Min (11/14/17 ) Advanced Wound Care Dressing O DAILY PRN (11/14/17 19:06) Advanced Wound Care Dressing O DAILY (11/14/17 19:08) Patient May Use Own Med,Single (Patient (11/14/17 20:00) Loteprednol (Non-Formulary) (Lotemax 0.5 (11/14/17 21:00) Patient Visit (11/14/17 ) Therapeutic, Group (11/14/17 ) Patient Visit (11/15/17 ) Exercise Therap, Ea 15 Min (11/15/17 ) Gait Training, Ea 15 Min (11/15/17 ) Patient Visit (11/17/17 ) Treat. Speech/Lang/Voice (11/17/17 ) Patient Visit (11/17/17 ) Exercise Therap, Ea 15 Min (11/17/17 ) Functional Activities, Ea 15 (11/17/17 ) Gait Training, Ea 15 Min (11/17/17 ) Therapeutic, Group (11/17/17 ) Patient Visit (11/17/17 ) Patient Visit (11/18/17 ) Treat. Speech/Lang/Voice (11/18/17 ) Famotidine Tablet (Pepcid Tablet) (11/19/17 09:00) Rehab Nursing Orders: Diseage Management, Edu in Press Rel Techn, Hydration Management, Nutrition Management, Pain Management Other Nursing Orders: Monitor for urinary retention and constipation PT IPOC Problem List: Activity Tolerance, Functional Strength, Safety, Balance, Gait, Transfer, Bed Mobility, ROM Treatment Plan: Continue Plan of Care Bed Mobility, Education, Functional Activity Amanda, Functional Strength, Group Therapy, Gait, Safety, Therapeutic Exercise, Transfers Treatment Duration: Dec 05, 2017 Frequency: At least 5 of 7 days/Wk (IRF) Estimated Hrs Per Day: 1.5 hours per day OT IPOC Problems: Decreased Activ Tolerance, Decreased Safety Aware, Dependent Transfers, Impaired Bed Mobility, Impaired Funct Balance, Impaired I ADL's, Impaired Self-Care Skills OT Treatment, Training and Edu: Yes Plan of Care: ADL Retraining, Functional Mobility, Group Exercise/Act as Ind, UE Funct Exercise/Act Treatment Duration: Dec 05, 2017 Frequency: At least 5 of 7 days/Wk (IRF) Estimated Hrs Per Day: 1.[address] IPOC Speech Therapy Treatment Plan: Continue Plan of Care Treatment Duration: Nov 28, 2017 Frequency: Modified Program (IRF) (4 to 5 times per week.) Estimated Hrs Per Day: .5 hour per day Sack Lifter/Case Mgmt Sack Lifter/Case Managemen: Discharge Planning, Patient/Family Counseling Physician IPOC Medical Issues being managed closely and that require the 24 hour availability of a physician: DM,ESBL UTI ,HTN.A FIB, CKD stage 3 IGC code 16 Etiologic DX Weakness/deconditioned Medical Issues: Bowel/Bladder Function, DVT Prophylaxis, Falls Precautions, Fluid/Electrolyte/Nutrition Balance, Infection Protection, Pain Management, Wound Care, Other (List) (as per above) Brief Synthesis of Preadmission Screen, Post-Admission Evaluation, and Therapy Evaluations: 82 yo male with recent UTI with deconditioning and recurrent fallls admitted for ongoing therapies and care.Had been Modified Independent with a walker at home but did not always use the walker Lives with spouse [facility] followed by Dr Farrell for diabetic foot ulcer DM A FIB on coumadin COPD HTN Medical Prognosis: good Anticipated Length of Stay: 3-3-18 Rehab Goals Modified Independent to superviusion for adls and mobility skills Anticipated discharge destinat: Home with spouse and [facility] TRINITY COLBERT MD Nov 18, 2017 11:54
--- NOTE | 2017-11-18 12:13 | Physical Therapy Daily Note ---
PT Daily Note-Current Subjective Pt sitting in recliner upon arrival. Pt appears confused at times during tx. Pt agrees to PT. Mental Status Patient Orientation: Person, Place Transfers Functional [place] Measure 0=Not Assessed/NA 4=Minimal Assistance 1=Total Assistance 5=Supervision or Setup 2=Maximal Assistance 6=Modified [place] 3=Moderate Assistance 7=Complete IndependenceIRFPAI Quality Coding Scale 6 Independent with activity with or without an assistive device 5 Patient requires set up or clean up by helper. Patient completes activity by themselves 4 Supervision or touching assist (CGA). [place] provide cues , steadying assist 3 The helper provides less than half the effort to complete the activity 2 The helper provides more than half the effort to complete the activity 1 Dependent. The helper does all the effort to complete an activity 7 Patient refused to complete or attempt activity 9 The patient did not perform the activity before the current illness or injury 88 Not attempted due to Medical conditions or safety concerns Scootin Sit to/from Stand: 4 Sit to Stand (QC): 4 Weight Bearing Right Lower Extremity: Right Full Weight Bearing Left Lower Extremity: Left Full Weight Bearing Gait Training Does the Patient Walk?: Yes Distance (FIM): 3=150 ft Distance: 250' Walk 10 feet (QC): 5 Walk 50 ft with 2 Turns(QC): 5 Walk 150 ft (QC): 5 Gait Level of Assist: 5 Gait Assistive Device: FWW Pt gets SOA easily and has trouble recovering. Pt needs VC for hand placement and staying within FWW. Wheelchair Training Does the Pt Use a Wheelchair?: No Exercises Seated Therapy Exercises: Ankle pumps, Long arc quads, Hip flexion, Kicking activity Treatments Pt transfers from recliner to standing using FWW at CGA-Min A. Pt uses restroom then ambulates in hallway using FWW at close SBA. Pt needs short break before ambulating to Therapy Gym. Pt completes Seated Ex in chair. Pt takes short rest then returns to room to rest in recliner. Pt has all needs met at end of tx. Assessment Current Status: Good Progress Pt is confused and fatigues easy. Pt has difficulty following directions. PT Short Term Goals Short Term Goals Time Frame: Nov 21, 2017 Transfers (B,C,W/C) (FIM): 5 Gait (FIM): 5 Distance (FIM): 3=150 ft Gait Distance Comment: 300 feet Gait Level of Assist: 5 Gait Assistive Device: FWW Stairs (FIM): 2 # of Steps: 4 Stairs Level of Assist: 4 PT Breakdown Person Goals Breakdown Person Goals PT Breakdown Person Goals Time Frame: Dec 05, 2017 Transfers (B,C,W/C) (FIM): 6 Sit to Lying (QC): 6 Lying-Sitting on Side/Bed(QC): 6 Sit to Stand (QC): 6 Rollin Roll Left to Right (QC): 6 Chair/Aiq-jg-Tkdoh Xfer(QC): 6 Car Transfer (QC): 4 Does the Patient Walk: Yes Gait (FIM): 6 Gait distance (FIM): 3=150 ft Distance: 300 feet Walk 10 feet (QC): 6 Walk 10ft-Uneven Surface(QC): 6 Walk 50ft with 2 Turns (QC): 6 Walk 150 ft (QC): 6 Gait Level of Assist: 6 Gait Assistive Device: FWW Stairs (FIM): 2 # of Steps: 4 1 Step (curb) (QC): 4 4 Steps (QC): 4 12 Steps (QC): 88 Stairs Level Of Assist: 5 Picking up an Object (QC): 5 PT Plan Problem List Problem List: Activity Tolerance, Functional Strength, Safety, Balance, Gait, Transfer Treatment/Plan Treatment Plan: Continue Plan of Care Treatment Plan: Bed Mobility, Education, Functional Activity Amanda, Functional Strength, Group Therapy, Gait, Safety, Therapeutic Exercise, Transfers Treatment Duration: Dec 05, 2017 Frequency: At least 5 of 7 days/Wk (IRF) Estimated Hrs Per Day: 1.5 hours per day Patient and/or Family Agrees t: Yes Safety Risks/Education Patient Education: Gait Training, Transfer Techniques, Correct Positioning, Safety Issues Teaching Recipient: Patient Teaching Methods: Discussion Response to Teaching: Reinforcement Needed Time/GCodes Time In: 915 Time Out: 1000 Total Billed Treatment 1, GT x2 (30m) & EX (15m) TYRONE OLMOS ANTIQUE FURNITURE RESTORER Nov 18, 2017 12:13
--- NOTE | 2017-11-18 12:50 | Occupational Ther Daily Note ---
OT Current Status-Daily Note Subjective Pt seen in room, up in recliner, agreeable to OT. Pt declined ADLs or need for toileting. Pt reported pain 0/10. Appearance Alert, cooperative Mental Status/Objective Functional [place] Measure 0=Not Assessed/NA 4=Minimal Assistance 1=Total Assistance 5=Supervision or Setup 2=Maximal Assistance 6=Modified [place] 3=Moderate Assistance 7=Complete [place] ADL-Treatment Functional [place] Measure 0=Not Assessed/NA 4=Minimal Assistance 1=Total Assistance 5=Supervision or Setup 2=Maximal Assistance 6=Modified [place] 3=Moderate Assistance 7=Complete IndependenceIRFPAI Quality Coding Scale 6 Independent with activity with or without an assistive device 5 Patient requires set up or clean up by helper. Patient completes activity by themselves 4 Supervision or touching assist (CGA). [place] provide cues , steadying assist 3 The helper provides less than half the effort to complete the activity 2 The helper provides more than half the effort to complete the activity 1 Dependent. The helper does all the effort to complete an activity 7 Patient refused to complete or attempt activity 9 The patient did not perform the activity before the current illness or injury 88 Not attempted due to Medical conditions or safety concerns Other Treatment Pt walked with CGA, FWW to gym at slow pace. He reported that he usually walked with a cane but just recently started using a walker regularly "and I was pretty casual about it." In the gym, he was able to get down and up from chair with arms, taking extra time. He did bilat UE activities with 1# weight on each arm, working with arc activity with short extension, graded clothespins, large pegs, nut and bolt board. He needed extra time (and some repetition) with all activities due in part to reported neuropathy in both hands and also decreased vision from macular degeneration. He required frequent recovery periods but O2 sats remained in the 95-99% range. His heart rate varied but did go down with rest. he walked back to room and was left up in recliner, chair alarm on, lunch ordered and all needs met. Education OT Patient Education: Exercise program, Purpose of tx/functional activities Teaching Recipient: Patient Teaching Methods: Demonstration, Discussion Response to Teaching: Verbalize Understanding, Return Demonstration, Reinforcement Needed OT Short Term Goals Short Term Goals Time Frame: Nov 21, 2017 Eating(FIM): 5 Grooming(FIM): 5 Bathing(FIM): 5 Upper Body Dressing(FIM): 5 Lower Body Dressing(FIM): 5 Toileting(FIM): 5 Transfers (B,C,W/C) (FIM): 5 Toilet/Commode Transfer(FIM): 5 Shower Transfer(FIM): 5 Additional Short Term Goals: 1-Demonstrate ADL Tasks, 2-Verbalize Understanding , 3-ImproveStrength/Amanda 1=Demonstrate adherence to instructed precautions during ADL tasks. 2=Patient will verbalize/demonstrate understanding of assistive devices/ modifications for ADL. 3=Patient will improve strength/tolerance for activity to enable patient to perform ADL's. OT Intermediate Goals Almond Blancher Operator Goals Time Frame: Dec 05, 2017 Eating (FIM): 6 Eating (QC): 6 Groomin Oral Hygiene (QC): 6 Bathing(FIM): 5 Shower/Bathe Self (QC): 5 Upper Body Dressing(FIM): 6 Upper Body Dressing (QC): 6 Lower Body Dressing(FIM): 6 Lower Body Dressing (QC): 6 On/Off Footwear (QC): 6 Toileting(FIM): 6 Toileting Hygiene (QC): 6 Transfers (B,C,W/C) (FIM): 6 Toilet/Commode Transfer(FIM): 6 Toilet/Commode Transfer (QC): 6 Shower Transfer(FIM): 5 Comprehension(FIM): 5 Expression (FIM): 5 Social Interaction(FIM): 5 Problem Solving(FIM): 4 Memory(FIM): 4 Additional Goals: 1-Demonstrate ADL Tasks, 2-Verbalize Understanding, 3- ImproveStrength/Amanda 1=Demonstrate adherence to instructed precautions during ADL tasks. 2=Patient will verbalize/demonstrate understanding of assistive devices/ modifications for ADL. 3=Patient will improve strength/tolerance for activity to enable patient to perform ADL's. OT Education/Plan Discharge Recommendations Plan/Recommendations: Continue POC Treatment Plan/Plan of Care Patient would benefit from OT for education, treatment and training to promote independence in ADL's, mobility, safety and/or upper extremity function for ADL' s. Plan of Care: ADL Retraining, Functional Mobility, Group Exercise/Act as Ind, UE Funct Exercise/Act Treatment Duration: Dec 05, 2017 Frequency: At least 5 of 7 days/Wk (IRF) Estimated Hrs Per Day: 1.5 hours per day Agreement: Yes Rehab Potential: Fair Time/GCodes Start Time: 10:00 Stop Time: 11:00 Total Time Billed (hr/min): 60 Billed Treatment Time visit, 60 minutes exercise MAGDALENA OSBORN OT Nov 18, 2017 12:50
--- NOTE | 2017-11-18 14:24 | Occupational Ther Daily Note ---
OT Current Status-Daily Note Subjective Pt seen in room, up in recliner, agreeable to OT. No pain mentioned. Appearance Alert, cooperative but said he was tired. Mental Status/Objective Functional [place] Measure 0=Not Assessed/NA 4=Minimal Assistance 1=Total Assistance 5=Supervision or Setup 2=Maximal Assistance 6=Modified [place] 3=Moderate Assistance 7=Complete [place] ADL-Treatment Functional [place] Measure 0=Not Assessed/NA 4=Minimal Assistance 1=Total Assistance 5=Supervision or Setup 2=Maximal Assistance 6=Modified [place] 3=Moderate Assistance 7=Complete IndependenceIRFPAI Quality Coding Scale 6 Independent with activity with or without an assistive device 5 Patient requires set up or clean up by helper. Patient completes activity by themselves 4 Supervision or touching assist (CGA). [place] provide cues , steadying assist 3 The helper provides less than half the effort to complete the activity 2 The helper provides more than half the effort to complete the activity 1 Dependent. The helper does all the effort to complete an activity 7 Patient refused to complete or attempt activity 9 The patient did not perform the activity before the current illness or injury 88 Not attempted due to Medical conditions or safety concerns Other Treatment Pt worked with bob thernidhid (low resistance), doing bilat UE exercises. He did 10 horizontal stretches and required a recovery period for short of breath ( he did pursed lip breathing). Dropped back to 5 reps of elbow extension each side times two sets (totalling 10 reps) and he still required significant recovery periods after each set of 5 reps. Pt educ on energy conservation and being sure to recover before starting next group of exercises or activities. Pt left up in recliner, all needs met. Education OT Patient Education: Energy conservation, Purpose of tx/functional activities Teaching Recipient: Patient Teaching Methods: Demonstration Response to Teaching: Return Demonstration, Reinforcement Needed OT Short Term Goals Short Term Goals Time Frame: Nov 21, 2017 Eating(FIM): 5 Grooming(FIM): 5 Bathing(FIM): 5 Upper Body Dressing(FIM): 5 Lower Body Dressing(FIM): 5 Toileting(FIM): 5 Transfers (B,C,W/C) (FIM): 5 Toilet/Commode Transfer(FIM): 5 Shower Transfer(FIM): 5 Additional Short Term Goals: 1-Demonstrate ADL Tasks, 2-Verbalize Understanding , 3-ImproveStrength/Amanda 1=Demonstrate adherence to instructed precautions during ADL tasks. 2=Patient will verbalize/demonstrate understanding of assistive devices/ modifications for ADL. 3=Patient will improve strength/tolerance for activity to enable patient to perform ADL's. OT Assisted Goals Retail Supervisor Goals Time Frame: Dec 05, 2017 Eating (FIM): 6 Eating (QC): 6 Groomin Oral Hygiene (QC): 6 Bathing(FIM): 5 Shower/Bathe Self (QC): 5 Upper Body Dressing(FIM): 6 Upper Body Dressing (QC): 6 Lower Body Dressing(FIM): 6 Lower Body Dressing (QC): 6 On/Off Footwear (QC): 6 Toileting(FIM): 6 Toileting Hygiene (QC): 6 Transfers (B,C,W/C) (FIM): 6 Toilet/Commode Transfer(FIM): 6 Toilet/Commode Transfer (QC): 6 Shower Transfer(FIM): 5 Comprehension(FIM): 5 Expression (FIM): 5 Social Interaction(FIM): 5 Problem Solving(FIM): 4 Memory(FIM): 4 Additional Goals: 1-Demonstrate ADL Tasks, 2-Verbalize Understanding, 3- ImproveStrength/Amanda 1=Demonstrate adherence to instructed precautions during ADL tasks. 2=Patient will verbalize/demonstrate understanding of assistive devices/ modifications for ADL. 3=Patient will improve strength/tolerance for activity to enable patient to perform ADL's. OT Education/Plan Discharge Recommendations Plan/Recommendations: Continue POC Treatment Plan/Plan of Care Patient would benefit from OT for education, treatment and training to promote independence in ADL's, mobility, safety and/or upper extremity function for ADL' s. Plan of Care: ADL Retraining, Functional Mobility, Group Exercise/Act as Ind, UE Funct Exercise/Act Treatment Duration: Dec 05, 2017 Frequency: At least 5 of 7 days/Wk (IRF) Estimated Hrs Per Day: 1.5 hours per day Agreement: Yes Rehab Potential: Fair Time/GCodes Start Time: 13:30 Stop Time: 13:45 Total Time Billed (hr/min): 15 Billed Treatment Time visit, 15 minutes exercise MAGDALENA OSBORN OT Nov 18, 2017 14:24
[2017-11-18] MEDS: inSUlin Protamine/ASPart 70/30 1 UNIT/0.01 ML DOSE SC SCH ×2 (15:08→21:30)
--- NOTE | 2017-11-18 16:45 | Physical Therapy Daily Note ---
PT Daily Note-Current Subjective Pt sitting in recliner upon arrival. Pt agrees to PT. Pain Location: No Pain Reported Mental Status Patient Orientation: Person, Confused, Place Transfers Functional [place] Measure 0=Not Assessed/NA 4=Minimal Assistance 1=Total Assistance 5=Supervision or Setup 2=Maximal Assistance 6=Modified [place] 3=Moderate Assistance 7=Complete IndependenceIRFPAI Quality Coding Scale 6 Independent with activity with or without an assistive device 5 Patient requires set up or clean up by helper. Patient completes activity by themselves 4 Supervision or touching assist ([facility]). [place] provide cues , steadying assist 3 The helper provides less than half the effort to complete the activity 2 The helper provides more than half the effort to complete the activity 1 Dependent. The helper does all the effort to complete an activity 7 Patient refused to complete or attempt activity 9 The patient did not perform the activity before the current illness or injury 88 Not attempted due to Medical conditions or safety concerns Scootin Sit to/from Stand: 4 Sit to Stand (QC): 4 Weight Bearing Right Lower Extremity: Right Full Weight Bearing Left Lower Extremity: Left Full Weight Bearing Gait Training Does the Patient Walk?: Yes Distance (FIM): 3=150 ft Distance: 150' Walk 10 feet (QC): 4 Walk 50 ft with 2 Turns(QC): 4 Walk 150 ft (QC): 4 Gait Level of Assist: 4 Gait Persons Needed: 1 Gait Assistive Device: FWW Pt has a very slow xochitl, steady with no LOB. Exercises NuStep Minutes: 10 NuStep Workload: 3 Treatments Pt transfers from recliner to standing using FWW at [facility] for safety. Pt ambulates in hallway using FWW at [facility]. Pt uses NuStep for 10m at Workload 3 with a couple of short rest breaks during use. Pt returns to room to rest in recliner at end of tx with all needs met. Assessment Current Status: Good Progress Pt is confused at times and needs redirection. Pt fatigues easy and get SOA during tx. PT Short Term Goals Short Term Goals Time Frame: Nov 21, 2017 Transfers (B,C,W/C) (FIM): 5 Gait (FIM): 5 Distance (FIM): 3=150 ft Gait Distance Comment: 300 feet Gait Level of Assist: 5 Gait Assistive Device: FWW Stairs (FIM): 2 # of Steps: 4 Stairs Level of Assist: 4 PT Building Surveyor Goals Building Surveyor Goals PT Skilled Nursing Goals Time Frame: Dec 05, 2017 Transfers (B,C,W/C) (FIM): 6 Sit to Lying (QC): 6 Lying-Sitting on Side/Bed(QC): 6 Sit to Stand (QC): 6 Rollin Roll Left to Right (QC): 6 Chair/Yep-nr-Porbk Xfer(QC): 6 Car Transfer (QC): 4 Does the Patient Walk: Yes Gait (FIM): 6 Gait distance (FIM): 3=150 ft Distance: 300 feet Walk 10 feet (QC): 6 Walk 10ft-Uneven Surface(QC): 6 Walk 50ft with 2 Turns (QC): 6 Walk 150 ft (QC): 6 Gait Level of Assist: 6 Gait Assistive Device: FWW Stairs (FIM): 2 # of Steps: 4 1 Step (curb) (QC): 4 4 Steps (QC): 4 12 Steps (QC): 88 Stairs Level Of Assist: 5 Picking up an Object (QC): 5 PT Plan Problem List Problem List: Activity Tolerance, Functional Strength, Safety, Balance, Gait, Transfer Treatment/Plan Treatment Plan: Continue Plan of Care Treatment Plan: Bed Mobility, Education, Functional Activity Amanda, Functional Strength, Group Therapy, Gait, Safety, Therapeutic Exercise, Transfers Treatment Duration: Dec 05, 2017 Frequency: At least 5 of 7 days/Wk (IRF) Estimated Hrs Per Day: 1.5 hours per day Patient and/or Family Agrees t: Yes Safety Risks/Education Patient Education: Gait Training, Transfer Techniques, Correct Positioning, Safety Issues Teaching Recipient: Patient Teaching Methods: Discussion Response to Teaching: Verbalize Understanding Time/GCodes Time In: 1300 Time Out: 1330 Total Billed Treatment Time: 30 Total Billed Treatment 1, GT (15m) & EX (15m) TYRONE OLMOS CUSTODIAL AIDE Nov 18, 2017 16:45
[2017-11-18] MEDS: warFARin 5 MG (COUMADIN) TAB PO SCH (17:59)
[2017-11-18 18:15] VITALS: BP 164/88
[2017-11-19 04:46] VITALS: BP 170/88
[2017-11-19] MEDS: FUROSEMIDE 40 MG (LASIX) TAB PO SCH ×2 (06:21→15:02)
[2017-11-19] MEDS: OMEGA 3 (FISH OIL) 1000 MG CAP PO SCH (06:21)
[2017-11-19] MEDS: DOXYCYCLINE 100 MG (VIBRAMYCIN) TABLET PO SCH (06:21)
[2017-11-19] MEDS: KCL 20 MEQ TAB (K-DUR) PO SCH ×2 (06:22→15:52)
[2017-11-19 06:50] LABS: INR 5.2 (0.8-1.4); PROTHROMBIN TIME PATIENT 47.4 SEC (12.2-14.7)
[2017-11-19] MEDS: warFARin 7.5 MG (COUMADIN) TAB PO SCH (06:58)
[2017-11-19] MEDS ORDERED: PHARMACY TO DOSE IM SCH (08:00)
--- NOTE | 2017-11-19 08:04 | PM & R (SOAP) Progress Note ---
Subjective Time Seen by Provider: 07:45 Subjective/Events-last exam Patient was seen in his room this AM Discussed case with RN INR>5 Coumadin on hold see orders Patient min assist for transfers Objective Exam Last Set of Vital Signs Vital Signs Date Time Temp Pulse Resp B/P (MAP) Pulse Ox O2 Delivery O2 Flow Rate FiO2 11/19/17 04:46 97.6 83 22 170/88 (115) 99 NIV CPAP 11/17/17 12:07 4.50 Capillary Refill : I&O Intake and Output 11/19/17 00:00 Intake Total 1420 ml Output Total 1650 ml Balance -230 ml Intake Oral 1420 ml Output Urine Total 1650 ml # Voids 20 # Urine Diapers 3 General: Alert, Oriented X3, No Acute Distress HEENT: Atraumatic, PERRLA, EOMI, Mucous Memb Moist/[place] Neck: Supple, No JVD Lungs: Clear to Auscultation Heart: Regular Rate Abdomen: Normal Bowel Sounds, Soft, No Tenderness Extremities: Other (trace edeam) Skin: Other (Diabetic ulcer left heel and rt fourth toe) Neuro: Other (Generalized weakness with impaired sensation in feet) Results Lab Laboratory Tests 11/16/17 16:00: Glucometer 167H 11/17/17 04:34: Glucometer 124H 11/17/17 16:46: Glucometer 158H 11/17/17 21:19: Glucometer 169H 11/18/17 06:14: Glucometer 89 11/18/17 15:43: Glucometer 200H 11/18/17 20:46: Glucometer 178H 11/19/17 05:33: Glucometer 93 11/19/17 06:16: Prothrombin Time 47.4*H, INR Comment 5.2*H Assessment/Plan Assessment 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
--- NOTE | 2017-11-19 08:17 | Speech Therapy Daily Note ---
Speech Daily Progress Note Subjective Date Seen by Provider: Nov 19, 2017 Time Seen by Provider: 08:02 The patient was seated in his recliner upon entrance. The patient stated, "you can come shut this phone off" while referring to his seat alarm. The clinician reviewed the use and necessity of the device, as the patient stated, "well I just keep trying to go to the bathroom but this thing keeps going off." For a second time, the clinician reminded the patient of the necessity to use his call light when he would like to move around his room or use the restroom. The patient stated, "oh I know," however, does not demonstrate this behavior. The patient was agreeable to participation in the cognitive treatment program. Objective Functional Recall/Safety: The patient was unable to state the use of the chair alarm or the necessity of calling for help when he wishes to use the restroom. In addition, the patient demonstrated impulsivity with transfers, as the clinician aided the patient to the bathroom, however, the patient did not recall use of his walker. At times, the patient appears to be in denial of his memory difficulties, as after he is reminded, he stated, "oh I know, I know that." Sequencing of ADL's: The patient was provided cards which demonstrated sequencing of ADL tasks (brushing teeth, shaving, getting dressed). The patient was unable to view the cards due to his macular degeneration, therefore, the clinician provided verbal sequencing tasks, such as, transfers, bathroom use, etc. The patient demonstrates fair accuracy with these tasks, however, did require moderate verbal prompting for safety cues. Assessment Assessment Current Status: Fair Progress Treatment Plan Continue Plan of Care Communication Comprehension: 4 Expression: 4 Social Cognition Social Interaction: 5 Problem Solvin Memory: 3 Speech Short Term Goals Short Term Goals Short Term Goals 1. The patient will recall two functional memory strategies for use at home with mild clinician prompting. 2. The patient will recall three items immediately and following a five minute delay. 3. The patient will display 80% accuracy with safety problem solving and sequencing of ADL tasks. Time Frame-STG: One Week Speech Care Home Goals Senior Care Assistant Goals 1. The patient will demonstrate improved cognitive linguistic skills for increased safety and function with ADL's in the least restrictive setting. Time Frame: Two Weeks Comprehension: 5 Expression: 5 Social Interaction: 5 Problem Solvin Memory: 4 Speech-Plan Treatment Plan Speech Therapy Treatment Plan: Continue Plan of Care Continue skilled speech pathology to target functional memory and safety problem solving. Treatment Duration: Nov 28, 2017 Frequency: Modified Program (IRF) (4 to 5 times per week.) Estimated Hrs Per Day: .5 hour per day Rehab Potential: Fair Safety Risks/Education Teaching Recipient: Patient Teaching Methods: Demonstration, Discussion Response to Teaching: Reinforcement Needed Education Topics Provided: Safety Problem Solving Time Speech Therapy Time In: 08:02 Speech Therapy Time Out: 08:32 Total Billed Time: 30 Billed Treatment Time 1, SOL WILSON Nov 19, 2017 08:17
[2017-11-19] MEDS: NEO/POLY/DEX (MAXITROL) OPHTH OINT 3.5 GM OP SCH (09:47)
[2017-11-19] MEDS: LOTEPREDNOL OP SCH ×3 (09:47→21:28)
[2017-11-19] MEDS: TROSPIUM 20 MG (SANCTURA) TAB PO SCH (09:47)
[2017-11-19] MEDS: DIGOXIN 0.125 MG (LANOXIN) TAB PO SCH (09:48)
[2017-11-19] MEDS: LINEZOLID (ZYVOX) 600 MG TAB PO SCH (09:48)
[2017-11-19] MEDS: FERROUS SULF 325 MG (IRON) TAB PO SCH ×2 (09:48→21:28)
[2017-11-19] MEDS: FAMOTIDINE 20 MG (PEPCID) TABLET PO SCH (09:48)
[2017-11-19] MEDS: CARVEDILOL 12.5 MG (COREG) TABLET PO SCH ×2 (09:49→21:28)
[2017-11-19] MEDS: LOSARTAN 25 MG (COZAAR) TAB PO SCH (09:49)
[2017-11-19] MEDS: ASPIRIN E.C. 81 MG (ECOTRIN) TAB PO SCH (09:49)
[2017-11-19] MEDS: CLOPIDOGREL 75 MG (PLAVIX) TABLET PO SCH (09:49)
[2017-11-19] MEDS: CEFDINIR 300 MG (OMNICEF) CAP PO SCH (09:49)
[2017-11-19] MEDS: ONDANSETRON 4 MG (ZOFRAN) ORAL DISSOLVE TAB PO SCH ×2 (09:49→21:28)
--- NOTE | 2017-11-19 09:59 | Occupational Ther Daily Note ---
OT Current Status-Daily Note Subjective Pt seen in room, up in recliner, agreeable to OT. No pain mentioned. Appearance Alert, cooperative Mental Status/Objective Functional [place] Measure 0=Not Assessed/NA 4=Minimal Assistance 1=Total Assistance 5=Supervision or Setup 2=Maximal Assistance 6=Modified [place] 3=Moderate Assistance 7=Complete [place] ADL-Treatment Pt agreeable to OT. Struggled a little to find complete set of clothing in bag - looking for "Underwear substitute" which was on the counter. Pt educ on multiple occasions to sit to do ADLs to conserve energy and decrease risk of falling- take socks off, sit to wash lower legs, etc. Pt verbalized understanding. Pt educ in walker placement when preparing to sit - he tends to push it out of the way. Pt required several recovery breaks throughout ADLs and cues at times to take breaks. Functional [place] Measure 0=Not Assessed/NA 4=Minimal Assistance 1=Total Assistance 5=Supervision or Setup 2=Maximal Assistance 6=Modified [place] 3=Moderate Assistance 7=Complete IndependenceIRFPAI Quality Coding Scale 6 Independent with activity with or without an assistive device 5 Patient requires set up or clean up by helper. Patient completes activity by themselves 4 Supervision or touching assist ([facility]). [place] provide cues , steadying assist 3 The helper provides less than half the effort to complete the activity 2 The helper provides more than half the effort to complete the activity 1 Dependent. The helper does all the effort to complete an activity 7 Patient refused to complete or attempt activity 9 The patient did not perform the activity before the current illness or injury 88 Not attempted due to Medical conditions or safety concerns Bathing (FIM): 5 (SBA to wash clay and bottom. Pt washed and dried all parts except back. Shower bench, grab bars, hand held shower.) Upper Body (FIM): 4 (Able to take shirt off but needed just a little help to pull shirt down due to neuropathy in hands) Lower Body Dressing (FIM): 5 (SBA when standing to pull pants up and down, FWW or grab bar. Pt educ to sit to take socks off, not try to step out of them. Pt able to get pants on over feet - pt educ modified technique. Socks not put back on due to nursing redressing feet. Pt needed to take recovery breaks throughout. ) Toilet/Commode Transfer (FIM): 5 (On/off BSC over toilet, using arms and grab bars. SBA) Shower Transfer(FIM): 5 (SBA, getting in and out of shower, using shower bench , grab bars, FWW) Education OT Patient Education: Energy conservation, Modified ADL techniques, Purpose of tx/functional activities, Safety issues, Transfer techniques Teaching Recipient: Patient Teaching Methods: Demonstration, Discussion Response to Teaching: Verbalize Understanding, Return Demonstration, Reinforcement Needed OT Short Term Goals Short Term Goals Time Frame: Nov 21, 2017 Eating(FIM): 5 Grooming(FIM): 5 Bathing(FIM): 5 Upper Body Dressing(FIM): 5 Lower Body Dressing(FIM): 5 Toileting(FIM): 5 Transfers (B,C,W/C) (FIM): 5 Toilet/Commode Transfer(FIM): 5 Shower Transfer(FIM): 5 Additional Short Term Goals: 1-Demonstrate ADL Tasks, 2-Verbalize Understanding , 3-ImproveStrength/Amanda 1=Demonstrate adherence to instructed precautions during ADL tasks. 2=Patient will verbalize/demonstrate understanding of assistive devices/ modifications for ADL. 3=Patient will improve strength/tolerance for activity to enable patient to perform ADL's. OT Cupola Tapper Helper Goals Shelter Goals Time Frame: Dec 05, 2017 Eating (FIM): 6 Eating (QC): 6 Groomin Oral Hygiene (QC): 6 Bathing(FIM): 5 Shower/Bathe Self (QC): 5 Upper Body Dressing(FIM): 6 Upper Body Dressing (QC): 6 Lower Body Dressing(FIM): 6 Lower Body Dressing (QC): 6 On/Off Footwear (QC): 6 Toileting(FIM): 6 Toileting Hygiene (QC): 6 Transfers (B,C,W/C) (FIM): 6 Toilet/Commode Transfer(FIM): 6 Toilet/Commode Transfer (QC): 6 Shower Transfer(FIM): 5 Comprehension(FIM): 5 Expression (FIM): 5 Social Interaction(FIM): 5 Problem Solving(FIM): 4 Memory(FIM): 4 Additional Goals: 1-Demonstrate ADL Tasks, 2-Verbalize Understanding, 3- ImproveStrength/Amanda 1=Demonstrate adherence to instructed precautions during ADL tasks. 2=Patient will verbalize/demonstrate understanding of assistive devices/ modifications for ADL. 3=Patient will improve strength/tolerance for activity to enable patient to perform ADL's. OT Education/Plan Discharge Recommendations Plan/Recommendations: Continue POC Treatment Plan/Plan of Care Patient would benefit from OT for education, treatment and training to promote independence in ADL's, mobility, safety and/or upper extremity function for ADL' s. Plan of Care: ADL Retraining, Functional Mobility, Group Exercise/Act as Ind, UE Funct Exercise/Act Treatment Duration: Dec 05, 2017 Frequency: At least 5 of 7 days/Wk (IRF) Estimated Hrs Per Day: 1.5 hours per day Agreement: Yes Rehab Potential: Fair Time/GCodes Start Time: 09:00 Stop Time: 09:54 Total Time Billed (hr/min): 54 Billed Treatment Time visit, 54 minutes ADL MAGDALENA OSBORN OT Nov 19, 2017 09:59
--- NOTE | 2017-11-19 11:44 | Physical Therapy Daily Note ---
PT Daily Note-Current Subjective Pt sitting in recliner upon arrival. Pt agrees to PT. Mental Status Patient Orientation: Person, Confused, Place Transfers Functional [place] Measure 0=Not Assessed/NA 4=Minimal Assistance 1=Total Assistance 5=Supervision or Setup 2=Maximal Assistance 6=Modified [place] 3=Moderate Assistance 7=Complete IndependenceIRFPAI Quality Coding Scale 6 Independent with activity with or without an assistive device 5 Patient requires set up or clean up by helper. Patient completes activity by themselves 4 Supervision or touching assist ([facility]). [place] provide cues , steadying assist 3 The helper provides less than half the effort to complete the activity 2 The helper provides more than half the effort to complete the activity 1 Dependent. The helper does all the effort to complete an activity 7 Patient refused to complete or attempt activity 9 The patient did not perform the activity before the current illness or injury 88 Not attempted due to Medical conditions or safety concerns Sc[place]in Sit to/from Stand: 4 Sit to Stand (QC): 4 Weight Bearing Right Lower Extremity: Right Full Weight Bearing Left Lower Extremity: Left Full Weight Bearing Gait Training Does the Patient Walk?: Yes Distance (FIM): 3=150 ft Distance: 175' Walk 10 feet (QC): 4 Walk 50 ft with 2 Turns(QC): 4 Walk 150 ft (QC): 4 Gait Level of Assist: 4 Gait Persons Needed: 1 Gait Assistive Device: FWW Pt has very slow xochitl and gets SOA easily. Pt needs recovery after short ambulations or exercise. Wheelchair Training Does the Pt Use a Wheelchair?: No Exercises Seated Therapy Exercises: Ankle pumps, Long arc quads, Hip flexion, Kicking activity Seated Reps: 15 NuStep Minutes: 10 NuStep Workload: 3 Treatments Pt transfers from recliner to standing using FWW at [facility]. Pt ambulates in hallway using FWW at [facility] for safety. Pt uses NuStep for 10m at Workload 3 followed by short rest then Seated Ex before returning back to room to rest. Pt transfers back to recliner to rest with all needs met at end of tx. Assessment Current Status: Fair Progress Pt remains confused and has difficulty with SOA. Pt fatigues easy. PT Short Term Goals Short Term Goals Time Frame: Nov 21, 2017 Transfers (B,C,W/C) (FIM): 5 Gait (FIM): 5 Distance (FIM): 3=150 ft Gait Distance Comment: 300 feet Gait Level of Assist: 5 Gait Assistive Device: FWW Stairs (FIM): 2 # of Steps: 4 Stairs Level of Assist: 4 PT Detention Goals Pen Ruler Operator Goals PT Pen Ruler Operator Goals Time Frame: Dec 05, 2017 Transfers (B,C,W/C) (FIM): 6 Sit to Lying (QC): 6 Lying-Sitting on Side/Bed(QC): 6 Sit to Stand (QC): 6 Rollin Roll Left to Right (QC): 6 Chair/Wuf-hi-Okjpx Xfer(QC): 6 Car Transfer (QC): 4 Does the Patient Walk: Yes Gait (FIM): 6 Gait distance (FIM): 3=150 ft Distance: 300 feet Walk 10 feet (QC): 6 Walk 10ft-Uneven Surface(QC): 6 Walk 50ft with 2 Turns (QC): 6 Walk 150 ft (QC): 6 Gait Level of Assist: 6 Gait Assistive Device: FWW Stairs (FIM): 2 # of Steps: 4 1 Step (curb) (QC): 4 4 Steps (QC): 4 12 Steps (QC): 88 Stairs Level Of Assist: 5 Picking up an Object (QC): 5 PT Plan Problem List Problem List: Activity Tolerance, Functional Strength, Safety, Balance, Gait, Transfer Treatment/Plan Treatment Plan: Continue Plan of Care Treatment Plan: Bed Mobility, Education, Functional Activity Amanda, Functional Strength, Group Therapy, Gait, Safety, Therapeutic Exercise, Transfers Treatment Duration: Dec 05, 2017 Frequency: At least 5 of 7 days/Wk (IRF) Estimated Hrs Per Day: 1.5 hours per day Patient and/or Family Agrees t: Yes Safety Risks/Education Patient Education: Gait Training, Transfer Techniques, Correct Positioning, Safety Issues Teaching Recipient: Patient Teaching Methods: Discussion Response to Teaching: Verbalize Understanding Time/GCodes Time In: 1000 Time Out: 1045 Total Billed Treatment Time: 45 Total Billed Treatment 1, GT (15m) & EX x2 (30m) TYRONE OLMOS COLORIST DYER Nov 19, 2017 11:44
--- NOTE | 2017-11-19 14:44 | Therapy Group Daily Note ---
Therapy Daily Group Note Patient Education Topic Home Safety, Fall Prevention Other/Notes Pt was an active participant in OT/PT group. He contributed to discussion/ patient education on home safety and fall prevention, with emphasis on discussion regarding walker placement and safety. He was able to tolerate participating during the entire group, without additional oxygen. He walked back to his room with CGA, FWW and was left up in recliner, chair alarm on, all needs met. Start Time: 13:00 Stop Time: 14:20 Total Billed Treatment Time: 80 Total Billed Treatment visit, 80 minutes group MAGDALENA OSBORN OT Nov 19, 2017 14:44
[2017-11-19] MEDS: inSUlin Protamine/ASPart 70/30 1 UNIT/0.01 ML DOSE SC SCH ×2 (15:02→21:28)
[2017-11-19] MEDS: CALCIUM CARBONATE 500 MG (TUMS) TAB.CHEW PO PRN (15:52)
[2017-11-19 18:57] VITALS: BP 167/72
[2017-11-19] MEDS: MUPIROCIN 2% OINT 22 GM (BACTROBAN) TUBE TOP SCH (21:30)
--- NOTE | 2017-11-19 22:30 | Consultation ---
History of Present Illness History of Present Illness Patient Consulted On(maria t/time) 11/19/17 22:23 Date Seen by Provider: Nov 18, 2017 Time Seen by Provider: 08:00 Reason for Visit: Consultation medical management History of Present Illness 82 yo M admitted to inpatient rehab for physical decline due to recent medical illnesses including a diabetic ulcer and ESBL UTI. He will benefit from rehabilitation with the goal of returning home. Leading up to this admission patient had gotten up the previous 2 nights at home and fell. He was confused and unable to get himself back up. Pt reports he is feeling better- glad that they are working him hard in therapy. He feels stronger compared to when he was first admitted. Eating well. Denies any bleeding/vomiting. INR noted to be elevated. Warfarin is held. Allergies and Home Medications Allergies Coded Allergies: sulfamethoxazole (Verified Allergy, Mild, RASH, 11/13/17) trimethoprim (Verified Allergy, Mild, RASH, 11/13/17) Home Medications Aspirin 81 Mg Tablet.dr, 81 MG PO 1400, (Reported) Carvedilol 12.5 Mg Tablet, 18.75 MG PO BID, (Reported) TAKES 1 & 1/2 (12.5MG) TABLETS Cefdinir 300 Mg Capsule, 300 MG PO BID, (Reported) #20 CAPSULES FILLED 2-8-18 Clopidogrel Bisulfate 75 Mg Tablet, 75 MG PO DAILY, (Reported) Digoxin 125 Mcg Tablet, 125 MCG PO DAILY, (Reported) Doxycycline Monohydrate 100 Mg Capsule, 100 MG PO BID for 14 Days, (Reported) FILLED #8 CAPSULES 2-7-18 AND FILLED #28 DOXYCYCLINE HYCLATE 2-2-18 SEE PATIENT NOTES FOR DETAILS Famotidine 20 Mg Tablet, 20 MG PO BID, (Reported) Ferrous Sulfate 325 Mg Tablet, 325 MG PO BID, (Reported) ON HOLD WHILE PATIENT IS ON ANTIBIOTIC Furosemide 20 Mg Tablet, 40 MG PO 0800,1400, (Reported) TAKES 2 (20 MG) TABLETS Hydrocodone Bit/Acetaminophen 1 Each Tablet, 1 TAB PO Q8H PRN for PAIN-MODERATE, (Reported) Insuln Asp Prt/Insulin Aspart 300 Units/3 Ml Solution, 28 UNITS SQ 1400, ( Reported) Insuln Asp Prt/Insulin Aspart 300 Units/3 Ml Solution, 32 UNITS SC HS, (Reported ) BETWEEN 10-11PM Krill Oil 500 Mg Capsule, 500 MG PO DAILY, (Reported) Linezolid 600 Mg Tablet, 600 MG PO BID, (Reported) #20 TABLETS FILLED 11-07-17 Losartan Potassium 25 Mg Tablet, 25 MG PO DAILY, (Reported) Loteprednol Etabonate 5 Gm Drops.gel, 1 DROP OP TID, (Reported) 14 DAY SUPPLY FILLED 11-04-17 León/Polymyx B Sulf/Dexameth 3.5 Gm Oint...g., OP UD, (Reported) APPLY 1/4 INCH RIBBON TWICE DAILY X 14 DAYS FILLED 11-04-17 Ondansetron HCl 4 Mg Tab, 4 MG PO BID, (Reported) TAKE BEFORE TAKING DOXYCYCLINE (#10 TABS FILLED 11-12-17) Potassium Chloride 20 Meq Tab.er.prt, 40 MEQ PO BID, (Reported) TAKES 2 (20MEQ) TABLETS Trospium Chloride 60 Mg Cap.er.24h, 60 MG PO DAILY, (Reported) Warfarin Sodium 5 Mg Tablet, 7.5 MG PO SuMoWeFr, (Reported) TAKES 1 & 1/2 (5MG) TABLETS Warfarin Sodium 5 Mg Tablet, 5 MG PO TuThSa, (Reported) [nattokinase] , 2,000 PO DAILY, (Reported) Past Hpuxwrp-Ajappx-Gzvdzs Hx Patient Social History Alcohol Use: Denies Use Recreational Drug Use: No Smoking Status: Former Smoker Type Used: Cigarettes Former Smoker, Quit: Aug 20, 2005 2nd Hand Smoke Exposure: No Recent Foreign Travel: No Recent Hopitalizations: Yes (SEP 2016 PER ) Immunizations Up To Date Tetanus Booster (TDap): Less than 5yrs PED Vaccines UTD: No Date of Pneumonia Vaccine: Aug 28, 2016 Date of Influenza Vaccine: Jul 16, 2017 Seasonal Allergies Seasonal Allergies: No Surgeries History of Surgeries: Yes (CATARACTS, CARPAL TUNNEL, BILAT.THUMBS) Surgeries: Eye Surgery, Orthopedic, Prostatectomy, Tonsillectomy, Vascular Surgery Respiratory History of Respiratory Disorde: Yes (CPAP AT HS; ACUTE ON CHRONIC RESPIRATORY FAILURE) Respiratory Disorders: Pneumonia, Sleep Apnea, COPD Currently Using CPAP: Yes Currently Using BIPAP: No Cardiovascular History of Cardiac Disorders: Yes Cardiac Disorders: Atrial Fibrillation, High Cholesterol, Hypertension Neurological History of Neurological Disord: Yes (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) Neurological Disorders: Neuropathy Reproductive System Hx Reproductive Disorders: No Sexually Transmitted Disease: No HIV/AIDS: No Genitourinary History of Genitourinary Disor: Yes (CHRONIC ADLER/TURP) Genitourinary Disorders: Benign Prostatic Hyperpl, Renal Failure, UTI-Chronic Gastrointestinal History of Gastrointestinal Di: No Gastrointestinal Disorders: Gastroesophageal Reflux, Chronic Constipation Musculoskeletal History of Musculoskeletal Dis: Yes (GENERALIZED WEAKNESS ) Endocrine History of Endocrine Disorders: Yes Endocrine Disorders: Diabetes, Insulin dep HEENT History of HEENT Disorders: Yes HEENT Disorders: Cataract, Macular Degeneration Hearing Impairment: Hard of Hearing Cancer History of Cancer: Yes (BASAL CELL CARCINOMA) Cancer: Skin Did You Recieve Any Treatments: No Psychosocial History of Psychiatric Problem: Yes Behavioral Health Disorders: Sleep Difficulties Integumentary History of Skin or Integumenta: Yes (CELLULITIS IN LEFT KNEE EARLY OCTOBER 2013) Skin/Integumentary Disorders: Recent Skin Changes Blood Transfusions History of Blood Disorders: No Adverse Reaction to a Blood Tr: No Family Medical History Significant Family History: Cancer Family Medial History: COPD 19 FATHER Colon cancer 19 MOTHER Diabetes mellitus G8 SISTER Drug abuse G8 SISTER Lung cancer 19 FATHER Polio G8 BROTHER Sarcoidosis G8 BROTHER Review of Systems Review of Systems General: No Chills, No Night Sweats HEENT: No Head Aches, No Visual Changes Pulmonary: No Dyspnea, No Cough Cardiovascular: No: Chest Pain, Palpitations, Orthopnea Gastrointestinal: No: Nausea, Vomiting, Abdominal Pain Genitourinary: No Dysuria, No Frequency Musculoskeletal: No: neck pain, shoulder pain Neurological: Weakness, Numbness Physical Exam Vital Signs Vital Signs - First Documented 11/14/17 11/14/17 11/15/17 11:33 18:40 04:07 Temp 96.7 Pulse 75 Resp 22 B/P (MAP) 169/89 (115) Pulse Ox 99 O2 Delivery Room Air O2 Flow Rate 4.00 Capillary Refill : General Appearance: No Apparent Distress, WD/WN HEENT: PERRL/EOMI Neck: Full Range of Motion, Normal Inspection, Non Tender Respiratory: Chest Non Tender, Lungs Clear, Normal Breath Sounds, No Accessory Muscle Use, No Respiratory Distress Cardiovascular: Regular Rate, Rhythm Gastrointestinal: Normal Bowel Sounds, Non Tender, Soft Rectal: Deferred Back: No CVA Tenderness, No Vertebral Tenderness Extremity: No Calf Tenderness, Other (knees are painful) Neurologic/Psychiatric: Alert, Oriented x3 Skin: Warm/Dry Assessment/Plan Assessment/Plan Assessment/Plan R53.1 Weakness/deconditioning- inpatient rehab- doing well. 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 (G47.33) Obstructive sleep apnea - home cpap (N18.3) Chronic kidney disease, stage 3 (moderate) --monitor Cr. currently at baseline Cr- fluid hydration. chronic wound- bottom of foot- wound care consult- on cefdinir and linezolid per Dr. Farrell orders. (J44.9) Chronic obstructive pulmonary disease- continue oxygen prn (currently on room air) (I48.91) atrial fibrillation- holding warfarin as INR supratherapeutic. re- checking INR (I15.9) Secondary hypertension- continue current regimen. (K21.9) Gastro-esophageal reflux disease without esophagitis Chronic (F03.90) dementia without behavioral disturbance- monitor- worsened by infections- Dispo: Continue Inpatient rehab - pt is doing well- monitor progress- expect he will be able to return home and ultimately be safer and remain in his home longer. Problems: Clinical Quality Measures DVT/VTE Risk/Contraindication: Risk Factor Score Per Nursin RFS Level Per Nursing on Admit: 4+=Very High RUBEN SANCHEZ MD Nov 19, 2017 22:30
[2017-11-20 06:06] VITALS: BP 171/89
[2017-11-20] MEDS: FUROSEMIDE 40 MG (LASIX) TAB PO SCH ×2 (06:16→13:51)
[2017-11-20] MEDS: OMEGA 3 (FISH OIL) 1000 MG CAP PO SCH (06:16)
[2017-11-20] MEDS: KCL 20 MEQ TAB (K-DUR) PO SCH ×2 (06:17→17:40)
[2017-11-20 06:45] LABS: INR 4.8 (0.8-1.4); PROTHROMBIN TIME PATIENT 44.6 SEC (12.2-14.7)
[2017-11-20 06:58] LABS: CREATININE SERUM 1.53 MG/DL (0.60-1.30); POTASSIUM 3.7 MMOL/L (3.6-5.0)
[2017-11-20] MEDS: TROSPIUM 20 MG (SANCTURA) TAB PO SCH (09:09)
[2017-11-20] MEDS: FAMOTIDINE 20 MG (PEPCID) TABLET PO SCH (09:09)
[2017-11-20] MEDS: ONDANSETRON 4 MG (ZOFRAN) ORAL DISSOLVE TAB PO SCH ×2 (09:09→20:35)
[2017-11-20] MEDS: CLOPIDOGREL 75 MG (PLAVIX) TABLET PO SCH (09:09)
[2017-11-20] MEDS: FERROUS SULF 325 MG (IRON) TAB PO SCH ×2 (09:09→20:35)
[2017-11-20] MEDS: LOSARTAN 25 MG (COZAAR) TAB PO SCH (09:09)
[2017-11-20] MEDS: ASPIRIN E.C. 81 MG (ECOTRIN) TAB PO SCH (09:09)
[2017-11-20] MEDS: DIGOXIN 0.125 MG (LANOXIN) TAB PO SCH (09:09)
--- NOTE | 2017-11-20 09:28 | PM & R (SOAP) Progress Note ---
Subjective Time Seen by Provider: 08:15 Subjective/Events-last exam Patient was seen in his room this AM Patient Min assist for transfers appreciate DR Barber note and orders INR decreasing with coumadin on hold Review of Systems Neurological: Weakness, Confusion Objective Exam Last Set of Vital Signs Vital Signs Date Time Temp Pulse Resp B/P (MAP) Pulse Ox O2 Delivery O2 Flow Rate FiO2 11/20/17 06:06 97.4 89 20 171/89 (116) 97 NIV CPAP 11/17/17 12:07 4.50 Capillary Refill : I&O Intake and Output 11/20/17 00:00 Intake Total 1200 ml Balance 1200 ml Intake Oral 1200 ml # Voids 14 # Bowel Movements 1 General: Alert, Oriented X3, No Acute Distress HEENT: Atraumatic, PERRLA, EOMI, Mucous Memb Moist/[place] Neck: Supple, No JVD Lungs: Clear to Auscultation Heart: Regular Rate Abdomen: Normal Bowel Sounds, Soft, No Tenderness Extremities: Other (trace edeam) Skin: Other (Diabetic ulcer left heel and rt fourth toe) Neuro: Other (Generalized weakness with impaired sensation in feet) Results Lab Laboratory Tests 11/17/17 16:46: Glucometer 158H 11/17/17 21:19: Glucometer 169H 11/18/17 06:14: Glucometer 89 11/18/17 15:43: Glucometer 200H 11/18/17 20:46: Glucometer 178H 11/19/17 05:33: Glucometer 93 11/19/17 06:16: Prothrombin Time 47.4*H, INR Comment 5.2*H 11/19/17 17:12: Glucometer 190H 11/19/17 21:24: Glucometer 139H 11/20/17 04:32: Glucometer 66L 11/20/17 06:13: Prothrombin Time 44.6H, INR Comment 4.8H, Sodium Level 138, Potassium Level 3.7 , Chloride Level 106, Carbon Dioxide Level 22, Anion Gap 10, Blood Urea Nitrogen 30H, Creatinine 1.53H, Estimat Glomerular Filtration Rate 44, BUN/ Creatinine Ratio 20, Glucose Level 109H, Calcium Level 9.0 Assessment/Plan Assessment 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
[2017-11-20 09:45] VITALS: BP 157/81
[2017-11-20] MEDS: CARVEDILOL 12.5 MG (COREG) TABLET PO SCH ×2 (09:49→20:35)
[2017-11-20] MEDS: NEO/POLY/DEX (MAXITROL) OPHTH OINT 3.5 GM OP SCH (09:50)
[2017-11-20] MEDS: LOTEPREDNOL OP SCH ×3 (09:50→20:38)
[2017-11-20] MEDS: MUPIROCIN 2% OINT 22 GM (BACTROBAN) TUBE TOP SCH ×2 (09:50→20:36)
--- NOTE | 2017-11-20 09:58 | Occupational Ther Daily Note ---
OT Current Status-Daily Note Subjective Pt seen in room, up in recliner, agreeable to OT. No pain mentioned. Pt is aware of planned discharge on Friday. Appearance Alert, cooperative Mental Status/Objective Functional [place] Measure 0=Not Assessed/NA 4=Minimal Assistance 1=Total Assistance 5=Supervision or Setup 2=Maximal Assistance 6=Modified [place] 3=Moderate Assistance 7=Complete [place] ADL-Treatment OT discussed concern that he gets up without his walker and pt agreed but thought he was "doing better" about it. Pt educ when sitting back in recliner to square up walker and body before sitting, rather that swinging his bottom into recliner from the side. Pt became SOB when changing his brief on the toilet but managed to stand for at least 15 minutes, leaning on countertop, to shave without becoming SOB. kept walker safely in front of him and did not show LOB. All ADLs took longer than usual due to need for recovery periods. Functional [place] Measure 0=Not Assessed/NA 4=Minimal Assistance 1=Total Assistance 5=Supervision or Setup 2=Maximal Assistance 6=Modified [place] 3=Moderate Assistance 7=Complete IndependenceIRFPAI Quality Coding Scale 6 Independent with activity with or without an assistive device 5 Patient requires set up or clean up by helper. Patient completes activity by themselves 4 Supervision or touching assist (CGA). [place] provide cues , steadying assist 3 The helper provides less than half the effort to complete the activity 2 The helper provides more than half the effort to complete the activity 1 Dependent. The helper does all the effort to complete an activity 7 Patient refused to complete or attempt activity 9 The patient did not perform the activity before the current illness or injury 88 Not attempted due to Medical conditions or safety concerns Grooming (FIM): 5 (Stood at sink to shave (no nicks) and brush teeth and dentures, wash face and hands, comb hair. FWW. No LOB observed) Toileting (FIM): 5 (SBA/supervision for clothing management and hygiene. Pt likes to tear sides of Depends to take them off and said that he uses a scissors at home to do this. He was incontinent in Depends and attempted to put dry Depends on before taking sweat pants off - skilled cues to notice. Tall toilet, grab bar, FWW) Toilet/Commode Transfer (FIM): 55 (SBA getting on and off tall toilet, grab bar , FWW) Pt walked to and from bathroom with FWW with no observable LOB. Pt returned to recliner at end of tx, chair alarm on, all needs met. OT Short Term Goals Short Term Goals Time Frame: Nov 21, 2017 Eating(FIM): 5 Grooming(FIM): 5 Bathing(FIM): 5 Upper Body Dressing(FIM): 5 Lower Body Dressing(FIM): 5 Toileting(FIM): 5 Transfers (B,C,W/C) (FIM): 5 Toilet/Commode Transfer(FIM): 5 Shower Transfer(FIM): 5 Additional Short Term Goals: 1-Demonstrate ADL Tasks, 2-Verbalize Understanding , 3-ImproveStrength/Amanda 1=Demonstrate adherence to instructed precautions during ADL tasks. 2=Patient will verbalize/demonstrate understanding of assistive devices/ modifications for ADL. 3=Patient will improve strength/tolerance for activity to enable patient to perform ADL's. OT Painter Barrel Goals Painter Barrel Goals Time Frame: Dec 05, 2017 Eating (FIM): 6 Eating (QC): 6 Groomin Oral Hygiene (QC): 6 Bathing(FIM): 5 Shower/Bathe Self (QC): 5 Upper Body Dressing(FIM): 6 Upper Body Dressing (QC): 6 Lower Body Dressing(FIM): 6 Lower Body Dressing (QC): 6 On/Off Footwear (QC): 6 Toileting(FIM): 6 Toileting Hygiene (QC): 6 Transfers (B,C,W/C) (FIM): 6 Toilet/Commode Transfer(FIM): 6 Toilet/Commode Transfer (QC): 6 Shower Transfer(FIM): 5 Comprehension(FIM): 5 Expression (FIM): 5 Social Interaction(FIM): 5 Problem Solving(FIM): 4 Memory(FIM): 4 Additional Goals: 1-Demonstrate ADL Tasks, 2-Verbalize Understanding, 3- ImproveStrength/Amanda 1=Demonstrate adherence to instructed precautions during ADL tasks. 2=Patient will verbalize/demonstrate understanding of assistive devices/ modifications for ADL. 3=Patient will improve strength/tolerance for activity to enable patient to perform ADL's. OT Education/Plan Discharge Recommendations Plan/Recommendations: Continue POC Treatment Plan/Plan of Care Patient would benefit from OT for education, treatment and training to promote independence in ADL's, mobility, safety and/or upper extremity function for ADL' s. Plan of Care: ADL Retraining, Functional Mobility, Group Exercise/Act as Ind, UE Funct Exercise/Act Treatment Duration: Dec 05, 2017 Frequency: At least 5 of 7 days/Wk (IRF) Estimated Hrs Per Day: 1.5 hours per day Agreement: Yes Rehab Potential: Fair Time/GCodes Start Time: 09:00 Stop Time: 09:45 Total Time Billed (hr/min): 45 Billed Treatment Time visit, 45 minutes ADL MAGDALENA OSBORN OT Nov 20, 2017 09:58
--- NOTE | 2017-11-20 10:21 | Speech Therapy Daily Note ---
Speech Daily Progress Note Subjective Date Seen by Provider: Nov 20, 2017 Time Seen by Provider: 08:30 The patient was seated upright in recliner upon entrance. The patient greeted the clinician appropriately and was agreeable to participation in the cognitive treatment session. Objective - Telling Time on an Analog Clock: The patient was presented with an analog clock and asked to state the time the clock read. The patient demonstrated 100% accuracy with the task, independently. - Counting Money: The patient demonstrated great difficulty with counting change and bills, as well as, addition of coins and bills. A majority of the patient's difficulty appeared secondary to his poor visual ability. In addition , the patient's short term memory deficit was evident, as he would often forget the amount he had counting prior to completing the task. - Functional Recall: The patient was asked to recall his morning events, as well as, the prior evening. The patient demonstrated high accuracy, recalling the events and sequences of OT, as well as, his evening. Assessment Assessment Current Status: Fair Progress Treatment Plan Continue Plan of Care Communication Comprehension: 4 Expression: 4 Social Cognition Social Interaction: 5 Problem Solvin Memory: 3 Speech Short Term Goals Short Term Goals Short Term Goals 1. The patient will recall two functional memory strategies for use at home with mild clinician prompting. 2. The patient will recall three items immediately and following a five minute delay. 3. The patient will display 80% accuracy with safety problem solving and sequencing of ADL tasks. Time Frame-STG: One Week Speech Longterm Goals Avionics Test Technician Goals 1. The patient will demonstrate improved cognitive linguistic skills for increased safety and function with ADL's in the least restrictive setting. Time Frame: Two Weeks Comprehension: 5 Expression: 5 Social Interaction: 5 Problem Solvin Memory: 4 Speech-Plan Treatment Plan Speech Therapy Treatment Plan: Continue Plan of Care Continue skilled speech pathology to target functional memory and problem solving. Treatment Duration: Nov 28, 2017 Frequency: Modified Program (IRF) (4 to 5 times per week.) Estimated Hrs Per Day: .5 hour per day Rehab Potential: Fair Safety Risks/Education Teaching Recipient: Patient Teaching Methods: Discussion Response to Teaching: Verbalize Understanding Education Topics Provided: Functional Recall Strategies Time Speech Therapy Time In: 08:30 Speech Therapy Time Out: 08:50 Total Billed Time: 30 Billed Treatment Time 1, SLTS (8:30 to 8:50 and 10:00 to 10:10) SOL STALLWORTH Nov 20, 2017 10:21
--- NOTE | 2017-11-20 12:02 | Physical Therapy Daily Note ---
PT Daily Note-Current Subjective Agrees to Rx, feels he is doing better. Comments that he has 4 steps to negotiate at home. Pain Numeric Pain Scale: 0-No Pain Mental Status Patient Orientation: Normal For Age Transfers Functional [place] Measure 0=Not Assessed/NA 4=Minimal Assistance 1=Total Assistance 5=Supervision or Setup 2=Maximal Assistance 6=Modified [place] 3=Moderate Assistance 7=Complete IndependenceIRFPAI Quality Coding Scale 6 Independent with activity with or without an assistive device 5 Patient requires set up or clean up by helper. Patient completes activity by themselves 4 Supervision or touching assist (CGA). [place] provide cues , steadying assist 3 The helper provides less than half the effort to complete the activity 2 The helper provides more than half the effort to complete the activity 1 Dependent. The helper does all the effort to complete an activity 7 Patient refused to complete or attempt activity 9 The patient did not perform the activity before the current illness or injury 88 Not attempted due to Medical conditions or safety concerns Transfers (B, C, W/C) (FIM): 6 Scootin Rollin Supine to/from Sit: 6 Sit to/from Stand: 6 Bed to/from Chair: 6 Weight Bearing Right Lower Extremity: Right Full Weight Bearing Left Lower Extremity: Left Full Weight Bearing Gait Training Does the Patient Walk?: Yes Gait (FIM): 5 Distance (FIM): 3=150 ft (150x2) Gait Level of Assist: 5 Gait Persons Needed: 1 Gait Assistive Device: FWW low, fatigued at times, recovers with short rest Stair Training Stair Training: Handrails/: 2 handrails Stairs (FIM): 5 #of Steps: 4 Stairs: Pattern: Step to Level of Assist: 5 Exercises Seated Therapy Exercises: Ankle pumps, Sit to stand, Long arc quads, Hip flexion Seated Reps: 12 NuStep Minutes: 12 NuStep Workload: 3 Assessment Current Status: Good Progress PT Short Term Goals Short Term Goals Time Frame: Nov 21, 2017 Transfers (B,C,W/C) (FIM): 5 Gait (FIM): 5 Distance (FIM): 3=150 ft Gait Distance Comment: 300 feet Gait Level of Assist: 5 Gait Assistive Device: FWW Stairs (FIM): 2 # of Steps: 4 Stairs Level of Assist: 4 PT Safety Intern Goals Safety Intern Goals PT Safety Intern Goals Time Frame: Dec 05, 2017 Transfers (B,C,W/C) (FIM): 6 Sit to Lying (QC): 6 Lying-Sitting on Side/Bed(QC): 6 Sit to Stand (QC): 6 Rollin Roll Left to Right (QC): 6 Chair/Jqb-ow-Ieomu Xfer(QC): 6 Car Transfer (QC): 4 Does the Patient Walk: Yes Gait (FIM): 6 Gait distance (FIM): 3=150 ft Distance: 300 feet Walk 10 feet (QC): 6 Walk 10ft-Uneven Surface(QC): 6 Walk 50ft with 2 Turns (QC): 6 Walk 150 ft (QC): 6 Gait Level of Assist: 6 Gait Assistive Device: FWW Stairs (FIM): 2 # of Steps: 4 1 Step (curb) (QC): 4 4 Steps (QC): 4 12 Steps (QC): 88 Stairs Level Of Assist: 5 Picking up an Object (QC): 5 PT Plan Treatment/Plan Treatment Plan: Continue Plan of Care Treatment Plan: Bed Mobility, Education, Functional Activity Amanda, Functional Strength, Group Therapy, Gait, Safety, Therapeutic Exercise, Transfers Treatment Duration: Dec 05, 2017 Frequency: At least 5 of 7 days/Wk (IRF) Estimated Hrs Per Day: 1.5 hours per day Patient and/or Family Agrees t: Yes Safety Risks/Education Patient Education: Gait Training, Transfer Techniques, Steps Teaching Recipient: Patient Teaching Methods: Demonstration, Discussion Response to Teaching: Verbalize Understanding, Return Demonstration Time/GCodes Time In: 1100 Time Out: 1200 Total Billed Treatment Time: 60 Total Billed Treatment 1,EX20,FA15,GT25 G Codes Necessary: TREVER Martínez CLUB MANAGER Nov 20, 2017 12:01
[2017-11-20] MEDS: inSUlin Protamine/ASPart 70/30 1 UNIT/0.01 ML DOSE SC SCH ×2 (13:52→20:36)
--- NOTE | 2017-11-20 14:22 | Physical Therapy Daily Note ---
PT Daily Note-Current Subjective present. appears disgruntled but states she brought briefs for pt. as asked to do. Pt. states " I guess I have something in my skivvys" Pt. agrees to sitting LE exercises and sit to stands Transfers Functional [place] Measure 0=Not Assessed/NA 4=Minimal Assistance 1=Total Assistance 5=Supervision or Setup 2=Maximal Assistance 6=Modified [place] 3=Moderate Assistance 7=Complete IndependenceIRFPAI Quality Coding Scale 6 Independent with activity with or without an assistive device 5 Patient requires set up or clean up by helper. Patient completes activity by themselves 4 Supervision or touching assist (CGA). [place] provide cues , steadying assist 3 The helper provides less than half the effort to complete the activity 2 The helper provides more than half the effort to complete the activity 1 Dependent. The helper does all the effort to complete an activity 7 Patient refused to complete or attempt activity 9 The patient did not perform the activity before the current illness or injury 88 Not attempted due to Medical conditions or safety concerns sit to stand x 3 SBA to Mod I Weight Bearing Right Lower Extremity: Right Full Weight Bearing Left Lower Extremity: Left Full Weight Bearing Exercises Seated Therapy Exercises: Ankle pumps, Sit to stand, Long arc quads, Hip flexion, Hip abd/add Seated Reps: 12 Assessment Current Status: Good Progress PT Short Term Goals Short Term Goals Time Frame: Nov 21, 2017 Transfers (B,C,W/C) (FIM): 5 Gait (FIM): 5 Distance (FIM): 3=150 ft Gait Distance Comment: 300 feet Gait Level of Assist: 5 Gait Assistive Device: FWW Stairs (FIM): 2 # of Steps: 4 Stairs Level of Assist: 4 PT Buggy Loader Goals Senior Living Goals PT Buggy Loader Goals Time Frame: Dec 05, 2017 Transfers (B,C,W/C) (FIM): 6 Sit to Lying (QC): 6 Lying-Sitting on Side/Bed(QC): 6 Sit to Stand (QC): 6 Rollin Roll Left to Right (QC): 6 Chair/Iwv-np-Sinal Xfer(QC): 6 Car Transfer (QC): 4 Does the Patient Walk: Yes Gait (FIM): 6 Gait distance (FIM): 3=150 ft Distance: 300 feet Walk 10 feet (QC): 6 Walk 10ft-Uneven Surface(QC): 6 Walk 50ft with 2 Turns (QC): 6 Walk 150 ft (QC): 6 Gait Level of Assist: 6 Gait Assistive Device: FWW Stairs (FIM): 2 # of Steps: 4 1 Step (curb) (QC): 4 4 Steps (QC): 4 12 Steps (QC): 88 Stairs Level Of Assist: 5 Picking up an Object (QC): 5 PT Plan Treatment/Plan Treatment Plan: Continue Plan of Care Treatment Plan: Bed Mobility, Education, Functional Activity Amanda, Functional Strength, Group Therapy, Gait, Safety, Therapeutic Exercise, Transfers Treatment Duration: Dec 05, 2017 Frequency: At least 5 of 7 days/Wk (IRF) Estimated Hrs Per Day: 1.5 hours per day Patient and/or Family Agrees t: Yes Safety Risks/Education Patient Education: Transfer Techniques Teaching Recipient: Patient Teaching Methods: Demonstration, Discussion Response to Teaching: Verbalize Understanding, Return Demonstration, Reinforcement Needed Time/GCodes Time In: 1405 Time Out: 1420 Total Billed Treatment Time: 15 Total Billed Treatment 1,EX15m G Codes Necessary: TREVER Martínez CROWN ATTACHER Nov 20, 2017 14:22
[2017-11-20] MEDS: ACETAMINOPHEN 325 MG TABLET/CAPLET (TYLENOL) PO PRN (15:04)
--- NOTE | 2017-11-20 15:13 | Occupational Ther Daily Note ---
OT Current Status-Daily Note Subjective Pt seen in room, up in recliner, sleeping. Easily awakened and agreeable to OT. No pain mentioned. Mental Status/Objective Functional [place] Measure 0=Not Assessed/NA 4=Minimal Assistance 1=Total Assistance 5=Supervision or Setup 2=Maximal Assistance 6=Modified [place] 3=Moderate Assistance 7=Complete [place] ADL-Treatment Pt got up from recliner with SBA and walked with FWW to bathroom. Toilet transfer SBA on/off tall toilet with grab bars. Pt needed to change Depends ( dry but had a smear) but was out of them. He needed help from OT to call his and became somewhat agitated when she did not bring him new ones immediately. He was also agitated from difficulty calling his . He did 5 reps of several different bilat UE exercises with yellow theraband but was also agitated because he said he had no feeling in his hands. He was able to hold theraband with knots in the ends. Pt left up in recliner, chair alarm on, all needs met, lunch ordered. Functional [place] Measure 0=Not Assessed/NA 4=Minimal Assistance 1=Total Assistance 5=Supervision or Setup 2=Maximal Assistance 6=Modified [place] 3=Moderate Assistance 7=Complete IndependenceIRFPAI Quality Coding Scale 6 Independent with activity with or without an assistive device 5 Patient requires set up or clean up by helper. Patient completes activity by themselves 4 Supervision or touching assist (CGA). [place] provide cues , steadying assist 3 The helper provides less than half the effort to complete the activity 2 The helper provides more than half the effort to complete the activity 1 Dependent. The helper does all the effort to complete an activity 7 Patient refused to complete or attempt activity 9 The patient did not perform the activity before the current illness or injury 88 Not attempted due to Medical conditions or safety concerns Toileting (FIM): 5 (SBA for managing clothing and hygiene. Pt became agitated when he did not have new briefs to put on. Tall toilet, grab bar, FWW) Toilet/Commode Transfer (FIM): 5 (SBA getting on and off tall toilet, grab bar , FWW) Education OT Patient Education: Modified ADL techniques, Purpose of tx/functional activities Teaching Recipient: Patient Teaching Methods: Discussion Response to Teaching: Verbalize Understanding, Reinforcement Needed OT Short Term Goals Short Term Goals Time Frame: Nov 21, 2017 Eating(FIM): 5 Grooming(FIM): 5 Bathing(FIM): 5 Upper Body Dressing(FIM): 5 Lower Body Dressing(FIM): 5 Toileting(FIM): 5 Transfers (B,C,W/C) (FIM): 5 Toilet/Commode Transfer(FIM): 5 Shower Transfer(FIM): 5 Additional Short Term Goals: 1-Demonstrate ADL Tasks, 2-Verbalize Understanding , 3-ImproveStrength/Amanda 1=Demonstrate adherence to instructed precautions during ADL tasks. 2=Patient will verbalize/demonstrate understanding of assistive devices/ modifications for ADL. 3=Patient will improve strength/tolerance for activity to enable patient to perform ADL's. OT Half-Way Goals Half-Way Goals Time Frame: Dec 05, 2017 Eating (FIM): 6 Eating (QC): 6 Groomin Oral Hygiene (QC): 6 Bathing(FIM): 5 Shower/Bathe Self (QC): 5 Upper Body Dressing(FIM): 6 Upper Body Dressing (QC): 6 Lower Body Dressing(FIM): 6 Lower Body Dressing (QC): 6 On/Off Footwear (QC): 6 Toileting(FIM): 6 Toileting Hygiene (QC): 6 Transfers (B,C,W/C) (FIM): 6 Toilet/Commode Transfer(FIM): 6 Toilet/Commode Transfer (QC): 6 Shower Transfer(FIM): 5 Comprehension(FIM): 5 Expression (FIM): 5 Social Interaction(FIM): 5 Problem Solving(FIM): 4 Memory(FIM): 4 Additional Goals: 1-Demonstrate ADL Tasks, 2-Verbalize Understanding, 3- ImproveStrength/Amanda 1=Demonstrate adherence to instructed precautions during ADL tasks. 2=Patient will verbalize/demonstrate understanding of assistive devices/ modifications for ADL. 3=Patient will improve strength/tolerance for activity to enable patient to perform ADL's. OT Education/Plan Discharge Recommendations Plan/Recommendations: Continue POC Treatment Plan/Plan of Care Patient would benefit from OT for education, treatment and training to promote independence in ADL's, mobility, safety and/or upper extremity function for ADL' s. Plan of Care: ADL Retraining, Functional Mobility, Group Exercise/Act as Ind, UE Funct Exercise/Act Treatment Duration: Dec 05, 2017 Frequency: At least 5 of 7 days/Wk (IRF) Estimated Hrs Per Day: 1.5 hours per day Agreement: Yes Rehab Potential: Fair Time/GCodes Start Time: 13:00 Stop Time: 13:30 Total Time Billed (hr/min): 30 Billed Treatment Time visit, 20 minutes ADL, 10 minutes exercise MAGDALENA OSBORN OT Nov 20, 2017 15:13
[2017-11-20 17:45] VITALS: BP 162/79
[2017-11-21 04:51] VITALS: BP 167/77
[2017-11-21] MEDS: CALCIUM CARBONATE 500 MG (TUMS) TAB.CHEW PO PRN (05:29)
[2017-11-21] MEDS: KCL 20 MEQ TAB (K-DUR) PO SCH ×2 (06:24→16:55)
[2017-11-21] MEDS: OMEGA 3 (FISH OIL) 1000 MG CAP PO SCH (06:24)
[2017-11-21] MEDS: FUROSEMIDE 40 MG (LASIX) TAB PO SCH ×2 (06:24→14:40)
--- NOTE | 2017-11-21 08:15 | PM & R (SOAP) Progress Note ---
Subjective Time Seen by Provider: 07:50 Subjective/Events-last exam Patient was seen in his room this AN Patient SBA for transfers.Current meds reviewed.INR noted Objective Exam Last Set of Vital Signs Vital Signs Date Time Temp Pulse Resp B/P (MAP) Pulse Ox O2 Delivery O2 Flow Rate FiO2 11/21/17 04:51 97.2 80 18 167/77 (107) 96 Room Air 11/17/17 12:07 4.50 Capillary Refill : I&O Intake and Output 11/21/17 00:00 Intake Total 1280 ml Balance 1280 ml Intake Oral 1280 ml # Voids 13 General: Alert, Oriented X3, No Acute Distress HEENT: Atraumatic, PERRLA, EOMI, Mucous Memb Moist/[place] Neck: Supple, No JVD Lungs: Clear to Auscultation Heart: Regular Rate Abdomen: Normal Bowel Sounds, Soft, No Tenderness Extremities: Other (trace edeam) Skin: Other (Diabetic ulcer left heel and rt fourth toe) Neuro: Other (Generalized weakness with impaired sensation in feet) Results Lab Laboratory Tests 11/18/17 15:43: Glucometer 200H 11/18/17 20:46: Glucometer 178H 11/19/17 05:33: Glucometer 93 11/19/17 06:16: Prothrombin Time 47.4*H, INR Comment 5.2*H 11/19/17 17:12: Glucometer 190H 11/19/17 21:24: Glucometer 139H 11/20/17 04:32: Glucometer 66L 11/20/17 06:13: Prothrombin Time 44.6H, INR Comment 4.8H, Sodium Level 138, Potassium Level 3.7 , Chloride Level 106, Carbon Dioxide Level 22, Anion Gap 10, Blood Urea Nitrogen 30H, Creatinine 1.53H, Estimat Glomerular Filtration Rate 44, BUN/ Creatinine Ratio 20, Glucose Level 109H, Calcium Level 9.0 11/20/17 16:23: Glucometer 151H 11/21/17 04:22: Glucometer 74 Assessment/Plan Assessment 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
[2017-11-21] MEDS: ASPIRIN E.C. 81 MG (ECOTRIN) TAB PO SCH (08:25)
[2017-11-21] MEDS: FAMOTIDINE 20 MG (PEPCID) TABLET PO SCH (08:25)
[2017-11-21] MEDS: ONDANSETRON 4 MG (ZOFRAN) ORAL DISSOLVE TAB PO SCH ×2 (08:25→20:57)
[2017-11-21] MEDS: TROSPIUM 20 MG (SANCTURA) TAB PO SCH (08:25)
[2017-11-21] MEDS: CARVEDILOL 12.5 MG (COREG) TABLET PO SCH ×2 (08:25→20:50)
[2017-11-21] MEDS: CLOPIDOGREL 75 MG (PLAVIX) TABLET PO SCH (08:25)
[2017-11-21] MEDS: FERROUS SULF 325 MG (IRON) TAB PO SCH ×2 (08:25→20:50)
[2017-11-21] MEDS: LOSARTAN 25 MG (COZAAR) TAB PO SCH (08:25)
[2017-11-21] MEDS: DIGOXIN 0.125 MG (LANOXIN) TAB PO SCH (08:25)
[2017-11-21] MEDS ORDERED: OMG1KC PO (08:32)
[2017-11-21] MEDS ORDERED: INSA70301U SC ×2 (08:32)
[2017-11-21] MEDS: NEO/POLY/DEX (MAXITROL) OPHTH OINT 3.5 GM OP SCH (08:33)
[2017-11-21] MEDS: MUPIROCIN 2% OINT 22 GM (BACTROBAN) TUBE TOP SCH ×2 (08:33→20:50)
[2017-11-21] MEDS: LOTEPREDNOL OP SCH ×3 (08:34→20:50)
--- NOTE | 2017-11-21 09:38 | Speech Therapy Daily Note ---
Speech Daily Progress Note Subjective Date Seen by Provider: Nov 21, 2017 Time Seen by Provider: 08:00 The patient was laying in bed upon entrance. The patient greeted the clinician and was agreeable to participation in the cognition treatment session. To note, the patient reported he experienced a "rough night." The patient stated he was up most of the evening with nausea and low blood sugar. Per patient, the patient's RN had provided medication for his nausea prior to the clinician's visit. Objective Memory Strategies: External and Internal Memory Strategies were discussed and demonstrated on this date. The patient reported he frequently uses a calendar to recall appointments, however, his is responsible for placing items on the calendar and reminding him of the dates. Additionally, the patient uses a pill box and, similarly, his organizes the pill box weekly for him. The patient is aware of internal memory strategies, however, stated he does not have any use for them (repetition, visualization). Orientation: The patient is oriented to month, year, and day of week ( independently). Assessment Assessment Current Status: Fair Progress Treatment Plan Continue Plan of Care Communication Comprehension: 4 Expression: 4 Social Cognition Social Interaction: 5 Problem Solvin Memory: 3 Speech Short Term Goals Short Term Goals Short Term Goals 1. The patient will recall two functional memory strategies for use at home with mild clinician prompting. 2. The patient will recall three items immediately and following a five minute delay. 3. The patient will display 80% accuracy with safety problem solving and sequencing of ADL tasks. Time Frame-STG: One Week Speech Maintenance Of Way Supervisor Goals Maintenance Of Way Supervisor Goals 1. The patient will demonstrate improved cognitive linguistic skills for increased safety and function with ADL's in the least restrictive setting. Time Frame: Two Weeks Comprehension: 5 Expression: 5 Social Interaction: 5 Problem Solvin Memory: 4 Speech-Plan Treatment Plan Speech Therapy Treatment Plan: Continue Plan of Care Continue skilled speech pathology to target functional memory strategies. Treatment Duration: Nov 28, 2017 Frequency: Modified Program (IRF) (4 to 5 times per week.) Estimated Hrs Per Day: .5 hour per day Rehab Potential: Fair Safety Risks/Education Teaching Recipient: Patient Teaching Methods: Discussion Response to Teaching: Verbalize Understanding Education Topics Provided: Internal and External Memory Strategies Time Speech Therapy Time In: 08:00 Speech Therapy Time Out: 08:30 Total Billed Time: 30 Billed Treatment Time 1[address] Nov 21, 2017 09:38
--- NOTE | 2017-11-21 10:10 | D/C HH Face to Face Order ---
D/C Face to Face Orders Instructions for Patient Patient Instructions/FollowUp: Dr. Hugo Alexander on 11/27 at 130p Physician to follow Patient: Dr. Hugo Alexander Discharge Diet for Home: other diet (60CHO) Patient Data-Allergies,Ht & Wt Patient Allergies: Coded Allergies: sulfamethoxazole (Verified Allergy, Mild, RASH, 11/13/17) trimethoprim (Verified Allergy, Mild, RASH, 11/13/17) Height (Feet): 5 Height (Inches): 10.00 Weight (Pounds): 215 Weight (Ounces): 0.6 Home Health Need/Face to Face Date of Face to Face: Nov 24, 2017 Clinical Findings: Generalized weakness and fatigue, Unsteady gait I have seen Pt [id number]: Yes Discharged To: Home Diagnosis/Conditions: A FIB UTI General debil Problems/Diagnosis/Condition: Patient is Homebound due to: CognItive deficits, Tito fall risk due to instabilty, Muscle weakness Homebound Status Due to the above stated illness, injury or surgical procedure (medical condition or diagnosis) and associated clinical findings, the patient is homebound because of his/her inability to leave home except with aid of a supportive device and/or person AND leaving the home requires a considerable and taxing effort or is medically contraindicated. Pt req the following assistanc: Walker Home Health Nursing Orders Home Health Services Order: Nursing Services, Space Control Agent-Evaluate & Treat, Physical Therapy-Evaluate & Treat wound care-R 4th toe: keep dry and paint with Betadine Solution daily. L Heel: cleanse with normal saline, apply aquacel with silver daily and cover with gauze. Home Health Infusion Therapy Line Type: Saline Lock Site Location: Antecubital Therapy Orders Therapy Orders: OT (must have SN or PT order), Physical Therapy Therapy Specific Orders: Eval assistive deivces, Teach strategies/cognitive deficits, Teach enviro modifications/safety, Gait training, Increase strength/ endurance Certify Stmt I certify that this patient is under my care and that I, a nurse practitioner or a physician; a investment sales assistant working with me, had a face to face encounter that - meets the physician face to face encounter requirements with this patient as dated. I personally scribed for TRINITY COLBERT MD ([facility]) on 11/18/17 at 10:22. Electronically submitted by Marivel Reynolds ([id number]). I personally scribed for TRINITY COLBERT MD ([facility]) on 11/18/17 at 10:26. Electronically submitted by Marivel Reynolds ([id number]). I personally scribed for TRINITY COLBERT MD (NATHANIEL) on 11/19/17 at 20:41. Electronically submitted by Marivel Reynolds ([id number]). I personally scribed for TRINITY COLBERT MD (NATHANIEL) on 11/21/17 at 10:10. Electronically submitted by Marivel Reynolds ([id number]). TRINITY COLBERT MD Nov 18, 2017 10:22
--- NOTE | 2017-11-21 12:24 | Physical Therapy Daily Note ---
PT Daily Note-Current Subjective Pt sitting in recliner upon arrival. CAD DESIGNER DRAFTER asked Nurse to change wound dressing on L foot, Nurse changed. Pt agreed to PT. Pain Location: No Pain Reported Mental Status Patient Orientation: Person, Confused, Place Transfers Functional [place] Measure 0=Not Assessed/NA 4=Minimal Assistance 1=Total Assistance 5=Supervision or Setup 2=Maximal Assistance 6=Modified [place] 3=Moderate Assistance 7=Complete IndependenceIRFPAI Quality Coding Scale 6 Independent with activity with or without an assistive device 5 Patient requires set up or clean up by helper. Patient completes activity by themselves 4 Supervision or touching assist (CGA). [place] provide cues , steadying assist 3 The helper provides less than half the effort to complete the activity 2 The helper provides more than half the effort to complete the activity 1 Dependent. The helper does all the effort to complete an activity 7 Patient refused to complete or attempt activity 9 The patient did not perform the activity before the current illness or injury 88 Not attempted due to Medical conditions or safety concerns Scootin Sit to/from Stand: 5 Sit to Stand (QC): 5 Weight Bearing Right Lower Extremity: Right Full Weight Bearing Left Lower Extremity: Left Full Weight Bearing Gait Training Does the Patient Walk?: Yes Distance (FIM): 3=150 ft Distance: 150' Walk 10 feet (QC): 5 Walk 50 ft with 2 Turns(QC): 5 Walk 150 ft (QC): 5 Gait Level of Assist: 5 Gait Persons Needed: 1 Gait Assistive Device: FWW Pt has very slow xochitl, no LOB. Pt needs occasional VC to stay closer to FWW. Wheelchair Training Does the Pt Use a Wheelchair?: No Exercises Seated Therapy Exercises: Ankle pumps, Long arc quads, Hip flexion, Kicking activity Treatments Pt completes Seated Ex in recliner while waiting on Nurse so wound dressing could be changed. Nurse changes wound dressing and CAD DESIGNER DRAFTER assists pt with donning hospital socks to protect feet integrity. Pt transfers from recliner to standing using FWW at close SBA for safety. Pt ambulates in hallway using FWW at close SBA. Pt returns to room after walk due to fatigue. Pt transfers to recliner at end of tx to rest with all needs met. Assessment Current Status: Good Progress Pt is not as SOA as previous visits. Pt still fatigues easily and is confused at times as well as is not socially aware. PT Short Term Goals Short Term Goals Time Frame: Nov 21, 2017 Transfers (B,C,W/C) (FIM): 5 Gait (FIM): 5 Distance (FIM): 3=150 ft Gait Distance Comment: 300 feet Gait Level of Assist: 5 Gait Assistive Device: FWW Stairs (FIM): 2 # of Steps: 4 Stairs Level of Assist: 4 PT Fdc Goals Youtuber Goals PT Youtuber Goals Time Frame: Dec 05, 2017 Transfers (B,C,W/C) (FIM): 6 Sit to Lying (QC): 6 Lying-Sitting on Side/Bed(QC): 6 Sit to Stand (QC): 6 Rollin Roll Left to Right (QC): 6 Chair/Yfo-cd-Ogxmv Xfer(QC): 6 Car Transfer (QC): 4 Does the Patient Walk: Yes Gait (FIM): 6 Gait distance (FIM): 3=150 ft Distance: 300 feet Walk 10 feet (QC): 6 Walk 10ft-Uneven Surface(QC): 6 Walk 50ft with 2 Turns (QC): 6 Walk 150 ft (QC): 6 Gait Level of Assist: 6 Gait Assistive Device: FWW Stairs (FIM): 2 # of Steps: 4 1 Step (curb) (QC): 4 4 Steps (QC): 4 12 Steps (QC): 88 Stairs Level Of Assist: 5 Picking up an Object (QC): 5 PT Plan Problem List Problem List: Activity Tolerance, Functional Strength, Safety, Gait Treatment/Plan Treatment Plan: Continue Plan of Care Treatment Plan: Bed Mobility, Education, Functional Activity Amanda, Functional Strength, Group Therapy, Gait, Safety, Therapeutic Exercise, Transfers Treatment Duration: Dec 05, 2017 Frequency: At least 5 of 7 days/Wk (IRF) Estimated Hrs Per Day: 1.5 hours per day Patient and/or Family Agrees t: Yes Safety Risks/Education Patient Education: Gait Training, Transfer Techniques, Correct Positioning, Safety Issues Teaching Recipient: Patient Teaching Methods: Discussion Response to Teaching: Verbalize Understanding Time/GCodes Time In: 1130 Time Out: 1215 Total Billed Treatment 1, EX (15m), GT (15m) & FA (15m) TYRONE OLMOS CAD DESIGNER DRAFTER Nov 21, 2017 12:24
--- NOTE | 2017-11-21 13:00 | Occupational Ther Daily Note ---
OT Current Status-Daily Note Subjective Pt seen in room, up in recliner, agreeable to OT. No pain mentioned Appearance Alert, cooperative. Looked puzzled at times and seemed more SOB throughout tx. Mental Status/Objective Functional [place] Measure 0=Not Assessed/NA 4=Minimal Assistance 1=Total Assistance 5=Supervision or Setup 2=Maximal Assistance 6=Modified [place] 3=Moderate Assistance 7=Complete [place] ADL-Treatment Pt got up from recliner without help and walked SBA, FWW to bathroom for ADLs. He got on/off toilet with SBA, FWW and on/off shower with SBA/FWW. He needed skilled cues to sit to take socks off (don't step out of them when standing) and to sit during shower for energy conservation and safety. He was unsteady walking backwards from sink with FWW and needed CGA. He also became SOB when standing at sink to shave and needed to sit down midway through activity. Frequent recovery periods throughout ADLs. O2 sats were consistently 95% and above but heart rate was in 90s and 100s. Pt left up in recliner, chair alarm on , all needs met. Functional [place] Measure 0=Not Assessed/NA 4=Minimal Assistance 1=Total Assistance 5=Supervision or Setup 2=Maximal Assistance 6=Modified [place] 3=Moderate Assistance 7=Complete IndependenceIRFPAI Quality Coding Scale 6 Independent with activity with or without an assistive device 5 Patient requires set up or clean up by helper. Patient completes activity by themselves 4 Supervision or touching assist (CGA). [place] provide cues , steadying assist 3 The helper provides less than half the effort to complete the activity 2 The helper provides more than half the effort to complete the activity 1 Dependent. The helper does all the effort to complete an activity 7 Patient refused to complete or attempt activity 9 The patient did not perform the activity before the current illness or injury 88 Not attempted due to Medical conditions or safety concerns Grooming (FIM): 5 (SBA standing at sink to shave, FWW. Washed face and hands in shower. Required a sit down recovery period midpoint while shaving) Bathing (FIM): 5 (Pt washed and dried all parts but needed skilled cues to sit to complete bathing. SBA when standing to rinse and wash bottom. Shower bench, grab bars, hand held shower) Upper Body (FIM): 5 (Doffed and donned shirt with setup, supervision. Some difficulty finding opening for sleeves, limited by decreased vision and decreased sensation) Lower Body Dressing (FIM): 5 (SBA to stand to pull pants up and down. Able to get pants on over feet. FWW. Socks not put on due to waiting for dressing change on foot) Toileting (FIM): 5 (SBA to manage clothing and hygiene. BSC over toilet, grab bars, FWW) Toilet/Commode Transfer (FIM): 5 (SBA, FWW getting on and off BSC over toilet, grab bar) Shower Transfer(FIM): 5 (SBA, getting in and out of shower, on and off shower chair) Education OT Patient Education: Modified ADL techniques, Progress toward Goal/Update tx plan, Purpose of tx/functional activities, Safety issues Teaching Recipient: Patient Teaching Methods: Discussion Response to Teaching: Reinforcement Needed OT Short Term Goals Short Term Goals Time Frame: Nov 21, 2017 Eating(FIM): 5 Grooming(FIM): 5 Bathing(FIM): 5 Upper Body Dressing(FIM): 5 Lower Body Dressing(FIM): 5 Toileting(FIM): 5 Transfers (B,C,W/C) (FIM): 5 Toilet/Commode Transfer(FIM): 5 Shower Transfer(FIM): 5 Additional Short Term Goals: 1-Demonstrate ADL Tasks, 2-Verbalize Understanding , 3-ImproveStrength/Amanda 1=Demonstrate adherence to instructed precautions during ADL tasks. 2=Patient will verbalize/demonstrate understanding of assistive devices/ modifications for ADL. 3=Patient will improve strength/tolerance for activity to enable patient to perform ADL's. OT Intermediate Goals Developer Advocate Goals Time Frame: Dec 05, 2017 Eating (FIM): 6 Eating (QC): 6 Groomin Oral Hygiene (QC): 6 Bathing(FIM): 5 Shower/Bathe Self (QC): 5 Upper Body Dressing(FIM): 6 Upper Body Dressing (QC): 6 Lower Body Dressing(FIM): 6 Lower Body Dressing (QC): 6 On/Off Footwear (QC): 6 Toileting(FIM): 6 Toileting Hygiene (QC): 6 Transfers (B,C,W/C) (FIM): 6 Toilet/Commode Transfer(FIM): 6 Toilet/Commode Transfer (QC): 6 Shower Transfer(FIM): 5 Comprehension(FIM): 5 Expression (FIM): 5 Social Interaction(FIM): 5 Problem Solving(FIM): 4 Memory(FIM): 4 Additional Goals: 1-Demonstrate ADL Tasks, 2-Verbalize Understanding, 3- ImproveStrength/Amanda 1=Demonstrate adherence to instructed precautions during ADL tasks. 2=Patient will verbalize/demonstrate understanding of assistive devices/ modifications for ADL. 3=Patient will improve strength/tolerance for activity to enable patient to perform ADL's. OT Education/Plan Discharge Recommendations Plan/Recommendations: Continue POC Treatment Plan/Plan of Care Patient would benefit from OT for education, treatment and training to promote independence in ADL's, mobility, safety and/or upper extremity function for ADL' s. Plan of Care: ADL Retraining, Functional Mobility, Group Exercise/Act as Ind, UE Funct Exercise/Act Treatment Duration: Dec 05, 2017 Frequency: At least 5 of 7 days/Wk (IRF) Estimated Hrs Per Day: 1.5 hours per day Agreement: Yes Rehab Potential: Fair Time/GCodes Start Time: 09:30 Stop Time: 10:28 Total Time Billed (hr/min): 58 Billed Treatment Time visit, 58 minutes ADL MAGDALENA OSBORN OT Nov 21, 2017 13:00
--- NOTE | 2017-11-21 13:31 | Occupational Ther Daily Note ---
OT Current Status-Daily Note Subjective Pt seen in room, up in recliner, agreeable to OT. No pain mentioned. Appearance Alert, cooperative, looked puzzled at times Mental Status/Objective Functional [place] Measure 0=Not Assessed/NA 4=Minimal Assistance 1=Total Assistance 5=Supervision or Setup 2=Maximal Assistance 6=Modified [place] 3=Moderate Assistance 7=Complete [place] ADL-Treatment Functional [place] Measure 0=Not Assessed/NA 4=Minimal Assistance 1=Total Assistance 5=Supervision or Setup 2=Maximal Assistance 6=Modified [place] 3=Moderate Assistance 7=Complete IndependenceIRFPAI Quality Coding Scale 6 Independent with activity with or without an assistive device 5 Patient requires set up or clean up by helper. Patient completes activity by themselves 4 Supervision or touching assist (CGA). [place] provide cues , steadying assist 3 The helper provides less than half the effort to complete the activity 2 The helper provides more than half the effort to complete the activity 1 Dependent. The helper does all the effort to complete an activity 7 Patient refused to complete or attempt activity 9 The patient did not perform the activity before the current illness or injury 88 Not attempted due to Medical conditions or safety concerns Other Treatment Pt did 5 reps 3 different bilat UE exercise with yellow theraband, requiring a recovery period between each set of 5 due to SOB. To strengthen arms to help with ADLs and to increase activity tolerance. He also perseverated on therapist traveling out of town this weekend and concerned about icy roads. Pt left up in recliner, chair alarm on, all needs met. Education OT Patient Education: Exercise program, Purpose of tx/functional activities Teaching Recipient: Patient Teaching Methods: Demonstration, Discussion Response to Teaching: Return Demonstration, Reinforcement Needed OT Short Term Goals Short Term Goals Time Frame: Nov 21, 2017 Eating(FIM): 5 Grooming(FIM): 5 Bathing(FIM): 5 Upper Body Dressing(FIM): 5 Lower Body Dressing(FIM): 5 Toileting(FIM): 5 Transfers (B,C,W/C) (FIM): 5 Toilet/Commode Transfer(FIM): 5 Shower Transfer(FIM): 5 Additional Short Term Goals: 1-Demonstrate ADL Tasks, 2-Verbalize Understanding , 3-ImproveStrength/Amanda 1=Demonstrate adherence to instructed precautions during ADL tasks. 2=Patient will verbalize/demonstrate understanding of assistive devices/ modifications for ADL. 3=Patient will improve strength/tolerance for activity to enable patient to perform ADL's. OT Pyrometer Operator Goals Pyrometer Operator Goals Time Frame: Dec 05, 2017 Eating (FIM): 6 Eating (QC): 6 Groomin Oral Hygiene (QC): 6 Bathing(FIM): 5 Shower/Bathe Self (QC): 5 Upper Body Dressing(FIM): 6 Upper Body Dressing (QC): 6 Lower Body Dressing(FIM): 6 Lower Body Dressing (QC): 6 On/Off Footwear (QC): 6 Toileting(FIM): 6 Toileting Hygiene (QC): 6 Transfers (B,C,W/C) (FIM): 6 Toilet/Commode Transfer(FIM): 6 Toilet/Commode Transfer (QC): 6 Shower Transfer(FIM): 5 Comprehension(FIM): 5 Expression (FIM): 5 Social Interaction(FIM): 5 Problem Solving(FIM): 4 Memory(FIM): 4 Additional Goals: 1-Demonstrate ADL Tasks, 2-Verbalize Understanding, 3- ImproveStrength/Amanda 1=Demonstrate adherence to instructed precautions during ADL tasks. 2=Patient will verbalize/demonstrate understanding of assistive devices/ modifications for ADL. 3=Patient will improve strength/tolerance for activity to enable patient to perform ADL's. OT Education/Plan Discharge Recommendations Plan/Recommendations: Continue POC Treatment Plan/Plan of Care Patient would benefit from OT for education, treatment and training to promote independence in ADL's, mobility, safety and/or upper extremity function for ADL' s. Plan of Care: ADL Retraining, Functional Mobility, Group Exercise/Act as Ind, UE Funct Exercise/Act Treatment Duration: Dec 05, 2017 Frequency: At least 5 of 7 days/Wk (IRF) Estimated Hrs Per Day: 1.5 hours per day Agreement: Yes Rehab Potential: Fair Time/GCodes Start Time: 13:04 Stop Time: 13:23 Total Time Billed (hr/min): 19 Billed Treatment Time visit, 19 minutes exercise MAGDALENA OSBORN OT Nov 21, 2017 13:30
[2017-11-21] MEDS: inSUlin Protamine/ASPart 70/30 1 UNIT/0.01 ML DOSE SC SCH ×2 (14:39→20:50)
--- NOTE | 2017-11-21 15:02 | Physical Therapy Daily Note ---
PT Daily Note-Current Subjective Pt sitting in recliner upon arrival. Pt agrees to PT. Pain Location: No Pain Reported Mental Status Patient Orientation: Person, Place, Situation Transfers Functional [place] Measure 0=Not Assessed/NA 4=Minimal Assistance 1=Total Assistance 5=Supervision or Setup 2=Maximal Assistance 6=Modified [place] 3=Moderate Assistance 7=Complete IndependenceIRFPAI Quality Coding Scale 6 Independent with activity with or without an assistive device 5 Patient requires set up or clean up by helper. Patient completes activity by themselves 4 Supervision or touching assist (CGA). [place] provide cues , steadying assist 3 The helper provides less than half the effort to complete the activity 2 The helper provides more than half the effort to complete the activity 1 Dependent. The helper does all the effort to complete an activity 7 Patient refused to complete or attempt activity 9 The patient did not perform the activity before the current illness or injury 88 Not attempted due to Medical conditions or safety concerns Scootin Sit to/from Stand: 5 Sit to Stand (QC): 5 Weight Bearing Right Lower Extremity: Right Full Weight Bearing Left Lower Extremity: Left Full Weight Bearing Gait Training Does the Patient Walk?: Yes Distance (FIM): 3=150 ft Distance: 150' Walk 10 feet (QC): 5 Walk 50 ft with 2 Turns(QC): 5 Walk 150 ft (QC): 5 Gait Level of Assist: 5 Gait Persons Needed: 1 Gait Assistive Device: FWW Pt walks with slow xochitl, no LOB but fatigues easy. Wheelchair Training Does the Pt Use a Wheelchair?: No Treatments Pt transfers from recliner to standing using FWW at close SBA. Pt uses restroom followed by ambulating in hallway using FWW at close SBA. Pt focuses on turns as well as proper positioning within FWW. Pt returns to room due to fatigue. Pt transfers back to recliner at end of tx with all needs met. Assessment Current Status: Good Progress Pt continues to have less SOA during ambulation but still fatigues easily. PT Short Term Goals Short Term Goals Time Frame: Nov 21, 2017 Transfers (B,C,W/C) (FIM): 5 Gait (FIM): 5 Distance (FIM): 3=150 ft Gait Distance Comment: 300 feet Gait Level of Assist: 5 Gait Assistive Device: FWW Stairs (FIM): 2 # of Steps: 4 Stairs Level of Assist: 4 PT Ornamental Plasterer Helper Goals Ornamental Plasterer Helper Goals PT Ornamental Plasterer Helper Goals Time Frame: Dec 05, 2017 Transfers (B,C,W/C) (FIM): 6 Sit to Lying (QC): 6 Lying-Sitting on Side/Bed(QC): 6 Sit to Stand (QC): 6 Rollin Roll Left to Right (QC): 6 Chair/Ynk-ch-Armsy Xfer(QC): 6 Car Transfer (QC): 4 Does the Patient Walk: Yes Gait (FIM): 6 Gait distance (FIM): 3=150 ft Distance: 300 feet Walk 10 feet (QC): 6 Walk 10ft-Uneven Surface(QC): 6 Walk 50ft with 2 Turns (QC): 6 Walk 150 ft (QC): 6 Gait Level of Assist: 6 Gait Assistive Device: FWW Stairs (FIM): 2 # of Steps: 4 1 Step (curb) (QC): 4 4 Steps (QC): 4 12 Steps (QC): 88 Stairs Level Of Assist: 5 Picking up an Object (QC): 5 PT Plan Problem List Problem List: Activity Tolerance, Functional Strength, Safety, Balance, Gait Treatment/Plan Treatment Plan: Continue Plan of Care Treatment Plan: Bed Mobility, Education, Functional Activity Amanda, Functional Strength, Group Therapy, Gait, Safety, Therapeutic Exercise, Transfers Treatment Duration: Dec 05, 2017 Frequency: At least 5 of 7 days/Wk (IRF) Estimated Hrs Per Day: 1.5 hours per day Patient and/or Family Agrees t: Yes Safety Risks/Education Patient Education: Gait Training, Transfer Techniques, Correct Positioning, Safety Issues Teaching Recipient: Patient Teaching Methods: Discussion Response to Teaching: Verbalize Understanding Time/GCodes Time In: 1330 Time Out: 1400 Total Billed Treatment 1, FA (15m) & GT (15m) TYRONE OLMOS ELEMENTARY ELL TEACHER Nov 21, 2017 15:02
--- NOTE | 2017-11-21 17:50 | Progress Note (SOAP) ---
Subjective Subjective Date Seen by Provider: Nov 21, 2017 Time Seen by Provider: 17:45 82 yo M more confused today compared to a couple days ago when I saw him- He recognized me as the doctor on [address] but could not remember my name. He also was confused as to why I looked so young but he was aged as he thought I grew up around the same time he did. He was unsure of where he was or why he was in Rehab. Denies pain. Reports he feels good. Participating with therapies. No active bleeding- INR still elevated; holding warfarin. Review of Systems General: No Chills, No Night Sweats HEENT: No Head Aches, No Visual Changes Pulmonary: No Dyspnea, No Cough Cardiovascular: No: Chest Pain, Palpitations, Orthopnea Gastrointestinal: No: Nausea, Vomiting, Abdominal Pain Genitourinary: No Dysuria, No Frequency Musculoskeletal: No: neck pain, shoulder pain Neurological: Weakness, Confusion Objective Exam Vital Signs Vital Signs Date Time Temp Pulse Resp B/P (MAP) Pulse Ox O2 Delivery O2 Flow Rate FiO2 11/21/17 09:00 Room Air 11/21/17 04:51 97.2 80 18 167/77 (107) 96 Room Air 11/20/17 21:00 Room Air I & O 11/21/17 07:00 Intake Total 1280 ml Balance 1280 ml General Appearance: No Apparent Distress, WD/WN HEENT: PERRL/EOMI Neck: Full Range of Motion, Normal Inspection, Non Tender Respiratory: Chest Non Tender, Lungs Clear, Normal Breath Sounds, No Accessory Muscle Use, No Respiratory Distress Cardiovascular: Regular Rate, Rhythm Gastrointestinal: Normal Bowel Sounds, Non Tender, Soft Rectal: Deferred Back: No CVA Tenderness, No Vertebral Tenderness Extremity: No Calf Tenderness, Other (knees are painful) Neurologic/Psychiatric: Alert, Other (confused) Skin: Warm/Dry Results Lab Laboratory Tests 11/21/17 04:22: Glucometer 74 11/21/17 15:54: Glucometer 155H Assessment/Plan Assessment/Plan Assessment/Plan R53.1 Weakness/deconditioning- inpatient rehab- doing well. 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 (G47.33) Obstructive sleep apnea - home cpap (N18.3) Chronic kidney disease, stage 3 (moderate) --monitor Cr. currently at baseline Cr- fluid hydration. chronic wound- bottom of foot- wound care consult- completed cefdinir and linezolid (J44.9) Chronic obstructive pulmonary disease- continue oxygen prn (currently on room air) (I48.91) atrial fibrillation- holding warfarin as INR supratherapeutic. re- checking INR (I15.9) Secondary hypertension- continue current regimen. (K21.9) Gastro-esophageal reflux disease without esophagitis Chronic (F03.90) dementia without behavioral disturbance- monitor- worsened by infections- Dispo: Continue Inpatient rehab - review of rehab notes- plan to discharge to home on Friday November 24, 2017 with home health. monitor his mental status- he is more confused today compared to previous days- but as noted in consult note- this confusion is not new as this is the state his finds in the following morning after going to bed. Admission Dx as above Problems: Clinical Quality Measures DVT/VTE Risk/Contraindication: Risk Factor Score Per Nursin RFS Level Per Nursing on Admit: 4+=Very High RUBEN SANCHEZ MD Nov 21, 2017 17:50
[2017-11-21 18:00] VITALS: BP 166/78
[2017-11-22 03:00] VITALS: BP 156/74
[2017-11-22 05:46] LABS: BASOPHILS % (AUTO) 0 % (0-10); EOSINOPHILS # (AUTO) 0.2 10^3/uL (0.0-0.3); EOSINOPHILS % (AUTO) 2 % (0-10); HEMATOCRIT 36 % (40-54); LYMPHOCYTES # (AUTO) 2.2 X 10^3 (1.0-4.0); LYMPHOCYTES % (AUTO) 18 % (12-44); MEAN CORPUSCULAR HEMOGLOBIN 30 PG (25-34); MEAN CORPUSCULAR HGB CONC 36 G/DL (32-36); MEAN CORPUSCULAR VOLUME 85 FL (80-99); MEAN PLATELET VOLUME 10.7 FL (7.4-10.4); MONOCYTES # (AUTO) 1.2 X 10^3 (0.0-1.0); MONOCYTES % (AUTO) 10 % (0-12); NEUTROPHILS # (AUTO) 8.4 X 10^3 (1.8-7.8); NEUTROPHILS % (AUTO) 70 % (42-75); PLATELET COUNT 99 10^3/uL (130-400); RED BLOOD COUNT 4.27 10^6/uL (4.35-5.85); RED CELL DISTRIBUTION WIDTH 13.8 % (10.0-14.5)
[2017-11-22 05:57] LABS: INR 2.3 (0.8-1.4)
[2017-11-22] MEDS: OMEGA 3 (FISH OIL) 1000 MG CAP PO SCH (06:11)
[2017-11-22] MEDS: FUROSEMIDE 40 MG (LASIX) TAB PO SCH ×2 (06:11→14:46)
[2017-11-22] MEDS: KCL 20 MEQ TAB (K-DUR) PO SCH ×2 (06:12→17:27)
[2017-11-22] MEDS: CARVEDILOL 12.5 MG (COREG) TABLET PO SCH ×2 (08:32→20:59)
[2017-11-22] MEDS: ASPIRIN E.C. 81 MG (ECOTRIN) TAB PO SCH (08:32)
[2017-11-22] MEDS: FAMOTIDINE 20 MG (PEPCID) TABLET PO SCH (08:32)
[2017-11-22] MEDS: ONDANSETRON 4 MG (ZOFRAN) ORAL DISSOLVE TAB PO SCH ×2 (08:32→20:59)
[2017-11-22] MEDS: FERROUS SULF 325 MG (IRON) TAB PO SCH ×2 (08:32→20:58)
[2017-11-22] MEDS: LOTEPREDNOL OP SCH ×3 (08:33→21:19)
[2017-11-22] MEDS: LOSARTAN 25 MG (COZAAR) TAB PO SCH (08:33)
[2017-11-22] MEDS: NEO/POLY/DEX (MAXITROL) OPHTH OINT 3.5 GM OP SCH (08:33)
[2017-11-22] MEDS: CLOPIDOGREL 75 MG (PLAVIX) TABLET PO SCH (08:33)
[2017-11-22] MEDS: TROSPIUM 20 MG (SANCTURA) TAB PO SCH (08:33)
[2017-11-22] MEDS: DIGOXIN 0.125 MG (LANOXIN) TAB PO SCH (08:33)
[2017-11-22] MEDS: MUPIROCIN 2% OINT 22 GM (BACTROBAN) TUBE TOP SCH ×2 (08:34→21:19)
--- NOTE | 2017-11-22 08:37 | Physical Therapy Daily Note ---
PT Daily Note-Current Subjective Pt sitting in recliner upon arrival. Pt receives FIM scoring since pt is discharging on Friday. Pain Location: No Pain Reported Mental Status Patient Orientation: Person, Place Transfers Functional [place] Measure 0=Not Assessed/NA 4=Minimal Assistance 1=Total Assistance 5=Supervision or Setup 2=Maximal Assistance 6=Modified [place] 3=Moderate Assistance 7=Complete IndependenceIRFPAI Quality Coding Scale 6 Independent with activity with or without an assistive device 5 Patient requires set up or clean up by helper. Patient completes activity by themselves 4 Supervision or touching assist (CGA). [place] provide cues , steadying assist 3 The helper provides less than half the effort to complete the activity 2 The helper provides more than half the effort to complete the activity 1 Dependent. The helper does all the effort to complete an activity 7 Patient refused to complete or attempt activity 9 The patient did not perform the activity before the current illness or injury 88 Not attempted due to Medical conditions or safety concerns Transfers (B, C, W/C) (FIM): 5 Scootin Rollin Roll Left to Right (QC): 5 Supine to/from Sit: 5 Sit to/from Stand: 5 Sit to Lying (QC): 5 Sit to Stand (QC): 5 Chair/Mlg-aj-Fytpu Xfer(QC): 5 Bed to/from Chair: 5 Car Transfer (QC): 5 Pt takes time with all activities although he can complete them SBA. Pt fatigues easily and is SOA with little activity. Weight Bearing Right Lower Extremity: Right Full Weight Bearing Left Lower Extremity: Left Full Weight Bearing Gait Training Does the Patient Walk?: Yes Gait (FIM): 5 Distance (FIM): 3=150 ft Distance: 175' Walk 10 feet (QC): 5 Walk 50 ft with 2 Turns(QC): 5 Walk 150 ft (QC): 5 Walking 10ft/uneven surface-QC: 5 Gait Level of Assist: 5 Gait Persons Needed: 1 Gait Assistive Device: FWW Pt walks with slow & shuffling gait pattern. Pt receives VC to stay closer to FWW during ambulation especially when pt is fatigued. Wheelchair Training Does the Pt Use a Wheelchair?: No Stair Training Stair Training: Handrails/: 2 handrails Stairs (FIM): 2 #of Steps: 4 1 Step (curb) (QC): 5 4 Steps (QC): 5 Stairs: Pattern: Step to Level of Assist: 5 Balance Picking up an Object (QC): 88 Special Test Comments Pt is not safe to perform this activity due to poor balance & dizziness. Treatments Pt transfers from recliner to standing using FWW at SBA. Pt ambulates in hallway using FWW at SBA. Pt completes car transfer, ambulating across varying surface for at least 10' as well as 1 set of 4 stairs at close SBA. Pt also works on bed mobility before transferring back to recliner at end of tx with all needs met. Assessment Current Status: Good Progress Pt had more SOA than yesterday's tx and fatigues easily. Pt takes rest breaks to recover. Pt receives VC to not let go of FWW too early when sitting. Pt is not always socially aware of his limitations. This seems to be baseline though. PT Short Term Goals Short Term Goals Time Frame: Nov 21, 2017 Transfers (B,C,W/C) (FIM): 5 Gait (FIM): 5 Distance (FIM): 3=150 ft Gait Distance Comment: 300 feet Gait Level of Assist: 5 Gait Assistive Device: FWW Stairs (FIM): 2 # of Steps: 4 Stairs Level of Assist: 4 PT [facility] Goals Circus Laborer Goals PT [facility] Goals Time Frame: Dec 05, 2017 Transfers (B,C,W/C) (FIM): 6 Sit to Lying (QC): 6 Lying-Sitting on Side/Bed(QC): 6 Sit to Stand (QC): 6 Rollin Roll Left to Right (QC): 6 Chair/Yyp-bw-Glglj Xfer(QC): 6 Car Transfer (QC): 4 Does the Patient Walk: Yes Gait (FIM): 6 Gait distance (FIM): 3=150 ft Distance: 300 feet Walk 10 feet (QC): 6 Walk 10ft-Uneven Surface(QC): 6 Walk 50ft with 2 Turns (QC): 6 Walk 150 ft (QC): 6 Gait Level of Assist: 6 Gait Assistive Device: FWW Stairs (FIM): 2 # of Steps: 4 1 Step (curb) (QC): 4 4 Steps (QC): 4 12 Steps (QC): 88 Stairs Level Of Assist: 5 Picking up an Object (QC): 5 PT Plan Problem List Problem List: Activity Tolerance, Functional Strength, Safety, Balance, Gait, Transfer Treatment/Plan Treatment Plan: Continue Plan of Care Treatment Plan: Bed Mobility, Education, Functional Activity Amanda, Functional Strength, Group Therapy, Gait, Safety, Therapeutic Exercise, Transfers Treatment Duration: Dec 05, 2017 Frequency: At least 5 of 7 days/Wk (IRF) Estimated Hrs Per Day: 1.5 hours per day Patient and/or Family Agrees t: Yes Safety Risks/Education Patient Education: Gait Training, Transfer Techniques, Correct Positioning, Safety Issues Teaching Recipient: Patient Teaching Methods: Discussion Response to Teaching: Reinforcement Needed Time/GCodes Time In: 750 Time Out: 825 Total Billed Treatment Time: 35 Total Billed Treatment 1, GT (15m) & FA (20m) TYRONE OLMOS ANATOMIC PATHOLOGIST Nov 22, 2017 08:37
[2017-11-22] MEDS: inSUlin Protamine/ASPart 70/30 1 UNIT/0.01 ML DOSE SC SCH ×2 (14:46→20:59)
[2017-11-22 18:00] VITALS: BP 145/71
[2017-11-22] MEDS: warFARin 5 MG (COUMADIN) TAB PO SCH (18:55)
[2017-11-22] MEDS ORDERED: HALOPERIDOL 5 MG/ML (HALDOL) AMP IM PRN (22:00)
[2017-11-22] MEDS ORDERED: LORazepam INJ 2 MG/ML (ATIVAN) VIAL IM PRN (22:00)
[2017-11-23 00:03] LABS: BILIRUBIN,URINE NEGATIVE (NEGATIVE); CLARITY,URINE CLEAR; COLOR,URINE YELLOW; GLUCOSE, URINE (UA) 2+ (NEGATIVE); KETONES,URINE NEGATIVE (NEGATIVE); LEUKOCYTE ESTERASE ,URINE 2+ (NEGATIVE); NITRITE,URINE NEGATIVE (NEGATIVE); PH,URINE 6.5 (5-9); PROTEIN,URINE 4+ (NEGATIVE); UROBILINOGEN,URINE NORMAL (NORMAL)
[2017-11-23 00:17] LABS: BACTERIA,URINE FEW /HPF
[2017-11-23] MEDS: KCL 20 MEQ TAB (K-DUR) PO SCH ×2 (06:08→16:56)
[2017-11-23] MEDS: ACETAMINOPHEN 325 MG TABLET/CAPLET (TYLENOL) PO PRN (06:08)
[2017-11-23] MEDS: FUROSEMIDE 40 MG (LASIX) TAB PO SCH ×2 (06:08→14:14)
[2017-11-23] MEDS: OMEGA 3 (FISH OIL) 1000 MG CAP PO SCH (06:08)
[2017-11-23 06:12] VITALS: BP_SYST 159; BP_SYST 172; BP_DIAS 82; BP_DIAS 95
[2017-11-23] MEDS: FERROUS SULF 325 MG (IRON) TAB PO SCH ×2 (08:49→21:04)
[2017-11-23] MEDS: FAMOTIDINE 20 MG (PEPCID) TABLET PO SCH (08:49)
[2017-11-23] MEDS: DIGOXIN 0.125 MG (LANOXIN) TAB PO SCH (08:50)
[2017-11-23] MEDS: CLOPIDOGREL 75 MG (PLAVIX) TABLET PO SCH (08:50)
[2017-11-23] MEDS: CARVEDILOL 12.5 MG (COREG) TABLET PO SCH ×2 (08:50→21:04)
[2017-11-23] MEDS: ASPIRIN E.C. 81 MG (ECOTRIN) TAB PO SCH (08:50)
[2017-11-23] MEDS: TROSPIUM 20 MG (SANCTURA) TAB PO SCH (08:50)
[2017-11-23] MEDS: HYDROcodone/APAP 7.5 MG/325 MG (LORTAB, LORCET PLUS) TABLET PO PRN (08:51)
[2017-11-23] MEDS: ONDANSETRON 4 MG (ZOFRAN) ORAL DISSOLVE TAB PO SCH ×2 (08:51→21:03)
[2017-11-23] MEDS: MUPIROCIN 2% OINT 22 GM (BACTROBAN) TUBE TOP SCH ×2 (08:53→21:05)
[2017-11-23] MEDS: NEO/POLY/DEX (MAXITROL) OPHTH OINT 3.5 GM OP SCH (08:54)
[2017-11-23] MEDS: LOTEPREDNOL OP SCH ×3 (08:54→21:05)
[2017-11-23] MEDS: LOSARTAN 25 MG (COZAAR) TAB PO SCH (11:48)
[2017-11-23] MEDS: inSUlin Protamine/ASPart 70/30 1 UNIT/0.01 ML DOSE SC SCH ×2 (14:15→21:03)
[2017-11-23] MEDS: warFARin 7.5 MG (COUMADIN) TAB PO SCH (16:56)
[2017-11-23 17:57] VITALS: BP 145/78
[2017-11-24 05:25] LABS: INR 1.9 (0.8-1.4); PROTHROMBIN TIME PATIENT 21.9 SEC (12.2-14.7)
[2017-11-24] MEDS: FUROSEMIDE 40 MG (LASIX) TAB PO SCH ×2 (06:25→14:18)
[2017-11-24] MEDS: OMEGA 3 (FISH OIL) 1000 MG CAP PO SCH (06:25)
[2017-11-24] MEDS: KCL 20 MEQ TAB (K-DUR) PO SCH ×2 (06:26→17:09)
[2017-11-24 06:30] VITALS: BP 171/80
[2017-11-24] MEDS: TROSPIUM 20 MG (SANCTURA) TAB PO SCH (08:45)
[2017-11-24] MEDS: CARVEDILOL 12.5 MG (COREG) TABLET PO SCH ×2 (08:45→20:58)
[2017-11-24] MEDS: DIGOXIN 0.125 MG (LANOXIN) TAB PO SCH (08:45)
[2017-11-24] MEDS: LOSARTAN 25 MG (COZAAR) TAB PO SCH (08:45)
[2017-11-24] MEDS: ASPIRIN E.C. 81 MG (ECOTRIN) TAB PO SCH (08:45)
[2017-11-24] MEDS: FAMOTIDINE 20 MG (PEPCID) TABLET PO SCH (08:46)
[2017-11-24] MEDS: FERROUS SULF 325 MG (IRON) TAB PO SCH ×2 (08:46→20:58)
[2017-11-24] MEDS: CLOPIDOGREL 75 MG (PLAVIX) TABLET PO SCH (08:46)
[2017-11-24] MEDS: ONDANSETRON 4 MG (ZOFRAN) ORAL DISSOLVE TAB PO SCH ×2 (09:21→20:58)
[2017-11-24] MEDS: NEO/POLY/DEX (MAXITROL) OPHTH OINT 3.5 GM OP SCH (09:24)
[2017-11-24] MEDS: MUPIROCIN 2% OINT 22 GM (BACTROBAN) TUBE TOP SCH ×2 (09:24→21:04)
[2017-11-24] MEDS: LOTEPREDNOL OP SCH ×3 (09:24→20:59)
--- NOTE | 2017-11-24 09:33 | Physical Therapy Daily Note ---
PT Daily Note-Current Subjective Patient in recliner pre tx, agrees to PT, no complaints of pain. Patient may be discharging today, FIM's will be obtained. Appearance Patient in recliner post tx with nurse call, phone, tray, chair alarm on. Mental Status Patient Orientation: Person, Confused Transfers Functional [place] Measure 0=Not Assessed/NA 4=Minimal Assistance 1=Total Assistance 5=Supervision or Setup 2=Maximal Assistance 6=Modified [place] 3=Moderate Assistance 7=Complete IndependenceIRFPAI Quality Coding Scale 6 Independent with activity with or without an assistive device 5 Patient requires set up or clean up by helper. Patient completes activity by themselves 4 Supervision or touching assist (CGA). [place] provide cues , steadying assist 3 The helper provides less than half the effort to complete the activity 2 The helper provides more than half the effort to complete the activity 1 Dependent. The helper does all the effort to complete an activity 7 Patient refused to complete or attempt activity 9 The patient did not perform the activity before the current illness or injury 88 Not attempted due to Medical conditions or safety concerns Transfers (B, C, W/C) (FIM): 5 Scootin Rollin Roll Left to Right (QC): 6 Supine to/from Sit: 6 Sit to/from Stand: 5 Sit to Lying (QC): 6 Sit to Stand (QC): 4 Chair/[id number]-Pdxrn Xfer(QC): 4 Bed to/from Chair: 5 Car Transfer (QC): 3 Patient performs bed mobility with mod I, sit to stand and transfers with SBA. Patient requires min assist for a car transfer, he had an unsteady moment during the transfer and required min assist from therapist to keep from falling because he did not reach back for a handhold. Weight Bearing Right Lower Extremity: Right Full Weight Bearing Left Lower Extremity: Left Full Weight Bearing Gait Training Gait (FIM): 5 Distance: 200', 100' Walk 10 feet (QC): 4 Walk 50 ft with 2 Turns(QC): 4 Walk 150 ft (QC): 4 Walking 10ft/uneven surface-QC: 4 Gait Level of Assist: 5 Gait Persons Needed: 1 Gait Assistive Device: FWW Patient can ambulate 200' with a rolling walker with SBA, including 50' with at least 2 turns of 90 degrees and 10' over an uneven surface. Wheelchair Training Does the Pt Use a Wheelchair?: No Stair Training Stair Training: Handrails/: 2 handrails Stairs (FIM): 2 #of Steps: 8 1 Step (curb) (QC): 4 4 Steps (QC): 4 12 Steps (QC): 88 Stairs: Pattern: Step to Level of Assist: 5 Patient can go up and down 8 steps using 2 handrails with SBA but he does need close supervision and cues for safety and foot placement. Balance Picking up an Object (QC): 4 (CGA and using a rolling walker) Treatments bed mobility and transfers, ambulation, car transfer, stairs Assessment Current Status: Fair Progress improving mobility but confused PT Short Term Goals Short Term Goals Time Frame: Nov 21, 2017 Transfers (B,C,W/C) (FIM): 5 Gait (FIM): 5 Distance (FIM): 3=150 ft Gait Distance Comment: 300 feet Gait Level of Assist: 5 Gait Assistive Device: FWW Stairs (FIM): 2 # of Steps: 4 Stairs Level of Assist: 4 PT Drawing Press Operator Goals Half-Way Goals PT Half-Way Goals Time Frame: Dec 05, 2017 Transfers (B,C,W/C) (FIM): 6 Sit to Lying (QC): 6 Lying-Sitting on Side/Bed(QC): 6 Sit to Stand (QC): 6 Rollin Roll Left to Right (QC): 6 Chair/Pmt-hw-Ruvrf Xfer(QC): 6 Car Transfer (QC): 4 Does the Patient Walk: Yes Gait (FIM): 6 Gait distance (FIM): 3=150 ft Distance: 300 feet Walk 10 feet (QC): 6 Walk 10ft-Uneven Surface(QC): 6 Walk 50ft with 2 Turns (QC): 6 Walk 150 ft (QC): 6 Gait Level of Assist: 6 Gait Assistive Device: FWW Stairs (FIM): 2 # of Steps: 4 1 Step (curb) (QC): 4 4 Steps (QC): 4 12 Steps (QC): 88 Stairs Level Of Assist: 5 Picking up an Object (QC): 5 PT Plan Problem List Problem List: Activity Tolerance, Functional Strength, Safety, Balance, Gait, Transfer, Bed Mobility, ROM Treatment/Plan Treatment Plan: Continue Plan of Care Treatment Plan: Bed Mobility, Education, Functional Activity Amanda, Functional Strength, Group Therapy, Gait, Safety, Therapeutic Exercise, Transfers Treatment Duration: Dec 05, 2017 Frequency: At least 5 of 7 days/Wk (IRF) Estimated Hrs Per Day: 1.5 hours per day Patient and/or Family Agrees t: Yes Safety Risks/Education Patient Education: Gait Training, Transfer Techniques, Steps, Correct Positioning, Safety Issues Teaching Recipient: Patient Teaching Methods: Demonstration, Discussion Response to Teaching: Reinforcement Needed Time/GCodes Time In: 900 Time Out: 930 Total Billed Treatment Time: 30 Total Billed Treatment 1 visit FA 15' GT 15' JOHN MAYO PT Nov 24, 2017 09:33
--- NOTE | 2017-11-24 12:00 | Occupational Ther Daily Note ---
OT Current Status-Daily Note Subjective No pain reported. Appearance Pt. up in chair. Declines showering at first, but does agree eventually with prompting. Mental Status/Objective Patient Orientation: Person Functional [place] Measure 0=Not Assessed/NA 4=Minimal Assistance 1=Total Assistance 5=Supervision or Setup 2=Maximal Assistance 6=Modified [place] 3=Moderate Assistance 7=Complete [place] ADL-Treatment Functional [place] Measure 0=Not Assessed/NA 4=Minimal Assistance 1=Total Assistance 5=Supervision or Setup 2=Maximal Assistance 6=Modified [place] 3=Moderate Assistance 7=Complete IndependenceIRFPAI Quality Coding Scale 6 Independent with activity with or without an assistive device 5 Patient requires set up or clean up by helper. Patient completes activity by themselves 4 Supervision or touching assist (CGA). [place] provide cues , steadying assist 3 The helper provides less than half the effort to complete the activity 2 The helper provides more than half the effort to complete the activity 1 Dependent. The helper does all the effort to complete an activity 7 Patient refused to complete or attempt activity 9 The patient did not perform the activity before the current illness or injury 88 Not attempted due to Medical conditions or safety concerns Grooming (FIM): 5 (SBA at sink while standing to brush teeth and shave face.) Oral Hygiene (QC): 4 Bathing (FIM): 5 (SBA in shower. Pt. does require cues at times for safety, as he will stand to dry, put his leg up on bench, etc...) Shower/Bathe Self (QC): 4 Upper Body (FIM): 5 Upper Body Dressing (QC): 4 Lower Body Dressing (FIM): 5 (SBA to don slipper socks, brief, and pants. ) Lower Body Dressing (QC): 4 On/Off Footwear (QC): 4 Toileting (FIM): 5 Toileting Hygiene (QC): 4 Transfers (B, C, W/C) (FIM): 5 Toilet/Commode Transfer (FIM): 5 Toilet Transfer (QC): 4 Shower Transfer(FIM): 5 Other Treatment Pt. is able to complete all ADL tasks with SBA and cues for safety. Pt. will stand to wash/dry, and requires cues to sit, as this is safer for him. Pt. was able to complete all tasks in shower. Education OT Patient Education: Correct positioning, Modified ADL techniques, Progress toward Goal/Update tx plan, Purpose of tx/functional activities, Reviewed precautions, Rehab process, Transfer techniques Teaching Recipient: Patient Teaching Methods: Demonstration, Discussion Response to Teaching: Verbalize Understanding, Return Demonstration OT Short Term Goals Short Term Goals Time Frame: Nov 21, 2017 Eating(FIM): 5 Grooming(FIM): 5 Bathing(FIM): 5 Upper Body Dressing(FIM): 5 Lower Body Dressing(FIM): 5 Toileting(FIM): 5 Transfers (B,C,W/C) (FIM): 5 Toilet/Commode Transfer(FIM): 5 Shower Transfer(FIM): 5 Additional Short Term Goals: 1-Demonstrate ADL Tasks, 2-Verbalize Understanding , 3-ImproveStrength/Amanda 1=Demonstrate adherence to instructed precautions during ADL tasks. 2=Patient will verbalize/demonstrate understanding of assistive devices/ modifications for ADL. 3=Patient will improve strength/tolerance for activity to enable patient to perform ADL's. OT Longterm Goals Longterm Goals Time Frame: Dec 05, 2017 Eating (FIM): 6 Eating (QC): 6 Groomin Oral Hygiene (QC): 6 Bathing(FIM): 5 Shower/Bathe Self (QC): 5 Upper Body Dressing(FIM): 6 Upper Body Dressing (QC): 6 Lower Body Dressing(FIM): 6 Lower Body Dressing (QC): 6 On/Off Footwear (QC): 6 Toileting(FIM): 6 Toileting Hygiene (QC): 6 Transfers (B,C,W/C) (FIM): 6 Toilet/Commode Transfer(FIM): 6 Toilet/Commode Transfer (QC): 6 Shower Transfer(FIM): 5 Comprehension(FIM): 5 Expression (FIM): 5 Social Interaction(FIM): 5 Problem Solving(FIM): 4 Memory(FIM): 4 Additional Goals: 1-Demonstrate ADL Tasks, 2-Verbalize Understanding, 3- ImproveStrength/Amanda 1=Demonstrate adherence to instructed precautions during ADL tasks. 2=Patient will verbalize/demonstrate understanding of assistive devices/ modifications for ADL. 3=Patient will improve strength/tolerance for activity to enable patient to perform ADL's. OT Education/Plan Problem List/Assessment Assessment: Decreased Activ Tolerance, Decreased Safety Aware, Impaired I ADL's Discharge Recommendations Plan/Recommendations: Continue POC Therapy D/C Recommendations: Home w/ Family Support Treatment Plan/Plan of Care Treatment,Training & Education: Yes Patient would benefit from OT for education, treatment and training to promote independence in ADL's, mobility, safety and/or upper extremity function for ADL' s. Plan of Care: ADL Retraining, Functional Mobility, Group Exercise/Act as Ind, UE Funct Exercise/Act Treatment Duration: Dec 05, 2017 Frequency: At least 5 of 7 days/Wk (IRF) Estimated Hrs Per Day: 1.5 hours per day Agreement: Yes Rehab Potential: Good Time/GCodes Start Time: 10:15 Stop Time: 11:15 Total Time Billed (hr/min): 60 Billed Treatment Time 1, ADL x 4 BASIM LYNN OT Nov 24, 2017 12:00
--- NOTE | 2017-11-24 12:58 | Physical Therapy Daily Note ---
PT Daily Note-Current Subjective Agreeable to PT. No complaints. Pain Numeric Pain Scale: 0-No Pain Location: No Pain Reported Mental Status Patient Orientation: Person, Place, Time, Situation Transfers Functional [place] Measure 0=Not Assessed/NA 4=Minimal Assistance 1=Total Assistance 5=Supervision or Setup 2=Maximal Assistance 6=Modified [place] 3=Moderate Assistance 7=Complete IndependenceIRFPAI Quality Coding Scale 6 Independent with activity with or without an assistive device 5 Patient requires set up or clean up by helper. Patient completes activity by themselves 4 Supervision or touching assist (CGA). [place] provide cues , steadying assist 3 The helper provides less than half the effort to complete the activity 2 The helper provides more than half the effort to complete the activity 1 Dependent. The helper does all the effort to complete an activity 7 Patient refused to complete or attempt activity 9 The patient did not perform the activity before the current illness or injury 88 Not attempted due to Medical conditions or safety concerns Weight Bearing Right Lower Extremity: Right Full Weight Bearing Left Lower Extremity: Left Full Weight Bearing Treatments Pt ambulated x 150 ft x 4 reps with FWW with SBA. Seated B LE ther ex x 15 for AP, LAQ, hip flexion and hip abduct; sit to stand x 5 reps. Standing ther ex x 10 for calf raises, mini squats, and marching. Pt up in chair post treatmet with chair alarm activated. Assisted pt order lunch. Assessment Current Status: Good Progress No LOB noted with gait or tranfers. Pt does become SOA with activity but recovers quickly. O2 sats greater than 95% throughout treatment. PT Short Term Goals Short Term Goals Time Frame: Nov 21, 2017 Transfers (B,C,W/C) (FIM): 5 Gait (FIM): 5 Distance (FIM): 3=150 ft Gait Distance Comment: 300 feet Gait Level of Assist: 5 Gait Assistive Device: FWW Stairs (FIM): 2 # of Steps: 4 Stairs Level of Assist: 4 PT Freight Breaker Goals Custodial Goals PT Freight Breaker Goals Time Frame: Dec 05, 2017 Transfers (B,C,W/C) (FIM): 6 Sit to Lying (QC): 6 Lying-Sitting on Side/Bed(QC): 6 Sit to Stand (QC): 6 Rollin Roll Left to Right (QC): 6 Chair/Cya-gd-Knkfs Xfer(QC): 6 Car Transfer (QC): 4 Does the Patient Walk: Yes Gait (FIM): 6 Gait distance (FIM): 3=150 ft Distance: 300 feet Walk 10 feet (QC): 6 Walk 10ft-Uneven Surface(QC): 6 Walk 50ft with 2 Turns (QC): 6 Walk 150 ft (QC): 6 Gait Level of Assist: 6 Gait Assistive Device: FWW Stairs (FIM): 2 # of Steps: 4 1 Step (curb) (QC): 4 4 Steps (QC): 4 12 Steps (QC): 88 Stairs Level Of Assist: 5 Picking up an Object (QC): 5 PT Plan Problem List Problem List: Activity Tolerance, Functional Strength, Safety Treatment/Plan Treatment Plan: Continue Plan of Care Treatment Plan: Bed Mobility, Education, Functional Activity Amanda, Functional Strength, Group Therapy, Gait, Safety, Therapeutic Exercise, Transfers Treatment Duration: Dec 05, 2017 Frequency: At least 5 of 7 days/Wk (IRF) Estimated Hrs Per Day: 1.5 hours per day Patient and/or Family Agrees t: Yes Safety Risks/Education Patient Education: Safety Issues Teaching Recipient: Patient Teaching Methods: Discussion Response to Teaching: Reinforcement Needed Time/GCodes Time In: 1115 Time Out: 1200 Total Billed Treatment Time: 45 Total Billed Treatment visit EX 30 GT 15 PIYUSH FAYE PT Nov 24, 2017 12:58
[2017-11-24] MEDS: inSUlin Protamine/ASPart 70/30 1 UNIT/0.01 ML DOSE SC SCH ×2 (14:18→20:58)
--- NOTE | 2017-11-24 14:53 | Occupational Ther Daily Note ---
OT Current Status-Daily Note Subjective Pt. is up in chair. States that he "doesnt need" exercises. Mental Status/Objective Patient Orientation: Unable to Assess Functional [place] Measure 0=Not Assessed/NA 4=Minimal Assistance 1=Total Assistance 5=Supervision or Setup 2=Maximal Assistance 6=Modified [place] 3=Moderate Assistance 7=Complete [place] ADL-Treatment Functional [place] Measure 0=Not Assessed/NA 4=Minimal Assistance 1=Total Assistance 5=Supervision or Setup 2=Maximal Assistance 6=Modified [place] 3=Moderate Assistance 7=Complete IndependenceIRFPAI Quality Coding Scale 6 Independent with activity with or without an assistive device 5 Patient requires set up or clean up by helper. Patient completes activity by themselves 4 Supervision or touching assist (CGA). [place] provide cues , steadying assist 3 The helper provides less than half the effort to complete the activity 2 The helper provides more than half the effort to complete the activity 1 Dependent. The helper does all the effort to complete an activity 7 Patient refused to complete or attempt activity 9 The patient did not perform the activity before the current illness or injury 88 Not attempted due to Medical conditions or safety concerns Toileting (FIM): 5 Toileting Hygiene (QC): 5 Transfers (B, C, W/C) (FIM): 5 (Sit-stand and ambulation to bathroom.) Toilet/Commode Transfer (FIM): 5 Other Treatment Pt. is in chair. Pt. states that he is angry. States that he "was deceived." OT questions him and attempts to comfort him. Pt. is angry because he was supposed to go home today, but he is not discharging as they are attempting to find if he has a UTI or not. OT explains this to pt. Pt. is still angry but then apologizes to OT and states, "I'm not angry at you." OT asks pt. if he needs to go to bathroom. OT ambulates pt. to bathroom. Pt. is able to use toilet with SBA. Notified nursing of all of pt's concerns. Education OT Patient Education: Correct positioning, Modified ADL techniques, Progress toward Goal/Update tx plan, Purpose of tx/functional activities, Reviewed precautions, Rehab process, Transfer techniques Teaching Recipient: Patient Teaching Methods: Demonstration, Discussion Response to Teaching: Verbalize Understanding, Return Demonstration OT Short Term Goals Short Term Goals Time Frame: Nov 21, 2017 Eating(FIM): 5 Grooming(FIM): 5 Bathing(FIM): 5 Upper Body Dressing(FIM): 5 Lower Body Dressing(FIM): 5 Toileting(FIM): 5 Transfers (B,C,W/C) (FIM): 5 Toilet/Commode Transfer(FIM): 5 Shower Transfer(FIM): 5 Additional Short Term Goals: 1-Demonstrate ADL Tasks, 2-Verbalize Understanding , 3-ImproveStrength/Amanda 1=Demonstrate adherence to instructed precautions during ADL tasks. 2=Patient will verbalize/demonstrate understanding of assistive devices/ modifications for ADL. 3=Patient will improve strength/tolerance for activity to enable patient to perform ADL's. OT Spindle Plumber Goals Spindle Plumber Goals Time Frame: Dec 05, 2017 Eating (FIM): 6 Eating (QC): 6 Groomin Oral Hygiene (QC): 6 Bathing(FIM): 5 Shower/Bathe Self (QC): 5 Upper Body Dressing(FIM): 6 Upper Body Dressing (QC): 6 Lower Body Dressing(FIM): 6 Lower Body Dressing (QC): 6 On/Off Footwear (QC): 6 Toileting(FIM): 6 Toileting Hygiene (QC): 6 Transfers (B,C,W/C) (FIM): 6 Toilet/Commode Transfer(FIM): 6 Toilet/Commode Transfer (QC): 6 Shower Transfer(FIM): 5 Comprehension(FIM): 5 Expression (FIM): 5 Social Interaction(FIM): 5 Problem Solving(FIM): 4 Memory(FIM): 4 Additional Goals: 1-Demonstrate ADL Tasks, 2-Verbalize Understanding, 3- ImproveStrength/Amanda 1=Demonstrate adherence to instructed precautions during ADL tasks. 2=Patient will verbalize/demonstrate understanding of assistive devices/ modifications for ADL. 3=Patient will improve strength/tolerance for activity to enable patient to perform ADL's. OT Education/Plan Problem List/Assessment Assessment: Decreased Activ Tolerance, Decreased Safety Aware, Impaired Cognition, Impaired I ADL's, Impaired Self-Care Skills Discharge Recommendations Plan/Recommendations: Continue POC Therapy D/C Recommendations: Home w/ Family Support Treatment Plan/Plan of Care Treatment,Training & Education: Yes Patient would benefit from OT for education, treatment and training to promote independence in ADL's, mobility, safety and/or upper extremity function for ADL' s. Plan of Care: ADL Retraining, Functional Mobility, Group Exercise/Act as Ind, UE Funct Exercise/Act Treatment Duration: Dec 05, 2017 Frequency: At least 5 of 7 days/Wk (IRF) Estimated Hrs Per Day: 1.5 hours per day Agreement: Yes Rehab Potential: Good Time/GCodes Start Time: 14:00 Stop Time: 14:20 Total Time Billed (hr/min): 20 Billed Treatment Time 1, ADL BASIM LYNN OT Nov 24, 2017 14:53
--- NOTE | 2017-11-24 15:47 | Speech Therapy Daily Note ---
Speech Daily Progress Note Subjective Date Seen by Provider: Nov 24, 2017 Time Seen by Provider: 08:30 The patient was seated upright in the recliner upon entrance. The patient greeted the clinician and was agreeable to participation in the cognitive treatment session. To note, immediately prior to the session, the patient was found up ad-lex in his room (the patient has a bed alarm and chair alarm and must ask for help to transfer). When discussed with the patient, he stated, "I know, I know." The patient has verbalized increased confusion, stating "I feel remarkably good in comparison to last week but I am feeling nuts." Objective Safety Precautions: The patient's in-room safety precautions were reviewed in depth on this date. The patient stated he knows he needs to use his call light but "sometimes it's unplugged." The patient was unable to provide additional details of this or recall why he did not use his call light at a later time. Additionally, the patient was unable to state the necessity for his walker or why the bed alarm was in place. The patient states, "I know, I know" but appears to be in denial of confusion level. Functional Recall: The patient was unable to recall the events of the morning or the weekend. The patient stated he thought he was transferred to a farm or a mission of some sort. The patient stated, "But once the sun came out and could look out my window and see all the buildings, I knew I wasn't at a farm." Additionally, the patient was unable to state where his pants were, as he was not dressed when the clinician entered the room. The patient located the bag of his pants, however, packed and repacked the bag consistently stating he didn't know which were clean. To note, the patient has demonstrated a reduction in clarity in comparison to his previous session. Assessment Assessment Current Status: Poor Progress Treatment Plan Continue Plan of Care Communication Comprehension: 3 Expression: 4 Social Cognition Social Interaction: 4 Problem Solvin Memory: 3 Speech Short Term Goals Short Term Goals Short Term Goals 1. The patient will recall two functional memory strategies for use at home with mild clinician prompting. 2. The patient will recall three items immediately and following a five minute delay. 3. The patient will display 80% accuracy with safety problem solving and sequencing of ADL tasks. Time Frame-STG: One Week Speech Airplane Captain Goals Assisted Goals 1. The patient will demonstrate improved cognitive linguistic skills for increased safety and function with ADL's in the least restrictive setting. Time Frame: Two Weeks Comprehension: 5 Expression: 5 Social Interaction: 5 Problem Solvin Memory: 4 Speech-Plan Treatment Plan Speech Therapy Treatment Plan: Continue Plan of Care Continue skilled speech pathology to target functional memory and orientation strategies. Treatment Duration: Nov 28, 2017 Frequency: Modified Program (IRF) (4 to 5 times per week.) Estimated Hrs Per Day: .5 hour per day Rehab Potential: Good Safety Risks/Education Teaching Recipient: Patient Teaching Methods: Demonstration, Discussion Response to Teaching: Reinforcement Needed Education Topics Provided: Orientation Strategies Time Speech Therapy Time In: 08:30 Speech Therapy Time Out: 09:00 Total Billed Time: 30 Billed Treatment Time 1, SOL WILSON Nov 24, 2017 15:47
[2017-11-24] MEDS: warFARin 7.5 MG (COUMADIN) TAB PO SCH (17:10)
--- NOTE | 2017-11-24 17:43 | Progress Note (SOAP) ---
Subjective Subjective Date Seen by Provider: Nov 24, 2017 Time Seen by Provider: 08:45 82 yo M Increasing confusion over the weekend- Pt complaining of dysuria now upon urinating. Urine culture growing pseudomonas, proteus, e.coli- he has history of multi-drug resistance UTIs. Review of Systems General: No Chills, No Night Sweats HEENT: No Head Aches, No Visual Changes Pulmonary: No Dyspnea, No Cough Cardiovascular: No: Chest Pain, Palpitations, Orthopnea Gastrointestinal: No: Nausea, Vomiting, Abdominal Pain Genitourinary: Dysuria, No Frequency Musculoskeletal: No: neck pain, shoulder pain Neurological: Weakness, Confusion Objective Exam Vital Signs Vital Signs Date Time Temp Pulse Resp B/P (MAP) Pulse Ox O2 Delivery O2 Flow Rate FiO2 11/24/17 14:13 Nasal Cannula 2.00 11/24/17 09:00 Room Air 11/24/17 06:30 97.6 83 18 171/80 (110) 97 Room Air 11/23/17 20:10 Room Air 11/23/17 17:57 97.1 65 16 145/78 (100) 96 Room Air I & O 11/24/17 07:00 Intake Total 1470 ml Balance 1470 ml General Appearance: No Apparent Distress, WD/WN HEENT: PERRL/EOMI Neck: Full Range of Motion, Normal Inspection, Non Tender Respiratory: Chest Non Tender, Lungs Clear, Normal Breath Sounds, No Accessory Muscle Use, No Respiratory Distress Cardiovascular: Regular Rate, Rhythm Gastrointestinal: Normal Bowel Sounds, Non Tender, Soft Rectal: Deferred Back: No CVA Tenderness, No Vertebral Tenderness Extremity: No Calf Tenderness, Other (knees are painful) Neurologic/Psychiatric: Alert, Other (confused) Skin: Warm/Dry Results Lab Laboratory Tests 11/23/17 20:58: Glucometer 199H 11/24/17 05:05: Prothrombin Time 21.9H, INR Comment 1.9H 11/24/17 05:11: Glucometer 78 11/24/17 17:05: Glucometer 166H Microbiology 11/22/17 Urine Culture - Preliminary, Resulted Pseudomonas aeruginosa Proteus mirabilis Gram Negative Doug Assessment/Plan Assessment/Plan Admission Dx as above Assessment and Plan (N39.0) Urinary tract infection- completed doxycycline 11/14/17 -recurrent UTI urine culture 11/22/17 pseudomonas, proteus, ecoli started meropenem- 11/24/2017- R53.1 Weakness/deconditioning- inpatient rehab- doing well. discharge to home on hold given recurrent UTI. 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 (G47.33) Obstructive sleep apnea - home cpap (N18.3) Chronic kidney disease, stage 3 (moderate) --monitor Cr. currently at baseline Cr- fluid hydration. chronic wound- bottom of foot- wound care consult- completed cefdinir and linezolid (J44.9) Chronic obstructive pulmonary disease- continue oxygen prn, oxygen with ambulating. (I48.91) atrial fibrillation- restarted warfarin , monitoring inr (I15.9) Secondary hypertension- continue current regimen. (K21.9) Gastro-esophageal reflux disease without esophagitis Chronic (F03.90) dementia without behavioral disturbance- monitor- worsened by infections- Dispo: Continue Inpatient rehab - Discharge post-poned due to increased confusion- due to UTI. Culture and antibiotic profile- pending- likely will need IV antibiotics at home- hopefully home health can administer. -culture so far for proteus and pseudomonas can be treated with cipro and cefdinir- awaiting ecoli results- may need the meropenem. Problems: Admission Dx as above Clinical Quality Measures DVT/VTE Risk/Contraindication: Risk Factor Score Per Nursin RFS Level Per Nursing on Admit: 4+=Very High RUBEN SANCHEZ MD Nov 24, 2017 17:43
[2017-11-24 18:00] VITALS: BP 167/80
[2017-11-24] MEDS: MEROPENEM 500 MG in NS (IVPB) 100 ML IV SCH (19:36)
--- NOTE | 2017-11-24 20:23 | PM & R (SOAP) Progress Note ---
Subjective Time Seen by Provider: 19:30 Subjective/Events-last exam Patient was seen in his room this evening Knows that it is October Patient c/o dysuria and called by RN over weekende re patients spouses concern re possible rccurrent confusion which can cause increased confusion Repaat U/A and C& S abnormal Discussed case wit PCP by Phone IV antibiotic started this evening .Patient SBA for transfers and discharge was set for today --now on hold. Review of Systems Genitourinary: Dysuria Objective Exam Last Set of Vital Signs Vital Signs Date Time Temp Pulse Resp B/P (MAP) Pulse Ox O2 Delivery O2 Flow Rate FiO2 11/24/17 18:00 97.6 80 18 167/80 (109) 99 Room Air 11/24/17 14:13 2.00 Capillary Refill : I&O Intake and Output 11/24/17 00:00 Intake Total 1170 ml Balance 1170 ml Intake Oral 1170 ml # Voids 11 General: Alert, Oriented X3, No Acute Distress HEENT: Atraumatic, PERRLA, EOMI, Mucous Memb Moist/[place] Neck: Supple, No JVD Lungs: Clear to Auscultation Heart: Regular Rate Abdomen: Normal Bowel Sounds, Soft, No Tenderness Extremities: Other (trace edeam) Skin: Other (Diabetic ulcer left heel and rt fourth toe) Neuro: Other (Generalized weakness with impaired sensation in feet) Results Lab Laboratory Tests 11/22/17 04:25: Glucometer 101 11/22/17 05:22: White Blood Count 12.0H, Red Blood Count 4.27L, Hemoglobin 13.0L, Hematocrit 36L , Mean Corpuscular Volume 85, Mean Corpuscular Hemoglobin 30, Mean Corpuscular Hemoglobin Concent 36, Red Cell Distribution Width 13.8, Platelet Count 99L, Mean Platelet Volume 10.7H, Neutrophils (%) (Auto) 70, Lymphocytes (%) (Auto) 18 , Monocytes (%) (Auto) 10, Eosinophils (%) (Auto) 2, Basophils (%) (Auto) 0, Neutrophils # (Auto) 8.4H, Lymphocytes # (Auto) 2.2, Monocytes # (Auto) 1.2H, Eosinophils # (Auto) 0.2, Basophils # (Auto) 0.0, Prothrombin Time 25.0H, INR Comment 2.3H 11/22/17 15:33: Glucometer 223H 2/24/18 20:40: Glucometer 183H 11/22/17 23:54: Urine Color YELLOW, Urine Clarity CLEAR, Urine pH 6.5, Urine Specific [place] 1.015L, Urine Protein 4+, Urine Glucose (UA) 2+H, Urine Ketones NEGATIVE, Urine Nitrite NEGATIVE, Urine Bilirubin NEGATIVE, Urine Urobilinogen NORMAL, Urine Leukocyte Esterase 2+H, Urine RBC (Auto) 2+H, Urine RBC 5-10H, Urine WBC 10-25H , Urine Squamous Epithelial Cells 10-25H, Urine Crystals NONE, Urine Bacteria FEWH, Urine Casts NONE, Urine Mucus NEGATIVE, Urine Culture Indicated YES 11/23/17 05:57: Glucometer 107 11/23/17 15:49: Glucometer 227H 11/23/17 20:58: Glucometer 199H 11/24/17 05:05: Prothrombin Time 21.9H, INR Comment 1.9H 11/24/17 05:11: Glucometer 78 11/24/17 17:05: Glucometer 166H Microbiology 11/22/17 Urine Culture - Preliminary, Resulted Pseudomonas aeruginosa Proteus mirabilis Gram Negative Doug Assessment/Plan Assessment 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
[2017-11-24] MEDS ORDERED: MEROPENEM 1,000 MG in NS (IVPB) 100 ML IV SCH (22:00)
[2017-11-25] MEDS: MEROPENEM 500 MG in NS (IVPB) 100 ML IV SCH ×3 (02:51→17:32)
[2017-11-25 05:04] VITALS: BP 133/85
[2017-11-25] MEDS: OMEGA 3 (FISH OIL) 1000 MG CAP PO SCH (06:36)
[2017-11-25] MEDS: KCL 20 MEQ TAB (K-DUR) PO SCH ×2 (06:36→17:32)
[2017-11-25] MEDS: FUROSEMIDE 40 MG (LASIX) TAB PO SCH ×2 (06:36→13:25)
[2017-11-25] MEDS: FAMOTIDINE 20 MG (PEPCID) TABLET PO SCH (08:07)
[2017-11-25] MEDS: LOSARTAN 25 MG (COZAAR) TAB PO SCH (08:07)
[2017-11-25] MEDS: DIGOXIN 0.125 MG (LANOXIN) TAB PO SCH (08:07)
[2017-11-25] MEDS: ASPIRIN E.C. 81 MG (ECOTRIN) TAB PO SCH (08:07)
[2017-11-25] MEDS: ONDANSETRON 4 MG (ZOFRAN) ORAL DISSOLVE TAB PO SCH ×2 (08:07→21:32)
[2017-11-25] MEDS: CARVEDILOL 12.5 MG (COREG) TABLET PO SCH ×2 (08:07→21:33)
[2017-11-25] MEDS: CLOPIDOGREL 75 MG (PLAVIX) TABLET PO SCH (08:07)
[2017-11-25] MEDS: FERROUS SULF 325 MG (IRON) TAB PO SCH ×2 (08:07→21:32)
[2017-11-25] MEDS: TROSPIUM 20 MG (SANCTURA) TAB PO SCH (08:07)
[2017-11-25] MEDS: LOTEPREDNOL OP SCH ×3 (08:08→21:32)
[2017-11-25] MEDS: MUPIROCIN 2% OINT 22 GM (BACTROBAN) TUBE TOP SCH ×2 (08:08→21:37)
[2017-11-25] MEDS: NEO/POLY/DEX (MAXITROL) OPHTH OINT 3.5 GM OP SCH (08:08)
[2017-11-25 08:29] LABS: BASOPHILS % (AUTO) 0 % (0-10); EOSINOPHILS # (AUTO) 0.2 10^3/uL (0.0-0.3); EOSINOPHILS % (AUTO) 1 % (0-10); HEMATOCRIT 36 % (40-54); HEMOGLOBIN 12.8 G/DL (13.3-17.7); LYMPHOCYTES # (AUTO) 1.5 X 10^3 (1.0-4.0); LYMPHOCYTES % (AUTO) 11 % (12-44); MEAN CORPUSCULAR HEMOGLOBIN 31 PG (25-34); MEAN CORPUSCULAR HGB CONC 36 G/DL (32-36); MEAN CORPUSCULAR VOLUME 87 FL (80-99); MEAN PLATELET VOLUME 11.1 FL (7.4-10.4); MONOCYTES # (AUTO) 1.6 X 10^3 (0.0-1.0); MONOCYTES % (AUTO) 12 % (0-12); NEUTROPHILS # (AUTO) 10.5 X 10^3 (1.8-7.8); NEUTROPHILS % (AUTO) 76 % (42-75); PLATELET COUNT 115 10^3/uL (130-400); RED BLOOD COUNT 4.16 10^6/uL (4.35-5.85); RED CELL DISTRIBUTION WIDTH 14.2 % (10.0-14.5); WHITE BLOOD COUNT 13.8 10^3/uL (4.3-11.0)
[2017-11-25 08:47] LABS: CREATININE SERUM 1.74 MG/DL (0.60-1.30); PHOSPHORUS 3.1 MG/DL (2.3-4.7); POTASSIUM 4.3 MMOL/L (3.6-5.0)
--- NOTE | 2017-11-25 09:05 | Progress Note (SOAP) ---
Subjective Subjective Date Seen by Provider: Nov 25, 2017 Time Seen by Provider: 09:03 82 yo M Kidney function has worsened with recurrent urinary tract infection- Cultures with sensitivities almost complete. Awaiting E.coli results. Pt is agreeable to staying one more day in hopes his kidney function improves and his UTI can be treated with po antibiotics. Review of Systems General: No Chills, No Night Sweats HEENT: No Head Aches, No Visual Changes Pulmonary: No Dyspnea, No Cough Cardiovascular: No: Chest Pain, Palpitations, Orthopnea Gastrointestinal: No: Nausea, Vomiting, Abdominal Pain Genitourinary: Dysuria, No Frequency Musculoskeletal: No: neck pain, shoulder pain Neurological: Weakness, Confusion Objective Exam Vital Signs Vital Signs - First Documented 11/19/17 11/24/17 04:46 14:13 Temp 97.6 Pulse 83 Resp 22 B/P (MAP) 170/88 (115) Pulse Ox 99 O2 Delivery NIV CPAP O2 Flow Rate 2.00 Capillary Refill : General Appearance: No Apparent Distress, WD/WN HEENT: PERRL/EOMI Neck: Full Range of Motion, Normal Inspection, Non Tender Respiratory: Chest Non Tender, Lungs Clear, Normal Breath Sounds, No Accessory Muscle Use, No Respiratory Distress Cardiovascular: Regular Rate, Rhythm Gastrointestinal: Normal Bowel Sounds, Non Tender, Soft Rectal: Deferred Back: No CVA Tenderness, No Vertebral Tenderness Extremity: No Calf Tenderness, Other (knees are painful) Neurologic/Psychiatric: Alert, Other (confused) Skin: Warm/Dry Results Lab Laboratory Tests 11/24/17 17:05: Glucometer 166H 11/24/17 20:57: Glucometer 132H 11/25/17 04:50: Glucometer 91 11/25/17 08:25: White Blood Count 13.8H, Red Blood Count 4.16L, Hemoglobin 12.8L, Hematocrit 36L , Mean Corpuscular Volume 87, Mean Corpuscular Hemoglobin 31, Mean Corpuscular Hemoglobin Concent 36, Red Cell Distribution Width 14.2, Platelet Count 115L, Mean Platelet Volume 11.1H, Neutrophils (%) (Auto) 76H, Lymphocytes (%) (Auto) 11L, Monocytes (%) (Auto) 12, Eosinophils (%) (Auto) 1, Basophils (%) (Auto) 0, Neutrophils # (Auto) 10.5H, Lymphocytes # (Auto) 1.5, Monocytes # (Auto) 1.6H, Eosinophils # (Auto) 0.2, Basophils # (Auto) 0.0, Sodium Level 135, Potassium Level 4.3, Chloride Level 105, Carbon Dioxide Level 24, Anion Gap 6, Blood Urea Nitrogen 30H, Creatinine 1.74H, Estimat Glomerular Filtration Rate 38, BUN/ Creatinine Ratio 17, Glucose Level 146H, Calcium Level 9.0, Phosphorus Level 3.1 , Albumin 3.0L Microbiology 11/22/17 Urine Culture - Preliminary, Resulted Pseudomonas aeruginosa Proteus mirabilis Escherichia coli Assessment/Plan Assessment/Plan Admission Dx as above Assessment and Plan (N39.0) Urinary tract infection- completed doxycycline 11/14/17 -recurrent UTI urine culture 11/22/17 pseudomonas, proteus, ecoli started meropenem- 11/24/2017- R53.1 Weakness/deconditioning- inpatient rehab- doing well. discharge to home on hold given recurrent UTI. 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 (G47.33) Obstructive sleep apnea - home cpap (N18.3) Chronic kidney disease, stage 3 (moderate) --monitor Cr. currently at baseline Cr- fluid hydration. chronic wound- bottom of foot- wound care consult- completed cefdinir and linezolid (J44.9) Chronic obstructive pulmonary disease- continue oxygen prn, oxygen with ambulating. (I48.91) atrial fibrillation- restarted warfarin , monitoring inr (I15.9) Secondary hypertension- continue current regimen. (K21.9) Gastro-esophageal reflux disease without esophagitis Chronic (F03.90) dementia without behavioral disturbance- monitor- worsened by infections- Dispo: Continue Inpatient rehab - Discharge post-poned due to increased confusion- due to UTI. Culture and antibiotic profile- pending- possibly will need IV antibiotics at home- hopefully home health can administer. -culture so far for proteus and pseudomonas can be treated with cipro and cefdinir- awaiting ecoli results- may need the meropenem. Problems: Admission Dx as above Clinical Quality Measures DVT/VTE Risk/Contraindication: Risk Factor Score Per Nursin RFS Level Per Nursing on Admit: 4+=Very High RUBEN SANCHEZ MD Nov 25, 2017 09:05
[2017-11-25] MEDS ORDERED: NS (IVPB) 250 ML IV ONE (09:15)
--- NOTE | 2017-11-25 09:31 | PM & R (SOAP) Progress Note ---
Subjective Time Seen by Provider: 08:10 Subjective/Events-last exam Patient was seen in his room this AM Patient SBA for gait with WW.Discussed case with PT,RN and DR Alexander.PCP arranging for HHC with IV antibiotics for treatment of recurrent UTI with possible discharge for tomorrow Objective Exam Last Set of Vital Signs Vital Signs Date Time Temp Pulse Resp B/P (MAP) Pulse Ox O2 Delivery O2 Flow Rate FiO2 11/25/17 05:04 97.2 75 20 133/85 (101) 97 NIV CPAP 11/24/17 14:13 2.00 Capillary Refill : I&O Intake and Output 11/25/17 00:00 Intake Total 1300 ml Balance 1300 ml Intake Oral 1200 ml IV Total 100 ml # Voids 9 # Bowel Movements 1 General: Alert, Oriented X3, No Acute Distress HEENT: Atraumatic, PERRLA, EOMI, Mucous Memb Moist/[place] Neck: Supple, No JVD Lungs: Clear to Auscultation Heart: Regular Rate Abdomen: Normal Bowel Sounds, Soft, No Tenderness Extremities: Other (trace edeam) Skin: Other (Diabetic ulcer left heel and rt fourth toe) Neuro: Other (Generalized weakness with impaired sensation in feet) Results Lab Laboratory Tests 11/22/17 15:33: Glucometer 223H 11/22/17 20:40: Glucometer 183H 11/22/17 23:54: Urine Color YELLOW, Urine Clarity CLEAR, Urine pH 6.5, Urine Specific [place] 1.015L, Urine Protein 4+, Urine Glucose (UA) 2+H, Urine Ketones NEGATIVE, Urine Nitrite NEGATIVE, Urine Bilirubin NEGATIVE, Urine Urobilinogen NORMAL, Urine Leukocyte Esterase 2+H, Urine RBC (Auto) 2+H, Urine RBC 5-10H, Urine WBC 10-25H , Urine Squamous Epithelial Cells 10-25H, Urine Crystals NONE, Urine Bacteria FEWH, Urine Casts NONE, Urine Mucus NEGATIVE, Urine Culture Indicated YES 11/23/17 05:57: Glucometer 107 11/23/17 15:49: Glucometer 227H 11/23/17 20:58: Glucometer 199H 11/24/17 05:05: Prothrombin Time 21.9H, INR Comment 1.9H 11/24/17 05:11: Glucometer 78 11/24/17 17:05: Glucometer 166H 11/24/17 20:57: Glucometer 132H 11/25/17 04:50: Glucometer 91 11/25/17 08:25: White Blood Count 13.8H, Red Blood Count 4.16L, Hemoglobin 12.8L, Hematocrit 36L , Mean Corpuscular Volume 87, Mean Corpuscular Hemoglobin 31, Mean Corpuscular Hemoglobin Concent 36, Red Cell Distribution Width 14.2, Platelet Count 115L, Mean Platelet Volume 11.1H, Neutrophils (%) (Auto) 76H, Lymphocytes (%) (Auto) 11L, Monocytes (%) (Auto) 12, Eosinophils (%) (Auto) 1, Basophils (%) (Auto) 0, Neutrophils # (Auto) 10.5H, Lymphocytes # (Auto) 1.5, Monocytes # (Auto) 1.6H, Eosinophils # (Auto) 0.2, Basophils # (Auto) 0.0, Sodium Level 135, Potassium Level 4.3, Chloride Level 105, Carbon Dioxide Level 24, Anion Gap 6, Blood Urea Nitrogen 30H, Creatinine 1.74H, Estimat Glomerular Filtration Rate 38, BUN/ Creatinine Ratio 17, Glucose Level 146H, Calcium Level 9.0, Phosphorus Level 3.1 , Albumin 3.0L Microbiology 11/22/17 Urine Culture - Preliminary, Resulted Pseudomonas aeruginosa Proteus mirabilis Escherichia coli Assessment/Plan Assessment 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 Peripheral neuropathy Recurrent UTI on IV antibiotic and with contact precautions Skin abrasions both knees secondary to falls Type 2 DM VIPIN CKD stage 3 Mild dementia COPD GERD without espohagitis A fiB chronically anticoagulated with coumadin Supratherapeutic INR-with coumadin on hold 4.8 on 11-20-17-now resaumed Plan Continue PT/OT/Wound care F/U with DR Alexander PCP and Bud dyson [id number] INR Current labs noted-will recheck Discharge on hold at this time due to recurrent UTI-probable discharge tomorrow to home with HHC and spouse with IV antibiotics Will f/u with Team/SW and PCP TRINITY COLBERT MD Nov 25, 2017 09:31
--- NOTE | 2017-11-25 09:54 | Physical Therapy Daily Note ---
PT Daily Note-Current Subjective Pt sitting in recliner upon arrival. Pt agrees to PT. Dr Alexander arrives shortly after start of tx to check on & visit with pt. Pain Location: No Pain Reported Mental Status Patient Orientation: Person, Place Transfers Functional Homeworth Measure 0=Not Assessed/NA 4=Minimal Assistance 1=Total Assistance 5=Supervision or Setup 2=Maximal Assistance 6=Modified Homeworth 3=Moderate Assistance 7=Complete IndependenceIRFPAI Quality Coding Scale 6 Independent with activity with or without an assistive device 5 Patient requires set up or clean up by helper. Patient completes activity by themselves 4 Supervision or touching assist (CGA). [place] provide cues , steadying assist 3 The helper provides less than half the effort to complete the activity 2 The helper provides more than half the effort to complete the activity 1 Dependent. The helper does all the effort to complete an activity 7 Patient refused to complete or attempt activity 9 The patient did not perform the activity before the current illness or injury 88 Not attempted due to Medical conditions or safety concerns Scootin Sit to/from Stand: 5 Sit to Stand (QC): 5 Weight Bearing Right Lower Extremity: Right Full Weight Bearing Left Lower Extremity: Left Full Weight Bearing Gait Training Does the Patient Walk?: Yes Distance (FIM): 1=687-29 ft Distance: 50' Walk 10 feet (QC): 5 Walk 50 ft with 2 Turns(QC): 5 Gait Level of Assist: 5 Gait Persons Needed: 1 Gait Assistive Device: FWW Pt walks with very slow xochitl. Pt gets SOA easily. Wheelchair Training Does the Pt Use a Wheelchair?: No Exercises Seated Therapy Exercises: Ankle pumps, Long arc quads, Hip flexion, Kicking activity, Hip abd/add Seated Reps: [address] Alexander to discuss fluid on body but isn't urinating much even with Lactics. Pt also discusses why pt is still on ARU. Pt is receiving meds to help with UTI and waiting for results on Ecoli. Pt completes Seated Ex in recliner then transfers to standing using FWW at SBA. Pt uses restroom then returns to recliner to rest. Pt has all needs met at end of tx. Assessment Current Status: Good Progress Pt fatigues easily and gets SOA with ambulating & exercise. PT Short Term Goals Short Term Goals Time Frame: Nov 21, 2017 Transfers (B,C,W/C) (FIM): 5 Gait (FIM): 5 Distance (FIM): 3=150 ft Gait Distance Comment: 300 feet Gait Level of Assist: 5 Gait Assistive Device: FWW Stairs (FIM): 2 # of Steps: 4 Stairs Level of Assist: 4 PT Insights Analyst Goals Insights Analyst Goals PT Chcf Goals Time Frame: Dec 05, 2017 Transfers (B,C,W/C) (FIM): 6 Sit to Lying (QC): 6 Lying-Sitting on Side/Bed(QC): 6 Sit to Stand (QC): 6 Rollin Roll Left to Right (QC): 6 Chair/Fud-qs-Clkqs Xfer(QC): 6 Car Transfer (QC): 4 Does the Patient Walk: Yes Gait (FIM): 6 Gait distance (FIM): 3=150 ft Distance: 300 feet Walk 10 feet (QC): 6 Walk 10ft-Uneven Surface(QC): 6 Walk 50ft with 2 Turns (QC): 6 Walk 150 ft (QC): 6 Gait Level of Assist: 6 Gait Assistive Device: FWW Stairs (FIM): 2 # of Steps: 4 1 Step (curb) (QC): 4 4 Steps (QC): 4 12 Steps (QC): 88 Stairs Level Of Assist: 5 Picking up an Object (QC): 5 PT Plan Problem List Problem List: Activity Tolerance, Functional Strength, Safety, Balance, Gait Treatment/Plan Treatment Plan: Continue Plan of Care Treatment Plan: Bed Mobility, Education, Functional Activity Amanda, Functional Strength, Group Therapy, Gait, Safety, Therapeutic Exercise, Transfers Treatment Duration: Dec 05, 2017 Frequency: At least 5 of 7 days/Wk (IRF) Estimated Hrs Per Day: 1.5 hours per day Patient and/or Family Agrees t: Yes Safety Risks/Education Patient Education: Gait Training, Transfer Techniques, Correct Positioning, Safety Issues Teaching Recipient: Patient Teaching Methods: Discussion Response to Teaching: Verbalize Understanding Time/GCodes Time In: 900 Time Out: 945 Total Billed Treatment Time: 45 Total Billed Treatment 1, EX (15m), FA x2 (30m) TYRONE OLMOS YOUNG ADULT LIBRARIAN Nov 25, 2017 09:54
[2017-11-25] MEDS: NS IV 1000 ML 1,000 ML IV SCH ×2 (09:55→21:32)
--- NOTE | 2017-11-25 10:21 | Speech Therapy Daily Note ---
Speech Daily Progress Note Subjective Date Seen by Provider: Nov 25, 2017 Time Seen by Provider: 08:15 The patient was seated in recliner upon entrance. The patient greeted the clinician appropriately and was agreeable to participation in the cognitive treatment session. Objective To note, the patient appears less confused on this date and is aware of his increased lucidness. Safety Problem Solving: The patient was provided pictures which depicted specific safety issues in his home environment. The patient was asked to identify the safety issue and provide an appropriate solution. The patient demonstrated good accuracy with this task with mild clinician verbal prompting. Orientation: The patient is independently oriented to self, location, month, year, and day of week. Assessment Assessment Current Status: Fair Progress Treatment Plan Continue Plan of Care Communication Comprehension: 3 Expression: 4 Social Cognition Social Interaction: 4 Problem Solvin Memory: 3 Speech Short Term Goals Short Term Goals Short Term Goals 1. The patient will recall two functional memory strategies for use at home with mild clinician prompting. 2. The patient will recall three items immediately and following a five minute delay. 3. The patient will display 80% accuracy with safety problem solving and sequencing of ADL tasks. Time Frame-STG: One Week Speech Scabbler Goals Nursing Home Goals 1. The patient will demonstrate improved cognitive linguistic skills for increased safety and function with ADL's in the least restrictive setting. Time Frame: Two Weeks Comprehension: 5 Expression: 5 Social Interaction: 5 Problem Solvin Memory: 4 Speech-Plan Treatment Plan Speech Therapy Treatment Plan: Continue Plan of Care Continue skilled speech pathology to target functional memory and problem solving strategies. Treatment Duration: Nov 28, 2017 Frequency: Modified Program (IRF) (4 to 5 times per week.) Estimated Hrs Per Day: .5 hour per day Rehab Potential: Good Safety Risks/Education Teaching Recipient: Patient Teaching Methods: Discussion Response to Teaching: Verbalize Understanding, Reinforcement Needed Education Topics Provided: Problem Solving (safety) Time Speech Therapy Time In: 08:15 Speech Therapy Time Out: 08:45 Total Billed Time: 30 Billed Treatment Time VALENTINA Christopher [facility] Nov 25, 2017 10:21
--- NOTE | 2017-11-25 11:34 | Occupational Ther Daily Note ---
OT Current Status-Daily Note Subjective No pain reported. Appearance Pt. up in chair with IV going. Declines showering. Pt. already dressed. Does agree to work with OT. Mental Status/Objective Patient Orientation: Person Functional [place] Measure 0=Not Assessed/NA 4=Minimal Assistance 1=Total Assistance 5=Supervision or Setup 2=Maximal Assistance 6=Modified [place] 3=Moderate Assistance 7=Complete [place] ADL-Treatment Functional [place] Measure 0=Not Assessed/NA 4=Minimal Assistance 1=Total Assistance 5=Supervision or Setup 2=Maximal Assistance 6=Modified [place] 3=Moderate Assistance 7=Complete IndependenceIRFPAI Quality Coding Scale 6 Independent with activity with or without an assistive device 5 Patient requires set up or clean up by helper. Patient completes activity by themselves 4 Supervision or touching assist (CGA). [place] provide cues , steadying assist 3 The helper provides less than half the effort to complete the activity 2 The helper provides more than half the effort to complete the activity 1 Dependent. The helper does all the effort to complete an activity 7 Patient refused to complete or attempt activity 9 The patient did not perform the activity before the current illness or injury 88 Not attempted due to Medical conditions or safety concerns Transfers (B, C, W/C) (FIM): 5 (SBA with walker.) Pt. ambulated to therapy gym. Pt. completed 15 minutes on armbike x mod resistance. Completed this task to increase UE strength and independence with daily skills. Pt. then donned 1 lb. wrist weights and completed series of UE strengthening and fine motor tasks. Pt. had great difficulty with nut/bolt activity. Pt. continually dropped the nuts and OT asked him if he would like her to put them on. Pt. insistent that he can do it. Pt. does eventually finish this task, and then completes peg activity, with emphasis to alternate arms with 1 lb. wrist weights on them, and to put pegs into board. After pt. finishes this, pt. is able to ambulate back to room with OT pushing IV pole. All needs met at this task. Education OT Patient Education: Correct positioning, Exercise program, Modified ADL techniques, Progress toward Goal/Update tx plan, Purpose of tx/functional activities, Reviewed precautions, Rehab process, Safety issues, Transfer techniques Teaching Recipient: Patient Teaching Methods: Demonstration, Discussion Response to Teaching: Verbalize Understanding, Return Demonstration OT Short Term Goals Short Term Goals Time Frame: Nov 21, 2017 Eating(FIM): 5 Grooming(FIM): 5 Bathing(FIM): 5 Upper Body Dressing(FIM): 5 Lower Body Dressing(FIM): 5 Toileting(FIM): 5 Transfers (B,C,W/C) (FIM): 5 Toilet/Commode Transfer(FIM): 5 Shower Transfer(FIM): 5 Additional Short Term Goals: 1-Demonstrate ADL Tasks, 2-Verbalize Understanding , 3-ImproveStrength/Amanda 1=Demonstrate adherence to instructed precautions during ADL tasks. 2=Patient will verbalize/demonstrate understanding of assistive devices/ modifications for ADL. 3=Patient will improve strength/tolerance for activity to enable patient to perform ADL's. OT Aircraft Sheet Metal Mechanic Goals Long-Term Goals Time Frame: Dec 05, 2017 Eating (FIM): 6 Eating (QC): 6 Groomin Oral Hygiene (QC): 6 Bathing(FIM): 5 Shower/Bathe Self (QC): 5 Upper Body Dressing(FIM): 6 Upper Body Dressing (QC): 6 Lower Body Dressing(FIM): 6 Lower Body Dressing (QC): 6 On/Off Footwear (QC): 6 Toileting(FIM): 6 Toileting Hygiene (QC): 6 Transfers (B,C,W/C) (FIM): 6 Toilet/Commode Transfer(FIM): 6 Toilet/Commode Transfer (QC): 6 Shower Transfer(FIM): 5 Comprehension(FIM): 5 Expression (FIM): 5 Social Interaction(FIM): 5 Problem Solving(FIM): 4 Memory(FIM): 4 Additional Goals: 1-Demonstrate ADL Tasks, 2-Verbalize Understanding, 3- ImproveStrength/Amanda 1=Demonstrate adherence to instructed precautions during ADL tasks. 2=Patient will verbalize/demonstrate understanding of assistive devices/ modifications for ADL. 3=Patient will improve strength/tolerance for activity to enable patient to perform ADL's. OT Education/Plan Problem List/Assessment Assessment: Decreased Activ Tolerance, Decreased UE Strength, Impaired I ADL's , Impaired Self-Care Skills Discharge Recommendations Plan/Recommendations: Continue POC Therapy D/C Recommendations: Home w/ Family Support, Occupational Therapy Home Care Treatment Plan/Plan of Care Treatment,Training & Education: Yes Patient would benefit from OT for education, treatment and training to promote independence in ADL's, mobility, safety and/or upper extremity function for ADL' s. Plan of Care: ADL Retraining, Functional Mobility, Group Exercise/Act as Ind, UE Funct Exercise/Act Treatment Duration: Dec 05, 2017 Frequency: At least 5 of 7 days/Wk (IRF) Estimated Hrs Per Day: 1.5 hours per day Agreement: Yes Rehab Potential: Good Time/GCodes Start Time: 10:00 Stop Time: 11:15 Total Time Billed (hr/min): 75 Billed Treatment Time 1, FA x 60minutes, Ex x 15minutes BASIM LYNN OT Nov 25, 2017 11:34
[2017-11-25] MEDS: inSUlin Protamine/ASPart 70/30 1 UNIT/0.01 ML DOSE SC SCH ×2 (13:25→21:32)
--- NOTE | 2017-11-25 14:04 | Physical Therapy Daily Note ---
PT Daily Note-Current Subjective Pt sitting in recliner upon arrival. Pt agrees to PT. Pain Location: No Pain Reported Mental Status Patient Orientation: Person, Place Transfers Functional [place] Measure 0=Not Assessed/NA 4=Minimal Assistance 1=Total Assistance 5=Supervision or Setup 2=Maximal Assistance 6=Modified [place] 3=Moderate Assistance 7=Complete IndependenceIRFPAI Quality Coding Scale 6 Independent with activity with or without an assistive device 5 Patient requires set up or clean up by helper. Patient completes activity by themselves 4 Supervision or touching assist (CGA). [place] provide cues , steadying assist 3 The helper provides less than half the effort to complete the activity 2 The helper provides more than half the effort to complete the activity 1 Dependent. The helper does all the effort to complete an activity 7 Patient refused to complete or attempt activity 9 The patient did not perform the activity before the current illness or injury 88 Not attempted due to Medical conditions or safety concerns Scootin Sit to/from Stand: 5 Sit to Stand (QC): 5 Weight Bearing Right Lower Extremity: Right Full Weight Bearing Left Lower Extremity: Left Full Weight Bearing Gait Training Does the Patient Walk?: Yes Distance (FIM): 1=up to 49 ft Distance: 40' Walk 10 feet (QC): 5 Gait Level of Assist: 5 Gait Persons Needed: 1 Gait Assistive Device: FWW Pt has slow xochitl. Pt sometimes tries to leave FWW when walking. Wheelchair Training Does the Pt Use a Wheelchair?: No Exercises Seated Therapy Exercises: Ankle pumps, Long arc quads, Hip flexion, Kicking activity, Hip abd/add Seated Reps: 15 Treatments Pt transfers from recliner to standing using FWW at SBA. Pt ambulates to restroom then returns to recliner to rest. Pt completes Seated Ex in recliner before reclining back at end of tx to rest. Pt has all needs met. Assessment Current Status: Fair Progress Pt needs VC to keep FWW close and not walk off without it. Pt fatigues easily and gets SOA. PT Short Term Goals Short Term Goals Time Frame: Nov 21, 2017 Transfers (B,C,W/C) (FIM): 5 Gait (FIM): 5 Distance (FIM): 3=150 ft Gait Distance Comment: 300 feet Gait Level of Assist: 5 Gait Assistive Device: FWW Stairs (FIM): 2 # of Steps: 4 Stairs Level of Assist: 4 PT International Representative Goals International Representative Goals PT Longterm Goals Time Frame: Dec 05, 2017 Transfers (B,C,W/C) (FIM): 6 Sit to Lying (QC): 6 Lying-Sitting on Side/Bed(QC): 6 Sit to Stand (QC): 6 Rollin Roll Left to Right (QC): 6 Chair/Xtg-uh-Dfpkg Xfer(QC): 6 Car Transfer (QC): 4 Does the Patient Walk: Yes Gait (FIM): 6 Gait distance (FIM): 3=150 ft Distance: 300 feet Walk 10 feet (QC): 6 Walk 10ft-Uneven Surface(QC): 6 Walk 50ft with 2 Turns (QC): 6 Walk 150 ft (QC): 6 Gait Level of Assist: 6 Gait Assistive Device: FWW Stairs (FIM): 2 # of Steps: 4 1 Step (curb) (QC): 4 4 Steps (QC): 4 12 Steps (QC): 88 Stairs Level Of Assist: 5 Picking up an Object (QC): 5 PT Plan Problem List Problem List: Activity Tolerance, Functional Strength, Safety, Balance, Gait Treatment/Plan Treatment Plan: Continue Plan of Care Treatment Plan: Bed Mobility, Education, Functional Activity Amanda, Functional Strength, Group Therapy, Gait, Safety, Therapeutic Exercise, Transfers Treatment Duration: Dec 05, 2017 Frequency: At least 5 of 7 days/Wk (IRF) Estimated Hrs Per Day: 1.5 hours per day Patient and/or Family Agrees t: Yes Safety Risks/Education Patient Education: Gait Training, Transfer Techniques, Correct Positioning, Safety Issues Teaching Recipient: Patient Teaching Methods: Discussion Response to Teaching: Verbalize Understanding Time/GCodes Time In: 1330 Time Out: 1400 Total Billed Treatment Time: 30 Total Billed Treatment 1, FA (10m) & EX (20m) TYRONE OLMOS PTA Nov 25, 2017 14:04
[2017-11-25] MEDS: warFARin 5 MG (COUMADIN) TAB PO SCH (17:32)
[2017-11-25 17:43] VITALS: BP 131/77
[2017-11-26] MEDS: MEROPENEM 500 MG in NS (IVPB) 100 ML IV SCH ×3 (02:01→17:39)
[2017-11-26 05:18] LABS: BASOPHILS % (AUTO) 0 % (0-10); EOSINOPHILS # (AUTO) 0.2 10^3/uL (0.0-0.3); EOSINOPHILS % (AUTO) 2 % (0-10); HEMATOCRIT 33 % (40-54); LYMPHOCYTES # (AUTO) 1.6 X 10^3 (1.0-4.0); LYMPHOCYTES % (AUTO) 14 % (12-44); MEAN CORPUSCULAR HEMOGLOBIN 31 PG (25-34); MEAN CORPUSCULAR HGB CONC 36 G/DL (32-36); MEAN CORPUSCULAR VOLUME 86 FL (80-99); MEAN PLATELET VOLUME 11.2 FL (7.4-10.4); MONOCYTES # (AUTO) 1.3 X 10^3 (0.0-1.0); MONOCYTES % (AUTO) 11 % (0-12); NEUTROPHILS # (AUTO) 8.7 X 10^3 (1.8-7.8); NEUTROPHILS % (AUTO) 73 % (42-75); PLATELET COUNT 109 10^3/uL (130-400); RED BLOOD COUNT 3.88 10^6/uL (4.35-5.85); RED CELL DISTRIBUTION WIDTH 14.1 % (10.0-14.5); WHITE BLOOD COUNT 11.9 10^3/uL (4.3-11.0)
[2017-11-26 05:28] LABS: PROTHROMBIN TIME PATIENT 30.7 SEC (12.2-14.7)
[2017-11-26 05:35] LABS: CALCIUM 8.4 MG/DL (8.5-10.1); CREATININE SERUM 1.46 MG/DL (0.60-1.30); POTASSIUM 3.7 MMOL/L (3.6-5.0)
[2017-11-26] MEDS: NS IV 1000 ML 1,000 ML IV SCH ×2 (05:43→08:09)
[2017-11-26 06:10] VITALS: BP 136/88
[2017-11-26] MEDS: FUROSEMIDE 40 MG (LASIX) TAB PO SCH ×2 (06:25→13:36)
[2017-11-26] MEDS: OMEGA 3 (FISH OIL) 1000 MG CAP PO SCH (06:25)
[2017-11-26] MEDS: KCL 20 MEQ TAB (K-DUR) PO SCH ×2 (06:25→17:39)
[2017-11-26] MEDS: NEO/POLY/DEX (MAXITROL) OPHTH OINT 3.5 GM OP SCH (08:09)
[2017-11-26] MEDS: MUPIROCIN 2% OINT 22 GM (BACTROBAN) TUBE TOP SCH ×2 (08:09→20:58)
[2017-11-26] MEDS: LOTEPREDNOL OP SCH ×3 (08:09→20:58)
--- NOTE | 2017-11-26 08:09 | PM & R (SOAP) Progress Note ---
Subjective Time Seen by Provider: 07:55 Subjective/Events-last exam Patient was seen in his room this Am.Patient somewhat somnolent Patient concerned re not urinating enough but RN reports urinating every hour.Patient continues on IV antibiotics for recurrent uti.Patient SBA for transfers Objective Exam Last Set of Vital Signs Vital Signs Date Time Temp Pulse Resp B/P (MAP) Pulse Ox O2 Delivery O2 Flow Rate FiO2 11/26/17 06:10 97.9 85 18 136/88 (104) 97 Room Air 11/24/17 14:13 2.00 Capillary Refill : I&O Intake and Output 11/26/17 00:00 Intake Total 3210 ml Balance 3210 ml Intake Oral 1660 ml IV Total 1550 ml # Voids 17 General: Alert, Oriented X3, No Acute Distress HEENT: Atraumatic, PERRLA, EOMI, Mucous Memb Moist/[place] Neck: Supple, No JVD Lungs: Clear to Auscultation Heart: Regular Rate Abdomen: Normal Bowel Sounds, Soft, No Tenderness Extremities: Other (trace edeam) Skin: Other (Diabetic ulcer left heel and rt fourth toe) Neuro: Other (Generalized weakness with impaired sensation in feet) Results Lab Laboratory Tests 11/23/17 15:49: Glucometer 227H 11/23/17 20:58: Glucometer 199H 11/24/17 05:05: Prothrombin Time 21.9H, INR Comment 1.9H 11/24/17 05:11: Glucometer 78 11/24/17 17:05: Glucometer 166H 11/24/17 20:57: Glucometer 132H 11/25/17 04:50: Glucometer 91 11/25/17 08:25: White Blood Count 13.8H, Red Blood Count 4.16L, Hemoglobin 12.8L, Hematocrit 36L , Mean Corpuscular Volume 87, Mean Corpuscular Hemoglobin 31, Mean Corpuscular Hemoglobin Concent 36, Red Cell Distribution Width 14.2, Platelet Count 115L, Mean Platelet Volume 11.1H, Neutrophils (%) (Auto) 76H, Lymphocytes (%) (Auto) 11L, Monocytes (%) (Auto) 12, Eosinophils (%) (Auto) 1, Basophils (%) (Auto) 0, Neutrophils # (Auto) 10.5H, Lymphocytes # (Auto) 1.5, Monocytes # (Auto) 1.6H, Eosinophils # (Auto) 0.2, Basophils # (Auto) 0.0, Sodium Level 135, Potassium Level 4.3, Chloride Level 105, Carbon Dioxide Level 24, Anion Gap 6, Blood Urea Nitrogen 30H, Creatinine 1.74H, Estimat Glomerular Filtration Rate 38, BUN/ Creatinine Ratio 17, Glucose Level 146H, Calcium Level 9.0, Phosphorus Level 3.1 , Albumin 3.0L 11/25/17 16:36: Glucometer 160H 11/25/17 21:31: Glucometer 201H 11/26/17 05:09: Glucometer 109 11/26/17 05:10: White Blood Count 11.9H, Red Blood Count 3.88L, Hemoglobin 12.0L, Hematocrit 33L , Mean Corpuscular Volume 86, Mean Corpuscular Hemoglobin 31, Mean Corpuscular Hemoglobin Concent 36, Red Cell Distribution Width 14.1, Platelet Count 109L, Mean Platelet Volume 11.2H, Neutrophils (%) (Auto) 73, Lymphocytes (%) (Auto) 14 , Monocytes (%) (Auto) 11, Eosinophils (%) (Auto) 2, Basophils (%) (Auto) 0, Neutrophils # (Auto) 8.7H, Lymphocytes # (Auto) 1.6, Monocytes # (Auto) 1.3H, Eosinophils # (Auto) 0.2, Basophils # (Auto) 0.0, Prothrombin Time 30.7H, INR Comment 3.0H, Sodium Level 138, Potassium Level 3.7, Chloride Level 109H, Carbon Dioxide Level 19L, Anion Gap 10, Blood Urea Nitrogen 28H, Creatinine 1.46H, Estimat Glomerular Filtration Rate 46, BUN/Creatinine Ratio 19, Glucose Level 120H, Calcium Level 8.4L Microbiology 11/22/17 Urine Culture - Preliminary, Resulted Pseudomonas aeruginosa Proteus mirabilis Escherichia coli See Comments Assessment/Plan Assessment 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 Peripheral neuropathy Recurrent UTI on IV antibiotic and with contact precautions Skin abrasions both knees secondary to falls Type 2 DM VIPIN CKD stage 3 Mild dementia COPD GERD without espohagitis A fiB chronically anticoagulated with coumadin Supratherapeutic INR-with coumadin on hold 4.8 on 11-20-17-now resaumed Plan Continue PT/OT/Wound care F/U with DR Alexander PCP and Bud prn [id number] INR Current labs noted-will recheck Discharge on hold at this time due to recurrent UTI-probable discharge tomorrow to home with HHC and spouse with IV antibiotics Will f/u with Team/SW and PCP Next Team Conference scheduled for today if still here Consult DR ran EDGE re any further recs TRINITY COLBERT MD Nov 26, 2017 08:09
[2017-11-26] MEDS: CLOPIDOGREL 75 MG (PLAVIX) TABLET PO SCH (08:10)
[2017-11-26] MEDS: CARVEDILOL 12.5 MG (COREG) TABLET PO SCH ×2 (08:10→20:57)
[2017-11-26] MEDS: LOSARTAN 25 MG (COZAAR) TAB PO SCH (08:10)
[2017-11-26] MEDS: ASPIRIN E.C. 81 MG (ECOTRIN) TAB PO SCH (08:10)
[2017-11-26] MEDS: ONDANSETRON 4 MG (ZOFRAN) ORAL DISSOLVE TAB PO SCH ×2 (08:10→20:57)
[2017-11-26] MEDS: DIGOXIN 0.125 MG (LANOXIN) TAB PO SCH (08:10)
[2017-11-26] MEDS: TROSPIUM 20 MG (SANCTURA) TAB PO SCH (08:10)
[2017-11-26] MEDS: FAMOTIDINE 20 MG (PEPCID) TABLET PO SCH (08:10)
[2017-11-26] MEDS: FERROUS SULF 325 MG (IRON) TAB PO SCH ×2 (08:11→17:39)
[2017-11-26] MEDS ORDERED: [UNRECOGNIZED DRUG - OTHER] IR SCH ×2 (09:00)
[2017-11-26] MEDS ORDERED: CEFDINIR 300 MG (OMNICEF) CAP PO SCH (09:00)
--- NOTE | 2017-11-26 10:20 | Physical Therapy Daily Note ---
PT Daily Note-Current Subjective Pt. up in recliner and upset . States he is not working with PT b/c he expects to leave here today but has to have a catheter put in so he can get ABX through his catheter through irrigation. Pt. adamantly refuses PT Rx. Transfers Functional [place] Measure 0=Not Assessed/NA 4=Minimal Assistance 1=Total Assistance 5=Supervision or Setup 2=Maximal Assistance 6=Modified [place] 3=Moderate Assistance 7=Complete IndependenceIRFPAI Quality Coding Scale 6 Independent with activity with or without an assistive device 5 Patient requires set up or clean up by helper. Patient completes activity by themselves 4 Supervision or touching assist (CGA). [place] provide cues , steadying assist 3 The helper provides less than half the effort to complete the activity 2 The helper provides more than half the effort to complete the activity 1 Dependent. The helper does all the effort to complete an activity 7 Patient refused to complete or attempt activity 9 The patient did not perform the activity before the current illness or injury 88 Not attempted due to Medical conditions or safety concerns Weight Bearing Right Lower Extremity: Right Full Weight Bearing Left Lower Extremity: Left Full Weight Bearing Assessment Current Status: No Treatment/Other Tests no Rx pt. refuses as he is hoping to DC today and is having a catheter put in for irrigation and ABX PT Short Term Goals Short Term Goals Time Frame: Nov 21, 2017 Transfers (B,C,W/C) (FIM): 5 Gait (FIM): 5 Distance (FIM): 3=150 ft Gait Distance Comment: 300 feet Gait Level of Assist: 5 Gait Assistive Device: FWW Stairs (FIM): 2 # of Steps: 4 Stairs Level of Assist: 4 PT Image Processing Engineer Goals Image Processing Engineer Goals PT Custodial Goals Time Frame: Dec 05, 2017 Transfers (B,C,W/C) (FIM): 6 Sit to Lying (QC): 6 Lying-Sitting on Side/Bed(QC): 6 Sit to Stand (QC): 6 Rollin Roll Left to Right (QC): 6 Chair/Xbn-po-Arnsb Xfer(QC): 6 Car Transfer (QC): 4 Does the Patient Walk: Yes Gait (FIM): 6 Gait distance (FIM): 3=150 ft Distance: 300 feet Walk 10 feet (QC): 6 Walk 10ft-Uneven Surface(QC): 6 Walk 50ft with 2 Turns (QC): 6 Walk 150 ft (QC): 6 Gait Level of Assist: 6 Gait Assistive Device: FWW Stairs (FIM): 2 # of Steps: 4 1 Step (curb) (QC): 4 4 Steps (QC): 4 12 Steps (QC): 88 Stairs Level Of Assist: 5 Picking up an Object (QC): 5 PT Plan Treatment/Plan Treatment Plan: Continue Plan of Care Treatment Plan: Bed Mobility, Education, Functional Activity Amanda, Functional Strength, Group Therapy, Gait, Safety, Therapeutic Exercise, Transfers Treatment Duration: Dec 05, 2017 Frequency: At least 5 of 7 days/Wk (IRF) Estimated Hrs Per Day: 1.5 hours per day Patient and/or Family Agrees t: Yes Time/GCodes Time In: 1000 Time Out: 1005 Total Billed Treatment Time: 0 Total Billed Treatment 1,no RX, no chg G Codes Necessary: No TREVER BURNS CLOUD ARCHITECT Nov 26, 2017 10:20
--- NOTE | 2017-11-26 10:23 | D/C HH Face to Face Order ---
D/C Face to Face Orders Instructions for Patient Patient Instructions/FollowUp: Dr. Alexander on 12/04/17 at 1pm Physician to follow Patient: Dr. Hugo Alexander Discharge Diet for Home: other diet (60CHO) Patient Data-Allergies,Ht & Wt Patient Allergies: Coded Allergies: sulfamethoxazole (Verified Allergy, Mild, RASH, 11/13/17) trimethoprim (Verified Allergy, Mild, RASH, 11/13/17) Height (Feet): 5 Height (Inches): 10.00 Weight (Pounds): 220 Weight (Ounces): 6.0 Home Health Need/Face to Face Date of Face to Face: Nov 26, 2017 Clinical Findings: Generalized weakness and fatigue, Unsteady gait I have seen Pt [id number]: Yes Discharged To: Home Diagnosis/Conditions: A FIB UTI General debil Problems/Diagnosis/Condition: Patient is Homebound due to: CognItive deficits, Tito fall risk due to instabilty, Muscle weakness Homebound Status Due to the above stated illness, injury or surgical procedure (medical condition or diagnosis) and associated clinical findings, the patient is homebound because of his/her inability to leave home except with aid of a supportive device and/or person AND leaving the home requires a considerable and taxing effort or is medically contraindicated. Pt req the following assistanc: Walker Home Health Nursing Orders Home Health Services Order: Nursing Services, Assembler And Tester Electronics-Evaluate & Treat, Physical Therapy-Evaluate & Treat wound care-R 4th toe: keep dry and paint with Betadine Solution daily. L Heel: cleanse with normal saline, apply aquacel with silver daily and cover with gauze. Due to UTI, patient will have mackay catheter for 10days with need for daily infusion into mackay catheter for bladder irrigation, of 80 mg GENTAMICIN and 500ml NS. Clamp catheter for 30min following infusion. Home Health Infusion Therapy Line Type: Saline Lock Site Location: Antecubital Therapy Orders Therapy Orders: Physical Therapy, PT to assess for OT Therapy Specific Orders: Eval assistive deivces, Teach enviro modifications/ safety, Gait training, Increase strength/endurance Certify Stmt I certify that this patient is under my care and that I, a nurse practitioner or a physician; a escrow assistant working with me, had a face to face encounter that - meets the physician face to face encounter requirements with this patient as dated. I personally scribed for COLBERT,TRINITY E MD (NATHANIEL) on 11/26/17 at 09:24. Electronically submitted by Marivel Reynolds ([id number]). I personally scribed for TRINITY COLBERT MD (NATHANIEL) on 11/26/17 at 10:23. Electronically submitted by Marivel Reynolds ([id number]). TRINITY COLBERT MD Nov 26, 2017 09:12
--- NOTE | 2017-11-26 10:49 | Speech Therapy Daily Note ---
Speech Daily Progress Note Subjective Date Seen by Provider: Nov 26, 2017 Time Seen by Provider: 08:30 The patient was seated upright in recliner upon entrance. The patient greeted the clinician appropriately and was agreeable to participation in the cognitive evaluation. Objective As the patient is scheduled to discharge on this date or tomorrow's date (2017), Speech pathology completed a cognitive evaluation with the following results: - The patient was able to repeat short phrases, complete serial seven subtraction, repeat five digits forward and three digits in reverse, identify a specific letter in a string of letters, complete accurate orientation information, repeat five words immediately (with no recall of the five words following a five minute delay), and provide a similarity between two items. The patient demonstrates cognition similar to his baseline function, where he noted difficulty with delayed recall (something he reports has occurred for the past year). Assessment Assessment Current Status: Good Progress Treatment Plan Continue Plan of Care Communication Comprehension: 4 Expression: 4 Social Cognition Social Interaction: 4 Problem Solvin Memory: 3 Speech Short Term Goals Short Term Goals Short Term Goals 1. The patient will recall two functional memory strategies for use at home with mild clinician prompting. 2. The patient will recall three items immediately and following a five minute delay. 3. The patient will display 80% accuracy with safety problem solving and sequencing of ADL tasks. Time Frame-STG: One Week Speech Mcc Goals Staff Field Engineer Goals 1. The patient will demonstrate improved cognitive linguistic skills for increased safety and function with ADL's in the least restrictive setting. Time Frame: Two Weeks Comprehension: 5 Expression: 5 Social Interaction: 5 Problem Solvin Memory: 4 Speech-Plan Treatment Plan Speech Therapy Treatment Plan: Continue Plan of Care Continue skilled speech pathology to target functional recall. Treatment Duration: Nov 28, 2017 Frequency: Modified Program (IRF) (4 to 5 times per week.) Estimated Hrs Per Day: .5 hour per day Rehab Potential: Good Safety Risks/Education Teaching Recipient: Patient Teaching Methods: Discussion Response to Teaching: Verbalize Understanding Education Topics Provided: Results, Recommendations Time Speech Therapy Time In: 08:30 Speech Therapy Time Out: 09:00 Total Billed Time: 30 Billed Treatment Time VALENTINA Christopher [facility] ST Nov 26, 2017 10:49
[2017-11-26] MEDS ORDERED: CEFD300C3 PO (11:25)
--- NOTE | 2017-11-26 11:28 | Occ Therapy Progress Note ---
Therapy Progress Note Nursing attempting all morning to get catheter into pt. for discharge. Having a difficult time. Calling . Pt. declines treatment while waiting on Dr. Will attempt back later. 1, visit 1030 BASIM LYNN OT Nov 26, 2017 11:28
[2017-11-26] MEDS: inSUlin Protamine/ASPart 70/30 1 UNIT/0.01 ML DOSE SC SCH ×2 (13:36→20:57)
--- NOTE | 2017-11-26 14:04 | Progress Note (SOAP) ---
Subjective Subjective Date Seen by Provider: Nov 26, 2017 Time Seen by Provider: 08:30 82 yo M still in rehab- big issue is recurrent resistant urinary tract infection. Would like to go home but need to have arrangement for treatment of his uti. Pt not happy about getting a catheter placed. Review of Systems General: No Chills, No Night Sweats HEENT: No Head Aches, No Visual Changes Pulmonary: No Dyspnea, No Cough Cardiovascular: No: Chest Pain, Palpitations, Orthopnea Gastrointestinal: No: Nausea, Vomiting, Abdominal Pain Genitourinary: No Dysuria, No Frequency Musculoskeletal: No: neck pain, shoulder pain Neurological: Weakness, No: Confusion Objective Exam Vital Signs Vital Signs - First Documented 11/20/17 11/24/17 06:06 14:13 Temp 97.4 Pulse 89 Resp 20 B/P (MAP) 171/89 (116) Pulse Ox 97 O2 Delivery NIV CPAP O2 Flow Rate 2.00 Capillary Refill : General Appearance: No Apparent Distress, WD/WN HEENT: PERRL/EOMI Neck: Full Range of Motion, Normal Inspection, Non Tender Respiratory: Chest Non Tender, Lungs Clear, Normal Breath Sounds, No Accessory Muscle Use, No Respiratory Distress Cardiovascular: Regular Rate, Rhythm, Other (some irregular rhythm) Gastrointestinal: Normal Bowel Sounds, Non Tender, Soft Rectal: Deferred Back: No CVA Tenderness, No Vertebral Tenderness Extremity: No Calf Tenderness, Other (knees are painful) Neurologic/Psychiatric: Alert, Other (confused) Skin: Warm/Dry Results Lab Laboratory Tests 11/25/17 16:36: Glucometer 160H 11/25/17 21:31: Glucometer 201H 11/26/17 05:09: Glucometer 109 11/26/17 05:10: White Blood Count 11.9H, Red Blood Count 3.88L, Hemoglobin 12.0L, Hematocrit 33L , Mean Corpuscular Volume 86, Mean Corpuscular Hemoglobin 31, Mean Corpuscular Hemoglobin Concent 36, Red Cell Distribution Width 14.1, Platelet Count 109L, Mean Platelet Volume 11.2H, Neutrophils (%) (Auto) 73, Lymphocytes (%) (Auto) 14 , Monocytes (%) (Auto) 11, Eosinophils (%) (Auto) 2, Basophils (%) (Auto) 0, Neutrophils # (Auto) 8.7H, Lymphocytes # (Auto) 1.6, Monocytes # (Auto) 1.3H, Eosinophils # (Auto) 0.2, Basophils # (Auto) 0.0, Prothrombin Time 30.7H, INR Comment 3.0H, Sodium Level 138, Potassium Level 3.7, Chloride Level 109H, Carbon Dioxide Level 19L, Anion Gap 10, Blood Urea Nitrogen 28H, Creatinine 1.46H, Estimat Glomerular Filtration Rate 46, BUN/Creatinine Ratio 19, Glucose Level 120H, Calcium Level 8.4L Microbiology 11/22/17 Urine Culture - Preliminary, Resulted Pseudomonas aeruginosa Proteus mirabilis Escherichia coli See Comments Assessment/Plan Assessment/Plan Admission Dx as above Assessment and Plan (N39.0) Urinary tract infection- completed doxycycline 11/14/17 -recurrent UTI urine culture 11/22/17 pseudomonas, proteus, ecoli started meropenem- 11/24/2017- R53.1 Weakness/deconditioning- inpatient rehab- doing well. discharge to home on hold given recurrent UTI. 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 (G47.33) Obstructive sleep apnea - home cpap (N18.3) Chronic kidney disease, stage 3 (moderate) --monitor Cr. - fluid hydration. chronic wound- bottom of foot- wound care consult- completed cefdinir and linezolid (J44.9) Chronic obstructive pulmonary disease- continue oxygen prn, oxygen with ambulating. (I48.91) atrial fibrillation- restarted warfarin , monitoring inr (I15.9) Secondary hypertension- continue current regimen. (K21.9) Gastro-esophageal reflux disease without esophagitis Chronic (F03.90) dementia without behavioral disturbance- monitor- worsened by infections- Dispo: Continue Inpatient rehab - may need to transfer back to inpatient if his illness worsens. still awaiting final results on E.coli as it may be resistant to meropenem.- Attempts for mackay placement- unsuccessful. As we were planning gentamicin bladder infusion. with urethral disturbance and catheter attempts- will monitor overnight for sure as pt is at high risk for developing sepsis/shock -consider ertapenem 1g IV daily for 7-10days and ciprofloxacin for pseudomonas coverage. Problems: Admission Dx as above Clinical Quality Measures DVT/VTE Risk/Contraindication: Risk Factor Score Per Nursin RFS Level Per Nursing on Admit: 4+=Very High RUBEN SANCHEZ MD Nov 26, 2017 14:04
--- NOTE | 2017-11-26 17:35 | CONSULTATION REPORT ---
DATE OF SERVICE: 11/26/2017 ATTENDING PHYSICIAN: Dr. Alexander - Dr. Guadalupe. SUMMARY: After reviewing the patient's records in the hospital and at the office, this is an 82-year-old man known to me with history of neurogenic bladder with previous indwelling catheter that created splitting of the urethra at the meatus level producing kind of glandular hypospadias. The patient is admitted with UTI. Primary urine culture showed Pseudomonas, Proteus and E. coli with possible ESBL. Dr. Alexander wanted to insert a Soriano catheter to instill antibiotic solution of 500 mL with gentamicin daily and clamped the catheter for 30 minutes and then evacuated the bladder. The patient does not have any significant voiding issues according to him. He feels he empties his bladder. We know from past history that he had some urinary retention. We did a bladder scan on him and it was 200 mL of urine residual. I went ahead and attempted to insert a Soriano catheter, but met the resistance what he has felt to be a urethral stricture. I discontinued any further attempts. The labs values are significant today for an INR of 3 with a PT of 30.7, a creatinine of 1.46, white count of 11.9. IMPRESSION: 1. Urinary tract infection. 2. Urethral stricture. 3. Neurogenic bladder with some retention. RECOMMENDATIONS: If a catheter is need indeed, the patient is going to need a cystoscopy and depending on that, he may need urethral dilatation or more procedure, which at that time will necessitate not only a general anesthetic, but also holding his Coumadin to normalize his PT and INR, which would be before proceeding with an traumatic procedure. I also take into consideration that his creatinine is 1.46 with a GFR of 46 in an 82-year-old man, I will be reluctant to put gentamicin in his bladder for possible absorption. Also, if an antibiotic irrigation is warranted, it should be a continuous bladder irrigation using a 3-way catheter, which may even be more complicating depending on which size we can get to put in the patient. I would recommend to wait the results of the culture, treat him with IV antibiotics, forget about the catheter and the catheter irrigation. Later on, on the condition, if there is no infection and where we can hold off his Coumadin, then we can proceed with other procedure related to his stricture. I will discuss the matter with Dr. Alexander and go from there. Job ID: [id number] DocumentID: [id number] Dictated Date: 11/26/2017 12:00:52 Regional Environmental Manager Date: 11/26/2017 14:51:46 Dictated By: JAVIER SORENSEN MD
[2017-11-26] MEDS: warFARin 7.5 MG (COUMADIN) TAB PO SCH (17:39)
[2017-11-26 17:40] VITALS: BP 140/86
[2017-11-27] MEDS: MEROPENEM 500 MG in NS (IVPB) 100 ML IV SCH ×2 (01:31→09:58)
[2017-11-27] MEDS: NS IV 1000 ML 1,000 ML IV SCH (03:59)
[2017-11-27 05:22] VITALS: BP 148/81
[2017-11-27 05:50] LABS: INR 2.8 (0.8-1.4); PROTHROMBIN TIME PATIENT 29.7 SEC (12.2-14.7)
[2017-11-27] MEDS: OMEGA 3 (FISH OIL) 1000 MG CAP PO SCH (06:18)
[2017-11-27] MEDS: FERROUS SULF 325 MG (IRON) TAB PO SCH (06:18)
[2017-11-27] MEDS: FUROSEMIDE 40 MG (LASIX) TAB PO SCH ×2 (06:18→15:11)
[2017-11-27] MEDS: KCL 20 MEQ TAB (K-DUR) PO SCH (06:18)
--- NOTE | 2017-11-27 08:53 | PM & R (SOAP) Progress Note ---
Subjective Time Seen by Provider: 08:20 Subjective/Events-last exam Patient was seen in his room this AM with RN Patient anxoius to go home but Picc line being placed for IV access for ongoing IV antibiotics.Discussed maia with DR Silva EDGE yesterday Patient would have to have Coumadin held for cysto for treatment of Stricture.Dr Alexander to f/u re possible placement at SNU versus home with IV antibiotics.Discharge from IRU on hold until these issues resolved. Objective Exam Last Set of Vital Signs Vital Signs Date Time Temp Pulse Resp B/P (MAP) Pulse Ox O2 Delivery O2 Flow Rate FiO2 11/27/17 05:22 97.5 75 19 148/81 (103) 97 Room Air 11/24/17 14:13 2.00 Capillary Refill : I&O Intake and Output 11/27/17 00:00 Intake Total 2450 ml Balance 2450 ml Intake Oral 1150 ml IV Total 1300 ml # Voids 19 # Urine Diapers 4 General: Alert, Oriented X3, No Acute Distress HEENT: Atraumatic, PERRLA, EOMI, Mucous Memb Moist/[place] Neck: Supple, No JVD Lungs: Clear to Auscultation Heart: Regular Rate Abdomen: Normal Bowel Sounds, Soft, No Tenderness Extremities: Other (trace edeam) Skin: Other (Diabetic ulcer left heel and rt fourth toe) Neuro: Other (Generalized weakness with impaired sensation in feet) Results Lab Laboratory Tests 11/24/17 17:05: Glucometer 166H 11/24/17 20:57: Glucometer 132H 11/25/17 04:50: Glucometer 91 11/25/17 08:25: White Blood Count 13.8H, Red Blood Count 4.16L, Hemoglobin 12.8L, Hematocrit 36L , Mean Corpuscular Volume 87, Mean Corpuscular Hemoglobin 31, Mean Corpuscular Hemoglobin Concent 36, Red Cell Distribution Width 14.2, Platelet Count 115L, Mean Platelet Volume 11.1H, Neutrophils (%) (Auto) 76H, Lymphocytes (%) (Auto) 11L, Monocytes (%) (Auto) 12, Eosinophils (%) (Auto) 1, Basophils (%) (Auto) 0, Neutrophils # (Auto) 10.5H, Lymphocytes # (Auto) 1.5, Monocytes # (Auto) 1.6H, Eosinophils # (Auto) 0.2, Basophils # (Auto) 0.0, Sodium Level 135, Potassium Level 4.3, Chloride Level 105, Carbon Dioxide Level 24, Anion Gap 6, Blood Urea Nitrogen 30H, Creatinine 1.74H, Estimat Glomerular Filtration Rate 38, BUN/ Creatinine Ratio 17, Glucose Level 146H, Calcium Level 9.0, Phosphorus Level 3.1 , Albumin 3.0L 11/25/17 16:36: Glucometer 160H 11/25/17 21:31: Glucometer 201H 11/26/17 05:09: Glucometer 109 11/26/17 05:10: White Blood Count 11.9H, Red Blood Count 3.88L, Hemoglobin 12.0L, Hematocrit 33L , Mean Corpuscular Volume 86, Mean Corpuscular Hemoglobin 31, Mean Corpuscular Hemoglobin Concent 36, Red Cell Distribution Width 14.1, Platelet Count 109L, Mean Platelet Volume 11.2H, Neutrophils (%) (Auto) 73, Lymphocytes (%) (Auto) 14 , Monocytes (%) (Auto) 11, Eosinophils (%) (Auto) 2, Basophils (%) (Auto) 0, Neutrophils # (Auto) 8.7H, Lymphocytes # (Auto) 1.6, Monocytes # (Auto) 1.3H, Eosinophils # (Auto) 0.2, Basophils # (Auto) 0.0, Prothrombin Time 30.7H, INR Comment 3.0H, Sodium Level 138, Potassium Level 3.7, Chloride Level 109H, Carbon Dioxide Level 19L, Anion Gap 10, Blood Urea Nitrogen 28H, Creatinine 1.46H, Estimat Glomerular Filtration Rate 46, BUN/Creatinine Ratio 19, Glucose Level 120H, Calcium Level 8.4L 11/26/17 16:39: Glucometer 161H 11/27/17 04:53: Glucometer 84 11/27/17 05:05: Prothrombin Time 29.7H, INR Comment 2.8H Microbiology 11/22/17 Urine Culture - Preliminary, Resulted Pseudomonas aeruginosa Proteus mirabilis Escherichia coli See Comments Assessment/Plan Assessment 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 Peripheral neuropathy Recurrent UTI on IV antibiotic and with contact precautions Skin abrasions both knees secondary to falls Type 2 DM VIPIN CKD stage 3 Mild dementia COPD GERD without espohagitis A fiB chronically anticoagulated with coumadin Therapeutic INR- Urethral stricture Plan Continue PT/OT/Wound care F/U with DR Alexander PCP and Bud dyson Aocyvsxg-grdspvx-Dufknfn INR Current labs noted-will recheck Discharge on hold at this time due to recurrent UTI-and need for IV antibiotics- Picc line to be placed Will f/u with Team/SW and PCP Team Conference held yesterday -See report for full functional update and POC and ELOS Appreciate DR Prado note and recs -Discussed case with him yesterday-He will f/ u with TRINITY Borges MD Nov 27, 2017 08:53
[2017-11-27] MEDS: ONDANSETRON 4 MG (ZOFRAN) ORAL DISSOLVE TAB PO SCH (09:15)
[2017-11-27] MEDS: TROSPIUM 20 MG (SANCTURA) TAB PO SCH (09:15)
[2017-11-27] MEDS: FAMOTIDINE 20 MG (PEPCID) TABLET PO SCH (09:16)
[2017-11-27] MEDS: DIGOXIN 0.125 MG (LANOXIN) TAB PO SCH (09:16)
[2017-11-27] MEDS: MUPIROCIN 2% OINT 22 GM (BACTROBAN) TUBE TOP SCH (09:16)
[2017-11-27] MEDS: CLOPIDOGREL 75 MG (PLAVIX) TABLET PO SCH (09:16)
[2017-11-27] MEDS: CARVEDILOL 12.5 MG (COREG) TABLET PO SCH (09:16)
[2017-11-27] MEDS: NEO/POLY/DEX (MAXITROL) OPHTH OINT 3.5 GM OP SCH (09:16)
[2017-11-27] MEDS: LOSARTAN 25 MG (COZAAR) TAB PO SCH (09:16)
[2017-11-27] MEDS: ASPIRIN E.C. 81 MG (ECOTRIN) TAB PO SCH (09:16)
[2017-11-27] MEDS: LOTEPREDNOL OP SCH ×2 (09:17→13:43)
--- NOTE | 2017-11-27 09:18 | Diagnostic Imaging Report ---
INDICATION: PICC line placement Portable chest 9:03 AM Left upper extremity PICC line tip projects over the SVC. There is some old healed right rib fractures. Heart size and pulmonary vascularity are normal. Lungs are clear. There are no effusions or pneumothoraces. IMPRESSION: PICC line tip projects over the SVC. Dictated by: Dictated on workstation # [id number]
[2017-11-27 10:16] LABS: BASOPHILS % (AUTO) 0 % (0-10); EOSINOPHILS # (AUTO) 0.2 10^3/uL (0.0-0.3); EOSINOPHILS % (AUTO) 1 % (0-10); HEMATOCRIT 34 % (40-54); HEMOGLOBIN 12.1 G/DL (13.3-17.7); LYMPHOCYTES # (AUTO) 1.4 X 10^3 (1.0-4.0); LYMPHOCYTES % (AUTO) 13 % (12-44); MEAN CORPUSCULAR HEMOGLOBIN 31 PG (25-34); MEAN CORPUSCULAR HGB CONC 36 G/DL (32-36); MEAN CORPUSCULAR VOLUME 86 FL (80-99); MEAN PLATELET VOLUME 11.1 FL (7.4-10.4); MONOCYTES # (AUTO) 1.2 X 10^3 (0.0-1.0); MONOCYTES % (AUTO) 11 % (0-12); NEUTROPHILS # (AUTO) 8.1 X 10^3 (1.8-7.8); NEUTROPHILS % (AUTO) 74 % (42-75); PLATELET COUNT 112 10^3/uL (130-400); RED BLOOD COUNT 3.95 10^6/uL (4.35-5.85); RED CELL DISTRIBUTION WIDTH 14.5 % (10.0-14.5); WHITE BLOOD COUNT 10.9 10^3/uL (4.3-11.0)
--- NOTE | 2017-11-27 10:30 | Occupational Ther Daily Note ---
OT Current Status-Daily Note Subjective Pt seen in room, up in recliner, agreeable to OT. Due to procedure this morning , he would like to shower this afternoon. No pain mentioned. Appearance Alert, cooperative Mental Status/Objective Functional [place] Measure 0=Not Assessed/NA 4=Minimal Assistance 1=Total Assistance 5=Supervision or Setup 2=Maximal Assistance 6=Modified [place] 3=Moderate Assistance 7=Complete [place] ADL-Treatment Pt was left up in recliner, chair alarm on, all needs met. OT help needed for bringing along IV pole during ADLs Functional [place] Measure 0=Not Assessed/NA 4=Minimal Assistance 1=Total Assistance 5=Supervision or Setup 2=Maximal Assistance 6=Modified [place] 3=Moderate Assistance 7=Complete IndependenceIRFPAI Quality Coding Scale 6 Independent with activity with or without an assistive device 5 Patient requires set up or clean up by helper. Patient completes activity by themselves 4 Supervision or touching assist (CGA). [place] provide cues , steadying assist 3 The helper provides less than half the effort to complete the activity 2 The helper provides more than half the effort to complete the activity 1 Dependent. The helper does all the effort to complete an activity 7 Patient refused to complete or attempt activity 9 The patient did not perform the activity before the current illness or injury 88 Not attempted due to Medical conditions or safety concerns Eating (FIM): 6 (Able to feed self, open packages. Uses dentures) Eating (QC): 6 Grooming (FIM): 5 (SBA standing at sink to shave, brush teeth and dentures, comb hair. Pt had 2X slight LOB backwards. Cues for walker placement. No assistance needed with shaving) Oral Hygiene (QC): 4 (SBA) Toileting (FIM): 5 (SBA when standing to manage clothing and hygiene. Able to change briefs with setup, SBA. BSC over toilet, grab bar, FWW) Toileting Hygiene (QC): 4 Toilet/Commode Transfer (FIM): 5 (SBA getting on and off BSC over toilet. grab bar, FWW) Toilet Transfer (QC): 4 Education OT Patient Education: Progress toward Goal/Update tx plan, Purpose of tx/ functional activities, Safety issues Teaching Recipient: Patient Teaching Methods: Discussion Response to Teaching: Verbalize Understanding, Reinforcement Needed OT Short Term Goals Short Term Goals Time Frame: Nov 21, 2017 Eating(FIM): 5 Grooming(FIM): 5 Bathing(FIM): 5 Upper Body Dressing(FIM): 5 Lower Body Dressing(FIM): 5 Toileting(FIM): 5 Transfers (B,C,W/C) (FIM): 5 Toilet/Commode Transfer(FIM): 5 Shower Transfer(FIM): 5 Additional Short Term Goals: 1-Demonstrate ADL Tasks, 2-Verbalize Understanding , 3-ImproveStrength/Amanda 1=Demonstrate adherence to instructed precautions during ADL tasks. 2=Patient will verbalize/demonstrate understanding of assistive devices/ modifications for ADL. 3=Patient will improve strength/tolerance for activity to enable patient to perform ADL's. OT Health Researcher Goals Health Researcher Goals Time Frame: Dec 05, 2017 Eating (FIM): 6 Eating (QC): 6 Groomin Oral Hygiene (QC): 6 Bathing(FIM): 5 Shower/Bathe Self (QC): 5 Upper Body Dressing(FIM): 6 Upper Body Dressing (QC): 6 Lower Body Dressing(FIM): 6 Lower Body Dressing (QC): 6 On/Off Footwear (QC): 6 Toileting(FIM): 6 Toileting Hygiene (QC): 6 Transfers (B,C,W/C) (FIM): 6 Toilet/Commode Transfer(FIM): 6 Toilet/Commode Transfer (QC): 6 Shower Transfer(FIM): 5 Comprehension(FIM): 5 Expression (FIM): 5 Social Interaction(FIM): 5 Problem Solving(FIM): 4 Memory(FIM): 4 Additional Goals: 1-Demonstrate ADL Tasks, 2-Verbalize Understanding, 3- ImproveStrength/Amanda 1=Demonstrate adherence to instructed precautions during ADL tasks. 2=Patient will verbalize/demonstrate understanding of assistive devices/ modifications for ADL. 3=Patient will improve strength/tolerance for activity to enable patient to perform ADL's. OT Education/Plan Discharge Recommendations Plan/Recommendations: Continue POC Treatment Plan/Plan of Care Patient would benefit from OT for education, treatment and training to promote independence in ADL's, mobility, safety and/or upper extremity function for ADL' s. Plan of Care: ADL Retraining, Functional Mobility, Group Exercise/Act as Ind, UE Funct Exercise/Act Treatment Duration: Dec 05, 2017 Frequency: At least 5 of 7 days/Wk (IRF) Estimated Hrs Per Day: 1.5 hours per day Agreement: Yes Rehab Potential: Good Time/GCodes Start Time: 09:50 Stop Time: 10:21 Total Time Billed (hr/min): 31 Billed Treatment Time visit, 31 minutes ADL MAGDALENA OSBORN OT Nov 27, 2017 10:30
[2017-11-27 10:38] LABS: CALCIUM 8.7 MG/DL (8.5-10.1); CREATININE SERUM 1.33 MG/DL (0.60-1.30); PHOSPHORUS 2.7 MG/DL (2.3-4.7); POTASSIUM 3.9 MMOL/L (3.6-5.0)
--- NOTE | 2017-11-27 11:33 | Speech Therapy Daily Note ---
Speech Daily Progress Note Subjective Date Seen by Provider: Nov 27, 2017 Time Seen by Provider: 10:45 The patient was seated upright in recliner upon entrance. The patient greeted the clinician and was agreeable to participation in the cognitive treatment session. Objective Functional Memory Tasks were completed on this date. The patient was read a short paragraph aloud. Following the reading, the patient was asked to recall the information in the paragraph by specific questions asked by the clinician. The patient demonstrated high accuracy, completing the task with 80% accuracy with mild to moderate clinician verbal prompting. Assessment Assessment Current Status: Good Progress Treatment Plan Continue Plan of Care Communication Comprehension: 4 Expression: 4 Social Cognition Social Interaction: 4 Problem Solvin Memory: 3 Speech Short Term Goals Short Term Goals Short Term Goals 1. The patient will recall two functional memory strategies for use at home with mild clinician prompting. 2. The patient will recall three items immediately and following a five minute delay. 3. The patient will display 80% accuracy with safety problem solving and sequencing of ADL tasks. Time Frame-STG: One Week Speech Car Escort Goals Car Escort Goals 1. The patient will demonstrate improved cognitive linguistic skills for increased safety and function with ADL's in the least restrictive setting. Time Frame: Two Weeks Comprehension: 5 Expression: 5 Social Interaction: 5 Problem Solvin Memory: 4 Speech-Plan Treatment Plan Speech Therapy Treatment Plan: Continue Plan of Care Continue skilled speech pathology to target functional memory strategies. Treatment Duration: Nov 28, 2017 Frequency: Modified Program (IRF) (4 to 5 times per week.) Estimated Hrs Per Day: .5 hour per day Rehab Potential: Good Safety Risks/Education Teaching Recipient: Patient Teaching Methods: Discussion Response to Teaching: Verbalize Understanding Education Topics Provided: Functional Memory Strategies Time Speech Therapy Time In: 10:45 Speech Therapy Time Out: 11:15 Total Billed Time: 30 Billed Treatment Time VALENTINA Christopher [facility] Nov 27, 2017 11:33
--- NOTE | 2017-11-27 11:52 | Physical Therapy Daily Note ---
PT Daily Note-Current Subjective Pt laying Supine in bed upon arrival. Pt agrees to PT after CONSERVATION OR HERITAGE ARCHITECT explains that we are trying to figure out a plan that is convenient for both pt & sp since pt will be receiving IV antibiotics. Pain Location: No Pain Reported Mental Status Patient Orientation: Person, Place Attachments: IV Transfers Functional [place] Measure 0=Not Assessed/NA 4=Minimal Assistance 1=Total Assistance 5=Supervision or Setup 2=Maximal Assistance 6=Modified [place] 3=Moderate Assistance 7=Complete IndependenceIRFPAI Quality Coding Scale 6 Independent with activity with or without an assistive device 5 Patient requires set up or clean up by helper. Patient completes activity by themselves 4 Supervision or touching assist (CGA). [place] provide cues , steadying assist 3 The helper provides less than half the effort to complete the activity 2 The helper provides more than half the effort to complete the activity 1 Dependent. The helper does all the effort to complete an activity 7 Patient refused to complete or attempt activity 9 The patient did not perform the activity before the current illness or injury 88 Not attempted due to Medical conditions or safety concerns Scootin Rollin Roll Left to Right (QC): 5 Supine to/from Sit: 5 Sit to/from Stand: 5 Sit to Stand (QC): 5 Weight Bearing Right Lower Extremity: Right Full Weight Bearing Left Lower Extremity: Left Full Weight Bearing Gait Training Does the Patient Walk?: Yes Distance (FIM): 1=up to 49 ft Distance: 40' Walk 10 feet (QC): 5 Gait Level of Assist: 5 Gait Persons Needed: 1 Gait Assistive Device: FWW Pt has slow but steady gait, no LOB. Pt fatigues and gets short of SOA easily. Wheelchair Training Does the Pt Use a Wheelchair?: No Treatments CONSERVATION OR HERITAGE ARCHITECT & pt discuss pt discharge per pt request. Pt agrees to PT tx. Pt transfers from Supine to EOB to Standing using FWW at SBA. Pt ambulates to restroom and CONSERVATION OR HERITAGE ARCHITECT notices pt's brief & pants are wet. CONSERVATION OR HERITAGE ARCHITECT assists pt with donning/doffing brief & pants. Pt returns to recliner to rest. Pt still concerned with IV antibiotics and how he will be released. CONSERVATION OR HERITAGE ARCHITECT & pt again discussed. Pt resting in recliner at end of tx with all needs met. Assessment Current Status: Fair Progress Pt needs VC at times to remember to take FWW with him. Pt fatigues and gets SOA easily during activity. PT Short Term Goals Short Term Goals Time Frame: Nov 21, 2017 Transfers (B,C,W/C) (FIM): 5 Gait (FIM): 5 Distance (FIM): 3=150 ft Gait Distance Comment: 300 feet Gait Level of Assist: 5 Gait Assistive Device: FWW Stairs (FIM): 2 # of Steps: 4 Stairs Level of Assist: 4 PT Senior Living Goals Adjunct History Instructor Goals PT Senior Living Goals Time Frame: Dec 05, 2017 Transfers (B,C,W/C) (FIM): 6 Sit to Lying (QC): 6 Lying-Sitting on Side/Bed(QC): 6 Sit to Stand (QC): 6 Rollin Roll Left to Right (QC): 6 Chair/Kvl-mt-[place]es[place] Xfer(QC): 6 Car Transfer (QC): 4 Does the Patient Walk: Yes Gait (FIM): 6 Gait distance (FIM): 3=150 ft Distance: 300 feet Walk 10 feet (QC): 6 Walk 10ft-Uneven Surface(QC): 6 Walk 50ft with 2 Turns (QC): 6 Walk 150 ft (QC): 6 Gait Level of Assist: 6 Gait Assistive Device: FWW Stairs (FIM): 2 # of Steps: 4 1 Step (curb) (QC): 4 4 Steps (QC): 4 12 Steps (QC): 88 Stairs Level Of Assist: 5 Picking up an Object (QC): 5 PT Plan Problem List Problem List: Activity Tolerance, Functional Strength, Safety, Balance, Gait Treatment/Plan Treatment Plan: Continue Plan of Care Treatment Plan: Bed Mobility, Education, Functional Activity Amanda, Functional Strength, Group Therapy, Gait, Safety, Therapeutic Exercise, Transfers Treatment Duration: Dec 05, 2017 Frequency: At least 5 of 7 days/Wk (IRF) Estimated Hrs Per Day: 1.5 hours per day Patient and/or Family Agrees t: Yes Safety Risks/Education Patient Education: Transfer Techniques, Correct Positioning, Disease Process, Safety Issues Teaching Recipient: Patient Teaching Methods: Discussion Response to Teaching: Verbalize Understanding Time/GCodes Time In: 900 Time Out: 945 Total Billed Treatment Time: 45 Total Billed Treatment 1, FA x3 (45m) TYRONE OLMOS CONSERVATION OR HERITAGE ARCHITECT Nov 27, 2017 11:52
[2017-11-27] MEDS ORDERED: MERO500V3 IV (12:51)
[2017-11-27] MEDS: inSUlin Protamine/ASPart 70/30 1 UNIT/0.01 ML DOSE SC SCH (15:09)
--- NOTE | 2017-11-27 15:29 | Occupational Ther Daily Note ---
OT Current Status-Daily Note Subjective Pt seen in room, up in recliner, agreeable to OT. No pain mentioned. Appearance Alert, cooperative Mental Status/Objective Functional [place] Measure 0=Not Assessed/NA 4=Minimal Assistance 1=Total Assistance 5=Supervision or Setup 2=Maximal Assistance 6=Modified [place] 3=Moderate Assistance 7=Complete [place] ADL-Treatment Pt walked to and from bathroom with SBA for safety, FWW. IV site covered for shower. Pt was safe undressing and notified OT when he was going to watershed coordinator the shower for safety. Pt left up in recliner, all needs met, prepared for DC. Functional [place] Measure 0=Not Assessed/NA 4=Minimal Assistance 1=Total Assistance 5=Supervision or Setup 2=Maximal Assistance 6=Modified [place] 3=Moderate Assistance 7=Complete IndependenceIRFPAI Quality Coding Scale 6 Independent with activity with or without an assistive device 5 Patient requires set up or clean up by helper. Patient completes activity by themselves 4 Supervision or touching assist (CGA). [place] provide cues , steadying assist 3 The helper provides less than half the effort to complete the activity 2 The helper provides more than half the effort to complete the activity 1 Dependent. The helper does all the effort to complete an activity 7 Patient refused to complete or attempt activity 9 The patient did not perform the activity before the current illness or injury 88 Not attempted due to Medical conditions or safety concerns Bathing (FIM): 5 (Washed and dried all parts, except back. with setup and SBA for safety when standing. No LOB observed. Shower bench, grab bars, hand held shower) Shower/Bathe Self (QC): 4 Upper Body (FIM): 5 (Doffed and donned t shirt with setup) Upper Body Dressing (QC): 5 (setup) Lower Body Dressing (FIM): 5 (SBA when standing to pull pants up and push down. Able to get slipper socks off and on (setup)and get depends on without additional assistance. FWW) Lower Body Dressing (QC): 4 (SBA) On/Off Footwear (QC): 5 (setup) Shower Transfer(FIM): 5 (SBA getting in and out of shower, grab bars, shower bench) Education OT Patient Education: Progress toward Goal/Update tx plan, Safety issues Teaching Recipient: Patient Teaching Methods: Discussion Response to Teaching: Verbalize Understanding, Return Demonstration OT Short Term Goals Short Term Goals Time Frame: Nov 21, 2017 Eating(FIM): 5 Grooming(FIM): 5 Bathing(FIM): 5 Upper Body Dressing(FIM): 5 Lower Body Dressing(FIM): 5 Toileting(FIM): 5 Transfers (B,C,W/C) (FIM): 5 Toilet/Commode Transfer(FIM): 5 Shower Transfer(FIM): 5 Additional Short Term Goals: 1-Demonstrate ADL Tasks, 2-Verbalize Understanding , 3-ImproveStrength/Amanda 1=Demonstrate adherence to instructed precautions during ADL tasks. 2=Patient will verbalize/demonstrate understanding of assistive devices/ modifications for ADL. 3=Patient will improve strength/tolerance for activity to enable patient to perform ADL's. OT Promotions Executive Goals Promotions Executive Goals Time Frame: Dec 05, 2017 Eating (FIM): 6 (met) Eating (QC): 6 (met) Groomin (not met) Oral Hygiene (QC): 6 (not met) Bathing(FIM): 5 (met) Shower/Bathe Self (QC): 5 (not met) Upper Body Dressing(FIM): 6 (not met) Upper Body Dressing (QC): 6 (not met) Lower Body Dressing(FIM): 6 (not met) Lower Body Dressing (QC): 6 (not met) On/Off Footwear (QC): 6 (not met) Toileting(FIM): 6 (not met) Toileting Hygiene (QC): 6 (not met) Transfers (B,C,W/C) (FIM): 6 Toilet/Commode Transfer(FIM): 6 (not met) Toilet/Commode Transfer (QC): 6 (not met) Shower Transfer(FIM): 5 (met) Comprehension(FIM): 5 Expression (FIM): 5 Social Interaction(FIM): 5 Problem Solving(FIM): 4 Memory(FIM): 4 Additional Goals: 1-Demonstrate ADL Tasks, 2-Verbalize Understanding, 3- ImproveStrength/Amanda 1=Demonstrate adherence to instructed precautions during ADL tasks. 2=Patient will verbalize/demonstrate understanding of assistive devices/ modifications for ADL. 3=Patient will improve strength/tolerance for activity to enable patient to perform ADL's. OT Education/Plan Discharge Recommendations Plan/Recommendations: Discharge/Goals Met (see tx plan for specifics) Treatment Plan/Plan of Care Patient would benefit from OT for education, treatment and training to promote independence in ADL's, mobility, safety and/or upper extremity function for ADL' s. Plan of Care: ADL Retraining, Functional Mobility, Group Exercise/Act as Ind, UE Funct Exercise/Act Treatment Duration: Dec 05, 2017 Frequency: At least 5 of 7 days/Wk (IRF) Estimated Hrs Per Day: 1.5 hours per day Agreement: Yes Rehab Potential: Good Time/GCodes Start Time: 14:20 Stop Time: 15:05 Total Time Billed (hr/min): 45 Billed Treatment Time visit, 45 minutes ADL MAGDALENA OSBORN OT Nov 27, 2017 15:29
--- NOTE | 2017-11-27 15:31 | Physical Therapy Daily Note ---
PT Daily Note-Current Subjective Pt sitting in recliner upon arrival. Pt agrees to PT. Pain Location: No Pain Reported Mental Status Patient Orientation: Person, Place Attachments: IV Transfers Functional [place] Measure 0=Not Assessed/NA 4=Minimal Assistance 1=Total Assistance 5=Supervision or Setup 2=Maximal Assistance 6=Modified [place] 3=Moderate Assistance 7=Complete IndependenceIRFPAI Quality Coding Scale 6 Independent with activity with or without an assistive device 5 Patient requires set up or clean up by helper. Patient completes activity by themselves 4 Supervision or touching assist (CGA). [place] provide cues , steadying assist 3 The helper provides less than half the effort to complete the activity 2 The helper provides more than half the effort to complete the activity 1 Dependent. The helper does all the effort to complete an activity 7 Patient refused to complete or attempt activity 9 The patient did not perform the activity before the current illness or injury 88 Not attempted due to Medical conditions or safety concerns Scootin Rollin Roll Left to Right (QC): 5 Supine to/from Sit: 5 Sit to/from Stand: 5 Sit to Lying (QC): 5 Sit to Stand (QC): 5 Chair/Xzj-ct-Iaufn Xfer(QC): 5 Bed to/from Chair: 5 Car Transfer (QC): 5 Weight Bearing Right Lower Extremity: Right Full Weight Bearing Left Lower Extremity: Left Full Weight Bearing Gait Training Does the Patient Walk?: Yes Distance (FIM): 3=150 ft Distance: 150' Walk 10 feet (QC): 5 Walk 50 ft with 2 Turns(QC): 5 Walk 150 ft (QC): 5 Walking 10ft/uneven surface-QC: 5 Gait Level of Assist: 5 Gait Assistive Device: FWW Pt has slow but steady xochitl, no LOB. Pt needs occasional VC to stay closer to FWW while ambulating. Wheelchair Training Does the Pt Use a Wheelchair?: No Stair Training Stair Training: Handrails/: 2 handrails Stairs (FIM): 5 #of Steps: 12 1 Step (curb) (QC): 5 4 Steps (QC): 5 Stairs: Pattern: Step to Balance Special Test Comments Pt doesn't fruit or nut picker object from floor due to balance concerns. Treatments Pt transfers from recliner to standing using FWW at [facility]. Pt completes bed mobility at [facility] then transfers back to standing to ambulate in hallway using FWW at [facility]. Pt completes 3 sets of 4 stairs, walking across uneven surface for at least 10' and car transfer at [facility]. Pt returns to room to rest in recliner at end of tx with all needs met. Assessment Current Status: Good Progress Pt will fatigue and get SOA, needing rest break during activities. PT Short Term Goals Short Term Goals Time Frame: Nov 21, 2017 Transfers (B,C,W/C) (FIM): 5 Gait (FIM): 5 Distance (FIM): 3=150 ft Gait Distance Comment: 300 feet Gait Level of Assist: 5 Gait Assistive Device: FWW Stairs (FIM): 2 # of Steps: 4 Stairs Level of Assist: 4 PT Psychiatric Nursing Aide Goals Psychiatric Nursing Aide Goals PT Retirement Goals Time Frame: Dec 05, 2017 Transfers (B,C,W/C) (FIM): 6 Sit to Lying (QC): 6 Lying-Sitting on Side/Bed(QC): 6 Sit to Stand (QC): 6 Rollin Roll Left to Right (QC): 6 Chair/Zeh-nt-Iugks Xfer(QC): 6 Car Transfer (QC): 4 Does the Patient Walk: Yes Gait (FIM): 6 Gait distance (FIM): 3=150 ft Distance: 300 feet Walk 10 feet (QC): 6 Walk 10ft-Uneven Surface(QC): 6 Walk 50ft with 2 Turns (QC): 6 Walk 150 ft (QC): 6 Gait Level of Assist: 6 Gait Assistive Device: FWW Stairs (FIM): 2 # of Steps: 4 1 Step (curb) (QC): 4 4 Steps (QC): 4 12 Steps (QC): 88 Stairs Level Of Assist: 5 Picking up an Object (QC): 5 PT Plan Problem List Problem List: Activity Tolerance, Safety Treatment/Plan Treatment Plan: Continue Plan of Care Treatment Plan: Bed Mobility, Education, Functional Activity Amanda, Functional Strength, Group Therapy, Gait, Safety, Therapeutic Exercise, Transfers Treatment Duration: Dec 05, 2017 Frequency: At least 5 of 7 days/Wk (IRF) Estimated Hrs Per Day: 1.5 hours per day Patient and/or Family Agrees t: Yes Safety Risks/Education Patient Education: Gait Training, Transfer Techniques, Correct Positioning, Safety Issues Teaching Recipient: Patient Teaching Methods: Discussion Response to Teaching: Verbalize Understanding Time/GCodes Time In: 1330 Time Out: 1410 Total Billed Treatment 1, FA x2 (25m) & GT (15m) TYRONE OLMOS CARD TENDER Nov 27, 2017 15:31
[2017-11-27 15:38] VITALS: BP 127/78
--- NOTE | 2017-11-28 13:36 | Therapy Team Discharge Summary ---
Therapy Discharge Summary Discharge Recommendations Date of Discharge Nov 27, 2017 at 15:35 Therapy D/C Recommendations: Home w/ Family Support, Occupational Therapy Home Care Occupational Therapy Decreased Activ Tolerance, Decreased UE Strength, Impaired I ADL's, Impaired Self-Care Skills Speech-Language Pathology The patient was admitted to [facility] following a diagnosis of debility. Upon admission, the patient demonstrated increased confusion. While the patient reported his confusion has increased for the past year, it was thought he may be experiencing an additional increase due to his UTI. Skilled speech pathology focused on functional memory strategies, recall of safety precautions, and sequencing. The patient did not meet memory goals placed, however, did return to baseline functioning (in comparison to admit) prior to discharge. The patient's cognition fluctuated throughout his stay due to the return of his UTI. At this time, skilled speech pathology is not warranted post discharge. PT Care Home Goals Care Home Goals PT Market Development Executive Goals Time Frame: Dec 05, 2017 Transfers (B,C,W/C) (FIM): 6 Roll Left to Right (QC): 6 Sit to Lying (QC): 6 Lying-Sitting on Side/Bed(QC): 6 Sit to Stand (QC): 6 Chair/Mvo-dl-Fhmwl Xfer(QC): 6 Car Transfer (QC): 4 Does the Patient Walk: Yes Gait (FIM): 6 Gait distance (FIM): 3=150 ft Distance: 300 feet Walk 10 feet (QC): 6 Walk 10ft-Uneven Surface(QC): 6 Walk 50ft with 2 Turns (QC): 6 Walk 150 ft (QC): 6 Gait Level of Assist: 6 Gait Assistive Device: FWW Stairs (FIM): 2 # of Steps: 4 1 Step (curb) (QC): 4 4 Steps (QC): 4 12 Steps (QC): 88 Stairs Level Of Assist: 5 Picking up an Object (QC): 5 OT Market Development Executive Goals Market Development Executive Goals Time Frame: Dec 05, 2017 Eating (FIM): 6 (met) Eating (QC): 6 (met) Oral Hygiene (QC): 6 (not met) Grooming(FIM): 6 (not met) Bathing(FIM): 5 (met) Shower/Bathe Self (QC): 5 (not met) Upper Body Dressing(FIM): 6 (not met) Upper Body Dressing (QC): 6 (not met) Lower Body Dressing(FIM): 6 (not met) Lower Body Dressing (QC): 6 (not met) On/Off Footwear (QC): 6 (not met) Toileting(FIM): 6 (not met) Toileting Hygiene (QC): 6 (not met) Transfers (B,C,W/C) (FIM): 6 Toilet/Commode Transfer(FIM): 6 (not met) Toilet/Commode Transfer (QC): 6 (not met) Shower Transfer(FIM): 5 (met) Comprehension(FIM): 5 Expression (FIM): 5 Social Interaction(FIM): 5 Problem Solving(FIM): 4 Memory(FIM): 4 Additional Goals: 1-Demonstrate ADL Tasks, 2-Verbalize Understanding, 3- ImproveStrength/Amanda 1=Demonstrate adherence to instructed precautions during ADL tasks. 2=Patient will verbalize/demonstrate understanding of assistive devices/ modifications for ADL. 3=Patient will improve strength/tolerance for activity to enable patient to perform ADL's. Speech Care Home Goals Care Home Goals 1. The patient will demonstrate improved cognitive linguistic skills for increased safety and function with ADL's in the least restrictive setting. Time Frame: Two Weeks Comprehension: 5 (MET) Expression: 5 (MET) Social Interaction: 5 (MET) Problem Solvin (NOT MET) Memory: 4 (NOT MET) SOL STALLWORTH Nov 28, 2017 13:35
--- NOTE | 2017-11-28 13:37 | DISCHARGE SUMMARY ---
DATE OF SERVICE: HISTORY OF PRESENT ILLNESS: The patient is an 82-year-old retired male who lives with his spouse in [place] who was admitted via the ER to [facility] on 11/13 due to recurrent falls at home with increased confusion associated with UTI. The patient was continued on his antibiotics for UTI and has been followed by Dr. Farrell on outpatient basis for diabetic foot ulcer of the left heel and right fourth toe. His insulin was adjusted and he had contact precautions due to his ESBL UTI. Therapies were begun. He was felt to be appropriate for inpatient rehabilitation unit. This patient presented to unit with his spouse. His spouse indicates that the patient had been modified independent with a walker at home, but at night when he gets up to use the bathroom, he does not always use it. PAST MEDICAL HISTORY: VIPIN. He has CPAP at home. Macular degeneration, hypertension, GERD, insulin-dependent diabetes mellitus, COPD, atrial fibrillation, chronically anticoagulated on Coumadin, diabetic peripheral neuropathy, peripheral vascular disease, renal insufficiency, tobaccoism, BPH, recurrent falls, diabetic foot ulcers as per above. No prior replacement or spinal surgery. He is retired from the [employer] business. MEDICAL COURSE: The patient was followed by Dr. Guadalupe and PCP, Dr. Alexander while on rehab unit. He was followed by Dr. Farrell, license and permit specialist for his left heel ulcer and right fourth toe diabetic foot ulcer. Topical care, pressure relief was provided. He was afebrile during his stay. His pulse is 77 on 11/27, respirations 18, blood pressure 127/78, O2 sat 97% on room air. He was scheduled to leave on 11/24 to home with his spouse, but he had recurrent UTI requiring IV antibiotics. community action worker assisted Dr. Alexander and the patient and spouse with placement at a [facility]p unit temporarily for completion of the 10-day course of IV antibiotics. CBC on 11/27 showed WBC 10.9, H and H 12.0 and 34, platelet count 112,000. His Coumadin was held for a while due to supratherapeutic INR. It was then resumed and INR is 2.8 on 11/27. Repeat UA on 11/22 was abnormal and the patient was complaining of dysuria. The culture revealed resistance to beta-lactamase and the patient was started on meropenem 500 mg IV q.8h. The patient was seen by Dr. Ascencio regarding recurrent UTIs and frequency. The patient requested an indwelling Soriano catheter be placed. It was thought that will be placed by nursing or Dr. Ascencio. Dr. Ascencio suspects urethral stricture, but recommended doing a cystoscopy at a later time upon completion of the antibiotics and when Coumadin can be held so that anticoagulation is reversed. REHABILITATION COURSE: The patient did make some progress with therapies. He did briefly have some increased confusion when he had his recurrent UTI. Speech therapy notes upon admission, the patient was min assist for comprehension and expression, standby assist for social interaction, mod assist for problem solving and memory. Upon discharge, the patient is min assist for comprehension and expression, social interaction remains mod assist for problem solving and memory. The patient did demonstrate 80% accuracy with reading a short paragraph and then asked to recall the information on the paragraph by specific questions asked by speech therapy. OT notes upon admission, the patient was min assist for bathing, mod assist for lower body dressing, min assist for toileting, shower transfers. Upon discharge, the patient is set up for bathing, upper body dressing, min assist for lower body dressing. PT notes upon admission, the patient was min assist for transfers and gait with a front wheel walker short distances, min assist for bed mobility. Upon discharge, the patient was standby assist for transfers, bed mobility and ambulation with a front wheel walker. His Accu-Cheks were monitored. They varied between 84 and 161 from 11/26 to 11/27. Blood glucose on 11/26 was 120 and 128 on 11/27. He continued on his insulin. DISCHARGE INSTRUCTIONS: He is discharged to usp facility for ongoing IV antibiotics therapy and care. He will have followup with Dr. Alexander, Dr. Ascencio and Dr. Farrell as per their schedule. Continue current wound care. Continue current diet and Accu-Cheks. DISCHARGE MEDICATIONS: NovoLog 70/30, 20 units subcu at bedtime and 14 units subQ daily at 2 p.m., meropenem 500 mg IV q.8h. for 7 more days, fish oil 1000 mg p.o. daily, ASA 81 mg p.o. q. 1400 hours, p.o. b.i.d., Plavix 75 mg p.o. daily, digoxin 125 mcg p.o. daily, Pepcid 20 mg p.o. b.i.d., ferrous sulfate 325 mg p.o. b.i.d., furosemide 40 mg p.o. b.i.d., Krill oil 500 mg p.o. daily, losartan 25 mg p.o. daily. Lotemax 1 drop to eye t.i.d., antibiotic ointment two eyes daily, Zofran 4 mg p.o. b.i.d., KCl 40 mEq p.o. b.i.d., trospium chloride ER 50 mg p.o. daily, Coumadin 7.5 mg on Friday, Friday, Friday, Friday and 5 mg on Friday, and Friday. Follow up INR as per Dr. Alexander. Nattokinase 2000 p.o. daily. DISCHARGE DIAGNOSES: 1. Rehabilitation ambulatory dysfunction secondary to recurrent falls associated with diabetic peripheral neuropathy. 2. Diabetic foot ulcer left heel and fourth right toe managed by Dr. Farrell. 3. Urinary tract infection, recurrent on another course of IV antibiotics as per above with contact precautions. 4. Skin breakdown, both knees due to recurrent falls, healed. 5. Type 2 diabetes mellitus, insulin-dependent with diabetic chronic kidney disease. 6. Obstructive sleep apnea, on home CPAP. 7. Chronic, kidney disease stage III. 8. Chronic obstructive pulmonary disease. 9. Atrial fibrillation, chronically anticoagulated on Coumadin. 10. Hypertension, controlled with medication. 11. Gastroesophageal reflux disease without esophagitis, chronic. 12. Mild dementia. 13. Urethral stricture. 14. Neurogenic bladder with some retention. PROGNOSIS: Rehab prognosis appears fair for some continued improvement at usp unit; however, due to his age, multiple comorbidities, history of falls, recurrent UTIs, he may benefit from more formal assisted living setting upon discharge from usp unit. Job ID: [id number] DocumentID: [id number] Dictated Date: 11/27/2017 16:34:49 Commission Agent Livestock Date: 11/28/2017 13:36:28 Dictated By: TRINITY GUADALUPE MD
--- NOTE | 2017-11-28 16:43 | Therapy Team Discharge Summary ---
Therapy Discharge Summary Discharge Recommendations Date of Discharge Nov 27, 2017 at 15:35 Therapy D/C Recommendations: Home w/ Family Support, Occupational Therapy Home Care Occupational Therapy Pt was seen for skilled OT to increase his independence in basic self care to allow zander to safely return home and to decrease caregiver burden. On admission he needed min assist with bathing, toileting and toilet/shower transfers and mod assist with lower body dressing. By discharge he was modified independent with eating and SBA/setup for all basic ADLs. Equipment used included FWW, BSC over toilet, shower bench, grab bars, hand held shower. Activity limited by decreased activity tolerance. See tx plan for goals met. Pt discharged to skilled unit for IV antibiotics. Would benefit from continued OT. DC OT Decreased Activ Tolerance, Decreased UE Strength, Impaired I ADL's, Impaired Self-Care Skills PT Debt Collector Goals Intermediate Goals PT Intermediate Goals Time Frame: Dec 05, 2017 Transfers (B,C,W/C) (FIM): 6 Roll Left to Right (QC): 6 Sit to Lying (QC): 6 Lying-Sitting on Side/Bed(QC): 6 Sit to Stand (QC): 6 Chair/Glk-xa-Jkpav Xfer(QC): 6 Car Transfer (QC): 4 Does the Patient Walk: Yes Gait (FIM): 6 Gait distance (FIM): 3=150 ft Distance: 300 feet Walk 10 feet (QC): 6 Walk 10ft-Uneven Surface(QC): 6 Walk 50ft with 2 Turns (QC): 6 Walk 150 ft (QC): 6 Gait Level of Assist: 6 Gait Assistive Device: FWW Stairs (FIM): 2 # of Steps: 4 1 Step (curb) (QC): 4 4 Steps (QC): 4 12 Steps (QC): 88 Stairs Level Of Assist: 5 Picking up an Object (QC): 5 OT Intermediate Goals Intermediate Goals Time Frame: Dec 05, 2017 Eating (FIM): 6 (met) Eating (QC): 6 (met) Oral Hygiene (QC): 6 (not met) Grooming(FIM): 6 (not met) Bathing(FIM): 5 (met) Shower/Bathe Self (QC): 5 (not met) Upper Body Dressing(FIM): 6 (not met) Upper Body Dressing (QC): 6 (not met) Lower Body Dressing(FIM): 6 (not met) Lower Body Dressing (QC): 6 (not met) On/Off Footwear (QC): 6 (not met) Toileting(FIM): 6 (not met) Toileting Hygiene (QC): 6 (not met) Transfers (B,C,W/C) (FIM): 6 Toilet/Commode Transfer(FIM): 6 (not met) Toilet/Commode Transfer (QC): 6 (not met) Shower Transfer(FIM): 5 (met) Comprehension(FIM): 5 (MET) Expression (FIM): 5 (MET) Social Interaction(FIM): 5 (MET) Problem Solving(FIM): 4 (NOT MET) Memory(FIM): 4 (NOT MET) Additional Goals: 1-Demonstrate ADL Tasks, 2-Verbalize Understanding, 3- ImproveStrength/Amanda 1=Demonstrate adherence to instructed precautions during ADL tasks. 2=Patient will verbalize/demonstrate understanding of assistive devices/ modifications for ADL. 3=Patient will improve strength/tolerance for activity to enable patient to perform ADL's. Speech Intermediate Goals Debt Collector Goals 1. The patient will demonstrate improved cognitive linguistic skills for increased safety and function with ADL's in the least restrictive setting. Time Frame: Two Weeks Comprehension: 5 (MET) Expression: 5 (MET) Social Interaction: 5 (MET) Problem Solvin (NOT MET) Memory: 4 (NOT MET) MAGDALENA OSBORN OT Nov 28, 2017 16:43
== END 2017-11-27 15:35 | disposition home health service (06) | DRG 74 ==
LOC: EDPENDDISTM 11-27 13:00 → EDPENDDISDT 11-27 13:00
PROVIDERS: ADMIT Physical Medicine & Rehabilitation; ATTEND Physical Medicine & Rehabilitation
DX: E11.42 Type 2 diabetes mellitus with diabetic polyneuropathy (principal); N39.0 Urinary tract infection, site not specified; E11.621 Type 2 diabetes mellitus with foot ulcer; L97.429 Non-pressure chronic ulcer of left heel and midfoot with unspecified severity; L97.519 Non-pressure chronic ulcer of other part of right foot with unspecified severity; E11.22 Type 2 diabetes mellitus with diabetic chronic kidney disease; I12.9 Hypertensive chronic kidney disease with stage 1 through stage 4 chronic kidney disease, or unspecified chronic kidney disease; N18.3 Chronic kidney disease, stage 3 (moderate); J44.9 Chronic obstructive pulmonary disease, unspecified; G47.33 Obstructive sleep apnea (adult) (pediatric); I48.91 Unspecified atrial fibrillation; F03.90 Unspecified dementia, unspecified severity, without behavioral disturbance, psychotic disturbance, mood disturbance, and anxiety; F17.210 Nicotine dependence, cigarettes, uncomplicated; R29.6 Repeated falls; S80.211D Abrasion, right knee, subsequent encounter; S80.212D Abrasion, left knee, subsequent encounter; W19.XXXD Unspecified fall, subsequent encounter; Z16.12 Extended spectrum beta lactamase (ESBL) resistance; B96.5 Pseudomonas (aeruginosa) (mallei) (pseudomallei) as the cause of diseases classified elsewhere; B96.20 Unspecified Escherichia coli [E. coli] as the cause of diseases classified elsewhere; N17.9 Acute kidney failure, unspecified; B96.4 Proteus (mirabilis) (morganii) as the cause of diseases classified elsewhere; N31.9 Neuromuscular dysfunction of bladder, unspecified; N35.9 Urethral stricture, unspecified
CPT/HCPCS: 36415; 36569; 71045; 76937; 80048; 80069; 81000; 82962; 85025; 85610; 87077; 87088; 87186

== ENCOUNTER → 2017-12-03 | Outpatient (CLI) | payer MEDICARE, BC ==
[~2017-12-03] MED LIST changes: +INSA70301U SC; +MERO500V3 IV; +OMG1KC PO
== END ==
LOC: WOUNDCARE 09:30
PROVIDERS: ATTEND Surgery
DX: E11.621 Type 2 diabetes mellitus with foot ulcer (principal); L97.422 Non-pressure chronic ulcer of left heel and midfoot with fat layer exposed; I70.244 Atherosclerosis of native arteries of left leg with ulceration of heel and midfoot; E11.42 Type 2 diabetes mellitus with diabetic polyneuropathy
CPT/HCPCS: 11042

== ENCOUNTER → 2017-12-05 | Outpatient (CLI) | payer MEDICARE, BC | LOC: SDC 16:22 | PROVIDERS: ATTEND Family Medicine | DX: N39.0 Urinary tract infection, site not specified (principal); Z16.12 Extended spectrum beta lactamase (ESBL) resistance ==

== ENCOUNTER 2017-12-06 06:20 | Emergency (ER) | payer MEDICARE, BC ==
[~2017-12-06] VITALS: Ht 177.8 cm; Wt 100.0 kg
--- NOTE | 2017-12-06 06:46 | ED Fall/Injury ---
General Chief Complaint: Trauma-Non Activation Stated Complaint: FALL-HEAD LAC Nursing Triage Note: FALL WHILE BENDING OVER Source: patient, caregiver Exam Limitations: no limitations History of Present Illness Date Seen by Provider: Dec 06, 2017 Time Seen by Provider: 06:30 Initial Comments Patient presents to the ER by private conveyance from [facility] where he is finishing up a short stay where he was receiving IV antibiotics for a UTI. He got his PICC line removed last night after his last dose of antibiotics. This morning he dropped his call light down beside the bed so he got up on the side of the bed and stooped over to pick it up and fell forward striking the right side of his head just above the eyebrow. He did not lose consciousness but he did open up a gash in his eyebrow it has been bleeding because he is on warfarin for atrial fibrillation. He is not having any pain elsewhere. He does not have any nausea, dysuria, shortness of breath, cough, chest pain, belly pain , diarrhea. Location Injury Occurred: HOME Allergies and Home Medications Allergies Coded Allergies: sulfamethoxazole (Verified Allergy, Mild, RASH, 11/13/17) trimethoprim (Verified Allergy, Mild, RASH, 11/13/17) Home Medications Aspirin 81 Mg Tablet.dr, 81 MG PO 1400, (Reported) Carvedilol 12.5 Mg Tablet, 18.75 MG PO BID, (Reported) TAKES 1 & 1/2 (12.5MG) TABLETS Clopidogrel Bisulfate 75 Mg Tablet, 75 MG PO DAILY, (Reported) Digoxin 125 Mcg Tablet, 125 MCG PO DAILY, (Reported) Famotidine 20 Mg Tablet, 20 MG PO BID, (Reported) Ferrous Sulfate 325 Mg Tablet, 325 MG PO BID, (Reported) ON HOLD WHILE PATIENT IS ON ANTIBIOTIC Furosemide 20 Mg Tablet, 40 MG PO 0800,1400, (Reported) TAKES 2 (20 MG) TABLETS Insuln Asp Prt/Insulin Aspart 1 Unit/0.01 Ml Susp, 20 UNIT SC HS Prescribed by: TRINITY COLBERT on 11/21/17831 Insuln Asp Prt/Insulin Aspart 1 Unit/0.01 Ml Susp, 14 UNIT SC DAILY@1400 Prescribed by: TRINITY COLBERT on 11/21/17831 Krill Oil 500 Mg Capsule, 500 MG PO DAILY, (Reported) Losartan Potassium 25 Mg Tablet, 25 MG PO DAILY, (Reported) Loteprednol Etabonate 5 Gm Drops.gel, 1 DROP OP TID, (Reported) 14 DAY SUPPLY FILLED 11-04-17 Meropenem 500 Mg Vial, 500 MG IV Q8H Prescribed by: RUBEN SANCHEZ on 11/27/17 1251 [place]/Polymyx B Sulf/Dexameth 3.5 Gm Oint...g., OP UD, (Reported) APPLY 1/4 INCH RIBBON TWICE DAILY X 14 DAYS FILLED 11-04-17 [place] 3 Polyunsat Fatty Acids 1,000 Mg Cap, 1,000 MG PO DAILY@0700 Prescribed by: TRINITY COLBERT on 11/21/17 0832 Ondansetron HCl 4 Mg Tab, 4 MG PO BID, (Reported) TAKE BEFORE TAKING DOXYCYCLINE (#10 TABS FILLED 11-12-17) Potassium Chloride 20 Meq Tab.er.prt, 40 MEQ PO BID, (Reported) TAKES 2 (20MEQ) TABLETS Trospium Chloride 60 Mg Cap.er.24h, 60 MG PO DAILY, (Reported) Warfarin Sodium 5 Mg Tablet, 7.5 MG PO SuMoWeFr, (Reported) TAKES 1 & 1/2 (5MG) TABLETS Warfarin Sodium 5 Mg Tablet, 5 MG PO TuThSa, (Reported) [nattokinase] , 2,000 PO DAILY, (Reported) Patient Home Medication List Home Medication List Reviewed: Yes Constitutional: No chills, No diaphoresis, No fever, No malaise Eyes: Denies Blindness, Denies Blurred Vision Ears, Nose, Mouth, Throat: denies ear pain, denies ear discharge Respiratory: No cough, No short of breath Cardiovascular: No chest pain, No palpitations Gastrointestinal: No abdominal pain, No constipation, No diarrhea, No nausea Genitourinary: No discharge, No dysuria Musculoskeletal: No back pain, No joint pain Skin: see HPI, No pruritus, No rash Past Mkdzqqo-Dxryur-Insrjm Hx Patient Social History Alcohol Use: Denies Use Recreational Drug Use: No Smoking Status: Former Smoker Type Used: Cigarettes Former Smoker, Quit: Aug 20, 2005 2nd Hand Smoke Exposure: No Recent Foreign Travel: No Contact w/Someone Who Travel: No Recent Hopitalizations: No Immunizations Up To Date Tetanus Booster (TDap): Less than 5yrs PED Vaccines UTD: No Date of Pneumonia Vaccine: Aug 28, 2016 Date of Influenza Vaccine: Jul 16, 2017 Seasonal Allergies Seasonal Allergies: No Surgeries History of Surgeries: Yes (CATARACTS, CARPAL TUNNEL, BILAT.THUMBS) Surgeries: Eye Surgery, Orthopedic, Prostatectomy, Tonsillectomy, Vascular Surgery Respiratory History of Respiratory Disorde: Yes (CPAP AT HS; ACUTE ON CHRONIC RESPIRATORY FAILURE) Respiratory Disorders: Pneumonia, Sleep Apnea, COPD Currently Using CPAP: Yes Currently Using BIPAP: No Cardiovascular History of Cardiac Disorders: Yes Cardiac Disorders: Atrial Fibrillation, High Cholesterol, Hypertension Neurological History of Neurological Disord: Yes (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) Neurological Disorders: Neuropathy Reproductive System Hx Reproductive Disorders: No Sexually Transmitted Disease: No HIV/AIDS: No Genitourinary History of Genitourinary Disor: Yes (CHRONIC ADLER/TURP) Genitourinary Disorders: Benign Prostatic Hyperpl, Renal Failure, UTI-Chronic Gastrointestinal History of Gastrointestinal Di: No Gastrointestinal Disorders: Gastroesophageal Reflux, Chronic Constipation Musculoskeletal History of Musculoskeletal Dis: Yes (GENERALIZED WEAKNESS ) Endocrine History of Endocrine Disorders: Yes Endocrine Disorders: Diabetes, Insulin dep HEENT History of HEENT Disorders: Yes HEENT Disorders: Cataract, Macular Degeneration Hearing Impairment: Hard of Hearing Cancer History of Cancer: Yes (BASAL CELL CARCINOMA) Cancer: Skin Did You Recieve Any Treatments: No Psychosocial History of Psychiatric Problem: Yes Behavioral Health Disorders: Sleep Difficulties Integumentary History of Skin or Integumenta: Yes (CELLULITIS IN LEFT KNEE EARLY OCTOBER 2013) Skin/Integumentary Disorders: Recent Skin Changes Blood Transfusions History of Blood Disorders: No Adverse Reaction to a Blood Tr: No Family Medical History Significant Family History: Cancer Family Medial History: COPD 19 FATHER Colon cancer 19 MOTHER Diabetes mellitus G8 SISTER Drug abuse G8 SISTER Lung cancer 19 FATHER Polio G8 BROTHER Sarcoidosis G8 BROTHER Physical Exam Vital Signs Vital Signs - First Documented 12/06/17 06:30 Temp 97.5 Pulse 99 Resp 18 B/P (MAP) 162/91 (114) Pulse Ox 93 O2 Delivery Room Air Capillary Refill : General Appearance: WD/WN, no apparent distress HEENT: PERRL/EOMI, normal ENT inspection, TMs normal, pharynx normal, other ( negative for lassiter sign or raccoon eyes) Neck: non-tender, full range of motion, supple, normal inspection Cardiovascular: normal peripheral pulses, regular rate, rhythm Respiratory: chest non-tender, lungs clear, normal breath sounds, no respiratory distress, no accessory muscle use Peripheral Pulses: 2+ Radial Pulses (R), 2+ Radial Pulses (L) Gastrointestinal: non tender, soft Extremities: normal inspection, normal capillary refill 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, no motor/sensory deficits, alert, normal mood/affect, oriented x 3 Skin: ecchymosis (various stages of healing on all 4 extremities), other (1/2 cm linear laceration in the right eyebrow) Mallory Coma Score Best Eye Response: (4) Open Spontaneously Best Verbal Response: (5) Oriented Best Motor Response: (6) Obeys Commands Mallory Total: 15 Date of ETT Placement: Oct 13, 2016 Time of ETT Placement: 2129 Laceration Repair : Other Wound Location right lateral eyebrow Wound Length (cm): 2 Wound's Depth, Shape: linear Wound Explored: clean Irrigated w/ Saline (ccs): 100 Betadine Prep?: Yes (chlorhexidine) Anesthesia: Lidocaine w/ Epi Volume Anesthetic (ccs): 2 Wound Debrided: minimal Suture: Ethlion Suture Size: 4-0 Number of Sutures: 4 Progress Patient's wound was cleaned thoroughly with chlorhexidine soap water and gauze. Because of his warfarin usage the wound was having a steady stream of blood. 2 cc of 1% lidocaine with epinephrine was infiltrated in the usual fashion. 2 [id number] sutures were placed approximating the skin edges and 2 simple sutures were placed. There are still a little bit of bruising and some cyanoacrylate was used to staunch the flow. Hemostasis was obtained. Patient tolerated the procedure well. Gauze dressing was applied. Progress/Results/Core Measures Results/Orders Lab Results Laboratory Tests Test 12/06/17 06:38 12/06/17 06:45 Range/Units Glucometer 119 H 70-110 MG/DL White Blood Count 9.3 4.3-11.0 10^3/uL Red Blood Count 4.34 L 4.35-5.85 10^6/uL Hemoglobin 13.2 L 13.3-17.7 G/DL Hematocrit 37 L 40-54 % Mean Corpuscular Volume 86 80-99 FL Mean Corpuscular Hemoglobin 30 25-34 PG Mean Corpuscular Hemoglobin Concent 36 32-36 G/DL Red Cell Distribution Width 14.7 H 10.0-14.5 % Platelet Count 155 130-400 10^3/uL Mean Platelet Volume 10.5 H 7.4-10.4 FL Prothrombin Time 21.7 H 12.2-14.7 SEC INR Comment 1.9 H 0.8-1.4 Activated Partial Thromboplast Time 46 H 24-35 SEC Sodium Level 136 135-145 MMOL/L Potassium Level 3.8 3.6-5.0 MMOL/L Chloride Level 103 98-107 MMOL/L Carbon Dioxide Level 25 21-32 MMOL/L Anion Gap 8 5-14 MMOL/L Blood Urea Nitrogen 20 H 7-18 MG/DL Creatinine 1.21 0.60-1.30 MG/DL Estimat Glomerular Filtration Rate 58 BUN/Creatinine Ratio 17 Glucose Level 130 H 70-105 MG/DL Calcium Level 8.8 8.5-10.1 MG/DL My Orders Orders - FARZAD BAE Basic Metabolic Panel (12/06/17 06:39) Cbc No Diff (12/06/17 06:39) Protime With Inr (12/06/17 06:39) Partial Thromboplastin Time (12/06/17 06:39) Ct Head/Cervical Spine Wo (12/06/17 06:39) Saline Lock/Iv-Start (12/06/17 06:57) Saline Lock/Iv-Start (12/06/17 06:58) Lidocaine/Epi 2% 1:100,000 (Xylocaine/Ep (12/06/17 07:48) Medications Given in ED Current Medications Medications Dose Ordered Sig/Nidhi Route Start Time Stop Time Status Last Admin Dose Admin Lidocaine/ Epinephrine 20 ml STK-MED ONCE .ROUTE 12/06/17 07:48 12/06/17 07:52 DC 12/06/17 08:00 10 ML Vital Signs/I&O Vital Sign - Last 12Hours 12/06/17 06:30 Temp 97.5 Pulse 99 Resp 18 B/P (MAP) 162/91 (114) Pulse Ox 93 O2 Delivery Room Air Diagnostic Imaging Diagonstic Imaging: CT (without contrast) Plain Films/CT/US/NM/MRI: c-spine, head Comments No intracranial hemorrhage, mass effect, midline shift or tumor noted. Stat read read: shows no CT findings of fracture or subluxation of the C-spine. Reviewed: Reviewed by Me Departure Impression Impression: Primary Impression: Fall Qualified Codes: W19.XXXA - Unspecified fall, initial encounter Additional Impression: Laceration of eyebrow, right Qualified Codes: S01.111A - Laceration without foreign body of right eyelid and periocular area, initial encounter Disposition: 01 HOME, SELF-CARE Condition: Improved Departure-Patient Inst. Decision time for Depature: 08:29 Referrals: RUBEN SANCHEZ MD (PCP/Family) Primary Care Physician Patient Instructions: Laceration Repair With Stitches (DC) Add. Discharge Instructions: Plan to have her sutures out in 5-7 days. You can come back to the ER and will take them out at no extra charge. If he started to have chills nausea or vomiting follow-up with your doctor. Keep the wound clean with regular soap and water running over it when you bathe. Use a dressing and change it as necessary. You can apply direct pressure if it continues to ooze. All discharge instructions reviewed with patient and/or family. Voiced understanding. FARZAD BAE Dec 06, 2017 06:46
[2017-12-06 07:01] LABS: HEMOGLOBIN 13.2 G/DL (13.3-17.7); MEAN PLATELET VOLUME 10.5 FL (7.4-10.4); RED BLOOD COUNT 4.34 10^6/uL (4.35-5.85); RED CELL DISTRIBUTION WIDTH 14.7 % (10.0-14.5); WHITE BLOOD COUNT 9.3 10^3/uL (4.3-11.0)
[2017-12-06 07:18] LABS: CALCIUM 8.8 MG/DL (8.5-10.1); CREATININE SERUM 1.21 MG/DL (0.60-1.30); POTASSIUM 3.8 MMOL/L (3.6-5.0)
[2017-12-06 07:22] LABS: INR 1.9 (0.8-1.4); PROTHROMBIN TIME PATIENT 21.7 SEC (12.2-14.7)
[2017-12-06] MEDS ORDERED: LIDOCAINE/EPI 2% 1:100,00 (XYLOCAINE) 20 ML VIAL ONE (07:48)
[2017-12-06 08:35] VITALS: BP 162/91
--- NOTE | 2017-12-06 08:48 | Diagnostic Imaging Report ---
PROCEDURE: CT head and CT cervical spine without contrast. TECHNIQUE: Multiple contiguous axial images were obtained through the brain and cervical spine without the use of intravenous contrast. Sagittal and coronal reformations through the cervical spine were then performed. INDICATION: Fall. COMPARISON: CT head and cervical spine without contrast 11/13/2017. FINDINGS: CT head: Advanced generalized cerebral and cerebellar parenchymal volume loss. Advanced leukoaraiosis. No intracranial hemorrhage, mass effect, hydrocephalus or extra-axial fluid collection. No CT evidence of acute infarction. Intracranial vascular calcifications. Mild polypoid mucosal thickening in the maxillary sinuses. Mastoids are clear. Osseous structures are intact. CT cervical spine: Normal alignment. Vertebral body heights preserved. No fractures. Moderate diffuse degenerative endplate changes and facet arthropathy. No evidence of high-grade spinal canal narrowing on this noncontrast exam. Diffuse mild to moderate neural foraminal narrowing. Moderate atherosclerotic calcifications in the carotid bifurcations. IMPRESSION: No acute intracranial or cervical spine CT findings. Chronic findings as above. Dictated by: Dictated on workstation # [id number]
== END 2017-12-06 08:35 | disposition home or self-care (01) ==
LOC: EDUNIT# 06:20 → ER 06:22
DX: S01.111A Laceration without foreign body of right eyelid and periocular area, initial encounter (principal); R40.2142 Coma scale, eyes open, spontaneous, at arrival to emergency department; R40.2252 Coma scale, best verbal response, oriented, at arrival to emergency department; R40.2362 Coma scale, best motor response, obeys commands, at arrival to emergency department; E11.40 Type 2 diabetes mellitus with diabetic neuropathy, unspecified; K21.9 Gastro-esophageal reflux disease without esophagitis; N40.1 Benign prostatic hyperplasia with lower urinary tract symptoms; I48.91 Unspecified atrial fibrillation; E78.00 Pure hypercholesterolemia, unspecified; I10 Essential (primary) hypertension; J44.9 Chronic obstructive pulmonary disease, unspecified; G47.30 Sleep apnea, unspecified; Z90.89 Acquired absence of other organs; Z85.828 Personal history of other malignant neoplasm of skin; Z90.79 Acquired absence of other genital organ(s); Z87.891 Personal history of nicotine dependence; Z79.01 Long term (current) use of anticoagulants; Z79.4 Long term (current) use of insulin; Z79.82 Long term (current) use of aspirin; Z88.2 Allergy status to sulfonamides; Z88.1 Allergy status to other antibiotic agents; W01.10XA Fall on same level from slipping, tripping and stumbling with subsequent striking against unspecified object, initial encounter; Y92.009 Unspecified place in unspecified non-institutional (private) residence as the place of occurrence of the external cause
CPT/HCPCS: 12011; 36415; 70450; 72125; 80048; 82962; 85027; 85610; 85730

== ENCOUNTER → 2017-12-06 | Outpatient (CLI) | payer MEDICARE, BC ==
[2017-12-06 07:02] LABS: BILIRUBIN,URINE NEGATIVE (NEGATIVE); CLARITY,URINE SLIGHTLY CLOUDY; COLOR,URINE YELLOW; GLUCOSE, URINE (UA) 2+ (NEGATIVE); KETONES,URINE NEGATIVE (NEGATIVE); LEUKOCYTE ESTERASE ,URINE 1+ (NEGATIVE); NITRITE,URINE NEGATIVE (NEGATIVE); PH,URINE 6 (5-9); PROTEIN,URINE 4+ (NEGATIVE); UROBILINOGEN,URINE NORMAL (NORMAL)
[2017-12-06 07:33] LABS: RBC,URINE 25-50 /HPF
[2017-12-06 07:34] LABS: BACTERIA,URINE NEGATIVE /HPF; WBC,URINE 0-2 /HPF
[2017-12-06 07:38] LABS: HYALINE CASTS, URINE 0-2 /LPF
--- NOTE | 2017-12-11 11:33 | Physician Query-Final Dx ---
DAVID KOHLER 12/11/17 1133: Clinic Account Progress/Dx Physician Query: Please give diagnosis Date of Service Dec 06, 2017 at 06:44 RUBEN SANCHEZ MD 12/15/17 0048: Clinic Account Progress/Dx Physician Query: Please give diagnosis DIAGNOSIS: Diagnosis urinary frequency recurrent urinary tract infection DAVID KOHLER Dec 11, 2017 11:33 RUBEN SANCHEZ MD Dec 15, 2017 00:48
== END ==
LOC: LABNPT 06:44
PROVIDERS: ATTEND Family Medicine
DX: R35.0 Frequency of micturition (principal); Z87.440 Personal history of urinary (tract) infections
CPT/HCPCS: 81000

== ENCOUNTER → 2017-12-10 | Outpatient (CLI) | payer MEDICARE, BC | LOC: WOUNDCARE 09:28 | PROVIDERS: ATTEND Surgery | DX: E11.621 Type 2 diabetes mellitus with foot ulcer (principal); I70.244 Atherosclerosis of native arteries of left leg with ulceration of heel and midfoot; L97.422 Non-pressure chronic ulcer of left heel and midfoot with fat layer exposed; E11.42 Type 2 diabetes mellitus with diabetic polyneuropathy | CPT/HCPCS: 11042 ==

== ENCOUNTER → 2017-12-17 | Outpatient (CLI) | payer MEDICARE, BC | LOC: WOUNDCARE 09:29 | PROVIDERS: ATTEND Surgery | DX: E11.621 Type 2 diabetes mellitus with foot ulcer (principal); I70.244 Atherosclerosis of native arteries of left leg with ulceration of heel and midfoot; L97.422 Non-pressure chronic ulcer of left heel and midfoot with fat layer exposed; E11.42 Type 2 diabetes mellitus with diabetic polyneuropathy | CPT/HCPCS: 99212 ==

== ENCOUNTER → 2017-12-17 | Outpatient (CLI) | payer MEDICARE, BC ==
--- NOTE | 2017-12-17 18:23 | Diagnostic Imaging Report ---
INDICATION: Followup from prior abnormal scrotal ultrasound which was obtained for left scrotal pain. TECHNIQUE: Real-time grayscale sonographic imaging and color vascular evaluation of both testicles was performed. CORRELATION STUDY: 07/30/2017 FINDINGS: RIGHT testicle measures 4.0 x 1.8 x 3.5 cm. LEFT testicle measures 3.7 x 2.8 x 2.8 cm. The testicles appearing unremarkable with normal echotexture. Color flow demonstrated to both testicles. Small cyst left epididymis is present at 5 mm in size. Right-sided hydrocele is present. Two small hypoechoic areas within the hydrocele appear generally stable. A previously noted complicated region with the lesion above the left testicle on prior study is not visualized on followup. IMPRESSION: 1. Right-sided hydrocele present with two hypoechoic areas remaining. The findings are nonspecific but could be owing to perhaps prior traumatic changes. A previously noted more complex area in the left supratesticular region is no longer demonstrated. Dictated by: Dictated on workstation # [id number]
== END ==
LOC: RAD 12:29
PROVIDERS: ATTEND Specialist
DX: N43.3 Hydrocele, unspecified (principal)
CPT/HCPCS: 76870

== ENCOUNTER → 2018-02-04 | Outpatient (CLI) | payer MEDICARE, BC ==
[~2018-02-04] MED LIST changes: +DOCU100C37 PO; +GFCD10B PO; +POLY17PO6 PO; +RANI150T11 PO
== END ==
LOC: WOUNDCARE 14:08
PROVIDERS: ATTEND Surgery
DX: E11.621 Type 2 diabetes mellitus with foot ulcer (principal); I70.244 Atherosclerosis of native arteries of left leg with ulceration of heel and midfoot; L97.422 Non-pressure chronic ulcer of left heel and midfoot with fat layer exposed; E11.42 Type 2 diabetes mellitus with diabetic polyneuropathy; N18.3 Chronic kidney disease, stage 3 (moderate)
CPT/HCPCS: 11042; 87070; 87075; 87077; 87186; 87205

== ENCOUNTER → 2018-02-11 | Outpatient (CLI) | payer MEDICARE, BC | LOC: WOUNDCARE 10:36 | PROVIDERS: ATTEND Surgery | DX: E11.621 Type 2 diabetes mellitus with foot ulcer (principal); I70.244 Atherosclerosis of native arteries of left leg with ulceration of heel and midfoot; L97.422 Non-pressure chronic ulcer of left heel and midfoot with fat layer exposed; E11.42 Type 2 diabetes mellitus with diabetic polyneuropathy; N18.3 Chronic kidney disease, stage 3 (moderate) | CPT/HCPCS: 11042 ==

== ENCOUNTER → 2018-02-18 | Outpatient (CLI) | payer MEDICARE, BC | LOC: WOUNDCARE 10:04 | PROVIDERS: ATTEND Surgery | DX: E11.621 Type 2 diabetes mellitus with foot ulcer (principal); E11.42 Type 2 diabetes mellitus with diabetic polyneuropathy; L97.422 Non-pressure chronic ulcer of left heel and midfoot with fat layer exposed; I70.244 Atherosclerosis of native arteries of left leg with ulceration of heel and midfoot; N18.3 Chronic kidney disease, stage 3 (moderate) | CPT/HCPCS: 99212 ==

== ENCOUNTER 2018-04-07 07:43 | Inpatient (IN) | payer MEDICARE, BC ==
[~2018-04-07] VITALS: Ht 180.3 cm; Wt 96.8 kg
[~2018-04-07 07:43] MED LIST changes: -IPRA3AMP IH; -IPRA3AMP NEB; +IPRA3AMP31 IH; +IPRA3AMP31 NEB
[2018-04-07] MEDS ORDERED: RT-ALBUTEROL/IPRATROPIUM 3 ML (DUONEB) VIAL ONE (07:53)
--- NOTE | 2018-04-07 07:57 | ED Respiratory ---
General Stated Complaint: RESP DISTRESS Source: patient, [facility] records, caregiver Exam Limitations: no limitations History of Present Illness Date Seen by Provider: Apr 07, 2018 Time Seen by Provider: 07:48 Initial Comments Patient presents to the ER by private conveyance from [facility] [place] with chief complaint of shortness of breath starting late last night. His sats were 81% and he was on 5 L oxygen. He has a history of COPD and acute respiratory failure with hypoxia but no breathing treatments are ordered and he has not received any at the [facility]. He says he is not having any chest pain just his normal neuropathy pain in his hands and feet. He's had some fevers and chills and productive cough. He has no nausea. He is on aspirin and Plavix and warfarin. He has a history of atrial fibrillation. Allergies and Home Medications Allergies Coded Allergies: sulfamethoxazole (Verified Allergy, Mild, RASH, 11/13/17) trimethoprim (Verified Allergy, Mild, RASH, 11/13/17) Home Medications Aspirin 81 Mg Tablet.dr, 81 MG PO 1400, (Reported) Carvedilol 12.5 Mg Tablet, 18.75 MG PO BID, (Reported) TAKES 1 & 1/2 (12.5MG) TABLETS Clopidogrel Bisulfate 75 Mg Tablet, 75 MG PO DAILY, (Reported) Digoxin 125 Mcg Tablet, 125 MCG PO DAILY, (Reported) Docusate Sodium 100 Mg Capsule, 100 MG PO BID, (Reported) Ferrous Sulfate 325 Mg Tablet, 325 MG PO BID, (Reported) Guaifenesin/Codeine 10 Ml Syrp, 5 ML PO Q4H PRN for cough Prescribed by: RUBEN SANCHEZ on 03/18/18 1051 Insuln Asp Prt/Insulin Aspart 300 Units/3 Ml Solution, 14 UNITS SQ DAILY, ( Reported) Insuln Asp Prt/Insulin Aspart 300 Units/3 Ml Solution, 20 UNITS SQ HS, (Reported ) Losartan Potassium 50 Mg Tablet, 50 MG PO DAILY, (Reported) [place] 3 Polyunsat Fatty Acids 1,000 Mg Cap, 1,000 MG PO DAILY, (Reported) Polyethylene Glycol 3350 17 Gm Powd.pack, 17 GM PO DAILY, (Reported) Potassium Chloride 20 Meq Tab.er.prt, 20 MEQ PO DAILY, (Reported) Ranitidine HCl 150 Mg Tablet, 150 MG PO BID, (Reported) Trospium Chloride 60 Mg Cap.er.24h, 60 MG PO DAILY, (Reported) Warfarin Sodium 5 Mg Tablet, 7.5 MG PO SuMoWeFrSa, (Reported) TAKES 1 & 1/2 (5MG) TABLETS Warfarin Sodium 5 Mg Tablet, 5 MG PO TuTh, (Reported) Patient Home Medication List Home Medication List Reviewed: Yes Review of Systems Constitutional: chills, diaphoresis, fever, malaise, weakness EENTM: No ear discharge, No hearing loss, No ear pain Respiratory: cough, phlegm, short of breath, wheezing Cardiovascular: No chest pain, No palpitations, No syncope; other (afib) Gastrointestinal: No abdominal pain, No constipation, No diarrhea, No nausea Genitourinary: No dysuria Musculoskeletal: No back pain, No joint pain Skin: No pruritus, No rash Past Qkcthju-Fkyorf-Wcarur Hx Patient Social History Alcohol Use: Denies Use Recreational Drug Use: No Smoking Status: Former Smoker Type Used: Cigarettes Former Smoker, Quit: Aug 20, 2005 2nd Hand Smoke Exposure: No Recent Hopitalizations: No Immunizations Up To Date Tetanus Booster (TDap): Less than 5yrs PED Vaccines UTD: No Date of Pneumonia Vaccine: Jun 29, 2017 Date of Influenza Vaccine: Jul 16, 2017 Seasonal Allergies Seasonal Allergies: No Past Medical History Surgeries: Yes (CATARACTS, CARPAL TUNNEL, BILAT.THUMBS) Eye Surgery, Orthopedic, Prostatectomy, Tonsillectomy, Vascular Surgery Respiratory: Yes (CPAP AT HS; ACUTE ON CHRONIC RESPIRATORY FAILURE) Pneumonia, Sleep Apnea, COPD Currently Using CPAP: No Currently Using BIPAP: No Cardiac: Yes Atrial Fibrillation, High Cholesterol, Hypertension Neurological: Yes (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) Neuropathy Reproductive Disorders: No Sexually Transmitted Disease: No HIV/AIDS: No Genitourinary: Yes (TURP) Benign Prostatic Hyperpl, Renal Failure, UTI-Chronic Gastrointestinal: No Gastroesophageal Reflux, Chronic Constipation Musculoskeletal: Yes (GENERALIZED WEAKNESS; FREQUENT FALLS ) Endocrine: Yes Diabetes, Insulin dep HEENT: Yes Macular Degeneration Hearing Impairment: Hard of Hearing Cancer: Yes (BASAL CELL CARCINOMA) Skin Did You Recieve Any Treatments: No Psychosocial: Yes Sleep Difficulties Integumentary: Yes (CELLULITIS IN LEFT KNEE EARLY OCTOBER 2013) Recent Skin Changes Blood Disorders: No Adverse Reaction/Blood Tranf: No Family Medical History COPD 19 FATHER Colon cancer 19 MOTHER Diabetes mellitus G8 SISTER Drug abuse G8 SISTER Lung cancer 19 FATHER Polio G8 BROTHER Sarcoidosis G8 BROTHER Cancer Physical Exam Vital Signs Vital Signs - First Documented 04/07/18 08:10 FiO2 50 Capillary Refill : General Appearance: WD/WN, moderate distress Eyes: Bilateral Eye Normal Inspection, Bilateral Eye PERRL, Bilateral Eye EOMI HEENT: PERRL/EOMI, pharynx normal Neck: non-tender, supple, normal inspection Respiratory: chest non-tender, respiratory distress (mod-severe), decreased breath sounds, accessory muscle use Cardiovascular: normal peripheral pulses, no edema, no JVD, tachycardia Gastrointestinal: normal bowel sounds, non tender, soft Extremities: non-tender, normal inspection, normal capillary refill Neurologic/Psychiatric: alert, oriented x 3, other (anxious) Skin: normal color, warm/dry Focused Exam Lactate Level 04/07/18 07:56: Lactic Acid Level 0.76 Lactic Acid Level Laboratory Tests Test 04/07/18 07:56 Lactic Acid Level 0.76 MMOL/L (0.50-2.00) Procedures/Interventions Date of ETT Placement: Oct 13, 2016 Time of ETT Placement: 2129 Progress/Results/Core Measures Suspected Sepsis SIRS Temperature: Pulse: Respiratory Rate: Laboratory Tests 04/07/18 07:56: White Blood Count 10.8 Blood Pressure / Mean: 04/07/18 07:56: Lactic Acid Level 0.76 Laboratory Tests 04/07/18 07:56: Creatinine 1.35H, INR Comment 3.7H, Platelet Count 145, Total Bilirubin 1.2H Results/Orders Lab Results Laboratory Tests Test 04/07/18 07:49 04/07/18 07:56 Range/Units Blood Gas Puncture Site L BRACHIAL Blood Gas Patient Temperature 97.2 Arterial Blood pH 7.28 *L 7.37-7.43 Arterial Blood Partial Pressure CO2 58 H 35-45 MMHG Arterial Blood Partial Pressure O2 75 L 79-93 MMHG Arterial Blood HCO3 26 23-27 MMOL/L Arterial Blood Total CO2 28.3 21.0-31.0 MMOL/L Arterial Blood Oxygen Saturation 93 L 94-100 % Arterial Blood Base Excess 0.3 -2.5-2.5 MMOL/L Kadeem Test P Blood Gas Ventilator Setting NO Blood Gas Inspired Oxygen 15 White Blood Count 10.8 4.3-11.0 10^3/uL Red Blood Count 3.62 L 4.35-5.85 10^6/uL Hemoglobin 11.1 L 13.3-17.7 G/DL Hematocrit 32 L 40-54 % Mean Corpuscular Volume 88 80-99 FL Mean Corpuscular Hemoglobin 31 25-34 PG Mean Corpuscular Hemoglobin Concent 35 32-36 G/DL Red Cell Distribution Width 14.6 H 10.0-14.5 % Platelet Count 145 130-400 10^3/uL Mean Platelet Volume 10.3 7.4-10.4 FL Neutrophils (%) (Auto) 77 H 42-75 % Lymphocytes (%) (Auto) 10 L 12-44 % Monocytes (%) (Auto) 12 0-12 % Eosinophils (%) (Auto) 2 0-10 % Basophils (%) (Auto) 0 0-10 % Neutrophils # (Auto) 8.2 H 1.8-7.8 X 10^3 Lymphocytes # (Auto) 1.0 1.0-4.0 X 10^3 Monocytes # (Auto) 1.3 H 0.0-1.0 X 10^3 Eosinophils # (Auto) 0.2 0.0-0.3 10^3/uL Basophils # (Auto) 0.0 0.0-0.1 10^3/uL Prothrombin Time 37.0 H 12.2-14.7 SEC INR Comment 3.7 H 0.8-1.4 Activated Partial Thromboplast Time 54 H 24-35 SEC Sodium Level 137 135-145 MMOL/L Potassium Level 3.6 3.6-5.0 MMOL/L Chloride Level 105 98-107 MMOL/L Carbon Dioxide Level 28 21-32 MMOL/L Anion Gap 4 L 5-14 MMOL/L Blood Urea Nitrogen 19 H 7-18 MG/DL Creatinine 1.35 H 0.60-1.30 MG/DL Estimat Glomerular Filtration Rate 51 BUN/Creatinine Ratio 14 Glucose Level 207 H 70-105 MG/DL Lactic Acid Level 0.76 0.50-2.00 MMOL/L Calcium Level 9.1 8.5-10.1 MG/DL Total Bilirubin 1.2 H 0.1-1.0 MG/DL Aspartate Amino Transf (AST/SGOT) 12 5-34 U/L Alanine Aminotransferase (ALT/SGPT) 10 0-55 U/L Alkaline Phosphatase 88 40-136 U/L Troponin I < 0.30 <0.30 NG/ML Total Protein 6.6 6.4-8.2 GM/DL Albumin 2.8 L 3.2-4.5 GM/DL My Orders Orders - FARZAD BAE Arterial Blood Gas (04/07/18 07:49) Cbc With Automated Diff (04/07/18 07:51) Comprehensive Metabolic Panel (04/07/18 07:51) Lactic Acid Analyzer (04/07/18 07:51) Blood Culture (04/07/18 07:51) Sputum Culture (04/07/18 07:51) Ua Culture If Indicated (04/07/18 07:51) Protime With Inr (04/07/18 07:51) Partial Thromboplastin Time (04/07/18 07:51) Chest 1 View, Ap/Pa Only (04/07/18 07:51) O2 (04/07/18 07:51) Saline Lock/Iv-Start (04/07/18 07:51) Saline Lock/Iv-Start (04/07/18 07:51) Ekg Tracing (04/07/18 07:51) Troponin I (04/07/18 07:51) Ns Iv 1000 Ml (Sodium Chloride 0.9%) (04/07/18 08:00) Cefepime Injection (Maxipime Injection) (04/07/18 08:00) Vital Signs Adult Sepsis Patie Q15M (04/07/18 07:51) Remove Rings In Anticipation O (04/07/18 07:51) Albuterol/Ipra Inhalation Soln (Duoneb I (04/07/18 08:00) Svn Small Volume Nebulizer (04/07/18 07:51) Albuterol/Ipra Inhalation Soln (Duoneb I (04/07/18 07:53) Ipratropium 0.02% Neb Solution (Atrovent (04/07/18 08:07) Albuterol Pre-Mix Nebs (Rt) (Proventil (04/07/18 08:07) Albuterol/Ipra Inhalation Soln (Duoneb I (04/07/18 08:15) Albuterol Pre-Mix Nebs (Rt) (Proventil (04/07/18 08:13) Arterial Blood Draw (04/07/18 ) Catheter(Urinary) Insert & Ass 03,15 (04/07/18 08:53) Medications Given in ED Current Medications Medications Dose Ordered Sig/Nidhi Route Start Time Stop Time Status Last Admin Dose Admin Albuterol Sulfate 2.5 mg STK-MED ONCE .ROUTE 04/07/18 08:07 04/07/18 08:09 DC 04/07/18 08:11 15 MG Albuterol/ Ipratropium 3 ml STK-MED ONCE .ROUTE 04/07/18 07:53 04/07/18 07:55 DC 04/07/18 07:56 3 ML Cefepime HCl 2000 mg/Sodium Chloride 50 ml @ 100 mls/hr ONCE ONCE IV 04/07/18 08:00 04/07/18 08:29 DC 04/07/18 08:49 100 MLS/HR Ipratropium [place] 0.5 mg STK-MED ONCE IH 04/07/18 08:07 04/07/18 08:09 DC 04/07/18 08:12 0.5 MG Sodium Chloride 2,000 ml @ 2,000 mls/hr PRN PRN IV 04/07/18 08:00 04/07/18 08:50 2,000 MLS/HR Vital Signs/I&O 04/07/18 04/07/18 04/07/18 04/07/18 07:43 07:43 07:55 08:10 Temp 97.2 Pulse 118 Resp 48 B/P (MAP) 181/93 (122) Pulse Ox 86 86 93 96 O2 Delivery Nasal Cannula Nasal Cannula OxyMask Vapotherm O2 Flow Rate 6.00 6.00 15.00 30.00 FiO2 50 Capillary Refill : Diagnostic Imaging Diagonstic Imaging: Xray (1v) Plain Films/CT/US/NM/MRI: chest Comments [facility] [place] [place] NAME: ANIYAH MANZANARES Zbigniew MED REC#: [id number] PT STATUS: REG ER : 1935 PHYSICIAN: FARZAD BAE MD ADMIT DATE: 04/07/18/ER Draft Date of Exam:04/07/18 CHEST 1 VIEW, AP/PA ONLY EXAMINATION: Portable erect AP chest at 8:23 AM. INDICATION: Respiratory distress. FINDINGS: The appearance of the chest has worsened since the prior exam of 03/17/2018 as new areas of pneumonia/atelectasis have developed in both lung bases. There are now diffuse alveolar/interstitial pulmonary infiltrates involving each lower lobe with partial obscuration of the hemidiaphragms. The upper lungs are relatively clear. The heart is stable in size. The mediastinum is not widened. The osseous structures are intact. Healed rib fractures are again evident on the right. IMPRESSION: The appearance of the chest has worsened since the prior exam as there is greater involvement of both lung bases. A followup exam would be recommended for continued evaluation. Dictated on workstation # [id number] Dict: 04/07/1828 Trans: 04/07/18 0838 [id number] Interpreted by: KB REID MD Electronically signed by: Reviewed: Reviewed by Me Critical Care Note Critical Care Start Time: 07:48 Stop Time: 08:15 Total Time (minutes) 27 Progress Patient presents in moderate to severe respiratory distress giving one-word halted answers with increased accessory muscle use and work of breathing. His respiratory rate was in the 40s to 50s with a very elevated blood pressure and heart rate in the 110-120 range. His records indicate he does not have any breathing treatments ordered for him however he does have a history of acute respiratory failure and COPD. We listened his lungs which were severely diminished with little air flow noted bilaterally. No crackles were heard. He says he was coughing and had some chills lately but no objective fever. We initiated at DuoNeb, ABG labs septic workup and IV fluids. After the DuoNeb he had a modest increase in breath sounds with wheezing. We started him on hour- long albuterol treatment. We initiated a Soriano catheter as the patient was too weak to get up and urinate. On reexamination serially his breath sounds were improving significantly although he was still diminished. His initial ABG showed a pH is 7.2 with elevated CO2 of 58 and decreased PaO2 of 70 something. We initiated Vapotherm prior to getting the results of the ABG just based on his increased work of breathing alone. 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 We have discussed keeping him in the hospital and he is in agreement with this plan. A septic workup was initiated and cefepime was chosen initially as a respiratory infection being the most likely source of his respiratory distress. [facility] in a [facility] so this is not community-acquired. Departure Communication (Admissions) Time/Spoke to Admitting Phy: 09:48 Discussed case lab EKG imaging findings and examination and he will see the patient later today. He is okay with the floor. Talked about antibiotics. Impression Primary Impression: COPD exacerbation Additional Impressions: Acute respiratory failure with hypoxia and hypercapnia Bilateral pneumonia Qualified Codes: J18.1 - Lobar pneumonia, unspecified organism Elevated INR Disposition: ADMITTED INPATIENT Condition: Improved Admissions Decision to Admit Reason: Admit from ER (General) Decision to Admit/Date: Apr 07, 2018 Time/Decision to Admit Time: 09:52 Departure-Patient Inst. Referrals: RUBEN SANCHEZ MD (PCP/Family) Primary Care Physician Copy Copies To 1: RUBEN SANCHEZ MD, TITUS J Apr 07, 2018 07:57
[2018-04-07] MEDS ORDERED: CEFEPIME INJECTION 2,000 MG in NS (IVPB) 50 ML IV ONE (08:00)
[2018-04-07] MEDS ORDERED: NS IV 1000 ML 2,000 ML IV PRN (08:00)
[2018-04-07] MEDS ORDERED: RT-ALBUTEROL/IPRATROPIUM 3 ML (DUONEB) VIAL INH ONE ×2 (08:00→08:15)
[2018-04-07 08:02] LABS: ABG BASE EXCESS 0.3 MMOL/L (-2.5-2.5); ABG OXYGEN SATURATION 93 % (94-100); ABG PCO2 58 MMHG (35-45); ABG PO2 75 MMHG (79-93); ABG TCO2 28.3 MMOL/L (21.0-31.0)
[2018-04-07 08:04] LABS: ABG PH 7.28 (7.37-7.43); ALLENS TEST P; PATIENT TEMP 97.2
[2018-04-07 08:06] LABS: INSPIRED O2 15; VENTILATOR NO
[2018-04-07] MEDS ORDERED: RT-IPRATROPIUM (ATROVENT) 0.5MG/2.5ML AMP IH ONE (08:07)
[2018-04-07] MEDS ORDERED: RT-ALBUTEROL SULF 2.5 MG/3 ML PRE-MIX VIAL ONE (08:07)
[2018-04-07 08:09] LABS: BASOPHILS % (AUTO) 0 % (0-10); EOSINOPHILS # (AUTO) 0.2 10^3/uL (0.0-0.3); EOSINOPHILS % (AUTO) 2 % (0-10); HEMATOCRIT 32 % (40-54); HEMOGLOBIN 11.1 G/DL (13.3-17.7); LYMPHOCYTES % (AUTO) 10 % (12-44); MEAN CORPUSCULAR HEMOGLOBIN 31 PG (25-34); MEAN CORPUSCULAR HGB CONC 35 G/DL (32-36); MEAN CORPUSCULAR VOLUME 88 FL (80-99); MEAN PLATELET VOLUME 10.3 FL (7.4-10.4); MONOCYTES # (AUTO) 1.3 X 10^3 (0.0-1.0); MONOCYTES % (AUTO) 12 % (0-12); NEUTROPHILS # (AUTO) 8.2 X 10^3 (1.8-7.8); NEUTROPHILS % (AUTO) 77 % (42-75); PLATELET COUNT 145 10^3/uL (130-400); RED BLOOD COUNT 3.62 10^6/uL (4.35-5.85); RED CELL DISTRIBUTION WIDTH 14.6 % (10.0-14.5); WHITE BLOOD COUNT 10.8 10^3/uL (4.3-11.0)
[2018-04-07] MEDS ORDERED: RT-ALBUTEROL SULF 2.5 MG/3 ML PRE-MIX VIAL INH STA (08:13)
[2018-04-07 08:22] LABS: INR 3.7 (0.8-1.4)
[2018-04-07 08:30] LABS: ALANINE AMINOTRANSFERASE 10 U/L (0-55); ALBUMIN 2.8 GM/DL (3.2-4.5); ALKALINE PHOSPHATASE 88 U/L (40-136); BILIRUBIN,TOTAL 1.2 MG/DL (0.1-1.0); BUN/CREATININE RATIO 14; CALCIUM 9.1 MG/DL (8.5-10.1); CARBON DIOXIDE 28 MMOL/L (21-32); CHLORIDE 105 MMOL/L (98-107); CREATININE SERUM 1.35 MG/DL (0.60-1.30); GFR ESTIMATED 51; GLUCOSE 207 MG/DL (70-105); POTASSIUM 3.6 MMOL/L (3.6-5.0); SODIUM 137 MMOL/L (135-145); TOTAL PROTEIN 6.6 GM/DL (6.4-8.2)
--- NOTE | 2018-04-07 08:38 | Diagnostic Imaging Report ---
EXAMINATION: Portable erect AP chest at 8:23 AM. INDICATION: Respiratory distress. FINDINGS: The appearance of the chest has worsened since the prior exam of 03/17/2018 as new areas of pneumonia/atelectasis have developed in both lung bases. There are now diffuse alveolar/interstitial pulmonary infiltrates involving each lower lobe with partial obscuration of the hemidiaphragms. The upper lungs are relatively clear. The heart is stable in size. The mediastinum is not widened. The osseous structures are intact. Healed rib fractures are again evident on the right. IMPRESSION: The appearance of the chest has worsened since the prior exam as there is now bibasilar pneumonia/atelectasis superimposed on the underlying chronic pulmonary changes.. A followup exam would be recommended for continued evaluation. Dictated by: Dictated on workstation # [id number]
--- OUTSIDE RECORDS SUMMARY | 2018-04-07 10:16 | XMS REPORT | Clinical Summary ---
Author Author [facility] Organization [facility] Address Unknown Phone Unavailable Care Team Providers Care Automation Test Developer Name Role Phone JasonCailin Unavailable Unavailable Ru Gomez MD PCP Ronen Agosto MD Unavailable Source Comments Some departments are not documenting in the electronic medical record. If you do not see the information that you expected, contact Release of Information in the Health Information Management department at [phone] for further assistance in locating additional records.[facility] Allergies Active Allergy Reactions Severity [...] Wheezing. nebulizer Indications: CHRONIC solutionIndications: OBSTRUCTIVE PULMONARY Chronic Obstructive DISEASE Pulmonary Disease ipratropium (ATROVENT) Inhale 2.5 mL by mouth 1 Bottle 11 10/20/19 Active 0.02 % nebulizer twice daily. Indications: 16 solutionIndications: CHRONIC OBSTRUCTIVE Chronic Obstructive ASTHMA Asthma diltiazem CD (CARDIZEM Take 2 Caps by mouth 60 Cap 11 10/26/19 Active CD) 240 mg daily. 16 capsuleIndications: Paroxysmal atrial fibrillation (HCC), Shortness of breath, Essential hypertension, Coronary artery disease involving [place] coronary artery of [place] heart without angina pectoris aspirin EC 81 [...] and Noc ox Coronary artery disease involving [place] coronary artery of [place] heart 10/2014 without angina pectoris Diabetic neuropathy (HCC) 06/30/2015 Diabetes mellitus (HCC) 06/30/2015 Shortness of breath 06/30/2015 Last Assessment & Plan: Multifactorial with deconditioning, Afib, VIPIN Fatigue 06/30/2015 Obesity 06/30/2015 Peripheral neuropathy 06/30/2015 Family History Relation Name Status Comments [...] EXAM 1954 HBA1C 1954 MICROALBUMIN 1954 SHINGLES RECOMBINANT 1986 VACCINE (1 of 2) PNEUMONIA (PCV13/PPSV23) 2001 VACCINES (1 of 2 - PCV13) INFLUENZA VACCINE 06/29/2018 Results Not on filefrom Last 3 Months
[2018-04-07 11:04] VITALS: BP 153/95
[2018-04-07] MEDS ORDERED: 1/2 NS W/KCL 20 MEQ/L 1,000 ML IV SCH (11:15)
[2018-04-07] MEDS ORDERED: AZITHROMYCIN 500 MG/NS 250 ML IVPB IV SCH ×2 (11:18)
[2018-04-07] MEDS ORDERED: LOSA50TA2 PO (11:38)
[2018-04-07] MEDS ORDERED: FURO20TA4 PO (11:38)
[2018-04-07] MEDS ORDERED: OXYB10TA PO (11:38)
[2018-04-07] MEDS ORDERED: GFCD10B PO (11:38)
[2018-04-07] MEDS ORDERED: POTA-51 PO (11:38)
[2018-04-07] MEDS ORDERED: LOSA100T28 PO (12:06)
--- NOTE | 2018-04-07 12:34 | History & Physical ---
History of Present Illness History of Present Illness Reason for visit/HPI 82 yo M admitted inpatient from the ER for acute COPD exacerbation, concern for pneumonia. He was residing at [facility] for SNF after a hospitalization last month. Patient reports he was doing alright until yesterday he had worsening trouble breathing- baseline oxygen 4L NC- Therapy continued to work with him and today he said he could not participate. Oxygen saturation was 80s on 5L oxygen; so he was transferred to the ER this AM. No fevers, urinating alright; mental status stable. No other findings leading up to the acute hypoxia. Patient reports he feels much better with the vapotherm. Xray of his chest worse compared to February xray with more consolidation in lower lung [place] which supports his decreased breath sounds and hypoxia. IVF will be stopped. Date of Admission Apr 07, 2018 at 09:00 Date Seen by Provider: Apr 07, 2018 Time Seen by Provider: 12:35 I consulted on this patient on 04/07/18 12:32 Attending Physician Hugo Alexander MD Admitting Physician Hugo Alexander MD Consult Allergies and Home Medications Allergies Coded Allergies: sulfamethoxazole (Verified Allergy, Mild, RASH, 11/13/17) trimethoprim (Verified Allergy, Mild, RASH, 11/13/17) Home Medications Aspirin 81 Mg Tablet.dr, 81 MG PO 1400, (Reported) Carvedilol 12.5 Mg Tablet, 18.75 MG PO BID, (Reported) TAKES 1 & 1/2 (12.5MG) TABLETS Clopidogrel Bisulfate 75 Mg Tablet, 75 MG PO DAILY, (Reported) Digoxin 125 Mcg Tablet, 125 MCG PO DAILY, (Reported) Docusate Sodium 100 Mg Capsule, 100 MG PO BID, (Reported) Ferrous Sulfate 325 Mg Tablet, 325 MG PO BID, (Reported) Furosemide 20 Mg Tablet, 20 MG PO DAILY, (Reported) Guaifenesin/Codeine 10 Ml Syrp, 5 ML PO Q4H PRN for COUGH, (Reported) Insuln Asp Prt/Insulin Aspart 300 Units/3 Ml Solution, 14 UNITS SQ DAILY, ( Reported) Insuln Asp Prt/Insulin Aspart 300 Units/3 Ml Solution, 15 UNITS SQ HS, (Reported ) Losartan Potassium 100 Mg Tablet, 100 MG PO DAILY, (Reported) [place] 3 Polyunsat Fatty Acids 1,000 Mg Cap, 1,000 MG PO DAILY, (Reported) Polyethylene Glycol 3350 17 Gm Powd.pack, 17 GM PO DAILY, (Reported) Potassium Chloride 20 Meq Tablet.er, 20 MEQ PO DAILY, (Reported) Ranitidine HCl 150 Mg Tablet, 150 MG PO BID, (Reported) Trospium Chloride 60 Mg Cap.er.24h, 60 MG PO DAILY, (Reported) END DATE 04-18-18 AFTER THAT SWITCH TO OXYBUTYNIN ER 10MG DAILY Warfarin Sodium 5 Mg Tablet, 7.5 MG PO SuMoWeFrSa, (Reported) TAKES 1 & 1/2 (5MG) TABLETS Warfarin Sodium 5 Mg Tablet, 5 MG PO TuTh, (Reported) Patient Home Medication List Home Medication List Reviewed: Yes Past Jtzlexj-Ytwfmm-Vrglct Hx Patient Social History Alcohol Use: Denies Use Recreational Drug Use: No Smoking Status: Former Smoker Former Smoker, Quit: Aug 20, 2005 Type Used: Cigarettes 2nd Hand Smoke Exposure: No Recent Foreign Travel: No Contact w/other who traveled: No Recent Hopitalizations: Yes Recent Infectious Disease Expo: No Immunizations Up To Date Tetanus Booster (TDap): Less than 5yrs Pediatric: No Date of Pneumonia Vaccine: Jun 29, 2017 Date of Influenza Vaccine: Jul 16, 2017 Seasonal Allergies Seasonal Allergies: No Surgeries Yes (CATARACTS, CARPAL TUNNEL, BILAT.THUMBS) Eye Surgery, Orthopedic, Prostatectomy, Tonsillectomy, Vascular Surgery Respiratory Yes (CPAP AT HS; ACUTE ON CHRONIC RESPIRATORY FAILURE) COPD, Pneumonia, Sleep Apnea Currently Using CPAP: No Currently Using BIPAP: No Cardiovascular Yes Atrial Fibrillation, High Cholesterol, Hypertension Neurological Yes (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) Neuropathy Reproductive System Hx Reproductive Disorders: No Sexually Transmitted Disease: No HIV/AIDS: No Genitourinary Yes (TURP) Benign Prostatic Hyperpl, Renal Failure, UTI-Chronic Gastrointestinal No Gastroesophageal Reflux, Chronic Constipation Musculoskeletal Yes (GENERALIZED WEAKNESS; FREQUENT FALLS ) Endocrine History of Endocrine Disorders: Yes Endocrine Disorders: Diabetes, Insulin dep HEENT History of HEENT Disorders: Yes HEENT Disorders: Macular Degeneration Hearing Impairment: Hard of Hearing Cancer Yes (BASAL CELL CARCINOMA) Skin Did You Recieve Any Treatments: No Psychosocial History of Psychiatric Problem: Yes Behavioral Health Disorders: Sleep Difficulties Integumentary History of Skin or Integumenta: Yes (CELLULITIS IN LEFT KNEE EARLY OCTOBER 2013) Skin/Integumentary Disorders: Recent Skin Changes Blood Transfusions History of Blood Disorders: No Adverse Reaction to a Blood Tr: No Family Medical History Significant Family History: Cancer Family Hx: COPD 19 FATHER Colon cancer 19 MOTHER Diabetes mellitus G8 SISTER Drug abuse G8 SISTER Lung cancer 19 FATHER Polio G8 BROTHER Sarcoidosis G8 BROTHER Review of Systems Review of Systems General: No Chills; Fatigue HEENT: No Head Aches Pulmonary: Dyspnea, Cough Cardiovascular: No: Chest Pain, Palpitations Gastrointestinal: No: Nausea, Vomiting, Abdominal Pain Genitourinary: No Dysuria Neurological: Weakness; No: Confusion Physical Exam Vital Signs Vital Signs - First Documented 04/07/18 08:10 FiO2 50 Capillary Refill : Less Than 3 Seconds Height, Weight, BMI Height: 5', 11.00" Weight: 222lbs 0.0oz, [id number] Method:Stated ,31.9BMI General Appearance: WD/WN, Chronically ill, Mild Distress HEENT: PERRL/EOMI Neck: Full Range of Motion, Normal Inspection Respiratory: Decreased Breath Sounds Cardiovascular: Other (irregular rhythm, normal rate) Gastrointestinal: Normal Bowel Sounds, Non Tender, Soft Rectal: Deferred Back: Normal Inspection, No CVA Tenderness Extremity: Non Tender, No Calf Tenderness Neurologic/Psychiatric: Alert, Oriented x3, Normal Mood/Affect Skin: Warm/Dry Assessment/Plan Assessment/Plan Admission Dx acute on chronic hypoxic hypercapneic respiratory failure Admission Status: Inpatient Order (span 2 midnights) Reason for Inpatient Admission: acute on chronic hypoxic hypercapneic respiratory failure -Patient is requiring respiratory support above his baseline 4L nasal canula of oxgen - Assessment and Plan holding tonight's dose of warfarin- rechecking INR RT consulted- continue to support his oxygen requirements. Problems: (1) Renal insufficiency Assessment & Plan: stage III avoid nephrotoxic agents (2) COPD (chronic obstructive pulmonary disease) Qualifiers: Qualified Codes: J44.1 - Chronic obstructive pulmonary disease with (acute) exacerbation (3) Chronic atrial fibrillation Assessment & Plan: on warfarin (4) HTN (hypertension) Qualifiers: Qualified Codes: I10 - Essential (primary) hypertension (5) Acute on chronic respiratory failure Qualifiers: Qualified Codes: J96.21 - Acute and chronic respiratory failure with hypoxia ; J96.22 - Acute and chronic respiratory failure with hypercapnia (6) Elevated INR Assessment & Plan: no sign of bleeding monitor INR (7) COPD exacerbation (8) Acute respiratory failure with hypoxia and hypercapnia Assessment & Plan: consult respiratory therapy. 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
[2018-04-07] MEDS ORDERED: guaiFENesin/CODEINE (ROBITUSSIN AC) 10ML UDC PO PRN (12:45)
[2018-04-07] MEDS: RT-ALBUTEROL/IPRATROPIUM 3 ML (DUONEB) VIAL INH SCH ×3 (14:12→22:32)
[2018-04-07] MEDS: ASPIRIN E.C. 81 MG (ECOTRIN) TAB PO SCH (14:13)
[2018-04-07 15:29] VITALS: BP_SYST 153; BP_SYST 172; BP_DIAS 78; BP_DIAS 95
[2018-04-07] MEDS: inSUlin ASPART (NovoLOG) 1 UNIT/0.01 ML (CHARGE PER UNIT) SC SCH ×2 (15:49→20:02)
[2018-04-07] MEDS ORDERED: FUROSEMIDE 40 MG/4 ML INJ (LASIX) IVP NR (17:45)
[2018-04-07] MEDS: FERROUS SULF 325 MG (IRON) TAB PO SCH (18:00)
[2018-04-07] MEDS ORDERED: warFARin 5 MG (COUMADIN) TAB PO SCH (18:00)
[2018-04-07] MEDS: POLYETHYLENE GLYCOL 17 GM (MIRALAX) PACK PO SCH (20:00)
[2018-04-07] MEDS: inSUlin Protamine/ASPart 70/30 1 UNIT/0.01 ML DOSE SC SCH (20:01)
[2018-04-07] MEDS: CARVEDILOL 12.5 MG (COREG) TABLET PO SCH (20:01)
[2018-04-07] MEDS: DOCUSATE SODIUM 100 MG (COLACE) CAP PO SCH (20:01)
[2018-04-07 20:03] VITALS: BP 172/68
[2018-04-07] MEDS ORDERED: NON-FORMULARY MEDICATION 1 EA EA (Docusate Sodium 100 MG) PO SCH (21:00)
[2018-04-08 00:01] VITALS: BP 145/81
[2018-04-08] MEDS: RT-ALBUTEROL/IPRATROPIUM 3 ML (DUONEB) VIAL INH SCH ×6 (02:39→22:01)
[2018-04-08 03:47] VITALS: BP 171/79
[2018-04-08] MEDS: inSUlin ASPART (NovoLOG) 1 UNIT/0.01 ML (CHARGE PER UNIT) SC SCH ×4 (05:10→20:35)
[2018-04-08] MEDS: FERROUS SULF 325 MG (IRON) TAB PO SCH ×2 (06:01→16:54)
[2018-04-08 06:15] LABS: BASOPHILS % (AUTO) 0 % (0-10); EOSINOPHILS # (AUTO) 0.2 10^3/uL (0.0-0.3); EOSINOPHILS % (AUTO) 2 % (0-10); HEMATOCRIT 27 % (40-54); HEMOGLOBIN 9.3 G/DL (13.3-17.7); LYMPHOCYTES # (AUTO) 1.1 X 10^3 (1.0-4.0); LYMPHOCYTES % (AUTO) 15 % (12-44); MEAN CORPUSCULAR HEMOGLOBIN 30 PG (25-34); MEAN CORPUSCULAR HGB CONC 34 G/DL (32-36); MEAN CORPUSCULAR VOLUME 88 FL (80-99); MEAN PLATELET VOLUME 10.5 FL (7.4-10.4); MONOCYTES # (AUTO) 0.8 X 10^3 (0.0-1.0); MONOCYTES % (AUTO) 11 % (0-12); NEUTROPHILS # (AUTO) 5.5 X 10^3 (1.8-7.8); NEUTROPHILS % (AUTO) 72 % (42-75); PLATELET COUNT 136 10^3/uL (130-400); RED BLOOD COUNT 3.09 10^6/uL (4.35-5.85); RED CELL DISTRIBUTION WIDTH 14.9 % (10.0-14.5); WHITE BLOOD COUNT 7.6 10^3/uL (4.3-11.0)
[2018-04-08 06:24] LABS: INR 3.6 (0.8-1.4); PROTHROMBIN TIME PATIENT 36.2 SEC (12.2-14.7)
[2018-04-08 06:30] LABS: BUN/CREATININE RATIO 18; CALCIUM 8.3 MG/DL (8.5-10.1); CARBON DIOXIDE 25 MMOL/L (21-32); CHLORIDE 108 MMOL/L (98-107); CREATININE SERUM 1.13 MG/DL (0.60-1.30); GFR ESTIMATED > 60; GLUCOSE 97 MG/DL (70-105); POTASSIUM 3.1 MMOL/L (3.6-5.0); SODIUM 139 MMOL/L (135-145)
[2018-04-08] MEDS ORDERED: KCL 20 MEQ TAB (K-DUR) PO SCH (07:00)
[2018-04-08 07:46] VITALS: BP 172/68
[2018-04-08] MEDS ORDERED: NON-FORMULARY MEDICATION 1 EA EA (Polyethylene Glycol 3350 (Miralax) 17 GM) PO SCH (09:00)
[2018-04-08] MEDS ORDERED: NON-FORMULARY MEDICATION 1 EA EA (Potassium Chloride 20 MEQ) PO SCH (09:00)
[2018-04-08] MEDS ORDERED: CEFEPIME 2 GM/NS 50 ML IVPB IV SCH ×2 (09:00)
[2018-04-08] MEDS: CARVEDILOL 12.5 MG (COREG) TABLET PO SCH ×2 (09:33→20:29)
[2018-04-08] MEDS: FUROSEMIDE 20 MG (LASIX) TAB PO SCH (09:33)
[2018-04-08] MEDS: DOCUSATE SODIUM 100 MG (COLACE) CAP PO SCH ×2 (09:33→20:24)
[2018-04-08] MEDS: OMEGA 3 (FISH OIL) 1000 MG CAP PO SCH (09:33)
--- NOTE | 2018-04-08 09:33 | Diagnostic Imaging Report ---
Indication: Acute respiratory distress. Time of exam: 8:59 AM Correlation is made with prior study from one day earlier. Improved appearance of chest is noted with moderate clearing of bilateral infiltrates. Minimal residual infiltrate remains in the right midlung field. Small bilateral effusions are present. Upper lung hudson are clear. There is no pneumothorax. Impression: Partial clearing of bilateral infiltrates when compared with examination of one day earlier. Note is made of small bilateral pleural effusions. Dictated by: Dictated on workstation # [id number]
[2018-04-08] MEDS: AZITHROMYCIN 250 MG TAB (ZITHROMAX) PO SCH (09:34)
[2018-04-08] MEDS: LOSARTAN 100 MG (COZAAR) TABLET PO SCH (09:34)
[2018-04-08] MEDS: DIGOXIN 0.125 MG (LANOXIN) TAB PO SCH (09:34)
[2018-04-08] MEDS: inSUlin Protamine/ASPart 70/30 1 UNIT/0.01 ML DOSE SC SCH ×2 (09:35→20:35)
[2018-04-08] MEDS: CLOPIDOGREL 75 MG (PLAVIX) TABLET PO SCH (09:35)
--- NOTE | 2018-04-08 11:54 | Progress Note (SOAP) ---
Subjective Subjective Date Seen by Provider: Apr 08, 2018 Time Seen by Provider: 11:53 82 yo M admitted for acute on chronic hypoxic hypercapneic respiratory failure; pt reports he feels much better. improvement in chest xray after stopping fluids and giving 20 of lasix- still on vapotherm this AM. Stopping cefepime as I do not think he has HCAP. Review of Systems General: No Chills, No Night Sweats HEENT: No Head Aches Pulmonary: No Dyspnea; Cough Cardiovascular: No: Chest Pain Gastrointestinal: No: Nausea, Vomiting Genitourinary: No Dysuria Neurological: Weakness; No: Confusion Objective Exam Vital Signs Vital Signs Date Time Temp Pulse Resp B/P (MAP) Pulse Ox O2 Delivery O2 Flow Rate FiO2 04/08/18 12:00 98.1 80 22 173/73 (106) 94 Vapotherm 30.00 20.00 04/08/18 11:01 91 Vapotherm 20.00 30 04/08/18 08:30 Vapotherm 20.00 30 04/08/18 07:46 98.0 78 24 172/68 (102) 92 Vapotherm 30.00 20.00 I & O General Appearance: No Apparent Distress, WD/WN, Chronically ill Eyes: Bilateral Eye Normal Inspection, Bilateral Eye PERRL, Bilateral Eye EOMI HEENT: PERRL/EOMI Neck: Full Range of Motion, Normal Inspection Respiratory: No Accessory Muscle Use, Decreased Breath Sounds (improved in the bases- moving air better) Cardiovascular: Other (irregular rhythm, normal rate) Gastrointestinal: Non Tender, Soft Rectal: Deferred Back: Normal Inspection Extremity: Normal Capillary Refill, Non Tender Neurologic/Psychiatric: Alert, Oriented x3, Normal Mood/Affect Skin: Warm/Dry Results Lab Laboratory Tests 04/07/18 15:32: Glucometer 202H 04/07/18 19:46: Glucometer 169H 04/08/18 05:09: Glucometer 111H 04/08/18 05:13: White Blood Count 7.6, Red Blood Count 3.09L, Hemoglobin 9.3L, Hematocrit 27L, Mean Corpuscular Volume 88, Mean Corpuscular Hemoglobin 30, Mean Corpuscular Hemoglobin Concent 34, Red Cell Distribution Width 14.9H, Platelet Count 136, Mean Platelet Volume 10.5H, Neutrophils (%) (Auto) 72, Lymphocytes (%) (Auto) 15 , Monocytes (%) (Auto) 11, Eosinophils (%) (Auto) 2, Basophils (%) (Auto) 0, Neutrophils # (Auto) 5.5, Lymphocytes # (Auto) 1.1, Monocytes # (Auto) 0.8, Eosinophils # (Auto) 0.2, Basophils # (Auto) 0.0, Prothrombin Time 36.2H, INR Comment 3.6H, Sodium Level 139, Potassium Level 3.1L, Chloride Level 108H, Carbon Dioxide Level 25, Anion Gap 6, Blood Urea Nitrogen 20H, Creatinine 1.13, Estimat Glomerular Filtration Rate > 60, BUN/Creatinine Ratio 18, Glucose Level 97, Calcium Level 8.3L 04/08/18 10:42: Glucometer 150H Assessment/Plan Assessment/Plan Admission Status: Inpatient Order (span 2 midnights) Reason for Inpatient Admission: acute on chronic respiratory failure with hypoxia and hypercapnia. Assessment and Plan holding warfarin again- rechecking INR stopped cefepime- continue azithromycin for his COPD exacerbation. lung exam improved with 20mg lasix and stopping his IVF. He has better air sounds in bases and xray was improved. Dispo: condition is improving. need to get him off vapotherm and back to [place] oxygen -Pt reports he is feeling much better and looks forward to going back to [facility]. -Will have PT assess patient while inpatient. Problems: (1) Acute on chronic respiratory failure Qualifiers: Qualified Codes: J96.21 - Acute and chronic respiratory failure with hypoxia ; J96.22 - Acute and chronic respiratory failure with hypercapnia Assessment & Plan: improved- on vapotherm currently (2) Renal insufficiency Assessment & Plan: stage III avoid nephrotoxic agents (3) COPD (chronic obstructive pulmonary disease) Qualifiers: Qualified Codes: J44.1 - Chronic obstructive pulmonary disease with (acute) exacerbation Assessment & Plan: respiratory therapy consulted (4) Chronic atrial fibrillation Assessment & Plan: monitor INR- elevated likely from poor po intake leading up to this admission. on warfarin (5) HTN (hypertension) Qualifiers: Qualified Codes: I10 - Essential (primary) hypertension Assessment & Plan: hypertensive during this stay- will monitor and adjust accordingly- He has better blood pressures in outpatient setting. pt will follow with nephrology after this admission. (6) Elevated INR Assessment & Plan: holding warfarin- resumed when INR below 3. (7) Acute respiratory failure with hypoxia and hypercapnia Assessment & Plan: consult respiratory therapy. Clinical Quality Measures DVT/VTE Risk/Contraindication: Risk Factor Score Per Nursin RFS Level Per Nursing on Admit: 3=High RUBEN SANCHEZ MD Apr 08, 2018 11:54
[2018-04-08 12:00] VITALS: BP 173/73
[2018-04-08] MEDS ORDERED: FUROSEMIDE 40 MG/4 ML INJ (LASIX) IVP NR (12:28)
[2018-04-08] MEDS: KCL 20 MEQ TAB (K-DUR) PO SCH (12:42)
[2018-04-08] MEDS: ASPIRIN E.C. 81 MG (ECOTRIN) TAB PO SCH (14:31)
[2018-04-08 15:40] VITALS: BP 178/84
[2018-04-08] MEDS: MAGNESIUM OXIDE (MAG-OX)400 MG TAB PO SCH (17:42)
[2018-04-08] MEDS ORDERED: warFARin 5 MG (COUMADIN) TAB PO SCH (18:00)
[2018-04-08 20:20] VITALS: BP 192/87
[2018-04-08] MEDS: POLYETHYLENE GLYCOL 17 GM (MIRALAX) PACK PO SCH (20:24)
[2018-04-09] VITALS: BP 167/79
[2018-04-09] MEDS: RT-ALBUTEROL/IPRATROPIUM 3 ML (DUONEB) VIAL INH SCH ×6 (01:38→22:40)
[2018-04-09 04:08] VITALS: BP 165/80
[2018-04-09] MEDS: FERROUS SULF 325 MG (IRON) TAB PO SCH ×2 (05:30→17:27)
[2018-04-09] MEDS: inSUlin ASPART (NovoLOG) 1 UNIT/0.01 ML (CHARGE PER UNIT) SC SCH (05:31)
[2018-04-09] MEDS ORDERED: DEXAMETHASONE 4 MG TAB (DECADRON) PO NR (07:30)
--- NOTE | 2018-04-09 07:34 | Progress Note (SOAP) ---
Subjective Subjective Date Seen by Provider: Apr 09, 2018 Time Seen by Provider: 07:32 82 yo M- reports he continues to improve overnight events- pt had a blood sugar of 55 at supper- it was eventually brought up with eating/drinking. Otherwise he reports he feels better- bonnieg aimee presley isolated in 1 blood culture- attributed to contaminant but still monitoring pt- he has been off cefepime [id number]. Review of Systems General: No Chills, No Night Sweats HEENT: No Head Aches, No Visual Changes Pulmonary: Dyspnea (improved), Cough Cardiovascular: No: Chest Pain, Palpitations Gastrointestinal: No: Nausea, Vomiting, Abdominal Pain Genitourinary: No Dysuria Musculoskeletal: No: neck pain Neurological: Weakness; No: Confusion Objective Exam Vital Signs Vital Signs Date Time Temp Pulse Resp B/P (MAP) Pulse Ox O2 Delivery O2 Flow Rate FiO2 04/09/18 06:37 94 Vapotherm 18.00 30 04/09/18 04:08 97.2 78 18 165/80 (108) 94 Vapotherm 30.00 18.00 04/09/18 01:38 94 Vapotherm 20.00 30 04/09/18 00:00 98.2 64 18 167/79 (108) 92 Vapotherm 30.00 20.00 04/08/18 22:01 92 Vapotherm 20.00 30 04/08/18 20:30 Vapotherm 20.00 30 04/08/18 20:20 97.8 88 18 192/87 (122) 96 Vapotherm 30.00 20.00 04/08/18 18:18 93 Vapotherm 20.00 30 04/08/18 15:40 97.7 82 20 178/84 (115) 95 Vapotherm 30.00 20.00 04/08/18 14:06 91 Vapotherm 20.00 30 04/08/18 12:00 98.1 80 22 173/73 (106) 94 Vapotherm 30.00 20.00 04/08/18 11:01 91 Vapotherm 20.00 30 04/08/18 08:30 Vapotherm 20.00 30 04/08/18 07:46 98.0 78 24 172/68 (102) 92 Vapotherm 30.00 20.00 I & O 04/09/18 07:00 Intake Total 2150 ml Output Total 1650 ml Balance 500 ml General Appearance: No Apparent Distress, WD/WN Eyes: Bilateral Eye Normal Inspection, Bilateral Eye PERRL, Bilateral Eye EOMI HEENT: PERRL/EOMI Neck: Full Range of Motion, Normal Inspection Respiratory: Lungs Clear, Normal Breath Sounds, No Accessory Muscle Use, Decreased Breath Sounds (improved from admission) Cardiovascular: Other (irregular rhythm, normal rate) Gastrointestinal: Normal Bowel Sounds, Non Tender, Soft Rectal: Deferred Back: Normal Inspection Extremity: Non Tender, No Calf Tenderness Neurologic/Psychiatric: Alert, Oriented x3, No Motor/Sensory Deficits, Normal Mood/Affect Skin: Warm/Dry Results Lab Laboratory Tests 04/08/18 10:42: Glucometer 150H 04/08/18 16:00: Glucometer 208H 04/08/18 20:01: Glucometer 55*L 04/08/18 20:30: Glucometer 105 04/08/18 20:59: Glucometer 171H 04/09/18 05:27: Glucometer 154H Microbiology 04/07/18 Blood Culture - Preliminary, Resulted Jerson Presley 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 need to get him off vapotherm and back to [place] oxygen -Pt reports he is feeling much better and looks forward to going back to [facility]. -Will have PT assess patient while inpatient. Problems: (1) Renal insufficiency Assessment & Plan: stage III avoid nephrotoxic agents (2) COPD (chronic obstructive pulmonary disease) Qualifiers: Qualified Codes: J44.1 - Chronic obstructive pulmonary disease with (acute) exacerbation (3) Chronic atrial fibrillation (4) HTN (hypertension) Qualifiers: Qualified Codes: I10 - Essential (primary) hypertension (5) Acute on chronic respiratory failure Qualifiers: Qualified Codes: J96.21 - Acute and chronic respiratory failure with hypoxia ; J96.22 - Acute and chronic respiratory failure with hypercapnia (6) Elevated INR (7) Acute respiratory failure with hypoxia and hypercapnia Assessment & Plan: consult respiratory therapy. 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
[2018-04-09 08:00] VITALS: BP 184/70
[2018-04-09] MEDS: MAGNESIUM OXIDE (MAG-OX)400 MG TAB PO SCH ×2 (08:06→17:27)
[2018-04-09 08:24] LABS: BASOPHILS % (AUTO) 0 % (0-10); EOSINOPHILS # (AUTO) 0.1 10^3/uL (0.0-0.3); EOSINOPHILS % (AUTO) 2 % (0-10); HEMATOCRIT 28 % (40-54); HEMOGLOBIN 9.7 G/DL (13.3-17.7); LYMPHOCYTES # (AUTO) 1.2 X 10^3 (1.0-4.0); LYMPHOCYTES % (AUTO) 14 % (12-44); MEAN CORPUSCULAR HEMOGLOBIN 30 PG (25-34); MEAN CORPUSCULAR HGB CONC 34 G/DL (32-36); MEAN CORPUSCULAR VOLUME 88 FL (80-99); MEAN PLATELET VOLUME 10.3 FL (7.4-10.4); MONOCYTES % (AUTO) 12 % (0-12); NEUTROPHILS # (AUTO) 5.9 X 10^3 (1.8-7.8); NEUTROPHILS % (AUTO) 72 % (42-75); PLATELET COUNT 141 10^3/uL (130-400); RED BLOOD COUNT 3.21 10^6/uL (4.35-5.85); RED CELL DISTRIBUTION WIDTH 14.7 % (10.0-14.5); WHITE BLOOD COUNT 8.2 10^3/uL (4.3-11.0)
[2018-04-09 08:36] LABS: INR 2.2 (0.8-1.4); PROTHROMBIN TIME PATIENT 24.8 SEC (12.2-14.7)
[2018-04-09 08:44] LABS: ALBUMIN 2.4 GM/DL (3.2-4.5); BILIRUBIN,TOTAL 1.1 MG/DL (0.1-1.0); CALCIUM 8.4 MG/DL (8.5-10.1); CREATININE SERUM 1.19 MG/DL (0.60-1.30); MAGNESIUM 1.6 MG/DL (1.8-2.4); POTASSIUM 3.7 MMOL/L (3.6-5.0); TOTAL PROTEIN 5.6 GM/DL (6.4-8.2)
[2018-04-09] MEDS: inSUlin Protamine/ASPart 70/30 1 UNIT/0.01 ML DOSE SC SCH ×2 (09:22→21:50)
[2018-04-09] MEDS: CARVEDILOL 12.5 MG (COREG) TABLET PO SCH ×2 (09:23→23:54)
[2018-04-09] MEDS: OMEGA 3 (FISH OIL) 1000 MG CAP PO SCH (09:24)
[2018-04-09] MEDS: FUROSEMIDE 20 MG (LASIX) TAB PO SCH (09:24)
[2018-04-09] MEDS: DOCUSATE SODIUM 100 MG (COLACE) CAP PO SCH ×2 (09:24→23:54)
[2018-04-09] MEDS: KCL 20 MEQ TAB (K-DUR) PO SCH (09:24)
[2018-04-09] MEDS: LOSARTAN 100 MG (COZAAR) TABLET PO SCH (09:24)
[2018-04-09] MEDS: CLOPIDOGREL 75 MG (PLAVIX) TABLET PO SCH (09:24)
[2018-04-09] MEDS: AZITHROMYCIN 250 MG TAB (ZITHROMAX) PO SCH (09:24)
[2018-04-09] MEDS: DIGOXIN 0.125 MG (LANOXIN) TAB PO SCH (09:25)
--- NOTE | 2018-04-09 10:39 | Physical Therapy Evaluation ---
PT Evaluation-General Medical Diagnosis Admission Date Apr 07, 2018 at 09:00 Medical Diagnosis: Acute Respiratory Distress Onset Date: Apr 07, 2018 Therapy Diagnosis Therapy Diagnosis: weakness; abn gait Height/Weight Height (Feet): 5 Height (Inches): 11.00 Weight (Pounds): 215 Weight (Ounces): 0.0 Precautions Precautions/Isolations: Fall Prevention, Standard Precautions Weight Bear Status Right Lower Extremity: Right Weight Bearing/Tolerated Left Lower Extremity: Left Weight Bearing/Tolerated Referral Physician: Benjamin Reason for Referral: Evaluation/Treatment Medical History Pertinent Medical History: Atrial Fib, COPD, DM, GERD, HTN, Macular Degenertion , Neuropathy, PVD, Renal Insufficiency, Smoking Current History Admitted with progressive SOA. Found to be in acute respiratory distress. Currently on Vapotherm. Reviewed History: Yes Social History Home: Assisted (with plans to return home to his when able) Prior/Core FIM Prior Level of Function Functional [place] Measure 0=Not Assessed/NA 4=Minimal Assistance 1=Total Assistance 5=Supervision or Setup 2=Maximal Assistance 6=Modified [place] 3=Moderate Assistance 7=Complete [place] At the intermediate, he was min assist with mobilty; at home, he had been mod indep at a household level PT Evaluation-Current Subjective Agrees to PT. :No complaints. Wants to sit up in the chair. Pain Numeric Pain Scale: 0-No Pain Location: No Pain Reported Objective Patient Orientation: Person, Place, Time, Situation Problem Solving: Fair Attachments: Oxygen (vapotherm), IV ROM/Strength ROM Lower Extremities WFL Strength Lower Extremities grossly 4-/5 throughout Integumentary/Posture Integumentary refer to nursing notes. Bowel Incontinence: No Bladder Incontinence: Yes Posture rounded shoulders Neuromuscular (Tone, Coordination, Reflexes) intact and functional Sensory Vision: Functional Hearing: Functional Hand Dominance: Right Sensation Right Lower Extremit: Impaired Sensation Left Lower Extremity: Impaired Transfers Functional [place] Measure 0=Not Assessed/NA 4=Minimal Assistance 1=Total Assistance 5=Supervision or Setup 2=Maximal Assistance 6=Modified [place] 3=Moderate Assistance 7=Complete [place] Transfers (B, C, W/C) (FIM): 4 Supine to/from Sit: 4 (assist with his legs) Sit to/from Stand: 4 (CGA for safety with cues to sequence) bed t/f WC(FIM only if WC use): 4 (uses a fWW and min assist) Balance Sitting Static: Good Sitting Dynamic: Good Standing Static: Fair Standing Dynamic: Fair Treatment Up to chair after treatment with needs met. Assessment/Needs Pt presents with a decline in functional mobility and strength. He will beneift from short term PT to address his mobioity and strength to work to progress him back to his home. Rehab Potential: Fair PT Rod Buster Helper Goals Group Home Goals PT Group Home Goals Time Frame: Apr 16, 2018 Transfers (B,C,W/C) (FIM): 5 Gait (FIM): 2 Gait distance (FIM): 0=940-92 ft Gait Assistive Device: FWW PT Plan Problem List Problem List: Activity Tolerance, Functional Strength, Safety, Balance, Gait, Transfer, Bed Mobility Treatment/Plan Treatment Plan: Continue Plan of Care Treatment Plan: Bed Mobility, Education, Functional Activity Amanda, Functional Strength, Gait, Safety, Therapeutic Exercise, Transfers Treatment Duration: Apr 16, 2018 Frequency: 6 times per week Estimated Hrs Per Day: .25 hour per day Patient and/or Family Agrees t: Yes Safety Risks/Education Patient Education: Safety Issues Teaching Recipient: Patient Teaching Methods: Discussion Response to Teaching: Reinforcement Needed Discharge Recommendations Therapy D/C Recommendations: Fdc (TCU/NH) Time/GCodes Time In: 850 Time Out: 907 Total Billed Treatment Time: 17 Total Billed Treatment visit EVM 17 PIYUSH FAYE PT Apr 09, 2018 10:39
[2018-04-09 12:00] VITALS: BP 172/64
[2018-04-09] MEDS: ASPIRIN E.C. 81 MG (ECOTRIN) TAB PO SCH (14:23)
[2018-04-09 15:50] VITALS: BP 183/88
[2018-04-09 19:35] VITALS: BP 177/88
[2018-04-09] MEDS ORDERED: warFARin 5 MG (COUMADIN) TAB PO NR (20:19)
[2018-04-09] MEDS ORDERED: inSUlin NPH/REG (NovoLIN 70/30) CHARGE PER UNIT SQ ONE (23:30)
[2018-04-09] MEDS: POLYETHYLENE GLYCOL 17 GM (MIRALAX) PACK PO SCH (23:54)
[2018-04-10 00:33] VITALS: BP 156/88
[2018-04-10] MEDS: RT-ALBUTEROL/IPRATROPIUM 3 ML (DUONEB) VIAL INH SCH ×4 (02:31→14:25)
[2018-04-10 04:17] VITALS: BP 164/84
[2018-04-10] MEDS ORDERED: TROSPIUM 20 MG (SANCTURA) TAB PO SCH (06:00)
[2018-04-10] MEDS: FERROUS SULF 325 MG (IRON) TAB PO SCH (06:12)
[2018-04-10 06:14] LABS: BASOPHILS % (AUTO) 0 % (0-10); EOSINOPHILS % (AUTO) 0 % (0-10); HEMATOCRIT 29 % (40-54); HEMOGLOBIN 9.9 G/DL (13.3-17.7); LYMPHOCYTES # (AUTO) 0.8 X 10^3 (1.0-4.0); LYMPHOCYTES % (AUTO) 8 % (12-44); MEAN CORPUSCULAR HEMOGLOBIN 30 PG (25-34); MEAN CORPUSCULAR HGB CONC 35 G/DL (32-36); MEAN CORPUSCULAR VOLUME 87 FL (80-99); MEAN PLATELET VOLUME 10.7 FL (7.4-10.4); MONOCYTES # (AUTO) 0.7 X 10^3 (0.0-1.0); MONOCYTES % (AUTO) 7 % (0-12); NEUTROPHILS # (AUTO) 8.5 X 10^3 (1.8-7.8); NEUTROPHILS % (AUTO) 85 % (42-75); PLATELET COUNT 152 10^3/uL (130-400); RED BLOOD COUNT 3.28 10^6/uL (4.35-5.85); RED CELL DISTRIBUTION WIDTH 14.9 % (10.0-14.5); WHITE BLOOD COUNT 10.1 10^3/uL (4.3-11.0)
[2018-04-10 06:27] LABS: CALCIUM 8.6 MG/DL (8.5-10.1); CREATININE SERUM 1.17 MG/DL (0.60-1.30); POTASSIUM 3.7 MMOL/L (3.6-5.0)
[2018-04-10 08:00] VITALS: BP 178/84
[2018-04-10] MEDS: MAGNESIUM OXIDE (MAG-OX)400 MG TAB PO SCH (08:06)
[2018-04-10] MEDS: OMEGA 3 (FISH OIL) 1000 MG CAP PO SCH (08:06)
[2018-04-10] MEDS: FUROSEMIDE 20 MG (LASIX) TAB PO SCH (08:07)
[2018-04-10] MEDS: KCL 20 MEQ TAB (K-DUR) PO SCH (08:07)
[2018-04-10] MEDS: LOSARTAN 100 MG (COZAAR) TABLET PO SCH (08:07)
[2018-04-10] MEDS: CARVEDILOL 12.5 MG (COREG) TABLET PO SCH (08:07)
[2018-04-10] MEDS: AZITHROMYCIN 250 MG TAB (ZITHROMAX) PO SCH (08:07)
[2018-04-10] MEDS: DIGOXIN 0.125 MG (LANOXIN) TAB PO SCH (08:07)
[2018-04-10] MEDS: CLOPIDOGREL 75 MG (PLAVIX) TABLET PO SCH (08:07)
[2018-04-10] MEDS: DOCUSATE SODIUM 100 MG (COLACE) CAP PO SCH (08:07)
[2018-04-10] MEDS: inSUlin Protamine/ASPart 70/30 1 UNIT/0.01 ML DOSE SC SCH (08:08)
[2018-04-10 08:29] LABS: INR 1.8 (0.8-1.4); PROTHROMBIN TIME PATIENT 20.6 SEC (12.2-14.7)
[2018-04-10] MEDS ORDERED: MAGN400T6 PO (10:37)
--- NOTE | 2018-04-10 10:46 | Discharge Inst-Skilled Nursing ---
Discharge Inst-Skilled NF Patient Instructions Patient Problems: acute on chronic respiratory failure Diabetes mellitus II Patient Instructions: --transfer back to [facility] --PT/OT evaluate and treat- same goal to discharge to home --Nursing staff to check vitals daily hold blood pressure medications (losartan, carvedilol) for systolic <100, diastolic <50. ---Do not hold digoxin. --Check INR on 04/12/18, then check INR weekly --check blood sugar qAM, qHS --O2 via [place] at 4Liters to maintain spO2 >90% may titrate down --breathing treatment per med rec. --see medication rec for medications. --Follow up at [facility] 1100 04/20/18 Consult/Follow Up/Orders Follow Up Appt.: --Follow up at [facility] 1100 04/20/18 Skilled NF Admit to: [facility] Certification (SNF) I certify that SNF services are required to be given on an inpatient basis because of the above named patient's need for senior care care on a continuing basis for the conditions(s) for which he/she was receiving inpatient hospital services prior to his/her transfer to the SNF. Alf Facility Order: Nursing Services, Technical Support Associate-Evaluate & Treat, Physical Therapy-Evaluate & Treat Discharge Diet: ADA Diet Daily Activity as Tolerated: Yes New & Resume Previous Orders New & Resume Previous Orders resume previous orders --transfer back to [facility] --PT/OT evaluate and treat- same goal to discharge to home --Nursing staff to check vitals daily hold blood pressure medications (losartan, carvedilol) for systolic <100, diastolic <50. ---Do not hold digoxin. --Check INR on 04/12/18, then check INR weekly --check blood sugar qAM, qHS --O2 via [place] at 4Liters to maintain spO2 >90% may titrate down --breathing treatment per med rec. --see medication rec for medications. --Follow up at [facility] 1100 04/20/18 Hugo Sanchez Apr 10, 2018 10:39 HUGO SANCHEZ MD Apr 10, 2018 10:44
--- NOTE | 2018-04-10 10:49 | Discharge Summary ---
Diagnosis/Chief Complaint Date of Admission Apr 07, 2018 at 09:00 Date of Discharge April 10, 2018 Admission Diagnosis Admission Diagnosis (1) Renal insufficiency Assessment & Plan: stage III avoid nephrotoxic agents (2) COPD (chronic obstructive pulmonary disease) Qualifiers: Qualified Codes: J44.1 - Chronic obstructive pulmonary disease with (acute) exacerbation (3) Chronic atrial fibrillation (4) HTN (hypertension) (5) Acute on chronic respiratory failure Qualifiers: Qualified Codes: J96.21 - Acute and chronic respiratory failure with hypoxia ; J96.22 - Acute and chronic respiratory failure with hypercapnia (6) Elevated INR (7) COPD exacerbation (8) Acute respiratory failure with hypoxia and hypercapnia (9) Diabetes mellitus type 2, controlled, with complications Discharge Diagnosis (1) Renal insufficiency Assessment & Plan: stage III avoid nephrotoxic agents (2) COPD (chronic obstructive pulmonary disease) Qualifiers: Qualified Codes: J44.1 - Chronic obstructive pulmonary disease with (acute) exacerbation (3) Chronic atrial fibrillation (4) HTN (hypertension) Qualifiers: Qualified Codes: I10 - Essential (primary) hypertension (5) Acute on chronic respiratory failure Qualifiers: Qualified Codes: J96.21 - Acute and chronic respiratory failure with hypoxia ; J96.22 - Acute and chronic respiratory failure with hypercapnia (6) Elevated INR (7) Acute respiratory failure with hypoxia and hypercapnia (8) Hypokalemia (9) Diabetes mellitus type 2, controlled, with complications Qualifiers: Qualified Codes: E11.8 - Type 2 diabetes mellitus with unspecified complications; Z79.4 - nursing home (current) use of insulin Reason Hospital Visit 82 yo M admitted inpatient from the ER for acute COPD exacerbation, concern for pneumonia. He was residing at [facility] for SNF after a hospitalization last month. Patient reports he was doing alright until yesterday he had worsening trouble breathing- baseline oxygen 4L [place]- Therapy continued to work with him and today he said he could not participate. Oxygen saturation was 80s on 5L oxygen; so he was transferred to the ER this AM. No fevers, urinating alright; mental status stable. No other findings leading up to the acute hypoxia. Patient reports he feels much better with the vapotherm. Xray of his chest worse compared to February xray with more consolidation in lower lung hudson which supports his decreased breath sounds and hypoxia. IVF will be stopped. Discharge Summary Hospital Course Hospital Course 82 yo M admitted for respiratory failure. He was placed on vapotherm. IV lasix was given to help diurese and improve his breathing. He also was given a 1 time dose of dexamethasone to help with his COPD. Respiratory therapy was utilized to administer breathing treatments and titrate his oxygen requirements. He was able to get off vapotherm and oxygen saturations were staying in high 90s with 4L oxygen. Of note his chronic kidney disease stage iii was stable- po hydration and avoidance of nephrotoxic agents. Blood pressure was elevated on automatic cuff - will continue to monitor and compare to standing blood pressures as it is lower in office with standing. Hypokalemia was replaced. Diabetes- patient was maintained on lower dose of his insulin nph/regular as his blood sugar runs lower while inpatient due to food choices. Given patient's improvement he was deemed stable for discharge- --transfer back to [facility] --PT/OT evaluate and treat- same goal to discharge to home --Nursing staff to check vitals daily hold blood pressure medications (losartan, carvedilol) for systolic <100, diastolic <50. ---Do not hold digoxin. --Check INR on 04/12/18, then check INR weekly --check blood sugar qAM, qHS --O2 via [place] at 4Liters to maintain spO2 >90% may titrate down --breathing treatment per med rec. --see medication rec for medications. --Follow up at [facility] 1100am 04/20/18 Labs Procedures None. Discharge Physical Examination Allergies: Coded Allergies: sulfamethoxazole (Verified Allergy, Mild, RASH, 11/13/17) trimethoprim (Verified Allergy, Mild, RASH, 11/13/17) Vitals & I&Os General Appearance: Alert, Oriented X3, Cooperative HEENT: Atraumatic Respiratory: Clear to Auscultation Cardiovascular: Other (irregular rhythm, regular rate.) Abdominal: Normal Bowel Sounds, Soft Neuro: Normal Speech Psych/Mental Status: Mental Status NL Discharge Home Medications Reviewed and agree with Discharge Medication list on patient's Discharge Instruction sheet Condition at Discharge improved, near baseline Instructions to Patient/Family Please see electronic discharge instructions given to patient. Clinical Quality Measures DVT/VTE Risk/Contraindication: VTE Addressed: Yes Risk Factor Score Per Nursin RFS Level Per Nursing on Admit: 3=High Other: Pt is on warfarin- LAURA,RUBEN C MD Apr 10, 2018 10:49
[2018-04-10] MEDS ORDERED: IPRA3AMP31 INH (10:51)
--- NOTE | 2018-04-10 10:59 | Physical Therapy Daily Note ---
PT Daily Note-Current Subjective Patient is very agreeable to participate with PT. Pain Numeric Pain Scale: 0-No Pain Location: No Pain Reported Mental Status Patient Orientation: Normal For Age Attachments: Oxygen Transfers Functional [place] Measure 0=Not Assessed/NA 4=Minimal Assistance 1=Total Assistance 5=Supervision or Setup 2=Maximal Assistance 6=Modified [place] 3=Moderate Assistance 7=Complete IndependenceIRFPAI Quality Coding Scale 6 Independent with activity with or without an assistive device 5 Patient requires set up or clean up by helper. Patient completes activity by themselves 4 Supervision or touching assist (CGA). [place] provide cues , steadying assist 3 The helper provides less than half the effort to complete the activity 2 The helper provides more than half the effort to complete the activity 1 Dependent. The helper does all the effort to complete an activity 7 Patient refused to complete or attempt activity 9 The patient did not perform the activity before the current illness or injury 88 Not attempted due to Medical conditions or safety concerns Transfers (B, C, W/C) (FIM): 5 Scootin Rollin Supine to/from Sit: 6 Sit to/from Stand: 5 Bed to/from Chair: 5 Weight Bearing Right Lower Extremity: Right Weight Bearing/Tolerated Left Lower Extremity: Left Weight Bearing/Tolerated Gait Training Gait (FIM): 5 Distance (FIM): 3=150 ft Distance: 150' Gait Level of Assist: 5 Gait Assistive Device: FWW safe and functional Exercises Supine Ex: Ankle pumps, Quad Set, Heel Slides Supine Reps: 15 Seated Therapy Exercises: Ankle pumps, Long arc quads Seated Reps: 15 Assessment Patient tolerated treatment well and will dismiss to [place] on this date. PT Assisted Goals Layer Out Goals PT Layer Out Goals Time Frame: Apr 16, 2018 Transfers (B,C,W/C) (FIM): 5 Gait (FIM): 2 Gait distance (FIM): 7=901-74 ft Gait Assistive Device: FWW PT Plan Treatment/Plan Treatment Plan: Discontinue PT, goals met Treatment Plan: Bed Mobility, Education, Functional Activity Amanda, Functional Strength, Gait, Safety, Therapeutic Exercise, Transfers Treatment Duration: Apr 16, 2018 Frequency: 6 times per week Estimated Hrs Per Day: .25 hour per day Patient and/or Family Agrees t: Yes Time/GCodes Time In: 1002 Time Out: 1025 Total Billed Treatment Time: 23 Total Billed Treatment 1 visit EX 8 min GT 15 min NIKHIL LEBLANC PT Apr 10, 2018 10:59
[2018-04-10 12:00] VITALS: BP 151/77
[2018-04-10] MEDS: ASPIRIN E.C. 81 MG (ECOTRIN) TAB PO SCH (13:35)
== END 2018-04-10 14:50 | DRG 189 ==
LOC: EDUNIT# 07:43 → ER 07:44 → 4TH 09:00
PROVIDERS: ADMIT Family Medicine; ATTEND Family Medicine
DX: J96.01 Acute respiratory failure with hypoxia (principal); J96.02 Acute respiratory failure with hypercapnia; J44.1 Chronic obstructive pulmonary disease with (acute) exacerbation; R79.1 Abnormal coagulation profile; E87.6 Hypokalemia; I12.9 Hypertensive chronic kidney disease with stage 1 through stage 4 chronic kidney disease, or unspecified chronic kidney disease; N18.3 Chronic kidney disease, stage 3 (moderate); I48.2 Chronic atrial fibrillation; E11.42 Type 2 diabetes mellitus with diabetic polyneuropathy; K21.9 Gastro-esophageal reflux disease without esophagitis; H35.30 Unspecified macular degeneration; G47.30 Sleep apnea, unspecified; C44.91 Basal cell carcinoma of skin, unspecified; E78.00 Pure hypercholesterolemia, unspecified; Z79.4 Long term (current) use of insulin; Z87.891 Personal history of nicotine dependence; Z79.01 Long term (current) use of anticoagulants; Z79.02 Long term (current) use of antithrombotics/antiplatelets; Z79.82 Long term (current) use of aspirin; Z90.79 Acquired absence of other genital organ(s)
CPT/HCPCS: 36415; 36600; 71045; 71046; 80048; 80053; 82805; 82962; 83605; 83735; 84484; 85025; 85610; 85730; 87040; 93005; 94640; 94664; 94760; 96365

== ENCOUNTER 2018-05-03 06:46 | Inpatient (IN) | payer MEDICARE, BC ==
[~2018-05-03] VITALS: Ht 180.3 cm; Wt 105.7 kg
[2018-05-03] VITALS (17 sets, daily range): BP systolic 134–191; BP diastolic 67–92
[~2018-05-03 06:46] MED LIST changes: +IPRA3AMP31 INH; +LINE600T33 PO; -LINE600T7 PO; +LOSA100T28 PO; +LOSA50TA2 PO; +OXYB10TA PO
[2018-05-03] MEDS ORDERED: RT-ALBUTEROL SULF 2.5 MG/3 ML PRE-MIX VIAL INH STA (06:51)
[2018-05-03] MEDS ORDERED: NS IV 1000 ML 1,000 ML IV SCH (06:51)
--- NOTE | 2018-05-03 06:59 | ED Respiratory ---
General Chief Complaint: Respiratory Problems Stated Complaint: SOB Source: patient, EMS Exam Limitations: clinical condition History of Present Illness Date Seen by Provider: May 03, 2018 Time Seen by Provider: 06:45 Initial Comments Patient presents to ER by EMS with chief complaint of shortness of breath. EMS reports patient has a history of dementia and was found this morning rounds to be short of breath with sats in the upper 60s. Currently they are out of oxygen bottles at the assisted so he was using borrowed oxygen concentrator at 4 L and satting 95% when they were arrived. They heard wheezes bilaterally and he has a history of COPD so they gave him a DuoNeb breathing treatment. Patient is afebrile with a blood sugar 185. Patient does not give any meaningful history. Allergies and Home Medications Allergies Coded Allergies: sulfamethoxazole (Verified Allergy, Mild, RASH, 11/13/17) trimethoprim (Verified Allergy, Mild, RASH, 11/13/17) Home Medications Aspirin 81 Mg Tablet.dr, 81 MG PO 1400, (Reported) Carvedilol 12.5 Mg Tablet, 18.75 MG PO BID, (Reported) TAKES 1 & 1/2 (12.5MG) TABLETS Clopidogrel Bisulfate 75 Mg Tablet, 75 MG PO DAILY, (Reported) Digoxin 125 Mcg Tablet, 125 MCG PO DAILY, (Reported) Docusate Sodium 100 Mg Capsule, 100 MG PO BID, (Reported) Ferrous Sulfate 325 Mg Tablet, 325 MG PO BID, (Reported) Furosemide 20 Mg Tablet, 20 MG PO DAILY, (Reported) Guaifenesin/Codeine 10 Ml Syrp, 5 ML PO Q4H PRN for COUGH, (Reported) Insuln Asp Prt/Insulin Aspart 300 Units/3 Ml Solution, 14 UNITS SQ DAILY, ( Reported) Insuln Asp Prt/Insulin Aspart 300 Units/3 Ml Solution, 15 UNITS SQ HS, (Reported ) Ipratropium/Albuterol Sulfate 3 Ml Ampul.neb, 3 ML INH RTQ4HR PRN for DYSPNEA Prescribed by: RUBEN SANCHEZ on 04/10/18 1051 Losartan Potassium 100 Mg Tablet, 100 MG PO DAILY, (Reported) Magnesium Oxide 400 Mg Tablet, 400 MG PO BIDPC Prescribed by: RUBEN SANCHEZ on 04/10/18 1037 [place] 3 Polyunsat Fatty Acids 1,000 Mg Cap, 1,000 MG PO DAILY, (Reported) Polyethylene Glycol 3350 17 Gm Powd.pack, 17 GM PO DAILY, (Reported) Potassium Chloride 20 Meq Tablet.er, 20 MEQ PO DAILY, (Reported) Ranitidine HCl 150 Mg Tablet, 150 MG PO BID, (Reported) Trospium Chloride 60 Mg Cap.er.24h, 60 MG PO DAILY, (Reported) END DATE 04-18-18 AFTER THAT SWITCH TO OXYBUTYNIN ER 10MG DAILY Warfarin Sodium 5 Mg Tablet, 7.5 MG PO SuMoWeFrSa, (Reported) TAKES 1 & 1/2 (5MG) TABLETS Warfarin Sodium 5 Mg Tablet, 5 MG PO TuTh, (Reported) Patient Home Medication List Home Medication List Reviewed: Yes Review of Systems Constitutional: see HPI (patient gives no meaningful review of systems secondary to baseline dementia) Past Dsgunfv-Jqkgqk-Hlduyo Hx Patient Social History Smoking Status: Former Smoker Type Used: Cigarettes Former Smoker, Quit: Aug 20, 2005 2nd Hand Smoke Exposure: No Recent Foreign Travel: No Contact w/Someone Who Travel: No Recent Hopitalizations: Yes Immunizations Up To Date Tetanus Booster (TDap): Less than 5yrs PED Vaccines UTD: No Date of Pneumonia Vaccine: Jun 29, 2017 Date of Influenza Vaccine: Jul 16, 2017 Seasonal Allergies Seasonal Allergies: No Past Medical History Surgeries: Yes (CATARACTS, CARPAL TUNNEL, BILAT.THUMBS) Eye Surgery, Orthopedic, Prostatectomy, Tonsillectomy, Vascular Surgery Respiratory: Yes (CPAP AT HS; ACUTE ON CHRONIC RESPIRATORY FAILURE) Pneumonia, Sleep Apnea, COPD Currently Using CPAP: No Currently Using BIPAP: No Cardiac: Yes Atrial Fibrillation, High Cholesterol, Hypertension Neurological: Yes (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) Neuropathy Reproductive Disorders: No Sexually Transmitted Disease: No HIV/AIDS: No Genitourinary: Yes (TURP) Benign Prostatic Hyperpl, Renal Failure, UTI-Chronic Gastrointestinal: Yes Gastroesophageal Reflux, Chronic Constipation Musculoskeletal: Yes (GENERALIZED WEAKNESS; FREQUENT FALLS ) Endocrine: Yes Diabetes, Insulin dep HEENT: Yes Macular Degeneration Hearing Impairment: Hard of Hearing Cancer: Yes (BASAL CELL CARCINOMA) Skin Did You Recieve Any Treatments: No Psychosocial: Yes Sleep Difficulties Integumentary: Yes (CELLULITIS IN LEFT KNEE EARLY OCTOBER 2013) Recent Skin Changes Blood Disorders: No Adverse Reaction/Blood Tranf: No Family Medical History COPD 19 FATHER Colon cancer 19 MOTHER Diabetes mellitus G8 SISTER Drug abuse G8 SISTER Lung cancer 19 FATHER Polio G8 BROTHER Sarcoidosis G8 BROTHER Cancer Physical Exam Vital Signs - First Documented 05/03/18 06:50 Temp 97.2 Pulse 120 Resp 29 B/P (MAP) 189/107 (134) Pulse Ox 94 O2 Delivery Simple Mask O2 Flow Rate 10.00 Capillary Refill : Height: 5'11.00" Weight: 213lbs. 6.0oz. 96.499150ui; 31.0 BMI Method:Stated General Appearance: WD/WN, moderate distress Eyes: Bilateral Eye Normal Inspection, Bilateral Eye PERRL, Bilateral Eye EOMI HEENT: PERRL/EOMI, normal ENT inspection, TMs normal, pharynx normal ( oropharynx is dry) Neck: non-tender, normal inspection Respiratory: chest non-tender, respiratory distress (moderate), decreased breath sounds, accessory muscle use, wheezing Cardiovascular: normal peripheral pulses, regular rate, rhythm Gastrointestinal: normal bowel sounds, non tender, soft Neurologic/Psychiatric: alert, other (flat affect does not attempt to answer questions. GCS 11 points) Focused Exam Lactate Level 05/03/18 06:59: Lactic Acid Level 0.70 Lactic Acid Level Laboratory Tests Test 05/03/18 06:59 Lactic Acid Level 0.70 MMOL/L (0.50-2.00) Procedures/Interventions Date of ETT Placement: Oct 13, 2016 Time of ETT Placement: 2129 Progress/Results/Core Measures Suspected Sepsis SIRS Temperature: Pulse: Respiratory Rate: Laboratory Tests 05/03/18 06:51: White Blood Count 16.8H Blood Pressure / Mean: 05/03/18 06:59: Lactic Acid Level 0.70 Laboratory Tests 05/03/18 06:51: Creatinine 1.21, INR Comment 4.1H, Platelet Count 232, Total Bilirubin 1.3H Results/Orders Lab Results Laboratory Tests Test 05/03/18 06:51 05/03/18 06:59 05/03/18 07:29 Range/Units White Blood Count 16.8 H 4.3-11.0 10^3/uL Red Blood Count 3.76 L 4.35-5.85 10^6/uL Hemoglobin 11.3 L 13.3-17.7 G/DL Hematocrit 33 L 40-54 % Mean Corpuscular Volume 88 80-99 FL Mean Corpuscular Hemoglobin 30 25-34 PG Mean Corpuscular Hemoglobin Concent 34 32-36 G/DL Red Cell Distribution Width 15.4 H 10.0-14.5 % Platelet Count 232 130-400 10^3/uL Mean Platelet Volume 10.3 7.4-10.4 FL Neutrophils (%) (Auto) 81 H 42-75 % Lymphocytes (%) (Auto) 10 L 12-44 % Monocytes (%) (Auto) 8 0-12 % Eosinophils (%) (Auto) 1 0-10 % Basophils (%) (Auto) 0 0-10 % Neutrophils # (Auto) 13.5 H 1.8-7.8 X 10^3 Lymphocytes # (Auto) 1.7 1.0-4.0 X 10^3 Monocytes # (Auto) 1.4 H 0.0-1.0 X 10^3 Eosinophils # (Auto) 0.1 0.0-0.3 10^3/uL Basophils # (Auto) 0.0 0.0-0.1 10^3/uL Neutrophils % (Manual) 79 % Lymphocytes % (Manual) 7 % Monocytes % (Manual) 10 % Reactive Lymphocytes 4 % Blood Morphology Comment NORMAL Prothrombin Time 39.8 H 12.2-14.7 SEC INR Comment 4.1 H 0.8-1.4 Activated Partial Thromboplast Time 62 H 24-35 SEC Sodium Level 135 135-145 MMOL/L Potassium Level 3.9 3.6-5.0 MMOL/L Chloride Level 102 98-107 MMOL/L Carbon Dioxide Level 27 21-32 MMOL/L Anion Gap 6 5-14 MMOL/L Blood Urea Nitrogen 17 7-18 MG/DL Creatinine 1.21 0.60-1.30 MG/DL Estimat Glomerular Filtration Rate 58 BUN/Creatinine Ratio 14 Glucose Level 176 H 70-105 MG/DL Calcium Level 8.6 8.5-10.1 MG/DL Total Bilirubin 1.3 H 0.1-1.0 MG/DL Aspartate Amino Transf (AST/SGOT) 13 5-34 U/L Alanine Aminotransferase (ALT/SGPT) 11 0-55 U/L Alkaline Phosphatase 88 40-136 U/L C-Reactive Protein High Sensitivity 1.76 H 0.00-0.50 MG/DL B-Type Natriuretic Peptide 521.2 H <100.0 PG/ML Total Protein 6.5 6.4-8.2 GM/DL Albumin 3.0 L 3.2-4.5 GM/DL Lactic Acid Level 0.70 0.50-2.00 MMOL/L Blood Gas Puncture Site RT RAD Blood Gas Patient Temperature 97.2 Arterial Blood pH 7.30 *L 7.37-7.43 Arterial Blood Partial Pressure CO2 55 H 35-45 MMHG Arterial Blood Partial Pressure O2 75 L 79-93 MMHG Arterial Blood HCO3 27 23-27 MMOL/L Arterial Blood Total CO2 28.6 21.0-31.0 MMOL/L Arterial Blood Oxygen Saturation 94 94-100 % Arterial Blood Base Excess 0.9 -2.5-2.5 MMOL/L Kadeem Test YES-POS Blood Gas Ventilator Setting NO Blood Gas Inspired Oxygen 40% My Orders Orders - FARZAD BAE Albuterol Pre-Mix Nebs (Rt) (Proventil (05/03/18 07:00) Svn Small Volume Nebulizer (05/03/18 06:50) Arterial Blood Gas (05/03/18 06:51) BNP (05/03/18 06:51) Cbc With Automated Diff (05/03/18 06:51) Comprehensive Metabolic Panel (05/03/18 06:51) Hs C Reactive Protein (05/03/18 06:51) Chest 1 View, Ap/Pa Only (05/03/18 06:51) Albuterol Pre-Mix Nebs (Rt) (Proventil (05/03/18 06:51) Saline Lock/Iv-Start (05/03/18 06:51) Ns Iv 1000 Ml (Sodium Chloride 0.9%) (05/03/18 06:51) Svn Small Volume Nebulizer (05/03/18 06:51) Blood Culture (05/03/18 06:51) Sputum Culture (05/03/18 06:51) Urinalysis (05/03/18 06:51) Urine Culture (05/03/18 06:51) Protime With Inr (05/03/18 06:51) Partial Thromboplastin Time (05/03/18 06:51) Saline Lock/Iv-Start (05/03/18 06:51) Vital Signs Adult Sepsis Patie Q15M (05/03/18 06:51) O2 (05/03/18 06:51) Remove Rings In Anticipation O (05/03/18 06:51) Lactic Acid Analyzer (05/03/18 06:51) Cefepime Injection (Maxipime Injection) (05/03/18 07:00) Bipap (Bilevel) Set Up (05/03/18 07:09) Manual Differential (05/03/18 06:51) Arterial Blood Gas (05/03/18 07:29) Medications Given in ED Current Medications Medications Dose Ordered Sig/Nidhi Route Start Time Stop Time Status Last Admin Dose Admin Cefepime HCl 1000 mg/Sodium Chloride 50 ml @ 100 mls/hr ONCE ONCE IV 05/03/18 07:00 05/03/18 07:29 DC 05/03/18 07:15 100 MLS/HR Vital Signs/I&O 05/03/18 05/03/18 05/03/18 05/03/18 06:50 06:58 07:10 08:25 Temp 97.2 Pulse 120 86 80 Resp 29 30 18 B/P (MAP) 189/107 (134) 134/69 (90) Pulse Ox 94 94 92 96 O2 Delivery Simple Mask Simple Mask NIV Bilevel O2 Flow Rate 10.00 10.00 40.00 Capillary Refill : Progress Note #1: Time: 06:58 Progress Note Tachycardia and tachypnea although his sats are much improved on oxygen going to obtain a sepsis workup patient is a history of A. fib/A flutter which could account for his high heart rate. Blood pressure is elevated. We are going to obtain a VBG and give him 5 more milligrams of albuterol. We'll get a chest x- ray and reevaluate. Progress Note #2: Time: 07:39 Progress Note Quite a bit of increased work of breathing so we put him on BiPAP 12/5 with a FiO2 of 40% obtained ABG and started a cefepime 1 g IV. He is a little more alert and asking questions now still confused about how he got here. He is looking much more comfortable however. Breath sounds are still good no crackles heard. Chest x-ray shows some pulmonary edema rather so we plan to hold his IV fluids at about half a liter. Elevated white count of nearly 17,000 and his initial pH is 7.30 and a CO2 of 55. Plan for admission for COPD exacerbation versus CHF. Finally we'll give him 125 milligrams of Solu-Medrol. Echocardiogram from July [address] Niño: Systolic function normal EF 55-60%. Mild regurgitation and mitral valve. Taken, sclerotic aortic valve. Mild to moderate regurgitation and tricuspid. Patient had a stress test February 2018, [address] Niño: Intermittent left bundle branch block throughout test. No significant ischemia. Diagnostic Imaging Diagonstic Imaging: Xray Plain Films/CT/US/NM/MRI: chest (1v) Reviewed: Reviewed by Me Departure Communication (Admissions) Time/Spoke to Admitting Phy: 08:30 Discussed case lab imaging findings with Dr. Chamberlain and he agrees to accept the patient. He is okay to continue the antibiotics and he will reevaluate the patient. Impression Primary Impression: Acute respiratory failure with hypoxia and hypercapnia Additional Impressions: COPD (chronic obstructive pulmonary disease) Qualified Codes: J44.1 - Chronic obstructive pulmonary disease with (acute) exacerbation Supratherapeutic INR Disposition: ADMITTED INPATIENT Condition: Stable Admissions Decision to Admit Reason: Admit from ER (General) Decision to Admit/Date: May 03, 2018 Time/Decision to Admit Time: 07:44 Departure-Patient Inst. Referrals: RUBEN SANCHEZ MD (PCP/Family) Primary Care Physician Copy Copies To 1: RUBEN SANCHEZ MD, TITUS J May 03, 2018 06:59
[2018-05-03] MEDS ORDERED: RT-ALBUTEROL SULF 2.5 MG/3 ML PRE-MIX VIAL INH SCH (07:00)
[2018-05-03] MEDS ORDERED: CEFEPIME INJECTION 1,000 MG in NS (IVPB) 50 ML IV ONE (07:00)
[2018-05-03 07:11] LABS: BASOPHILS % (AUTO) 0 % (0-10); EOSINOPHILS # (AUTO) 0.1 10^3/uL (0.0-0.3); EOSINOPHILS % (AUTO) 1 % (0-10); HEMATOCRIT 33 % (40-54); HEMOGLOBIN 11.3 G/DL (13.3-17.7); INR 4.1 (0.8-1.4); LYMPHOCYTES # (AUTO) 1.7 X 10^3 (1.0-4.0); LYMPHOCYTES % (AUTO) 10 % (12-44); MEAN CORPUSCULAR HEMOGLOBIN 30 PG (25-34); MEAN CORPUSCULAR HGB CONC 34 G/DL (32-36); MEAN CORPUSCULAR VOLUME 88 FL (80-99); MEAN PLATELET VOLUME 10.3 FL (7.4-10.4); MONOCYTES # (AUTO) 1.4 X 10^3 (0.0-1.0); MONOCYTES % (AUTO) 8 % (0-12); NEUTROPHILS # (AUTO) 13.5 X 10^3 (1.8-7.8); NEUTROPHILS % (AUTO) 81 % (42-75); PLATELET COUNT 232 10^3/uL (130-400); PROTHROMBIN TIME PATIENT 39.8 SEC (12.2-14.7); RED BLOOD COUNT 3.76 10^6/uL (4.35-5.85); RED CELL DISTRIBUTION WIDTH 15.4 % (10.0-14.5); WHITE BLOOD COUNT 16.8 10^3/uL (4.3-11.0)
[2018-05-03 07:17] LABS: BILIRUBIN,TOTAL 1.3 MG/DL (0.1-1.0); CALCIUM 8.6 MG/DL (8.5-10.1); CREATININE SERUM 1.21 MG/DL (0.60-1.30); POTASSIUM 3.9 MMOL/L (3.6-5.0); TOTAL PROTEIN 6.5 GM/DL (6.4-8.2)
--- NOTE | 2018-05-03 07:29 | Diagnostic Imaging Report ---
INDICATION: Shortness of air. COMPARISON: 04/08/2018. FINDINGS: Worsening of bilateral interstitial and airspace opacities, greatest in the lung bases. Small bilateral pleural effusions are present. No pneumothorax. Cardiomegaly is noted. IMPRESSION: Worsening of pulmonary opacities that are most suggestive of pulmonary edema and small bilateral pleural effusions. Dictated by: Dictated on workstation # [id number]
[2018-05-03 07:36] LABS: ABG BASE EXCESS 0.9 MMOL/L (-2.5-2.5); ABG OXYGEN SATURATION 94 % (94-100); ABG PCO2 55 MMHG (35-45); ABG PO2 75 MMHG (79-93); ABG TCO2 28.6 MMOL/L (21.0-31.0)
[2018-05-03 07:38] LABS: ALLENS TEST YES-POS; INSPIRED O2 40%; PATIENT TEMP 97.2; VENTILATOR NO
[2018-05-03 07:54] LABS: LYMPHOCYTES % (MANUAL) 7 %; MONOCYTES % (MANUAL) 10 %; NEUTROPHILS % (MANUAL) 79 %; RBC MORPH NORMAL; REACTIVE LYMPHOCYTES 4 %
--- OUTSIDE RECORDS SUMMARY | 2018-05-03 09:20 | XMS REPORT | Clinical Summary ---
Author Author [facility] Organization [facility] Address Unknown Phone Unavailable Care Team Providers Care Calciner Feeder Name Role Phone JasonCailin Unavailable Unavailable Ru Gomez MD PCP Ronen Agosto MD Unavailable Source Comments Some departments are not documenting in the electronic medical record. If you do not see the information that you expected, contact Release of Information in the Health Information Management department at [phone] for further assistance in locating additional records.[facility] Allergies Active Allergy Reactions Severity Noted [...] breath, Essential hypertension, Coronary artery disease involving otoe-[place] coronary artery of o[place] heart without angina pectoris aspirin EC 81 [...] and Noc ox Coronary artery disease involving otoe-[place] coronary artery of o[place]e-[place] heart 10/2014 without angina pectoris Diabetic neuropathy [...]
[2018-05-03] MEDS ORDERED: RT-ALBUTEROL/IPRATROPIUM 3 ML (DUONEB) VIAL INH PRN (11:00)
[2018-05-03] MEDS ORDERED: ACET-2267 PO (11:04)
[2018-05-03] MEDS ORDERED: OXYB10TA PO (11:09)
[2018-05-03] MEDS ORDERED: SILV20CR14 TP (11:09)
[2018-05-03] MEDS ORDERED: DOXY100T2 PO (11:09)
[2018-05-03] MEDS ORDERED: AZITHROMYCIN 500 MG/NS 250 ML IVPB IV NR ×2 (11:45)
[2018-05-03] MEDS ORDERED: ONDANSETRON 4 MG/2 ML (SDV) Z0FRAN IV PRN (11:45)
[2018-05-03] MEDS ORDERED: ACETAMINOPHEN 500 MG TAB (TYLENOL) PO PRN (11:45)
[2018-05-03] MEDS ORDERED: CEFEPIME 1 GM/NS 50 ML IV SCH ×2 (12:00)
[2018-05-03] MEDS ORDERED: CATHETER FLUSH 10 ML SYR IV PRN (12:00)
--- NOTE | 2018-05-03 12:26 | History & Physical-Hospitalist ---
History of Present Illness HPI/Chief Complaint Patient presents to ER by EMS with chief complaint of shortness of breath. EMS reports patient has a history of dementia and was found this morning rounds to be short of breath with sats in the upper 60s. Currently they [facility] so he was using borrowed oxygen concentrator at 4 L and satting 95% when they were arrived. They heard wheezes bilaterally and he has a history of COPD so they gave him a DuoNeb breathing treatment. Patient is afebrile with a blood sugar 185. Patient does not give any meaningful history Upon my arrival the patient was on BiPAP was conversant. Reports that his cough is been pretty much at baseline a nonproductive and does not recall what happened this morning. His is present at the bedside and states that he has a concentrator but it may not of been working and they did switch him to somebody else's oxygen with a borrowed in the form of bottled oxygen on 4 L. Currently he is on BiPAP with saturations between 90 and 94 percent I believe 4 L supplemental oxygen currently flowing. He denies shortness of breath at rest and was sleeping upon my arrival. Vital signs are stable see below review of systems essentially negative Date Seen 05/03/18 Time Seen by Provider: 12:23 Attending Physician Hiram Chamberlain MD PCP Hugo Alexander MD Referring Physician Date of Admission May 03, 2018 at 08:30 Home Medications & Allergies Home Medications Reviewed patient Home Medication Reconciliation performed by pharmacy medication reconciliations instrument and electrical technician and/or nursing. Patients Allergies have been reviewed. Allergies Allergies Coded Allergies sulfamethoxazole (Verified Allergy, Mild, RASH, 11/13/17) trimethoprim (Verified Allergy, Mild, RASH, 11/13/17) Past Ouedmqp-Djotap-Bpsrim Hx Past Med/Social Hx: Reviewed and Corrections made Patient Social History Alcohol Use: Denies Use Recreational Drug Use: No Smoking Status: Former Smoker Former Smoker, Quit: Aug 20, 2005 Type Used: Cigarettes 2nd Hand Smoke Exposure: No Recent Foreign Travel: No Contact w/other who traveled: No Recent Hopitalizations: No Recent Infectious Disease Expo: No Immunizations Up To Date Tetanus Booster (TDap): Less than 5yrs Pediatric: No Date of Pneumonia Vaccine: Jun 29, 2017 Date of Influenza Vaccine: Jul 16, 2017 Seasonal Allergies Seasonal Allergies: No Past Medical History Surgeries: Eye Surgery, Orthopedic, Prostatectomy, Tonsillectomy, Vascular Surgery Respiratory: COPD, Pneumonia, Sleep Apnea Currently Using CPAP: No Currently Using BIPAP: No Cardiac: Atrial Fibrillation, High Cholesterol, Hypertension Neurological: Neuropathy Reproductive: No Sexually Transmitted Disease: No HIV/AIDS: No Genitourinary: Benign Prostatic Hyperpl, Renal Failure, UTI-Chronic Gastrointestinal: Gastroesophageal Reflux, Chronic Constipation Endocrine: Diabetes, Insulin dep HEENT: Macular Degeneration Hearing Impairment: Hard of Hearing Cancer: Skin Did You Recieve Any Treatments: No Psychosocial: Sleep Difficulties Skin/Integumentary: Recent Skin Changes History of Blood Disorders: No Adverse Reaction to Blood Brandt: No Family History COPD 19 FATHER Colon cancer 19 MOTHER Diabetes mellitus G8 SISTER Drug abuse G8 SISTER Lung cancer 19 FATHER Polio G8 BROTHER Sarcoidosis G8 BROTHER Cancer Review of Systems Constitutional: No no symptoms reported; see HPI; No chills, No diaphoresis, No dizziness, No fever; malaise, weakness; No weight gain, No weight loss, No other Respiratory: cough, short of breath (Earlier improved on BiPAP), wheezing Cardiovascular: no symptoms reported, see HPI; No chest pain; edema; No Hx of Intervention, No palpitations, No syncope, No vascular heart diseas, No other Physical Exam Physical Exam Vital Signs Vital Signs - First Documented 05/03/18 05/03/18 06:50 10:59 Temp 97.2 Pulse 120 Resp 29 B/P (MAP) 189/107 (134) Pulse Ox 94 O2 Delivery Simple Mask O2 Flow Rate 10.00 FiO2 40 Capillary Refill : Less Than 3 Seconds Height, Weight, BMI Height: 5'11.00" Weight: 213lbs. 6.0oz. 96.693169ry; 29.8 BMI Method:Stated General Appearance: No Apparent Distress, Chronically ill Neck: Full Range of Motion, Normal Inspection, Non Tender, Supple Respiratory: Other (Mild wheezing noted with cough poor air movement noted diminished breath sounds posteriorly few dry sounding basilar rales) Cardiovascular: No Gallop, No JVD, No Murmur, Irregularly Irregular Gastrointestinal: Normal Bowel Sounds, No Organomegaly, No Pulsatile Mass, Non Tender, Soft Extremity: Pedal Edema (Several small shallow open sores right tibia with 2+ edema and compression gutierres from Devin wrap no significant surrounding erythema extremities are cool without rubor or cyanosis no evidence for a sending lymphangitis small sore second right toe no current drainage 1+ edema left lower extremity with chronic venous insufficiency change no dorsalis pedis or posterior tibial pulses noted bilaterally) Neurologic/Psychiatric: Depressed Affect Skin: Pallor Results Results/Procedures Labs Laboratory Tests 05/03/18 06:51 Patient resulted labs reviewed. Assessment/Plan Admission Diagnosis 1. Acute COPD exacerbation with secondary hypoxia likely aggravated by lack of oxygen therapy in an individual with severe COPD that is O2 dependent. For now continue steroid and bronchodilator therapy. There is no overt evidence for pneumonia and with only few bacteria noted with 5-10 white cells doubt urinary tract infection will continue oral doxycycline patient was receiving for cellulitis. 2. Acute on chronic diastolic heart failure secondary to hypoxia with mild pulmonary edema. On BiPAP symptoms are improving consider adding elevated BNP creatinine ratio will hold diuretic therapy and continue other antihypertensive medications for now. 3. Chronic atrial fibrillation rate controlled. 4. Over anticoagulation/thrombophilia possibly aggravated by doxycycline will hold Coumadin repeat INR in the morning. 5. Peripheral vascular disease angioplasty last year per Dr. Nguyen no stent placement at that time and no reported history of stents and certainly nothing recent patient is at significant bleeding risk will hold aspirin and Plavix today if INR is back to therapeutic range/2-3 consider resuming Plavix and Coumadin. With no recent stent placement apparently anything in the last year if any history of stent at all triple therapy is not indicated and risk for bleeding outweigh any potential benefits would not resume aspirin therapy at this time. 6. Currently physical examination is not compatible with cellulitis but considering tenuous respiratory status and abnormal chest x-ray with we will resume doxycycline by mouth 100 mg twice a day Admission Status: Inpatient Order (span 2 midnights) Reason for Inpatient Admission: See above Critical Care Critically Ill Patient Clinical Quality Measures DVT/VTE Risk/Contraindication: Risk Factor Score Per Nursin RFS Level Per Nursing on Admit: 4+=Very High HIRAM CHAMBERLAIN MD May 03, 2018 12:26
[2018-05-03] MEDS: inSUlin ASPART (NovoLOG) 1 UNIT/0.01 ML (CHARGE PER UNIT) SC SCH ×3 (13:14→20:16)
[2018-05-03] MEDS ORDERED: guaiFENesin/DM (ROBITUSSIN DM) 10 ML UDC PO PRN (13:30)
[2018-05-03] MEDS: LOSARTAN 100 MG (COZAAR) TABLET PO SCH (13:55)
[2018-05-03] MEDS: DOCUSATE SODIUM 100 MG (COLACE) CAP PO SCH ×2 (13:55→20:16)
[2018-05-03] MEDS: FAMOTIDINE 20 MG (PEPCID) TABLET PO SCH ×2 (13:55→20:16)
[2018-05-03] MEDS: CARVEDILOL 12.5 MG (COREG) TABLET PO SCH ×2 (13:56→20:16)
[2018-05-03] MEDS: inSUlin Protamine/ASPart 70/30 1 UNIT/0.01 ML DOSE SC SCH ×2 (13:56→16:27)
[2018-05-03] MEDS: DIGOXIN 0.125 MG (LANOXIN) TAB PO SCH (13:56)
[2018-05-03] MEDS: CATHETER FLUSH 10 ML SYR IV SCH ×2 (14:18→20:17)
[2018-05-03] MEDS: RT-ALBUTEROL/IPRATROPIUM 3 ML (DUONEB) VIAL INH SCH ×3 (15:58→22:41)
[2018-05-03] MEDS: DOXYCYCLINE 100 MG (VIBRAMYCIN) TABLET PO SCH (16:27)
[2018-05-03] MEDS: POLYETHYLENE GLYCOL 17 GM (MIRALAX) PACK PO SCH (20:16)
[2018-05-03] MEDS ORDERED: inSUlin Protamine/ASPart 70/30 1 UNIT/0.01 ML DOSE SC SCH (21:00)
[2018-05-04 00:45] VITALS: BP 164/76
[2018-05-04] MEDS: RT-ALBUTEROL/IPRATROPIUM 3 ML (DUONEB) VIAL INH SCH ×6 (02:34→22:40)
[2018-05-04 03:43] VITALS: BP 148/67
[2018-05-04] MEDS ORDERED: MAGNESIUM 1 GM/100 ML IVPB 100 ML IV SCH (06:00)
[2018-05-04] MEDS ORDERED: KCL 20 MEQ TAB (K-DUR) PO SCH ×2 (06:00→07:00)
[2018-05-04] MEDS ORDERED: POTASSIUM CL 10MEQ/50ML IVPB 50 ML IV SCH (06:00)
[2018-05-04] MEDS: inSUlin ASPART (NovoLOG) 1 UNIT/0.01 ML (CHARGE PER UNIT) SC SCH ×4 (06:20→20:51)
[2018-05-04] MEDS: DOXYCYCLINE 100 MG (VIBRAMYCIN) TABLET PO SCH ×2 (06:20→16:27)
[2018-05-04] MEDS: CATHETER FLUSH 10 ML SYR IV SCH ×3 (06:33→22:03)
[2018-05-04 06:43] LABS: BASOPHILS % (AUTO) 0 % (0-10); EOSINOPHILS # (AUTO) 0.1 10^3/uL (0.0-0.3); EOSINOPHILS % (AUTO) 1 % (0-10); HEMATOCRIT 27 % (40-54); HEMOGLOBIN 9.1 G/DL (13.3-17.7); LYMPHOCYTES # (AUTO) 1.2 X 10^3 (1.0-4.0); LYMPHOCYTES % (AUTO) 12 % (12-44); MEAN CORPUSCULAR HEMOGLOBIN 30 PG (25-34); MEAN CORPUSCULAR HGB CONC 34 G/DL (32-36); MEAN CORPUSCULAR VOLUME 89 FL (80-99); MEAN PLATELET VOLUME 10.3 FL (7.4-10.4); MONOCYTES # (AUTO) 1.1 X 10^3 (0.0-1.0); MONOCYTES % (AUTO) 11 % (0-12); NEUTROPHILS # (AUTO) 7.5 X 10^3 (1.8-7.8); NEUTROPHILS % (AUTO) 76 % (42-75); PLATELET COUNT 169 10^3/uL (130-400); RED BLOOD COUNT 3.02 10^6/uL (4.35-5.85); RED CELL DISTRIBUTION WIDTH 15.4 % (10.0-14.5); WHITE BLOOD COUNT 9.9 10^3/uL (4.3-11.0)
[2018-05-04 07:04] LABS: ALBUMIN 2.5 GM/DL (3.2-4.5); BILIRUBIN,TOTAL 1.1 MG/DL (0.1-1.0); CALCIUM 8.7 MG/DL (8.5-10.1); CREATININE SERUM 1.22 MG/DL (0.60-1.30); POTASSIUM 3.5 MMOL/L (3.6-5.0); TOTAL PROTEIN 5.5 GM/DL (6.4-8.2)
--- NOTE | 2018-05-04 08:18 | Progress Note (SOAP) ---
Subjective Subjective Date Seen by Provider: May 04, 2018 Time Seen by Provider: 08:00 No overnight events Pt was unhappy this AM because he wanted his blood sugar rechecked and it took 15 minutes for someone to return with a glucometer. He is calmed down now and apologized for getting mad. He reports he feels better, does not remember much from the last couple days. He thinks he is doing better at [facility] than he was at [facility]. Review of Systems General: No Chills, No Night Sweats HEENT: No Head Aches Pulmonary: Dyspnea, Cough Cardiovascular: No: Chest Pain, Palpitations Gastrointestinal: No: Nausea, Vomiting, Abdominal Pain Genitourinary: No Dysuria Neurological: Weakness Objective Exam Vital Signs Vital Signs Date Time Temp Pulse Resp B/P (MAP) Pulse Ox O2 Delivery O2 Flow Rate FiO2 05/04/18 08:09 86 32 97 35.00 05/04/18 07:17 89 32 94 35.00 05/04/18 07:03 91 Nasal Cannula 4.00 05/04/18 04:48 24 40.00 05/04/18 03:43 98.7 83 20 148/67 (94) 95 Nasal Cannula 4.00 05/04/18 02:30 27 40.00 05/04/18 00:45 98.0 63 22 164/76 (105) 98 Nasal Cannula 4.00 05/04/18 00:45 74 24 95 40.00 05/03/18 22:42 94 Nasal Cannula 4.00 05/03/18 21:00 Nasal Cannula 4.00 05/03/18 20:25 90 Nasal Cannula 4.00 05/03/18 20:00 98.3 76 20 191/85 (120) 93 Nasal Cannula 4.00 05/03/18 18:27 91 Nasal Cannula 4.00 05/03/18 18:00 71 22 167/82 (110) 94 Nasal Cannula 4.00 05/03/18 17:00 78 23 142/75 (97) 92 Nasal Cannula 4.00 05/03/18 16:27 Nasal Cannula 4.00 05/03/18 16:00 70 22 166/87 (113) 100 Nasal Cannula 4.00 05/03/18 15:58 98 Nasal Cannula 4.00 05/03/18 15:00 78 22 152/72 (98) 98 Nasal Cannula 4.00 05/03/18 14:00 82 25 158/90 (112) 98 Nasal Cannula 4.00 05/03/18 13:01 75 05/03/18 13:00 67 21 166/92 (116) 99 NIV Bilevel 35.00 05/03/18 12:18 100 NIV Bilevel 35.00 05/03/18 12:00 97.0 83 23 165/86 (112) 100 NIV Bilevel 35.00 05/03/18 11:15 67 20 164/67 (99) 100 NIV Bilevel 40.00 05/03/18 11:02 64 20 100 40.00 05/03/18 11:00 71 16 154/75 (101) 99 NIV Bilevel 40.00 05/03/18 10:59 99 95 40 05/03/18 10:45 74 19 135/77 (96) 98 NIV Bilevel 40.00 05/03/18 10:30 69 22 136/73 (94) 99 NIV Bilevel 40.00 05/03/18 10:13 67 05/03/18 10:09 96.5 75 19 150/74 (99) 98 NIV Bilevel 40.00 05/03/18 10:05 100 NIV Bilevel 40.00 05/03/18 09:55 99 18 137/83 95 NIV Bilevel 05/03/18 09:24 73 18 144/91 (108) 94 NIV Bilevel 05/03/18 08:25 80 18 134/69 (90) 96 NIV Bilevel I & O 05/04/18 07:00 Intake Total 1775 ml Output Total 201 ml Balance 1574 ml General Appearance: No Apparent Distress, Chronically ill Eyes: Bilateral Eye Normal Inspection, Bilateral Eye PERRL, Bilateral Eye EOMI Neck: Full Range of Motion, Normal Inspection, Non Tender, Supple Respiratory: Chest Non Tender, Decreased Breath Sounds (bases), Rhonci (mild), Other Cardiovascular: No Gallop, No JVD, Irregularly Irregular (normal rate) Gastrointestinal: Normal Bowel Sounds, No Pulsatile Mass, Non Tender, Soft Back: No CVA Tenderness, No Vertebral Tenderness Extremity: Non Tender, Pedal Edema (1+ pitting edema- venous insufficiency) Neurologic/Psychiatric: Alert, Normal Mood/Affect (a little confused) Skin: Normal Color, Warm/Dry, Pallor Results Lab Laboratory Tests 05/03/18 13:13: Glucometer 110 05/03/18 16:25: Glucometer 110 05/03/18 20:11: Glucometer 141H 05/04/18 04:49: Glucometer 102 05/04/18 06:32: White Blood Count 9.9, Red Blood Count 3.02L, Hemoglobin 9.1L, Hematocrit 27L, Mean Corpuscular Volume 89, Mean Corpuscular Hemoglobin 30, Mean Corpuscular Hemoglobin Concent 34, Red Cell Distribution Width 15.4H, Platelet Count 169, Mean Platelet Volume 10.3, Neutrophils (%) (Auto) 76H, Lymphocytes (%) (Auto) 12 , Monocytes (%) (Auto) 11, Eosinophils (%) (Auto) 1, Basophils (%) (Auto) 0, Neutrophils # (Auto) 7.5, Lymphocytes # (Auto) 1.2, Monocytes # (Auto) 1.1H, Eosinophils # (Auto) 0.1, Basophils # (Auto) 0.0, Sodium Level 133L, Potassium Level 3.5L, Chloride Level 105, Carbon Dioxide Level 27, Anion Gap 1L, Blood Urea Nitrogen 20H, Creatinine 1.22, Estimat Glomerular Filtration Rate 57, BUN/ Creatinine Ratio 16, Glucose Level 97, Calcium Level 8.7, Total Bilirubin 1.1H, Aspartate Amino Transf (AST/SGOT) 11, Alanine Aminotransferase (ALT/SGPT) 8, Alkaline Phosphatase 66, Total Protein 5.5L, Albumin 2.5L 05/04/18 07:50: Glucometer 115H Assessment/Plan Assessment/Plan Assessment and Plan -continue doxycycline for cellulitis- also will cover for pneumonia Dispo: improving plan to discharge back to [facility] when ready. -suspect his exacerbation of COPD in part by being off his oxygen -also mild acute on chronic systolic heart failure- will go ahead and diurese a little with 20mg lasix IV Problems: (1) COPD exacerbation (2) IDDM (insulin dependent diabetes mellitus) Assessment & Plan: changed his insulin regimen to nph/reg 5units AM, 10 units PM as he is usually low due to poor po intake while inpatient. (3) Chronic renal insufficiency Qualifiers: Qualified Codes: N18.3 - Chronic kidney disease, stage 3 (moderate) (4) Chronic atrial fibrillation (5) HTN (hypertension) Qualifiers: Qualified Codes: I10 - Essential (primary) hypertension (6) Acute on chronic respiratory failure Qualifiers: Qualified Codes: J96.21 - Acute and chronic respiratory failure with hypoxia Assessment & Plan: RT dexamethasone 10mg po a couple days. (7) Hypokalemia (8) Supratherapeutic INR Assessment & Plan: resume warfarin when INR <3 Clinical Quality Measures DVT/VTE Risk/Contraindication: Risk Factor Score Per Nursin RFS Level Per Nursing on Admit: 4+=Very High RUBEN SANCHEZ MD May 04, 2018 08:18
[2018-05-04 08:33] LABS: INR 3.7 (0.8-1.4)
[2018-05-04 08:43] VITALS: BP 162/89
[2018-05-04] MEDS ORDERED: AZITHROMYCIN 250 MG/NS 250 ML IVPB IV SCH ×2 (09:00)
[2018-05-04] MEDS ORDERED: CEFEPIME 2 GM/NS 50 ML IVPB IV SCH ×2 (09:00)
[2018-05-04] MEDS: FAMOTIDINE 20 MG (PEPCID) TABLET PO SCH ×2 (09:03→20:38)
[2018-05-04] MEDS: CARVEDILOL 12.5 MG (COREG) TABLET PO SCH ×2 (09:03→20:38)
[2018-05-04] MEDS: DOCUSATE SODIUM 100 MG (COLACE) CAP PO SCH ×2 (09:03→20:38)
[2018-05-04] MEDS: DIGOXIN 0.125 MG (LANOXIN) TAB PO SCH (09:03)
[2018-05-04] MEDS: LOSARTAN 100 MG (COZAAR) TABLET PO SCH (09:03)
[2018-05-04] MEDS ORDERED: GLUC1KIT IM (09:46)
[2018-05-04] MEDS ORDERED: FURO20TA4 PO (09:46)
[2018-05-04] MEDS ORDERED: IPRA3AMP31 IH (09:46)
[2018-05-04] MEDS ORDERED: MAGN400T39 PO (09:46)
[2018-05-04] MEDS ORDERED: DEXT31GE5 PO (09:46)
[2018-05-04 12:57] VITALS: BP 173/79
[2018-05-04 16:05] VITALS: BP 174/72
[2018-05-04] MEDS: FUROSEMIDE 40 MG/4 ML INJ (LASIX) IVP SCH (16:23)
[2018-05-04] MEDS: KCL 20 MEQ TAB (K-DUR) PO SCH (16:27)
[2018-05-04 20:20] VITALS: BP 156/62
[2018-05-04] MEDS: POLYETHYLENE GLYCOL 17 GM (MIRALAX) PACK PO SCH (20:44)
[2018-05-04] MEDS: inSUlin Protamine/ASPart 70/30 1 UNIT/0.01 ML DOSE SC SCH (20:50)
[2018-05-05] VITALS: BP 180/78
[2018-05-05 04:23] VITALS: BP 183/83
[2018-05-05] MEDS: CATHETER FLUSH 10 ML SYR IV SCH ×3 (06:04→20:42)
[2018-05-05] MEDS: DOXYCYCLINE 100 MG (VIBRAMYCIN) TABLET PO SCH ×2 (06:04→17:42)
[2018-05-05] MEDS: inSUlin ASPART (NovoLOG) 1 UNIT/0.01 ML (CHARGE PER UNIT) SC SCH ×4 (06:04→19:29)
[2018-05-05] MEDS: KCL 20 MEQ TAB (K-DUR) PO SCH ×2 (06:04→17:42)
[2018-05-05 06:30] LABS: BASOPHILS % (AUTO) 0 % (0-10); EOSINOPHILS # (AUTO) 0.1 10^3/uL (0.0-0.3); EOSINOPHILS % (AUTO) 1 % (0-10); HEMATOCRIT 28 % (40-54); HEMOGLOBIN 9.4 G/DL (13.3-17.7); LYMPHOCYTES # (AUTO) 1.2 X 10^3 (1.0-4.0); LYMPHOCYTES % (AUTO) 14 % (12-44); MEAN CORPUSCULAR HEMOGLOBIN 30 PG (25-34); MEAN CORPUSCULAR HGB CONC 34 G/DL (32-36); MEAN CORPUSCULAR VOLUME 89 FL (80-99); MEAN PLATELET VOLUME 10.3 FL (7.4-10.4); MONOCYTES # (AUTO) 1.2 X 10^3 (0.0-1.0); MONOCYTES % (AUTO) 13 % (0-12); NEUTROPHILS # (AUTO) 6.1 X 10^3 (1.8-7.8); NEUTROPHILS % (AUTO) 71 % (42-75); PLATELET COUNT 161 10^3/uL (130-400); RED BLOOD COUNT 3.15 10^6/uL (4.35-5.85); RED CELL DISTRIBUTION WIDTH 15.4 % (10.0-14.5); WHITE BLOOD COUNT 8.6 10^3/uL (4.3-11.0)
[2018-05-05 06:56] LABS: CALCIUM 8.4 MG/DL (8.5-10.1); CREATININE SERUM 1.23 MG/DL (0.60-1.30); MAGNESIUM 1.8 MG/DL (1.8-2.4); POTASSIUM 3.5 MMOL/L (3.6-5.0)
[2018-05-05] MEDS: RT-ALBUTEROL/IPRATROPIUM 3 ML (DUONEB) VIAL INH SCH ×5 (07:09→22:34)
[2018-05-05 07:42] LABS: INR 2.6 (0.8-1.4); PROTHROMBIN TIME PATIENT 27.6 SEC (12.2-14.7)
--- NOTE | 2018-05-05 08:24 | Progress Note (SOAP) ---
Subjective Subjective Date Seen by Provider: May 05, 2018 Time Seen by Provider: 08:00 No overnight events Pt reports he feels a little confused today. He also reports nursing staff is doing a good job. He is unsure last time he has seen his Debby- To my knowledge she has not been to visit yesterday or today. Pt was getting ready to eat breakfast this AM. He thinks he is nearing the time to go back to [facility] for SNU. Review of Systems General: No Chills, No Night Sweats HEENT: No Head Aches Pulmonary: Dyspnea, Cough Cardiovascular: No: Chest Pain, Palpitations Gastrointestinal: No: Nausea, Vomiting, Abdominal Pain Genitourinary: No Dysuria Neurological: Weakness Objective Exam Vital Signs Vital Signs Date Time Temp Pulse Resp B/P (MAP) Pulse Ox O2 Delivery O2 Flow Rate FiO2 05/05/18 07:09 97 Nasal Cannula 5.00 05/05/18 04:23 97.4 73 24 183/83 (116) 96 NIV CPAP 5.00 05/05/18 00:20 87 17 92 35.00 05/05/18 00:00 97.5 66 24 180/78 (112) 100 NIV CPAP 5.00 05/04/18 22:40 90 26 92 35.00 05/04/18 21:00 Nasal Cannula 4.00 05/04/18 20:20 98.3 81 18 156/62 (93) 94 Nasal Cannula 5.00 05/04/18 19:44 92 Nasal Cannula 4.00 05/04/18 16:05 98.0 75 18 174/72 (106) 93 Nasal Cannula 5.00 05/04/18 14:06 92 Nasal Cannula 5.00 05/04/18 12:57 97.2 75 20 173/79 (110) 94 Nasal Cannula 5.00 05/04/18 10:27 93 Nasal Cannula 4.00 05/04/18 09:00 97 NIV Bilevel 35.00 05/04/18 08:43 97.6 77 22 162/89 (113) 97 NIV Bilevel I & O 05/05/18 07:00 Intake Total 1790 ml Output Total 1825 ml Balance -35 ml General Appearance: No Apparent Distress, Chronically ill Eyes: Bilateral Eye Normal Inspection, Bilateral Eye PERRL, Bilateral Eye EOMI Neck: Full Range of Motion, Normal Inspection, Non Tender, Supple Respiratory: Chest Non Tender, Decreased Breath Sounds (bases), Rhonci (mild), Other Cardiovascular: No Gallop, No JVD, Irregularly Irregular (normal rate) Gastrointestinal: Normal Bowel Sounds, No Pulsatile Mass, Non Tender, Soft Back: No CVA Tenderness, No Vertebral Tenderness Extremity: Non Tender, Pedal Edema (1+ pitting edema- venous insufficiency) Neurologic/Psychiatric: Alert, Normal Mood/Affect (a little confused) Skin: Normal Color, Warm/Dry, Pallor Results Lab Laboratory Tests 05/04/18 11:01: Glucometer 263H 05/04/18 15:43: Glucometer 169H 05/04/18 20:22: Glucometer 200H 05/05/18 05:06: Glucometer 108 05/05/18 05:29: White Blood Count 8.6, Red Blood Count 3.15L, Hemoglobin 9.4L, Hematocrit 28L, Mean Corpuscular Volume 89, Mean Corpuscular Hemoglobin 30, Mean Corpuscular Hemoglobin Concent 34, Red Cell Distribution Width 15.4H, Platelet Count 161, Mean Platelet Volume 10.3, Neutrophils (%) (Auto) 71, Lymphocytes (%) (Auto) 14 , Monocytes (%) (Auto) 13H, Eosinophils (%) (Auto) 1, Basophils (%) (Auto) 0, Neutrophils # (Auto) 6.1, Lymphocytes # (Auto) 1.2, Monocytes # (Auto) 1.2H, Eosinophils # (Auto) 0.1, Basophils # (Auto) 0.0, Prothrombin Time 27.6H, INR Comment 2.6H, Sodium Level 138, Potassium Level 3.5L, Chloride Level 104, Carbon Dioxide Level 28, Anion Gap 6, Blood Urea Nitrogen 23H, Creatinine 1.23, Estimat Glomerular Filtration Rate 56, BUN/Creatinine Ratio 19, Glucose Level 100, Calcium Level 8.4L, Magnesium Level 1.8 Microbiology 05/03/18 Blood Culture - Preliminary, Resulted No growth Assessment/Plan Assessment/Plan Assessment and Plan -continue doxycycline Dispo: improving plan to discharge back to [facility] when ready. -continue diuresing- as 1 dose of iv lasix has improved his respiratory status - back to 4L oxygen -will discharge out on po lasix daily. -Cr at baseline - will monitor CKDIII -PT ordered to help with his weakness -resuming warfarin will need to monitor INR while on doxycycline for 3 more days. Problems: (1) Acute on chronic respiratory failure Qualifiers: Qualified Codes: J96.21 - Acute and chronic respiratory failure with hypoxia Assessment & Plan: RT dexamethasone 10mg po a couple days. (2) Acute on chronic diastolic (congestive) heart failure Assessment & Plan: diuresing with lasix (3) Hypokalemia Assessment & Plan: replacing (4) COPD exacerbation Assessment & Plan: improved (5) IDDM (insulin dependent diabetes mellitus) Assessment & Plan: changed his insulin regimen to nph/reg 5units AM, 10 units PM as he is usually low due to poor po intake while inpatient. (6) Chronic renal insufficiency Qualifiers: Qualified Codes: N18.3 - Chronic kidney disease, stage 3 (moderate) (7) Chronic atrial fibrillation (8) HTN (hypertension) Qualifiers: Qualified Codes: I10 - Essential (primary) hypertension (9) Supratherapeutic INR Assessment & Plan: resume warfarin when INR <3 Clinical Quality Measures DVT/VTE Risk/Contraindication: Risk Factor Score Per Nursin RFS Level Per Nursing on Admit: 4+=Very High RUBEN SANCHEZ MD May 05, 2018 08:24
[2018-05-05 08:30] VITALS: BP 165/80
[2018-05-05] MEDS: LOSARTAN 100 MG (COZAAR) TABLET PO SCH (09:15)
[2018-05-05] MEDS: DOCUSATE SODIUM 100 MG (COLACE) CAP PO SCH ×2 (09:15→20:41)
[2018-05-05] MEDS: DIGOXIN 0.125 MG (LANOXIN) TAB PO SCH (09:15)
[2018-05-05] MEDS: FAMOTIDINE 20 MG (PEPCID) TABLET PO SCH ×2 (09:16→20:41)
[2018-05-05] MEDS: DEXAMETHASONE 4 MG TAB (DECADRON) PO SCH (09:16)
[2018-05-05] MEDS: FUROSEMIDE 40 MG/4 ML INJ (LASIX) IVP SCH (09:16)
[2018-05-05] MEDS: CARVEDILOL 12.5 MG (COREG) TABLET PO SCH ×2 (09:16→20:42)
[2018-05-05] MEDS: inSUlin Protamine/ASPart 70/30 1 UNIT/0.01 ML DOSE SC SCH ×2 (09:17→20:42)
--- NOTE | 2018-05-05 11:31 | Physical Therapy Evaluation ---
PT Evaluation-General Medical Diagnosis Admission Date May 03, 2018 at 08:30 Medical Diagnosis: actue respiratory distress/hypoxia Onset Date: May 03, 2018 Therapy Diagnosis Therapy Diagnosis: weakness/debility Height/Weight Height (Feet): 5 Height (Inches): 11.00 Weight (Pounds): 238 Weight (Ounces): 6.0 Precautions Precautions/Isolations: Contact Isolation, Fall Prevention Weight Bear Status Right Lower Extremity: Right Weight Bearing/Tolerated Left Lower Extremity: Left Weight Bearing/Tolerated Referral Physician: Hugo Alexander Reason for Referral: Evaluation/Treatment Medical History Pertinent Medical History: Atrial Fib, COPD, DM, Dementia, GERD, HTN, Macular Degenertion, Neuropathy, PVD, Renal Insufficiency, Smoking Current History EMS to [place] secondary to hypoxia with SAO2 in the 60's Reviewed History: Yes Social History Home: Snf Prior/[facility] Prior Level of Function Functional [place] Measure 0=Not Assessed/NA 4=Minimal Assistance 1=Total Assistance 5=Supervision or Setup 2=Maximal Assistance 6=Modified [place] 3=Moderate Assistance 7=Complete [place] Bed Mobility: 5 Transfers (B,C,W/C) (FIM): 5 Gait: 2 PT Evaluation-Current Subjective Patient agrees to PT. Pain Numeric Pain Scale: 0-No Pain Location: No Pain Reported Objective Patient Orientation: Confused Problem Solving: Fair ROM/Strength ROM Lower Extremities bilateral LE WNL Strength Lower Extremities 3+/5 grossly bilateral LE Integumentary/Posture Integumentary refer to nursing notes Bowel Incontinence: No Bladder Incontinence: Yes Posture WFL Neuromuscular (Tone, Coordination, Reflexes) slightly diminished coordination due to inactivity Sensory Vision: Blind Legally Hearing: Impaired Sensation Right Lower Extremit: Impaired Sensation Left Lower Extremity: Impaired Transfers Functional [place] Measure 0=Not Assessed/NA 4=Minimal Assistance 1=Total Assistance 5=Supervision or Setup 2=Maximal Assistance 6=Modified [place] 3=Moderate Assistance 7=Complete [place] Transfers (B, C, W/C) (FIM): 5 Scootin Rollin Supine to/from Sit: 5 Sit to/from Stand: 5 Gait Mode of Locomotion: Walk Anticipated Mode of Locomotion: Walk Gait (FIM): 2 Distance (FIM): 0=282-32 ft Distance: 90' Gait Level of Assist: 5 Gait Persons Needed: 1 Gait Assistive Device: FWW Comments/Gait Description patient fatigues with minimal activity/functional gait sequence Balance Sitting Static: Normal Sitting Dynamic: Normal Standing Static: Normal Standing Dynamic: Normal Assessment/Needs 82 y.o. male, will benefit from skilled PT to address functional strength and mobility to improve current LOF. Patient is currently a skilled nursing resident and will return upon dismissal from hospital. Rehab Potential: Fair PT Short Term Goals Short Term Goals Time Frame: May 09, 2018 Transfers (B,C,W/C) (FIM): 5 Gait (FIM): 1 Distance (FIM): 7=756-59 ft Gait Distance Comment: 125' Gait Level of Assist: 5 PT Plan Problem List Problem List: Activity Tolerance, Safety, Balance, Gait, Transfer, Bed Mobility Treatment/Plan Treatment Plan: Continue Plan of Care Treatment Plan: Bed Mobility, Education, Functional Activity Amanda, Functional Strength, Gait, Safety, Therapeutic Exercise, Transfers Treatment Duration: May 09, 2018 Frequency: 5 times per week Estimated Hrs Per Day: .25 hour per day Patient and/or Family Agrees t: Yes Discharge Recommendations Therapy D/C Recommendations: Snf Placement, Halfway (TCU/NH) Time/GCodes Time In: 1010 Time Out: 1026 Total Billed Treatment Time: 16 Total Billed Treatment 1 visit EVModC 16 min G Codes Necessary: No NIKHIL LEBLANC PT May 05, 2018 11:30
[2018-05-05 12:30] VITALS: BP 179/90
[2018-05-05 15:30] VITALS: BP 181/82
[2018-05-05] MEDS: MAGNESIUM OXIDE (MAG-OX)400 MG TAB PO SCH (17:42)
[2018-05-05] MEDS ORDERED: warFARin 5 MG (COUMADIN) TAB PO SCH (18:00)
[2018-05-05 19:50] VITALS: BP 185/86
[2018-05-05] MEDS: POLYETHYLENE GLYCOL 17 GM (MIRALAX) PACK PO SCH (20:41)
[2018-05-06] VITALS: BP 195/85
[2018-05-06] MEDS: RT-ALBUTEROL/IPRATROPIUM 3 ML (DUONEB) VIAL INH SCH ×3 (02:28→10:35)
[2018-05-06 04:33] VITALS: BP 181/84
[2018-05-06] MEDS: DEXAMETHASONE 4 MG TAB (DECADRON) PO SCH (05:59)
[2018-05-06] MEDS: KCL 20 MEQ TAB (K-DUR) PO SCH (05:59)
[2018-05-06] MEDS: DOXYCYCLINE 100 MG (VIBRAMYCIN) TABLET PO SCH (05:59)
[2018-05-06] MEDS: CATHETER FLUSH 10 ML SYR IV SCH ×2 (06:00→14:13)
[2018-05-06] MEDS: inSUlin ASPART (NovoLOG) 1 UNIT/0.01 ML (CHARGE PER UNIT) SC SCH ×2 (06:00→12:56)
[2018-05-06 07:41] LABS: CALCIUM 8.9 MG/DL (8.5-10.1); CREATININE SERUM 1.25 MG/DL (0.60-1.30); POTASSIUM 3.7 MMOL/L (3.6-5.0)
[2018-05-06 08:03] VITALS: BP 172/76
[2018-05-06] MEDS ORDERED: AZITHROMYCIN 250 MG TAB (ZITHROMAX) PO SCH (09:00)
[2018-05-06] MEDS: FUROSEMIDE 40 MG/4 ML INJ (LASIX) IVP SCH (10:41)
[2018-05-06] MEDS: FAMOTIDINE 20 MG (PEPCID) TABLET PO SCH (10:41)
[2018-05-06] MEDS: inSUlin Protamine/ASPart 70/30 1 UNIT/0.01 ML DOSE SC SCH (10:42)
[2018-05-06] MEDS: LOSARTAN 100 MG (COZAAR) TABLET PO SCH (10:42)
[2018-05-06] MEDS: DIGOXIN 0.125 MG (LANOXIN) TAB PO SCH (10:42)
[2018-05-06] MEDS: DOCUSATE SODIUM 100 MG (COLACE) CAP PO SCH (10:42)
[2018-05-06] MEDS: MAGNESIUM OXIDE (MAG-OX)400 MG TAB PO SCH (10:42)
[2018-05-06] MEDS: CARVEDILOL 12.5 MG (COREG) TABLET PO SCH (10:42)
--- NOTE | 2018-05-06 11:48 | Physical Therapy Daily Note ---
PT Daily Note-Current Subjective Pt sitting in recliner upon arrival. Pt agrees to walk for PT. Pt appears more confused than when visited this morning. DIRECTOR OF BUSINESS OPERATIONS noticed this as well. Pain Location: No Pain Reported Mental Status Patient Orientation: Person, Confused Attachments: Oxygen Transfers Functional [place] Measure 0=Not Assessed/NA 4=Minimal Assistance 1=Total Assistance 5=Supervision or Setup 2=Maximal Assistance 6=Modified [place] 3=Moderate Assistance 7=Complete IndependenceIRFPAI Quality Coding Scale 6 Independent with activity with or without an assistive device 5 Patient requires set up or clean up by helper. Patient completes activity by themselves 4 Supervision or touching assist (CGA). [place] provide cues , steadying assist 3 The helper provides less than half the effort to complete the activity 2 The helper provides more than half the effort to complete the activity 1 Dependent. The helper does all the effort to complete an activity 7 Patient refused to complete or attempt activity 9 The patient did not perform the activity before the current illness or injury 88 Not attempted due to Medical conditions or safety concerns Scootin Sit to/from Stand: 5 Weight Bearing Right Lower Extremity: Right Weight Bearing/Tolerated Left Lower Extremity: Left Weight Bearing/Tolerated Gait Training Distance (FIM): 5=353-79 ft Distance: 60' Gait Level of Assist: 5 Gait Persons Needed: 1 Gait Assistive Device: FWW Pt walks with slow xochitl & slight kyphotic posture. Treatments Pt is confused and needs reminders of what pt needs to complete. Pt transfers from recliner to standing using FWW at close SBA. Pt feels more unsteady today and returns to recliner after only 60' w/in room. Pt resting in recliner at end of tx with all needs met, including call light next to pt. Assessment Current Status: Fair Progress Pt reports SOA quicker than normal as well as more confused. PT Short Term Goals Short Term Goals Time Frame: May 09, 2018 Transfers (B,C,W/C) (FIM): 5 Gait (FIM): 1 Distance (FIM): 5=006-97 ft Gait Distance Comment: 125' Gait Level of Assist: 5 PT Plan Problem List Problem List: Activity Tolerance, Functional Strength, Safety, Gait Treatment/Plan Treatment Plan: Continue Plan of Care Treatment Plan: Bed Mobility, Education, Functional Activity Amanda, Functional Strength, Gait, Safety, Therapeutic Exercise, Transfers Treatment Duration: May 09, 2018 Frequency: 5 times per week Estimated Hrs Per Day: .25 hour per day Patient and/or Family Agrees t: Yes Safety Risks/Education Patient Education: Gait Training, Transfer Techniques, Correct Positioning, Safety Issues Teaching Recipient: Patient Teaching Methods: Discussion Response to Teaching: Verbalize Understanding Time/GCodes Time In: 1112 Time Out: 1127 Total Billed Treatment Time: 15 Total Billed Treatment 1, GT (15m) G Codes Necessary: TYRONE Wagner PTA May 06, 2018 11:48
[2018-05-06 12:00] VITALS: BP 158/78
--- NOTE | 2018-05-06 12:12 | Discharge Inst-Skilled Nursing ---
Discharge Inst-Skilled NF Chief Complaint Patient presents to ER by EMS with chief complaint of shortness of breath. Patient Instructions Patient Problems: acute on chronic diastolic heart failure COPD exacerbation Consult/Follow Up/Orders Follow Up Appt.: follow up in 1-2 weeks at [facility] Skilled NF Admit to: [facility] Certification (SNF) I certify that SNF services are required to be given on an inpatient basis because of the above named patient's need for nursing home care on a continuing basis for the conditions(s) for which he/she was receiving inpatient hospital services prior to his/her transfer to the SNF. Long-Term Facility Order: Nursing Services, Civil Geotechnical Engineer-Evaluate & Treat, Physical Therapy-Evaluate & Treat Discharge Diet: Eat Small Frequent Meals New & Resume Previous Orders New & Resume Previous Orders resume previous orders resume previous orders --transfer back to [facility] --PT/OT evaluate and treat- same goal to discharge to home --Nursing staff to check vitals daily hold blood pressure medications (losartan, carvedilol) for systolic <100, diastolic <50. ---Do not hold digoxin. --Check INR on 05/07/18, then check INR weekly --check blood sugar qAM, qHS --O2 via NC at 4Liters to maintain spO2 >90% may titrate down --breathing treatment per med rec. --see medication rec for medications. Urinanalysis with culture is pending at [facility]- if + ESBL UTI will treat with 3gram packet of fosfomycin powder by mouth x1 Hugo Sanchez May 06, 2018 12:02 HUGO SANCHEZ MD May 06, 2018 12:12
--- NOTE | 2018-05-06 12:54 | Discharge Summary ---
Diagnosis/Chief Complaint Date of Admission May 03, 2018 at 08:30 Date of Discharge May 06 2018 Admission Diagnosis Admission Diagnosis 1. Acute COPD exacerbation with secondary hypoxia 2. Acute on chronic diastolic heart failure secondary to hypoxia with mild pulmonary edema. 3. Chronic atrial fibrillation 4. Over anticoagulation/thrombophilia 5. Peripheral vascular disease Discharge Diagnosis (1) Acute on chronic respiratory failure (2) Acute on chronic diastolic (congestive) heart failure (3) Hypokalemia (4) COPD exacerbation (5) IDDM (insulin dependent diabetes mellitus) (6) Chronic renal insufficiency (7) Chronic atrial fibrillation (8) HTN (hypertension) (9) Supratherapeutic INR Reason Hospital Visit Patient presents to ER by EMS with chief complaint of shortness of breath. EMS reports patient has a history of dementia and was found this morning rounds to be short of breath with sats in the upper 60s. Currently they are out of oxygen bottles at the half-way so he was using borrowed oxygen concentrator at 4 L and satting 95% when they were arrived. They heard wheezes bilaterally and he has a history of COPD so they gave him a DuoNeb breathing treatment. Patient is afebrile with a blood sugar 185. Patient does not give any meaningful history Upon my arrival the patient was on BiPAP was conversant. Reports that his cough is been pretty much at baseline a nonproductive and does not recall what happened this morning. His is present at the bedside and states that he has a concentrator but it may not of been working and they did switch him to somebody else's oxygen with a borrowed in the form of bottled oxygen on 4 L. Currently he is on BiPAP with saturations between 90 and 94 percent I believe 4 L supplemental oxygen currently flowing. He denies shortness of breath at rest and was sleeping upon my arrival. Vital signs are stable see below review of systems essentially negative Discharge Summary Hospital Course Hospital Course 82 yo M admitted for acute on chronic respiratory failure found to have acute on chronic diastolic heart failure- IVF were held and he was monitored for improvement with respiratory support. Diuresis was started on second day of admission due to need for symptoms. He returned to his baseline requirement of 4L oxygen. He was continued on doxycycline for his resolving cellulitis of his legs. INR was elevated in part by doxycycline- so warfarin was held until INR improved. Dexamethasone helped with his COPD exacerbation. He did have confusion on day of discharge that he was aware of- usually he is not aware of his confusion- UA was negative for infection. Discussed with patient and beyond the confusion there was not anything else medical at this time (compared to his baseline) to keep him inpatient so he was transferred back to [facility] --PT/OT evaluate and treat- same goal to discharge to home --Nursing staff to check vitals daily hold blood pressure medications (losartan, carvedilol) for systolic <100, diastolic <50. ---Do not hold digoxin. --Check INR on 05/07/18, then check INR weekly --check blood sugar qAM, qHS --O2 via NC at 4Liters to maintain spO2 >90% may titrate down --breathing treatment per med rec. --see medication rec for medications. Urinanalysis with culture is pending at [facility]- Labs Procedures None. Discharge Physical Examination Allergies: Coded Allergies: sulfamethoxazole (Verified Allergy, Mild, RASH, 11/13/17) trimethoprim (Verified Allergy, Mild, RASH, 11/13/17) Vitals & I&Os Vital Signs Date Time Temp Pulse Resp B/P (MAP) Pulse Ox O2 Delivery O2 Flow Rate FiO2 05/06/18 12:00 98.1 81 20 158/78 (104) 92 Nasal Cannula 4.00 General Appearance: Alert, Cooperative Respiratory: Clear to Auscultation Cardiovascular: Regular Rate (AFib) Abdominal: Normal Bowel Sounds, Soft Neuro: Normal Speech Psych/Mental Status: Mood NL Discharge Home Medications Reviewed and agree with Discharge Medication list on patient's Discharge Instruction sheet Condition at Discharge stable poor prognosis with co-morbidities Instructions to Patient/Family Please see electronic discharge instructions given to patient. Clinical Quality Measures DVT/VTE Risk/Contraindication: Risk Factor Score Per Nursin RFS Level Per Nursing on Admit: 4+=Very High RUBEN SANCHEZ MD May 06, 2018 12:54
[2018-05-06 13:03] LABS: BILIRUBIN,URINE NEGATIVE (NEGATIVE); CLARITY,URINE CLEAR; COLOR,URINE YELLOW; GLUCOSE, URINE (UA) 3+ (NEGATIVE); KETONES,URINE NEGATIVE (NEGATIVE); LEUKOCYTE ESTERASE ,URINE NEGATIVE (NEGATIVE); NITRITE,URINE NEGATIVE (NEGATIVE); PH,URINE 7 (5-9); PROTEIN,URINE 4+ (NEGATIVE); UROBILINOGEN,URINE NORMAL (NORMAL)
[2018-05-06 13:15] LABS: BACTERIA,URINE NEGATIVE /HPF; HYALINE CASTS, URINE RARE /LPF; SQUAMOUS EPITHELIAL CELL,UR 0-2 /HPF
== END 2018-05-06 14:57 | DRG 189 ==
LOC: EDUNIT# 06:46 → ER 06:47 → ICU 08:30 → 4TH 19:28
PROVIDERS: ADMIT Internal Medicine; ATTEND Internal Medicine
DX: J96.21 Acute and chronic respiratory failure with hypoxia (principal); J96.22 Acute and chronic respiratory failure with hypercapnia; J44.1 Chronic obstructive pulmonary disease with (acute) exacerbation; I13.0 Hypertensive heart and chronic kidney disease with heart failure and stage 1 through stage 4 chronic kidney disease, or unspecified chronic kidney disease; I50.33 Acute on chronic diastolic (congestive) heart failure; N18.3 Chronic kidney disease, stage 3 (moderate); D68.69 Other thrombophilia; E11.51 Type 2 diabetes mellitus with diabetic peripheral angiopathy without gangrene; E11.42 Type 2 diabetes mellitus with diabetic polyneuropathy; I87.2 Venous insufficiency (chronic) (peripheral); I48.2 Chronic atrial fibrillation; F03.90 Unspecified dementia, unspecified severity, without behavioral disturbance, psychotic disturbance, mood disturbance, and anxiety; E87.6 Hypokalemia; G47.30 Sleep apnea, unspecified; E78.00 Pure hypercholesterolemia, unspecified; K21.9 Gastro-esophageal reflux disease without esophagitis; H35.30 Unspecified macular degeneration; K59.09 Other constipation; R53.1 Weakness; R29.6 Repeated falls; H91.90 Unspecified hearing loss, unspecified ear; C44.91 Basal cell carcinoma of skin, unspecified; Z99.81 Dependence on supplemental oxygen; Z87.891 Personal history of nicotine dependence; Z79.4 Long term (current) use of insulin
CPT/HCPCS: 36415; 36600; 71045; 80048; 80053; 80162; 81000; 82805; 82962; 83605; 83735; 83880; 85007; 85025; 85027; 85610; 85730; 86141; 87040; 87081; 94640; 94660; 94760; 96361; 96365

== ENCOUNTER → 2018-07-27 | Outpatient (CLI) | payer MEDICARE, BC ==
[~2018-07-27] MED LIST changes: +ACET-2267 PO; +CHOL20002 PO; +DEXT31GE5 PO; +DOXY100T2 PO; +GLUC1KIT IM; -LOSA100T28 PO; +LOSA100T8 PO; -LOSA25TA21 PO; +LOSA25TA6 PO; -LOSA50TA36 PO; +LOSA50TA7 PO; +MAGN400T39 PO; +SILV20CR14 TP
== END ==
LOC: WOUNDCARE 09:09
PROVIDERS: ATTEND Surgery
DX: E11.621 Type 2 diabetes mellitus with foot ulcer (principal); I70.244 Atherosclerosis of native arteries of left leg with ulceration of heel and midfoot; L97.422 Non-pressure chronic ulcer of left heel and midfoot with fat layer exposed; E11.42 Type 2 diabetes mellitus with diabetic polyneuropathy
CPT/HCPCS: 11042

== ENCOUNTER 2018-07-29 06:47 | Day surgery (SDC) | payer MEDICARE, BC ==
[~2018-07-29] VITALS: Ht 170.2 cm; Wt 98.4 kg
[2018-07-29] VITALS (16 sets, daily range): BP systolic 115–195; BP diastolic 78–116
[~2018-07-29 06:47] MED LIST changes: -CHOL20002 PO
[2018-07-29] MEDS ORDERED: LIDOCAINE 1% INJ 20 ML 20 ML VIAL ONE (06:55)
[2018-07-29] MEDS ORDERED: HEParin (CATH LAB) 2,000 ML IV ONE (06:56)
[2018-07-29] MEDS ORDERED: NS IV 1000 ML 1,000 ML ONE (06:56)
--- OUTSIDE RECORDS SUMMARY | 2018-07-29 07:02 | XMS REPORT | Clinical Summary ---
Author Author [facility] Organization [facility] Address Unknown Phone Unavailable Care Team Providers Care Research Support Specialist Name Role Phone JasonCailin Unavailable Unavailable Ru Gomez MD PCP Ronen Agosto MD Unavailable Source Comments Some departments are not documenting in the electronic medical record. 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
[2018-07-29 07:32] LABS: HEMOGLOBIN 12.4 G/DL (13.3-17.7); MEAN PLATELET VOLUME 10.9 FL (7.4-10.4); RED BLOOD COUNT 4.15 10^6/uL (4.35-5.85); RED CELL DISTRIBUTION WIDTH 13.9 % (10.0-14.5); WHITE BLOOD COUNT 10.8 10^3/uL (4.3-11.0)
[2018-07-29 07:45] LABS: INR 1.5 (0.8-1.4); PROTHROMBIN TIME PATIENT 18.5 SEC (12.2-14.7)
[2018-07-29] MEDS ORDERED: NS IV 1000 ML 1,000 ML IV SCH (07:45)
[2018-07-29] MEDS ORDERED: TROS60CA4 PO (07:51)
[2018-07-29] MEDS ORDERED: KRIL500C PO (07:51)
[2018-07-29] MEDS ORDERED: CHOL20002 PO (07:51)
[2018-07-29 07:53] LABS: ALBUMIN 2.8 GM/DL (3.2-4.5); BILIRUBIN,TOTAL 0.8 MG/DL (0.1-1.0); CALCIUM 9.2 MG/DL (8.5-10.1); CREATININE SERUM 1.73 MG/DL (0.60-1.30); POTASSIUM 3.7 MMOL/L (3.6-5.0); TOTAL PROTEIN 6.4 GM/DL (6.4-8.2)
--- NOTE | 2018-07-29 08:02 | Diagnostic Imaging Report ---
INDICATION: Peripheral vascular disease Frontal chest obtained at 7:27 a.m. and compared to 05/03/18. Heart is borderline in size. There is improvement in bibasilar infiltrate compared to the prior study of 05/03/18. There is no pneumothorax or pleural fluid. There are old right-sided rib fractures. IMPRESSION: Improved bilateral basilar infiltrates compared with 05/03/2018. Borderline heart size. No new infiltrate or pneumothorax or pleural fluid. Multiple old right-sided rib fractures are noted. Dictated by: Dictated on workstation # [id number]
[2018-07-29] MEDS ORDERED: fentaNYL INJECTION 100 MCG/2 ML AMP ONE (08:50)
[2018-07-29] MEDS ORDERED: MIDAZOLAM 5 MG/5 ML (VERSED) VIAL ONE (08:50)
--- NOTE | 2018-07-29 08:52 | Cardiac Procedure Note-CS/ASA ---
Pre-Procedure Note Pre-Op Procedure Note H&P Reviewed The H&P was reviewed, patient examined and no changes noted. Date H&P Reviewed: Jul 29, 2018 Time H&P Reviewed: 08:52 Conscious Sedation Pre-Proced Time 08:52 ASA Score 3 For ASA 3 and 4: Consider anesthesia and medical clearance. Also, for patients with a history of failed moderate sedation consider anesthesia. Airway Lungs Heart ASA score ASA 1: a normal healthy patient ASA 2: a patient with a mild systemic disease (mid diabetes, controlled hypertension, obesity x ASA 3: a patient with a severe systemic disease that limits activity (angina , COPD, prior Myocardial infarction) ASA 4: a patient with an incapacitating disease that is a constant threat to life (CHF, renal failure) ASA 5: a moribund patient not expected to survive 24 hrs. (ruptured aneurysm) ASA 6: a declared brain patient whose organs are being harvested. For emergent operations, add the letter E after the classification Mallampati Classification Grade 3 Sedation Plan Analgesia, Amnesia, Plan communicated to team members, Discussed options with patient/fam, Discussed risks with patient/fam The patient is an appropriate candidate to undergo the planned procedure, sedation, and anesthesia. The patient immediately re-assessed prior to indication. KEELEY ROSSI MD Jul 29, 2018 08:52
[2018-07-29] MEDS ORDERED: HEParin 1000 UNIT/ML (10ML VIAL) FOR BOLUS ONE (09:30)
[2018-07-29] MEDS ORDERED: NITRO DRIP 25000 MCG/D5W 250 ML IV ONE (09:39)
[2018-07-29] MEDS ORDERED: meTOprolol 5 MG/5 ML (LOPRESSOR) VIAL ONE ×3 (10:01→10:40)
[2018-07-29] MEDS ORDERED: ENALAPRILAT 2.5 MG/2 ML (VASOTEC) VIAL IV ONE ×2 (10:40→10:49)
[2018-07-29] MEDS ORDERED: PATIENT MAY USE OWN MEDS, ALL PO SCH (10:45)
[2018-07-29] MEDS ORDERED: RT-ALBUTEROL/IPRATROPIUM 3 ML (DUONEB) VIAL IH PRN (10:45)
--- NOTE | 2018-07-29 11:00 | Peripheral Report ---
Peripheral Report Physician (s)/Deicer Repairer Pneumatic (s) Physician KEELEY ROSSI MD Pre-Procedure Diagnosis Pre-Procedure Diagnosis: peripheral arterial disease, nonhealing foot ulcer Post-Procedure Note Procedure Start Date: Jul 29, 2018 Name of Procedure: Bilateral lower extremity runoff Third order, additional imaging Balloon angioplasty to the left tibial peroneal trunk Drug coated balloon then stent to the left SFA Findings/Procedure Note PROCEDURE NOTE: After explaining the procedure to the patient, all pros and cons were explained , all questions were answered. The patient signed the consent and then he was placed on the cardiac catheterization laboratory. The patient was placed on the cardiac catheterization laboratory. Groin was prepped SL fashion local anesthesia was used. Sheath placed in the right femoral artery. UF catheter was used to crossover, straight catheter was advanced to the left SFA and runoff was done then patient was given 3000 units of heparin. The straight catheter was advanced to the popliteal artery then to the tibial peroneal trunk and angiogram with DCA was done, I gave additional 3000 units of heparin and then command wire was used and I proceeded with balloon angioplasty with [place] 3x80 balloon angioplasty was done to the tibial peroneal trunk and peroneal artery, angiogram showed excellent results. Then I exchanged the wire into a stork wire again and did balloon angioplasty with 5.0 balloon then proceeded with drug-coated balloon using Lutonix six-time 150, inflated in the mid and proximal SFA, angiogram showed improvement but recoiling in the proximal lesion. Did balloon angioplasty was 7.0 [place] balloon then proceeded with stent deployment using 2 overlapping Supera 6.0 x150 and 6.0 x 100 postdilated with 6.0 balloon with excellent results and no residual stenosis. Excellent brisk flow. Then I proceeded with advancement of the UF catheter to the abdominal aorta and angiogram with 5 mL of contrast was done showing location the abdominal aorta the catheter was removed and runoff to the right lower extremity was done through the sheath. At the end of the procedure sheath was removed, closure device deployed. FINDINGS: Left lower extremity: Severe stenosis at the proximal and mid SFA, balloon angioplasty then to stent deployment using overlapping Supera 6.0150 and 6.0 100 with excellent results. The tibial peroneal trunk has severe subtotal occlusion with successful balloon angioplasty using 30 time 80 mm balloon with excellent results. Still have diffuse disease in the anterior tibial artery, treated medically. Right lower extremity: Diffuse moderate atherosclerotic disease at the SFA down to the trifurcation, slow flow beyond the trifurcation CONCLUSIONS: 1. Deployment of 2 overlapping Supera stents in the left SFA 6.0150 and 6.0 100 with excellent results and reduction of severe stenosis into no residual stenosis. 2. Balloon angioplasty to the left tibial peroneal trunk that has severe stenosis/subtotal occlusion with excellent results and mild residual recoil 3. Diffuse atherosclerotic disease in the anterior tibial artery that is treated medically 4. Right lower extremity runoff showed moderate disease in the SFA and popliteal with very slow flow below the trifurcation DISCUSSION AND RECOMMENDATIONS: Continue to maximize medical therapy Anesthesia Type: Conscious Sedation Estimated blood loss (mL): 25 ml Contrast Amount: 48 ml Total Radiation Dose: 422 mGy Post-Procedure Diagnosis Post-operative diagnosis: Peripheral arterial disease Nonhealing foot ulcer Hypertension Hyperlipidemia KEELEY ROSSI MD Jul 29, 2018 11:00
[2018-07-29] MEDS ORDERED: CLOPIDOGREL 75 MG (PLAVIX) TABLET ONE (11:04)
[2018-07-29] MEDS ORDERED: ASPIRIN 325 MG (5 GR) TABLET ONE (11:04)
[2018-07-29] MEDS ORDERED: ACETAMINOPHEN 500 MG TAB (TYLENOL) PO PRN (12:00)
[2018-07-29] MEDS: NS IV 1000 ML 1,000 ML IV SCH ×2 (12:24→20:45)
[2018-07-29] MEDS: CARVEDILOL 12.5 MG (COREG) TABLET PO SCH (20:31)
[2018-07-29] MEDS ORDERED: inSUlin Protamine/ASPart 70/30 1 UNIT/0.01 ML DOSE SC SCH (21:00)
[2018-07-29] MEDS ORDERED: raNItidine (ZANTAC) 150 MG TAB NON-FORMULARY PO SCH (21:00)
[2018-07-29] MEDS ORDERED: CARVEDILOL 12.5 MG (COREG) TABLET PO SCH (21:00)
[2018-07-29] MEDS ORDERED: inSUlin NPH/REG (NovoLIN 70/30) CHARGE PER UNIT SQ SCH (21:00)
[2018-07-29] MEDS ORDERED: FAMOTIDINE 20 MG (PEPCID) TABLET PO SCH (21:00)
[2018-07-30] VITALS: BP 99/67
[2018-07-30 03:34] LABS: HEMOGLOBIN 12.9 G/DL (13.3-17.7); MEAN PLATELET VOLUME 10.5 FL (7.4-10.4); RED BLOOD COUNT 4.32 10^6/uL (4.35-5.85); RED CELL DISTRIBUTION WIDTH 14.2 % (10.0-14.5); WHITE BLOOD COUNT 11.6 10^3/uL (4.3-11.0)
[2018-07-30 03:52] LABS: CREATININE SERUM 1.54 MG/DL (0.60-1.30); POTASSIUM 3.3 MMOL/L (3.6-5.0)
[2018-07-30 03:59] LABS: DIGOXIN 0.63 NG/ML (0.80-2.00)
[2018-07-30 04:00] VITALS: BP 155/85
[2018-07-30] MEDS ORDERED: DEXTROSE 50% 50 ML (IMS) SYR ONE (04:05)
[2018-07-30] MEDS ORDERED: D5 1/2 NS 1000 ML IV SOLUTION 1,000 ML IV ONE (04:20)
[2018-07-30] MEDS ORDERED: D5 1/2 NS 1000 ML IV SOLUTION 1,000 ML IV SCH (04:30)
[2018-07-30] MEDS ORDERED: DEXTROSE 50% 50 ML (IMS) SYR IV ONE (04:30)
[2018-07-30] MEDS: NS IV 1000 ML 1,000 ML IV SCH (06:43)
[2018-07-30] MEDS ORDERED: inSUlin ASPART (NovoLOG) 1 UNIT/0.01 ML (CHARGE PER UNIT) SC SCH (07:15)
--- NOTE | 2018-07-30 07:48 | Discharge Inst-Post CATH ---
Discharge Inst-CATH Post Cardiac Cath D/C Inst Follow Up/Plan Appointment with Dr Niño's office in 1-2 weeks CARDIAC CATH DISCHARGE INSTRUCTIONS *Hold Metformin for 48 hours post heart cath. ACTIVITY * Go Home directly and rest. * Limit activity of the leg (or wrist if it was used) for 7 days including aerobics, swimming, jogging, bicycling, etc. * Restrict stair-climbing for 7 days if possible, if not, climb up with your non -cath leg, then bring together on the same step. * Avoid lifting, pushing, pulling or excessive movement of the affected extremity for 7 days. * Customary sexual activity may be resumed after 2 days-use caution not to use a position that strains or causes pain to the affected extremity. * No driving for 24 hours. * NO SMOKING. * Avoid straining for bowel movements for 7 days. * Gentle walking on level ground is allowed. * Returning to work will depend on the type of procedure and the results. Your doctor will discuss this with you. CALL YOUR DOCTOR FOR ANY OF THE FOLLOWING: *If bleeding from the puncture site occurs- Apply gentle pressure to site with clean cloth and call your doctor or EMS. * If a knot or lump forms under the skin, increases in size, or causes pain. * If bruising appears to be worsening or moving further down your leg instead of disappearing. * Temperature above 101 F. CARE OF YOUR GROIN INCISION; * Bruising or purple discoloration of the skin near the puncture site is common. * You may shower only, no bathtub bathing for 5 days. Be careful to avoid slipping as your leg may feel stiff. * If a closure device was used on your femoral artery, please see the attached guide regarding care of the device and your leg. * Leave the dressing on, until removed by office staff. CARE OF YOUR WRIST INCISION; * Bruising or purple discoloration of the skin near the puncture site is common. * You may shower. * DO NOT submerge wrist. * Leave dressing on, until removed by office staff.. KEELEY NIÑO MD Jul 30, 2018 07:48
[2018-07-30] MEDS: CARVEDILOL 12.5 MG (COREG) TABLET PO SCH (07:51)
--- NOTE | 2018-07-30 07:54 | Cardiology Progress Note ---
Subjective Date Seen by Provider: Jul 30, 2018 Time Seen by Provider: 07:51 Subjective/Events-last exam Patient is laying down in bed, denied any chest pain. No palpitation. Had a transient episode of hypoglycemia last night, he took his regular dose of 70/30 insulin and had a light dinner, became lethargic at night, blood sugar was 27, responded to D50, feeling well at this time, I asked him about his home medication, he explained that he take his medicine and check his blood pressure regularly twice a day at home. He has been managed by primary care physician Review of Systems General: No Chills, No Night Sweats, No Fatigue, No Malaise, No Appetite, No Other HEENT: No Head Aches, No Visual Changes, No Eye Pain, No Ear Pain, No Dysphasia , No Sinus Congestion, No Post Nasal Drip, No Sore Throat, No Other Pulmonary: Dyspnea; No Cough, No Pleuritic Chest Pain, No Other Cardiovascular: No: Chest Pain, Palpitations, Orthopnea, Paroxysmal Noc. Dyspnea, Edema, Lt Headedness, Other Objective-Cardiology Exam Last Set of Vital Signs Vital Signs 07/30/18 07/30/18 07/30/18 04:00 06:45 07:00 Temp 97.1 Pulse 70 Resp 21 B/P (MAP) 155/85 (108) Pulse Ox 95 O2 Delivery Nasal Cannula O2 Flow Rate 2.00 Capillary Refill : Less Than 3 Seconds I&O Intake and Output 07/29/18 23:59 Intake Total 2180 ml Output Total 1 ml Balance 2179 ml Intake Oral 480 ml IV Total 1700 ml Output Urine Total 1 ml # Voids 52 # Bowel Movements 1 General: Alert, Oriented X3, Cooperative HEENT: Atraumatic, PERRLA Neck: Supple, No JVD, No Thyromegaly Lungs: Clear to Auscultation, Normal Air Movement Heart: Normal S1, Normal S2, No Murmurs, Other (Systolic murmur at the left sternal border) Abdomen: Normal Bowel Sounds, Soft, No Tenderness, No Hepatosplenomegaly, No Masses Extremities: No Clubbing, No Cyanosis, No Edema, Normal Pulses, No Tenderness/ Swelling Skin: No Rashes, No Breakdown, No Significant Lesion Neuro: Normal Gait, Normal Speech, Strength at 5/5 X4 Ext, Normal Tone, Sensation Intact Psych/Mental Status: Mental Status NL, Mood NL Results Lab Laboratory Tests 07/30/18 03:10 A/P-Cardiology Admission Diagnosis Peripheral arterial disease Coronary artery disease Hypertension Hyperlipidemia Assessment/Plan Extensive peripheral arterial disease, multiple intervention the past, status post angina plasty and stenting to the left SFA and balloon angioplasty to the tibial peroneal trunk Coronary artery disease, multiple intervention the past Hypertension, restart home medication monitor Permanent atrial fibrillation, continue on current medication, restart Coumadin Hyperlipidemia, monitor lipids Diabetes mellitus, had transient episode of hypoglycemia last night, he was nothing by mouth during the day and had a light dinner. Probably this is the cause of his abnormally low blood sugar KEELEY ROSSI MD Jul 30, 2018 07:53
[2018-07-30] MEDS ORDERED: DIGOXIN 0.125 MG (LANOXIN) TAB PO SCH ×2 (09:00)
[2018-07-30] MEDS ORDERED: ASPIRIN E.C. 81 MG (ECOTRIN) TAB PO SCH (09:00)
[2018-07-30] MEDS ORDERED: CLOPIDOGREL 75 MG (PLAVIX) TABLET PO SCH (09:00)
[2018-07-30] MEDS ORDERED: LOSARTAN 100 MG (COZAAR) TABLET PO SCH ×2 (09:00)
== END 2018-07-30 10:30 | disposition home or self-care (01) ==
LOC: CATH 06:47 → ICU 11:13 → CATH 07-30 10:30
PROVIDERS: ATTEND Internal Medicine Cardiovascular Disease
DX: I70.203 Unspecified atherosclerosis of native arteries of extremities, bilateral legs (principal); Z11.2 Encounter for screening for other bacterial diseases; I12.9 Hypertensive chronic kidney disease with stage 1 through stage 4 chronic kidney disease, or unspecified chronic kidney disease; E78.5 Hyperlipidemia, unspecified; L97.909 Non-pressure chronic ulcer of unspecified part of unspecified lower leg with unspecified severity; E11.40 Type 2 diabetes mellitus with diabetic neuropathy, unspecified; N18.9 Chronic kidney disease, unspecified; I65.23 Occlusion and stenosis of bilateral carotid arteries; I48.2 Chronic atrial fibrillation; J44.9 Chronic obstructive pulmonary disease, unspecified; I87.2 Venous insufficiency (chronic) (peripheral); Z79.82 Long term (current) use of aspirin; Z79.899 Other long term (current) drug therapy; Z79.4 Long term (current) use of insulin
CPT/HCPCS: 36415; 37226; 71045; 75716; 80048; 80053; 80061; 80162; 82962; 85027; 85347; 85610; 85730; 87081

== ENCOUNTER → 2018-08-04 | Outpatient (CLI) | payer MEDICARE, BC ==
[~2018-08-04] MED LIST changes: +CHOL20002 PO
== END ==
LOC: WOUNDCARE 13:54
PROVIDERS: ATTEND Surgery
DX: L97.422 Non-pressure chronic ulcer of left heel and midfoot with fat layer exposed (principal); E11.621 Type 2 diabetes mellitus with foot ulcer; E11.42 Type 2 diabetes mellitus with diabetic polyneuropathy; I70.244 Atherosclerosis of native arteries of left leg with ulceration of heel and midfoot
CPT/HCPCS: 11042

== ENCOUNTER → 2018-08-12 | Outpatient (CLI) | payer MEDICARE, BC | LOC: WOUNDCARE 09:44 | PROVIDERS: ATTEND Orthopaedic Surgery Hand Surgery | DX: E11.621 Type 2 diabetes mellitus with foot ulcer (principal); L97.422 Non-pressure chronic ulcer of left heel and midfoot with fat layer exposed; E11.42 Type 2 diabetes mellitus with diabetic polyneuropathy; I70.244 Atherosclerosis of native arteries of left leg with ulceration of heel and midfoot | CPT/HCPCS: 11042 ==

== ENCOUNTER → 2018-08-26 | Outpatient (CLI) | payer MEDICARE, BC | LOC: WOUNDCARE 10:03 | PROVIDERS: ATTEND Orthopaedic Surgery Hand Surgery | DX: E11.621 Type 2 diabetes mellitus with foot ulcer (principal); I70.244 Atherosclerosis of native arteries of left leg with ulceration of heel and midfoot; L97.422 Non-pressure chronic ulcer of left heel and midfoot with fat layer exposed; E11.42 Type 2 diabetes mellitus with diabetic polyneuropathy | CPT/HCPCS: 11042 ==

== ENCOUNTER → 2018-08-26 | Outpatient (CLI) | payer MEDICARE, BC | LOC: CARD 13:50 | PROVIDERS: ATTEND Internal Medicine Cardiovascular Disease | DX: I48.2 Chronic atrial fibrillation (principal); I25.10 Atherosclerotic heart disease of native coronary artery without angina pectoris; R06.09 Other forms of dyspnea; J44.9 Chronic obstructive pulmonary disease, unspecified; E11.9 Type 2 diabetes mellitus without complications; I08.3 Combined rheumatic disorders of mitral, aortic and tricuspid valves | CPT/HCPCS: 93306 ==

== ENCOUNTER → 2018-09-02 | Outpatient (CLI) | payer MEDICARE, BC | LOC: WOUNDCARE 10:02 | PROVIDERS: ATTEND Orthopaedic Surgery Hand Surgery | DX: E11.621 Type 2 diabetes mellitus with foot ulcer (principal); L97.422 Non-pressure chronic ulcer of left heel and midfoot with fat layer exposed; E11.42 Type 2 diabetes mellitus with diabetic polyneuropathy; I70.244 Atherosclerosis of native arteries of left leg with ulceration of heel and midfoot | CPT/HCPCS: 11042 ==

== ENCOUNTER → 2018-09-09 | Outpatient (CLI) | payer MEDICARE, BC | LOC: WOUNDCARE 09:53 | PROVIDERS: ATTEND Orthopaedic Surgery Hand Surgery | DX: E11.621 Type 2 diabetes mellitus with foot ulcer (principal); I70.244 Atherosclerosis of native arteries of left leg with ulceration of heel and midfoot; L97.421 Non-pressure chronic ulcer of left heel and midfoot limited to breakdown of skin; E11.42 Type 2 diabetes mellitus with diabetic polyneuropathy | CPT/HCPCS: 99212 ==

== ENCOUNTER → 2018-09-16 | Outpatient (CLI) | payer MEDICARE, BC | LOC: WOUNDCARE 09:52 | PROVIDERS: ATTEND Orthopaedic Surgery Hand Surgery | DX: E11.621 Type 2 diabetes mellitus with foot ulcer (principal); I70.244 Atherosclerosis of native arteries of left leg with ulceration of heel and midfoot; L97.422 Non-pressure chronic ulcer of left heel and midfoot with fat layer exposed; E11.42 Type 2 diabetes mellitus with diabetic polyneuropathy | CPT/HCPCS: 11042 ==

== ENCOUNTER → 2018-09-30 | Outpatient (CLI) | payer MEDICARE, BC | LOC: WOUNDCARE 09:59 | PROVIDERS: ATTEND Surgery | DX: E11.621 Type 2 diabetes mellitus with foot ulcer (principal); I70.244 Atherosclerosis of native arteries of left leg with ulceration of heel and midfoot; L97.422 Non-pressure chronic ulcer of left heel and midfoot with fat layer exposed; E11.42 Type 2 diabetes mellitus with diabetic polyneuropathy | CPT/HCPCS: 11042 ==

== ENCOUNTER → 2018-10-07 | Outpatient (CLI) | payer MEDICARE, BC | LOC: WOUNDCARE 09:43 | PROVIDERS: ATTEND Surgery | DX: E11.621 Type 2 diabetes mellitus with foot ulcer (principal); I70.244 Atherosclerosis of native arteries of left leg with ulceration of heel and midfoot; L97.422 Non-pressure chronic ulcer of left heel and midfoot with fat layer exposed; E11.42 Type 2 diabetes mellitus with diabetic polyneuropathy | CPT/HCPCS: 11042 ==

== ENCOUNTER → 2018-10-14 | Outpatient (CLI) | payer MEDICARE, BC ==
[~2018-10-14] MED LIST changes: +ATOR10TA66 PO; +CHOL5000 PO; +SILV480G TOP
== END ==
LOC: WOUNDCARE 09:55
PROVIDERS: ATTEND Surgery
DX: E11.621 Type 2 diabetes mellitus with foot ulcer (principal); I70.244 Atherosclerosis of native arteries of left leg with ulceration of heel and midfoot; L97.422 Non-pressure chronic ulcer of left heel and midfoot with fat layer exposed; E11.42 Type 2 diabetes mellitus with diabetic polyneuropathy
CPT/HCPCS: 11042; 87070; 87075; 87077; 87186; 87205

== ENCOUNTER 2018-10-15 16:51 | Inpatient (IN) | payer MEDICARE, BC ==
[~2018-10-15] VITALS: Ht 167.6 cm; Wt 96.8 kg
[~2018-10-15 16:51] MED LIST changes: -ATOR10TA66 PO; -CHOL5000 PO; +LOSA100T57 PO; -LOSA100T8 PO; +LOSA25TA41 PO; -LOSA25TA6 PO; +LOSA50TA63 PO; -LOSA50TA7 PO; -SILV480G TOP
--- NOTE | 2018-10-15 17:40 | NUR ---
ANIYAH MANZANARES admitted to room 406-1, with an admitting diagnosis of ACUTE ON CHRONIC RESPIRATORY FAILURE, LEUKOCYTOSIS, on 10/15/18 from DIRECT ADMIT via WHEELCHAIR accompanied by ADULT SON. ANIYAH MANZANARES introduced to surroundings, call light, bed controls, phone, TV, temperature control, lights, meal times, smoking policy, visitor policy, side rail policy, bathrooms and showers. Patient Rights given to patient in the handbook. ANIYAH MANZANARES verbalizes understanding that [facility] is not responsible for the loss or damage to any personal effects or valuables that are kept in the patients possession during their hospitalization. The following Patient Care Plans were discussed with the PATIENT AND HIS SON: Discharge Planning, RESPIRATORY FAILURE and KNOWLEDGE DEFICIT. ANIYAH MANZANARES verbalizes understanding of Interdisciplinary Patient Education. Patient and/or family were informed about the Rapid Response Team and its purpose.
[2018-10-15 17:50] VITALS: BP 166/82
--- NOTE | 2018-10-15 18:45 | NUR ---
CALLED DR SANCHEZ'S CELL PHONE TO INQUIRE ABOUT ORDERS FOR THE PATIENT. LEFT MESSAGE, NO RETURN CALL. ACCOUNTANT CERTIFIED PUBLIC NOTIFIED. SHE WILL TRY TO GET A HOLD OF DR SANCHEZ.
[2018-10-15 19:45] VITALS: BP 187/91
[2018-10-15] MEDS ORDERED: LACTATED RINGERS 1,000 ML IV SCH (20:17)
[2018-10-15] MEDS ORDERED: FUROSEMIDE 40 MG/4 ML INJ (LASIX) IVP ONE (20:45)
[2018-10-15] MEDS ORDERED: LACTATED RINGERS 1,000 ML IV ONE (20:52)
[2018-10-15 20:58] LABS: BASOPHILS % (AUTO) 0 % (0-10); EOSINOPHILS % (AUTO) 0 % (0-10); HEMATOCRIT 33 % (40-54); HEMOGLOBIN 11.6 G/DL (13.3-17.7); LYMPHOCYTES # (AUTO) 0.8 X 10^3 (1.0-4.0); LYMPHOCYTES % (AUTO) 3 % (12-44); MEAN CORPUSCULAR HEMOGLOBIN 31 PG (25-34); MEAN CORPUSCULAR HGB CONC 35 G/DL (32-36); MEAN CORPUSCULAR VOLUME 87 FL (80-99); MEAN PLATELET VOLUME 10.8 FL (7.4-10.4); MONOCYTES # (AUTO) 2.5 X 10^3 (0.0-1.0); MONOCYTES % (AUTO) 11 % (0-12); NEUTROPHILS # (AUTO) 19.8 X 10^3 (1.8-7.8); NEUTROPHILS % (AUTO) 86 % (42-75); PLATELET COUNT 138 10^3/uL (130-400); RED BLOOD COUNT 3.79 10^6/uL (4.35-5.85); RED CELL DISTRIBUTION WIDTH 14.3 % (10.0-14.5); WHITE BLOOD COUNT 23.1 10^3/uL (4.3-11.0)
[2018-10-15] MEDS ORDERED: FUROSEMIDE 40 MG/4 ML INJ (LASIX) ONE (21:03)
[2018-10-15] MEDS ORDERED: inSUlin DETERMIR 1 UNIT/0.01 ML (LEVEMIR) CHARGE PER UNIT SQ ONE (21:04)
[2018-10-15] MEDS ORDERED: inSUlin ASPART (NovoLOG) 1 UNIT/0.01 ML (CHARGE PER UNIT) ONE (21:05)
--- NOTE | 2018-10-15 21:06 | Diagnostic Imaging Report ---
EXAM: CHEST 1 VIEW, AP/PA ONLY INDICATION: Dyspnea on exertion. COMPARISON: Chest radiograph 07/29/2018. FINDINGS: Normal heart size. Increasing interstitial opacities throughout both lungs. No focal consolidation. No pleural effusion or pneumothorax. Chronic right rib fractures. IMPRESSION: Increasing interstitial opacities suspicious for interstitial edema. An infectious process is not excluded. Dictated by: Dictated on workstation # [id number]
[2018-10-15] MEDS: inSUlin DETERMIR 1 UNIT/0.01 ML (LEVEMIR) CHARGE PER UNIT SQ SCH (21:15)
[2018-10-15] MEDS: inSUlin ASPART (NovoLOG) 1 UNIT/0.01 ML (CHARGE PER UNIT) SC SCH (21:15)
[2018-10-15 21:32] LABS: ALBUMIN 2.5 GM/DL (3.2-4.5); BILIRUBIN,TOTAL 1.1 MG/DL (0.1-1.0); CALCIUM 8.5 MG/DL (8.5-10.1); CREATININE SERUM 2.03 MG/DL (0.60-1.30); POTASSIUM 3.8 MMOL/L (3.6-5.0); TOTAL PROTEIN 5.8 GM/DL (6.4-8.2)
[2018-10-15 21:57] LABS: BAND NEUTROPHILS 1 %; BASOPHILS % (MANUAL) 0 %; EOSINOPHILS % (MANUAL) 0 %; LYMPHOCYTES % (MANUAL) 5 %; MONOCYTES % (MANUAL) 5 %; NEUTROPHILS % (MANUAL) 89 %; RBC MORPH NORMAL
[2018-10-15] MEDS: AMPICILLIN/SULBACTAM INJECTION 1.5 GM in NS (IVPB) 100 ML IV SCH (22:18)
[2018-10-16] MEDS ORDERED: RT-ALBUTEROL/IPRATROPIUM 3 ML (DUONEB) VIAL INH PRN (00:15)
[2018-10-16 00:32] VITALS: BP 159/81
[2018-10-16 00:37] LABS: BILIRUBIN,URINE NEGATIVE (NEGATIVE); CLARITY,URINE CLEAR; COLOR,URINE YELLOW; GLUCOSE, URINE (UA) 2+ (NEGATIVE); KETONES,URINE NEGATIVE (NEGATIVE); LEUKOCYTE ESTERASE ,URINE NEGATIVE (NEGATIVE); NITRITE,URINE NEGATIVE (NEGATIVE); PH,URINE 7 (5-9); PROTEIN,URINE 4+ (NEGATIVE); UROBILINOGEN,URINE NORMAL (NORMAL)
[2018-10-16 00:46] LABS: BACTERIA,URINE FEW /HPF; SQUAMOUS EPITHELIAL CELL,UR 0-2 /HPF; WBC,URINE 0-2 /HPF
--- NOTE | 2018-10-16 00:53 | History & Physical ---
History of Present Illness History of Present Illness Reason for visit/HPI 82 yo M direct admit for acute on chronic respiratory failure manifesting with increased work of breathing and dyspnea with ambulation. I suspect he has aspiration pneumonitis that is developing into pneumonia thus we will start unasyn. Patient's respiratory difficulty was noted to occur acutely today which he reports he vomited last night (unsure of time as he is currently home alone- because his went to [place] to see her daughter). He is being checked on by a family member and home health. Patient was seen at [facility] today and labs ordered to further evaluate with low threshold for admission. Given a WBC of 26K (at [facility]-lab) and creatinine elevated to 2 from his baseline of 1.3- he also has acute on chronic renal failure likely due to poor PO intake. He is currently being treated for a left heel ulcer with [facility] and it was debrided/cultured on 10/14/18. Patient also has hypertension that is not well controlled but his diabetes is decently controlled based on hga1c of 6.2. Cxr showing increased interstitial opacities. Admitted to further evaluate. He does appear to have some confusion as well- expect this to clear up as he improves overall. Also ordering a urinanalysis as he has a history of ESBL. Date of Admission Oct 15, 2018 at 17:15 Date Seen by a Provider: Oct 16, 2018 Time Seen by a Provider: 08:30 I consulted on this patient on 10/16/18 00:47 Attending Physician Hugo Sanchez MD Admitting Physician Hugo Sanchez MD Consult Allergies and Home Medications Allergies Coded Allergies: sulfamethoxazole (Verified Allergy, Mild, RASH, 11/13/17) trimethoprim (Verified Allergy, Mild, RASH, 11/13/17) Home Medications Acetaminophen 500 Mg Tablet, 1,000 MG PO Q6H PRN for PAIN-MILD, (Reported) Aspirin 81 Mg Tablet.dr, 81 MG PO 1400, (Reported) Carvedilol 12.5 Mg Tablet, 18.75 MG PO BID, (Reported) TAKES 1 & 1/2 (12.5MG) TABLETS Cholecalciferol (Vitamin D3) 2,000 Unit Capsule, 4,000 UNIT PO DAILY, (Reported) Clopidogrel Bisulfate 75 Mg Tablet, 75 MG PO DAILY, (Reported) Dextrose/Dextrin/Maltose 31 Gm Gel..gram., 15 GM PO UD PRN for BS<70MG/DL, ( Reported) GIVE 15GM AND MAY REPEAT IN 10 MINUTES IF BLOOD SUGAR REMAINS BELOW 70MG/DL Digoxin 125 Mcg Tablet, 125 MCG PO DAILY, (Reported) Ferrous Sulfate 325 Mg Tablet, 325 MG PO BID, (Reported) Furosemide 20 Mg Tablet, 20 MG PO BID, (Reported) Glucagon,Human Recombinant 1 Mg/Kit Soln, 1 MG IM UD PRN for BS<40MG/DL, ( Reported) Guaifenesin/Codeine 10 Ml Syrp, 5 ML PO Q4H PRN for COUGH, (Reported) Insuln Asp Prt/Insulin Aspart 300 Units/3 Ml Solution, 15 UNITS SQ DAILY, ( Reported) Insuln Asp Prt/Insulin Aspart 300 Units/3 Ml Solution, 15 UNITS SQ HS, (Reported ) Ipratropium/Albuterol Sulfate 3 Ml Ampul.neb, 3 ML IH Q4H PRN for DYSPNEA, ( Reported) Krill Oil 500 Mg Capsule, 500 MG PO DAILY, (Reported) Losartan Potassium 100 Mg Tablet, 100 MG PO DAILY, (Reported) Potassium Chloride 20 Meq Tablet.er, 20 MEQ PO BID, (Reported) Ranitidine HCl 150 Mg Tablet, 150 MG PO BID, (Reported) Trospium Chloride 60 Mg Cap.er.24h, 60 MG PO DAILY, (Reported) Warfarin Sodium 5 Mg Tablet, 7.5 MG PO MWF, (Reported) TAKES 1 & 1/2 (5MG) TABLETS Warfarin Sodium 5 Mg Tablet, 5 MG PO TuThSASU, (Reported) Patient Home Medication List Home Medication List Reviewed: Yes Past Rpgimtq-Gpsqlv-Zwltql Hx Patient Social History Alcohol Use: Denies Use Recreational Drug Use: No Former Smoker, Quit: Jul 29, 2005 Type Used: Cigarettes 2nd Hand Smoke Exposure: No Physical Abuse Screen: No Sexual Abuse: No Recent Hopitalizations: No Immunizations Up To Date Tetanus Booster (TDap): Less than 5yrs Pediatric: No Date of Pneumonia Vaccine: Jun 29, 2017 Date of Influenza Vaccine: Jul 15, 2018 Seasonal Allergies Seasonal Allergies: No Surgeries Yes (CATARACTS, CARPAL TUNNEL, BILAT.THUMBS) Eye Surgery, Orthopedic, Prostatectomy, Tonsillectomy, Vascular Surgery Respiratory Yes (02 4l at hs, used to wear cpap) COPD, Pneumonia, Sleep Apnea Currently Using CPAP: No (DOESN'T USE IT) Currently Using BIPAP: No Cardiovascular Yes Atrial Fibrillation, High Cholesterol, Hypertension Neurological Yes (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) Neuropathy Reproductive System Hx Reproductive Disorders: No Sexually Transmitted Disease: No HIV/AIDS: No Genitourinary Yes (TURP) Benign Prostatic Hyperpl, Renal Failure, UTI-Chronic Gastrointestinal Yes Gastroesophageal Reflux, Chronic Constipation Musculoskeletal Yes (GENERALIZED WEAKNESS; FREQUENT FALLS ) Endocrine History of Endocrine Disorders: Yes Endocrine Disorders: Diabetes, Insulin dep HEENT History of HEENT Disorders: Yes HEENT Disorders: Macular Degeneration Hearing Impairment: Hard of Hearing Cancer Yes (BASAL CELL CARCINOMA) Skin Did You Recieve Any Treatments: No Psychosocial History of Psychiatric Problem: Yes Behavioral Health Disorders: Sleep Difficulties Integumentary History of Skin or Integumenta: Yes (CELLULITIS IN LEFT KNEE EARLY OCTOBER 2013) Skin/Integumentary Disorders: Recent Skin Changes Blood Transfusions History of Blood Disorders: No Adverse Reaction to a Blood Tr: No Family Medical History Significant Family History: Cancer Family Hx: COPD 19 FATHER Colon cancer 19 MOTHER Diabetes mellitus G8 SISTER Drug abuse G8 SISTER Lung cancer 19 FATHER Polio G8 BROTHER Sarcoidosis G8 BROTHER Review of Systems Review of Systems General: No Chills, No Night Sweats HEENT: No Head Aches, No Visual Changes Pulmonary: Dyspnea, Cough Cardiovascular: No: Chest Pain, Palpitations Gastrointestinal: Nausea; No: Vomiting, Abdominal Pain Genitourinary: No Dysuria, No Frequency Musculoskeletal: No: neck pain, shoulder pain Neurological: Weakness, Incoordination, Confusion Physical Exam Vital Signs Vital Signs - First Documented 10/15/18 10/15/18 17:50 19:45 Temp 98.9 Pulse 84 Resp 24 B/P (MAP) 166/82 (110) Pulse Ox 96 O2 Delivery Room Air O2 Flow Rate 2.00 Capillary Refill : Height, Weight, BMI Height: 5'6.00" Weight: 213lbs. 5.0oz. 96.265461fh; 34.4 BMI Method:Stated General Appearance: No Apparent Distress (while resting but respiratory distress with ambulating/sitting up.) HEENT: PERRL/EOMI Neck: Non Tender, Supple Respiratory: Chest Non Tender, Lungs Clear, Normal Breath Sounds, No Accessory Muscle Use Cardiovascular: Other (irregular rhythm, regular rate) Gastrointestinal: Normal Bowel Sounds, Non Tender, Soft Rectal: Deferred Back: Normal Inspection, No CVA Tenderness Extremity: Non Tender, No Calf Tenderness, Pedal Edema (up to knees- stasis dermatitis.) Neurologic/Psychiatric: Alert, Disoriented Skin: Normal Color, Warm/Dry Lymphatic: No Adenopathy Assessment/Plan Assessment/Plan Admission Dx acute on chronic respiratory failure acute on chronic kidney failure aspiration pneumonitis pneumonia Admission Status: Inpatient Order (span 2 midnights) Reason for Inpatient Admission: Patient was admitted for acute on chronic respiratory failure, acute on chronic kidney failure, aspiration pneumonitis, pneumonia. Along with his other co-morbidities of diabetes mellitus II, HTN, poor circulation and now living home alone until his returns next week- best decision was to admit as his breathing was labored and he may wear out fast. Expect patient to stay for 2 midnights to get his acute conditions under control. Assessment and Plan J96.21 acute on chronic respiratory failure- monitor oxygen requirements- home usage ranges from room air to 4L. acute on chronic kidney failure- fluid hydration IVF aspiration pneumonitis- respiratory therapy consult pneumonia- covering with unasyn insulin dependent diabetes mellitus II- last hga1c 10/15/18- 6.2 holding his home 70/30 dosage and will start with 10 units levemir, SSA. Atriall fibrillation- on warfarin- rechecking INR Chronic diastolic heart failure- follows with Dr. Niño DVT ppx- on warfarin. Dispo: admitted for further evaluation as his respiratory condition declined rapidly while he was home alone. Also his kidney function and cognition has declined within 24hours. 10/16/2018- WBC improved to 17k, Creatinine improved to 1.8 with IVF. lactic acid <1 hypokalemia- replacing -d/c IVFs. -PT to evaluate patient- consider patient may been SNF placement- Case Management consulted- if his respiratory status continues to improve may d/c to home over the weekend vs SNF. -will give a one time dose of 10mg dexamethasone IV. Clinical Quality Measures DVT/VTE Risk/Contraindication: Risk Factor Score Per Nursin RFS Level Per Nursing on Admit: 4+=Very High HUGO SANCHEZ MD Oct 16, 2018 00:53
[2018-10-16] MEDS ORDERED: LACTATED RINGERS 1,000 ML IV SCH (01:07)
[2018-10-16] MEDS: RT-ALBUTEROL/IPRATROPIUM 3 ML (DUONEB) VIAL INH SCH ×4 (02:06→20:45)
[2018-10-16 04:23] VITALS: BP 135/76
[2018-10-16 05:10] LABS: HEMOGLOBIN 11.5 G/DL (13.3-17.7); MEAN PLATELET VOLUME 10.7 FL (7.4-10.4); RED BLOOD COUNT 3.72 10^6/uL (4.35-5.85); RED CELL DISTRIBUTION WIDTH 14.5 % (10.0-14.5); WHITE BLOOD COUNT 17.7 10^3/uL (4.3-11.0)
[2018-10-16] MEDS: AMPICILLIN/SULBACTAM INJECTION 1.5 GM in NS (IVPB) 100 ML IV SCH ×3 (05:24→21:30)
[2018-10-16 05:30] LABS: CALCIUM 8.6 MG/DL (8.5-10.1); CREATININE SERUM 1.84 MG/DL (0.60-1.30); POTASSIUM 3.5 MMOL/L (3.6-5.0)
[2018-10-16] MEDS: inSUlin ASPART (NovoLOG) 1 UNIT/0.01 ML (CHARGE PER UNIT) SC SCH ×4 (05:45→21:32)
[2018-10-16 08:00] VITALS: BP 174/68
[2018-10-16] MEDS: FUROSEMIDE 40 MG/4 ML INJ (LASIX) IVP SCH (08:28)
[2018-10-16] MEDS: POTASSIUM CL 10MEQ/50ML IVPB 50 ML IV SCH ×3 (08:50→10:52)
[2018-10-16] MEDS: MAGNESIUM OXIDE (MAG-OX)400 MG TAB PO SCH ×2 (08:50→21:38)
[2018-10-16] MEDS ORDERED: KCL 10 MEQ TAB (MICRO K) PO SCH (09:00)
[2018-10-16] MEDS ORDERED: ATOR10TA66 PO (09:49)
[2018-10-16] MEDS ORDERED: CLOP75TA28 PO (09:49)
--- NOTE | 2018-10-16 10:23 | NUR ---
CM/SS, respond to consult. WOUNDCARE: Established [facility] ([facility]), goes weekly. DME: Established liquid home O2 with [facility], transferred from [facility] Patient. SUMMARY: Patient resides at home with his spouse, Debby Bourne. She is gone out of state at this time to visit her daughter for a birthday and will return next week. Patient's son Joaquín Garcia, his Helga, and their children have been with patient intermittently for support and monitor. He has been stable at home until acute onset of illness. Patient will return home at discharge as before. Helga Garcia here at this time, she confirms they will be staying with patient intermittently until Debby returns if he leaves hospital before she is back. Helga asked that they be updated regarding his need for more care if that is the case since he has alone time under their current schedule. C if physician orders for monitor of resolving pneumonia or other health conditions. History of placement with [facility], short term rehab to home. Addendum: 10/16/18 at 1031 by MARÍA PLAZA Helga Garcia [facility] They reside a few blocks from patient and are available to assist.
--- NOTE | 2018-10-16 10:29 | Physical Therapy Evaluation ---
PT Evaluation-General Medical Diagnosis Admission Date Oct 15, 2018 at 17:15 Medical Diagnosis: Respiratory Failure, Pneumonia Onset Date: Oct 15, 2018 Therapy Diagnosis Therapy Diagnosis: weakness, debility Height/Weight Height (Feet): 5 Height (Inches): 6.00 Weight (Pounds): 213 Weight (Ounces): 5.0 Precautions Precautions/Isolations: Contact Isolation, Fall Prevention, Standard Precautions Weight Bear Status Right Lower Extremity: Right Weight Bearing/Tolerated Left Lower Extremity: Left Weight Bearing/Tolerated Referral Physician: Dr. Alexander Reason for Referral: Evaluation/Treatment Medical History Pertinent Medical History: Atrial Fib, COPD, DM, Dementia, GERD, HTN, Macular Degenertion, Neuropathy, PVD, Renal Insufficiency, Smoking Social History Home: Single Level Current Living Status: Alone Entry Into Home: Ramp Prior/Core FIM Prior Level of Function Therapy Code Descriptions/Definitions Functional [place] Measure: 0=Not Assessed/NA 4=Minimal Assistance 1=Total Assistance 5=Supervision or Setup 2=Maximal Assistance 6=Modified [place] 3=Moderate Assistance 7=Complete [place] Therapy Quality Codes: 6 Independent with activity with or without an assistive device 5 Patient requires set up or clean up by helper. Patient completes activity by themselves 4 Supervision or touching assist (CGA). [place] provide cues , steadying assist 3 The helper provides less than half the effort to complete the activity 2 The helper provides more than half the effort to complete the activity 1 Dependent. The helper does all the effort to complete an activity 7 Patient refused to complete or attempt activity 9 The patient did not perform the activity before the current illness or injury 88 Not attempted due to Medical conditions or safety concerns Functional Abilities and Goals: Independent: Patient completed the activities by him/herself, with or without an assistive device, with no assistance from a helper. Needed Some Help: Patient needed partial assistance from another person to complete activities. Dependent: A helper completed the activities for the patient. Unknown: Not Applicable: Bed Mobility: 7 Transfers (B,C,W/C) (FIM): 6 Gait: 6 Indoor Mobility (Ambulation): Independent Prior Devices Use: Walker Prior Device Use: FWW PT Evaluation-Current Subjective Pt was sitting EOB eating breakfast and talking to daughter. Pt agrees to PT. Pain Numeric Pain Scale: 0-No Pain Location: No Pain Reported Pt/Family Goals Pt to return home indep. Objective Patient Orientation: Person, Place, Situation, Normal For Age Attachments: Oxygen (4L), IV ROM/Strength ROM Lower Extremities WNL Strength Lower Extremities WNL Sensory Vision: Functional Hearing: Functional Sensation Right Lower Extremit: Intact Sensation Left Lower Extremity: Intact Transfers Therapy Code Descriptions/Definitions Functional [place] Measure: 0=Not Assessed/NA 4=Minimal Assistance 1=Total Assistance 5=Supervision or Setup 2=Maximal Assistance 6=Modified [place] 3=Moderate Assistance 7=Complete [place] Transfers (B, C, W/C) (FIM): 4 Sit to/from Stand: 4 Gait Mode of Locomotion: Walk Anticipated Mode of Locomotion: Walk Gait (FIM): 4 Distance (FIM): 3=150 ft Distance: 150' Gait Level of Assist: 4 Gait Persons Needed: 1 Gait Assistive Device: FWW Comments/Gait Description Pt needed cues to keep walker close to pt. Balance Sitting Static: Good Sitting Dynamic: Good Standing Static: Good Standing Dynamic: Fair Assessment/Needs Pt was able to sit<>stand from EOB to FWW with CGA. Pt able to amb. 150' with FWW and CGA along with verbal cues to keep FWW close to pt. Pt gets distracted at things in the [place] and starts to put FWW way out in front of him. Pt returned to EOB to finish eating breakfast. Pt has all needs met and is in with his daughter. Rehab Potential: Good PT Short Term Goals Short Term Goals Time Frame: Oct 23, 2018 Transfers (B,C,W/C) (FIM): 6 Gait (FIM): 6 Distance (FIM): 3=150 ft Gait Distance Comment: 300' Gait Level of Assist: 6 Gait Assistive Device: FWW PT Plan Problem List Problem List: Activity Tolerance, Functional Strength, Safety, Balance, Gait, Transfer, Bed Mobility Treatment/Plan Treatment Plan: Continue Plan of Care Treatment Plan: Bed Mobility, Education, Functional Activity Amanda, Functional Strength, Gait, Safety, Therapeutic Exercise, Transfers Treatment Duration: Oct 23, 2018 Frequency: 6 times per week Estimated Hrs Per Day: .25 hour per day Patient and/or Family Agrees t: Yes Discharge Recommendations Therapy D/C Recommendations: Home w/ Family Support Time/GCodes Time In: 951 Time Out: 1006 Total Billed Treatment Time: 15 Total Billed Treatment 1 visit EVlow 15 min NIKHIL LEBLANC PT Oct 16, 2018 10:28
[2018-10-16] MEDS ORDERED: ONDA4TAB10 PO (11:08)
[2018-10-16] MEDS ORDERED: SILV480G TOP (11:08)
[2018-10-16] MEDS ORDERED: POTA20TA8 PO (11:08)
[2018-10-16] MEDS ORDERED: CHOL5000 PO (11:08)
--- NOTE | 2018-10-16 11:09 | NUR ---
CALLED THE PATIENTS [facility] AND WENT OVER THE EXT MED HX WITH HER. SHE VERIFIED HOW HE TAKES EACH MEDICATION. THE FUROSEMIDE 20MG WAS FILLED #90 FOR 90 DAYS RECENTLY HOWEVER SHE STATES HE IS NOW TAKING 2 TABS EVERY MORNING. HIS CURRENT WARFARIN DOSE IS 7.5MG FRI WED FRI AND 5MG ALL OTHER DAYS. HE IS TAKING VITAMIN D3 5000 UNITS DAILY, ASPIRIN 81MG DAILY, AND TYLENOL PRN OTC. SHE VERIFIED HIS NOVOLOG 70-30 DOSE IS 17 UNITS BID - SHE STATES HE DOES NOT DO WELL ON A SLIDING SCALE.
[2018-10-16 12:00] VITALS: BP 153/86
[2018-10-16] MEDS ORDERED: NON-FORMULARY MEDICATION 1 EA EA (Ondansetron HCl 4 MG) PO PRN (12:15)
[2018-10-16] MEDS ORDERED: ONDANSETRON 4 MG/2 ML (SDV) Z0FRAN IV PRN (12:15)
[2018-10-16] MEDS ORDERED: NON-FORMULARY MEDICATION 1 EA EA (Acetaminophen (Tylenol Extra Strength) 1,000 MG) PO PRN (12:15)
[2018-10-16] MEDS: CLOPIDOGREL 75 MG (PLAVIX) TABLET PO SCH (12:22)
[2018-10-16 16:00] VITALS: BP 172/80
[2018-10-16] MEDS: KCL 20 MEQ TAB (K-DUR) PO SCH (18:03)
[2018-10-16 19:52] VITALS: BP 149/87
[2018-10-16] MEDS: ACETAMINOPHEN 500 MG TAB (TYLENOL) PO PRN (19:52)
--- NOTE | 2018-10-16 19:55 | NUR ---
1950-pt requesting some prn Tylenol for leg pain-pt reports he frequently has leg pain prn tylenol given 2024-pt denies pain at this time.
[2018-10-16] MEDS: inSUlin DETERMIR 1 UNIT/0.01 ML (LEVEMIR) CHARGE PER UNIT SQ SCH (21:33)
[2018-10-16] MEDS: ATORVASTATIN 10 MG (LIPITOR) TABLET PO SCH (21:33)
[2018-10-16] MEDS: ASPIRIN E.C. 81 MG (ECOTRIN) TAB PO SCH (21:34)
[2018-10-16] MEDS: CARVEDILOL 12.5 MG (COREG) TABLET PO SCH (21:34)
[2018-10-16] MEDS: warFARin 5 MG (COUMADIN) TAB PO SCH (21:35)
[2018-10-17 00:27] VITALS: BP 189/78
[2018-10-17] MEDS: RT-ALBUTEROL/IPRATROPIUM 3 ML (DUONEB) VIAL INH SCH ×4 (04:21→20:45)
[2018-10-17 04:56] VITALS: BP 159/77
[2018-10-17] MEDS: inSUlin ASPART (NovoLOG) 1 UNIT/0.01 ML (CHARGE PER UNIT) SC SCH ×4 (05:10→21:43)
[2018-10-17] MEDS: AMPICILLIN/SULBACTAM INJECTION 1.5 GM in NS (IVPB) 100 ML IV SCH ×3 (06:50→21:41)
[2018-10-17] MEDS: KCL 20 MEQ TAB (K-DUR) PO SCH ×2 (06:50→17:28)
[2018-10-17 07:03] LABS: BASOPHILS % (AUTO) 0 % (0-10); EOSINOPHILS # (AUTO) 0.2 10^3/uL (0.0-0.3); EOSINOPHILS % (AUTO) 2 % (0-10); HEMATOCRIT 29 % (40-54); LYMPHOCYTES # (AUTO) 1.6 X 10^3 (1.0-4.0); LYMPHOCYTES % (AUTO) 13 % (12-44); MEAN CORPUSCULAR HEMOGLOBIN 31 PG (25-34); MEAN CORPUSCULAR HGB CONC 35 G/DL (32-36); MEAN CORPUSCULAR VOLUME 89 FL (80-99); MEAN PLATELET VOLUME 11.1 FL (7.4-10.4); MONOCYTES # (AUTO) 1.8 X 10^3 (0.0-1.0); MONOCYTES % (AUTO) 15 % (0-12); NEUTROPHILS # (AUTO) 8.3 X 10^3 (1.8-7.8); NEUTROPHILS % (AUTO) 70 % (42-75); PLATELET COUNT 141 10^3/uL (130-400); RED BLOOD COUNT 3.26 10^6/uL (4.35-5.85); RED CELL DISTRIBUTION WIDTH 14.3 % (10.0-14.5); WHITE BLOOD COUNT 11.9 10^3/uL (4.3-11.0)
[2018-10-17 07:26] LABS: INR 1.9 (0.8-1.4)
[2018-10-17 07:29] LABS: CALCIUM 8.5 MG/DL (8.5-10.1); CREATININE SERUM 1.91 MG/DL (0.60-1.30); MAGNESIUM 1.7 MG/DL (1.8-2.4); POTASSIUM 3.8 MMOL/L (3.6-5.0)
[2018-10-17 08:18] VITALS: BP 168/90
[2018-10-17] MEDS: FUROSEMIDE 40 MG/4 ML INJ (LASIX) IVP SCH (08:22)
--- NOTE | 2018-10-17 08:22 | Diagnostic Imaging Report ---
Indication: Dyspnea on exertion. Comparison: 10/15/2018. Discussion: Single portable upright view of the chest was obtained. Nondisplaced right rib fractures are stable. Stable normal heart size. Patchy infiltrate within the right mid and lower lung is not significantly changed. Diffuse interstitial thickening is stable. Again findings are nonspecific and could be seen with infection, chronic lung disease, or pneumonia. Recommend continued radiographic followup. No pleural fluid or pneumothorax. Impression: 1. Stable chest. Dictated by: Dictated on workstation # [id number]
[2018-10-17] MEDS: LOSARTAN 100 MG (COZAAR) TABLET PO SCH (08:23)
[2018-10-17] MEDS: CLOPIDOGREL 75 MG (PLAVIX) TABLET PO SCH (08:23)
[2018-10-17] MEDS: DIGOXIN 0.125 MG (LANOXIN) TAB PO SCH (08:23)
[2018-10-17] MEDS: CARVEDILOL 12.5 MG (COREG) TABLET PO SCH ×2 (08:23→21:41)
[2018-10-17] MEDS: VITAMIN D3 5,000 UNITS (CHOLECALCIFEROL ) CAPSULE PO SCH (08:23)
[2018-10-17] MEDS: MAGNESIUM OXIDE (MAG-OX)400 MG TAB PO SCH ×2 (08:23→21:40)
[2018-10-17] MEDS ORDERED: TROSPIUM CHLORIDE 60 MG PO SCH (09:00)
[2018-10-17] MEDS ORDERED: NON-FORMULARY MEDICATION 1 EA EA (Cholecalciferol (Vitamin D3) (Vitamin D3) 5,000 UNIT) PO SCH (09:00)
[2018-10-17] MEDS ORDERED: amLODIPine 5 MG (NORVASC) TAB PO NR (12:15)
--- NOTE | 2018-10-17 12:15 | Progress Note-Hospitalist ---
Subjective HPI/CC On Admission Date Seen by Provider: Oct 17, 2018 Time Seen by Provider: 11:00 Subjective/Events-last exam Patient breathing better Less wheezing Reviewed meds and labs Able to get up and around and go to the bathroom No pain is reported Review of Systems General: Fatigue Focused Exam Lactate Level 10/15/18 20:44: Lactic Acid Level 0.95 Objective Exam Vital Signs Vital Signs Date Time Temp Pulse Resp B/P (MAP) Pulse Ox O2 Delivery O2 Flow Rate FiO2 10/17/18 12:31 97.7 70 16 165/91 (115) 97 Nasal Cannula 2.00 Capillary Refill : General Appearance: No Apparent Distress, WD/WN, Chronically ill Respiratory: Chest Non Tender, No Accessory Muscle Use, No Respiratory Distress , Crackles, Decreased Breath Sounds Cardiovascular: No Edema, No Gallop, No JVD, No Murmur, Normal Peripheral Pulses, Irregularly Irregular Neurologic/Psychiatric: Alert, Oriented x3, No Motor/Sensory Deficits, Normal Mood/Affect Results/Procedures Lab Laboratory Tests 10/17/18 05:41 Patient resulted labs reviewed. Assessment/Plan Assessment and Plan Assess & Plan/Chief Complaint Assessment: Status post respiratory insufficiency now resolved Aspiration pneumonia Acute on chronic renal failure Chronic debility Leukocytosis Anemia Plan: Continue current treatment Antibiotics are tolerated Bowels are moving Monitor closely Diagnosis/Problems Diagnosis/Problems (1) Aspiration pneumonitis Status: Acute (2) Acute on chronic respiratory failure Status: Acute Qualifiers: Respiratory failure complication: unspecified whether with hypoxia or hypercapnia Qualified Codes: J96.20 - Acute and chronic respiratory failure, unspecified whether with hypoxia or hypercapnia (3) PVD (peripheral vascular disease) Status: Chronic (4) Chronic renal insufficiency Status: Chronic Qualifiers: Chronic kidney disease stage: stage 3 (moderate) Qualified Codes: N18.3 - Chronic kidney disease, stage 3 (moderate) (5) Hypokalemia Status: Acute (6) COPD exacerbation Status: Acute (7) HTN (hypertension) Status: Chronic Qualifiers: Hypertension type: essential hypertension Qualified Codes: I10 - Essential (primary) hypertension (8) IDDM (insulin dependent diabetes mellitus) Status: Chronic (9) Atrial fibrillation Status: Chronic Qualifiers: Atrial fibrillation type: chronic Qualified Codes: I48.2 - Chronic atrial fibrillation (10) Anemia Status: Chronic Qualifiers: Anemia type: unspecified type Qualified Codes: D64.9 - Anemia, unspecified (11) Anticoagulant long-term use Status: Chronic Clinical Quality Measures DVT/VTE Risk/Contraindication: Risk Factor Score Per Nursin RFS Level Per Nursing on Admit: 4+=Very High SASCHA MORTENSEN DO Oct 17, 2018 12:15
[2018-10-17 12:31] VITALS: BP 165/91
--- NOTE | 2018-10-17 12:56 | Physical Therapy Daily Note ---
PT Daily Note-Current Subjective Pt reports no new c/o's Pain Numeric Pain Scale: 0-No Pain Appearance Pt sitting up in recliner agreeable to PT, pt in contact isolation At end of session, pt sitting up in recliner with LE's elevated, call light phone and bedside table within reach. All needs met Mental Status Patient Orientation: Person, Place, Time, Situation Attachments: Oxygen Transfers Therapy Code Descriptions/Definitions Functional [place] Measure: 0=Not Assessed/NA 4=Minimal Assistance 1=Total Assistance 5=Supervision or Setup 2=Maximal Assistance 6=Modified [place] 3=Moderate Assistance 7=Complete [place] Therapy Quality Codes: 6 Independent with activity with or without an assistive device 5 Patient requires set up or clean up by helper. Patient completes activity by themselves 4 Supervision or touching assist (CGA). [place] provide cues , steadying assist 3 The helper provides less than half the effort to complete the activity 2 The helper provides more than half the effort to complete the activity 1 Dependent. The helper does all the effort to complete an activity 7 Patient refused to complete or attempt activity 9 The patient did not perform the activity before the current illness or injury 88 Not attempted due to Medical conditions or safety concerns Transfers (B, C, W/C) (FIM): 5 Sit to/from Stand: 5 (recliner, EOB, toilet) min instruction required for safety and hand placement Weight Bearing Right Lower Extremity: Right Weight Bearing/Tolerated Left Lower Extremity: Left Weight Bearing/Tolerated Exercises Standing: Heel/toe raises, Marching, Mini squats, Sit to Stand, Weight shifts Standing Reps: 10 (fatigues easily today) Treatments safety transfer training, balance and strengthening exercise Assessment Current Status: Fair Progress PT Short Term Goals Short Term Goals Time Frame: Oct 23, 2018 Transfers (B,C,W/C) (FIM): 6 Gait (FIM): 6 Distance (FIM): 3=150 ft Gait Distance Comment: 300' Gait Level of Assist: 6 Gait Assistive Device: FWW PT Plan Problem List Problem List: Activity Tolerance, Functional Strength, Safety, Balance, Gait, Transfer Treatment/Plan Treatment Plan: Continue Plan of Care Treatment Plan: Bed Mobility, Education, Functional Activity Amanda, Functional Strength, Gait, Safety, Therapeutic Exercise, Transfers Treatment Duration: Oct 23, 2018 Frequency: 6 times per week Estimated Hrs Per Day: .25 hour per day Patient and/or Family Agrees t: Yes Safety Risks/Education Patient Education: Gait Training, Transfer Techniques Teaching Recipient: Patient Teaching Methods: Discussion Response to Teaching: Verbalize Understanding Time/GCodes Time In: 1115 Time Out: 1127 Total Billed Treatment Time: 12 Total Billed Treatment 1 visit FA x12 min TONNY MARTINEZ FACILITIES SPECIALIST Oct 17, 2018 12:56
[2018-10-17 15:32] VITALS: BP 156/75
--- NOTE | 2018-10-17 16:42 | Wound Care Assessment ---
Wound Care Assessment Date Seen by Provider: Oct 17, 2018 Time Seen by Provider: 16:38 Chief Complaint L heel ulcer. HPI The patient is an 82 year old male with a diabetic foot ulcer of the L heel, marginal arterial perfusion and multiple comorbidities. He is [facility] as an [facility]. When visited today, he was sleeping comfortably and was not disturbed. Silver alginate dressings are ordered here in the hospital. Will follow while in hospital. Past Medical History: Admits Diabetes Type II, Admits Heart Disease, Admits Peripheral Artery Disease Recreational Drug Use: No Alcohol Use: Denies Use Review of Systems Pulmonary: Dyspnea Gastrointestinal: Vomiting Exam Vital Signs Date Time Temp Pulse Resp B/P (MAP) Pulse Ox O2 Delivery O2 Flow Rate FiO2 10/17/18 15:32 97.3 54 20 156/75 (102) 100 Nasal Cannula 4.00 Capillary Refill : Respiratory: no respiratory distress Skin: normal color, warm/dry Results Laboratory Tests 10/16/18 16:45: Glucometer 110 10/16/18 21:16: Glucometer 208H 10/17/18 05:06: Glucometer 114H 10/17/18 05:41: White Blood Count 11.9H, Red Blood Count 3.26L, Hemoglobin 10.0L, Hematocrit 29L , Mean Corpuscular Volume 89, Mean Corpuscular Hemoglobin 31, Mean Corpuscular Hemoglobin Concent 35, Red Cell Distribution Width 14.3, Platelet Count 141, Mean Platelet Volume 11.1H, Neutrophils (%) (Auto) 70, Lymphocytes (%) (Auto) 13 , Monocytes (%) (Auto) 15H, Eosinophils (%) (Auto) 2, Basophils (%) (Auto) 0, Neutrophils # (Auto) 8.3H, Lymphocytes # (Auto) 1.6, Monocytes # (Auto) 1.8H, Eosinophils # (Auto) 0.2, Basophils # (Auto) 0.0, Prothrombin Time 22.0H, INR Comment 1.9H, Sodium Level 135, Potassium Level 3.8, Chloride Level 105, Carbon Dioxide Level 23, Anion Gap 7, Blood Urea Nitrogen 29H, Creatinine 1.91H, Estimat Glomerular Filtration Rate 34, BUN/Creatinine Ratio 15, Glucose Level 108H, Calcium Level 8.5, Magnesium Level 1.7L 10/17/18 11:24: Glucometer 129H 10/17/18 15:32: Glucometer 223H Assessment/Plan/Dx 1. Diabetic foot ulcer, L heel, followed in clinic. Plan: Will begin silver alginate dressings. JONATHAN CROUCH MD Oct 17, 2018 16:42
[2018-10-17 21:39] VITALS: BP 164/74
[2018-10-17] MEDS: warFARin 5 MG (COUMADIN) TAB PO SCH (21:40)
[2018-10-17] MEDS: ATORVASTATIN 10 MG (LIPITOR) TABLET PO SCH (21:41)
[2018-10-17] MEDS: ACETAMINOPHEN 500 MG TAB (TYLENOL) PO PRN (21:41)
[2018-10-17] MEDS: ASPIRIN E.C. 81 MG (ECOTRIN) TAB PO SCH (21:41)
[2018-10-17] MEDS: inSUlin DETERMIR 1 UNIT/0.01 ML (LEVEMIR) CHARGE PER UNIT SQ SCH (21:58)
[2018-10-18] VITALS: BP 158/68
[2018-10-18] MEDS: RT-ALBUTEROL/IPRATROPIUM 3 ML (DUONEB) VIAL INH SCH ×4 (03:17→20:49)
[2018-10-18 03:54] VITALS: BP 138/65
[2018-10-18] MEDS: AMPICILLIN/SULBACTAM INJECTION 1.5 GM in NS (IVPB) 100 ML IV SCH ×3 (05:15→21:58)
[2018-10-18] MEDS: KCL 20 MEQ TAB (K-DUR) PO SCH ×2 (05:18→16:42)
[2018-10-18] MEDS: inSUlin ASPART (NovoLOG) 1 UNIT/0.01 ML (CHARGE PER UNIT) SC SCH ×4 (05:18→22:25)
[2018-10-18 06:17] LABS: BASOPHILS % (AUTO) 0 % (0-10); EOSINOPHILS # (AUTO) 0.2 10^3/uL (0.0-0.3); EOSINOPHILS % (AUTO) 2 % (0-10); HEMATOCRIT 28 % (40-54); HEMOGLOBIN 9.5 G/DL (13.3-17.7); LYMPHOCYTES # (AUTO) 1.2 X 10^3 (1.0-4.0); LYMPHOCYTES % (AUTO) 13 % (12-44); MEAN CORPUSCULAR HEMOGLOBIN 30 PG (25-34); MEAN CORPUSCULAR HGB CONC 34 G/DL (32-36); MEAN CORPUSCULAR VOLUME 89 FL (80-99); MONOCYTES # (AUTO) 1.1 X 10^3 (0.0-1.0); MONOCYTES % (AUTO) 13 % (0-12); NEUTROPHILS # (AUTO) 6.1 X 10^3 (1.8-7.8); NEUTROPHILS % (AUTO) 71 % (42-75); PLATELET COUNT 132 10^3/uL (130-400); RED BLOOD COUNT 3.12 10^6/uL (4.35-5.85); RED CELL DISTRIBUTION WIDTH 14.3 % (10.0-14.5); WHITE BLOOD COUNT 8.6 10^3/uL (4.3-11.0)
[2018-10-18 06:32] LABS: INR 2.3 (0.8-1.4); PROTHROMBIN TIME PATIENT 25.2 SEC (12.2-14.7)
[2018-10-18 06:39] LABS: ALBUMIN 2.1 GM/DL (3.2-4.5); BILIRUBIN,TOTAL 0.5 MG/DL (0.1-1.0); CALCIUM 8.3 MG/DL (8.5-10.1); CREATININE SERUM 1.86 MG/DL (0.60-1.30); POTASSIUM 3.9 MMOL/L (3.6-5.0); TOTAL PROTEIN 4.8 GM/DL (6.4-8.2)
[2018-10-18 08:00] VITALS: BP 159/75
[2018-10-18] MEDS: MAGNESIUM OXIDE (MAG-OX)400 MG TAB PO SCH ×2 (08:05→21:56)
[2018-10-18] MEDS: DIGOXIN 0.125 MG (LANOXIN) TAB PO SCH (08:05)
[2018-10-18] MEDS: amLODIPine 5 MG (NORVASC) TAB PO SCH (08:05)
[2018-10-18] MEDS: LOSARTAN 100 MG (COZAAR) TABLET PO SCH (08:05)
[2018-10-18] MEDS: CLOPIDOGREL 75 MG (PLAVIX) TABLET PO SCH (08:05)
[2018-10-18] MEDS: VITAMIN D3 5,000 UNITS (CHOLECALCIFEROL ) CAPSULE PO SCH (08:05)
[2018-10-18] MEDS: FUROSEMIDE 40 MG/4 ML INJ (LASIX) IVP SCH (08:06)
[2018-10-18] MEDS: CARVEDILOL 12.5 MG (COREG) TABLET PO SCH ×2 (08:06→21:56)
[2018-10-18 09:20] VITALS: BP 159/75
--- NOTE | 2018-10-18 12:26 | Progress Note-Hospitalist ---
Subjective HPI/CC On Admission Date Seen by Provider: Oct 18, 2018 Time Seen by Provider: 11:00 Subjective/Events-last exam Patient doing well Bowels are kind of slow Denies any pain except neuropathy Less short of breath Creatinine at baseline 1.8 White count is normal Review of Systems General: Fatigue Musculoskeletal: foot pain Focused Exam Lactate Level 10/15/18 20:44: Lactic Acid Level 0.95 Objective Exam Vital Signs Vital Signs Date Time Temp Pulse Resp B/P (MAP) Pulse Ox O2 Delivery O2 Flow Rate FiO2 10/18/18 09:20 65 99 36 10/18/18 09:20 Nasal Cannula 4.00 10/18/18 08:00 97.9 17 159/75 (103) Capillary Refill : General Appearance: No Apparent Distress, WD/WN, Chronically ill Respiratory: Chest Non Tender, Lungs Clear, Normal Breath Sounds, No Accessory Muscle Use, No Respiratory Distress Cardiovascular: No Edema, No Gallop, No JVD, No Murmur, Normal Peripheral Pulses, Irregularly Irregular Neurologic/Psychiatric: Alert, Oriented x3, No Motor/Sensory Deficits, Normal Mood/Affect Results/Procedures Lab Laboratory Tests 10/18/18 05:33 Patient resulted labs reviewed. Assessment/Plan Assessment and Plan Assess & Plan/Chief Complaint Assessment: Status post respiratory insufficiency now resolved Aspiration pneumonia Acute on chronic renal failure Chronic debility Leukocytosis resolved Anemia Anticoagulation and INR 2.3 today Constipation ordering meds Plan: Continue current treatment Antibiotics are tolerated Bowels need meds Monitor closely Diagnosis/Problems Diagnosis/Problems (1) Aspiration pneumonitis Status: Acute (2) Acute on chronic respiratory failure Status: Acute Qualifiers: Respiratory failure complication: unspecified whether with hypoxia or hypercapnia Qualified Codes: J96.20 - Acute and chronic respiratory failure, unspecified whether with hypoxia or hypercapnia (3) PVD (peripheral vascular disease) Status: Chronic (4) Chronic renal insufficiency Status: Chronic Qualifiers: Chronic kidney disease stage: stage 3 (moderate) Qualified Codes: N18.3 - Chronic kidney disease, stage 3 (moderate) (5) Hypokalemia Status: Acute (6) COPD exacerbation Status: Acute (7) HTN (hypertension) Status: Chronic Qualifiers: Hypertension type: essential hypertension Qualified Codes: I10 - Essential (primary) hypertension (8) IDDM (insulin dependent diabetes mellitus) Status: Chronic (9) Atrial fibrillation Status: Chronic Qualifiers: Atrial fibrillation type: chronic Qualified Codes: I48.2 - Chronic atrial fibrillation (10) Anemia Status: Chronic Qualifiers: Anemia type: unspecified type Qualified Codes: D64.9 - Anemia, unspecified (11) Anticoagulant long-term use Status: Chronic Clinical Quality Measures DVT/VTE Risk/Contraindication: Risk Factor Score Per Nursin RFS Level Per Nursing on Admit: 4+=Very High SASCHA MORTENSEN DO Oct 18, 2018 12:26
[2018-10-18] MEDS ORDERED: LACTULOSE SYRUP 10GM/15ML (ENULOSE) 30ML UDC PO NR (12:30)
--- NOTE | 2018-10-18 13:19 | Wound Care Assessment ---
Wound Care Assessment Date Seen by Provider: Oct 18, 2018 Time Seen by Provider: 13:12 Chief Complaint L heel ulcer. HPI The patient is an 82 year old male with a diabetic foot ulcer of the L heel, marginal arterial perfusion and multiple comorbidities. He is followed as an out-patient in the [facility]. The wound is clear with crust covering wound. It is not debrided. Silver alginate dressings are continued Will follow while in hospital. Past Medical History: Admits Diabetes Type II, Admits Heart Disease, Admits Peripheral Artery Disease Chronic renal failure. Recreational Drug Use: No Alcohol Use: Denies Use Review of Systems Pulmonary: Dyspnea Neurological: Confusion Exam Vital Signs Date Time Temp Pulse Resp B/P (MAP) Pulse Ox O2 Delivery O2 Flow Rate FiO2 10/18/18 09:20 65 99 36 10/18/18 09:20 Nasal Cannula 4.00 10/18/18 08:00 97.9 17 159/75 (103) Capillary Refill : HEENT: normal ENT inspection Respiratory: no respiratory distress Skin: other (L lateral heel -- 1.4 x 1.9 x 0.2 cm, base 100% slough, mod. s.s. drainage.) Results Laboratory Tests 10/17/18 15:32: Glucometer 223H 10/17/18 21:42: Glucometer 133H 10/18/18 05:17: Glucometer 119H 10/18/18 05:33: White Blood Count 8.6, Red Blood Count 3.12L, Hemoglobin 9.5L, Hematocrit 28L, Mean Corpuscular Volume 89, Mean Corpuscular Hemoglobin 30, Mean Corpuscular Hemoglobin Concent 34, Red Cell Distribution Width 14.3, Platelet Count 132, Mean Platelet Volume 11.0H, Neutrophils (%) (Auto) 71, Lymphocytes (%) (Auto) 13 , Monocytes (%) (Auto) 13H, Eosinophils (%) (Auto) 2, Basophils (%) (Auto) 0, Neutrophils # (Auto) 6.1, Lymphocytes # (Auto) 1.2, Monocytes # (Auto) 1.1H, Eosinophils # (Auto) 0.2, Basophils # (Auto) 0.0, Prothrombin Time 25.2H, INR Comment 2.3H, Sodium Level 136, Potassium Level 3.9, Chloride Level 106, Carbon Dioxide Level 24, Anion Gap 6, Blood Urea Nitrogen 30H, Creatinine 1.86H, Estimat Glomerular Filtration Rate 35, BUN/Creatinine Ratio 16, Glucose Level 102, Calcium Level 8.3L, Corrected Calcium 9.8, Total Bilirubin 0.5, Aspartate Amino Transf (AST/SGOT) 14, Alanine Aminotransferase (ALT/SGPT) 10, Alkaline Phosphatase 58, Total Protein 4.8L, Albumin 2.1L 10/18/18 11:09: Glucometer 167H Assessment/Plan/Dx 1. Diabetic foot ulcer, L lateral heel, [place] Grade 2. 2. Peripheral arterial disease, s/p intervention. 3. Chronic renal failure. Plan: silver alginate dressings are ordered due to availability in hospital. Will follow while here. JONATHAN CROUCH MD Oct 18, 2018 13:18
[2018-10-18 16:00] VITALS: BP 126/75
[2018-10-18 21:53] VITALS: BP 150/62
[2018-10-18] MEDS: LACTULOSE SYRUP 10GM/15ML (ENULOSE) 30ML UDC PO SCH (21:55)
[2018-10-18] MEDS: ASPIRIN E.C. 81 MG (ECOTRIN) TAB PO SCH (21:56)
[2018-10-18] MEDS: ATORVASTATIN 10 MG (LIPITOR) TABLET PO SCH (21:56)
[2018-10-18] MEDS: warFARin 5 MG (COUMADIN) TAB PO SCH (21:56)
[2018-10-18] MEDS: ACETAMINOPHEN 500 MG TAB (TYLENOL) PO PRN (21:57)
[2018-10-18] MEDS: inSUlin DETERMIR 1 UNIT/0.01 ML (LEVEMIR) CHARGE PER UNIT SQ SCH (22:25)
[2018-10-19 00:23] VITALS: BP 171/69
[2018-10-19] MEDS: RT-ALBUTEROL/IPRATROPIUM 3 ML (DUONEB) VIAL INH SCH ×2 (03:26→10:25)
[2018-10-19] MEDS: inSUlin ASPART (NovoLOG) 1 UNIT/0.01 ML (CHARGE PER UNIT) SC SCH ×4 (05:52→22:37)
[2018-10-19] MEDS: AMPICILLIN/SULBACTAM INJECTION 1.5 GM in NS (IVPB) 100 ML IV SCH ×3 (06:04→21:05)
[2018-10-19] MEDS: KCL 20 MEQ TAB (K-DUR) PO SCH ×2 (06:04→17:38)
[2018-10-19 06:06] LABS: BASOPHILS % (AUTO) 0 % (0-10); EOSINOPHILS # (AUTO) 0.2 10^3/uL (0.0-0.3); EOSINOPHILS % (AUTO) 2 % (0-10); HEMATOCRIT 27 % (40-54); HEMOGLOBIN 9.4 G/DL (13.3-17.7); LYMPHOCYTES # (AUTO) 1.3 X 10^3 (1.0-4.0); LYMPHOCYTES % (AUTO) 16 % (12-44); MEAN CORPUSCULAR HEMOGLOBIN 30 PG (25-34); MEAN CORPUSCULAR HGB CONC 34 G/DL (32-36); MEAN CORPUSCULAR VOLUME 88 FL (80-99); MEAN PLATELET VOLUME 10.9 FL (7.4-10.4); MONOCYTES # (AUTO) 1.1 X 10^3 (0.0-1.0); MONOCYTES % (AUTO) 14 % (0-12); NEUTROPHILS # (AUTO) 5.6 X 10^3 (1.8-7.8); NEUTROPHILS % (AUTO) 68 % (42-75); PLATELET COUNT 141 10^3/uL (130-400); RED BLOOD COUNT 3.12 10^6/uL (4.35-5.85); RED CELL DISTRIBUTION WIDTH 13.6 % (10.0-14.5); WHITE BLOOD COUNT 8.2 10^3/uL (4.3-11.0)
[2018-10-19 06:22] LABS: INR 2.4 (0.8-1.4); PROTHROMBIN TIME PATIENT 26.3 SEC (12.2-14.7)
[2018-10-19 06:27] LABS: ALBUMIN 2.1 GM/DL (3.2-4.5); BILIRUBIN,TOTAL 0.4 MG/DL (0.1-1.0); CALCIUM 8.3 MG/DL (8.5-10.1); CREATININE SERUM 1.92 MG/DL (0.60-1.30); POTASSIUM 3.9 MMOL/L (3.6-5.0); TOTAL PROTEIN 5.1 GM/DL (6.4-8.2)
[2018-10-19 07:42] VITALS: BP 167/76
--- NOTE | 2018-10-19 08:01 | Progress Note (SOAP) ---
Subjective Subjective Date Seen by Provider: Oct 19, 2018 Time Seen by Provider: 07:55 82 yo M reports he is doing better. He does get up and walk to the bathroom with his walker without notifying the nurses. PO intake is okay. Still has not had a bowel movement and would like to have one. Denies chest pain. Breathing is much better. Cr is 1.92 this AM. His baseline is closer to 1.6- Review of Systems General: Fatigue HEENT: No Head Aches, No Visual Changes Pulmonary: Dyspnea (improved) Cardiovascular: No: Chest Pain, Palpitations Gastrointestinal: No: Vomiting Genitourinary: No Dysuria, No Frequency Musculoskeletal: foot pain Neurological: Weakness, Confusion Objective Exam Vital Signs Vital Signs Date Time Temp Pulse Resp B/P (MAP) Pulse Ox O2 Delivery O2 Flow Rate FiO2 10/19/18 07:42 97.7 69 18 167/76 (106) 97 Nasal Cannula 4.00 10/19/18 03:25 98 Nasal Cannula 4.00 10/19/18 00:23 98.4 65 18 171/69 (103) 97 Nasal Cannula 2.00 10/18/18 21:53 82 20 150/62 (91) 97 Nasal Cannula 4.00 10/18/18 20:50 98 Nasal Cannula 4.00 10/18/18 20:00 Nasal Cannula 4.00 10/18/18 16:00 99.5 80 18 126/75 (92) 98 Nasal Cannula 2.00 10/18/18 15:29 98 Nasal Cannula 4.00 10/18/18 09:20 65 99 36 10/18/18 09:20 99 Nasal Cannula 4.00 10/18/18 08:12 92 Nasal Cannula 4.00 10/18/18 08:00 97.9 73 17 159/75 (103) 96 Nasal Cannula 2.00 I & O 10/19/18 07:00 Intake Total 2000 ml Balance 2000 ml General Appearance: No Apparent Distress, WD/WN, Chronically ill HEENT: PERRL/EOMI Neck: Non Tender, Supple Respiratory: Chest Non Tender, Lungs Clear, Normal Breath Sounds, No Accessory Muscle Use, No Respiratory Distress Cardiovascular: No Gallop, Other (irrregular) Gastrointestinal: Normal Bowel Sounds, Non Tender, Soft Rectal: Deferred Back: Normal Inspection, No CVA Tenderness Extremity: Non Tender, No Calf Tenderness, Pedal Edema (up to knees- stasis dermatitis.) Neurologic/Psychiatric: Alert, Oriented x3, No Motor/Sensory Deficits, Normal Mood/Affect Skin: Normal Color, Warm/Dry Lymphatic: No Adenopathy Results Lab Laboratory Tests 10/18/18 11:09: Glucometer 167H 10/18/18 16:23: Glucometer 227H 10/18/18 21:20: Glucometer 234H 10/19/18 05:30: Glucometer 134H 10/19/18 05:48: White Blood Count 8.2, Red Blood Count 3.12L, Hemoglobin 9.4L, Hematocrit 27L, Mean Corpuscular Volume 88, Mean Corpuscular Hemoglobin 30, Mean Corpuscular Hemoglobin Concent 34, Red Cell Distribution Width 13.6, Platelet Count 141, Mean Platelet Volume 10.9H, Neutrophils (%) (Auto) 68, Lymphocytes (%) (Auto) 16 , Monocytes (%) (Auto) 14H, Eosinophils (%) (Auto) 2, Basophils (%) (Auto) 0, Neutrophils # (Auto) 5.6, Lymphocytes # (Auto) 1.3, Monocytes # (Auto) 1.1H, Eosinophils # (Auto) 0.2, Basophils # (Auto) 0.0, Prothrombin Time 26.3H, INR Comment 2.4H, Sodium Level 133L, Potassium Level 3.9, Chloride Level 105, Carbon Dioxide Level 23, Anion Gap 5, Blood Urea Nitrogen 34H, Creatinine 1.92H , Estimat Glomerular Filtration Rate 34, BUN/Creatinine Ratio 18, Glucose Level 128H, Calcium Level 8.3L, Corrected Calcium 9.8, Total Bilirubin 0.4, Aspartate Amino Transf (AST/SGOT) 13, Alanine Aminotransferase (ALT/SGPT) 11, Alkaline Phosphatase 62, Total Protein 5.1L, Albumin 2.1L Assessment/Plan Assessment/Plan Admission Dx acute on chronic respiratory failure acute on chronic kidney failure aspiration pneumonitis pneumonia Assessment and Plan J96.21 acute on chronic respiratory failure- monitor oxygen requirements- home usage ranges from room air to 4L. acute on chronic kidney failure- fluid hydration- baseline around 1.6- aspiration pneumonitis- respiratory therapy consult pneumonia- covering with unasyn insulin dependent diabetes mellitus II- last hga1c 10/15/18- 6.2 holding his home 70/30 dosage; placed on 10 units levemir, SSA. Atriall fibrillation- on warfarin- rechecking INR Chronic diastolic heart failure- follows with Dr. Niño hypokalemia- replacing Constipation- will try lactulose again. DVT ppx- on warfarin. Dispo: -stopped his lasix today - will check his Cr again tomorrow - plan to discharge to home 10/20/18 with resumption of home health nursing services. He would also benefit from PT then when he graduates from that; he should return to cardiac rehab at [facility]. Case Management consulted- Problems: (1) Aspiration pneumonitis (2) Acute on chronic respiratory failure Qualifiers: Qualified Codes: J96.21 - Acute and chronic respiratory failure with hypoxia (3) PVD (peripheral vascular disease) (4) Chronic renal insufficiency Qualifiers: Qualified Codes: N18.3 - Chronic kidney disease, stage 3 (moderate) (5) Hypokalemia (6) COPD exacerbation (7) HTN (hypertension) Qualifiers: Qualified Codes: I10 - Essential (primary) hypertension (8) IDDM (insulin dependent diabetes mellitus) (9) Atrial fibrillation Qualifiers: Qualified Codes: I48.2 - Chronic atrial fibrillation (10) Anemia Qualifiers: Qualified Codes: D64.9 - Anemia, unspecified (11) Anticoagulant long-term use Admission Dx acute on chronic respiratory failure acute on chronic kidney failure aspiration pneumonitis pneumonia Clinical Quality Measures Admission Status Admission Dx acute on chronic respiratory failure acute on chronic kidney failure aspiration pneumonitis pneumonia DVT/VTE Risk/Contraindication: Risk Factor Score Per Nursin RFS Level Per Nursing on Admit: 4+=Very High RUBEN SANCHEZ MD Oct 19, 2018 08:01
[2018-10-19] MEDS ORDERED: DOCUSATE SODIUM 100 MG (COLACE) CAP PO NR (08:15)
[2018-10-19] MEDS: MAGNESIUM OXIDE (MAG-OX)400 MG TAB PO SCH ×2 (08:29→21:00)
[2018-10-19] MEDS: DIGOXIN 0.125 MG (LANOXIN) TAB PO SCH (08:29)
[2018-10-19] MEDS: CLOPIDOGREL 75 MG (PLAVIX) TABLET PO SCH (08:29)
[2018-10-19] MEDS: amLODIPine 5 MG (NORVASC) TAB PO SCH (08:29)
[2018-10-19] MEDS: VITAMIN D3 5,000 UNITS (CHOLECALCIFEROL ) CAPSULE PO SCH (08:29)
[2018-10-19] MEDS: LOSARTAN 100 MG (COZAAR) TABLET PO SCH (08:30)
[2018-10-19] MEDS: CARVEDILOL 12.5 MG (COREG) TABLET PO SCH ×2 (08:30→21:00)
[2018-10-19] MEDS: LACTULOSE SYRUP 10GM/15ML (ENULOSE) 30ML UDC PO SCH ×2 (08:31→21:00)
--- NOTE | 2018-10-19 10:09 | Physical Therapy Daily Note ---
PT Daily Note-Current Subjective Pt up in bed and talking to friend in room. Pt agrees to PT. Reports that he may be dismissed tomorrow. Pain Numeric Pain Scale: 0-No Pain Location: No Pain Reported Mental Status Patient Orientation: Person, Place, Normal For Age Attachments: Oxygen Transfers Therapy Code Descriptions/Definitions Functional [place] Measure: 0=Not Assessed/NA 4=Minimal Assistance 1=Total Assistance 5=Supervision or Setup 2=Maximal Assistance 6=Modified [place] 3=Moderate Assistance 7=Complete [place] Therapy Quality Codes: 6 Independent with activity with or without an assistive device 5 Patient requires set up or clean up by helper. Patient completes activity by themselves 4 Supervision or touching assist (CGA). [place] provide cues , steadying assist 3 The helper provides less than half the effort to complete the activity 2 The helper provides more than half the effort to complete the activity 1 Dependent. The helper does all the effort to complete an activity 7 Patient refused to complete or attempt activity 9 The patient did not perform the activity before the current illness or injury 88 Not attempted due to Medical conditions or safety concerns Transfers (B, C, W/C) (FIM): 5 Supine to/from Sit: 5 Sit to/from Stand: 5 Weight Bearing Right Lower Extremity: Right Weight Bearing/Tolerated Left Lower Extremity: Left Weight Bearing/Tolerated Gait Training Gait (FIM): 4 Distance (FIM): 3=150 ft Distance: 300' x 2 Gait Level of Assist: 4 Gait Persons Needed: 1 Gait Assistive Device: FWW Exercises Seated Therapy Exercises: Ankle pumps, Long arc quads, Hip flexion Seated Reps: 10 Assessment Current Status: Good Progress Pt was able to perform bed mobility with SBA. Pt sit<>stand with CGA to FWW. Pt able to amb 300' with FWW and CGA with multiple standing recovery breaks and PT instructed to perform deep breathing during recovery. Pt returned to room and was able to perform LE seated ex. Pt is in recliner with all needs met. PT Short Term Goals Short Term Goals Time Frame: Oct 23, 2018 Transfers (B,C,W/C) (FIM): 6 Gait (FIM): 6 Distance (FIM): 3=150 ft Gait Distance Comment: 300' Gait Level of Assist: 6 Gait Assistive Device: FWW PT Plan Problem List Problem List: Activity Tolerance, Functional Strength, Safety, Balance, Gait Treatment/Plan Treatment Plan: Continue Plan of Care Treatment Plan: Bed Mobility, Education, Functional Activity Amanda, Functional Strength, Gait, Safety, Therapeutic Exercise, Transfers Treatment Duration: Oct 23, 2018 Frequency: 6 times per week Estimated Hrs Per Day: .25 hour per day Patient and/or Family Agrees t: Yes Time/GCodes Time In: 924 Time Out: 941 Total Billed Treatment Time: 17 Total Billed Treatment 1 visit FA 17 min NIKHIL LEBLANC PT Oct 19, 2018 10:09
--- NOTE | 2018-10-19 11:50 | NUR ---
PT REPORT GIVEN TO PRECIOUS COSME.
[2018-10-19 16:10] VITALS: BP 166/84
--- NOTE | 2018-10-19 18:12 | Wound Care Assessment ---
Wound Care Assessment Date Seen by Provider: Oct 19, 2018 Time Seen by Provider: 18:05 Chief Complaint L heel ulcer. HPI The patient is an 82 year old male with a diabetic foot ulcer of the L heel which is stable with current dressings. He may continue the same dressings and will be followed as an [facility]-patient [facility]. Message from son to check back of L leg. I see no open wound. there is present dermatosclerosis and chronic venous changes. discussed findings with his nurse so she can pass them on. Silver alginate dressings are continued. Will follow up as out- patient. Past Medical History: Admits Diabetes Type II, Admits Heart Disease, Admits Peripheral Artery Disease Recreational Drug Use: No Alcohol Use: Denies Use Review of Systems Pulmonary: No Dyspnea Cardiovascular: No: Chest Pain Exam Vital Signs Date Time Temp Pulse Resp B/P (MAP) Pulse Ox O2 Delivery O2 Flow Rate FiO2 10/19/18 16:10 98.6 66 20 166/84 (111) 100 Nasal Cannula 4.00 10/18/18 09:20 36 Capillary Refill : General Appearance: no apparent distress Extremities: other (Brawny edema with volume loss posterior L calf.) Results Laboratory Tests 10/18/18 21:20: Glucometer 234H 10/19/18 05:30: Glucometer 134H 10/19/18 05:48: White Blood Count 8.2, Red Blood Count 3.12L, Hemoglobin 9.4L, Hematocrit 27L, Mean Corpuscular Volume 88, Mean Corpuscular Hemoglobin 30, Mean Corpuscular Hemoglobin Concent 34, Red Cell Distribution Width 13.6, Platelet Count 141, Mean Platelet Volume 10.9H, Neutrophils (%) (Auto) 68, Lymphocytes (%) (Auto) 16 , Monocytes (%) (Auto) 14H, Eosinophils (%) (Auto) 2, Basophils (%) (Auto) 0, Neutrophils # (Auto) 5.6, Lymphocytes # (Auto) 1.3, Monocytes # (Auto) 1.1H, Eosinophils # (Auto) 0.2, Basophils # (Auto) 0.0, Prothrombin Time 26.3H, INR Comment 2.4H, Sodium Level 133L, Potassium Level 3.9, Chloride Level 105, Carbon Dioxide Level 23, Anion Gap 5, Blood Urea Nitrogen 34H, Creatinine 1.92H , Estimat Glomerular Filtration Rate 34, BUN/Creatinine Ratio 18, Glucose Level 128H, Calcium Level 8.3L, Corrected Calcium 9.8, Total Bilirubin 0.4, Aspartate Amino Transf (AST/SGOT) 13, Alanine Aminotransferase (ALT/SGPT) 11, Alkaline Phosphatase 62, Total Protein 5.1L, Albumin 2.1L 10/19/18 11:23: Glucometer 184H 10/19/18 16:10: Glucometer 160H Assessment/Plan/Dx 1. Diabetic foot ulcer, L heel, followed in clinic. 2. Chronic venous insufficiency, L calf. Plan: Continue silver alginate dressings. I will follow-up as out-patient. JONATHAN CROUCH MD Oct 19, 2018 18:12
[2018-10-19] MEDS: ASPIRIN E.C. 81 MG (ECOTRIN) TAB PO SCH (21:00)
[2018-10-19] MEDS: ATORVASTATIN 10 MG (LIPITOR) TABLET PO SCH (21:00)
[2018-10-19] MEDS: warFARin 5 MG (COUMADIN) TAB PO SCH (21:00)
[2018-10-19] MEDS: inSUlin DETERMIR 1 UNIT/0.01 ML (LEVEMIR) CHARGE PER UNIT SQ SCH (22:36)
[2018-10-19 23:57] VITALS: BP 163/77
[2018-10-20] MEDS: RT-ALBUTEROL/IPRATROPIUM 3 ML (DUONEB) VIAL INH SCH ×4 (00:05→15:24)
[2018-10-20] MEDS: KCL 20 MEQ TAB (K-DUR) PO SCH (06:10)
[2018-10-20] MEDS: AMPICILLIN/SULBACTAM INJECTION 1.5 GM in NS (IVPB) 100 ML IV SCH ×2 (06:10→14:57)
[2018-10-20 06:16] LABS: BASOPHILS % (AUTO) 0 % (0-10); EOSINOPHILS # (AUTO) 0.2 10^3/uL (0.0-0.3); EOSINOPHILS % (AUTO) 2 % (0-10); HEMATOCRIT 28 % (40-54); HEMOGLOBIN 9.9 G/DL (13.3-17.7); LYMPHOCYTES % (AUTO) 11 % (12-44); MEAN CORPUSCULAR HEMOGLOBIN 31 PG (25-34); MEAN CORPUSCULAR HGB CONC 36 G/DL (32-36); MEAN CORPUSCULAR VOLUME 88 FL (80-99); MEAN PLATELET VOLUME 10.7 FL (7.4-10.4); MONOCYTES # (AUTO) 1.1 X 10^3 (0.0-1.0); MONOCYTES % (AUTO) 12 % (0-12); NEUTROPHILS # (AUTO) 6.5 X 10^3 (1.8-7.8); NEUTROPHILS % (AUTO) 74 % (42-75); PLATELET COUNT 154 10^3/uL (130-400); RED BLOOD COUNT 3.17 10^6/uL (4.35-5.85); RED CELL DISTRIBUTION WIDTH 13.8 % (10.0-14.5); WHITE BLOOD COUNT 8.7 10^3/uL (4.3-11.0)
[2018-10-20 06:45] LABS: ALBUMIN 2.3 GM/DL (3.2-4.5); BILIRUBIN,TOTAL 0.5 MG/DL (0.1-1.0); CALCIUM 8.5 MG/DL (8.5-10.1); CREATININE SERUM 1.93 MG/DL (0.60-1.30); POTASSIUM 4.1 MMOL/L (3.6-5.0); TOTAL PROTEIN 4.8 GM/DL (6.4-8.2)
[2018-10-20] MEDS: inSUlin ASPART (NovoLOG) 1 UNIT/0.01 ML (CHARGE PER UNIT) SC SCH ×2 (06:46→11:45)
[2018-10-20 08:34] VITALS: BP 144/66
[2018-10-20] MEDS: VITAMIN D3 5,000 UNITS (CHOLECALCIFEROL ) CAPSULE PO SCH (08:50)
[2018-10-20] MEDS: LOSARTAN 100 MG (COZAAR) TABLET PO SCH (08:50)
[2018-10-20] MEDS: MAGNESIUM OXIDE (MAG-OX)400 MG TAB PO SCH (08:50)
[2018-10-20] MEDS: DIGOXIN 0.125 MG (LANOXIN) TAB PO SCH (08:50)
[2018-10-20] MEDS: CLOPIDOGREL 75 MG (PLAVIX) TABLET PO SCH (08:50)
[2018-10-20] MEDS: LACTULOSE SYRUP 10GM/15ML (ENULOSE) 30ML UDC PO SCH (08:53)
[2018-10-20] MEDS: amLODIPine 5 MG (NORVASC) TAB PO SCH (08:53)
[2018-10-20] MEDS: CARVEDILOL 12.5 MG (COREG) TABLET PO SCH (08:53)
--- NOTE | 2018-10-20 10:46 | Physical Therapy Daily Note ---
PT Daily Note-Current Subjective Pt had just completed a shower and was worn out. PT gave pt the option to come back later but pt wanted to get up and walk. Pt agreed to PT. Pt reports that he will be leaving today. Pain Numeric Pain Scale: 0-No Pain Location: No Pain Reported Mental Status Patient Orientation: Person, Normal For Age Attachments: Oxygen (4L) Transfers Therapy Code Descriptions/Definitions Functional [place] Measure: 0=Not Assessed/NA 4=Minimal Assistance 1=Total Assistance 5=Supervision or Setup 2=Maximal Assistance 6=Modified [place] 3=Moderate Assistance 7=Complete [place] Therapy Quality Codes: 6 Independent with activity with or without an assistive device 5 Patient requires set up or clean up by helper. Patient completes activity by themselves 4 Supervision or touching assist (CGA). [place] provide cues , steadying assist 3 The helper provides less than half the effort to complete the activity 2 The helper provides more than half the effort to complete the activity 1 Dependent. The helper does all the effort to complete an activity 7 Patient refused to complete or attempt activity 9 The patient did not perform the activity before the current illness or injury 88 Not attempted due to Medical conditions or safety concerns Transfers (B, C, W/C) (FIM): 5 Sit to/from Stand: 5 Weight Bearing Right Lower Extremity: Right Weight Bearing/Tolerated Left Lower Extremity: Left Weight Bearing/Tolerated Gait Training Gait (FIM): 6 Distance (FIM): 3=150 ft Distance: 150' Gait Level of Assist: 6 Gait Persons Needed: 1 Gait Assistive Device: FWW Assessment Current Status: Good Progress Pt was able to sit<>stand from recliner to FWW with SBA. Pt amb 150' with FWW before requesting to return to room due to SOB. Pt amb with SBA and 4L O2. Pt returned to recliner and has all needs met. PT Short Term Goals Short Term Goals Time Frame: Oct 23, 2018 Transfers (B,C,W/C) (FIM): 6 Gait (FIM): 6 Distance (FIM): 3=150 ft Gait Distance Comment: 300' Gait Level of Assist: 6 Gait Assistive Device: FWW PT Plan Problem List Problem List: Activity Tolerance, Functional Strength, Safety, Balance, Gait, Transfer Treatment/Plan Treatment Plan: Continue Plan of Care, Discontinue PT Treatment Plan: Bed Mobility, Education, Functional Activity Amanda, Functional Strength, Gait, Safety, Therapeutic Exercise, Transfers Treatment Duration: Oct 23, 2018 Frequency: 6 times per week Estimated Hrs Per Day: .25 hour per day Patient and/or Family Agrees t: Yes Time/GCodes Time In: 1010 Time Out: 1025 Total Billed Treatment Time: 15 Total Billed Treatment 1 visit FA 15 min NIKHIL LEBLANC PT Oct 20, 2018 10:46
--- NOTE | 2018-10-20 11:30 | Discharge Summary ---
Diagnosis/Chief Complaint Date of Admission Oct 15, 2018 at 17:15 Date of Discharge October 20, 2018 Reason Hospital Visit 82 yo M direct admit for acute on chronic respiratory failure manifesting with increased work of breathing and dyspnea with ambulation. I suspect he has aspiration pneumonitis that is developing into pneumonia thus we will start unasyn. Patient's respiratory difficulty was noted to occur acutely today which he reports he vomited last night (unsure of time as he is currently home alone- because his went to [place] to see her daughter). He is being checked on by a family member and home health. Patient was seen at [facility] today and labs ordered to further evaluate with low threshold for admission. Given a WBC of 26K (at [facility]-lab) and creatinine elevated to 2 from his baseline of 1.3- he also has acute on chronic renal failure likely due to poor PO intake. He is currently being treated for a left heel ulcer with [facility] and it was debrided/cultured on 10/14/18. Patient also has hypertension that is not well controlled but his diabetes is decently controlled based on hga1c of 6.2. Cxr showing increased interstitial opacities. Admitted to further evaluate. He does appear to have some confusion as well- expect this to clear up as he improves overall. Also ordering a urinanalysis as he has a history of ESBL. Discharge Summary Hospital Course Labs Laboratory Tests 10/17/18 15:32: Glucometer 223H 10/17/18 21:42: Glucometer 133H 10/18/18 05:17: Glucometer 119H 10/18/18 05:33: Red Blood Count 3.12L, Hemoglobin 9.5L, Hematocrit 28L, Mean Platelet Volume 11.0H, Monocytes (%) (Auto) 13H, Monocytes # (Auto) 1.1H, Prothrombin Time 25.2H , INR Comment 2.3H, Blood Urea Nitrogen 30H, Creatinine 1.86H, Calcium Level 8.3L, Total Protein 4.8L, Albumin 2.1L 10/18/18 11:09: Glucometer 167H 10/18/18 16:23: Glucometer 227H 10/18/18 21:20: Glucometer 234H 10/19/18 05:30: Glucometer 134H 10/19/18 05:48: Red Blood Count 3.12L, Hemoglobin 9.4L, Hematocrit 27L, Mean Platelet Volume 10.9H, Monocytes (%) (Auto) 14H, Monocytes # (Auto) 1.1H, Prothrombin Time 26.3H , INR Comment 2.4H, Sodium Level 133L, Blood Urea Nitrogen 34H, Creatinine 1.92H , Glucose Level 128H, Calcium Level 8.3L, Total Protein 5.1L, Albumin 2.1L 10/19/18 11:23: Glucometer 184H 10/19/18 16:10: Glucometer 160H 10/19/18 22:32: Glucometer 189H 10/20/18 05:40: Red Blood Count 3.17L, Hemoglobin 9.9L, Hematocrit 28L, Mean Platelet Volume 10.7H, Lymphocytes (%) (Auto) 11L, Monocytes # (Auto) 1.1H, Blood Urea Nitrogen 32H, Creatinine 1.93H, Glucose Level 110H, Total Protein 4.8L, Albumin 2.3L Procedures None. Discharge Physical Examination Allergies: Coded Allergies: sulfamethoxazole (Verified Allergy, Mild, RASH, 11/13/17) trimethoprim (Verified Allergy, Mild, RASH, 11/13/17) Vitals & I&Os Vital Signs Date Time Temp Pulse Resp B/P (MAP) Pulse Ox O2 Delivery O2 Flow Rate FiO2 10/20/18 09:48 92 Nasal Cannula 4.00 10/20/18 08:34 97.9 60 18 144/66 (92) 10/18/18 09:20 36 Discharge Home Medications Reviewed and agree with Discharge Medication list on patient's Discharge Instruction sheet Instructions to Patient/Family Please see electronic discharge instructions given to patient. Clinical Quality Measures DVT/VTE Risk/Contraindication: Risk Factor Score Per Nursin RFS Level Per Nursing on Admit: 4+=Very High RUBEN SANCHEZ MD Oct 20, 2018 11:30
[2018-10-20] MEDS ORDERED: AMOX1TAB11 PO (11:33)
--- NOTE | 2018-10-20 11:40 | D/C HH Face to Face Order ---
D/C Face to Face Orders Instructions for Patient [facility], Patient Instructions/FollowUp: patient to return home today with home health complete augmentin course stop date 10/22/18 follow up at [facility] in 2 weeks. Physician to follow Patient: Hugo Sanchez MDwork Discharge Diet for Home: ADA Diet Goals for Patient: work with Home health- nursing -Work with Physical Therapy at home and when he improves enough- he is to return cardiac rehab at [facility]. Patient Data-Allergies,Ht & Wt Patient Allergies: Coded Allergies: sulfamethoxazole (Verified Allergy, Mild, RASH, 11/13/17) trimethoprim (Verified Allergy, Mild, RASH, 11/13/17) Height (Feet): 5 Height (Inches): 6.00 Weight (Pounds): 213 Weight (Ounces): 5.0 Home Health Need/Face to Face Date of Face to Face: Oct 20, 2018 Clinical Findings: Generalized weakness and fatigue, Muscle weakness, Shortness of breath I have seen Pt [id number]: Yes Discharged To: Home Diagnosis/Conditions: left heel wound/ulcer physical debility shortness of breath with exertion. Problems/Diagnosis/Condition: (1) Physical debility (2) Falls frequently (3) Acute on chronic respiratory failure (4) HTN (hypertension) Patient is Homebound due to: CognItive deficits, Tito fall risk due to instabilty, Muscle weakness, Shortness of breath/distress Homebound Status Due to the above stated illness, injury or surgical procedure (medical condition or diagnosis) and associated clinical findings, the patient is homebound because of his/her inability to leave home except with aid of a supportive device and/or person AND leaving the home requires a considerable and taxing effort or is medically contraindicated. Pt req the following assistanc: Walker Home Health Nursing Orders Home Health Services Order: Nursing Services, Physical Therapy-Evaluate & Treat work with Home health- nursing -Work with Physical Therapy at home and when he improves enough- he is to return cardiac rehab at [facility]. Home Health Infusion Therapy Line Start Date: Oct 18, 2018 Line Start Time: 2134 Line Type: Saline Lock (discontinue) Site Location: [facility] Lab Orders PT/INR (times/week): weekly Therapy Orders Therapy Orders: Physical Therapy Therapy Specific Orders: Eval assistive deivces, Teach strategies/cognitive deficits, Teach enviro modifications/safety, Gait training, Increase strength/ endurance Certify Stmt I certify that this patient is under my care and that I, a nurse practitioner or a physician; a recruitment and outreach assistant working with me, had a face to face encounter that - meets the physician face to face encounter requirements with this patient as dated. HUGO SANCHEZ MD Oct 20, 2018 11:40
--- NOTE | 2018-10-20 15:10 | NUR ---
CM/SS. Patient discharged home today. [facility]: Coordinated with patient former agency at his request, [facility]. Confirmed receipt of continuum of care information at agency. Patient spouse comes home today, family will continue to assist as needed.
[2018-10-20 15:45] VITALS: BP 144/66
== END 2018-10-20 15:45 | disposition home health service (06) | DRG 177 ==
LOC: 4TH 17:15
PROVIDERS: ADMIT Family Medicine; ATTEND Family Medicine
DX: J69.0 Pneumonitis due to inhalation of food and vomit (principal); J96.21 Acute and chronic respiratory failure with hypoxia; N17.9 Acute kidney failure, unspecified; I13.0 Hypertensive heart and chronic kidney disease with heart failure and stage 1 through stage 4 chronic kidney disease, or unspecified chronic kidney disease; I50.32 Chronic diastolic (congestive) heart failure; N18.3 Chronic kidney disease, stage 3 (moderate); J44.1 Chronic obstructive pulmonary disease with (acute) exacerbation; J44.0 Chronic obstructive pulmonary disease with (acute) lower respiratory infection; E11.42 Type 2 diabetes mellitus with diabetic polyneuropathy; E11.51 Type 2 diabetes mellitus with diabetic peripheral angiopathy without gangrene; E11.621 Type 2 diabetes mellitus with foot ulcer; L97.422 Non-pressure chronic ulcer of left heel and midfoot with fat layer exposed; I48.2 Chronic atrial fibrillation; G47.30 Sleep apnea, unspecified; K21.9 Gastro-esophageal reflux disease without esophagitis; D64.9 Anemia, unspecified; E78.00 Pure hypercholesterolemia, unspecified; K59.09 Other constipation; C44.91 Basal cell carcinoma of skin, unspecified; E87.6 Hypokalemia; R29.6 Repeated falls; R53.1 Weakness; H35.30 Unspecified macular degeneration; Z79.4 Long term (current) use of insulin; Z87.891 Personal history of nicotine dependence; Z99.81 Dependence on supplemental oxygen; Z90.79 Acquired absence of other genital organ(s); Z79.01 Long term (current) use of anticoagulants
CPT/HCPCS: 36415; 71045; 80048; 80053; 81000; 82962; 83605; 83735; 85007; 85025; 85027; 85610; 87070; 87075; 87077; 87186; 87205; 94640; 94664; 94760

== ENCOUNTER → 2018-10-21 | Outpatient (CLI) | payer MEDICARE, BC ==
[~2018-10-21] MED LIST changes: +AMOX1TAB11 PO; +ATOR10TA66 PO; +CHOL5000 PO; +SILV480G TOP
== END ==
LOC: WOUNDCARE 09:56
PROVIDERS: ATTEND Surgery
DX: E11.621 Type 2 diabetes mellitus with foot ulcer (principal); I70.244 Atherosclerosis of native arteries of left leg with ulceration of heel and midfoot; L97.422 Non-pressure chronic ulcer of left heel and midfoot with fat layer exposed; E11.42 Type 2 diabetes mellitus with diabetic polyneuropathy
CPT/HCPCS: 11042

== ENCOUNTER 2018-10-26 22:50 | Inpatient (IN) | payer MEDICARE, BC | END 2018-10-29 16:25 | disposition home or self-care (01) | LOC: ICU 10-27 00:01 → 4TH 10-28 07:00 → ER 22:50 ==

== ENCOUNTER 2018-11-01 00:10 | Inpatient (IN) | payer MEDICARE, BC ==
[~2018-11-01] VITALS: Ht 172.7 cm; Wt 98.9 kg
[2018-11-01] VITALS (29 sets, daily range): BP systolic 103–175; BP diastolic 60–89
[2018-11-01] MEDS ORDERED: DEXAMETHASONE 4 MG/ML SDV (DECADRON) IH ONE (00:30)
[2018-11-01] MEDS ORDERED: RT-ALBUTEROL/IPRATROPIUM 3 ML (DUONEB) VIAL INH ONE (00:30)
[2018-11-01 00:31] LABS: ABG BASE EXCESS -2.1 MMOL/L (-2.5-2.5); ABG OXYGEN SATURATION 99 % (94-100); ABG PCO2 34 MMHG (35-45); ABG PH 7.42 (7.37-7.43); ABG PO2 111 MMHG (79-93); ABG TCO2 22.8 MMOL/L (21.0-31.0); ALLENS TEST POSITIVE; INSPIRED O2 15; PATIENT TEMP 98.1; VENTILATOR YES
[2018-11-01 00:56] LABS: BASOPHILS % (AUTO) 0 % (0-10); EOSINOPHILS % (AUTO) 0 % (0-10); HEMATOCRIT 25 % (40-54); HEMOGLOBIN 8.8 G/DL (13.3-17.7); LYMPHOCYTES # (AUTO) 0.8 X 10^3 (1.0-4.0); LYMPHOCYTES % (AUTO) 13 % (12-44); MEAN CORPUSCULAR HEMOGLOBIN 31 PG (25-34); MEAN CORPUSCULAR HGB CONC 36 G/DL (32-36); MEAN CORPUSCULAR VOLUME 85 FL (80-99); MONOCYTES # (AUTO) 1.7 X 10^3 (0.0-1.0); MONOCYTES % (AUTO) 29 % (0-12); NEUTROPHILS # (AUTO) 3.3 X 10^3 (1.8-7.8); NEUTROPHILS % (AUTO) 57 % (42-75); PLATELET COUNT 109 10^3/uL (130-400); WHITE BLOOD COUNT 5.7 10^3/uL (4.3-11.0)
[2018-11-01 01:07] LABS: INR 1.8 (0.8-1.4); PROTHROMBIN TIME PATIENT 20.8 SEC (12.2-14.7)
[2018-11-01 01:14] LABS: ALBUMIN 2.3 GM/DL (3.2-4.5); BILIRUBIN,TOTAL 1.2 MG/DL (0.1-1.0); CALCIUM 8.2 MG/DL (8.5-10.1); CREATININE SERUM 2.01 MG/DL (0.60-1.30); MAGNESIUM 1.8 MG/DL (1.8-2.4); POTASSIUM 3.5 MMOL/L (3.6-5.0); TOTAL PROTEIN 4.9 GM/DL (6.4-8.2)
[2018-11-01 01:33] LABS: CREATINE KINASE MB 2.2 NG/ML (<6.6); MYOGLOBIN SERUM 167.2 NG/ML (10.0-92.0); TSH (THYROID ANALYZER) 0.75 UIU/ML (0.35-4.94)
[2018-11-01] MEDS ORDERED: FUROSEMIDE 40 MG/4 ML INJ (LASIX) IVP ONE (01:45)
[2018-11-01] MEDS ORDERED: methylPREDNISolone 125 MG (Solu-MEDROL) VIAL IVP ONE (01:45)
[2018-11-01] MEDS ORDERED: CEFEPIME IV ONE (02:00)
[2018-11-01] MEDS ORDERED: WATER IV ONE (02:00)
[2018-11-01] MEDS ORDERED: NS (IVPB) 50 ML ONE (02:33)
[2018-11-01 02:39] LABS: BILIRUBIN,URINE NEGATIVE (NEGATIVE); CLARITY,URINE CLEAR; COLOR,URINE YELLOW; GLUCOSE, URINE (UA) 1+ (NEGATIVE); KETONES,URINE NEGATIVE (NEGATIVE); LEUKOCYTE ESTERASE ,URINE NEGATIVE (NEGATIVE); NITRITE,URINE NEGATIVE (NEGATIVE); PH,URINE 5 (5-9); PROTEIN,URINE 4+ (NEGATIVE); UROBILINOGEN,URINE NORMAL (NORMAL)
[2018-11-01 02:53] LABS: AMORPHOUS SEDIMENT,UR LARGE AMOR URATES /LPF; BACTERIA,URINE TRACE /HPF; SQUAMOUS EPITHELIAL CELL,UR 0-2 /HPF
[2018-11-01 02:54] LABS: EOSINOPHILS % (MANUAL) 1 %; LYMPHOCYTES % (MANUAL) 13 %; MONOCYTES % (MANUAL) 23 %; NEUTROPHILS % (MANUAL) 63 %
[2018-11-01] MEDS ORDERED: fentaNYL INJECTION 100 MCG/2 ML AMP ONE (04:03)
[2018-11-01] MEDS ORDERED: RT-ALBUTEROL/IPRATROPIUM 3 ML (DUONEB) VIAL INH PRN (04:15)
[2018-11-01] MEDS ORDERED: GENTAMICIN 100 MG/NS 100 ML IVPB IV ONE ×2 (05:15)
[2018-11-01] MEDS ORDERED: ACETAMINOPHEN 500 MG TAB (TYLENOL) PO PRN ×2 (05:15→12:45)
[2018-11-01] MEDS ORDERED: ONDANSETRON 4 MG/2 ML (SDV) Z0FRAN IV PRN (05:15)
--- NOTE | 2018-11-01 06:06 | Pulmonary Consultation ---
History of Present Illness History of Present Illness Date of Consultation 11/01/18 06:05 Date of Admission Allergies and Home Medications Allergies Coded Allergies: sulfamethoxazole (Verified Allergy, Mild, RASH, 11/13/17) trimethoprim (Verified Allergy, Mild, RASH, 11/13/17) Home Medications Acetaminophen 500 Mg Tablet, 1,000 MG PO Q6H PRN for PAIN-MILD, (Reported) Aspirin 81 Mg Tablet.dr, 81 MG PO HS, (Reported) Atorvastatin Calcium 10 Mg Tablet, 10 MG PO HS, (Reported) Carvedilol 12.5 Mg Tablet, 18.75 MG PO BID, (Reported) TAKES 1 & 1/2 (12.5MG) TABLETS Cefdinir 300 Mg Capsule, 300 MG PO BID, (Reported) 10 DAY SUPPLY FILLED 10-21-18 Cholecalciferol (Vitamin D3) 5,000 Unit Capsule, 5,000 UNIT PO DAILY, (Reported) Clopidogrel Bisulfate 75 Mg Tablet, 75 MG PO DAILY, (Reported) Digoxin 125 Mcg Tablet, 125 MCG PO DAILY, (Reported) Ferrous Sulfate 325 Mg Tablet, 325 MG PO BID, (Reported) Furosemide 20 Mg Tablet, 40 MG PO DAILY, (Reported) TAKES 2 (20MG) TABLETS Insuln Asp Prt/Insulin Aspart 300 Units/3 Ml Solution, 17 UNITS SQ 0800,2100, ( Reported) Krill Oil 500 Mg Capsule, 500 MG PO DAILY, (Reported) Losartan Potassium 100 Mg Tablet, 100 MG PO DAILY, (Reported) Ondansetron HCl 4 Mg Tablet, 4 MG PO Q4H PRN for NAUSEA/VOMITING-1ST LINE, ( Reported) Potassium Chloride 20 Meq Tab.er.prt, 20 MEQ PO BID, (Reported) Ranitidine HCl 150 Mg Tablet, 150 MG PO BID, (Reported) Silver 480 Ml Gel.er.ml., TOP DAILY, (Reported) APPLY LEFT HEAL WOUND Trospium Chloride 60 Mg Cap.er.24h, 60 MG PO DAILY, (Reported) Warfarin Sodium 5 Mg Tablet, 7.5 MG PO MoWeFr@2100, (Reported) TAKES 1 & 1/2 (5MG) TABLETS Warfarin Sodium 5 Mg Tablet, 5 MG PO SuTuThSa, (Reported) Past Pocvbyq-Becdwr-Gliapv Hx Patient Social History Alcohol Use: Denies Use Recreational Drug Use: No Smoking Status: Never a Smoker Type Used: Cigarettes Former Smoker, Quit: Jul 29, 2005 2nd Hand Smoke Exposure: No Recent Foreign Travel: No Contact w/Someone Who Travel: No Recent Infectious Disease Expo: No Recent Hopitalizations: No Immunizations Up To Date Tetanus Booster (TDap): Less than 5yrs PED Vaccines UTD: No Date of Pneumonia Vaccine: Jul 27, 2018 Date of Influenza Vaccine: Jul 27, 2018 Seasonal Allergies Seasonal Allergies: No Past Medical History Surgeries: Yes Eye Surgery, Orthopedic, Tonsillectomy, Transurethral Resection, Vascular Surgery Respiratory: Yes (02 4l at hs, used to wear cpap) Pneumonia, Sleep Apnea, COPD Currently Using CPAP: No (DOESN'T USE IT) Currently Using BIPAP: No Cardiac: Yes (LBBB) Atrial Fibrillation, High Cholesterol, Hypertension, Peripheral Vascular Neurological: Yes (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) Neuropathy Reproductive Disorders: No Sexually Transmitted Disease: No HIV/AIDS: No Genitourinary: Yes (TURP) Benign Prostatic Hyperpl, Renal Failure, UTI-Chronic Gastrointestinal: Yes Gastroesophageal Reflux, Chronic Constipation Musculoskeletal: Yes (GENERALIZED WEAKNESS; FREQUENT FALLS ) Endocrine: Yes Diabetes, Insulin dep HEENT: Yes Cataract, Macular Degeneration Hearing Impairment: Hard of Hearing Cancer: Yes (BASAL CELL CARCINOMA) Skin Did You Recieve Any Treatments: No Psychosocial: Yes Sleep Difficulties Integumentary: Yes (CELLULITIS IN LEFT KNEE EARLY OCTOBER 2013; DIABETIC FOOT ULCER. ) Recent Skin Changes Blood Disorders: No Adverse Reaction/Blood Tranf: No Family Medical History COPD 19 FATHER Colon cancer 19 MOTHER Diabetes mellitus G8 SISTER Drug abuse G8 SISTER Lung cancer 19 FATHER Polio G8 BROTHER Sarcoidosis G8 BROTHER Cancer Sepsis Event Evaluation Height, Weight, BMI Height: 5'8.00" Weight: 220lbs. 0.0oz. 99.085052iu; 33.5 BMI Method:Stated Exam Exam Vital Signs Date Time Temp Pulse Resp B/P (MAP) Pulse Ox O2 Delivery O2 Flow Rate FiO2 11/01/18 05:30 82 27 112/62 (79) 100 NIV Bilevel 40.00 11/01/18 05:00 85 30 113/60 (77) 99 NIV Bilevel 40.00 11/01/18 04:30 80 30 119/64 (82) 100 NIV Bilevel 40.00 11/01/18 04:15 91 28 110/65 (80) 100 NIV Bilevel 40.00 11/01/18 04:00 86 103/68 (80) 100 NIV Bilevel 40.00 11/01/18 04:00 100 NIV Bilevel 40.00 11/01/18 03:55 88 31 99 40.00 11/01/18 03:55 88 99 40 11/01/18 03:45 97.0 80 111/63 (79) 100 NIV Bilevel 40.00 11/01/18 03:39 87 11/01/18 03:25 99 40.00 11/01/18 03:25 98.1 90 30 106/71 98 40.00 40.00 11/01/18 00:33 90 30 98 40.00 11/01/18 00:10 98.1 86 22 136/87 (103) 97 Non Rebreather Height & Weight Height: 5'8.00" Weight: 220lbs. 0.0oz. 99.490573gk; 33.5 BMI Method:Stated Capillary Refill: Less Than 3 Seconds Results Lab Laboratory Tests 11/01/18 00:42 Assessment/Plan Assessment/Plan Acute on chronic respiratory failure -PT has required rehab at [facility] secondary to respiratory failure. [facility] Afib Anemia, stable -Monitor Acute on chronic renal failure - baseline Cr since 07/16 is around 1.8 (Cr was normal 05/16) -Monitor close Dementia with home frequent falls -PT/OT KEIKO VALENZUELA DO Nov 01, 2018 06:06
--- NOTE | 2018-11-01 06:31 | Diagnostic Imaging Report ---
Indication: Shortness of breath COMPARISON: 10/29/2018 FINDINGS: Single view of the chest demonstrates bibasilar atelectasis. Trace effusion is seen in the left base. Heart is prominent without pulmonary edema. There is no pneumothorax. IMPRESSION: Basilar atelectasis with trace effusion left costophrenic angle. Dictated by: Dictated on workstation # [id number]
[2018-11-01] MEDS: inSUlin ASPART (NovoLOG) 1 UNIT/0.01 ML (CHARGE PER UNIT) SC SCH ×4 (06:57→22:01)
[2018-11-01] MEDS: AZITHROMYCIN 500 MG/NS 250 ML IVPB IV SCH ×2 (06:57)
--- NOTE | 2018-11-01 07:30 | NUR ---
IV INFILTRATED RESTARTED IN RIGHT WRIST WITH #22 TIMES 2 STICKS,
[2018-11-01] MEDS ORDERED: methylPREDNISolone 125 MG (Solu-MEDROL) VIAL IV SCH ×2 (08:00)
[2018-11-01] MEDS: methylPREDNISolone 40 MG/ML (Solu-MEDROL) VIAL IV SCH ×3 (08:24→22:00)
--- NOTE | 2018-11-01 08:37 | NUR ---
CR 2.01; CR CL ~30; WT 99.7 KG; IBW 68 KG; GENT 440 MG IV Q24H ; GENT RANDOM LEVEL AT 1800 TONIGHT
[2018-11-01] MEDS ORDERED: GENTAMICIN IV SCH (09:00)
[2018-11-01] MEDS ORDERED: NS IV SCH (09:00)
[2018-11-01] MEDS: RT-ALBUTEROL/IPRATROPIUM 3 ML (DUONEB) VIAL INH SCH ×3 (09:09→19:01)
--- NOTE | 2018-11-01 10:30 | NUR ---
DR GALLARDO NOTIFIED OF CONSULT, BATH GIVEN, CHIOMA WELL, BI PAP CONTINUED, O2 SAT 100 PERCENT, INCONT URINE, TURNED TO RIGHT SIDE, DENIES PAIN OR SOB, CALL LIGHT WITHIN REACH, DRESSING CHANGED TO LEFT HEEL, OPEN SKIN AREA, HEELS FLOATED OFF BED WITH PILLOW, CONTINUE ON ISOLATION
--- NOTE | 2018-11-01 10:31 | ED Respiratory ---
General Chief Complaint: Respiratory Problems Stated Complaint: ACUTE ON RESPIRATORY FAILURE;PNEUMONIA;PLEURAL Nursing Triage Note: PT BROUGHT IN BY EMS, REPORTED BY THE PT THAT HE WAS DISCHARGED FROM THE HOSPITAL ON 10/30/18 D/T RESPIRATORY ISSUES. PT STATES HE BEGAN TO BECOME PROGRESSIVELY WEAKER THIS EVENING WITH INCREASED WORK OF BREATHING. PT NOTED TO HAVE AUDIBLE WET LUNGS SOUNDS UPON ARRIVAL. 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 Source: patient (VERY LIMITED HISTORIAN--NOT WANTING TO ANSWER MOST QUESTIONS. ), EMS, old records, spouse ( ARRIVES LATER AND GIVES SOME ADDITIONAL INFORMATION) History of Present Illness Date Seen by Provider: Oct 31, 2018 Time Seen by Provider: 23:58 Initial Comments PT ARRIVES VIA EMS FROM HOME PT C/O GENERALIZED WEAKNESS--WAS UNABLE TO WALK TO AND FROM BATHROOM DUE TO WEAKNESS, AND COULDN'T GO ANY FURTHER AND JUST SAT DOWN ON THE FLOOR. EMS WAS THEN CALLED, FAMILY COULD NOT GET PT OFF THE FLOOR. PT DID NOT FALL--WAS WITNESS, THAT PT SIMPLY SAT DOWN ON THE FLOOR BECAUSE HE COULD NOT WALK ANY MORE PT ALSO C/O SHORTNESS OF BREATH HAS HAD PRODUCTIVE COUGH--UNKNOWN COLOR IS UNKNOWN IF HE HAS HAD FEVER OR NOT EMS REPORT O2 SAT 92% ON 6L/MASK. ARRIVES LATER AND STATES THAT PT HAS HAD DECREASED MENTATION ALL DAY, ALONG WITH PROGRESSIVE GENERALIZED WEAKNESS ALL DAY PT WAS DISMISSED FROM HOSPITAL 10/29/18 FOR COPD/ACUTE ON CHRONIC RESPIRATORY FAILURE. PT HAS BEEN ADMITTED 10/15-10/20 AND AGAIN 10/27-10/29 FOR ACUTE ON CHRONIC RESPIRATORY FAILURE WITH POSSIBLE ASPIRATION PNEUMONIA REPORTS THAT INITIAL PLAN WAS FOR PT TO GO TO CORRECTION AFTER THE LAST ADMISSION,, BUT THEN PT STATED HE JUST WANTED TO GO BACK HOME. PCP: DR. Lina SANCHEZ Allergies and Home Medications Allergies Coded Allergies: sulfamethoxazole (Verified Allergy, Mild, RASH, 11/13/17) trimethoprim (Verified Allergy, Mild, RASH, 11/13/17) Home Medications Acetaminophen 500 Mg Tablet, 1,000 MG PO Q6H PRN for PAIN-MILD, (Reported) Aspirin 81 Mg Tablet.dr, 81 MG PO HS, (Reported) Atorvastatin Calcium 10 Mg Tablet, 10 MG PO HS, (Reported) Carvedilol 12.5 Mg Tablet, 18.75 MG PO BID, (Reported) TAKES 1 & 1/2 (12.5MG) TABLETS Cholecalciferol (Vitamin D3) 5,000 Unit Capsule, 5,000 UNIT PO DAILY, (Reported) Clopidogrel Bisulfate 75 Mg Tablet, 75 MG PO DAILY, (Reported) Digoxin 125 Mcg Tablet, 125 MCG PO DAILY, (Reported) Ferrous Sulfate 325 Mg Tablet, 325 MG PO BID, (Reported) Furosemide 20 Mg Tablet, 40 MG PO DAILY, (Reported) TAKES 2 (20MG) TABLETS Insuln Asp Prt/Insulin Aspart 300 Units/3 Ml Solution, 17 UNITS SQ 0800,2100, ( Reported) Krill Oil 500 Mg Capsule, 500 MG PO DAILY, (Reported) Losartan Potassium 100 Mg Tablet, 100 MG PO DAILY, (Reported) Ondansetron HCl 4 Mg Tablet, 4 MG PO Q4H PRN for NAUSEA/VOMITING-1ST LINE, ( Reported) Potassium Chloride 20 Meq Tab.er.prt, 20 MEQ PO BID, (Reported) Ranitidine HCl 150 Mg Tablet, 150 MG PO BID, (Reported) Silver 480 Ml Gel.er.ml., TOP DAILY, (Reported) APPLY LEFT HEAL WOUND Trospium Chloride 60 Mg Cap.er.24h, 60 MG PO DAILY, (Reported) Warfarin Sodium 5 Mg Tablet, 7.5 MG PO MoWeFr@2100, (Reported) TAKES 1 & 1/2 (5MG) TABLETS Warfarin Sodium 5 Mg Tablet, 5 MG PO SuTuThSa, (Reported) Patient Home Medication List Home Medication List Reviewed: Yes Review of Systems Review of Systems Constitutional: see HPI; No dizziness, No fever; malaise, weakness EENTM: no symptoms reported Respiratory: see HPI, cough, dyspnea on exertion, phlegm, short of breath, wheezing Cardiovascular: No chest pain, No palpitations, No syncope Gastrointestinal: no symptoms reported Musculoskeletal: no symptoms reported Skin: no symptoms reported Psychiatric/Neurological: See HPI Hematologic/Lymphatic: No Symptoms Reported Immunological/Allergic: no symptoms reported Past Mnbsdnx-Aixtws-Mjcelo Hx Patient Social History Alcohol Use: Denies Use Recreational Drug Use: No Smoking Status: Former Smoker Type Used: Cigarettes Former Smoker, Quit: Jul 29, 2005 2nd Hand Smoke Exposure: No Recent Foreign Travel: No Contact w/Someone Who Travel: No Recent Infectious Disease Expo: No Recent Hopitalizations: No Immunizations Up To Date Tetanus Booster (TDap): Less than 5yrs PED Vaccines UTD: No Date of Pneumonia Vaccine: Jul 27, 2018 Date of Influenza Vaccine: Jul 27, 2018 Seasonal Allergies Seasonal Allergies: No Past Medical History Surgeries: Yes (CATARACTS; CARPAL TUNNEL; BILATERAL THUMBS; CARDIAC CATHS; ANGIOPLASTY AND STENT TO LEFT LEG SFA) Eye Surgery, Orthopedic, Tonsillectomy, Transurethral Resection, Vascular Surgery Respiratory: Yes (02 4l at hs, used to wear cpap) Pneumonia, Sleep Apnea, COPD Currently Using CPAP: No (DOESN'T USE IT) Currently Using BIPAP: No Cardiac: Yes (LBBB) Atrial Fibrillation, Chronic Edema/Swelling, High Cholesterol, Hypertension, Peripheral Vascular Neurological: Yes (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) Neuropathy Reproductive Disorders: No Sexually Transmitted Disease: No HIV/AIDS: No Genitourinary: Yes (TURP) Benign Prostatic Hyperpl, Prostate Problems, Renal Failure, UTI-Chronic Gastrointestinal: Yes Gastroesophageal Reflux, Chronic Constipation Musculoskeletal: Yes (GENERALIZED WEAKNESS; FREQUENT FALLS ) Endocrine: Yes Diabetes, Insulin dep HEENT: Yes Cataract, Macular Degeneration Hearing Impairment: Hard of Hearing Cancer: Yes (BASAL CELL CARCINOMA) Skin Did You Recieve Any Treatments: No Psychosocial: Yes Sleep Difficulties Integumentary: Yes (CELLULITIS IN LEFT KNEE EARLY OCTOBER 2013; DIABETIC FOOT ULCER. ) Recent Skin Changes Blood Disorders: No Adverse Reaction/Blood Tranf: No Family Medical History COPD 19 FATHER Colon cancer 19 MOTHER Diabetes mellitus G8 SISTER Drug abuse G8 SISTER Lung cancer 19 FATHER Polio G8 BROTHER Sarcoidosis G8 BROTHER Cancer Physical Exam Vital Signs - First Documented 11/01/18 11/01/18 00:10 00:11 Temp 98.1 Pulse 86 Resp 22 B/P (MAP) 136/87 (103) Pulse Ox 97 O2 Delivery Non Rebreather O2 Flow Rate 6.00 Capillary Refill : Less Than 3 Seconds Height: 5'8.00" Weight: 220lbs. 0.0oz. 99.228147yc; 33.5 BMI Method:Stated General Appearance: moderate distress, other (AUDIBLE RHONCHI FROM THE AMBULANCE BAY DOORWAY ON ARRIVAL. FREQUENT LOOSE COUGH. ;LETHARGIC, MINIMALLY VERBAL. 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 PT NOT REALLY TALKING OR FOLLOWING COMMANDS ON ARRIVAL GENERALIZED WEAKNESSS) Skin: normal color, warm/dry Focused Exam Lactate Level 11/01/18 00:42: Lactic Acid Level 1.45 Lactic Acid Level Laboratory Tests Test 11/01/18 00:42 Lactic Acid Level 1.45 MMOL/L (0.50-2.00) Procedures/Interventions Date of ETT Placement: Oct 13, 2016 Time of ETT Placement: 2129 Progress/Results/Core Measures Suspected Sepsis Recent Fever Within 48 Hours: No Infection Criteria Present: Documented Infection New/Unexplained Altered Menta: No Sepsis Screen: No Definite Risk SIRS Temperature:97.0 Pulse: 82 Respiratory Rate: 26 Laboratory Tests 11/01/18 00:42: White Blood Count 5.7 Blood Pressure 129 /74 Mean: 92 11/01/18 00:42: Lactic Acid Level 1.45 Laboratory Tests 11/01/18 00:42: Creatinine 2.01H, INR Comment 1.8H, Platelet Count 109L, Total Bilirubin 1.2H Results/Orders Lab Results Laboratory Tests Test 11/01/18 00:25 11/01/18 00:42 Range/Units Blood Gas Puncture Site R RADIAL Blood Gas Patient Temperature 98.1 Arterial Blood pH 7.42 7.37-7.43 Arterial Blood Partial Pressure CO2 34 L 35-45 MMHG Arterial Blood Partial Pressure O2 111 H 79-93 MMHG Arterial Blood HCO3 22 L 23-27 MMOL/L Arterial Blood Total CO2 22.8 21.0-31.0 MMOL/L Arterial Blood Oxygen Saturation 99 94-100 % Arterial Blood Base Excess -2.1 -2.5-2.5 MMOL/L Kadeem Test POSITIVE Blood Gas Ventilator Setting YES Blood Gas Inspired Oxygen 15 White Blood Count 5.7 4.3-11.0 10^3/uL Red Blood Count 2.87 L 4.35-5.85 10^6/uL Hemoglobin 8.8 L 13.3-17.7 G/DL Hematocrit 25 L 40-54 % Mean Corpuscular Volume 85 80-99 FL Mean Corpuscular Hemoglobin 31 25-34 PG Mean Corpuscular Hemoglobin Concent 36 32-36 G/DL Red Cell Distribution Width 14.0 10.0-14.5 % Platelet Count 109 L 130-400 10^3/uL Mean Platelet Volume 11.0 H 7.4-10.4 FL Neutrophils (%) (Auto) 57 42-75 % Lymphocytes (%) (Auto) 13 12-44 % Monocytes (%) (Auto) 29 H 0-12 % Eosinophils (%) (Auto) 0 0-10 % Basophils (%) (Auto) 0 0-10 % Neutrophils # (Auto) 3.3 1.8-7.8 X 10^3 Lymphocytes # (Auto) 0.8 L 1.0-4.0 X 10^3 Monocytes # (Auto) 1.7 H 0.0-1.0 X 10^3 Eosinophils # (Auto) 0.0 0.0-0.3 10^3/uL Basophils # (Auto) 0.0 0.0-0.1 10^3/uL Neutrophils % (Manual) 63 % Lymphocytes % (Manual) 13 % Monocytes % (Manual) 23 % Eosinophils % (Manual) 1 % Prothrombin Time 20.8 H 12.2-14.7 SEC INR Comment 1.8 H 0.8-1.4 Activated Partial Thromboplast Time 34 24-35 SEC Sodium Level 135 135-145 MMOL/L Potassium Level 3.5 L 3.6-5.0 MMOL/L Chloride Level 103 98-107 MMOL/L Carbon Dioxide Level 20 L 21-32 MMOL/L Anion Gap 12 5-14 MMOL/L Blood Urea Nitrogen 56 H 7-18 MG/DL Creatinine 2.01 H 0.60-1.30 MG/DL Estimat Glomerular Filtration Rate 32 BUN/Creatinine Ratio 28 Glucose Level 115 H 70-105 MG/DL Lactic Acid Level 1.45 0.50-2.00 MMOL/L Calcium Level 8.2 L 8.5-10.1 MG/DL Corrected Calcium 9.6 8.5-10.1 MG/DL Magnesium Level 1.8 1.8-2.4 MG/DL Total Bilirubin 1.2 H 0.1-1.0 MG/DL Aspartate Amino Transf (AST/SGOT) 18 5-34 U/L Alanine Aminotransferase (ALT/SGPT) 25 0-55 U/L Alkaline Phosphatase 55 40-136 U/L Total Creatine Kinase 27 L 30-200 U/L Creatine Kinase MB 2.2 <6.6 NG/ML Myoglobin 167.2 H 10.0-92.0 NG/ML Troponin I 0.038 <0.028 NG/ML B-Type Natriuretic Peptide 134.3 H <100.0 PG/ML Total Protein 4.9 L 6.4-8.2 GM/DL Albumin 2.3 L 3.2-4.5 GM/DL TSH [place] Testing 0.75 0.35-4.94 UIU/ML Digoxin Level 0.98 0.80-2.00 NG/ML My Orders Orders - DARIN BROWNE DO Saline Lock/Iv-Start (11/01/18:18) Ekg Tracing (11/01/18:18) O2 (11/01/18:18) Monitor-Rhythm Ecg Trace Only (11/01/18:18) Arterial Blood Gas (11/01/18:18) BNP (11/01/18:18) Cbc With Automated Diff (11/01/18:18) Comprehensive Metabolic Panel (11/01/18:18) Creatine Kinase (11/01/18:18) Creatine Kinase Mb (11/01/18:18) Lactic Acid Analyzer (11/01/18:18) Magnesium (11/01/18:18) Protime With Inr (11/01/18:18) Partial Thromboplastin Time (11/01/18:18) Thyroid Analyzer (11/01/18:18) Troponin I (11/01/18:18) Ua Culture If Indicated (11/01/18:18) Blood Culture (11/01/18:18) Influenza A And B Antigens (11/01/18:18) Sputum Culture (11/01/18:18) Chest 1 View, Ap/Pa Only (11/01/18:18) Albuterol/Ipra Inhalation Soln (Duoneb I (11/01/18 00:30) Dexamethasone Injection (Decadron Inject (11/01/18 00:30) Rt Request For Service (11/01/18:18) Svn Small Volume Nebulizer (11/01/18:18) Myoglobin Serum (2/3/19 00:18) Manual Differential (11/01/18 00:42) Furosemide Injection (Lasix Injection) (11/01/18 01:45) Methylprednisolone Sod Succ (Solu-Medrol (11/01/18 01:45) Straight Cath For Spec.-Adult (11/01/18 01:48) Cefepime Injection (Maxipime Injection) (11/01/18 02:00) Medications Given in ED Current Medications Medications Dose Ordered Sig/Nidhi Route Start Time Stop Time Status Last Admin Dose Admin Cefepime HCl 1000 mg/Sterile Water 50 ml @ 200 mls/hr ONCE ONCE IV 11/01/18 02:00 11/01/18 02:14 DC 11/01/18 02:49 200 MLS/HR Furosemide 80 mg ONCE ONCE IVP 11/01/18 01:45 11/01/18 01:46 DC 11/01/18 00:32 80 MG Methylprednisolone Sodium Succinate 125 mg ONCE ONCE IVP 11/01/18 01:45 11/01/18 01:46 DC 11/01/18 00:32 125 MG Vital Signs/I&O 11/01/18 11/01/18 11/01/18 11/01/18 00:10 00:11 00:33 01:04 Temp 98.1 98.3 Pulse 86 90 90 Resp 22 30 30 B/P (MAP) 136/87 (103) 128/77 Pulse Ox 97 97 98 98 O2 Delivery Non Rebreather Nasal Cannula O2 Flow Rate 6.00 40.00 6.00 Capillary Refill : Less Than 3 Seconds Blood Pressure Mean: 92 Point of Care Testing Finger Stick Blood Glucose: 212 Progress Note : Progress Note PT GIVEN HOUR LONG NEB TREATMENT AND PLACED ON BIPAP ON ARRIVAL WITH MUCH IMPROVEMENT LUNGS CLEARED AND RESPIRATIONS ARE EVEN AND MUCH LESS LABORED. PT IS A LITTLE MORE LAE NO DETERIORATION IN PT'S CONDITION DURING ER STAY O2 SATS IN UPPER 90'S FOR REMAINDER OF ER STAY ECG Initial ECG Impression Date: Nov 01, 2018 Initial ECG Impression Time: 00:04 Initial ECG Rate: 87 Initial ECG Rhythm: A Fib/Flutter Initial ECG Impression: Nonspecific Changes Initial ECG Comparisson: Unchanged Diagnostic Imaging Comments CXR--BIBASILAR INFILTRATES WITH RIGHT PLEURAL EFFUSION, PENDING RADIOLOGIST REVIEW Reviewed: Reviewed by [place] Departure Communication (Admissions) [id number]--SPOKE WITH DR. MORTENSEN, HOSPITALIST, ACCEPTS PT FOR ADMIT. WILL CONSULT PULMONOLOGY AND CARDIOLOGY IN AM. Impression Primary Impression: Acute on chronic respiratory failure Additional Impressions: COPD exacerbation CHF (congestive heart failure) Atrial fibrillation Pneumonia Anemia Chronic renal insufficiency Chronic atrial fibrillation Acute on chronic diastolic (congestive) heart failure Disposition: ADMITTED INPATIENT Condition: Improved Admissions Decision to Admit Reason: Admit from ER (General) Decision to Admit/Date: Nov 01, 2018 Time/Decision to Admit Time: 02:00 Departure-Patient Inst. Referrals: RUBEN SANCHEZ MD (PCP) Primary Care Physician DARIN BROWNE DO Nov 01, 2018 10:31
--- NOTE | 2018-11-01 12:17 | History & Physical-Hospitalist ---
History of Present Illness HPI/Chief Complaint CC: Recurrent pneumonia HPI: This is an 83-year-old white male who has frequent hospital stays most recent one week ago for pneumonia who went home on home health was brought to the ER yesterday for altered mental status and found to have recurrent pneumonia with respiratory insufficiency. He remains a full code. He is been maintained on BiPAP and overall stable but poor prognosis remains. Dr. Herring expertise is appreciated. I have restarted all of his home medication the patient drowsy and sleeping soundly so does not contribute to the interview. Source: RN/MD Exam Limitations: clinical condition Date Seen 11/01/18 Time Seen by a Provider: 12:00 Attending Physician Hugo Alexander MD PCP Hugo Alexander MD Referring Physician Date of Admission Nov 01, 2018 at 02:04 Home Medications & Allergies Home Medications Reviewed patient Home Medication Reconciliation performed by pharmacy medication reconciliations hvac technician and/or nursing. Patients Allergies have been reviewed. Allergies Allergies Coded Allergies sulfamethoxazole (Verified Allergy, Mild, RASH, 11/13/17) trimethoprim (Verified Allergy, Mild, RASH, 11/13/17) Past Okthfor-Ukwgtx-Upnyxs Hx Past Med/Social Hx: Reviewed Nursing Past Med/Soc Hx, Reviewed and Corrections made Patient Social History Marrital Status: Employed/Student: retired Alcohol Use: Denies Use Recreational Drug Use: No Smoking Status: Former Smoker Former Smoker, Quit: Jul 29, 2005 Type Used: Cigarettes 2nd Hand Smoke Exposure: No Recent Foreign Travel: No Contact w/other who traveled: No Recent Hopitalizations: No Recent Infectious Disease Expo: No Immunizations Up To Date Tetanus Booster (TDap): Less than 5yrs Pediatric: No Date of Pneumonia Vaccine: Jul 27, 2018 Date of Influenza Vaccine: Jul 27, 2018 Seasonal Allergies Seasonal Allergies: No Past Medical History Surgeries: Eye Surgery, Orthopedic, Tonsillectomy, Transurethral Resection, Vascular Surgery Respiratory: COPD, Pneumonia, Sleep Apnea Currently Using CPAP: No (DOESN'T USE IT) Currently Using BIPAP: No Cardiac: Atrial Fibrillation, Chronic Edema/Swelling, High Cholesterol, Hypertension, Peripheral Vascular Neurological: Neuropathy Reproductive: No Sexually Transmitted Disease: No HIV/AIDS: No Genitourinary: Benign Prostatic Hyperpl, Prostate Problems, Renal Failure, UTI- Chronic Gastrointestinal: Gastroesophageal Reflux, Chronic Constipation Endocrine: Diabetes, Insulin dep HEENT: Cataract, Macular Degeneration Hearing Impairment: Hard of Hearing Cancer: Skin Did You Recieve Any Treatments: No Psychosocial: Sleep Difficulties Skin/Integumentary: Recent Skin Changes History of Blood Disorders: No Adverse Reaction to Blood Brandt: No Family History COPD 19 FATHER Colon cancer 19 MOTHER Diabetes mellitus G8 SISTER Drug abuse G8 SISTER Lung cancer 19 FATHER Polio G8 BROTHER Sarcoidosis G8 BROTHER Cancer Review of Systems ROS-Unable to Obtain: unable to ascertain Constitutional: see HPI Physical Exam Physical Exam Vital Signs Vital Signs - First Documented 11/01/18 11/01/18 11/01/18 00:10 00:11 03:55 Temp 98.1 Pulse 86 Resp 22 B/P (MAP) 136/87 (103) Pulse Ox 97 O2 Delivery Non Rebreather O2 Flow Rate 6.00 FiO2 40 Capillary Refill : Less Than 3 Seconds Height, Weight, BMI Height: 5'8.00" Weight: 221lbs. 0.0oz. [id number]; 33.5 BMI Method:Stated General Appearance: No Apparent Distress, WD/WN, Chronically ill Eyes: Bilateral Eye Normal Inspection, Bilateral Eye PERRL HEENT: PERRL/EOMI, Normal ENT Inspection, Pharynx Normal Neck: Full Range of Motion, Normal Inspection, Non Tender, Supple, Carotid Bruit Respiratory: Chest Non Tender, No Accessory Muscle Use, No Respiratory Distress , Decreased Breath Sounds Cardiovascular: No Edema, No Gallop, No JVD, No Murmur, Normal Peripheral Pulses, Irregularly Irregular Gastrointestinal: Normal Bowel Sounds, No Organomegaly, No Pulsatile Mass, Non Tender, Soft Back: Normal Inspection, No CVA Tenderness, No Vertebral Tenderness Extremity: Normal Capillary Refill, Normal Inspection, Normal Range of Motion, Non Tender, No Calf Tenderness, No Pedal Edema Neurologic/Psychiatric: Other (sleeping) Skin: Normal Color, Warm/Dry Lymphatic: No Adenopathy Results Results/Procedures Labs Laboratory Tests 11/01/18 00:42 Patient resulted labs reviewed. Assessment/Plan Admission Diagnosis Assessment: Recurrent pneumonia Respiratory insufficiency Chronic atrial fibrillation Anticoagulation chronic Poor prognosis Plan: Continue aggressive respiratory treatment IV antibiotics Disposition likely needs [place] [facility] or hospice Admission Status: Inpatient Order (span 2 midnights) Reason for Inpatient Admission: Recurrent pneumonia with respiratory failure Diagnosis/Problems Diagnosis/Problems (1) Pneumonia Status: Acute Qualifiers: Pneumonia type: due to unspecified organism (2) Acute on chronic respiratory failure Status: Acute (3) Acute on chronic diastolic (congestive) heart failure Status: Acute (4) COPD exacerbation Status: Acute (5) Chronic atrial fibrillation Status: Acute (6) Chronic renal insufficiency Status: Chronic (7) Anemia Status: Chronic Qualifiers: Anemia type: unspecified type Qualified Codes: D64.9 - Anemia, unspecified (8) IDDM (insulin dependent diabetes mellitus) Status: Chronic (9) Physical debility Status: Chronic (10) Falls frequently Status: Chronic (11) Anticoagulant long-term use Status: Chronic (12) HTN (hypertension) Status: Chronic Qualifiers: Hypertension type: essential hypertension Qualified Codes: I10 - Essential (primary) hypertension Clinical Quality Measures DVT/VTE Risk/Contraindication: Risk Factor Score Per Nursin RFS Level Per Nursing on Admit: 4+=Very High SASCHA MORTENSEN DO Nov 01, 2018 12:17
--- NOTE | 2018-11-01 12:21 | Consultation-Cardiology ---
HPI-Cardiology Cardiology Consultation: Date of Consultation 11/01/18 Time Seen by a Provider: 11:55 Date of Admission Attending Physician Hugo Alexander MD Admitting Physician Hugo Alexander MD Consulting Physician BITA GALLARDO MD, MA, FACP, FACC, FSCAI, CCDS Physician requesting consult: Dr Goyal HPI: Chief Complaint: CC: Shortness of breath 83 [address] to Dr Goyal with increasing shortness of breath. Has chronic shortness of breath that has progressively been worsening. No cp or palp or syncope. Chronic bilat leg swelling. Chronic gen malaise and weakness Review of Systems-Cardiology Review of Systems Constitutional: As described under HPI Eyes: No vision change Ears/Nose/Throat: No ear discharge, No nasal drainage, No recent hearing loss Respiratory: As described under HPI Cardiovascular: As described under HPI Gastrointestinal: No diarrhea, No nausea, No vomiting Genitourinary: No dysuria, No hematuria, No urine frequency changes Musculoskeletal: back pain (chronic), joint pain (chronic) Skin: No rash, No ulcerations Psychiatric/Neurological: No seizure, No focal weakness, No syncope Hematologic: No bleeding abnormalities YYZ-Ysoias-Lcskxe Hx Patient Social History Alcohol Use: Denies Use Recreational Drug Use: No Smoking Status: Former Smoker Former smoker/When Quit: Apr 24, 2005 Type Used: Cigarettes 2nd Hand Smoke Exposure: No Recent Foreign Travel: No Recent Infectious Disease Expo: No Hospitalization with Isolation: Denies Immunizations Up To Date Tetanus Booster (TDap): Less than 5yrs Date of Pneumonia Vaccine: Jul 27, 2018 Date of Influenza Vaccine: Jul 27, 2018 Past Medical History PMH As described under Assessment. Family Medical History Family History: COPD 19 FATHER Colon cancer 19 MOTHER Diabetes mellitus G8 SISTER Drug abuse G8 SISTER Lung cancer 19 FATHER Polio G8 BROTHER Sarcoidosis G8 BROTHER Allergies and Home Medications Allergies Coded Allergies: sulfamethoxazole (Verified Allergy, Mild, RASH, 11/13/17) trimethoprim (Verified Allergy, Mild, RASH, 11/13/17) Home Medications Acetaminophen 500 Mg Tablet, 1,000 MG PO Q6H PRN for PAIN-MILD, (Reported) Aspirin 81 Mg Tablet.dr, 81 MG PO HS, (Reported) Atorvastatin Calcium 10 Mg Tablet, 10 MG PO HS, (Reported) Carvedilol 12.5 Mg Tablet, 18.75 MG PO BID, (Reported) TAKES 1 & 1/2 (12.5MG) TABLETS Cholecalciferol (Vitamin D3) 5,000 Unit Capsule, 5,000 UNIT PO DAILY, (Reported) Clopidogrel Bisulfate 75 Mg Tablet, 75 MG PO DAILY, (Reported) Digoxin 125 Mcg Tablet, 125 MCG PO DAILY, (Reported) Ferrous Sulfate 325 Mg Tablet, 325 MG PO BID, (Reported) Furosemide 20 Mg Tablet, 40 MG PO DAILY, (Reported) TAKES 2 (20MG) TABLETS Insuln Asp Prt/Insulin Aspart 300 Units/3 Ml Solution, 17 UNITS SQ 0800,2100, ( Reported) Krill Oil 500 Mg Capsule, 500 MG PO DAILY, (Reported) Losartan Potassium 100 Mg Tablet, 100 MG PO DAILY, (Reported) Ondansetron HCl 4 Mg Tablet, 4 MG PO Q4H PRN for NAUSEA/VOMITING-1ST LINE, ( Reported) Potassium Chloride 20 Meq Tab.er.prt, 20 MEQ PO BID, (Reported) Ranitidine HCl 150 Mg Tablet, 150 MG PO BID, (Reported) Silver 480 Ml Gel.er.ml., TOP DAILY, (Reported) APPLY LEFT HEAL WOUND Trospium Chloride 60 Mg Cap.er.24h, 60 MG PO DAILY, (Reported) Warfarin Sodium 5 Mg Tablet, 7.5 MG PO MoWeFr@2100, (Reported) TAKES 1 & 1/2 (5MG) TABLETS Warfarin Sodium 5 Mg Tablet, 5 MG PO SuTuThSa, (Reported) Patient Home Medication List Home Medication List Reviewed: Yes Physical Exam-Cardiology Physical Exam Vital Signs/I&O 11/01/18 11/01/18 11/01/18 11/01/18 00:33 01:04 03:23 03:25 Temp 98.3 98.4 98.1 Pulse 90 90 73 90 Resp 30 30 24 30 B/P (MAP) 128/77 137/73 (94) 106/71 Pulse Ox 98 98 98 98 O2 Delivery Nasal Cannula O2 Flow Rate 40.00 6.00 6.00 40.00 40.00 11/01/18 11/01/18 11/01/18 11/01/18 03:25 03:39 03:45 03:55 Temp 97.0 Pulse 87 80 88 B/P (MAP) 111/63 (79) Pulse Ox 99 100 99 O2 Delivery NIV Bilevel O2 Flow Rate 40.00 40.00 FiO2 40 11/01/18 11/01/18 11/01/18 11/01/18 03:55 04:00 04:00 04:15 Pulse 88 86 91 Resp 31 28 B/P (MAP) 103/68 (80) 110/65 (80) Pulse Ox 99 100 100 100 O2 Delivery NIV Bilevel NIV Bilevel NIV Bilevel O2 Flow Rate 40.00 40.00 40.00 40.00 11/01/18 11/01/18 11/01/18 11/01/18 04:30 05:00 05:30 06:00 Pulse 80 85 82 76 Resp 30 30 27 27 B/P (MAP) 119/64 (82) 113/60 (77) 112/62 (79) 113/65 (81) Pulse Ox 100 99 100 100 O2 Delivery NIV Bilevel NIV Bilevel NIV Bilevel NIV Bilevel O2 Flow Rate 40.00 40.00 40.00 40.00 11/01/18 11/01/18 11/01/18 11/01/18 06:35 07:00 07:00 08:00 Temp 97.4 Pulse 81 83 89 Resp 31 25 B/P (MAP) 119/63 (81) Pulse Ox 98 92 O2 Delivery NIV Bilevel O2 Flow Rate 30.00 40.00 11/01/18 11/01/18 11/01/18 11/01/18 08:00 08:00 09:00 09:00 Pulse 84 87 Resp 25 27 B/P (MAP) 147/67 (93) 143/83 (103) Pulse Ox 98 100 98 100 O2 Delivery NIV Bilevel NIV Bilevel NIV Bilevel NIV Bilevel O2 Flow Rate 40.00 30.00 30.00 40.00 11/01/18 11/01/18 11/01/18 11/01/18 09:09 10:00 10:26 11:00 Pulse 80 82 85 86 Resp 28 26 25 28 B/P (MAP) 129/74 (92) 132/73 (92) Pulse Ox 99 99 99 98 O2 Delivery NIV Bilevel NIV Bilevel O2 Flow Rate 30.00 40.00 30.00 40.00 11/01/18 11/01/18 11/01/18 12:00 12:01 12:02 Temp 96.9 Pulse 84 Resp 23 B/P (MAP) 137/63 (87) Pulse Ox 100 100 O2 Delivery NIV Bilevel NIV Bilevel O2 Flow Rate 40.00 30.00 Capillary Refill : Less Than 3 Seconds Constitutional: other (somnolent but awakens and appears oriented; wearing BiPAP mask) HEENT: PERRL, EOMI, hearing is well preserved; No xanthelasmas are seen Neck: carotid pulses are 2 + bilaterally, with good upstrokes Respiratory: No accessory muscle use; other (fair bilat air entry, diminshed bs at bases, prolonged exp, exp wheezes) Cardiovascular: regular rate-rhythm, S1 and S2, systolic murmur (soft UYEN at card base) Gastrointestinal: No tender; soft; No guarding, No rebound; audible bowel sounds Extremities: No clubbing, No cyanosis, No significant edema Neurologic/Psychiatric: other (Mental state as described above, seems to be able to move all limbs equally) Skin: No rash on exposed areas, No ulcerations on exposed areas Data Review Labs Laboratory Tests 11/01/18 00:25: Blood Gas Puncture Site R RADIAL, Blood Gas Patient Temperature 98.1, Arterial Blood pH 7.42, Arterial Blood Partial Pressure CO2 34L, Arterial Blood Partial Pressure O2 111H, Arterial Blood HCO3 22L, Arterial Blood Total CO2 22.8, Arterial Blood Oxygen Saturation 99, Arterial Blood Base Excess -2.1, Kadeem Test POSITIVE, Blood Gas Ventilator Setting YES, Blood Gas Inspired Oxygen 15 11/01/18 00:42: White Blood Count 5.7, Red Blood Count 2.87L, Hemoglobin 8.8L, Hematocrit 25L, Mean Corpuscular Volume 85, Mean Corpuscular Hemoglobin 31, Mean Corpuscular Hemoglobin Concent 36, Red Cell Distribution Width 14.0, Platelet Count 109L, Mean Platelet Volume 11.0H, Neutrophils (%) (Auto) 57, Lymphocytes (%) (Auto) 13 , Monocytes (%) (Auto) 29H, Eosinophils (%) (Auto) 0, Basophils (%) (Auto) 0, Neutrophils # (Auto) 3.3, Lymphocytes # (Auto) 0.8L, Monocytes # (Auto) 1.7H, Eosinophils # (Auto) 0.0, Basophils # (Auto) 0.0, Neutrophils % (Manual) 63, Lymphocytes % (Manual) 13, Monocytes % (Manual) 23, Eosinophils % (Manual) 1, Prothrombin Time 20.8H, INR Comment 1.8H, Activated Partial Thromboplast Time 34 , Sodium Level 135, Potassium Level 3.5L, Chloride Level 103, Carbon Dioxide Level 20L, Anion Gap 12, Blood Urea Nitrogen 56H, Creatinine 2.01H, Estimat Glomerular Filtration Rate 32, BUN/Creatinine Ratio 28, Glucose Level 115H, Lactic Acid Level 1.45, Calcium Level 8.2L, Corrected Calcium 9.6, Magnesium Level 1.8, Total Bilirubin 1.2H, Aspartate Amino Transf (AST/SGOT) 18, Alanine Aminotransferase (ALT/SGPT) 25, Alkaline Phosphatase 55, Total Creatine Kinase 27L, Creatine Kinase MB 2.2, Myoglobin 167.2H, Troponin I 0.038, B-Type Natriuretic Peptide 134.3H, Total Protein 4.9L, Albumin 2.3L, TSH Bryan Testing 0.75, Digoxin Level 0.98 11/01/18 02:34: Urine Color YELLOW, Urine Clarity CLEAR, Urine pH 5, Urine Specific Sheldon 1.010L, Urine Protein 4+, Urine Glucose (UA) 1+H, Urine Ketones NEGATIVE, Urine Nitrite NEGATIVE, Urine Bilirubin NEGATIVE, Urine Urobilinogen NORMAL, Urine Leukocyte Esterase NEGATIVE, Urine RBC (Auto) 1+H, Urine RBC NONE, Urine WBC NONE, Urine Squamous Epithelial Cells 0-2, Urine Crystals PRESENTH, Urine Amorphous Sediment LARGE MIRACLE URATESH, Urine Bacteria TRACE, Urine Casts NONE, Urine Mucus NEGATIVE, Urine Culture Indicated NO 11/01/18 06:52: Glucometer 212H 11/01/18 11:54: Laboratory Tests 11/01/18 00:42 A/P-Cardiology Assessment/Admission Diagnosis Multifactorial shortness of breath: see below Ac on chronic diastolic CHF. Echo of 08/26/18: LVEF 50-55%, mod MR, mild to mod TR, mild AI, PASP 60 mmHg Ac exac of COPD due to lower resp tract infection Obesity with obesity-hypoventilation syndrome and VIPIN and pulmonary hypertension Chronic atrial fibrillation, rate controlled, stroke prophylaxis with warfarin Hypertension, controlled Acute on chronic renal insufficiency. 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 Last angiogram on July 29, 2018, following abnormal RANULFO, with deployment of 2 overlapping Supera stents in the left SFA 6.0150 and 6.0100 with excellent results and alloon angioplasty to the left tibial peroneal trunk that had severe stenosis/subtotal occlusion with excellent results. Diffuse atherosclerotic disease in the anterior tibial artery that is treated medically. Right lower extremity runoff showed moderate disease in the SFA and popliteal with very slow flow below the trifurcation Chronic venous insufficiency, seen by Dr. Castro in [place], status post ablation by Dr. Castro on the right side. 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
[2018-11-01] MEDS ORDERED: NON-FORMULARY MEDICATION 1 EA EA (Ondansetron HCl 4 MG) PO PRN (12:30)
[2018-11-01] MEDS ORDERED: NON-FORMULARY MEDICATION 1 EA EA (Acetaminophen (Tylenol Extra Strength) 1,000 MG) PO PRN (12:30)
[2018-11-01] MEDS ORDERED: ONDANSETRON 4 MG (ZOFRAN) ORAL DISSOLVE TAB PO PRN (12:45)
[2018-11-01] MEDS ORDERED: CEFEPIME 1 GM/NS 50 ML IV SCH ×2 (14:00)
--- NOTE | 2018-11-01 14:30 | NUR ---
BI PAP OFF, O2 ON PER NC AT 4 LITERS, O2 SAT 97 PERCENT, SOFT DIET TAKEN, CHIOMA WELL, FEED BY NURSE, AT BEDSIDE, CALL LIGHT WITHIN REACH. INCONT URINE
[2018-11-01] MEDS: FERROUS SULF 325 MG (IRON) TAB PO SCH (16:41)
[2018-11-01] MEDS: KCL 20 MEQ TAB (K-DUR) PO SCH (16:41)
[2018-11-01] MEDS ORDERED: TROUGH ORDER-PHARMACY XX NR (18:00)
[2018-11-01] MEDS: warFARin 5 MG (COUMADIN) TAB PO SCH (18:26)
[2018-11-01] MEDS ORDERED: NON-FORMULARY MEDICATION 1 EA EA (Insuln Asp Prt/Insulin Aspart (Novolog Mix 70-30 Flexpen SQ SCH (21:00)
[2018-11-01] MEDS ORDERED: NON-FORMULARY MEDICATION 1 EA EA (Ranitidine HCl 150 MG) PO SCH (21:00)
[2018-11-01] MEDS: CARVEDILOL 12.5 MG (COREG) TABLET PO SCH (22:00)
[2018-11-01] MEDS: ATORVASTATIN 10 MG (LIPITOR) TABLET PO SCH (22:00)
[2018-11-01] MEDS: FAMOTIDINE 20 MG (PEPCID) TABLET PO SCH (22:00)
[2018-11-01] MEDS: ASPIRIN E.C. 81 MG (ECOTRIN) TAB PO SCH (22:00)
[2018-11-01] MEDS: inSUlin Protamine/ASPart 70/30 1 UNIT/0.01 ML DOSE SC SCH (22:01)
[2018-11-01] MEDS: fentaNYL INJECTION 100 MCG/2 ML AMP IV PRN (22:01)
[2018-11-02] VITALS (14 sets, daily range): BP systolic 130–162; BP diastolic 63–84
[2018-11-02] MEDS: fentaNYL INJECTION 100 MCG/2 ML AMP IV PRN (01:44)
[2018-11-02] MEDS ORDERED: CEFEPIME 2 GM/NS 50 ML IVPB IV SCH ×2 (02:00)
[2018-11-02] MEDS: RT-ALBUTEROL/IPRATROPIUM 3 ML (DUONEB) VIAL INH SCH ×4 (02:26→21:55)
[2018-11-02 03:55] LABS: BASOPHILS % (AUTO) 0 % (0-10); EOSINOPHILS % (AUTO) 0 % (0-10); HEMATOCRIT 23 % (40-54); HEMOGLOBIN 7.8 G/DL (13.3-17.7); LYMPHOCYTES # (AUTO) 0.5 X 10^3 (1.0-4.0); LYMPHOCYTES % (AUTO) 14 % (12-44); MEAN CORPUSCULAR HEMOGLOBIN 30 PG (25-34); MEAN CORPUSCULAR HGB CONC 35 G/DL (32-36); MEAN CORPUSCULAR VOLUME 87 FL (80-99); MEAN PLATELET VOLUME 11.9 FL (7.4-10.4); MONOCYTES # (AUTO) 0.9 X 10^3 (0.0-1.0); MONOCYTES % (AUTO) 26 % (0-12); NEUTROPHILS # (AUTO) 2.2 X 10^3 (1.8-7.8); NEUTROPHILS % (AUTO) 60 % (42-75); PLATELET COUNT 99 10^3/uL (130-400); WHITE BLOOD COUNT 3.7 10^3/uL (4.3-11.0)
[2018-11-02 04:16] LABS: ALBUMIN 2.1 GM/DL (3.2-4.5); BILIRUBIN,TOTAL 0.6 MG/DL (0.1-1.0); CALCIUM 8.1 MG/DL (8.5-10.1); CREATININE SERUM 2.25 MG/DL (0.60-1.30); POTASSIUM 3.6 MMOL/L (3.6-5.0); TOTAL PROTEIN 4.5 GM/DL (6.4-8.2)
--- NOTE | 2018-11-02 05:35 | Pulmonary Progress Note ---
Subjective Time Seen by a Provider: 05:41 Subjective/Events-last exam Pt is doing better. Sepsis Event Evaluation Height, Weight, BMI Height: 5'8.00" Weight: 221lbs. 0.0oz. 100.556060ou; 33.5 BMI Method:Stated Focused Exam Lactate Level 11/01/18 00:42: Lactic Acid Level 1.45 Exam Exam Vital Signs Date Time Temp Pulse Resp B/P (MAP) Pulse Ox O2 Delivery O2 Flow Rate FiO2 11/02/18 04:00 Nasal Cannula 4.00 11/02/18 04:00 60 25 146/68 (94) 97 Nasal Cannula 4.00 11/02/18 03:00 69 28 142/63 (89) 99 Nasal Cannula 4.00 11/02/18 02:28 97 Nasal Cannula 4.00 11/02/18 02:00 72 27 145/84 (104) 98 Nasal Cannula 4.00 11/02/18 01:00 70 30 135/75 (95) 96 Nasal Cannula 4.00 11/02/18 01:00 74 11/02/18 00:15 70 25 130/66 (87) 96 Nasal Cannula 4.00 11/02/18 00:00 Nasal Cannula 4.00 11/01/18 23:00 84 19 155/82 (106) 96 Nasal Cannula 4.00 11/01/18 22:00 96 15 160/78 (105) 96 Nasal Cannula 4.00 11/01/18 21:00 98 Nasal Cannula 4.00 11/01/18 21:00 76 23 148/78 (101) 95 Nasal Cannula 4.00 11/01/18 20:00 Nasal Cannula 4.00 11/01/18 20:00 80 26 131/69 (89) 100 Nasal Cannula 4.00 11/01/18 19:04 92 Nasal Cannula 4.00 11/01/18 19:00 80 11/01/18 19:00 81 17 175/87 (116) 96 Nasal Cannula 4.00 11/01/18 18:00 69 27 147/74 (98) 99 Nasal Cannula 4.00 11/01/18 17:00 82 24 163/84 (110) 99 Nasal Cannula 4.00 11/01/18 16:00 97.6 82 21 148/85 (106) 98 Nasal Cannula 4.00 11/01/18 16:00 Nasal Cannula 4.00 11/01/18 15:15 92 Nasal Cannula 4.00 11/01/18 15:00 91 25 141/89 (106) 95 Nasal Cannula 4.00 11/01/18 14:36 Nasal Cannula 4.00 11/01/18 14:00 71 21 143/73 (96) 98 NIV Bilevel 40.00 11/01/18 13:00 86 11/01/18 12:02 100 NIV Bilevel 30.00 11/01/18 12:01 96.9 11/01/18 12:00 84 23 137/63 (87) 100 NIV Bilevel 40.00 11/01/18 11:00 86 28 132/73 (92) 98 NIV Bilevel 40.00 11/01/18 10:26 85 25 99 30.00 11/01/18 10:00 82 26 129/74 (92) 99 NIV Bilevel 40.00 11/01/18 09:09 80 28 99 30.00 11/01/18 09:00 87 27 143/83 (103) 100 NIV Bilevel 40.00 11/01/18 09:00 98 NIV Bilevel 30.00 11/01/18 08:00 100 NIV Bilevel 30.00 11/01/18 08:00 84 25 147/67 (93) 98 NIV Bilevel 40.00 11/01/18 08:00 97.4 11/01/18 07:00 89 25 119/63 (81) 92 NIV Bilevel 40.00 11/01/18 07:00 83 11/01/18 06:35 81 31 98 30.00 11/01/18 06:00 76 27 113/65 (81) 100 NIV Bilevel 40.00 I & O 11/02/18 06:59 Intake Total 1211 ml Output Total 575 ml Balance 636 ml Height & Weight Height: 5'8.00" Weight: 221lbs. 0.0oz. 100.575483nm; 33.5 BMI Method:Stated General Appearance: No Apparent Distress, WD/WN, Chronically ill HEENT: PERRL/EOMI, Normal ENT Inspection, Pharynx Normal Neck: Full Range of Motion, Normal Inspection, Non Tender, Supple, Carotid Bruit Respiratory: Chest Non Tender, No Accessory Muscle Use, No Respiratory Distress , Decreased Breath Sounds Cardiovascular: No Edema, No Gallop, No JVD, No Murmur, Normal Peripheral Pulses, Irregularly Irregular Capillary Refill: Less Than 3 Seconds Gastrointestinal: soft Extremity: Normal Capillary Refill, Normal Inspection, Normal Range of Motion, Non Tender, No Calf Tenderness, No Pedal Edema Neurologic/Psychiatric: Other (sleeping) Skin: Normal Color, Warm/Dry Lymphatic: No Adenopathy Results Lab Laboratory Tests 11/01/18 00:42 11/02/18 03:15 Assessment/Plan Assessment/Plan Acute on chronic respiratory failure -PT has required rehab at [facility] secondary to respiratory failure. [facility] - doubt PNA -D/C Cefepime and Gent -Will continue Azithromycin -Lasix Atelectasis -IS -Increase activity Afib Anemia, stable -Monitor Acute on chronic renal failure - baseline Cr since 07/16 is around 1.8 (Cr was normal 05/16) -Monitor close Dementia with home frequent falls -PT/OT KEIKO VALENZUELA DO Nov 02, 2018 05:35
--- NOTE | 2018-11-02 06:12 | Diagnostic Imaging Report ---
INDICATION: Dyspnea. Upright portable AP view of the chest is obtained with comparison made to study of one day earlier. There has been mild increased density in the left lung base which may be due to atelectasis and/or pneumonitis. Peripheral density in the right lung may be related to pleural thickening and/or effusion versus subpleural infiltrate. There is no evidence of pneumothorax. Multiple old right rib fractures are noted. IMPRESSION: Increasing left basilar atelectasis and/or pneumonitis with probable persistent right pleural fluid and/or thickening. No other significant change is identified. Dictated by: Dictated on workstation # [id number]
[2018-11-02] MEDS: inSUlin ASPART (NovoLOG) 1 UNIT/0.01 ML (CHARGE PER UNIT) SC SCH ×4 (06:18→21:39)
[2018-11-02] MEDS: KCL 20 MEQ TAB (K-DUR) PO SCH ×2 (06:18→16:34)
[2018-11-02] MEDS: AZITHROMYCIN 500 MG/NS 250 ML IVPB IV SCH ×2 (06:18)
[2018-11-02] MEDS: FERROUS SULF 325 MG (IRON) TAB PO SCH ×2 (06:18→16:34)
[2018-11-02] MEDS: DIGOXIN 0.125 MG (LANOXIN) TAB PO SCH (08:00)
[2018-11-02] MEDS: inSUlin Protamine/ASPart 70/30 1 UNIT/0.01 ML DOSE SC SCH ×2 (08:01→21:39)
[2018-11-02] MEDS: FUROSEMIDE 20 MG (LASIX) TAB PO SCH (08:01)
[2018-11-02] MEDS: LOSARTAN 100 MG (COZAAR) TABLET PO SCH (08:01)
[2018-11-02] MEDS: CARVEDILOL 12.5 MG (COREG) TABLET PO SCH ×2 (08:01→21:33)
[2018-11-02] MEDS: CLOPIDOGREL 75 MG (PLAVIX) TABLET PO SCH (08:01)
--- NOTE | 2018-11-02 08:41 | Progress Note (SOAP) ---
Subjective Subjective Date Seen by Provider: Nov 02, 2018 Time Seen by Provider: 08:40 83 yo M brought to ER because his was concerned about him falling down due to his altered mental status. He reports he feels better this AM; thinking decent and breathing well which he has been admitted a couple times in the past few weeks. Review of Systems General: No Chills, No Night Sweats HEENT: No Head Aches Pulmonary: No Dyspnea, No Cough Cardiovascular: No: Chest Pain Gastrointestinal: No: Nausea, Vomiting, Abdominal Pain Genitourinary: No Dysuria Musculoskeletal: No: neck pain Neurological: Weakness Objective Exam Vital Signs Vital Signs Date Time Temp Pulse Resp B/P (MAP) Pulse Ox O2 Delivery O2 Flow Rate FiO2 11/02/18 21:00 100 Nasal Cannula 4.00 11/02/18 20:38 97.3 75 16 162/77 (105) 100 Nasal Cannula 4.00 11/02/18 20:00 Nasal Cannula 4.00 11/02/18 19:00 90 11/02/18 16:25 96.2 79 18 141/77 (98) 100 Nasal Cannula 4.00 11/02/18 16:13 98 Nasal Cannula 4.00 11/02/18 16:00 98 Nasal Cannula 4.00 11/02/18 13:00 68 11/02/18 12:53 97.5 11/02/18 12:00 98 Nasal Cannula 4.00 11/02/18 10:51 Nasal Cannula 4.00 11/02/18 10:50 97.5 79 18 156/74 (101) 98 Nasal Cannula 4.00 11/02/18 10:00 65 24 140/79 (99) 97 Nasal Cannula 4.00 11/02/18 09:23 98 Nasal Cannula 4.00 11/02/18 09:00 76 32 145/79 (101) 99 Nasal Cannula 4.00 11/02/18 09:00 98 Nasal Cannula 4.00 I & O 11/03/18 07:00 Intake Total 1270 ml Output Total 400 ml Balance 870 ml General Appearance: No Apparent Distress, WD/WN, Chronically ill Eyes: Bilateral Eye Normal Inspection, Bilateral Eye PERRL HEENT: PERRL/EOMI, Normal ENT Inspection, Pharynx Normal Neck: Full Range of Motion, Normal Inspection, Non Tender, Supple, Carotid Bruit Respiratory: Chest Non Tender, No Accessory Muscle Use, No Respiratory Distress , Decreased Breath Sounds Cardiovascular: No Gallop; No Normal Peripheral Pulses; Other (regular rate, irregular rhythm) Gastrointestinal: Normal Bowel Sounds, No Organomegaly, No Pulsatile Mass, Non Tender, Soft Back: Normal Inspection, No CVA Tenderness, No Vertebral Tenderness Extremity: Normal Capillary Refill, Normal Inspection, Normal Range of Motion, Non Tender, No Calf Tenderness, Pedal Edema Neurologic/Psychiatric: Alert, Normal Mood/Affect, Other (sleeping) Skin: Normal Color, Warm/Dry Lymphatic: No Adenopathy Results Lab Laboratory Tests 11/01/18 11:54: Glucometer 196H 11/01/18 16:00: Glucometer 344H 11/01/18 17:59: Random Gentamicin Level 9.0 11/01/18 21:30: Glucometer 389H 11/02/18 03:15: White Blood Count 3.7L, Red Blood Count 2.60L, Hemoglobin 7.8L, Hematocrit 23L, Mean Corpuscular Volume 87, Mean Corpuscular Hemoglobin 30, Mean Corpuscular Hemoglobin Concent 35, Red Cell Distribution Width 14.0, Platelet Count 99L, Mean Platelet Volume 11.9H, Neutrophils (%) (Auto) 60, Lymphocytes (%) (Auto) 14 , Monocytes (%) (Auto) 26H, Eosinophils (%) (Auto) 0, Basophils (%) (Auto) 0, Neutrophils # (Auto) 2.2, Lymphocytes # (Auto) 0.5L, Monocytes # (Auto) 0.9, Eosinophils # (Auto) 0.0, Basophils # (Auto) 0.0, Sodium Level 134L, Potassium Level 3.6, Chloride Level 103, Carbon Dioxide Level 20L, Anion Gap 11, Blood Urea Nitrogen 60H, Creatinine 2.25H, Estimat Glomerular Filtration Rate 28, BUN/ Creatinine Ratio 27, Glucose Level 347H, Calcium Level 8.1L, Corrected Calcium 9.6, Total Bilirubin 0.6, Aspartate Amino Transf (AST/SGOT) 14, Alanine Aminotransferase (ALT/SGPT) 20, Alkaline Phosphatase 50, Troponin I 0.033, Total Protein 4.5L, Albumin 2.1L Microbiology 11/01/18 Blood Culture - Preliminary, Resulted No growth Assessment/Plan Assessment/Plan Assessment and Plan R40.4 Altered mental status- improved from admission Dispo: respiratory support - he is at his baseline. Still has weakness overall. Will monitor his hgb. Consider 1 unit transfusion if it continues to decline. Monitoring INR level. Case Management will be looking into placement- likely he will be discharged to [facility] for Nursing, PT/OT/ST orders. Problems: (1) Altered mental status Qualifiers: Qualified Codes: R40.4 - Transient alteration of awareness (2) Acute on chronic respiratory failure Qualifiers: Qualified Codes: J96.21 - Acute and chronic respiratory failure with hypoxia (3) Acute on chronic diastolic (congestive) heart failure (4) Chronic atrial fibrillation (5) Chronic renal insufficiency Qualifiers: Qualified Codes: N18.3 - Chronic kidney disease, stage 3 (moderate) (6) Anemia Qualifiers: Qualified Codes: D64.9 - Anemia, unspecified (7) IDDM (insulin dependent diabetes mellitus) (8) Physical debility (9) Falls frequently (10) Anticoagulant long-term use (11) HTN (hypertension) Qualifiers: Qualified Codes: I10 - Essential (primary) hypertension Clinical Quality Measures DVT/VTE Risk/Contraindication: Risk Factor Score Per Nursin RFS Level Per Nursing on Admit: 4+=Very High RUBEN SANCHEZ MD Nov 02, 2018 08:41
--- NOTE | 2018-11-02 09:05 | Cardiology Progress Note ---
Subjective Date Seen by Provider: Nov 02, 2018 Time Seen by Provider: 09:00 Subjective/Events-last exam patient is laying down in bed, reporting improvement in his breathing. Still having some pedal edema and shortness of breath. Review of Systems General: No Chills, No Night Sweats; Fatigue, Malaise; No Appetite, No Other HEENT: No Head Aches, No Visual Changes, No Eye Pain, No Ear Pain, No Dysphasia , No Sinus Congestion, No Post Nasal Drip, No Sore Throat, No Other Pulmonary: Dyspnea; No Cough, No Pleuritic Chest Pain, No Other Cardiovascular: Edema; No: Chest Pain, Palpitations, Orthopnea, Paroxysmal Noc. Dyspnea, Lt Headedness, Other Focused Exam Lactate Level 11/01/18 00:42: Lactic Acid Level 1.45 Objective-Cardiology Exam Last Set of Vital Signs Vital Signs 11/01/18 11/02/18 11/02/18 03:55 06:00 08:00 Temp 97.6 Pulse 68 Resp 24 B/P (MAP) 132/76 (94) Pulse Ox 99 O2 Delivery Nasal Cannula O2 Flow Rate 4.00 FiO2 40 Capillary Refill : Less Than 3 Seconds I&O Intake and Output 11/02/18 00:00 Intake Total 1211 ml Output Total 575 ml Balance 636 ml Intake Oral 850 ml IV Total 361 ml Output Urine Total 575 ml # Voids 4 Daily Weight Change No No General: Alert, Oriented X3, Cooperative HEENT: Atraumatic, PERRLA Neck: Supple, No JVD, No Thyromegaly Lungs: Clear to Auscultation, Normal Air Movement Heart: Regular Rate, Normal S1, Normal S2, No Murmurs Abdomen: Normal Bowel Sounds, Soft, No Tenderness, No Hepatosplenomegaly, No Masses Extremities: No Clubbing, No Cyanosis, Normal Pulses, No Tenderness/Swelling, Other (trace edema) Skin: No Rashes, No Breakdown, No Significant Lesion Neuro: Normal Speech, Normal Tone, Sensation Intact Psych/Mental Status: Mental Status NL, Mood NL Results Lab Laboratory Tests 11/02/18 03:15 A/P-Cardiology Admission Diagnosis Shortness of breath Congestive heart failure, acute on chronic left ventricular systolic dysfunction COPD Atrial fibrillation Assessment/Plan Shortness of breath, acute exacerbation of COPD, reporting improvement at this time, managed by medical team. Congestive heart failure, acute on chronic left ventricular systolic dysfunction , nonischemic cardiomyopathy, ejection fraction 45-50 percent with mild hypokinesia at the anterior wall. No previous history of coronary artery disease, had borderline stress test in February 2018 with mild decreased uptake at the mid to apical inferior wall with mild reversibility. Normal left ventricular function at that time. Continue to monitor Recent pneumonia, managed by primary care team Chronic atrial fibrillation, rate controlled. Continue to monitor [id number] score is 4, yearly risk of stroke without oral anticoagulation is 4 percent. Maintained on Coumadin, hold Coumadin for now and monitor INR Hypertension, continue on current medication monitor blood pressure Acute on chronic renal insufficiency, continue to monitor renal function Peripheral vascular disease, extensive disease, multiple interventions in the past, last procedure was done on July 29, 2018 after having abnormal RANULFO with deployment of 2 overlapping Supera stents in the left SFA 6.0150 and 6.0 100 with excellent results and reduction of severe stenosis into no residual stenosis. Balloon angioplasty to the left tibial peroneal trunk that has severe stenosis/subtotal occlusion with excellent results and mild residual recoil. Diffuse atherosclerotic disease in the anterior tibial artery that is treated medically. Right lower extremity runoff showed moderate disease in the SFA and popliteal with very slow flow below the trifurcation. Maintained on aspirin and Plavix, wound on his left foot is healing Chronic venous insufficiency, seen by Dr. Castro in [place], status post ablation by Dr. Castro on the right side. Hyperlipidemia, monitor lipids COPD, Obstructive sleep apnea, history of prolonged respiratory failure and transferred to [facility], managed by Dr. Herring Diabetes mellitus. Followed and managed by primary care physician. Continue to monitor Diabetic neuropathy. Mild bilateral carotid stenosis, last ultrasound was done in June 2018. Continue to monitor. Clinical Quality Measures DVT/VTE Risk/Contraindication: Risk Factor Score Per Nursin RFS Level Per Nursing on Admit: 4+=Very High KEELEY ROSSI MD Nov 02, 2018 09:05
[2018-11-02] MEDS ORDERED: CHOL200014 PO (10:39)
--- NOTE | 2018-11-02 10:39 | NUR ---
patient to floor at this time, report received from Mariama Majano RN at this time.
--- NOTE | 2018-11-02 10:40 | NUR ---
pt to room 421 via wheel chair. introduced to room and call system. placed in chair at bedside. in room with pt at this time. bedside report given to Nita COSME
[2018-11-02] MEDS ORDERED: WARF-48 PO ×2 (10:50)
--- NOTE | 2018-11-02 10:50 | NUR ---
Physical assessment completed at this time, and this RN agrees with the previous RN's assessment. This RN will cont to monitor this patient throughout the remainder of this shift.
[2018-11-02] MEDS ORDERED: FURO20TA4 PO (10:53)
--- NOTE | 2018-11-02 10:58 | NUR ---
Patient was not sure of what he took. Called [facility] to verify medication. They did not fill the Novolog 70/30. Went back in to check to see if he took insulin and his was there. She stated he does take it they get it fill some where else.
--- NOTE | 2018-11-02 12:23 | Physical Therapy Evaluation ---
PT Evaluation-General Medical Diagnosis Admission Date Nov 01, 2018 at 02:04 Medical Diagnosis: Acute Respiratory Failure, Frequent Falls Onset Date: Nov 01, 2018 Therapy Diagnosis Therapy Diagnosis: decreased activity tolerance, decreased mobility Height/Weight Height (Feet): 5 Height (Inches): 8.00 Weight (Pounds): 227 Weight (Ounces): 0.0 Precautions Precautions/Isolations: Fall Prevention, Standard Precautions Weight Bear Status Right Lower Extremity: Right Full Weight Bearing Left Lower Extremity: Left Full Weight Bearing Referral Physician: Hugo Alexander MD Reason for Referral: Evaluation/Treatment Medical History Pertinent Medical History: Atrial Fib, COPD, DM, Dementia, GERD, HTN, Macular Degenertion, Neuropathy, PVD, Renal Insufficiency, Smoking Current History Pt to ED via EMS c/o weakness and SOB. reports decreased mentation. Social History Home: Single Level Current Living Status: Spouse Entry Into Home: Ramp Prior/Core FIM Prior Level of Function Therapy Code Descriptions/Definitions Functional [place] Measure: 0=Not Assessed/NA 4=Minimal Assistance 1=Total Assistance 5=Supervision or Setup 2=Maximal Assistance 6=Modified [place] 3=Moderate Assistance 7=Complete [place] Therapy Quality Codes: 6 Independent with activity with or without an assistive device 5 Patient requires set up or clean up by helper. Patient completes activity by themselves 4 Supervision or touching assist (CGA). [place] provide cues , steadying assist 3 The helper provides less than half the effort to complete the activity 2 The helper provides more than half the effort to complete the activity 1 Dependent. The helper does all the effort to complete an activity 7 Patient refused to complete or attempt activity 9 The patient did not perform the activity before the current illness or injury 88 Not attempted due to Medical conditions or safety concerns Functional Abilities and Goals: Independent: Patient completed the activities by him/herself, with or without an assistive device, with no assistance from a helper. Needed Some Help: Patient needed partial assistance from another person to complete activities. Dependent: A helper completed the activities for the patient. Unknown: Not Applicable: Bed Mobility: 6 Transfers (B,C,W/C) (FIM): 6 Gait: 6 Indoor Mobility (Ambulation): Independent Prior Devices Use: Walker Prior Device Use: FWW PT Evaluation-Current Subjective Pt in recliner and agrees to PT. Pt reports that he does have pain. Pain Numeric Pain Scale: 5-Moderate Pain Location Body Site: Genital Comment: Rubbing due to testicle enlargement Pt/Family Goals Pt to return home Objective Patient Orientation: Person, Place, Situation, Normal For Age Attachments: Oxygen (4.5L) ROM/Strength ROM Lower Extremities WNL Strength Lower Extremities Bilateral gross motor 4/5 Integumentary/Posture Bowel Incontinence: No Bladder Incontinence: No Sensory Vision: Functional Hearing: Impaired Sensation Right Lower Extremit: Impaired Sensation Left Lower Extremity: Impaired Transfers Therapy Code Descriptions/Definitions Functional [place] Measure: 0=Not Assessed/NA 4=Minimal Assistance 1=Total Assistance 5=Supervision or Setup 2=Maximal Assistance 6=Modified [place] 3=Moderate Assistance 7=Complete [place] Transfers (B, C, W/C) (FIM): 5 Scootin Sit to/from Stand: 5 Gait Mode of Locomotion: Walk Anticipated Mode of Locomotion: Walk Gait (FIM): 4 Distance (FIM): 3=150 ft Distance: 300' Gait Level of Assist: 4 Gait Persons Needed: 1 Gait Assistive Device: FWW Balance Sitting Static: Good Sitting Dynamic: Good Standing Static: Good Standing Dynamic: Good Assessment/Needs Pt was able to perform transfer sit<>stand to FWW SBA. Pt was able to amb 300' with FWW and CGA O2 5L. Pt did appear to be fatigued at end of tx. Pt returned to room and is in recliner with all needs met. Rehab Potential: Fair Post Rehab Potential-Barriers: Frequent hospital admissions. Co-morbidities PT Short Term Goals Short Term Goals Time Frame: Nov 09, 2018 Transfers (B,C,W/C) (FIM): 6 Gait (FIM): 5 Distance (FIM): 3=150 ft Gait Distance Comment: 500' Gait Level of Assist: 5 Gait Assistive Device: FWW PT Plan Problem List Problem List: Activity Tolerance, Functional Strength, Safety, Balance, Gait, Transfer, Bed Mobility Treatment/Plan Treatment Plan: Continue Plan of Care Treatment Plan: Bed Mobility, Education, Functional Activity Amanda, Functional Strength, Gait, Safety, Therapeutic Exercise, Transfers Treatment Duration: Nov 09, 2018 Frequency: 6 times per week Estimated Hrs Per Day: .25 hour per day Patient and/or Family Agrees t: Yes Safety Risks/Education Patient Education: Gait Training, Correct Positioning, Safety Issues Teaching Recipient: Patient, Family Teaching Methods: Demonstration, Discussion Discharge Recommendations Therapy D/C Recommendations: Home w/ Family Support Equpiment Recommendations-D/C: Front Wheeled Walker Time/GCodes Time In: 1130 Time Out: 1145 Total Billed Treatment Time: 15 Total Billed Treatment 1 visit [facility] 15 min NIKHIL LEBLANC PT Nov 02, 2018 12:23
[2018-11-02] MEDS: TROSPIUM 20 MG (SANCTURA) TAB PO SCH (16:34)
--- NOTE | 2018-11-02 16:42 | NUR ---
patient BS 269 this RN was supposed to give the patient 5 units per SSI "A" but patient requested that he only get 3 units. 3 units given by this RN per patient request.
--- NOTE | 2018-11-02 16:44 | NUR ---
CM/SS, respond to consult regarding half-way placement when discharged. Visited with patient's spouse, she has requested referral with [facility] [place]. Patient has history of stay there in the recent past, she has already spoke to their admissions coord about this return. Will complete referral in a.m.
[2018-11-02] MEDS ORDERED: warFARin 5 MG (COUMADIN) TAB PO SCH (18:00)
--- NOTE | 2018-11-02 18:31 | Wound Care Assessment ---
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 Needs protective boot off- loading. Dressing orders written. Will follow-up in out-patient clinic. Past Medical History: Admits Diabetes Type II, Admits Heart Disease, Admits Peripheral Artery Disease Smoking Status: Former Smoker Recreational Drug Use: No Alcohol Use: Denies Use Exam Vital Signs Date Time Temp Pulse Resp B/P (MAP) Pulse Ox O2 Delivery O2 Flow Rate FiO2 11/02/18 16:25 96.2 79 18 141/77 (98) 100 Nasal Cannula 4.00 11/01/18 03:55 40 Capillary Refill : Less Than 3 Seconds Results Laboratory Tests 11/01/18 21:30: Glucometer 389H 11/02/18 03:15: White Blood Count 3.7L, Red Blood Count 2.60L, Hemoglobin 7.8L, Hematocrit 23L, Mean Corpuscular Volume 87, Mean Corpuscular Hemoglobin 30, Mean Corpuscular Hemoglobin Concent 35, Red Cell Distribution Width 14.0, Platelet Count 99L, Mean Platelet Volume 11.9H, Neutrophils (%) (Auto) 60, Lymphocytes (%) (Auto) 14 , Monocytes (%) (Auto) 26H, Eosinophils (%) (Auto) 0, Basophils (%) (Auto) 0, Neutrophils # (Auto) 2.2, Lymphocytes # (Auto) 0.5L, Monocytes # (Auto) 0.9, Eosinophils # (Auto) 0.0, Basophils # (Auto) 0.0, Sodium Level 134L, Potassium Level 3.6, Chloride Level 103, Carbon Dioxide Level 20L, Anion Gap 11, Blood Urea Nitrogen 60H, Creatinine 2.25H, Estimat Glomerular Filtration Rate 28, BUN/ Creatinine Ratio 27, Glucose Level 347H, Calcium Level 8.1L, Corrected Calcium 9.6, Total Bilirubin 0.6, Aspartate Amino Transf (AST/SGOT) 14, Alanine Aminotransferase (ALT/SGPT) 20, Alkaline Phosphatase 50, Troponin I 0.033, Total Protein 4.5L, Albumin 2.1L 11/02/18 11:05: Glucometer 279H 11/02/18 16:37: Glucometer 269H Microbiology 11/01/18 Blood Culture - Preliminary, Resulted No growth Microbiology 11/01/18 Blood Culture - Preliminary, Resulted No growth 11/01/18 Blood Culture - Preliminary, Resulted No growth JONATHAN CROUCH MD Nov 02, 2018 18:31
[2018-11-02] MEDS: ATORVASTATIN 10 MG (LIPITOR) TABLET PO SCH (21:33)
[2018-11-02] MEDS: FAMOTIDINE 20 MG (PEPCID) TABLET PO SCH (21:34)
[2018-11-02] MEDS: ASPIRIN E.C. 81 MG (ECOTRIN) TAB PO SCH (21:34)
[2018-11-03] VITALS: BP 176/81
[2018-11-03] MEDS: RT-ALBUTEROL/IPRATROPIUM 3 ML (DUONEB) VIAL INH SCH ×4 (03:40→23:12)
[2018-11-03 04:00] VITALS: BP 158/78
[2018-11-03] MEDS: FERROUS SULF 325 MG (IRON) TAB PO SCH ×2 (06:26→17:59)
[2018-11-03] MEDS: inSUlin ASPART (NovoLOG) 1 UNIT/0.01 ML (CHARGE PER UNIT) SC SCH ×4 (06:26→20:32)
[2018-11-03] MEDS: KCL 20 MEQ TAB (K-DUR) PO SCH ×2 (06:26→17:59)
[2018-11-03] MEDS: TROSPIUM 20 MG (SANCTURA) TAB PO SCH ×2 (06:26→16:44)
--- NOTE | 2018-11-03 07:36 | Cardiology Progress Note ---
Subjective Date Seen by Provider: Nov 03, 2018 Time Seen by Provider: 07:34 Subjective/Events-last exam Patient is in bed, feeling better, no new complaint Review of Systems General: No Chills, No Night Sweats; Fatigue; No Malaise, No Appetite, No Other HEENT: No Head Aches, No Visual Changes, No Eye Pain, No Ear Pain, No Dysphasia , No Sinus Congestion, No Post Nasal Drip, No Sore Throat, No Other Pulmonary: Dyspnea; No Cough, No Pleuritic Chest Pain, No Other Cardiovascular: No: Chest Pain, Palpitations, Orthopnea, Paroxysmal Noc. Dyspnea, Edema, Lt Headedness, Other Focused Exam Lactate Level 11/01/18 00:42: Lactic Acid Level 1.45 Objective-Cardiology Exam Last Set of Vital Signs Vital Signs 11/01/18 03:55 FiO2 40 Capillary Refill : Less Than 3 Seconds I&O Intake and Output 11/03/18 00:00 Intake Total 1640 ml Output Total 400 ml Balance 1240 ml Intake Oral 1640 ml Output Urine Total 400 ml # Voids 7 General: Alert, Oriented X3, Cooperative HEENT: Atraumatic, PERRLA Neck: Supple, No JVD, No Thyromegaly Lungs: Clear to Auscultation, Normal Air Movement Heart: Regular Rate, Normal S1, Normal S2, No Murmurs Abdomen: Normal Bowel Sounds, Soft, No Tenderness, No Hepatosplenomegaly, No Masses Extremities: No Clubbing, No Cyanosis, Normal Pulses, No Tenderness/Swelling, Other (trace edema) Skin: No Rashes, No Breakdown, No Significant Lesion Neuro: Normal Speech, Normal Tone, Sensation Intact Psych/Mental Status: Mental Status NL, Mood NL Results Lab Laboratory Tests Test 11/02/18 11:05 11/02/18 16:37 11/02/18 20:59 11/03/18 05:30 Range/Units Glucometer 279 H 269 H 345 H 226 H 70-110 MG/DL A/P-Cardiology Admission Diagnosis Shortness of breath Congestive heart failure, acute on chronic left ventricular systolic dysfunction COPD Atrial fibrillation Assessment/Plan Shortness of breath, acute exacerbation of COPD, reporting improvement at this time, managed by medical team. Congestive heart failure, acute on chronic left ventricular systolic dysfunction , nonischemic cardiomyopathy, ejection fraction 45-50 percent with mild hypokinesia at the anterior wall. No previous history of coronary artery disease, had borderline stress test in February 2018 with mild decreased uptake at the mid to apical inferior wall with mild reversibility. Normal left ventricular function at that time. Continue to monitor Recent pneumonia, managed by primary care team Chronic atrial fibrillation, rate controlled, continue on current medication and monitor as an outpatient [id number] score is 4, yearly risk of stroke without oral anticoagulation is 4 percent. Maintained on Coumadin, continue to monitor INR as an outpatient Anemia, worse today, monitor H&H as an outpatient Hypertension, continue on current medication monitor blood pressure Acute on chronic renal insufficiency, continue to monitor renal function Peripheral vascular disease, extensive disease, multiple interventions in the past, last procedure was done on July 29, 2018 after having abnormal RANULFO with deployment of 2 overlapping Supera stents in the left SFA 6.0150 and 6.0 100 with excellent results and reduction of severe stenosis into no residual stenosis. Balloon angioplasty to the left tibial peroneal trunk that has severe stenosis/subtotal occlusion with excellent results and mild residual recoil. Diffuse atherosclerotic disease in the anterior tibial artery that is treated medically. Right lower extremity runoff showed moderate disease in the SFA and popliteal with very slow flow below the trifurcation. Maintained on aspirin and Plavix, wound on his left foot is healing, seen by Dr. Farrell Chronic venous insufficiency, seen by Dr. Castro in [place], status post ablation by Dr. Castro on the right side. Hyperlipidemia, monitor lipids COPD, Obstructive sleep apnea, history of prolonged respiratory failure and transferred to [facility], managed by Dr. Herring Diabetes mellitus. Followed and managed by primary care physician. Continue to monitor Diabetic neuropathy. Mild bilateral carotid stenosis, last ultrasound was done in June 2018. Continue to monitor. Clinical Quality Measures DVT/VTE Risk/Contraindication: Risk Factor Score Per Nursin RFS Level Per Nursing on Admit: 4+=Very High KEELEY ROSSI MD Nov 03, 2018 07:35
[2018-11-03 07:42] LABS: BASOPHILS % (AUTO) 0 % (0-10); EOSINOPHILS % (AUTO) 0 % (0-10); HEMATOCRIT 25 % (40-54); HEMOGLOBIN 8.8 G/DL (13.3-17.7); LYMPHOCYTES # (AUTO) 0.7 X 10^3 (1.0-4.0); LYMPHOCYTES % (AUTO) 13 % (12-44); MEAN CORPUSCULAR HEMOGLOBIN 31 PG (25-34); MEAN CORPUSCULAR HGB CONC 36 G/DL (32-36); MEAN CORPUSCULAR VOLUME 87 FL (80-99); MEAN PLATELET VOLUME 10.7 FL (7.4-10.4); MONOCYTES # (AUTO) 2.3 X 10^3 (0.0-1.0); MONOCYTES % (AUTO) 39 % (0-12); NEUTROPHILS # (AUTO) 2.8 X 10^3 (1.8-7.8); NEUTROPHILS % (AUTO) 48 % (42-75); PLATELET COUNT 138 10^3/uL (130-400); RED CELL DISTRIBUTION WIDTH 14.3 % (10.0-14.5); WHITE BLOOD COUNT 5.8 10^3/uL (4.3-11.0)
[2018-11-03 07:57] LABS: ALBUMIN 2.2 GM/DL (3.2-4.5); CALCIUM 8.5 MG/DL (8.5-10.1); CREATININE SERUM 2.01 MG/DL (0.60-1.30); MAGNESIUM 1.6 MG/DL (1.8-2.4); PHOSPHORUS 2.6 MG/DL (2.3-4.7); POTASSIUM 3.8 MMOL/L (3.6-5.0)
[2018-11-03 08:06] VITALS: BP 149/72
[2018-11-03] MEDS: CARVEDILOL 12.5 MG (COREG) TABLET PO SCH ×2 (08:12→20:31)
[2018-11-03] MEDS: CLOPIDOGREL 75 MG (PLAVIX) TABLET PO SCH (08:12)
[2018-11-03] MEDS: DIGOXIN 0.125 MG (LANOXIN) TAB PO SCH (08:12)
[2018-11-03] MEDS: LOSARTAN 100 MG (COZAAR) TABLET PO SCH (08:12)
[2018-11-03] MEDS: AZITHROMYCIN 250 MG TAB (ZITHROMAX) PO SCH (08:13)
[2018-11-03] MEDS: FUROSEMIDE 20 MG (LASIX) TAB PO SCH (08:13)
[2018-11-03] MEDS: inSUlin Protamine/ASPart 70/30 1 UNIT/0.01 ML DOSE SC SCH ×2 (08:13→20:32)
--- NOTE | 2018-11-03 08:15 | Pulmonary Progress Note ---
Subjective Time Seen by a Provider: 08:15 Sepsis Event Evaluation Height, Weight, BMI Height: 5'8.00" Weight: 213lbs. 8.0oz. 96.831423hk; 33.5 BMI Method:Stated Focused Exam Lactate Level 11/01/18 00:42: Lactic Acid Level 1.45 Exam Exam Vital Signs Date Time Temp Pulse Resp B/P (MAP) Pulse Ox O2 Delivery O2 Flow Rate FiO2 11/03/18 08:06 97.0 96 16 149/72 (97) 98 Nasal Cannula 4.00 11/03/18 07:49 Nasal Cannula 4.00 11/03/18 07:16 84 11/03/18 04:00 98.0 75 16 158/78 (104) 97 Nasal Cannula 4.00 11/03/18 04:00 97 Nasal Cannula 4.00 11/03/18 03:40 98 Nasal Cannula 4.00 11/03/18 01:00 63 11/03/18 00:00 97.7 90 16 176/81 (112) 100 Nasal Cannula 4.00 11/03/18 00:00 100 Nasal Cannula 4.00 11/02/18 21:55 100 Nasal Cannula 4.00 11/02/18 21:00 100 Nasal Cannula 4.00 11/02/18 20:38 97.3 75 16 162/77 (105) 100 Nasal Cannula 4.00 11/02/18 20:00 Nasal Cannula 4.00 11/02/18 19:00 90 11/02/18 16:25 96.2 79 18 141/77 (98) 100 Nasal Cannula 4.00 11/02/18 16:13 98 Nasal Cannula 4.00 11/02/18 16:00 98 Nasal Cannula 4.00 11/02/18 13:00 68 11/02/18 12:53 97.5 11/02/18 12:00 98 Nasal Cannula 4.00 11/02/18 10:51 Nasal Cannula 4.00 11/02/18 10:50 97.5 79 18 156/74 (101) 98 Nasal Cannula 4.00 11/02/18 10:00 65 24 140/79 (99) 97 Nasal Cannula 4.00 11/02/18 09:23 98 Nasal Cannula 4.00 11/02/18 09:00 76 32 145/79 (101) 99 Nasal Cannula 4.00 11/02/18 09:00 98 Nasal Cannula 4.00 I & O 11/03/18 07:00 Intake Total 1270 ml Output Total 400 ml Balance 870 ml Height & Weight Height: 5'8.00" Weight: 213lbs. 8.0oz. 96.630343im; 33.5 BMI Method:Stated General Appearance: No Apparent Distress, WD/WN, Chronically ill HEENT: PERRL/EOMI, Normal ENT Inspection, Pharynx Normal Neck: Full Range of Motion, Normal Inspection, Non Tender, Supple, Carotid Bruit Respiratory: Chest Non Tender, No Accessory Muscle Use, No Respiratory Distress , Decreased Breath Sounds Cardiovascular: No Edema, No Gallop, No JVD, No Murmur, Normal Peripheral Pulses, Irregularly Irregular Capillary Refill: Less Than 3 Seconds Gastrointestinal: soft Extremity: Normal Capillary Refill, Normal Inspection, Normal Range of Motion, Non Tender, No Calf Tenderness, No Pedal Edema Neurologic/Psychiatric: Other (sleeping) Skin: Normal Color, Warm/Dry Lymphatic: No Adenopathy Results Lab Laboratory Tests 11/02/18 03:15 11/03/18 07:30 Assessment/Plan Assessment/Plan Acute on chronic respiratory failure -PT has required rehab at [facility] secondary to respiratory failure. CHFAE - doubt PNA - continue Azithromycin -Lasix Atelectasis -IS -Increase activity Afib Anemia, stable -Monitor Acute on chronic renal failure - baseline Cr since 07/16 is around 1.8 (Cr was normal 05/16) -Monitor close Dementia with home frequent falls -PT/OT KEIKO VALENZUELA DO Nov 03, 2018 08:15
[2018-11-03] MEDS: MAGNESIUM OXIDE (MAG-OX)400 MG TAB PO SCH ×2 (08:57→17:59)
--- NOTE | 2018-11-03 11:04 | NUR ---
CM/SS. Referral completed with [facility], await confirmation of acceptance for admission when medically released from hospital. CARE Assessment likely current, will explore.
--- NOTE | 2018-11-03 11:22 | Physical Therapy Daily Note ---
PT Daily Note-Current Subjective Patient report he is going to the [facility] on this date. Agrees to PT. Mental Status Patient Orientation: Normal For Age Attachments: Oxygen Transfers Therapy Code Descriptions/Definitions Functional [place] Measure: 0=Not Assessed/NA 4=Minimal Assistance 1=Total Assistance 5=Supervision or Setup 2=Maximal Assistance 6=Modified [place] 3=Moderate Assistance 7=Complete [place] Therapy Quality Codes: 6 Independent with activity with or without an assistive device 5 Patient requires set up or clean up by helper. Patient completes activity by themselves 4 Supervision or touching assist (CGA). Abbott provide cues , steadying assist 3 The helper provides less than half the effort to complete the activity 2 The helper provides more than half the effort to complete the activity 1 Dependent. The helper does all the effort to complete an activity 7 Patient refused to complete or attempt activity 9 The patient did not perform the activity before the current illness or injury 88 Not attempted due to Medical conditions or safety concerns Transfers (B, C, W/C) (FIM): 5 Scootin Rollin Supine to/from Sit: 5 Sit to/from Stand: 5 Weight Bearing Right Lower Extremity: Right Full Weight Bearing Left Lower Extremity: Left Full Weight Bearing Gait Training Gait (FIM): 4 Distance (FIM): 3=150 ft Distance: 225' Gait Level of Assist: 4 Gait Persons Needed: 1 Gait Assistive Device: FWW multiple standing recovery periods due to SOA with O2 4L NC in place Assessment Patient remains up in recliner with needs met. PT to dismiss patient from services at this time. PT Short Term Goals Short Term Goals Time Frame: Nov 09, 2018 Transfers (B,C,W/C) (FIM): 6 Gait (FIM): 5 Distance (FIM): 3=150 ft Gait Distance Comment: 500' Gait Level of Assist: 5 Gait Assistive Device: FWW PT Plan Treatment/Plan Treatment Plan: Discontinue PT Treatment Plan: Bed Mobility, Education, Functional Activity Amanda, Functional Strength, Gait, Safety, Therapeutic Exercise, Transfers Treatment Duration: Nov 09, 2018 Frequency: 6 times per week Estimated Hrs Per Day: .25 hour per day Patient and/or Family Agrees t: Yes Time/GCodes Time In: 1035 Time Out: 1045 Total Billed Treatment Time: 10 Total Billed Treatment 1 visit FA 10 min NIKHIL LEBLANC PT Nov 03, 2018 11:22
[2018-11-03 12:00] VITALS: BP 121/94
--- NOTE | 2018-11-03 14:44 | Progress Note (SOAP) ---
Subjective Subjective Date Seen by Provider: Nov 03, 2018 Time Seen by Provider: 07:55 83 yo M reports doing much better. He is agreeable to go to [facility] SN[facility] for PT. Review of Systems General: No Chills, No Night Sweats HEENT: No Head Aches Pulmonary: No Dyspnea, No Cough Cardiovascular: No: Chest Pain Gastrointestinal: No: Nausea, Vomiting, Abdominal Pain Genitourinary: No Dysuria Musculoskeletal: No: neck pain Neurological: Weakness Objective Exam Vital Signs Vital Signs - First Documented 11/01/18 11/01/18 11/01/18 00:10 00:11 03:55 Temp 98.1 Pulse 86 Resp 22 B/P (MAP) 136/87 (103) Pulse Ox 97 O2 Delivery Non Rebreather O2 Flow Rate 6.00 FiO2 40 Capillary Refill : Less Than 3 Seconds General Appearance: No Apparent Distress, WD/WN, Chronically ill Eyes: Bilateral Eye Normal Inspection, Bilateral Eye PERRL HEENT: PERRL/EOMI, Normal ENT Inspection, Pharynx Normal Neck: Full Range of Motion, Normal Inspection, Non Tender, Supple, Carotid Bruit Respiratory: Chest Non Tender, No Accessory Muscle Use, No Respiratory Distress , Decreased Breath Sounds Cardiovascular: No Gallop; No Normal Peripheral Pulses; Other (regular rate, irregular rhythm) Gastrointestinal: Normal Bowel Sounds, No Organomegaly, No Pulsatile Mass, Non Tender, Soft Back: Normal Inspection, No CVA Tenderness, No Vertebral Tenderness Extremity: Normal Capillary Refill, Normal Inspection, Normal Range of Motion, Non Tender, No Calf Tenderness, Pedal Edema Neurologic/Psychiatric: Alert, Normal Mood/Affect, Other (sleeping) Skin: Normal Color, Warm/Dry Lymphatic: No Adenopathy Results Lab Laboratory Tests 11/02/18 16:37: Glucometer 269H 11/02/18 20:59: Glucometer 345H 11/03/18 05:30: Glucometer 226H 11/03/18 07:30: White Blood Count 5.8, Red Blood Count 2.86L, Hemoglobin 8.8L, Hematocrit 25L, Mean Corpuscular Volume 87, Mean Corpuscular Hemoglobin 31, Mean Corpuscular Hemoglobin Concent 36, Red Cell Distribution Width 14.3, Platelet Count 138, Mean Platelet Volume 10.7H, Neutrophils (%) (Auto) 48, Lymphocytes (%) (Auto) 13 , Monocytes (%) (Auto) 39H, Eosinophils (%) (Auto) 0, Basophils (%) (Auto) 0, Neutrophils # (Auto) 2.8, Lymphocytes # (Auto) 0.7L, Monocytes # (Auto) 2.3H, Eosinophils # (Auto) 0.0, Basophils # (Auto) 0.0, Sodium Level 134L, Potassium Level 3.8, Chloride Level 102, Carbon Dioxide Level 22, Anion Gap 10, Blood Urea Nitrogen 53H, Creatinine 2.01H, Estimat Glomerular Filtration Rate 32, BUN/ Creatinine Ratio 26, Glucose Level 229H, Calcium Level 8.5, Phosphorus Level 2.6 , Magnesium Level 1.6L, Albumin 2.2L 11/03/18 11:14: Glucometer 284H Microbiology 11/01/18 Blood Culture - Preliminary, Resulted No growth Assessment/Plan Assessment/Plan Assessment and Plan R40.4 Altered mental status- improved from admission Dispo: respiratory support - he is at his baseline. Still has weakness overall. Will monitor his hgb. Consider 1 unit transfusion if it continues to decline. Will recheck hgb in 1 week. Monitoring INR level. Case Management will be looking into placement- plan to discharge to [facility] for Nursing, PT/OT/ST orders. Problems: (1) Altered mental status Qualifiers: Qualified Codes: R40.4 - Transient alteration of awareness (2) Acute on chronic respiratory failure Qualifiers: Qualified Codes: J96.21 - Acute and chronic respiratory failure with hypoxia (3) Acute on chronic diastolic (congestive) heart failure (4) Chronic atrial fibrillation (5) Chronic renal insufficiency Qualifiers: Qualified Codes: N18.3 - Chronic kidney disease, stage 3 (moderate) (6) Anemia Qualifiers: Qualified Codes: D64.9 - Anemia, unspecified (7) IDDM (insulin dependent diabetes mellitus) (8) Physical debility (9) Falls frequently (10) Anticoagulant long-term use (11) HTN (hypertension) Qualifiers: Qualified Codes: I10 - Essential (primary) hypertension Clinical Quality Measures DVT/VTE Risk/Contraindication: Risk Factor Score Per Nursin RFS Level Per Nursing on Admit: 4+=Very High RUBEN SANCHEZ MD Nov 03, 2018 14:44
[2018-11-03 16:24] VITALS: BP 187/73
[2018-11-03] MEDS: warFARin 5 MG (COUMADIN) TAB PO SCH (17:59)
[2018-11-03 19:44] VITALS: BP 129/81
[2018-11-03] MEDS: ASPIRIN E.C. 81 MG (ECOTRIN) TAB PO SCH (20:31)
[2018-11-03] MEDS: FAMOTIDINE 20 MG (PEPCID) TABLET PO SCH (20:31)
[2018-11-03] MEDS: ATORVASTATIN 10 MG (LIPITOR) TABLET PO SCH (20:31)
[2018-11-04] VITALS: BP 123/62
[2018-11-04] MEDS: RT-ALBUTEROL/IPRATROPIUM 3 ML (DUONEB) VIAL INH SCH ×2 (03:41→07:55)
[2018-11-04 04:00] VITALS: BP 122/60
[2018-11-04 04:58] LABS: BASOPHILS % (AUTO) 0 % (0-10); EOSINOPHILS # (AUTO) 0.1 10^3/uL (0.0-0.3); EOSINOPHILS % (AUTO) 1 % (0-10); HEMATOCRIT 22 % (40-54); HEMOGLOBIN 7.5 G/DL (13.3-17.7); LYMPHOCYTES # (AUTO) 0.9 X 10^3 (1.0-4.0); LYMPHOCYTES % (AUTO) 15 % (12-44); MEAN CORPUSCULAR HEMOGLOBIN 30 PG (25-34); MEAN CORPUSCULAR HGB CONC 34 G/DL (32-36); MEAN CORPUSCULAR VOLUME 87 FL (80-99); MEAN PLATELET VOLUME 10.9 FL (7.4-10.4); MONOCYTES # (AUTO) 2.4 X 10^3 (0.0-1.0); MONOCYTES % (AUTO) 40 % (0-12); NEUTROPHILS # (AUTO) 2.6 X 10^3 (1.8-7.8); NEUTROPHILS % (AUTO) 44 % (42-75); PLATELET COUNT 115 10^3/uL (130-400); RED CELL DISTRIBUTION WIDTH 14.3 % (10.0-14.5)
[2018-11-04 05:22] LABS: CALCIUM 8.1 MG/DL (8.5-10.1); CREATININE SERUM 2.12 MG/DL (0.60-1.30); POTASSIUM 3.7 MMOL/L (3.6-5.0)
[2018-11-04] MEDS: inSUlin ASPART (NovoLOG) 1 UNIT/0.01 ML (CHARGE PER UNIT) SC SCH (05:47)
[2018-11-04] MEDS: FERROUS SULF 325 MG (IRON) TAB PO SCH (06:38)
[2018-11-04] MEDS: TROSPIUM 20 MG (SANCTURA) TAB PO SCH (06:38)
[2018-11-04] MEDS: KCL 20 MEQ TAB (K-DUR) PO SCH (06:38)
[2018-11-04 08:00] VITALS: BP 138/68
--- NOTE | 2018-11-04 08:41 | Cardiology Progress Note ---
Subjective Date Seen by Provider: Nov 04, 2018 Time Seen by Provider: 08:35 Subjective/Events-last exam Patient is sitting up in bed, no new complaints. Denies any chest pain or dyspnea. Denies any palpitations dizziness or lightheadedness. Objective-Cardiology Exam Last Set of Vital Signs Vital Signs 11/01/18 11/04/18 11/04/18 03:55 11:50 12:15 Temp 97.6 Pulse 98 Resp 22 B/P (MAP) 138/68 Pulse Ox 95 O2 Delivery Nasal Cannula O2 Flow Rate 4.00 FiO2 40 Capillary Refill : Less Than 3 Seconds I&O Intake and Output 11/04/18 00:00 Intake Total 2646 ml Balance 2646 ml Intake Oral 2646 ml # Voids 6 General: Alert, Oriented X3, Cooperative HEENT: Atraumatic, PERRLA Neck: Supple, No JVD, No Thyromegaly Lungs: Clear to Auscultation, Normal Air Movement Heart: Regular Rate, Normal S1, Normal S2, No Murmurs Abdomen: Normal Bowel Sounds, Soft, No Tenderness, No Hepatosplenomegaly, No Masses Extremities: No Clubbing, No Cyanosis, Normal Pulses, No Tenderness/Swelling, Other (trace edema) Skin: No Rashes, No Breakdown, No Significant Lesion Neuro: Normal Speech, Normal Tone, Sensation Intact Psych/Mental Status: Mental Status NL, Mood NL Results Lab Laboratory Tests 11/04/18 04:14 A/P-Cardiology Admission Diagnosis Shortness of breath Congestive heart failure, acute on chronic left ventricular systolic dysfunction COPD Atrial fibrillation Assessment/Plan Shortness of breath, acute exacerbation of COPD, reporting improvement at this time, managed by medical team. Congestive heart failure, acute on chronic left ventricular systolic dysfunction , nonischemic cardiomyopathy, ejection fraction 45-50 percent with mild hypokinesia at the anterior wall. No previous history of coronary artery disease, had borderline stress test in February 2018 with mild decreased uptake at the mid to apical inferior wall with mild reversibility. Normal left ventricular function at that time. Continue to monitor Recent pneumonia, managed by primary care team Chronic atrial fibrillation, rate controlled, continue on current medication and monitor as an outpatient [id number] score is 4, yearly risk of stroke without oral anticoagulation is 4 percent. Maintained on Coumadin, continue to monitor INR as an outpatient Anemia, worse today, monitor H&H as an outpatient Hypertension, continue on current medication monitor blood pressure Acute on chronic renal insufficiency, continue to monitor renal function Peripheral vascular disease, extensive disease, multiple interventions in the past, last procedure was done on July 29, 2018 after having abnormal RANULFO with deployment of 2 overlapping Supera stents in the left SFA 6.0150 and 6.0 100 with excellent results and reduction of severe stenosis into no residual stenosis. Balloon angioplasty to the left tibial peroneal trunk that has severe stenosis/subtotal occlusion with excellent results and mild residual recoil. Diffuse atherosclerotic disease in the anterior tibial artery that is treated medically. Right lower extremity runoff showed moderate disease in the SFA and popliteal with very slow flow below the trifurcation. Maintained on aspirin and Plavix, wound on his left foot is healing, seen by Dr. Farrell Chronic venous insufficiency, seen by Dr. Castro in [place], status post ablation by Dr. Castro on the right side. Hyperlipidemia, monitor lipids COPD, Obstructive sleep apnea, history of prolonged respiratory failure and transferred to [facility], managed by Dr. Herring Diabetes mellitus. Followed and managed by primary care physician. Continue to monitor Diabetic neuropathy. Mild bilateral carotid stenosis, last ultrasound was done in June 2018. Continue to monitor. Clinical Quality Measures DVT/VTE Risk/Contraindication: Risk Factor Score Per Nursin RFS Level Per Nursing on Admit: 4+=Very High Supervisory-Addendum Brief Supervisory Addendum Participated in pt care: history Personally performed: exam Care discussed with: ZEE Results interpretation: agree Notes: Patient was seen at bedside sitting upright, feeling better, denied any chest pain. On examination lungs were clear to auscultation bilaterally, heart is irregular, his edema is better. Shortness of breath, acute exacerbation of COPD, reporting improvement at this time, managed by medical team. Congestive heart failure, acute on chronic left ventricular systolic dysfunction , nonischemic cardiomyopathy, ejection fraction 45-50 percent with mild hypokinesia at the anterior wall. No previous history of coronary artery disease, had borderline stress test in February 2018 with mild decreased uptake at the mid to apical inferior wall with mild reversibility. Normal left ventricular function at that time. Ok for discharge from cardiology standpoint , monitor as an outpatient Recent pneumonia, managed by primary care team Chronic atrial fibrillation, rate controlled, continue on current medication and monitor as an outpatient [id number] score is 4, yearly risk of stroke without oral anticoagulation is 4 percent. Maintained on Coumadin, continue to monitor INR as an outpatient Anemia, worse today, monitor H&H as an outpatient JACQUELINE SHARPE Nov 04, 2018 08:41 KEELEY ROSSI MD Nov 04, 2018 13:29
--- NOTE | 2018-11-04 09:15 | Discharge Summary ---
Diagnosis/Chief Complaint Date of Admission Nov 01, 2018 at 02:04 Date of Discharge Nov 04, 2018 Discharge Summary Hospital Course Labs Laboratory Tests 11/01/18 11:54: Glucometer 196H 11/01/18 16:00: Glucometer 344H 11/01/18 17:59: 11/01/18 21:30: Glucometer 389H 11/02/18 03:15: White Blood Count 3.7L, Red Blood Count 2.60L, Hemoglobin 7.8L, Hematocrit 23L, Platelet Count 99L, Mean Platelet Volume 11.9H, Monocytes (%) (Auto) 26H, Lymphocytes # (Auto) 0.5L, Sodium Level 134L, Carbon Dioxide Level 20L, Blood Urea Nitrogen 60H, Creatinine 2.25H, Glucose Level 347H, Calcium Level 8.1L, Total Protein 4.5L, Albumin 2.1L 11/02/18 11:05: Glucometer 279H 11/02/18 16:37: Glucometer 269H 11/02/18 20:59: Glucometer 345H 11/03/18 05:30: Glucometer 226H 11/03/18 07:30: Red Blood Count 2.86L, Hemoglobin 8.8L, Hematocrit 25L, Mean Platelet Volume 10.7H, Monocytes (%) (Auto) 39H, Lymphocytes # (Auto) 0.7L, Monocytes # (Auto) 2.3H, Sodium Level 134L, Blood Urea Nitrogen 53H, Creatinine 2.01H, Glucose Level 229H, Magnesium Level 1.6L, Albumin 2.2L 11/03/18 11:14: Glucometer 284H 11/03/18 16:21: Glucometer 197H 11/03/18 20:25: Glucometer 236H 11/04/18 04:14: Red Blood Count 2.51L, Hemoglobin 7.5L, Hematocrit 22L, Platelet Count 115L, Mean Platelet Volume 10.9H, Monocytes (%) (Auto) 40H, Lymphocytes # (Auto) 0.9L , Monocytes # (Auto) 2.4H, Sodium Level 134L, Blood Urea Nitrogen 58H, Creatinine 2.12H, Glucose Level 142H, Calcium Level 8.1L 11/04/18 05:38: Glucometer 151H Procedures None. Discharge Physical Examination Allergies: Coded Allergies: sulfamethoxazole (Verified Allergy, Mild, RASH, 2/15/18) trimethoprim (Verified Allergy, Mild, RASH, 11/13/17) Vitals & I&Os Vital Signs Date Time Temp Pulse Resp B/P (MAP) Pulse Ox O2 Delivery O2 Flow Rate FiO2 11/04/18 07:55 98 Nasal Cannula 4.00 11/04/18 07:00 94 11/04/18 04:50 17 11/04/18 04:00 97.5 122/60 (80) 11/01/18 03:55 40 Discharge Home Medications Reviewed and agree with Discharge Medication list on patient's Discharge Instruction sheet Instructions to Patient/Family Please see electronic discharge instructions given to patient. Clinical Quality Measures DVT/VTE Risk/Contraindication: Risk Factor Score Per Nursin RFS Level Per Nursing on Admit: 4+=Very High RUBEN SANCHEZ MD Nov 04, 2018 09:15
--- NOTE | 2018-11-04 09:20 | Discharge Inst-Skilled Nursing ---
Discharge Inst-Skilled NF Chief Complaint CC: Recurrent pneumonia HPI: This is an 83-year-old white male who has frequent hospital stays most recent one week ago for pneumonia who went home on home health was brought to the ER yesterday for altered mental status and found to have recurrent pneumonia with respiratory insufficiency. He remains a full code. He is been maintained on BiPAP and overall stable but poor prognosis remains. Dr. Herring expertise is appreciated. I have restarted all of his home medication the patient drowsy and sleeping soundly so does not contribute to the interview. 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 Needs protective boot off-loading. -follows with Dr. Farrell Wound Care --diastolic heart faliure --Physical debility --anemia of chronic disease -Obstructive Sleep Apnea- may use home CPAP/BiPAP with home settings. Patient Instructions: --work with physical therapy, occupational therapy, ST in effort to improve enough to return home with his . Consult/Follow Up/Orders Follow Up Appt.: follow up with [facility] in 1-2 weeks Skilled NF Admit to: [facility] Certification ([facility]) I certify that SNF services are required to be given on an inpatient basis because of the above named patient's need for fdc care on a continuing basis for the conditions(s) for which he/she was receiving inpatient hospital services prior to his/her transfer to the SNF. [facility] Facility Order: Nursing Services, Estimator-Evaluate & Treat, Physical Therapy-Evaluate & Treat, Speech Language-Evaluate & Treat, Other (keep oxygen saturation greater than 90%, baseline oxygen requirement 2L- 4L) Discharge Diet: ADA Diet Daily Activity as Tolerated: Yes New & Resume Previous Orders New & Resume Previous Orders --hold blood pressure medications ( losartan, carvedilol ) for blood pressures less than 100/60 and heart rate less than 60 --recheck CBC in 1 week (11/11/18) -May use home CPAP/BiPAP with home settings. Hugo Alexander Nov 04, 2018 09:18 HUGO ALEXANDER MD Nov 04, 2018 09:19
[2018-11-04] MEDS ORDERED: FURO20TA4 PO (09:26)
[2018-11-04] MEDS ORDERED: MAGN400T6 PO (09:26)
[2018-11-04] MEDS ORDERED: IPRA3AMP31 INH (09:26)
[2018-11-04] MEDS: AZITHROMYCIN 250 MG TAB (ZITHROMAX) PO SCH (10:03)
[2018-11-04] MEDS: FUROSEMIDE 20 MG (LASIX) TAB PO SCH (10:03)
[2018-11-04] MEDS: CARVEDILOL 12.5 MG (COREG) TABLET PO SCH (10:03)
[2018-11-04] MEDS: MAGNESIUM OXIDE (MAG-OX)400 MG TAB PO SCH (10:04)
[2018-11-04] MEDS: inSUlin Protamine/ASPart 70/30 1 UNIT/0.01 ML DOSE SC SCH (10:04)
[2018-11-04] MEDS: DIGOXIN 0.125 MG (LANOXIN) TAB PO SCH (10:04)
[2018-11-04] MEDS: LOSARTAN 100 MG (COZAAR) TABLET PO SCH (10:04)
[2018-11-04] MEDS: CLOPIDOGREL 75 MG (PLAVIX) TABLET PO SCH (10:05)
--- NOTE | 2018-11-04 11:17 | NUR ---
CM/SS. Patient [facility] Medicare skilled [facility] their transport scheduled for 1200. Facility understands to bring wheelchair and O2 and sba underwriter requested a blanket for patient warmth. CARE Assessment completed with patient and processed with [facility] per protocols. Faxed orders and CARE to [facility], prepared packet to accompany patient. Patient very open to going to SNF, he states it was his idea. His spouse continues to work restaurant managing partner for [employer] transporting children to [place] and patient is often alone at home. Patient's first late 's, they owned [email or web address].
[2018-11-04 11:50] VITALS: BP 113/56
[2018-11-04 12:15] VITALS: BP 138/68
--- NOTE | 2018-11-04 12:15 | NUR ---
NIRANJAN ENGLE OF [facility] demonstrates understanding of discharge instructions and accurately returns instructions upon questioning. Copy of Post-Discharge Instructions given to MLS . MLS is able to manage continuing needs after discharge. Patients belongings returned to PT. Patient discharged from [facility] on 11/04/18 at 12:15. ANIYAH MANZANARES left floor via W/C [facility] V[facility], accompanied by MLS STAFF.
== END 2018-11-04 12:15 | DRG 189 ==
LOC: EDUNIT# 00:10 → ER 00:12 → ICU 02:04 → 4TH 11-02 10:30
PROVIDERS: ADMIT Internal Medicine; ATTEND Family Medicine
DX: J96.20 Acute and chronic respiratory failure, unspecified whether with hypoxia or hypercapnia (principal); I13.0 Hypertensive heart and chronic kidney disease with heart failure and stage 1 through stage 4 chronic kidney disease, or unspecified chronic kidney disease; N18.4 Chronic kidney disease, stage 4 (severe); I50.33 Acute on chronic diastolic (congestive) heart failure; N17.9 Acute kidney failure, unspecified; J44.1 Chronic obstructive pulmonary disease with (acute) exacerbation; J44.0 Chronic obstructive pulmonary disease with (acute) lower respiratory infection; E66.2 Morbid (severe) obesity with alveolar hypoventilation; E11.621 Type 2 diabetes mellitus with foot ulcer; L97.429 Non-pressure chronic ulcer of left heel and midfoot with unspecified severity; J98.11 Atelectasis; E11.42 Type 2 diabetes mellitus with diabetic polyneuropathy; E11.21 Type 2 diabetes mellitus with diabetic nephropathy; E11.51 Type 2 diabetes mellitus with diabetic peripheral angiopathy without gangrene; I27.20 Pulmonary hypertension, unspecified; I48.2 Chronic atrial fibrillation; I08.3 Combined rheumatic disorders of mitral, aortic and tricuspid valves; E78.00 Pure hypercholesterolemia, unspecified; D64.9 Anemia, unspecified; K21.9 Gastro-esophageal reflux disease without esophagitis; F03.90 Unspecified dementia, unspecified severity, without behavioral disturbance, psychotic disturbance, mood disturbance, and anxiety; R53.1 Weakness; R53.81 Other malaise; I65.23 Occlusion and stenosis of bilateral carotid arteries; Z87.891 Personal history of nicotine dependence; Z68.32 Body mass index [BMI] 32.0-32.9, adult; Z95.820 Peripheral vascular angioplasty status with implants and grafts; Z79.4 Long term (current) use of insulin; Z85.828 Personal history of other malignant neoplasm of skin
CPT/HCPCS: 36415; 51701; 71045; 80048; 80053; 80069; 80162; 80170; 81000; 82550; 82553; 82805; 82962; 83605; 83735; 83874; 83880; 84443; 84484; 85007; 85025; 85027; 85610; 85730; 87040; 93005; 93041; 94640; 94660; 94664; 94760; 99291

== ENCOUNTER 2018-11-06 15:07 | Inpatient (IN) | payer MEDICARE, BC ==
[~2018-11-06] VITALS: Ht 170.2 cm; Wt 96.6 kg
[~2018-11-06 15:07] MED LIST changes: +CHOL200014 PO
--- OUTSIDE RECORDS SUMMARY | 2018-11-06 15:14 | XMS REPORT | Clinical Summary ---
Author Author [facility] Organization [facility] Address Unknown Phone Unavailable Care Team Providers Care Fuel Cell Designer Name Role Phone JasonCailin Unavailable Unavailable Ru Gomez MD PCP Ronen Agosto MD Unavailable Source Comments Some departments are not documenting in the electronic medical record. If you do not see the information that you expected, contact Release of Information in the Health Information Management department at [phone] for further assistance in locating additional records.[facility] Allergies Comments Active Allergy Reactions Severity Noted Date Sulfamethoxazole-Trimetho RASH Medium 06/30/2015 prim Medications End Date Status Medication Sig Dispensed Refills Start Date Active warfarin (COUMADIN) 5 mg Take 5 mg by 0 tablet mouth daily. Tues, thurs, sat, sun 5mg, mon, wed, fri 7.5mg 7.5 4 days week 5mg 3 days week 05/31/16 Active magnesium oxide (MAG-OX) Take 500 mg 0 400 mg tablet by mouth daily. Active MULTIVITAMIN PO Take by 0 mouth daily. Active insulin aspart 70/30 (+) Inject 30 0 (NOVOLOG MIX 70-30) 100 Units into unit/mL (70/30) soln area(s) as directed twice daily. 30 units in the afternoon and 33 units in the evening Active niacin 500 mg tablet Take 500 mg 0 by mouth daily. Active other medication 1 Dose daily. 0 Natokinase Active Cholecalciferol (Vitamin Take by 0 D3) (VITAMIN D-3) 2,000 mouth daily. unit cap Active tamsulosin (FLOMAX) 0.4 Take 0.4 mg 0 mg capsule by mouth daily. Active albuterol 0.083% Inhale 3 mL 75 mL 11 (PROVENTIL; VENTOLIN) 2.5 solution as 6 mg /3 mL (0.083 %) directed nebulizer every 4 hours solutionIndications: as needed for Chronic Obstructive Lung Wheezing. Disease Indications: CHRONIC OBSTRUCTIVE PULMONARY DISEASE Active ipratropium (ATROVENT) Inhale 2.5 mL 1 Bottle 11 0.02 % nebulizer by mouth 6 solutionIndications: twice daily. Chronic Obstructive Indications: Asthma CHRONIC OBSTRUCTIVE ASTHMA Active diltiazem CD (CARDIZEM Take 2 Caps 60 Cap 11 CD) 240 mg by mouth 6 capsuleIndications: daily. Paroxysmal atrial fibrillation (HCC), Shortness of breath, Essential hypertension, Coronary artery disease involving [place] coronary artery of [place] heart without angina pectoris Active aspirin EC 81 mg tablet Take 81 mg by 0 mouth daily. Active losartan (COZAAR) 25 mg Take 25 mg by 0 tablet mouth daily. Active atenolol (TENORMIN) 25 mg Take 1 Tab by 90 Tab 3 tablet mouth daily. 6 Active furosemide (LASIX) 20 mg Take 1 Tab by 180 Tab 3 tablet mouth twice 6 daily. Active potassium chloride SR Take 2 Tabs 360 Cap 2 (K-DUR) 20 mEq tablet by mouth 6 twice daily. 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 -Autotitrating BiPAP on its way. -Will assess with nocox to evaluate need for O2 bleed in. Paroxysmal atrial fibrillation 06/30/2015 Overview: 12/02/13: Echo: LA size 5.5cm. EF 60%. Normal left ventricular systolic function. Mild MR, Mild TR. Essential hypertension 06/30/2015 COPD (chronic obstructive pulmonary disease) 06/30/2015 Last Assessment & Plan: COPD with [...] and Noc ox Coronary artery disease involving [place] coronary artery of [place] heart 10/2014 without angina pectoris Diabetic neuropathy 06/30/2015 Diabetes mellitus 06/30/2015 Shortness of breath 06/30/2015 Last Assessment & Plan: Multifactorial with deconditioning, Afib, VIPIN Fatigue 06/30/2015 Obesity 06/30/2015 Peripheral neuropathy 06/30/2015 Family History Relation Name Status Comments Father Mother Social History Date Tobacco Use Types Packs/Day Years Used Former Smoker Cigarettes 2 50 Smokeless Tobacco: Never Used Comments: Quit in 2002 Alcohol Use Drinks/Week oz/Week Comments No Sex Assigned at Date Recorded Not on file Industry Job Start Date Occupation Not on file Not on file Not on file Travel End Travel History Travel Start No recent travel history available. Last Filed Vital Signs Time Taken Vital Sign Reading 05/31/2016 12:46 PM CDT Blood Pressure 154/88 05/31/2016 12:46 PM CDT Pulse 60 05/31/2016 12:46 PM CDT Temperature 36.7 C (98 F) 05/31/2016 12:46 PM CDT Respiratory Rate 20 05/31/2016 12:46 PM CDT Oxygen Saturation 96% - Inhaled Oxygen - Concentration 05/31/2016 12:46 PM CDT Weight 119.9 kg (264 lb 6.4 oz) 05/31/2016 12:46 PM CDT Height 172.7 cm (5' 8") 05/31/2016 12:46 PM CDT Body Mass Index 40.2 Plan of Treatment Health Maintenance Due Date Last Done Comments PHYSICAL (COMPREHENSIVE) 1942 EXAM DILATED EYE EXAM 1954 DTAP/TDAP VACCINES (1 - 1954 Tdap) FOOT EXAM 1954 HBA1C 1954 MICROALBUMIN 1954 SHINGLES RECOMBINANT 1986 VACCINE (1 of 2) PNEUMONIA (PCV13/PPSV23) 2001 VACCINES (1 of 2 - PCV13) INFLUENZA VACCINE 04/29/2018 Results Not on filefrom Last 3 Months Insurance Payer Benefit Subscriber ID Type Phone Address Plan / Group MEDICARE MEDICARE xxxxxxxxxx Medicare PART A AND B [employer] xxxxxxxxxxxx PPO BLUE OUT OF STATE (Home) [place] [address] Advance Directives Patient has advance care planning documents on file. For more information, please contact: [facility] [address] [place] [address]
--- NOTE | 2018-11-06 16:55 | ED Respiratory ---
General Chief Complaint: Respiratory Problems Stated Complaint: SOB Nursing Triage Note: Pt sent to ED from [facility]. Note from RN at [facility] state pt has been in respiratory distress requiring continuous bipapand O2 at 4L. Pt also lethargic, agitated, thready pulse and drastic drops in O2 sats. Pt denies pain at this time. Pt has cough, however pt reports, "coughing like that for 50 years." Source: patient, caregiver Exam Limitations: no limitations History of Present Illness Date Seen by Provider: Nov 06, 2018 Time Seen by Provider: 16:51 Initial Comments This 83-year-old white male presents from the medical [facility] with a history of respiratory distress. The patient has had a cough, low-grade fever, and brief episodes of hypoxia. There's been no associated history of headache stiff neck, chest pain, palpitations, nausea vomiting or diarrhea. Patient has chronic peripheral edema that appears to be unchanged from the caregiver's perspective. Allergies and Home Medications Allergies Coded Allergies: sulfamethoxazole (Verified Allergy, Mild, RASH, 11/13/17) trimethoprim (Verified Allergy, Mild, RASH, 11/13/17) Home Medications Aspirin 81 Mg Tablet.dr, 81 MG PO HS, (Reported) Atorvastatin Calcium 10 Mg Tablet, 10 MG PO HS, (Reported) Carvedilol 12.5 Mg Tablet, 18.75 MG PO BID, (Reported) TAKES 1 & 1/2 (12.5MG) TABLETS Cholecalciferol (Vitamin D3) 2,000 Unit Tablet, 2,000 UNIT PO DAILY, (Reported) Clopidogrel Bisulfate 75 Mg Tablet, 75 MG PO DAILY, (Reported) Digoxin 125 Mcg Tablet, 125 MCG PO DAILY, (Reported) Ferrous Sulfate 325 Mg Tablet, 325 MG PO BID, (Reported) Furosemide 20 Mg Tablet, 40 MG PO DAILY Prescribed by: RUBEN SANCHEZ on 11/04/18925 Insuln Asp Prt/Insulin Aspart 300 Units/3 Ml Solution, 17 UNITS SQ 0800,2100, ( Reported) Ipratropium/Albuterol Sulfate 3 Ml Ampul.neb, 3 ML INH RTQ6HR Prescribed by: RUBEN SANCHEZ on 11/04/18925 Krill Oil 500 Mg Capsule, 500 MG PO DAILY, (Reported) Losartan Potassium 100 Mg Tablet, 100 MG PO DAILY, (Reported) Magnesium Oxide 400 Mg Tablet, 400 MG PO BIDPC Prescribed by: RUBEN SANCHEZ on 11/04/18 0926 Ondansetron HCl 4 Mg Tablet, 4 MG PO Q4H PRN for NAUSEA/VOMITING-1ST LINE, ( Reported) Ranitidine HCl 150 Mg Tablet, 150 MG PO BID, (Reported) Silver 480 Ml Gel.er.ml., TOP DAILY, (Reported) APPLY LEFT HEAL WOUND Trospium Chloride 60 Mg Cap.er.24h, 60 MG PO DAILY, (Reported) Warfarin Sodium 5 Mg Tablet, 7.5 MG PO SUN,MON,WED,SAT, (Reported) Warfarin Sodium 5 Mg Tablet, 5 MG PO ,, (Reported) Patient Home Medication List Home Medication List Reviewed: Yes Review of Systems Review of Systems Constitutional: No chills; fever EENTM: No ear pain Respiratory: see HPI, cough Cardiovascular: No chest pain, No palpitations Gastrointestinal: No abdominal pain, No diarrhea, No nausea, No vomiting Genitourinary: no symptoms reported Musculoskeletal: No back pain, No joint swelling Skin: No change in color, No rash Psychiatric/Neurological: No Symptoms Reported Hematologic/Lymphatic: No Symptoms Reported Immunological/Allergic: no symptoms reported Past Vqeljdz-Aqcyzc-Fflpik Hx Past Med/Social Hx: Reviewed Nursing Past Med/Soc Hx Patient Social History Type Used: Cigarettes Former Smoker, Quit: Jul 29, 2005 2nd Hand Smoke Exposure: No Recent Foreign Travel: No Contact w/Someone Who Travel: No Recent Infectious Disease Expo: No Recent Hopitalizations: No Immunizations Up To Date Tetanus Booster (TDap): Less than 5yrs PED Vaccines UTD: No Date of Pneumonia Vaccine: Jul 27, 2018 Date of Influenza Vaccine: Jul 27, 2018 Seasonal Allergies Seasonal Allergies: No Past Medical History Surgeries: Yes Eye Surgery, Orthopedic, Tonsillectomy, Transurethral Resection, Vascular Surgery Respiratory: Yes (02 4l at hs, used to wear cpap) Pneumonia, Sleep Apnea, COPD Currently Using CPAP: No (DOESN'T USE IT) Currently Using BIPAP: No Cardiac: Yes (LBBB) Atrial Fibrillation, Chronic Edema/Swelling, High Cholesterol, Hypertension, Peripheral Vascular Neurological: Yes (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) Neuropathy Reproductive Disorders: No Sexually Transmitted Disease: No HIV/AIDS: No Genitourinary: Yes (TURP) Benign Prostatic Hyperpl, Prostate Problems, Renal Failure, UTI-Chronic Gastrointestinal: Yes Gastroesophageal Reflux, Chronic Constipation Musculoskeletal: Yes (GENERALIZED WEAKNESS; FREQUENT FALLS ) Endocrine: Yes Diabetes, Insulin dep HEENT: Yes Cataract, Macular Degeneration Hearing Impairment: Hard of Hearing Cancer: Yes (BASAL CELL CARCINOMA) Skin Did You Recieve Any Treatments: No Psychosocial: Yes Sleep Difficulties Integumentary: Yes (CELLULITIS IN LEFT KNEE EARLY OCTOBER 2013; DIABETIC FOOT ULCER. ) Recent Skin Changes Blood Disorders: No Adverse Reaction/Blood Tranf: No Family Medical History COPD 19 FATHER Colon cancer 19 MOTHER Diabetes mellitus G8 SISTER Drug abuse G8 SISTER Lung cancer 19 FATHER Polio G8 BROTHER Sarcoidosis G8 BROTHER Cancer Physical Exam Vital Signs - First Documented 11/06/18 15:15 Temp 95.9 Pulse 93 Resp 18 B/P (MAP) 100/60 (73) Pulse Ox 95 O2 Delivery Room Air Capillary Refill : Less Than 3 Seconds Height: 5'7.00" Weight: 213lbs. 0.0oz. 96.077059nj; 33.5 BMI Method:Stated General Appearance: WD/WN HEENT: normal ENT inspection Neck: normal inspection Respiratory: no respiratory distress, decreased breath sounds Cardiovascular: regular rate, rhythm Gastrointestinal: normal bowel sounds, non tender Extremities: normal range of motion, pedal edema Neurologic/Psychiatric: no motor/sensory deficits, alert Skin: normal color, warm/dry Focused Exam Lactate Level 11/06/18 17:45: Lactic Acid Level 0.94 Lactic Acid Level Laboratory Tests Test 11/06/18 17:45 Lactic Acid Level 0.94 MMOL/L (0.50-2.00) Procedures/Interventions Date of ETT Placement: Oct 13, 2016 Time of ETT Placement: 2129 Progress/Results/Core Measures Suspected Sepsis Recent Fever Within 48 Hours: No Infection Criteria Present: None New/Unexplained Altered Menta: No Sepsis Screen: No Definite Risk SIRS Temperature:95.9 Pulse: 93 Respiratory Rate: 18 Laboratory Tests 11/06/18 17:45: White Blood Count 11.9H Blood Pressure 100 /60 Mean: 73 11/06/18 17:45: Lactic Acid Level 0.94 Laboratory Tests 11/06/18 17:45: Platelet Count 173 Results/Orders Lab Results Laboratory Tests Test 11/06/18 17:45 Range/Units White Blood Count 11.9 H 4.3-11.0 10^3/uL Red Blood Count 2.38 L 4.35-5.85 10^6/uL Hemoglobin 7.2 L 13.3-17.7 G/DL Hematocrit 21 L 40-54 % Mean Corpuscular Volume 90 80-99 FL Mean Corpuscular Hemoglobin 30 25-34 PG Mean Corpuscular Hemoglobin Concent 34 32-36 G/DL Red Cell Distribution Width 14.4 10.0-14.5 % Platelet Count 173 130-400 10^3/uL Mean Platelet Volume 11.0 H 7.4-10.4 FL Neutrophils (%) (Auto) 63 42-75 % Lymphocytes (%) (Auto) 12 12-44 % Monocytes (%) (Auto) 24 H 0-12 % Eosinophils (%) (Auto) 1 0-10 % Basophils (%) (Auto) 0 0-10 % Neutrophils # (Auto) 7.5 1.8-7.8 X 10^3 Lymphocytes # (Auto) 1.4 1.0-4.0 X 10^3 Monocytes # (Auto) 2.8 H 0.0-1.0 X 10^3 Eosinophils # (Auto) 0.1 0.0-0.3 10^3/uL Basophils # (Auto) 0.0 0.0-0.1 10^3/uL Neutrophils % (Manual) 72 % Lymphocytes % (Manual) 11 % Monocytes % (Manual) 8 % Eosinophils % (Manual) 3 % Basophils % (Manual) 0 % Metamyelocytes % 2 % Band Neutrophils 4 % Anisocytosis SLIGHT Spherocytes MODERATE Lactic Acid Level 0.94 0.50-2.00 MMOL/L B-Type Natriuretic Peptide 230.5 H <100.0 PG/ML My Orders Orders - GENE ALBARRAN MD Cbc With Automated Diff (11/06/18 16:55) Comprehensive Metabolic Panel (11/06/18 16:55) BNP (11/06/18 16:55) Chest 1 View, Ap/Pa Only (11/06/18 16:55) Ekg Tracing (11/06/18 16:55) Troponin I (11/06/18 16:55) Ua Culture If Indicated (11/06/18 16:55) Blood Culture (11/06/18 16:55) Lactic Acid Analyzer (11/06/18 16:55) Ns Iv 1000 Ml (Sodium Chloride 0.9%) (11/06/18 17:00) Manual Differential (11/06/18 17:45) Lactic Acid Analyzer (11/06/18 18:21) Furosemide Injection (Lasix Injection) (11/06/18 18:30) Piperacillin/Tazobactam (Bulk) (Zosyn In (11/06/18 18:30) Vancomycin Injection (Vancomycin Injecti (11/06/18 18:30) Vital Signs/I&O 11/06/18 15:15 Temp 95.9 Pulse 93 Resp 18 B/P (MAP) 100/60 (73) Pulse Ox 95 O2 Delivery Room Air Capillary Refill : Less Than 3 Seconds Blood Pressure Mean: 73 Progress Note : Time: 18:28 Progress Note The patient demonstrated a leukocytosis and tiny residual left pleural effusion. There is questionable infiltrate in the lower lobes. The patient was admitted to Dr. Goyal. Dr. Herring was console good. Orders were written for the patient to go to a telemetry bed. We'll initiate vancomycin and Zosyn Lasix and give the patient DuoNeb treatments. Departure Communication (Admissions) Time/Spoke to Admitting Phy: 18:29 Dr. Goyal Time/Spoke to Consulting Phy: 18:29 Dr. Herring Impression Primary Impression: Pneumonia Qualified Codes: J18.1 - Lobar pneumonia, unspecified organism Additional Impression: Hypoxia Disposition: ADMITTED INPATIENT Condition: Improved Admissions Decision to Admit Reason: Admit from ER (General) Decision to Admit/Date: Nov 06, 2018 Time/Decision to Admit Time: 18:31 Departure-Patient Inst. Referrals: RUBEN SANCHEZ MD (PCP/Family) Primary Care Physician GENE ALBARRAN MD Nov 06, 2018 16:55
[2018-11-06] MEDS ORDERED: NS IV 1000 ML 1,000 ML IV SCH (17:00)
[2018-11-06 17:53] LABS: BASOPHILS % (AUTO) 0 % (0-10); EOSINOPHILS # (AUTO) 0.1 10^3/uL (0.0-0.3); EOSINOPHILS % (AUTO) 1 % (0-10); HEMATOCRIT 21 % (40-54); HEMOGLOBIN 7.2 G/DL (13.3-17.7); LYMPHOCYTES # (AUTO) 1.4 X 10^3 (1.0-4.0); LYMPHOCYTES % (AUTO) 12 % (12-44); MEAN CORPUSCULAR HEMOGLOBIN 30 PG (25-34); MEAN CORPUSCULAR HGB CONC 34 G/DL (32-36); MEAN CORPUSCULAR VOLUME 90 FL (80-99); MONOCYTES # (AUTO) 2.8 X 10^3 (0.0-1.0); MONOCYTES % (AUTO) 24 % (0-12); NEUTROPHILS # (AUTO) 7.5 X 10^3 (1.8-7.8); NEUTROPHILS % (AUTO) 63 % (42-75); PLATELET COUNT 173 10^3/uL (130-400); RED CELL DISTRIBUTION WIDTH 14.4 % (10.0-14.5); WHITE BLOOD COUNT 11.9 10^3/uL (4.3-11.0)
[2018-11-06 18:12] LABS: ALBUMIN 1.9 GM/DL (3.2-4.5); BILIRUBIN,TOTAL 0.7 MG/DL (0.1-1.0); CALCIUM 8.4 MG/DL (8.5-10.1); CREATININE SERUM 2.28 MG/DL (0.60-1.30); POTASSIUM 3.8 MMOL/L (3.6-5.0); TOTAL PROTEIN 5.2 GM/DL (6.4-8.2)
[2018-11-06 18:23] LABS: ANISOCYTOSIS SLIGHT; BAND NEUTROPHILS 4 %; BASOPHILS % (MANUAL) 0 %; EOSINOPHILS % (MANUAL) 3 %; LYMPHOCYTES % (MANUAL) 11 %; METAMYELOCYTES % 2 %; MONOCYTES % (MANUAL) 8 %; NEUTROPHILS % (MANUAL) 72 %; SPHEROCYTES MODERATE
[2018-11-06] MEDS ORDERED: VANCOMYCIN INJECTION 1,000 MG in NS (IVPB) 250 ML IV SCH (18:30)
[2018-11-06] MEDS ORDERED: PIPERACILLIN/TAZOBACTAM (BULK) 4.5 GM in NS (IVPB) 100 ML IV ONE (18:30)
[2018-11-06] MEDS ORDERED: VANCOMYCIN IV ONE ×2 (18:30)
[2018-11-06] MEDS ORDERED: FUROSEMIDE 40 MG/4 ML INJ (LASIX) IVP ONE (18:30)
[2018-11-06] MEDS ORDERED: NS IV ONE ×2 (18:30)
--- NOTE | 2018-11-06 18:31 | Diagnostic Imaging Report ---
EXAMINATION: Upright frontal chest. INDICATION: Low oxygen saturation. COMPARISON: Multiple priors, most recent performed on 11/02/2018. FINDINGS: There is prominence of the central pulmonary vasculature, with interstitial prominence also noted in both lung bases. There is mild bibasilar atelectasis. No large pleural effusion. No pneumothorax. The cardiomediastinal silhouette is unchanged. Multiple old right rib fractures. No acute osseous abnormality is identified. IMPRESSION: Central vascular congestion and interstitial prominence in the lung bases, likely reflecting pulmonary edema. Mild bibasilar atelectasis is also noted. No significant pleural effusion. Dictated by: Dictated on workstation # [id number]
[2018-11-06] MEDS ORDERED: DEXTROSE 50% 50 ML (IMS) SYR ONE (18:46)
--- OUTSIDE RECORDS SUMMARY | 2018-11-06 19:34 | XMS REPORT | Clinical Summary ---
Author Author [facility] Organization [facility] Address Unknown Phone Unavailable Care Team Providers Care Career Services Manager Name Role Phone JasonCailin Unavailable Unavailable Ru Gomez MD PCP Ronen Agosto MD Unavailable Source Comments Some departments are not documenting in the electronic medical record. If you do not see the information that you expected, contact Release of Information in the Health Information Management department at [phone] for further assistance in locating additional records.[facility] Allergies Comments Active Allergy Reactions Severity Noted [...] breath, Essential hypertension, Coronary artery disease involving [place] coronary artery of [place] heart without angina pectoris Active aspirin EC [...] and Noc ox Coronary artery disease involving [place] coronary artery of [place] heart 10/2014 without angina pectoris Diabetic neuropathy [...] xxxxxxxxxxxx PPO BLUE OUT OF STATE (Home) [place] [address] Advance Directives Patient has advance care planning documents on file. For more information, please contact: [facility] [address] [place] [address]
--- NOTE | 2018-11-06 20:04 | NUR ---
ANIYAH MANZANARES admitted to room 418-1, with an admitting diagnosis of ACUTE HYPOXIC EPISODES AND POSSIBLE PNA, on 11/06/18 from ED via CART, accompanied by STAFF AND FAMILY. ANIYAH MANZANARES introduced to surroundings, call light, bed controls, phone, TV, temperature control, lights, meal times, smoking policy, visitor policy, side rail policy, bathrooms and showers. Patient Rights given to patient in the handbook.ANIYAH MANZANARES verbalizes understanding that [facility] is not responsible for the loss or damage to any personal effects or valuables that are kept in the patients posession during their hospitalization.
[2018-11-06 20:15] VITALS: BP 143/85
--- NOTE | 2018-11-06 20:23 | NUR ---
VANCO DOSING FOR ED: BASED ON ACTUAL BW 96.6 LOADING DOSE = 2,500 MG USING PREVIOUS SCr FROM LAST VISIT 2.04 EST CrCl 31 addendum: SCr 2.28 EST CrCL 27.5 PHARMACY TO DOSE VANCOMYCIN: 1,500 MG IV DAILY VANCOMYCIN TROUGH ORDERED FOR 11/07/18 @ 17:00 IF TROUGH IS GREATER THAN 20 HOLD 11/07/18 18:00 DOSE.
[2018-11-06] MEDS ORDERED: NS IV 1000 ML 1,000 ML ONE (20:24)
[2018-11-06] MEDS ORDERED: RT-ALBUTEROL/IPRATROPIUM 3 ML (DUONEB) VIAL IH PRN (20:30)
[2018-11-06] MEDS ORDERED: CATHETER FLUSH 10 ML SYR IV PRN (20:30)
[2018-11-06] MEDS: NS IV 1000 ML 1,000 ML IV SCH (20:37)
[2018-11-06 22:40] VITALS: BP 143/85
[2018-11-06 23:02] VITALS: BP 113/61
[2018-11-07] VITALS (9 sets, daily range): BP systolic 99–149; BP diastolic 53–79
[2018-11-07] MEDS: PIPERACILLIN/TAZO 4.5 GM/NS 100 ML IV SCH ×6 (00:23→20:05)
[2018-11-07 06:22] LABS: BASOPHILS % (AUTO) 0 % (0-10); EOSINOPHILS # (AUTO) 0.1 10^3/uL (0.0-0.3); EOSINOPHILS % (AUTO) 1 % (0-10); LYMPHOCYTES # (AUTO) 0.7 X 10^3 (1.0-4.0); LYMPHOCYTES % (AUTO) 9 % (12-44); MEAN CORPUSCULAR HEMOGLOBIN 29 PG (25-34); MEAN CORPUSCULAR HGB CONC 33 G/DL (32-36); MEAN CORPUSCULAR VOLUME 89 FL (80-99); MEAN PLATELET VOLUME 10.6 FL (7.4-10.4); MONOCYTES # (AUTO) 1.6 X 10^3 (0.0-1.0); MONOCYTES % (AUTO) 20 % (0-12); NEUTROPHILS # (AUTO) 5.8 X 10^3 (1.8-7.8); NEUTROPHILS % (AUTO) 71 % (42-75); PLATELET COUNT 151 10^3/uL (130-400); RED CELL DISTRIBUTION WIDTH 14.3 % (10.0-14.5); WHITE BLOOD COUNT 8.3 10^3/uL (4.3-11.0)
[2018-11-07 06:23] LABS: HEMATOCRIT 19 % (40-54); HEMOGLOBIN 6.1 G/DL (13.3-17.7)
--- NOTE | 2018-11-07 06:29 | NUR ---
CRITICAL H&H 6.1,19 DR. MORTENSEN NOTIFIED, NEW ORDERS RECEIVED: GIVE 2 UNITS OF PRBC'S, LASIX 20MG IV BETWEEN UNITS, HEMOCCULT STOOLS. WILL CONTINUE TO MONITOR.
[2018-11-07 06:38] LABS: ALBUMIN 1.8 GM/DL (3.2-4.5); BILIRUBIN,TOTAL 0.7 MG/DL (0.1-1.0); CREATININE SERUM 2.21 MG/DL (0.60-1.30); TOTAL PROTEIN 4.6 GM/DL (6.4-8.2)
[2018-11-07] MEDS: RT-ALBUTEROL/IPRATROPIUM 3 ML (DUONEB) VIAL IH SCH ×4 (06:51→19:17)
--- NOTE | 2018-11-07 07:04 | Pulmonary Consultation ---
History of Present Illness History of Present Illness Date of Consultation 11/07/18 06:59 Time Seen by Provider: 06:59 Date of Admission History of Present Illness 83 yo with frequent hospitalizations presented to ED from [facility] secondary worsening respiratory distress, and lethargy. PT has been on BiPAP and 4 liters of oxygen. \\ Allergies and Home Medications Allergies Coded Allergies: sulfamethoxazole (Verified Allergy, Mild, RASH, 11/13/17) trimethoprim (Verified Allergy, Mild, RASH, 11/13/17) Home Medications Aspirin 81 Mg Tablet.dr, 81 MG PO HS, (Reported) Atorvastatin Calcium 10 Mg Tablet, 10 MG PO HS, (Reported) Carvedilol 12.5 Mg Tablet, 18.75 MG PO BID, (Reported) TAKES 1 & 1/2 (12.5MG) TABLETS Cholecalciferol (Vitamin D3) 2,000 Unit Tablet, 2,000 UNIT PO DAILY, (Reported) Clopidogrel Bisulfate 75 Mg Tablet, 75 MG PO DAILY, (Reported) Digoxin 125 Mcg Tablet, 125 MCG PO DAILY, (Reported) Ferrous Sulfate 325 Mg Tablet, 325 MG PO BID, (Reported) Furosemide 20 Mg Tablet, 40 MG PO DAILY Prescribed by: RUBEN SANCHEZ on 11/04/18925 Insuln Asp Prt/Insulin Aspart 300 Units/3 Ml Solution, 17 UNITS SQ 0800,2100, ( Reported) Ipratropium/Albuterol Sulfate 3 Ml Ampul.neb, 3 ML INH RTQ6HR Prescribed by: RUBEN SANCHEZ on 11/04/18925 Krill Oil 500 Mg Capsule, 500 MG PO DAILY, (Reported) Losartan Potassium 100 Mg Tablet, 100 MG PO DAILY, (Reported) Magnesium Oxide 400 Mg Tablet, 400 MG PO BIDPC Prescribed by: RUBEN SANCHEZ on 11/04/18925 Ondansetron HCl 4 Mg Tablet, 4 MG PO Q4H PRN for NAUSEA/VOMITING-1ST LINE, ( Reported) Ranitidine HCl 150 Mg Tablet, 150 MG PO BID, (Reported) Silver 480 Ml Gel.er.ml., TOP DAILY, (Reported) APPLY LEFT HEAL WOUND Trospium Chloride 60 Mg Cap.er.24h, 60 MG PO DAILY, (Reported) Warfarin Sodium 5 Mg Tablet, 7.5 MG PO SUN,MON,WED,SAT, (Reported) Warfarin Sodium 5 Mg Tablet, 5 MG PO TUES,THURS, (Reported) Past Vxynzel-Ciyvzw-Kcvfjj Hx Past Med/Social Hx: Reviewed Nursing Past Med/Soc Hx Patient Social History Alcohol Use: Denies Use Recreational Drug Use: No Smoking Status: Former Smoker Type Used: Cigarettes Former Smoker, Quit: Jul 29, 2005 2nd Hand Smoke Exposure: No Recent Foreign Travel: No Contact w/Someone Who Travel: No Recent Infectious Disease Expo: No Recent Hopitalizations: No Physical Abuse: No Sexual Abuse: No Immunizations Up To Date Tetanus Booster (TDap): Unknown PED Vaccines UTD: No Date of Pneumonia Vaccine: Jul 27, 2018 Date of Influenza Vaccine: Jul 27, 2018 Seasonal Allergies Seasonal Allergies: No Past Medical History Surgeries: Yes Eye Surgery, Orthopedic, Tonsillectomy, Transurethral Resection, Vascular Surgery Respiratory: Yes (02 4l at hs, used to wear cpap) Pneumonia, Sleep Apnea, COPD Currently Using CPAP: No (DOESN'T USE IT) Currently Using BIPAP: No Cardiac: Yes (LBBB) Atrial Fibrillation, Chronic Edema/Swelling, High Cholesterol, Hypertension, Peripheral Vascular Neurological: Yes (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) Neuropathy Reproductive Disorders: No Sexually Transmitted Disease: No HIV/AIDS: No Genitourinary: Yes (TURP) Benign Prostatic Hyperpl, Prostate Problems, Renal Failure, UTI-Chronic Gastrointestinal: Yes Gastroesophageal Reflux, Chronic Constipation Musculoskeletal: Yes (GENERALIZED WEAKNESS; FREQUENT FALLS ) Endocrine: Yes Diabetes, Insulin dep HEENT: Yes Cataract, Macular Degeneration Hearing Impairment: Hard of Hearing Cancer: Yes (BASAL CELL CARCINOMA) Skin Did You Recieve Any Treatments: No Psychosocial: Yes Sleep Difficulties Integumentary: Yes (CELLULITIS IN LEFT KNEE EARLY OCTOBER 2013; DIABETIC FOOT ULCER. ) Recent Skin Changes Blood Disorders: No Adverse Reaction/Blood Tranf: No Family Medical History COPD 19 FATHER Colon cancer 19 MOTHER Diabetes mellitus G8 SISTER Drug abuse G8 SISTER Lung cancer 19 FATHER Polio G8 BROTHER Sarcoidosis G8 BROTHER Cancer Review of Systems Time Seen by Provider: 07:12 Constitutional: Sweats, Weakness, Malaise Eyes: No: Pain, Vision change, Conjunctivae inflammation, Eyelid inflammation, Other, Redness ENT: No: Ear pain, Ear discharge, Nose pain, Nose discharge, Nose congestion, Mouth pain, Mouth swelling, Throat pain, Throat swelling, Other Respiratory: Cough, Dry, Shortness of breath, SOB with excertion Cardiovascular: Paroxysmal Noc. Dyspnea, Edema Neurological: Weakness, Incoordination, Confusion Sepsis Event Evaluation Height, Weight, BMI Height: 5'7.00" Weight: 213lbs. 0.0oz. 96.818100ji; 33.4 BMI Method:Stated Exam Exam Vital Signs Date Time Temp Pulse Resp B/P (MAP) Pulse Ox O2 Delivery O2 Flow Rate FiO2 11/07/18 06:51 95 Nasal Cannula 4.00 11/07/18 04:20 97.2 89 20 135/66 (89) 95 Nasal Cannula 4.00 11/07/18 01:00 83 11/06/18 23:02 97.0 77 18 113/61 (78) 100 Nasal Cannula 4.00 11/06/18 22:43 Nasal Cannula 4.00 11/06/18 22:40 97.0 81 20 143/85 93 Nasal Cannula 4.00 4.00 11/06/18 22:36 94 Nasal Cannula 4.00 11/06/18 21:31 81 11/06/18 20:30 Nasal Cannula 4.00 11/06/18 20:15 97.0 101 20 143/85 (104) 93 Nasal Cannula 4.00 11/06/18 20:01 95.9 93 18 100/60 (73) 95 11/06/18 18:00 95.9 93 18 100/60 95 11/06/18 15:15 95.9 93 18 100/60 (73) 95 Room Air I & O 11/07/18 07:00 Intake Total 1885 ml Balance 1885 ml Height & Weight Height: 5'7.00" Weight: 213lbs. 0.0oz. 96.948866eb; 33.4 BMI Method:Stated General Appearance: Anxious, Chronically ill, Mild Distress HEENT: PERRL/EOMI, Pharynx Normal Neck: Full Range of Motion, Normal Inspection, Non Tender, Supple Respiratory: Decreased Breath Sounds Capillary Refill: Less Than 3 Seconds Gastrointestinal: normal bowel sounds, non tender Neurologic/Psychiatric: Alert Skin: Normal Color, Warm/Dry Lymphatic: No Adenopathy Results Lab Laboratory Tests 11/06/18 17:45 11/07/18 05:26 Assessment/Plan Assessment/Plan Acute on chronic respiratory failure - with frequent readmissions -PT has required rehab at [facility] [place] secondary to respiratory failure. [facility] - with bilateral Pleural effusions -Lasix -BNP is 230 -Check TSH Anemia, with probable GIB -PT is getting transfused -PRotonix BID IV -Check occult stool -Monitor Atelectasis r/o PNA -Continue vanco and zosyn for now and bravo culture -IS -Increase activity Afib Anemia, with probable GIB -PT is getting transfused -PRotonix -Monitor Acute on chronic renal failure - baseline Cr since 07/16 is around 1.8 (Cr was normal 05/16) -Monitor close Dementia with home frequent falls -PT/OT KEIKO VALENZUELA DO Nov 07, 2018 07:04
[2018-11-07] MEDS: FUROSEMIDE 40 MG/4 ML INJ (LASIX) IV SCH (07:14)
[2018-11-07 08:51] LABS: INR 4.2 (0.8-1.4)
--- NOTE | 2018-11-07 09:39 | Diagnostic Imaging Report ---
Indication: Pneumonia. Time of exam: 3:34 AM Correlation is made to prior study from one day earlier. The heart is enlarged but stable. There are some patchy airspace infiltrates right mid and lower lung field which appear to be similar to perhaps increased when compared with yesterday. There is also some mild infiltrate in the left base, similar to prior. No effusion or pneumothorax is seen. Impression: Bilateral pulmonary infiltrates suggestive of pneumonia. Dictated by: Dictated on workstation # [id number]
[2018-11-07] MEDS: PANTOPRAZOLE 40 MG (PROTONIX) VIAL IV SCH ×2 (09:53→20:05)
[2018-11-07] MEDS ORDERED: IRON SUCROSE 200 MG/10 ML (VENOFER) VIAL IV SCH (11:30)
[2018-11-07] MEDS ORDERED: ACETAMINOPHEN 500 MG TAB (TYLENOL) PO PRN (11:30)
[2018-11-07] MEDS ORDERED: CALCIUM CARBONATE 500 MG (TUMS) TAB.CHEW PO PRN (11:30)
[2018-11-07] MEDS ORDERED: ONDANSETRON 4 MG (ZOFRAN) ORAL DISSOLVE TAB PO PRN (11:30)
[2018-11-07] MEDS ORDERED: DOCUSATE SODIUM 100 MG (COLACE) CAP PO PRN (11:30)
[2018-11-07] MEDS ORDERED: ONDANSETRON 4 MG/2 ML (SDV) Z0FRAN IVP PRN (11:30)
[2018-11-07] MEDS ORDERED: ALPRAZolam 0.25 MG (XANAX) TAB PO PRN (11:30)
--- NOTE | 2018-11-07 11:47 | History & Physical-Hospitalist ---
History of Present Illness HPI/Chief Complaint CC: Dyspnea HPI: This is an 83-year-old patient of Dr. Hugo Alexander who is familiar to me from multiple hospital stays most recently just discharged late last week to the [facility] because of severe debility and significant decline who presented to the ER due to hypoxia and altered mental status. Patient was found to have recurrent pneumonia and hypoxia requiring pulmonology consultation along with BiPAP administration and empiric antibiotics. He was admitted to room 418 for aggressive care. Had an in-depth discussion with the patient and his and he has chosen a DO NOT RESUSCITATE order so that was placed and he wishes to be on hospice because he doesn't want to be stuck anymore with needles and do any other testing. We will initiate 1 unit of blood to tide him over until Dr. Hugo Alexander returns on Friday for discharge back to the [facility] on hospice. Source: patient, family, RN/MD Exam Limitations: no limitations Date Seen 11/07/18 Time Seen by a Provider: 11:45 Attending Physician Paulina Mortensen Chad C MD Referring Physician Date of Admission Nov 06, 2018 at 18:00 Home Medications & Allergies Home Medications Reviewed patient Home Medication Reconciliation performed by pharmacy medication reconciliations geological technician and/or nursing. Patients Allergies have been reviewed. Allergies Allergies Coded Allergies sulfamethoxazole (Verified Allergy, Mild, RASH, 11/13/17) trimethoprim (Verified Allergy, Mild, RASH, 11/13/17) Past Ngsmvrb-Ascrba-Sqdnrx Hx Past Med/Social Hx: Reviewed Nursing Past Med/Soc Hx, Reviewed and Corrections made Patient Social History Marrital Status: Employed/Student: retired Alcohol Use: Denies Use Recreational Drug Use: No Smoking Status: Former Smoker Former Smoker, Quit: Jul 29, 2005 Type Used: Cigarettes 2nd Hand Smoke Exposure: No Physical Abuse Screen: No Sexual Abuse: No Recent Foreign Travel: No Contact w/other who traveled: No Recent Hopitalizations: No Recent Infectious Disease Expo: No Immunizations Up To Date Tetanus Booster (TDap): Unknown Pediatric: No Date of Pneumonia Vaccine: Jul 27, 2018 Date of Influenza Vaccine: Jul 27, 2018 Seasonal Allergies Seasonal Allergies: No Past Medical History Surgeries: Eye Surgery, Orthopedic, Tonsillectomy, Transurethral Resection, Vascular Surgery Respiratory: COPD, Pneumonia, Sleep Apnea Currently Using CPAP: No (DOESN'T USE IT) Currently Using BIPAP: No Cardiac: Atrial Fibrillation, Chronic Edema/Swelling, High Cholesterol, Hypertension, Peripheral Vascular Neurological: Neuropathy Reproductive: No Sexually Transmitted Disease: No HIV/AIDS: No Genitourinary: Benign Prostatic Hyperpl, Prostate Problems, Renal Failure, UTI- Chronic Gastrointestinal: Gastroesophageal Reflux, Chronic Constipation Endocrine: Diabetes, Insulin dep HEENT: Cataract, Macular Degeneration Hearing Impairment: Hard of Hearing Cancer: Skin Did You Recieve Any Treatments: No Psychosocial: Sleep Difficulties Skin/Integumentary: Recent Skin Changes History of Blood Disorders: No Adverse Reaction to Blood Brandt: No Family History COPD 19 FATHER Colon cancer 19 MOTHER Diabetes mellitus G8 SISTER Drug abuse G8 SISTER Lung cancer 19 FATHER Polio G8 BROTHER Sarcoidosis G8 BROTHER Cancer Review of Systems Constitutional: see HPI, weakness EENTM: no symptoms reported Respiratory: dyspnea on exertion, short of breath, wheezing Cardiovascular: no symptoms reported Gastrointestinal: no symptoms reported Genitourinary: no symptoms reported Musculoskeletal: no symptoms reported Skin: no symptoms reported Psychiatric/Neurological: No Symptoms Reported All Other Systems Reviewed Negative Unless Noted: Yes Physical Exam Physical Exam Vital Signs Vital Signs - First Documented 11/06/18 11/06/18 15:15 20:15 Temp 95.9 Pulse 93 Resp 18 B/P (MAP) 100/60 (73) Pulse Ox 95 O2 Delivery Room Air O2 Flow Rate 4.00 Capillary Refill : Less Than 3 Seconds Height, Weight, BMI Height: 5'7.00" Weight: 213lbs. 0.0oz. 96.619444ub; 33.4 BMI Method:Stated General Appearance: Anxious, Chronically ill, Mild Distress, Obese Eyes: Bilateral Eye Normal Inspection, Bilateral Eye PERRL HEENT: PERRL/EOMI, Pharynx Normal Neck: Full Range of Motion, Normal Inspection, Non Tender, Supple Respiratory: Crackles, Decreased Breath Sounds, Rales, Wheezing Cardiovascular: No Edema, No Gallop, No JVD, No Murmur, Normal Peripheral Pulses, Irregularly Irregular Gastrointestinal: Normal Bowel Sounds, No Organomegaly, No Pulsatile Mass, Non Tender, Soft Back: Normal Inspection, No CVA Tenderness, No Vertebral Tenderness Extremity: Normal Capillary Refill, Normal Inspection, Normal Range of Motion, Non Tender, No Calf Tenderness, No Pedal Edema Neurologic/Psychiatric: Alert, Oriented x3, No Motor/Sensory Deficits, Normal Mood/Affect, scrummaster II-XII Norm as Tested Skin: Normal Color, Warm/Dry Lymphatic: No Adenopathy Results Results/Procedures Labs Laboratory Tests 11/06/18 17:45 11/07/18 05:26 Patient resulted labs reviewed. Assessment/Plan Admission Diagnosis Assessment: Acute on chronic respiratory insufficiency requiring BiPAP Recurrent pneumonia just discharged 2 days ago to [facility] Chronic atrial fibrillation Coagulopathy due to Coumadin Severe anemia requiring transfusion Severe debility patient decided on DO NOT RESUSCITATE and hospice Plan: Transfuse 1 unit of blood studies with the 2 I ordered given the fact he does not want anymore Labstix her ABG or any other testing Maintain status until Friday when Dr. Alexander will return in discharge to [facility] on hospice Updated Dr. Herring and Dr. Niño regarding the patient's choice and DO NOT RESUSCITATE order was placed Admission Status: Inpatient Order (span 2 midnights) Reason for Inpatient Admission: Respi insuff with recurrent pneumonia and severe anemia will require 3 days of inpt Diagnosis/Problems Diagnosis/Problems (1) Pneumonia Status: Acute Qualifiers: Pneumonia type: due to unspecified organism Laterality: bilateral Lung location: lower lobe of lung Qualified Codes: J18.1 - Lobar pneumonia, unspecified organism (2) DNR (do not resuscitate) Status: Acute (3) Encounter for hospice care discussion Status: Acute (4) Hypoxia Status: Acute (5) Acute on chronic respiratory failure Status: Acute Qualifiers: Respiratory failure complication: unspecified whether with hypoxia or hypercapnia Qualified Codes: J96.20 - Acute and chronic respiratory failure, unspecified whether with hypoxia or hypercapnia (6) Chronic renal insufficiency Status: Chronic Qualifiers: Chronic kidney disease stage: stage 3 (moderate) Qualified Codes: N18.3 - Chronic kidney disease, stage 3 (moderate) (7) Physical debility Status: Chronic (8) Acute on chronic diastolic (congestive) heart failure Status: Acute (9) Anticoagulant long-term use Status: Chronic (10) Falls frequently Status: Chronic (11) HTN (hypertension) Status: Chronic Qualifiers: Hypertension type: essential hypertension Qualified Codes: I10 - Essential (primary) hypertension (12) Anemia Status: Chronic Qualifiers: Anemia type: unspecified type Qualified Codes: D64.9 - Anemia, unspecified (13) IDDM (insulin dependent diabetes mellitus) Status: Chronic (14) COPD exacerbation Status: Acute (15) Chronic atrial fibrillation Status: Chronic Clinical Quality Measures DVT/VTE Risk/Contraindication: Risk Factor Score Per Nursin RFS Level Per Nursing on Admit: 4+=Very High PAULINA MORTENSEN DO Nov 07, 2018 11:47
[2018-11-07] MEDS ORDERED: FUROSEMIDE 40 MG/4 ML INJ (LASIX) IVP ONE (12:00)
--- NOTE | 2018-11-07 12:42 | Consultation-Cardiology ---
HPI-Cardiology Cardiology Consultation Date of Consultation 11/07/18 Date of Admission Time Seen by Provider: 12:37 Indication: generalized weakness and loss of energyand HPI 83 years old gentleman with extensive cardiovascular history, admitted with increasing weakness and shortness of breath. Patient was discharged recently from the hospital, on admission was noted to have severe anemia, patient is fairly tired and frustrated, requested to be DO NOT RESUSCITATE. He denied any chest pain. No palpitation. No fever or chills. No syncope or near syncopal episodes. His pedal edema is better, has multiple bruising Home Medications & Allergies Allergies: Coded Allergies: sulfamethoxazole (Verified Allergy, Mild, RASH, 11/13/17) trimethoprim (Verified Allergy, Mild, RASH, 11/13/17) Home Medication List Reviewed: Yes LYF-Bjfuhv-Othpfh Hx Patient Social History Marital Status: Employed/Student: retired Alcohol Use: Denies Use Recreational Drug Use: No Smoking Status: Former Smoker Former smoker/When Quit: Apr 24, 2005 Type Used: Cigarettes 2nd Hand Smoke Exposure: No Recent Foreign Travel: No Recent Infectious Disease Expo: No Recent Hopitalizations: No Physical Abuse Screen: No Sexual Abuse: No Immunizations Up To Date Tetanus Booster (TDap): Unknown Date of Pneumonia Vaccine: Jul 27, 2018 Date of Influenza Vaccine: Jul 27, 2018 Past Medical History past medical history as described Family Medical History Significant Family History: Cancer Family History: COPD 19 FATHER Colon cancer 19 MOTHER Diabetes mellitus G8 SISTER Drug abuse G8 SISTER Lung cancer 19 FATHER Polio G8 BROTHER Sarcoidosis G8 BROTHER Review of Systems Constitutional: see HPI, malaise, weakness EENTM: see HPI Respiratory: see HPI; No cough; dyspnea on exertion; No hemoptysis, No orthopnea, No phlegm, No short of breath, No stridor, No wheezing, No other Cardiovascular: see HPI; No chest pain; edema; No Hx of Intervention, No palpitations, No syncope, No vascular heart diseas, No other Gastrointestinal: no symptoms reported, see HPI Genitourinary: no symptoms reported, see HPI Musculoskeletal: see HPI, back pain, joint pain, muscle weakness Skin: see HPI, change in color Psychiatric/Neurological: No Symptoms Reported, See HPI Reviewed Test Results Reviewed Test Results Lab Laboratory Tests Test 11/06/18 17:45 11/07/18 05:26 11/07/18 05:36 Range/Units White Blood Count 11.9 H 8.3 4.3-11.0 10^3/uL Red Blood Count 2.38 L 2.08 L 4.35-5.85 10^6/uL Hemoglobin 7.2 L 6.1 *L 13.3-17.7 G/DL Hematocrit 21 L 19 *L 40-54 % Mean Corpuscular Volume 90 89 80-99 FL Mean Corpuscular Hemoglobin 30 29 25-34 PG Mean Corpuscular Hemoglobin Concent 34 33 32-36 G/DL Red Cell Distribution Width 14.4 14.3 10.0-14.5 % Platelet Count 173 151 130-400 10^3/uL Mean Platelet Volume 11.0 H 10.6 H 7.4-10.4 FL Neutrophils (%) (Auto) 63 71 42-75 % Lymphocytes (%) (Auto) 12 9 L 12-44 % Monocytes (%) (Auto) 24 H 20 H 0-12 % Eosinophils (%) (Auto) 1 1 0-10 % Basophils (%) (Auto) 0 0 0-10 % Neutrophils # (Auto) 7.5 5.8 1.8-7.8 X 10^3 Lymphocytes # (Auto) 1.4 0.7 L 1.0-4.0 X 10^3 Monocytes # (Auto) 2.8 H 1.6 H 0.0-1.0 X 10^3 Eosinophils # (Auto) 0.1 0.1 0.0-0.3 10^3/uL Basophils # (Auto) 0.0 0.0 0.0-0.1 10^3/uL Neutrophils % (Manual) 72 % Lymphocytes % (Manual) 11 % Monocytes % (Manual) 8 % Eosinophils % (Manual) 3 % Basophils % (Manual) 0 % Metamyelocytes % 2 % Band Neutrophils 4 % Anisocytosis SLIGHT Spherocytes MODERATE Sodium Level 138 139 135-145 MMOL/L Potassium Level 3.8 3.0 L 3.6-5.0 MMOL/L Chloride Level 105 107 98-107 MMOL/L Carbon Dioxide Level 23 23 21-32 MMOL/L Anion Gap 10 9 5-14 MMOL/L Blood Urea Nitrogen 59 H 52 H 7-18 MG/DL Creatinine 2.28 H 2.21 H 0.60-1.30 MG/DL Estimat Glomerular Filtration Rate 28 29 BUN/Creatinine Ratio 26 24 Glucose Level 46 *L 79 70-105 MG/DL Lactic Acid Level 0.94 0.50-2.00 MMOL/L Calcium Level 8.4 L 8.0 L 8.5-10.1 MG/DL Corrected Calcium 10.1 9.8 8.5-10.1 MG/DL Total Bilirubin 0.7 0.7 0.1-1.0 MG/DL Aspartate Amino Transf (AST/SGOT) 23 15 5-34 U/L Alanine Aminotransferase (ALT/SGPT) 18 17 0-55 U/L Alkaline Phosphatase 41 51 40-136 U/L Troponin I 0.064 <0.028 NG/ML B-Type Natriuretic Peptide 230.5 H 258.0 H <100.0 PG/ML Total Protein 5.2 L 4.6 L 6.4-8.2 GM/DL Albumin 1.9 L 1.8 L 3.2-4.5 GM/DL Prothrombin Time 41.0 H 12.2-14.7 SEC INR Comment 4.2 H 0.8-1.4 Activated Partial Thromboplast Time 79 H 24-35 SEC Thyroid Stimulating Hormone (TSH) 0.81 0.35-4.94 UIU/ML Physical Exam Vital Signs Vital Signs - First Documented 11/06/18 11/06/18 15:15 20:15 Temp 95.9 Pulse 93 Resp 18 B/P (MAP) 100/60 (73) Pulse Ox 95 O2 Delivery Room Air O2 Flow Rate 4.00 Capillary Refill : Less Than 3 Seconds Height, Weight, BMI Height: 5'7.00" Weight: 213lbs. 0.0oz. 96.608624mc; 33.4 BMI Method:Stated General Appearance: No Apparent Distress, WD/WN Eyes: Bilateral Eye Normal Inspection, Bilateral Eye PERRL, Bilateral Eye EOMI HEENT: PERRL/EOMI, TMs Normal, Normal ENT Inspection, Pharynx Normal Neck: Full Range of Motion, Normal Inspection, Non Tender, Supple, Carotid Bruit Respiratory: Chest Non Tender, Lungs Clear, Normal Breath Sounds, No Accessory Muscle Use, No Respiratory Distress Cardiovascular: Regular Rate, Rhythm, No Edema, No Gallop, No JVD, No Murmur, Normal Peripheral Pulses Gastrointestinal: Normal Bowel Sounds, No Organomegaly, No Pulsatile Mass, Non Tender, Soft Back: Normal Inspection, No CVA Tenderness, No Vertebral Tenderness Extremity: Normal Capillary Refill, Normal Inspection, Normal Range of Motion, Non Tender, No Calf Tenderness, No Pedal Edema Neurologic/Psychiatric: Alert, Oriented x3, No Motor/Sensory Deficits, Normal Mood/Affect Skin: Normal Color, Warm/Dry Lymphatic: No Adenopathy A/P-Cardiology Admission Diagnosis Severe anemia Generalized weakness COPD Peripheral arterial disease Assessment/Plan Severe anemia, patient has a drop in H&H, receiving one unit of packed RBCs and monitor tolerance and response Generalized weakness and loss of energy, could be secondary to multiple comorbid condition. Continue to monitor at this time. Shortness of breath, History of COPD, generalized shortness of breath and loss of energy. Congestive heart failure, acute on chronic left ventricular systolic dysfunction , nonischemic cardiomyopathy, ejection fraction 45-50 percent with mild hypokinesia at the anterior wall. No previous history of coronary artery disease, had borderline stress test in February 2018 with mild decreased uptake at the mid to apical inferior wall with mild reversibility. Normal left ventricular function at that time. Continue to monitor Chronic atrial fibrillation, rate controlled, unable to tolerate oral anticoagulation secondary to the active bleeding and severe anemia [id number] score is 4, yearly risk of stroke without oral anticoagulation is 4 percent. has been on Coumadin, hold for now Hypertension, and monitor blood pressure Acute on chronic renal insufficiency, continue to monitor renal function Peripheral vascular disease, extensive disease, multiple interventions in the past, last procedure was done on July 29, 2018 after having abnormal RANULFO with deployment of 2 overlapping Supera stents in the left SFA 6.0150 and 6.0 100 with excellent results and reduction of severe stenosis into no residual stenosis. Balloon angioplasty to the left tibial peroneal trunk that has severe stenosis/subtotal occlusion with excellent results and mild residual recoil. Diffuse atherosclerotic disease in the anterior tibial artery that is treated medically. Right lower extremity runoff showed moderate disease in the SFA and popliteal with very slow flow below the trifurcation. discontinue aspirin and Plavix due to the active bleeding, monitor closely Chronic venous insufficiency, seen by Dr. Castro in [place], status post ablation by Dr. Castro on the right side. Hyperlipidemia, monitor lipids COPD, Obstructive sleep apnea, history of prolonged respiratory failure and transferred to [facility], managed by Dr. Herring Diabetes mellitus. Followed and managed by primary care physician. Continue to monitor Diabetic neuropathy. Mild bilateral carotid stenosis, last ultrasound was done in June 2018. Continue to monitor. Clinical Quality Measures DVT/VTE Risk/Contraindication: Risk Factor Score Per Nursin RFS Level Per Nursing on Admit: 4+=Very High KEELEY ROSSI MD Nov 07, 2018 12:42
[2018-11-07] MEDS: DIGOXIN 0.125 MG (LANOXIN) TAB PO SCH (13:48)
[2018-11-07] MEDS: CARVEDILOL 12.5 MG (COREG) TABLET PO SCH ×2 (13:49→20:32)
[2018-11-07] MEDS: SILVASORB GEL 1.5 OZ TP SCH (13:57)
[2018-11-07] MEDS ORDERED: RT-ALBUTEROL/IPRATROPIUM 3 ML (DUONEB) VIAL INH SCH (15:00)
[2018-11-07] MEDS ORDERED: TROUGH ORDER-PHARMACY XX NR (17:00)
[2018-11-07] MEDS ORDERED: VANCOMYCIN 1500 MG/NS 500 ML IVPB IV SCH ×2 (18:00)
[2018-11-07] MEDS: TROSPIUM 20 MG (SANCTURA) TAB PO SCH (18:16)
[2018-11-07] MEDS: MAGNESIUM OXIDE (MAG-OX)400 MG TAB PO SCH (18:18)
[2018-11-07] MEDS ORDERED: LIDOCAINE UROJET 2% GEL 10 ML PKG ONE (18:51)
[2018-11-07] MEDS: FAMOTIDINE 20 MG (PEPCID) TABLET PO SCH (19:46)
[2018-11-07] MEDS: MELATONIN 3 MG TABLET PO PRN (19:46)
[2018-11-07] MEDS: NS IV 1000 ML 1,000 ML IV SCH (19:48)
[2018-11-07] MEDS: inSUlin Protamine/ASPart 70/30 1 UNIT/0.01 ML DOSE SQ SCH (21:11)
[2018-11-07] MEDS: FUROSEMIDE 40 MG/4 ML INJ (LASIX) IVP PRN (21:27)
--- NOTE | 2018-11-07 21:33 | NUR ---
PT'S LUNGS COURSE WITH AUDIBLE WET COUGH. DR. MORTENSEN NOTIFIED, NEW ORDERS RECEIVED: HEP LOCK IV, LASIX 20MG IV Q8HRS PRN DYSPNEA WILL CONTINUE TO MONITOR.
[2018-11-08] MEDS: PIPERACILLIN/TAZO 4.5 GM/NS 100 ML IV SCH ×6 (01:44→17:30)
[2018-11-08 03:09] VITALS: BP 121/58
[2018-11-08] MEDS: FUROSEMIDE 40 MG/4 ML INJ (LASIX) IV SCH (06:19)
[2018-11-08 08:00] VITALS: BP 122/58
[2018-11-08] MEDS: RT-ALBUTEROL/IPRATROPIUM 3 ML (DUONEB) VIAL IH SCH ×4 (08:02→19:55)
[2018-11-08] MEDS: FAMOTIDINE 20 MG (PEPCID) TABLET PO SCH ×2 (08:29→19:28)
[2018-11-08] MEDS: DIGOXIN 0.125 MG (LANOXIN) TAB PO SCH (08:29)
[2018-11-08] MEDS: MAGNESIUM OXIDE (MAG-OX)400 MG TAB PO SCH ×2 (08:29→17:56)
[2018-11-08] MEDS: CARVEDILOL 12.5 MG (COREG) TABLET PO SCH ×2 (08:29→19:28)
[2018-11-08] MEDS: inSUlin Protamine/ASPart 70/30 1 UNIT/0.01 ML DOSE SQ SCH ×2 (08:30→21:23)
[2018-11-08] MEDS: PANTOPRAZOLE 40 MG (PROTONIX) VIAL IV SCH ×2 (08:30→19:27)
[2018-11-08] MEDS: SILVASORB GEL 1.5 OZ TP SCH (08:46)
--- NOTE | 2018-11-08 11:09 | Pulmonary Progress Note ---
Subjective Time Seen by a Provider: 12:54 Subjective/Events-last exam Pt is more confused today. Sepsis Event Evaluation Height, Weight, BMI Height: 5'7.00" Weight: 213lbs. 0.0oz. 96.146258hv; 33.4 BMI Method:Stated Focused Exam Lactate Level 11/06/18 17:45: Lactic Acid Level 0.94 Exam Exam Vital Signs Date Time Temp Pulse Resp B/P (MAP) Pulse Ox O2 Delivery O2 Flow Rate FiO2 11/08/18 08:05 83 11/08/18 03:09 99.8 78 22 121/58 (79) 96 Nasal Cannula 4.00 11/08/18 01:00 86 11/07/18 23:03 98.6 81 22 127/53 (77) 93 Nasal Cannula 4.00 11/07/18 20:42 Nasal Cannula 4.00 11/07/18 19:51 84 11/07/18 19:51 99.7 129/59 11/07/18 19:17 92 Nasal Cannula 4.00 11/07/18 19:15 98.1 84 22 149/69 (95) 92 Nasal Cannula 4.00 11/07/18 19:00 90 11/07/18 17:45 97.8 87 32 133/61 95 Room Air 4.00 11/07/18 17:22 97.7 86 40 147/67 94 Nasal Cannula 4.00 11/07/18 16:49 97.1 98 20 99/66 (77) 94 Nasal Cannula 4.00 11/07/18 14:12 95 Nasal Cannula 4.00 11/07/18 13:00 80 11/07/18 12:00 99.2 76 20 127/60 (82) 97 Nasal Cannula 4.00 I & O 11/08/18 07:00 Intake Total 2660 ml Output Total 1250 ml Balance 1410 ml Height & Weight Height: 5'7.00" Weight: 213lbs. 0.0oz. 96.310692uf; 33.4 BMI Method:Stated General Appearance: Anxious, Chronically ill, Mild Distress, Obese HEENT: PERRL/EOMI, Pharynx Normal Neck: Full Range of Motion, Normal Inspection, Non Tender, Supple Respiratory: Crackles, Decreased Breath Sounds, Rales, Wheezing Cardiovascular: No Edema, No Gallop, No JVD, No Murmur, Normal Peripheral Pulses, Irregularly Irregular Capillary Refill: Less Than 3 Seconds Gastrointestinal: normal bowel sounds, non tender Extremity: Normal Capillary Refill, Normal Inspection, Normal Range of Motion, Non Tender, No Calf Tenderness, No Pedal Edema Neurologic/Psychiatric: Alert, Oriented x3, No Motor/Sensory Deficits, Normal Mood/Affect, hop separator II-XII Norm as Tested Skin: Normal Color, Warm/Dry Lymphatic: No Adenopathy Results Lab Laboratory Tests 11/06/18 17:45 11/07/18 05:26 Assessment/Plan Assessment/Plan Acute on chronic respiratory failure - with frequent readmissions -PT has required rehab at [facility] secondary to respiratory failure. Anemia, with probable GIB -Monitor Atelectasis with PNA - vanco and zosyn for now and bravo culture -IS -Increase activity Afib Plan is home with hospice tomorrow KEIKO VALENZUELA DO Nov 08, 2018 11:08
[2018-11-08 12:00] VITALS: BP 103/74
--- NOTE | 2018-11-08 12:20 | Cardiology Progress Note ---
Subjective Date Seen by Provider: Nov 08, 2018 Time Seen by Provider: 12:18 Subjective/Events-last exam patient is sitting in bed, confused, was refusing blood work, after I discussed it with him in length, he agreed on doing the blood work today Review of Systems General: No Chills, No Night Sweats; Fatigue, Malaise; No Appetite, No Other HEENT: No Head Aches, No Visual Changes, No Eye Pain, No Ear Pain, No Dysphasia , No Sinus Congestion, No Post Nasal Drip, No Sore Throat, No Other Pulmonary: Dyspnea; No Cough, No Pleuritic Chest Pain, No Other Cardiovascular: Edema; No: Chest Pain, Palpitations, Orthopnea, Paroxysmal Noc. Dyspnea, Lt Headedness, Other Focused Exam Lactate Level 11/06/18 17:45: Lactic Acid Level 0.94 Objective-Cardiology Exam Last Set of Vital Signs Vital Signs 11/08/18 11/08/18 08:00 08:05 Temp 99.0 Pulse 83 Resp 20 B/P (MAP) 122/58 (79) Pulse Ox 94 O2 Delivery Nasal Cannula O2 Flow Rate 4.00 Capillary Refill : Less Than 3 Seconds I&O Intake and Output 11/08/18 00:00 Intake Total 2660 ml Output Total 650 ml Balance 2010 ml Intake Oral 1420 ml IV Total 1240 ml Output Urine Total 650 ml # Voids 7 # Bowel Movements 1 General: Alert, Cooperative, Mild Distress, Other (confused) HEENT: Atraumatic, PERRLA Neck: Supple, No JVD, No Thyromegaly Lungs: Normal Air Movement, Other (bilateral rhonchi) Heart: Regular Rate, Normal S1, Normal S2, Other (systolic murmur) Abdomen: Normal Bowel Sounds, Soft, No Tenderness, No Hepatosplenomegaly, No Masses Extremities: No Clubbing, No Cyanosis, No Edema, Normal Pulses, No Tenderness/ Swelling Skin: No Rashes, No Breakdown, No Significant Lesion Neuro: Normal Gait, Normal Tone Psych/Mental Status: Mood NL, Other (confused) Results Lab Laboratory Tests Test 11/07/18 20:40 11/08/18 08:07 11/08/18 11:35 Range/Units Glucometer 142 H 134 H 175 H 70-110 MG/DL A/P-Cardiology Admission Diagnosis Severe anemia Generalized weakness COPD Peripheral arterial disease Assessment/Plan Severe anemia, patient has a drop in H&H, and was refusing blood work, I'll reevaluate CBC and INR level, I had a long discussion with the patient and he agreed on having the blood work done Generalized weakness and loss of energy, could be secondary to multiple comorbid condition. Continue to monitor at this time. Shortness of breath, History of COPD, generalized shortness of breath and loss of energy. Congestive heart failure, acute on chronic left ventricular systolic dysfunction , nonischemic cardiomyopathy, ejection fraction 45-50 percent with mild hypokinesia at the anterior wall. No previous history of coronary artery disease, had borderline stress test in February 2018 with mild decreased uptake at the mid to apical inferior wall with mild reversibility. Normal left ventricular function at that time. Continue to monitor Chronic atrial fibrillation, rate controlled, unable to tolerate oral anticoagulation secondary to the active bleeding and severe anemia [id number] score is 4, yearly risk of stroke without oral anticoagulation is 4 percent. has been on Coumadin, hold for now Hypertension, and monitor blood pressure Acute on chronic renal insufficiency, continue to monitor renal function Peripheral vascular disease, extensive disease, multiple interventions in the past, last procedure was done on July 29, 2018 after having abnormal RANULFO with deployment of 2 overlapping Supera stents in the left SFA 6.0150 and 6.0 100 with excellent results and reduction of severe stenosis into no residual stenosis. Balloon angioplasty to the left tibial peroneal trunk that has severe stenosis/subtotal occlusion with excellent results and mild residual recoil. Diffuse atherosclerotic disease in the anterior tibial artery that is treated medically. Right lower extremity runoff showed moderate disease in the SFA and popliteal with very slow flow below the trifurcation. discontinue aspirin and Plavix due to the active bleeding, monitor closely Chronic venous insufficiency, seen by Dr. Castro in [place], status post ablation by Dr. Castro on the right side. Hyperlipidemia, monitor lipids COPD, Obstructive sleep apnea, history of prolonged respiratory failure and transferred to [facility], managed by Dr. Herring Diabetes mellitus. Followed and managed by primary care physician. Continue to monitor Diabetic neuropathy. Mild bilateral carotid stenosis, last ultrasound was done in June 2018. Continue to monitor. Clinical Quality Measures DVT/VTE Risk/Contraindication: Risk Factor Score Per Nursin RFS Level Per Nursing on Admit: 4+=Very High KEELEY ROSSI MD Nov 08, 2018 12:20
[2018-11-08 12:49] LABS: MEAN PLATELET VOLUME 10.2 FL (7.4-10.4); RED CELL DISTRIBUTION WIDTH 14.3 % (10.0-14.5); WHITE BLOOD COUNT 9.8 10^3/uL (4.3-11.0)
[2018-11-08 13:09] LABS: ALBUMIN 1.8 GM/DL (3.2-4.5); BILIRUBIN,TOTAL 0.9 MG/DL (0.1-1.0); CALCIUM 7.8 MG/DL (8.5-10.1); CREATININE SERUM 2.71 MG/DL (0.60-1.30); POTASSIUM 3.1 MMOL/L (3.6-5.0); TOTAL PROTEIN 4.9 GM/DL (6.4-8.2)
--- NOTE | 2018-11-08 13:17 | Progress Note-Hospitalist ---
Progress Note Progress Notes/Assess & Plan Date Seen 11/08/18 Time Seen by Provider: 13:13 Assessment & Plan The patient is an 83-year-old white male whom I have known for 40 years. In the past I took care of his mother sister and . He has end-stage pulmonary disease and recurrent pneumonias. He was previously admitted from 10/27 through and again 11/01 through and now returned on 11/06. He is very marginal on a day-to-day basis with regard to his pulmonary status. He agrees that there will need to be planning as to where he is discharged and also that he is interested in hospice status. Physical exam: He is on O2 by nasal cannula. His vital signs are stable. Lungs reveal very distant breath sounds without wheezing or rhonchi. CV is regular. Extremities show no pedal edema. Impression: End-stage respiratory disease. 2.recurrent pneumonia. 3.chronic supplementary O2. Plan: medical services coordinator planning tomorrow. Focused Exam Lactate Level 11/06/18 17:45: Lactic Acid Level 0.94 MARILOU RODAS MD Nov 08, 2018 13:17
[2018-11-08 16:30] VITALS: BP 127/63
[2018-11-08] MEDS: TROSPIUM 20 MG (SANCTURA) TAB PO SCH (16:36)
[2018-11-08] MEDS: MELATONIN 3 MG TABLET PO PRN (19:28)
[2018-11-09] VITALS: BP 117/58
[2018-11-09] MEDS: PIPERACILLIN/TAZO 4.5 GM/NS 100 ML IV SCH ×6 (00:40→16:34)
[2018-11-09 01:04] VITALS: BP 117/58
[2018-11-09] MEDS: FUROSEMIDE 40 MG/4 ML INJ (LASIX) IV SCH (05:48)
[2018-11-09 06:19] LABS: INR 4.4 (0.8-1.4); PROTHROMBIN TIME PATIENT 42.4 SEC (12.2-14.7)
[2018-11-09] MEDS: RT-ALBUTEROL/IPRATROPIUM 3 ML (DUONEB) VIAL IH SCH ×4 (07:37→20:32)
[2018-11-09 08:07] VITALS: BP 121/56
--- NOTE | 2018-11-09 08:36 | Cardiology Progress Note ---
Subjective Date Seen by Provider: Nov 09, 2018 Time Seen by Provider: 08:35 Subjective/Events-last exam patient is laying down in bed, complains of fatigue, loss of energy Review of Systems General: No Chills, No Night Sweats; Fatigue, Malaise; No Appetite, No Other HEENT: No Head Aches, No Visual Changes, No Eye Pain, No Ear Pain, No Dysphasia , No Sinus Congestion, No Post Nasal Drip, No Sore Throat, No Other Pulmonary: Dyspnea, Cough; No Pleuritic Chest Pain, No Other Cardiovascular: No: Chest Pain, Palpitations, Orthopnea, Paroxysmal Noc. Dyspnea, Edema, Lt Headedness, Other Focused Exam Lactate Level 11/06/18 17:45: Lactic Acid Level 0.94 Objective-Cardiology Exam Last Set of Vital Signs Vital Signs 11/09/18 08:07 Temp 98.8 Pulse 76 Resp 18 B/P (MAP) 121/56 (77) Pulse Ox 95 O2 Delivery Nasal Cannula O2 Flow Rate 5.00 Capillary Refill : Less Than 3 Seconds I&O Intake and Output 11/09/18 00:00 Intake Total 2090 ml Output Total 1875 ml Balance 215 ml Intake Oral 1850 ml IV Total 240 ml Output Urine Total 1875 ml # Bowel Movements 1 General: Alert, Cooperative, Mild Distress, Other (confused) HEENT: Atraumatic, PERRLA Neck: Supple, No JVD, No Thyromegaly Lungs: Normal Air Movement, Other (bilateral rhonchi) Heart: Regular Rate, Normal S1, Normal S2, Other (systolic murmur) Abdomen: Normal Bowel Sounds, Soft, No Tenderness, No Hepatosplenomegaly, No Masses Extremities: No Clubbing, No Cyanosis, No Edema, Normal Pulses, No Tenderness/ Swelling Skin: No Rashes, No Breakdown, No Significant Lesion Neuro: Normal Gait, Normal Tone Psych/Mental Status: Mood NL, Other (confused) Results Lab Laboratory Tests 11/08/18 12:42 A/P-Cardiology Admission Diagnosis Severe anemia Generalized weakness COPD Peripheral arterial disease Assessment/Plan Anemia, worsening, still have elevated INR, will need blood transfusion. Managed by Dr. Alexander Generalized weakness and loss of energy, could be secondary to multiple comorbid condition. Continue to monitor at this time. Shortness of breath, History of COPD, generalized shortness of breath and loss of energy. Congestive heart failure, acute on chronic left ventricular systolic dysfunction , nonischemic cardiomyopathy, ejection fraction 45-50 percent with mild hypokinesia at the anterior wall. No previous history of coronary artery disease, had borderline stress test in February 2018 with mild decreased uptake at the mid to apical inferior wall with mild reversibility. Normal left ventricular function at that time. Continue to monitor Chronic atrial fibrillation, rate controlled, unable to tolerate oral anticoagulation secondary to the active bleeding and severe anemia [id number] score is 4, yearly risk of stroke without oral anticoagulation is 4 percent. has been on Coumadin, on hold now, may discontinue Coumadin permanently due to the severe anemia and recurrent blood loss Hypertension, monitor blood pressure Acute on chronic renal insufficiency, continue to monitor renal function Peripheral vascular disease, extensive disease, multiple interventions in the past, last procedure was done on July 29, 2018 after having abnormal RANULFO with deployment of 2 overlapping Supera stents in the left SFA 6.0150 and 6.0 100 with excellent results and reduction of severe stenosis into no residual stenosis. Balloon angioplasty to the left tibial peroneal trunk that has severe stenosis/subtotal occlusion with excellent results and mild residual recoil. Diffuse atherosclerotic disease in the anterior tibial artery that is treated medically. Right lower extremity runoff showed moderate disease in the SFA and popliteal with very slow flow below the trifurcation. discontinue aspirin and Plavix due to the active bleeding, monitor closely Chronic venous insufficiency, seen by Dr. Castro in [place], status post ablation by Dr. Castro on the right side. Hyperlipidemia, monitor lipids COPD, Obstructive sleep apnea, history of prolonged respiratory failure and transferred to [facility], managed by Dr. Herring Diabetes mellitus. Followed and managed by primary care physician. Continue to monitor Diabetic neuropathy. Mild bilateral carotid stenosis, last ultrasound was done in June 2018. Continue to monitor. Clinical Quality Measures DVT/VTE Risk/Contraindication: Risk Factor Score Per Nursin RFS Level Per Nursing on Admit: 4+=Very High KEELEY ROSSI MD Nov 09, 2018 08:36
[2018-11-09] MEDS: FAMOTIDINE 20 MG (PEPCID) TABLET PO SCH ×2 (09:00→20:50)
[2018-11-09] MEDS: CARVEDILOL 12.5 MG (COREG) TABLET PO SCH ×2 (09:00→20:50)
[2018-11-09] MEDS: DIGOXIN 0.125 MG (LANOXIN) TAB PO SCH (09:00)
[2018-11-09] MEDS: MAGNESIUM OXIDE (MAG-OX)400 MG TAB PO SCH ×2 (09:00→16:30)
[2018-11-09] MEDS: inSUlin Protamine/ASPart 70/30 1 UNIT/0.01 ML DOSE SQ SCH ×2 (09:01→20:49)
[2018-11-09] MEDS: SILVASORB GEL 1.5 OZ TP SCH (09:01)
[2018-11-09] MEDS: PANTOPRAZOLE 40 MG (PROTONIX) VIAL IV SCH (09:01)
[2018-11-09] MEDS ORDERED: FURO20TA4 PO (09:42)
[2018-11-09] MEDS ORDERED: MAGN400T39 PO (09:42)
[2018-11-09] MEDS ORDERED: IPRA3AMP31 NEB (09:42)
--- NOTE | 2018-11-09 09:43 | NUR ---
UPDATED MED REC WITH MAR FROM [facility].
--- NOTE | 2018-11-09 11:42 | NUR ---
Palliative Care RN in to see patient. Talked to he and his about POC moving forward. Patient has had 3 readmission to the hospital since his initial admission mid September. Recently accepted to [facility] for skilled therapies. Long discussion with the patient and the and then with Dr. Alexander to discuss about POC. Plan will be to return to [facility] for skilled care with the understanding that if he decompensates they will not readmit to the hospital rather make him [facility] with hospice involvement. Discussed hospice choices with Debby who has elected to speak with [facility] before making a final decision. Hospice discussion is only in an effort to have a plan in place if he does not do well and again has a respiratory failure exacerbation. Addendum: 11/09/18 at 1158 by JOSE E MOODY RN Change the requested hospices to [facility].
--- NOTE | 2018-11-09 15:44 | NUR ---
Pastoral care visit.
[2018-11-09 16:25] VITALS: BP 133/60
[2018-11-09] MEDS: TROSPIUM 20 MG (SANCTURA) TAB PO SCH (16:30)
[2018-11-09] MEDS: FUROSEMIDE 40 MG/4 ML INJ (LASIX) IVP PRN (16:31)
--- NOTE | 2018-11-09 16:55 | Pulmonary Progress Note ---
Subjective Time Seen by a Provider: 17:00 Subjective/Events-last exam PT appears confused. He is wanting to talk to the Nurse and is wanting out of bed. Sepsis Event Evaluation Height, Weight, BMI Height: 5'7.00" Weight: 213lbs. 0.0oz. 96.396526kh; 33.4 BMI Method:Stated Focused Exam Lactate Level 11/06/18 17:45: Lactic Acid Level 0.94 Exam Exam Vital Signs Date Time Temp Pulse Resp B/P (MAP) Pulse Ox O2 Delivery O2 Flow Rate FiO2 11/09/18 16:25 96.3 84 14 133/60 (84) 95 Nasal Cannula 5.00 11/09/18 08:07 98.8 76 18 121/56 (77) 95 Nasal Cannula 5.00 11/09/18 08:00 Nasal Cannula 4.00 11/09/18 07:37 91 Nasal Cannula 5.00 11/09/18 01:04 97.5 73 14 117/58 (77) 95 Nasal Cannula 4.00 11/09/18 00:00 97.5 73 14 117/58 (77) 95 Nasal Cannula 4.00 11/08/18 20:28 Nasal Cannula 4.00 11/08/18 19:55 88 Nasal Cannula 4.00 I & O 11/09/18 07:00 Intake Total 2590 ml Output Total 1800 ml Balance 790 ml Height & Weight Height: 5'7.00" Weight: 213lbs. 0.0oz. 96.869335pu; 33.4 BMI Method:Stated General Appearance: Anxious, Chronically ill, Mild Distress, Obese HEENT: PERRL/EOMI, Pharynx Normal Neck: Full Range of Motion, Normal Inspection, Non Tender, Supple Respiratory: Crackles, Decreased Breath Sounds, Rales, Wheezing Cardiovascular: No Edema, No Gallop, No JVD, No Murmur, Normal Peripheral Pulses, Irregularly Irregular Capillary Refill: Less Than 3 Seconds Gastrointestinal: normal bowel sounds, non tender Extremity: Normal Capillary Refill, Normal Inspection, Normal Range of Motion, Non Tender, No Calf Tenderness, No Pedal Edema Neurologic/Psychiatric: Alert, Oriented x3, No Motor/Sensory Deficits, Normal Mood/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 Anemia, with probable GIB s/p blood transfusion -Monitor Atelectasis with PNA - zosyn -IS -Increase activity VIPIN and has CPAP however has not used. -I talked to [facility] however they do not supply his CPAP supplies. Will have pt f/u as out patient to manage CPAP and dyspnea. -Will need to get a CPAP down load and attempt to figure out what DME he uses. KEIKO Baltazar DO Nov 09, 2018 16:55
--- NOTE | 2018-11-09 22:56 | Progress Note (SOAP) ---
Subjective Subjective Date Seen by Provider: Nov 09, 2018 Time Seen by Provider: 08:05 No overnight events Pt reports he is doing alright. Feels like he is breathing decent today. Agreeable to going back to [facility] for SNU but if he decompensates - not return to [facility] but instead consult hospice [facility]. Dr. Herring office to work on getting patient's BiPAP settings updated and mask that fits as pt's reports he has not use it for quite some time. Review of Systems General: No Chills, No Night Sweats; Fatigue, Malaise; No Appetite, No Other HEENT: No Head Aches, No Visual Changes, No Eye Pain, No Ear Pain, No Dysphasia , No Sinus Congestion, No Post Nasal Drip, No Sore Throat, No Other Pulmonary: Dyspnea, Cough; No Pleuritic Chest Pain, No Other Cardiovascular: No: Chest Pain, Palpitations, Orthopnea, Paroxysmal Noc. Dyspnea, Edema, Lt Headedness, Other Gastrointestinal: No: Nausea, Vomiting Genitourinary: No Dysuria Musculoskeletal: No: neck pain Neurological: Weakness, Incoordination, Confusion All Other Systems Reviewed All Other Systems Reviewed: Yes Objective Exam Vital Signs Vital Signs Date Time Temp Pulse Resp B/P (MAP) Pulse Ox O2 Delivery O2 Flow Rate FiO2 11/09/18 20:32 95 Nasal Cannula 4.00 11/09/18 20:00 Nasal Cannula 4.00 11/09/18 16:25 96.3 84 14 133/60 (84) 95 Nasal Cannula 5.00 11/09/18 08:07 98.8 76 18 121/56 (77) 95 Nasal Cannula 5.00 11/09/18 08:00 Nasal Cannula 4.00 11/09/18 07:37 91 Nasal Cannula 5.00 11/09/18 01:04 97.5 73 14 117/58 (77) 95 Nasal Cannula 4.00 11/09/18 00:00 97.5 73 14 117/58 (77) 95 Nasal Cannula 4.00 I & O 11/09/18 07:00 Intake Total 2590 ml Output Total 1800 ml Balance 790 ml General Appearance: Anxious, Chronically ill, Mild Distress, Obese Eyes: Bilateral Eye Normal Inspection, Bilateral Eye PERRL, Bilateral Eye EOMI HEENT: PERRL/EOMI, Pharynx Normal Neck: Full Range of Motion, Normal Inspection, Non Tender, Supple Respiratory: Crackles, Decreased Breath Sounds, Rales, Wheezing Cardiovascular: No Gallop, No JVD, No Murmur, Irregularly Irregular Gastrointestinal: Normal Bowel Sounds, No Organomegaly, No Pulsatile Mass, Non Tender, Soft Rectal: Deferred Back: Normal Inspection, No CVA Tenderness, No Vertebral Tenderness Extremity: Normal Capillary Refill, Normal Inspection, Normal Range of Motion, Non Tender, No Calf Tenderness Neurologic/Psychiatric: Alert, Oriented x3, No Motor/Sensory Deficits, Normal 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, 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 Norm as Tested Skin: Normal Color, Warm/Dry Lymphatic: No Adenopathy Results Lab Laboratory Tests 11/09/18 05:55: Prothrombin Time 42.4H, INR Comment 4.4H 11/09/18 09:19: Glucometer 126H 11/09/18 11:22: Lab Scanned Report Transfusion Reaction Form 11/09/18 16:24: Glucometer 191H 11/09/18 20:48: Glucometer 246H Microbiology 11/06/18 Blood Culture - Preliminary, Resulted No growth Assessment/Plan Assessment/Plan Assessment and Plan Plan to discharge back to [facility] 11/10/18 to resume Intermediate Facility; If his respiratory status worsens [facility] will be consulted instead of returning to the ER. Pulmonology will work on getting his BiPAP functioning for him as this is a difference in his improvement while admitted compared to not using it at home. -Will plan on discontinuing his warfarin on discharge. Problems: (1) Pneumonia Qualifiers: Qualified Codes: J18.1 - Lobar pneumonia, unspecified organism (2) DNR (do not resuscitate) (3) Encounter for hospice care discussion (4) Hypoxia (5) Acute on chronic respiratory failure Qualifiers: Qualified Codes: J96.21 - Acute and chronic respiratory failure with hypoxia (6) Chronic renal insufficiency Qualifiers: Qualified Codes: N18.3 - Chronic kidney disease, stage 3 (moderate) (7) Physical debility (8) Acute on chronic diastolic (congestive) heart failure (9) Anticoagulant long-term use (10) Falls frequently (11) HTN (hypertension) Qualifiers: Qualified Codes: I10 - Essential (primary) hypertension (12) Anemia Qualifiers: Qualified Codes: D64.9 - Anemia, unspecified (13) IDDM (insulin dependent diabetes mellitus) (14) Chronic atrial fibrillation (15) VIPIN (obstructive sleep apnea) Clinical Quality Measures DVT/VTE Risk/Contraindication: Risk Factor Score Per Nursin RFS Level Per Nursing on Admit: 4+=Very High RUBEN SANCHEZ MD Nov 09, 2018 22:56
[2018-11-10] VITALS (10 sets, daily range): BP systolic 117–160; BP diastolic 58–66
[2018-11-10] MEDS: PIPERACILLIN/TAZO 4.5 GM/NS 100 ML IV SCH ×6 (00:14→16:43)
--- NOTE | 2018-11-10 06:04 | Pulmonary Progress Note ---
Subjective Time Seen by a Provider: 06:04 Subjective/Events-last exam Confused, and mild SOB. Sepsis Event Evaluation Height, Weight, BMI Height: 5'7.00" Weight: 213lbs. 0.0oz. 96.509799xg; 33.4 BMI Method:Stated Exam Exam Vital Signs Date Time Temp Pulse Resp B/P (MAP) Pulse Ox O2 Delivery O2 Flow Rate FiO2 11/10/18 00:00 97.8 74 20 160/66 (97) 94 Nasal Cannula 4.00 11/09/18 20:32 95 Nasal Cannula 4.00 11/09/18 20:00 Nasal Cannula 4.00 11/09/18 16:25 96.3 84 14 133/60 (84) 95 Nasal Cannula 5.00 11/09/18 08:07 98.8 76 18 121/56 (77) 95 Nasal Cannula 5.00 11/09/18 08:00 Nasal Cannula 4.00 11/09/18 07:37 91 Nasal Cannula 5.00 I & O 11/10/18 07:00 Intake Total 800 ml Output Total 1150 ml Balance -350 ml Height & Weight Height: 5'7.00" Weight: 213lbs. 0.0oz. 96.448605wn; 33.4 BMI Method:Stated General Appearance: Anxious, Chronically ill, Mild Distress, Obese HEENT: PERRL/EOMI, Pharynx Normal Neck: Full Range of Motion, Normal Inspection, Non Tender, Supple Respiratory: Crackles, Decreased Breath Sounds, Rales, Wheezing Cardiovascular: No Edema, No Gallop, No JVD, No Murmur, Normal Peripheral Pulses, Irregularly Irregular Capillary Refill: Less Than 3 Seconds Gastrointestinal: normal bowel sounds, non tender Extremity: Normal Capillary Refill, Normal Inspection, Normal Range of Motion, Non Tender, No Calf Tenderness, No Pedal Edema Neurologic/Psychiatric: Alert, Oriented x3, No Motor/Sensory Deficits, Normal 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 -will Repeat labs and CXR this AM Anemia, with probable GIB s/p blood transfusion -Monitor Atelectasis with PNA - zosyn -IS -Increase activity VIPIN and has CPAP however has not used. -I talked to [facility] however they do not supply his CPAP supplies. Will have pt f/u as out patient to manage CPAP and dyspnea. -Will need to get a CPAP down load and attempt to figure out what DME he uses. KEIKO Baltazar DO Nov 10, 2018 06:04
[2018-11-10] MEDS: FUROSEMIDE 40 MG/4 ML INJ (LASIX) IV SCH (06:06)
[2018-11-10] MEDS: RT-ALBUTEROL/IPRATROPIUM 3 ML (DUONEB) VIAL IH SCH ×3 (07:19→14:18)
[2018-11-10 07:52] LABS: BASOPHILS % (AUTO) 0 % (0-10); EOSINOPHILS # (AUTO) 0.1 10^3/uL (0.0-0.3); EOSINOPHILS % (AUTO) 1 % (0-10); LYMPHOCYTES % (AUTO) 10 % (12-44); MEAN CORPUSCULAR HEMOGLOBIN 29 PG (25-34); MEAN CORPUSCULAR HGB CONC 33 G/DL (32-36); MEAN CORPUSCULAR VOLUME 89 FL (80-99); MEAN PLATELET VOLUME 10.7 FL (7.4-10.4); MONOCYTES # (AUTO) 1.2 X 10^3 (0.0-1.0); MONOCYTES % (AUTO) 12 % (0-12); NEUTROPHILS # (AUTO) 7.8 X 10^3 (1.8-7.8); NEUTROPHILS % (AUTO) 77 % (42-75); PLATELET COUNT 138 10^3/uL (130-400); RED CELL DISTRIBUTION WIDTH 14.5 % (10.0-14.5)
[2018-11-10 08:00] LABS: HEMATOCRIT 20 % (40-54); HEMOGLOBIN 6.5 G/DL (13.3-17.7)
[2018-11-10 08:05] LABS: INR 3.8 (0.8-1.4)
--- NOTE | 2018-11-10 08:07 | NUR ---
CALLED DR SANCHEZ WITH CRITICAL HBG OF 6.5 AND HCT 20. NO NEW ORDERS. THE PATIENT STATED HE DIDN'T WANT TO RECEIVE ANY MORE BLOOD. DR SANCHEZ WILL BE HERE SOON AND TALK TO THE PATIENT.
[2018-11-10 08:08] LABS: CREATININE SERUM 3.09 MG/DL (0.60-1.30); MAGNESIUM 1.8 MG/DL (1.8-2.4); PHOSPHORUS 3.3 MG/DL (2.3-4.7); POTASSIUM 3.1 MMOL/L (3.6-5.0)
[2018-11-10] MEDS ORDERED: NS IV 500 ML 500 ML IV SCH (08:28)
--- NOTE | 2018-11-10 08:46 | Progress Note (SOAP) ---
Subjective Subjective Date Seen by Provider: Nov 10, 2018 Time Seen by Provider: 08:43 No overnight events Pt is more grumpy this AM. Hgb is down to 6.5. He will need a transfusion. Patient agreeable today but yesterday he denied any blood draws or transfusions. -Cr continues to worsen. Pt agreeable to the plan of going to [facility] and if he declines in respiratory status again he will go on hospice and not return to the ER. But patient knows that he has the option to return to the ER and be seen again. Review of Systems General: No Chills, No Night Sweats; Fatigue, Malaise; No Appetite, No Other HEENT: No Head Aches, No Visual Changes, No Eye Pain, No Ear Pain, No Dysphasia , No Sinus Congestion, No Post Nasal Drip, No Sore Throat, No Other Pulmonary: Dyspnea, Cough; No Pleuritic Chest Pain, No Other Cardiovascular: No: Chest Pain, Palpitations, Orthopnea, Paroxysmal Noc. Dyspnea, Edema, Lt Headedness, Other Gastrointestinal: No: Nausea, Vomiting Genitourinary: No Dysuria Musculoskeletal: No: neck pain Neurological: Weakness, Incoordination, Confusion All Other Systems Reviewed All Other Systems Reviewed: Yes Objective Exam Vital Signs Vital Signs Date Time Temp Pulse Resp B/P (MAP) Pulse Ox O2 Delivery O2 Flow Rate FiO2 11/10/18 07:19 95 Nasal Cannula 4.00 11/10/18 00:00 97.8 74 20 160/66 (97) 94 Nasal Cannula 4.00 11/09/18 20:32 95 Nasal Cannula 4.00 11/09/18 20:00 Nasal Cannula 4.00 11/09/18 16:25 96.3 84 14 133/60 (84) 95 Nasal Cannula 5.00 I & O 11/10/18 06:59 Intake Total 1040 ml Output Total 1550 ml Balance -510 ml General Appearance: Anxious, Chronically ill, Mild Distress, Obese, Other ( grumpy) Eyes: Bilateral Eye Normal Inspection, Bilateral Eye PERRL, Bilateral Eye EOMI HEENT: PERRL/EOMI, Pharynx Normal Neck: Full Range of Motion, Normal Inspection, Non Tender, Supple Respiratory: Crackles, Decreased Breath Sounds, Rales, Wheezing Cardiovascular: Irregularly Irregular Gastrointestinal: Normal Bowel Sounds, No Organomegaly, No Pulsatile Mass, Non Tender, Soft Rectal: Deferred Back: Normal Inspection, No CVA Tenderness, No Vertebral Tenderness Extremity: Normal Capillary Refill, Normal Inspection, Normal Range of Motion, Non Tender, No Calf Tenderness, No Pedal Edema Neurologic/Psychiatric: Alert, Oriented x3, No Motor/Sensory Deficits, Normal Mood/Affect, 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 Norm as Tested Skin: Normal Color, Warm/Dry Lymphatic: No Adenopathy Results Lab Laboratory Tests 11/09/18 09:19: Glucometer 126H 11/09/18 11:22: Lab Scanned Report Transfusion Reaction Form 11/09/18 16:24: Glucometer 191H 11/09/18 20:48: Glucometer 246H 11/10/18 05:05: Glucometer 227H 11/10/18 06:23: White Blood Count 10.0, Red Blood Count 2.22L, Hemoglobin 6.5*L, Hematocrit 20*L , Mean Corpuscular Volume 89, Mean Corpuscular Hemoglobin 29, Mean Corpuscular Hemoglobin Concent 33, Red Cell Distribution Width 14.5, Platelet Count 138, Mean Platelet Volume 10.7H, Neutrophils (%) (Auto) 77H, Lymphocytes (%) (Auto) 10L, Monocytes (%) (Auto) 12, Eosinophils (%) (Auto) 1, Basophils (%) (Auto) 0, Neutrophils # (Auto) 7.8, Lymphocytes # (Auto) 1.0, Monocytes # (Auto) 1.2H, Eosinophils # (Auto) 0.1, Basophils # (Auto) 0.0, Prothrombin Time 38.0H, INR Comment 3.8H, Sodium Level 137, Potassium Level 3.1L, Chloride Level 105, Carbon Dioxide Level 24, Anion Gap 8, Blood Urea Nitrogen 45H, Creatinine 3.09H , Estimat Glomerular Filtration Rate 19, BUN/Creatinine Ratio 15, Glucose Level 185H, Calcium Level 8.0L, Phosphorus Level 3.3, Magnesium Level 1.8, B-Type Natriuretic Peptide 452.2H Microbiology 11/06/18 Blood Culture - Preliminary, Resulted No growth Assessment/Plan Assessment/Plan Assessment and Plan discharge back to [facility] 11/10/18 to resume Custodial Facility; If his respiratory status worsens [facility] will be consulted instead of returning to the ER. Pulmonology will work on getting his BiPAP functioning for him as this is a difference in his improvement while admitted compared to not using it at home. He uses [facility] -Will plan on discontinue his warfarin on discharge- as this is likely worsening his hgb. --He will get 2 units of pRBC today prior to returning to [facility]. Problems: (1) Pneumonia Qualifiers: Qualified Codes: J18.1 - Lobar pneumonia, unspecified organism (2) DNR (do not resuscitate) (3) Encounter for hospice care discussion (4) Hypoxia (5) Acute on chronic respiratory failure Qualifiers: Qualified Codes: J96.21 - Acute and chronic respiratory failure with hypoxia (6) Chronic renal insufficiency Qualifiers: Qualified Codes: N18.3 - Chronic kidney disease, stage 3 (moderate) (7) Physical debility (8) Acute on chronic diastolic (congestive) heart failure (9) Anticoagulant long-term use (10) Falls frequently (11) HTN (hypertension) Qualifiers: Qualified Codes: I10 - Essential (primary) hypertension (12) IDDM (insulin dependent diabetes mellitus) (13) Chronic atrial fibrillation (14) VIPIN (obstructive sleep apnea) (15) Acute on chronic blood loss anemia Clinical Quality Measures DVT/VTE Risk/Contraindication: Risk Factor Score Per Nursin RFS Level Per Nursing on Admit: 4+=Very High RUBEN SANCHEZ MD Nov 10, 2018 08:46
[2018-11-10] MEDS ORDERED: PANTOPRAZOLE 40 MG (PROTONIX) TAB PO SCH (09:00)
[2018-11-10] MEDS: inSUlin Protamine/ASPart 70/30 1 UNIT/0.01 ML DOSE SQ SCH (09:35)
[2018-11-10] MEDS: DIGOXIN 0.125 MG (LANOXIN) TAB PO SCH (09:35)
[2018-11-10] MEDS: CARVEDILOL 12.5 MG (COREG) TABLET PO SCH (09:35)
[2018-11-10] MEDS: MAGNESIUM OXIDE (MAG-OX)400 MG TAB PO SCH ×2 (09:35→16:43)
[2018-11-10] MEDS: FAMOTIDINE 20 MG (PEPCID) TABLET PO SCH (09:36)
[2018-11-10] MEDS: SILVASORB GEL 1.5 OZ TP SCH (09:36)
--- NOTE | 2018-11-10 10:28 | NUR ---
DISCHARGE PLANNING: Spoke with jh Jeffery and had tentatively set a [employer]et [employer] time of [address] Alexander aware and then learned that he would be getting 2 Units PRBCs prior to discharge today. Due to the T&C needed before the units are ready to hang, it is anticipated that the 1 p.m. picket [employer] time is likely premature so I called Jenny back. Due to the unknown transfusion time we will just notify her when the 2nd unit is hung do try and figure out a picket labor union time.
[2018-11-10] MEDS ORDERED: AMOX-355 PO (10:52)
--- NOTE | 2018-11-10 10:59 | Diagnostic Imaging Report ---
INDICATION: Acute hypoxic episode. TECHNIQUE: Single view chest at 7:32 AM. CORRELATION STUDY: 11/07/2018. FINDINGS: Heart size remains enlarged but generally stable. Vasculature is improved on followup. Scattered patchy pulmonary/parenchymal densities do persist, most pronounced in the perihilar and basilar regions. Particularly involving the right lung base, this does appear to be slightly improved. IMPRESSION: 1. Stable cardiac enlargement. Vasculature is near normal on followup. 2. Scattered bilateral pulmonary infiltrates, particularly in the lung bases, persist but are overall slightly improved, particularly at the right lung base. Dictated by: Dictated on workstation # [id number]
--- NOTE | 2018-11-10 11:01 | Discharge Inst-Skilled Nursing ---
Discharge Inst-Skilled NF Patient Instructions Patient Problems: COPD acute on chronic respiratory failure anemia acute on chronic renal failure Consult/Follow Up/Orders Follow Up Appt.: follow up in 1 week with [facility] follow up in [address] Nevaeh Medina NF Admit to: [facility] Certification (SNF) I certify that SNF services are required to be given on an inpatient basis because of the above named patient's need for intermediate care on a continuing basis for the conditions(s) for which he/she was receiving inpatient hospital services prior to his/her transfer to the SNF. Assisted Facility Order: Nursing Services, Segment Assembler-Evaluate & Treat, Physical Therapy-Evaluate & Treat, Speech Language-Evaluate & Treat, Other (Breathing treatments- continuous oxygen to keep saturation >90%) Oxygen Delivery Method: Nasal Cannula Discharge Diet: ADA Diet New & Resume Previous Orders New & Resume Previous Orders Resume previous orders --hold blood pressure medications ( losartan, carvedilol ) for blood pressures less than 100/60 and heart rate less than 60 (digoxin) --recheck CBC in 1 week (11/17/18) -May use home BiPAP with settings 13/08 -check blood sugar BID -complete augmentin for pneumonia -Plan for now is if patient acutely decompensates again to consult [facility] and not return to [facility]- Patient does reserve the right to change this. Hugo Alexander Nov 10, 2018 10:55 HUGO ALEXANDER MD Nov 10, 2018 11:01
--- NOTE | 2018-11-10 11:38 | Cardiology Progress Note ---
Subjective Date Seen by Provider: Nov 10, 2018 Time Seen by Provider: 11:37 Subjective/Events-last exam Patient is laying down in bed, was refusing blood transfusion blood work earlier , currently agreed on blood transfusion Review of Systems General: No Chills, No Night Sweats, No Fatigue, No Malaise, No Appetite, No Other HEENT: No Head Aches, No Visual Changes, No Eye Pain, No Ear Pain, No Dysphasia , No Sinus Congestion, No Post Nasal Drip, No Sore Throat, No Other Pulmonary: No Dyspnea, No Cough, No Pleuritic Chest Pain, No Other Cardiovascular: No: Chest Pain, Palpitations, Orthopnea, Paroxysmal Noc. Dyspnea, Edema, Lt Headedness, Other Objective-Cardiology Exam Last Set of Vital Signs Vital Signs 11/10/18 11/10/18 11/10/18 08:30 10:47 11:01 Temp 97.0 Pulse 73 Resp 18 B/P (MAP) 127/59 (81) Pulse Ox 89 O2 Delivery Nasal Cannula O2 Flow Rate 4.00 Capillary Refill : Less Than 3 Seconds I&O Intake and Output 11/10/18 00:00 Intake Total 1420 ml Output Total 1675 ml Balance -255 ml Intake Oral 1300 ml IV Total 120 ml Output Urine Total 1675 ml # Bowel Movements 1 General: Alert, Cooperative, Mild Distress, Other (confused) HEENT: Atraumatic, PERRLA Neck: Supple, No JVD, No Thyromegaly Lungs: Normal Air Movement, Other (bilateral rhonchi) Heart: Regular Rate, Normal S1, Normal S2, Other (systolic murmur) Abdomen: Normal Bowel Sounds, Soft, No Tenderness, No Hepatosplenomegaly, No Masses Extremities: No Clubbing, No Cyanosis, No Edema, Normal Pulses, No Tenderness/ Swelling Skin: No Rashes, No Breakdown, No Significant Lesion Neuro: Normal Gait, Normal Tone Psych/Mental Status: Mood NL, Other (confused) Results Lab Laboratory Tests 11/10/18 06:23 A/P-Cardiology Admission Diagnosis Severe anemia Generalized weakness COPD Peripheral arterial disease Assessment/Plan Anemia, worsening, still have elevated INR, scheduled to receive blood transfusion today, patient agreed on having the transfusion done, continue to monitor Generalized weakness and loss of energy, could be secondary to multiple comorbid condition. Continue to monitor at this time. Shortness of breath, History of COPD, generalized shortness of breath and loss of energy. Congestive heart failure, acute on chronic left ventricular systolic dysfunction , nonischemic cardiomyopathy, ejection fraction 45-50 percent with mild hypokinesia at the anterior wall. No previous history of coronary artery disease, had borderline stress test in February 2018 with mild decreased uptake at the mid to apical inferior wall with mild reversibility. Normal left ventricular function at that time. Continue to monitor Chronic atrial fibrillation, rate controlled, unable to tolerate oral anticoagulation secondary to the active bleeding and severe anemia [id number] score is 4, yearly risk of stroke without oral anticoagulation is 4 percent. has been on Coumadin, on hold now, may discontinue Coumadin permanently due to the severe anemia and recurrent blood loss Hypertension, monitor blood pressure Acute on chronic renal insufficiency, continue to monitor renal function Peripheral vascular disease, extensive disease, multiple interventions in the past, last procedure was done on July 29, 2018 after having abnormal RANULFO with deployment of 2 overlapping Supera stents in the left SFA 6.0150 and 6.0 100 with excellent results and reduction of severe stenosis into no residual stenosis. Balloon angioplasty to the left tibial peroneal trunk that has severe stenosis/subtotal occlusion with excellent results and mild residual recoil. Diffuse atherosclerotic disease in the anterior tibial artery that is treated medically. Right lower extremity runoff showed moderate disease in the SFA and popliteal with very slow flow below the trifurcation. discontinue aspirin and Plavix due to the active bleeding, monitor closely Chronic venous insufficiency, seen by Dr. Castro in [place], status post ablation by Dr. Castro on the right side. Hyperlipidemia, monitor lipids COPD, Obstructive sleep apnea, history of prolonged respiratory failure and transferred to [facility], managed by Dr. Herring Diabetes mellitus. Followed and managed by primary care physician. Continue to monitor Diabetic neuropathy. Mild bilateral carotid stenosis, last ultrasound was done in June 2018. Continue to monitor. Clinical Quality Measures DVT/VTE Risk/Contraindication: Risk Factor Score Per Nursin RFS Level Per Nursing on Admit: 4+=Very High KEELEY ROSSI MD Nov 10, 2018 11:38
--- NOTE | 2018-11-10 14:23 | NUR ---
DISCHARGE PLANNING: Received call from [facility] and they voiced their concern that he is not a NO CODE at their facility with an order signed by the patient and the doctor. Dr. Alexander did put in discharge orders but that is I guess not acceptable from their standpoint. Have attempted to get in touch with the Debby, to discuss this with her but she has not returned my call.
[2018-11-10] MEDS: TROSPIUM 20 MG (SANCTURA) TAB PO SCH (16:43)
--- NOTE | 2018-11-10 17:26 | NUR ---
REPORT GIVEN TO BA PATEL AT [facility]
== END 2018-11-10 17:48 | DRG 189 ==
LOC: EDUNIT# 15:07 → ER 15:10 → 4TH 18:00
PROVIDERS: ADMIT Internal Medicine; ATTEND Internal Medicine
DX: J96.20 Acute and chronic respiratory failure, unspecified whether with hypoxia or hypercapnia (principal); J18.1 Lobar pneumonia, unspecified organism; J44.1 Chronic obstructive pulmonary disease with (acute) exacerbation; J44.0 Chronic obstructive pulmonary disease with (acute) lower respiratory infection; I13.0 Hypertensive heart and chronic kidney disease with heart failure and stage 1 through stage 4 chronic kidney disease, or unspecified chronic kidney disease; I50.33 Acute on chronic diastolic (congestive) heart failure; N18.3 Chronic kidney disease, stage 3 (moderate); J98.11 Atelectasis; Z66 Do not resuscitate; N17.9 Acute kidney failure, unspecified; K92.2 Gastrointestinal hemorrhage, unspecified; D62 Acute posthemorrhagic anemia; G47.33 Obstructive sleep apnea (adult) (pediatric); I48.2 Chronic atrial fibrillation; I70.203 Unspecified atherosclerosis of native arteries of extremities, bilateral legs; F03.90 Unspecified dementia, unspecified severity, without behavioral disturbance, psychotic disturbance, mood disturbance, and anxiety; R79.1 Abnormal coagulation profile; E11.42 Type 2 diabetes mellitus with diabetic polyneuropathy; E11.51 Type 2 diabetes mellitus with diabetic peripheral angiopathy without gangrene; E78.00 Pure hypercholesterolemia, unspecified; K21.9 Gastro-esophageal reflux disease without esophagitis; K59.09 Other constipation; T45.515A Adverse effect of anticoagulants, initial encounter; R29.6 Repeated falls; E66.9 Obesity, unspecified; Z68.33 Body mass index [BMI] 33.0-33.9, adult; Z87.891 Personal history of nicotine dependence; Z79.01 Long term (current) use of anticoagulants; Z79.4 Long term (current) use of insulin; Z95.820 Peripheral vascular angioplasty status with implants and grafts
CPT/HCPCS: 36415; 71045; 80048; 80053; 82962; 83540; 83605; 83735; 83880; 84100; 84443; 84484; 85007; 85025; 85027; 85610; 85730; 86850; 86900; 86901; 86920; 87040; 93005; 94640; 94760

== ENCOUNTER 2018-12-19 12:13 | Emergency (ER) | payer MEDICARE, BC ==
[~2018-12-19] VITALS: Ht 172.7 cm; Wt 99.8 kg
[~2018-12-19 12:13] MED LIST changes: +AMOX-355 PO
--- OUTSIDE RECORDS SUMMARY | 2018-12-19 12:18 | XMS REPORT | Clinical Summary ---
Author Author [facility] Organization [facility] Address Unknown Phone Unavailable Care Team Providers Care Clarifier Operator Helper Name Role Phone JasonCailin Unavailable Unavailable Ru Gomez MD PCP Ronen Agosto MD Unavailable Source Comments Some departments are not documenting in the electronic medical record. If you do not see the information that you expected, contact Release of Information in the Health Information Management department at [phone] for further assistance in locating additional records.[facility] Allergies Comments Active Allergy Reactions Severity Noted [...] every 4 hours solutionIndications: as needed for chronic obstructive Wheezing. pulmonary disease Indications: CHRONIC OBSTRUCTIVE PULMONARY DISEASE Active ipratropium (ATROVENT) Inhale 2.5 mL 1 Bottle 11 0.02 % nebulizer by mouth 6 solutionIndications: twice daily. Chronic Obstructive Indications: Asthma CHRONIC OBSTRUCTIVE ASTHMA Active diltiazem CD (CARDIZEM Take 2 Caps 60 Cap 11 CD) 240 mg by mouth 6 capsuleIndications: daily. Paroxysmal atrial fibrillation (HCC), Shortness of breath, Essential hypertension, Coronary artery disease involving [place] coronary artery of [place] heart without angina pectoris Active aspirin EC [...] and Noc ox Coronary artery disease involving [place] coronary artery of [place] heart 10/2014 without angina pectoris Diabetic neuropathy [...] Not on filefrom Last 3 Months Insurance Type Payer Benefit Subscriber ID Effective Phone Address Plan / Dates Group Medicare MEDICARE MEDICARE xxxxxxxxxx 2001-P PART A AND resent B PPO BCBS [employer] xxxxxxxxxxxx 2008-P BLUE OUT resent [place] STATE ([place]) [place] [address] Advance Directives Patient has advance care planning documents on file. For more information, please contact: [facility] [address] [place] [address]
--- NOTE | 2018-12-19 12:45 | ED Fall/Injury ---
General Chief Complaint: Trauma-Non Activation Stated Complaint: FALL Nursing Triage Note: PT REPORTS FALLING ON FRIDAY AND HITTING HEAD/BODY ON THE DOOR AND DOOR JAM. PT REPORTS STILL HAVING NECK PAIN. PT IS A&O ATT. Source: patient Exam Limitations: no limitations History of Present Illness Date Seen by Provider: Dec 19, 2018 Time Seen by Provider: 12:27 Initial Comments Here with report of fall on Friday at the retirement. He is not exactly sure what happened but states he went down and then hit his body and head against the door jam. Had x-rays of the cervical thoracic and lumbar spine which did not show any acute fractures. Has headache and neck pain today. He is on Plavix. skilled nursing sent him here for further evaluation. Patient is able to tell his story but is confused on some of the details. He actually admits that that is normal for him. Denies other injuries. Occurred: other (3 days ago) Severity: mild, moderate Injuries/Pain Location: head, neck Context: lost balance Loss of Consciousness: no loss of consciousness Modifying Factors: Improves With Immobilization; Worse With Movement Associated Symptoms (Fall): No Abdominal Pain, No Chest Pain; Confusion, Headache, Muscle Spasms; No Nausea/Vomiting; Neck Pain; No Shortness of Air Allergies and Home Medications Allergies Coded Allergies: sulfamethoxazole (Verified Allergy, Mild, RASH, 11/13/17) trimethoprim (Verified Allergy, Mild, RASH, 11/13/17) Home Medications Amoxicillin/Potassium Clav 1 Each Tablet, 1 EACH PO BID Prescribed by: RUBEN SANCHEZ on 11/10/18 1052 Aspirin 81 Mg Tablet.dr, 81 MG PO HS, (Reported) Carvedilol 12.5 Mg Tablet, 18.75 MG PO BID, (Reported) TAKES 1 & 1/2 (12.5MG) TABLETS Cholecalciferol (Vitamin D3) 2,000 Unit Tablet, 2,000 UNIT PO DAILY, (Reported) Clopidogrel Bisulfate 75 Mg Tablet, 75 MG PO DAILY, (Reported) Digoxin 125 Mcg Tablet, 125 MCG PO DAILY, (Reported) Ferrous Sulfate 325 Mg Tablet, 325 MG PO BID, (Reported) Furosemide 20 Mg Tablet, 40 MG PO DAILY, (Reported) Insuln Asp Prt/Insulin Aspart 300 Units/3 Ml Solution, 17 UNITS SQ 0800,2100, ( Reported) Ipratropium/Albuterol Sulfate 3 Ml Ampul.neb, 3 ML NEB QID, (Reported) Krill Oil 500 Mg Capsule, 500 MG PO DAILY, (Reported) Losartan Potassium 100 Mg Tablet, 100 MG PO DAILY, (Reported) Magnesium Oxide 400 Mg Tablet, 400 MG PO BID, (Reported) Ondansetron HCl 4 Mg Tablet, 4 MG PO Q4H PRN for NAUSEA/VOMITING-1ST LINE, ( Reported) Ranitidine HCl 150 Mg Tablet, 150 MG PO BID, (Reported) Silver 480 Ml Gel.er.ml., TOP DAILY, (Reported) APPLY LEFT HEAL WOUND Trospium Chloride 60 Mg Cap.er.24h, 60 MG PO DAILY, (Reported) Patient Home Medication List Home Medication List Reviewed: Yes Review of Systems Review of Systems Constitutional: see HPI; No chills, No fever Eyes: No Symptoms Reported Ears, Nose, Mouth, Throat: no symptoms reported Respiratory: No cough; short of breath (chronic but controlled with oxygen and not worse currently) Cardiovascular: No chest pain, No edema Gastrointestinal: No abdominal pain, No nausea, No vomiting Genitourinary: no symptoms reported Musculoskeletal: muscle pain, neck pain Skin: no symptoms reported Psychiatric/Neurological: Headache; Denies Numbness, Denies Paresthesia All Other Systems Reviewed Negative Unless Noted: Yes Past Dpslcuc-Pzixde-Droiyf Hx Past Med/Social Hx: Reviewed Nursing Past Med/Soc Hx Patient Social History Alcohol Use: Denies Use Recreational Drug Use: No Type Used: Cigarettes Former Smoker, Quit: Jul 29, 2005 2nd Hand Smoke Exposure: No Recent Foreign Travel: No Contact w/Someone Who Travel: No Recent Infectious Disease Expo: No Recent Hopitalizations: No Immunizations Up To Date Tetanus Booster (TDap): Unknown PED Vaccines UTD: No Date of Pneumonia Vaccine: Jul 27, 2018 Date of Influenza Vaccine: Jul 27, 2018 Seasonal Allergies Seasonal Allergies: No Past Medical History Surgeries: Yes Eye Surgery, Orthopedic, Tonsillectomy, Transurethral Resection, Vascular Surgery Respiratory: Yes (02 4l at hs, used to wear cpap) Pneumonia, Sleep Apnea, COPD Currently Using CPAP: No (DOESN'T USE IT) Currently Using BIPAP: No Cardiac: Yes (LBBB) Atrial Fibrillation, Chronic Edema/Swelling, High Cholesterol, Hypertension, Peripheral Vascular Neurological: Yes (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) Neuropathy Reproductive Disorders: No Sexually Transmitted Disease: No HIV/AIDS: No Genitourinary: Yes (TURP) Benign Prostatic Hyperpl, Prostate Problems, Renal Failure, UTI-Chronic Gastrointestinal: Yes Gastroesophageal Reflux, Chronic Constipation Musculoskeletal: Yes (GENERALIZED WEAKNESS; FREQUENT FALLS ) Endocrine: Yes Diabetes, Insulin dep HEENT: Yes Cataract, Macular Degeneration Hearing Impairment: Hard of Hearing Cancer: Yes (BASAL CELL CARCINOMA) Skin Did You Recieve Any Treatments: No Psychosocial: Yes Sleep Difficulties Integumentary: Yes (CELLULITIS IN LEFT KNEE EARLY OCTOBER 2013; DIABETIC FOOT ULCER. ) Recent Skin Changes Blood Disorders: No Adverse Reaction/Blood Tranf: No Family Medical History Reviewed Nursing Family Hx COPD 19 FATHER Colon cancer 19 MOTHER Diabetes mellitus G8 SISTER Drug abuse G8 SISTER Lung cancer 19 FATHER Polio G8 BROTHER Sarcoidosis G8 BROTHER Cancer Physical Exam Vital Signs Vital Signs - First Documented 12/19/18 12:25 Temp 96.6 Pulse 72 Resp 16 B/P (MAP) 179/95 (123) Pulse Ox 97 Capillary Refill : Less Than 3 Seconds Height, Weight, BMI Height: 5'8.00" Weight: 220lbs. 0.0oz. 99.911956la; 33.4 BMI Method:Stated General Appearance: WD/WN, no apparent distress HEENT: PERRL/EOMI, pharynx normal Neck: limited range of motion (pain), tender lateral (bilateral), tender midline Cardiovascular: regular rate, rhythm, no murmur Respiratory: lungs clear, normal breath sounds Back: normal inspection, no vertebral tenderness Neurologic/Psychiatric: alert, oriented x 3 Skin: normal color, warm/dry Mallory Coma Score Best Eye Response: (4) Open Spontaneously Best Verbal Response: (5) Oriented Best Motor Response: (6) Obeys Commands Procedures/Interventions Date of ETT Placement: Oct 13, 2016 Time of ETT Placement: 2129 Progress/Results/Core Measures Results/Orders My Orders Orders - OKSANA MOODY MD Ct Head/Cervical Spine Wo (12/19/18 12:32) Tramadol Tablet (Ultram Tablet) (12/19/18 12:32) Vital Signs/I&O 12/19/18 12:25 Temp 96.6 Pulse 72 Resp 16 B/P (MAP) 179/95 (123) Pulse Ox 97 Blood Pressure Mean: 123 Progress Progress Note : Progress Note Seen and evaluated. I did review the x-ray reports sent from retirement for cervical, thoracic and lumbar spine. No acute fracture reported. We will go ahead and get CT of the head and C-spine for further evaluation given his headache and neck pain. Monitor patient. 1430: CT significant for type II or 3 odontoid fracture. I did discuss this with the patient regarding concerns as this is typically an unstable fracture or at least is to be evaluated by neurosurgery. He was agreeable. That service is not available here and wrote heart transfer. 1445: I discussed the case with Dr. Ro, emergency department physician at [facility] in [facility] who is accepted patient for transfer to their facility for further evaluation. We have placed a c-collar on the patient. The patient's was contacted and I discussed the findings with her. She is currently at a [facility] it sounds like and she can try to get up to [place]. Her phone number is [phone] and her name is Debby Bourne. The patient and are not convinced that they would want to do surgery but would like to at least have informed evaluation regarding this spinal injury. Patient will go by EMS. This will be an emergency department to emergency department transfer. Diagnostic Imaging Diagonstic Imaging: CT Plain Films/CT/US/NM/MRI: c-spine, head Departure Impression Primary Impression: Odontoid fracture with type II morphology Qualified Codes: S12.112A - Nondisplaced type ii dens fracture, initial encounter for closed fracture Disposition: XFER SHT-TRM HOSP Condition: Stable Transfer Time Spoke to Accepting Phy: 14:45 Transfer Time: 14:45 Transfer Facility: [place], [place], Dr. Ro excepting Method of Transfer: EMS Departure-Patient Inst. Referrals: RUBEN SANCHEZ MD (PCP/Family) Primary Care Physician Copy Copies To 1: RUBEN SANCHEZ MD, TIMOTHY D MD Dec 19, 2018 12:45
--- NOTE | 2018-12-19 14:07 | Diagnostic Imaging Report ---
PROCEDURE: CT head and CT cervical spine without contrast. TECHNIQUE: Multiple contiguous axial images were obtained through the brain and cervical spine without the use of intravenous contrast. Sagittal and coronal reformations through the cervical spine were then performed. Auto Exposure Controls were utilized during the CT exam to meet ALARA standards for radiation dose reduction. INDICATION: Fell, head neck pain. CT head: There is no mass, shift of midline or hemorrhage to suggest an acute intracranial abnormality. There are a few small foci of increased density within the posterior fossa. These were also present on the prior CT head exam of 03/12/2018 and appear stable. These may represent small calcifications. The normal tentorial blush seen at the previous study is also again visualized and no different. The ventricles are not abnormally dilated and stable in size when compared to the prior study. The cortical atrophy and periventricular encephalomalacia seen previously is again evident and no different. The bone windows show no sign of a fracture or of a destructive lesion. The orbits are symmetrical and within normal limits. The sinuses are generally clear. IMPRESSION: 1. There is no evidence for an acute intracranial abnormality. When compared to the prior study there has been no significant change. 2. If the patient is anticoagulated and if his symptoms persist, a short-term (24 hour) followup CT head exam would be recommended for further study. CT cervical spine: The previous CT cervical spine exam performed on 12/06/2017 failed to show any sign of an acute bony abnormality of the cervical spine. On this study, however there is an oblique fracture line extending through the base of the odontoid. This fracture is essentially nondisplaced and probably represents a type II-type III fracture. No other fracture or acute bony abnormality is appreciated. The degenerative disc and bony disease involving the cervical spine seen previously does not appear to have progressed significantly. There is mild retropharyngeal edema in the region of the fracture. Retropharyngeal tissues are otherwise unremarkable. The thyroid gland seems similar to the prior study. The lung apices are clear. IMPRESSION: 1. There is an oblique nondisplaced fracture extending to the base of the odontoid. This would be consistent with type II-III fracture. 2. There is no acute bony abnormality noted otherwise. 3. These results were discussed with Scott Dhaliwal APRN at the time of this dictation. CRITICAL FINDING Dictated by: Dictated on workstation # [id number]
[2018-12-19 15:42] VITALS: BP 179/95
== END 2018-12-19 15:42 | disposition short-term general hospital (02) ==
LOC: EDUNIT# 12:13 → ER 12:14
DX: S12.101A Unspecified nondisplaced fracture of second cervical vertebra, initial encounter for closed fracture (principal); G47.30 Sleep apnea, unspecified; J44.9 Chronic obstructive pulmonary disease, unspecified; I48.91 Unspecified atrial fibrillation; E78.00 Pure hypercholesterolemia, unspecified; I10 Essential (primary) hypertension; R40.2142 Coma scale, eyes open, spontaneous, at arrival to emergency department; R40.2252 Coma scale, best verbal response, oriented, at arrival to emergency department; R40.2362 Coma scale, best motor response, obeys commands, at arrival to emergency department; E11.51 Type 2 diabetes mellitus with diabetic peripheral angiopathy without gangrene; I73.9 Peripheral vascular disease, unspecified; K21.9 Gastro-esophageal reflux disease without esophagitis; Z88.2 Allergy status to sulfonamides; Z80.1 Family history of malignant neoplasm of trachea, bronchus and lung; Z85.828 Personal history of other malignant neoplasm of skin; Z79.82 Long term (current) use of aspirin; Z87.19 Personal history of other diseases of the digestive system; Z87.440 Personal history of urinary (tract) infections; Z88.8 Allergy status to other drugs, medicaments and biological substances; Z79.4 Long term (current) use of insulin; Z87.891 Personal history of nicotine dependence; Z90.79 Acquired absence of other genital organ(s); Z90.89 Acquired absence of other organs; Z98.890 Other specified postprocedural states; Z87.01 Personal history of pneumonia (recurrent); Z79.02 Long term (current) use of antithrombotics/antiplatelets; W01.198A Fall on same level from slipping, tripping and stumbling with subsequent striking against other object, initial encounter; Y92.129 Unspecified place in nursing home as the place of occurrence of the external cause
CPT/HCPCS: 70450; 72125

== ENCOUNTER → 2018-12-31 | Outpatient (CLI) | payer MEDICARE, BC ==
--- NOTE | 2018-12-31 16:42 | Diagnostic Imaging Report ---
INDICATION: Pneumonia. TIME OF EXAM: 03:34 p.m. COMPARISON: Correlation is made with prior study from 11/10/2018. FINDINGS: The heart is enlarged but stable. Airspace infiltrate in the right lower lobe is noted. Left lung is fairly clear. The pulmonary vascularity is normal. No significant effusion is seen. IMPRESSION: Right lower lobe pneumonia. Dictated by: Dictated on workstation # [id number]
== END ==
LOC: RAD 14:40
PROVIDERS: ATTEND Nurse Practitioner Family
DX: J18.1 Lobar pneumonia, unspecified organism (principal); J44.9 Chronic obstructive pulmonary disease, unspecified; G47.33 Obstructive sleep apnea (adult) (pediatric); J40 Bronchitis, not specified as acute or chronic
CPT/HCPCS: 71046

== ENCOUNTER → 2019-01-16 | Outpatient (CLI) | payer MEDICARE, BC ==
[~2019-01-16] MED LIST changes: +CEFU500T63 PO
[2019-01-16 16:04] LABS: BILIRUBIN,URINE NEGATIVE (NEGATIVE); CLARITY,URINE VERY CLOUDY; COLOR,URINE YELLOW; GLUCOSE, URINE (UA) NEGATIVE (NEGATIVE); KETONES,URINE NEGATIVE (NEGATIVE); LEUKOCYTE ESTERASE ,URINE 3+ (NEGATIVE); NITRITE,URINE NEGATIVE (NEGATIVE); PH,URINE 5 (5-9); PROTEIN,URINE 4+ (NEGATIVE); UROBILINOGEN,URINE NORMAL (NORMAL)
[2019-01-16 16:20] LABS: BACTERIA,URINE LARGE /HPF; RBC,URINE RARE /HPF; WBC,URINE TNTC /HPF
== END ==
LOC: LABNPT 15:57
PROVIDERS: ATTEND Family Medicine
DX: R41.82 Altered mental status, unspecified (principal); R82.998 Other abnormal findings in urine
CPT/HCPCS: 81000; 87077; 87088

== ENCOUNTER 2019-01-17 12:17 | Emergency (ER) | payer MEDICARE, BC ==
[~2019-01-17] VITALS: Ht 172.7 cm; Wt 74.8 kg
[~2019-01-17 12:17] MED LIST changes: -CEFU500T63 PO
[2019-01-17] MEDS ORDERED: HALOPERIDOL 5 MG/ML (HALDOL) AMP ONE (12:21)
--- OUTSIDE RECORDS SUMMARY | 2019-01-17 12:22 | XMS REPORT | Clinical Summary ---
Author Author [facility] Organization [facility] Address Unknown Phone Unavailable Care Team Providers Care Swinging Cut Off Saw Operator Name Role Phone JasonCailin Unavailable Unavailable Ru Gomez MD PCP Ronen Agosto MD Unavailable Source Comments Some departments are not documenting in the electronic medical record. If you do not see the information that you expected, contact Release of Information in the Health Information Management department at [phone] for further assistance in locating additional records.[facility] Allergies Comments Active Allergy Reactions Severity [...] breath, Essential hypertension, Coronary artery disease involving tatitlek coronary artery of tatitlek heart without angina pectoris Active aspirin EC [...] and Noc ox Coronary artery disease involving tatitlek coronary artery of tatitlek heart 10/2014 without angina pectoris Diabetic neuropathy [...] (1 of 2 - PCV13) INFLUENZA VACCINE 04/29/2019 Results Not on filefrom Last 3 Months Insurance Type Payer Benefit Subscriber ID Effective Phone Address Plan / Dates Group Medicare MEDICARE MEDICARE xxxxxxxxxx 2001-P PART A AND resent B PPO BCBS [employer] xxxxxxxxxxxx 2008-P BLUE OUT resent OF STATE ([place]) [place] [address] Advance Directives Patient has advance care planning documents on file. For more information, please contact: [facility] [address] [place] [address]
--- NOTE | 2019-01-17 12:30 | NUR ---
DEREK SAT WITH PT FOR OVER 10 MINUTES TRYING TO TALK TO PT INTO IV ET PT CONTINUES TO SAY NO.
--- NOTE | 2019-01-17 12:50 | NUR ---
DEREK ON PHONE TALKING TO PT'S .
--- NOTE | 2019-01-17 13:00 | NUR ---
AFTER TALKING TO ON THE PHONE WHO GAVE PERMISSION FOR A IV DEREK AND I WENT INTO ROOM TO START IV. PT STILL WILL NOT ALLOW IV. ORIENTED X3. PT PULSE OX IS 84% ON 4L PER NC ET PT WILL NOT ALLOW A MASK TO BE APPLIED. NOTIFIED PT HE COULD IF HE DID NOT ALLOW US TO GIVE HIM CARE ET HE STATES HE IS GOING TO ANYWAY. IS ON HER WAY TO THE ER ET WE WILL HOLD MEDICAL INTERVENTIONS UNTIL SHE ARRIVES.
--- NOTE | 2019-01-17 13:09 | ED Cough/URI ---
General Chief Complaint: Respiratory Problems Stated Complaint: CHF Nursing Triage Note: ARRIVED VIA AMBULANCE FROM [facility] WITH INCRASED SOA, HYPOXIA WITH OXYGEN ON, AND SWELLING IN LOWER EXT. EMS STATES PT THREATENED LAW SUIT WITH IV STICK. UPON ARRIVAL PT ALERT X2 ET VERBALLY COMBATIVE. THREATENS TO PAUL WITH ANY PROCEDURE DEREK WANTS TO DO. PT WEARING A C-COLLAR FROM PREVIOUS FALL AND STATES HE HAS A FRACTURED NECK, Sepsis Screen: No Definite Risk Source: patient Exam Limitations: no limitations History of Present Illness Date Seen by Provider: Jan 17, 2019 Time Seen by Provider: 13:06 Initial Comments To ER with reports of seemingly confused and low oxygen saturation. He arrives per EMS from [facility]. He is a DO NOT RESUSCITATE status. He refused to allow EMS to check blood sugar or start an IV. He refuses to allow us to start an IV. Oxygen saturation is 84% on 4 L per nasal cannula on arrival and he refuses to wear a face mask. He is alert and oriented his own name, he knows the name of the building where and currently, the year, the month. He answers questions appropriately. Timing/Duration: just prior to arrival Severity/Quality: dry cough Associated Symptoms: denies symptoms Allergies and Home Medications Allergies Coded Allergies: sulfamethoxazole (Verified Allergy, Mild, RASH, 11/13/17) trimethoprim (Verified Allergy, Mild, RASH, 11/13/17) Home Medications Amoxicillin/Potassium Clav 1 Each Tablet, 1 EACH PO BID Prescribed by: RUBEN SANCHEZ on 11/10/18 1052 Aspirin 81 Mg Tablet.dr, 81 MG PO HS, (Reported) Carvedilol 12.5 Mg Tablet, 18.75 MG PO BID, (Reported) TAKES 1 & 1/2 (12.5MG) TABLETS Cefuroxime Axetil 500 Mg Tablet, 500 MG PO BID Prescribed by: DEERK ST on 01/17/19 1447 Cholecalciferol (Vitamin D3) 2,000 Unit Tablet, 2,000 UNIT PO DAILY, (Reported) Clopidogrel Bisulfate 75 Mg Tablet, 75 MG PO DAILY, (Reported) Digoxin 125 Mcg Tablet, 125 MCG PO DAILY, (Reported) Ferrous Sulfate 325 Mg Tablet, 325 MG PO BID, (Reported) Furosemide 20 Mg Tablet, 40 MG PO DAILY, (Reported) Insuln Asp Prt/Insulin Aspart 300 Units/3 Ml Solution, 17 UNITS SQ 0800,2100, ( Reported) Ipratropium/Albuterol Sulfate 3 Ml Ampul.neb, 3 ML NEB QID, (Reported) Krill Oil 500 Mg Capsule, 500 MG PO DAILY, (Reported) Losartan Potassium 100 Mg Tablet, 100 MG PO DAILY, (Reported) Magnesium Oxide 400 Mg Tablet, 400 MG PO BID, (Reported) Ondansetron HCl 4 Mg Tablet, 4 MG PO Q4H PRN for NAUSEA/VOMITING-1ST LINE, ( Reported) Prednisone 20 Mg Tab, 40 MG PO DAILY Prescribed by: DEREK ST on 01/17/19 2387 Ranitidine HCl 150 Mg Tablet, 150 MG PO BID, (Reported) Silver 480 Ml Gel.er.ml., TOP DAILY, (Reported) APPLY LEFT HEAL WOUND Trospium Chloride 60 Mg Cap.er.24h, 60 MG PO DAILY, (Reported) Patient Home Medication List Home Medication List Reviewed: Yes Review of Systems Review of Systems Constitutional: see HPI EENTM: see HPI Respiratory: see HPI, cough Cardiovascular: no symptoms reported Genitourinary: no symptoms reported Musculoskeletal: no symptoms reported Skin: no symptoms reported Psychiatric/Neurological: No Symptoms Reported Hematologic/Lymphatic: No Symptoms Reported Immunological/Allergic: no symptoms reported Past Bvujixu-Oexujx-Fueyhn Hx Patient Social History Type Used: Cigarettes Former Smoker, Quit: Jul 29, 2005 2nd Hand Smoke Exposure: No Recent Foreign Travel: No Contact w/Someone Who Travel: No Recent Infectious Disease Expo: No Recent Hopitalizations: No Immunizations Up To Date Tetanus Booster (TDap): Unknown PED Vaccines UTD: No Date of Pneumonia Vaccine: Jul 27, 2018 Date of Influenza Vaccine: Jul 27, 2018 Seasonal Allergies Seasonal Allergies: No Past Medical History Surgeries: Yes Eye Surgery, Orthopedic, Tonsillectomy, Transurethral Resection, Vascular Surgery Respiratory: Yes (02 4l at hs, used to wear cpap) Pneumonia, Sleep Apnea, COPD Currently Using CPAP: No (DOESN'T USE IT) Currently Using BIPAP: No Cardiac: Yes (LBBB) Atrial Fibrillation, Chronic Edema/Swelling, High Cholesterol, Hypertension, Peripheral Vascular Neurological: Yes (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) Neuropathy Reproductive Disorders: No Sexually Transmitted Disease: No HIV/AIDS: No Genitourinary: Yes (TURP) Benign Prostatic Hyperpl, Prostate Problems, Renal Failure, UTI-Chronic Gastrointestinal: Yes Gastroesophageal Reflux, Chronic Constipation Musculoskeletal: Yes (GENERALIZED WEAKNESS; FREQUENT FALLS ) Endocrine: Yes Diabetes, Insulin dep HEENT: Yes Cataract, Macular Degeneration Hearing Impairment: Hard of Hearing Cancer: Yes (BASAL CELL CARCINOMA) Skin Did You Recieve Any Treatments: No Psychosocial: Yes Sleep Difficulties Integumentary: Yes (CELLULITIS IN LEFT KNEE EARLY OCTOBER 2013; DIABETIC FOOT ULCER. ) Recent Skin Changes Blood Disorders: No Adverse Reaction/Blood Tranf: No Family Medical History COPD 19 FATHER Colon cancer 19 MOTHER Diabetes mellitus G8 SISTER Drug abuse G8 SISTER Lung cancer 19 FATHER Polio G8 BROTHER Sarcoidosis G8 BROTHER Cancer Physical Exam Vital Signs - First Documented 01/17/19 01/17/19 12:17 14:42 Temp 98.0 Pulse 66 Resp 16 B/P (MAP) 146/73 (97) Pulse Ox 95 O2 Delivery Room Air O2 Flow Rate 6.00 Capillary Refill : Less Than 3 Seconds Height: 5'8.00" Weight: 165lbs. 0.0oz. 74.561925qd; 33.4 BMI Method:Estimated General Appearance: WD/WN, no apparent distress, other (84% on 4 L. Patient informs me that he has a [id number] history of smoking and of course his oxygen is low but he doesn't feel anymore short of breath than usual. Refuses to allow IV or lab draw or blood sugar states "you're not breaking my skin or ill paul". Informed him it would be just a pruritic and he states "that's what the lawsuit will feel like") Eyes: Bilateral Eye Normal Inspection, Bilateral Eye PERRL, Bilateral Eye EOMI HEENT: PERRL/EOMI, normal ENT inspection Neck: non-tender, full range of motion Respiratory: no respiratory distress, no accessory muscle use, decreased breath sounds Gastrointestinal: normal bowel sounds, non tender, soft Extremities: pedal edema (March) Neurologic/Psychiatric: alert, normal mood/affect, oriented x 3 Skin: normal color, warm/dry Procedures/Interventions Date of ETT Placement: Oct 13, 2016 Time of ETT Placement: 2129 Progress/Results/Core Measures Suspected Sepsis Recent Fever Within 48 Hours: No Infection Criteria Present: None New/Unexplained Altered Menta: No Sepsis Screen: No Definite Risk SIRS Temperature:98.0 Pulse: 66 Respiratory Rate: 16 Laboratory Tests 01/17/19 14:09: White Blood Count 10.4 Blood Pressure 146 /73 Mean: 97 Laboratory Tests 01/17/19 14:09: Creatinine 2.15H, Platelet Count 168, Total Bilirubin 1.2H Results/Orders Lab Results Laboratory Tests Test 01/17/19 14:09 Range/Units White Blood Count 10.4 4.3-11.0 10^3/uL Red Blood Count 2.67 L 4.35-5.85 10^6/uL Hemoglobin 8.0 L 13.3-17.7 G/DL Hematocrit 23 L 40-54 % Mean Corpuscular Volume 87 80-99 FL Mean Corpuscular Hemoglobin 30 25-34 PG Mean Corpuscular Hemoglobin Concent 34 32-36 G/DL Red Cell Distribution Width 15.4 H 10.0-14.5 % Platelet Count 168 130-400 10^3/uL Mean Platelet Volume 9.3 7.4-10.4 FL Neutrophils (%) (Auto) 76 H 42-75 % Lymphocytes (%) (Auto) 13 12-44 % Monocytes (%) (Auto) 10 0-12 % Eosinophils (%) (Auto) 0 0-10 % Basophils (%) (Auto) 0 0-10 % Neutrophils # (Auto) 8.0 H 1.8-7.8 X 10^3 Lymphocytes # (Auto) 1.4 1.0-4.0 X 10^3 Monocytes # (Auto) 1.0 0.0-1.0 X 10^3 Eosinophils # (Auto) 0.0 0.0-0.3 10^3/uL Basophils # (Auto) 0.0 0.0-0.1 10^3/uL Sodium Level 134 L 135-145 MMOL/L Potassium Level 4.8 3.6-5.0 MMOL/L Chloride Level 104 98-107 MMOL/L Carbon Dioxide Level 21 21-32 MMOL/L Anion Gap 9 5-14 MMOL/L Blood Urea Nitrogen 33 H 7-18 MG/DL Creatinine 2.15 H 0.60-1.30 MG/DL Estimat Glomerular Filtration Rate 30 BUN/Creatinine Ratio 15 Glucose Level 145 H 70-105 MG/DL Calcium Level 9.2 8.5-10.1 MG/DL Corrected Calcium 10.2 H 8.5-10.1 MG/DL Total Bilirubin 1.2 H 0.1-1.0 MG/DL Aspartate Amino Transf (AST/SGOT) 13 5-34 U/L Alanine Aminotransferase (ALT/SGPT) 9 0-55 U/L Alkaline Phosphatase 73 40-136 U/L B-Type Natriuretic Peptide 375.7 H <100.0 PG/ML Total Protein 6.2 L 6.4-8.2 GM/DL Albumin 2.8 L 3.2-4.5 GM/DL My Orders Orders - DEREK ST ORNAMENTAL IRONWORKER Cbc With Automated Diff (01/17/19 14:11) Comprehensive Metabolic Panel (01/17/19 14:11) Ua Culture If Indicated (01/17/19 14:11) Ed Iv/Invasive Line Start (01/17/19 14:11) Chest 1 View, Ap/Pa Only (01/17/19 14:11) BNP (01/17/19 14:11) Albuterol/Ipra Inhalation Soln (Duoneb I (01/17/19 14:15) Svn Small Volume Nebulizer (01/17/19 14:11) Haloperidol Injection (Haldol Injectio (01/17/19 14:30) Ceftriaxone For Iv Use (Rocephin For I (01/17/19 14:45) Blood Culture (01/17/19 15:27) Lactic Acid Analyzer (01/17/19 15:27) Medications Given in ED Current Medications Medications Dose Ordered Sig/Nidhi Route Start Time Stop Time Status Last Admin Dose Admin Albuterol/ Ipratropium 3 ml ONCE ONCE INH 01/17/19 14:15 01/17/19 14:16 DC 01/17/19 14:41 3 ML Ceftriaxone Sodium 1000 mg/ Sterile Water 10 ml @ 200 mls/hr ONCE ONCE IV 01/17/19 14:45 01/17/19 14:47 DC 01/17/19 15:13 200 MLS/HR Haloperidol Lactate 3 mg ONCE ONCE IM 01/17/19 14:30 01/17/19 14:31 DC 01/17/19 12:26 3 MG Vital Signs/I&O 01/17/19 01/17/19 12:17 14:42 Temp 98.0 Pulse 66 Resp 16 B/P (MAP) 146/73 (97) Pulse Ox 95 90 O2 Delivery Room Air Nasal Cannula O2 Flow Rate 6.00 Capillary Refill : Less Than 3 Seconds Blood Pressure Mean: 97 Diagnostic Imaging Diagonstic Imaging: Xray Plain Films/CT/US/NM/MRI: chest Comments NAME: ANIYAH MANZANARES [facility] REC#: [id number] PT STATUS: REG ER : 1935 PHYSICIAN: DEREK ST APRN ADMIT DATE: 01/17/19/ER Draft Date of Exam:01/17/19 CHEST 1 VIEW, AP/PA ONLY EXAMINATION: Portable erect AP chest at 2:48 PM. INDICATION: Shortness of breath. FINDINGS: The cardiomegaly noted on the prior exam of 12/31/2018 is again evident and no different. The previous study did show right lower lobe pneumonia/atelectasis. In the interval since the prior exam, the atelectasis/pneumonia and fluid in the right lung base has increased. There is also now left lower lobe pneumonia/atelectasis and some fluid. The central pulmonary vasculature is somewhat prominent but no different than on the prior exam. The upper lungs remain clear. The mediastinum is not widened. The osseous structures are intact. Multiple healed rib fractures are again seen on the right. IMPRESSION: The appearance of the chest has worsened since the prior exam as there is greater involvement of both lung bases by pneumonia/atelectasis and fluid. A followup study would be recommended for continued evaluation. Dictated on workstation # [id number] Dict: 01/17/19 1508 Trans: 01/17/19 1515 [id number] Interpreted by: KB REID MD Electronically signed by: Departure Communication (Admissions) I will not obtain a urine sample today since he has had one done 2 days ago here at the hospital, results reviewed. 1537-chest x-ray has worsened despite outpatient treatment and recent antibiotics. Patient does warrant inpatient hospitalization. Right now his heart rate is 66 atrial fibrillation, respiratory rate 25, 92% on 6 L which is an increase from his 4 L baseline. The pressure 142/71. We on house Y diversion for admission this as we do not have any bed availability, patient and his are agreeable to transfer to [facility] in [place]. I spoke with Dr. Pike hospitalist at [facility] who graciously accepts the patient. Would like old records sent with the patient, vancomycin and addition to Zosyn given. Impression Primary Impression: UTI (urinary tract infection) Qualified Codes: N39.0 - Urinary tract infection, site not specified Additional Impression: Pneumonia Disposition: 02 XFER SHT-TRM HOSP Condition: Stable Departure-Patient Inst. Decision time for Depature: 14:46 Referrals: RUBEN SANCHEZ MD (PCP/Family) Primary Care Physician Add. Discharge Instructions: 1. Return to ER for any concerns 2. Follow-up with your doctor next week 3. If you wish to pursue hospice, it is an excellent program you might call and discuss with them but opens situation to see if they can offer any suggestions. [phone] All discharge instructions reviewed with patient and/or family. Voiced understanding. Scripts Cefuroxime Axetil (Cefuroxime) 500 Mg Tablet 500 MG PO BID, #14 TAB Prov: DEREK ST APRN 01/17/19 Prednisone (Prednisone) 20 Mg Tab 40 MG PO DAILY, #8 TAB Prov: DEREK ST ORNAMENTAL IRONWORKER 01/17/[address] APRN Jan 17, 2019 13:09
--- NOTE | 2019-01-17 13:15 | NUR ---
PT'S KING IN ROOM ET DEREK WENT INTO TALK TO THEM BOTH.
--- NOTE | 2019-01-17 14:01 | NUR ---
DR JOHN AND DEREK IN ROOM WITH PT AT THIS TIME.
--- NOTE | 2019-01-17 14:10 | NUR ---
OXYGEN 91% ON NC 5.5L
[2019-01-17] MEDS ORDERED: RT-ALBUTEROL/IPRATROPIUM 3 ML (DUONEB) VIAL INH ONE (14:15)
[2019-01-17 14:17] LABS: BASOPHILS % (AUTO) 0 % (0-10); EOSINOPHILS % (AUTO) 0 % (0-10); HEMATOCRIT 23 % (40-54); LYMPHOCYTES # (AUTO) 1.4 X 10^3 (1.0-4.0); LYMPHOCYTES % (AUTO) 13 % (12-44); MEAN CORPUSCULAR HEMOGLOBIN 30 PG (25-34); MEAN CORPUSCULAR HGB CONC 34 G/DL (32-36); MEAN CORPUSCULAR VOLUME 87 FL (80-99); MEAN PLATELET VOLUME 9.3 FL (7.4-10.4); MONOCYTES % (AUTO) 10 % (0-12); NEUTROPHILS % (AUTO) 76 % (42-75); PLATELET COUNT 168 10^3/uL (130-400); RED CELL DISTRIBUTION WIDTH 15.4 % (10.0-14.5); WHITE BLOOD COUNT 10.4 10^3/uL (4.3-11.0)
[2019-01-17] MEDS ORDERED: HALOPERIDOL 5 MG/ML (HALDOL) AMP IM ONE (14:30)
[2019-01-17 14:32] LABS: ALBUMIN 2.8 GM/DL (3.2-4.5); BILIRUBIN,TOTAL 1.2 MG/DL (0.1-1.0); CALCIUM 9.2 MG/DL (8.5-10.1); CREATININE SERUM 2.15 MG/DL (0.60-1.30); POTASSIUM 4.8 MMOL/L (3.6-5.0); TOTAL PROTEIN 6.2 GM/DL (6.4-8.2)
--- NOTE | 2019-01-17 14:37 | NUR ---
RT IN ROOM AT THIS TIME.
[2019-01-17] MEDS ORDERED: cefTRIAXone FOR IV USE 1,000 MG in WATER (STERILE) FOR INJECTION 10 ML IV ONE (14:45)
[2019-01-17] MEDS ORDERED: PRD20T PO (14:47)
[2019-01-17] MEDS ORDERED: CEFU500T63 PO (14:47)
--- NOTE | 2019-01-17 14:53 | NUR ---
RT STATES SHE HAS INCRESED HIS OXYGEN TO 8LNC.
--- NOTE | 2019-01-17 15:15 | Diagnostic Imaging Report ---
EXAMINATION: Portable erect AP chest at 2:48 PM. INDICATION: Shortness of breath. FINDINGS: The cardiomegaly noted on the prior exam of 12/31/2018 is again evident and no different. The previous study did show right lower lobe pneumonia/atelectasis. In the interval since the prior exam, the atelectasis/pneumonia and fluid in the right lung base has increased. There is also now left lower lobe pneumonia/atelectasis and some fluid. The central pulmonary vasculature is somewhat prominent but no different than on the prior exam. The upper lungs remain clear. The mediastinum is not widened. The osseous structures are intact. Multiple healed rib fractures are again seen on the right. IMPRESSION: The appearance of the chest has worsened since the prior exam as there is greater involvement of both lung bases by pneumonia/atelectasis and fluid. A followup study would be recommended for continued evaluation. Dictated by: Dictated on workstation # [id number]
--- NOTE | 2019-01-17 15:34 | NUR ---
RADIOLOGY NOTIFIED TO CLOUD IMAGES TO [facility].
[2019-01-17] MEDS ORDERED: VANCOMYCIN INJECTION 1,000 MG in NS (IVPB) 250 ML IV SCH (16:00)
--- NOTE | 2019-01-17 16:04 | NUR ---
ATTEMPT TO CALL REPORT TO [facility]. NURSE HAI CLAROS WILL CALL ME BACK. DEREK TALKED WITH DISPATCH CONCERNING TRANSFER.
--- NOTE | 2019-01-17 16:19 | NUR ---
PHARMACY CONTACTED AGAIN FOR VANCOMYCIN
[2019-01-17 16:39] VITALS: BP 159/83
== END 2019-01-17 16:39 | disposition short-term general hospital (02) ==
LOC: EDUNIT# 12:17 → ER 12:18
DX: N39.0 Urinary tract infection, site not specified (principal); J18.9 Pneumonia, unspecified organism; G47.30 Sleep apnea, unspecified; J44.9 Chronic obstructive pulmonary disease, unspecified; I48.91 Unspecified atrial fibrillation; E78.00 Pure hypercholesterolemia, unspecified; I10 Essential (primary) hypertension; E11.621 Type 2 diabetes mellitus with foot ulcer; L97.529 Non-pressure chronic ulcer of other part of left foot with unspecified severity; E11.51 Type 2 diabetes mellitus with diabetic peripheral angiopathy without gangrene; I73.9 Peripheral vascular disease, unspecified; E11.40 Type 2 diabetes mellitus with diabetic neuropathy, unspecified; I25.2 Old myocardial infarction; K21.9 Gastro-esophageal reflux disease without esophagitis; Z87.19 Personal history of other diseases of the digestive system; Z85.828 Personal history of other malignant neoplasm of skin; Z80.0 Family history of malignant neoplasm of digestive organs; Z80.1 Family history of malignant neoplasm of trachea, bronchus and lung; Z87.448 Personal history of other diseases of urinary system; Z88.2 Allergy status to sulfonamides; Z88.8 Allergy status to other drugs, medicaments and biological substances; Z79.82 Long term (current) use of aspirin; Z79.02 Long term (current) use of antithrombotics/antiplatelets; Z79.4 Long term (current) use of insulin; Z79.52 Long term (current) use of systemic steroids; Z87.891 Personal history of nicotine dependence; Z90.89 Acquired absence of other organs; Z98.890 Other specified postprocedural states; Z90.79 Acquired absence of other genital organ(s); Z87.01 Personal history of pneumonia (recurrent)
CPT/HCPCS: 36415; 71045; 80053; 83605; 83880; 85025; 87040; 93005; 94640; 96372; 96374; 96375